=== PATIENT | male | born 1970 | race Caucasian/White ===

== ENCOUNTER 2016-06-29 23:20 | Inpatient (IN) | payer OTHER ==
[~2016-06-29] VITALS: Ht 175.3 cm; Wt 88.5 kg
[2016-06-29] MEDS: NITROGLYCERIN 0.4 MG SL 25 TABS/BTL SL SCH ×3 (00:05→23:58)
[~2016-06-29 23:20] MED LIST: ASPI325T PO; CARD240C6 PO; DILA100C PO; IBUP-232 PO; LORA-474 PO; PANT20 PO
[2016-06-29 23:22] VITALS: BP 127/87; PULSE 124; RESP 24; TEMP 97.7
[2016-06-29 23:25] VITALS: O2SAT 99
[2016-06-29] MEDS ORDERED: SODIUM CHLORIDE 0.9% FLUSH 5 ML FLUSH IVF PRN (23:45)
[2016-06-29] MEDS ORDERED: DILTIAZEM HCL 25 MG/5 ML VIAL IV PUSH ONE (23:45)
[2016-06-29] MEDS ORDERED: ASPIRIN 325 MG TAB PO ONE (23:45)
[2016-06-30] VITALS (30 sets, daily range): BP systolic 96–154; BP diastolic 67–96; PULSE 84–138; RESP 14–22; TEMP 97.6–98.7; O2SAT 92–97
[2016-06-30 00:04] LABS: AUTOMATED NEUTROPHIL # 5.8 TH/MM3 (1.8-7.7); BASOPHIL # 0.1 TH/MM3 (0-0.2); BASOPHIL % 0.8 % (0.0-2.0); EOSINOPHIL # 0.1 TH/MM3 (0-0.4); EOSINOPHIL % 0.7 % (0.0-4.0); HEMATOCRIT 40.4 % (39.0-51.0); HEMO FLAGS DIFF FINAL; LYMPHOCYTE # 1.8 TH/MM3 (1.0-4.8); MEAN CELL VOLUME 97.3 FL (80.0-100.0); MEAN CORPUSCULAR HEMOGLOBIN 34.2 PG (27.0-34.0); MEAN CORPUSCULAR HGB CONC 35.2 % (32.0-36.0); MONO % 11.4 % (0.0-8.0); NEUT % 66.1 % (16.0-70.0); PLATELET COUNT 115 TH/MM3 (150-450); RED BLOOD COUNT 4.15 MIL/MM3 (4.50-5.90); RED CELL DISTRIBUTION WIDTH 14.2 % (11.6-17.2); WHITE BLOOD COUNT 8.8 TH/MM3 (4.0-11.0)
[2016-06-30] MEDS: RESP: ALBUTEROL 2.5 MG/IPRATROPIUM 0.5 MG NEB (SCH) INH ×2 (00:08→00:09)
[2016-06-30 00:10] LABS: APTT (PATIENT) 30.6 SEC (24.3-30.1); INTERNATIONAL NORMALIZED RATIO 1.4 RATIO; PROTHROMBIN TIME - PATIENT 16.1 SEC (9.8-11.6)
[2016-06-30 00:25] LABS: ANION GAP 10 MEQ/L (5-15); BICARBONATE 26.8 MEQ/L (21.0-32.0); BLOOD UREA NITROGEN 12 MG/DL (7-18); CHLORIDE 94 MEQ/L (98-107); GLOMERULAR FILTRATION RATE 98 ML/MIN (>89); MAGNESIUM 1.1 MG/DL (1.5-2.5); POTASSIUM 3.5 MEQ/L (3.5-5.1); SODIUM (NA) 131 MEQ/L (136-145)
[2016-06-30 00:35] LABS: CREATINE KINASE 232 U/L (39-308)
[2016-06-30 00:43] LABS: CALCIUM-PROTEIN CORRECTED 6.8 MG/DL (8.5-10.1)
--- NOTE | 2016-06-30 00:47 | PD ---
HPI Chief Complaint: Respiratory Symptoms Time Seen by Provider: 23:44 Travel History International Travel<30 days: No Contact w/Intl Traveler<30days: No Traveled to known affect area: No History of Present Illness HPI The patient's 45 years old. He arrives by EMS. He is undomiciled. He reports that the past couple has had shortness of breath a sharp chest pain frequent cough with green sputum and dyspnea. EMS reports wheezing bilaterally. They noticed A. fib on their arrival with a heart rate about 110 to 120s. The patient was given to albuterol nebulized treatments and 1 L normal saline. 125 mg Solu-Medrol also given. The heart rate increased to 150. 20mg Cardizem given and rate upon ER arrival was 120s. EMS reports minimal coughing en route to the ER. Patient states he is having difficulty breathing times a couple weeks now. He denies a known history of AL. He reports smoking tobacco however intends to quit. PFSH Past Medical History Arthritis: Yes Cardiovascular Problems: Yes Diminished Hearing: No Gastrointestinal Disorders: Yes Genitourinary: No Immune Disorder: No Musculoskeletal: Yes Neurologic: Yes Reproductive: No Respiratory: No Seizures: Yes Tetanus Vaccination: Unknown Influenza Vaccination: Yes Past Surgical History Abdominal Surgery: Yes (COLOSTOMY AND REVERSAL) Eye Surgery: Yes ( A CHILD) Other Surgery: Yes Social History Alcohol Use: Yes (DAILY) Tobacco Use: Yes Substance Use: No (PAST HX OF HEROINE) Allergies-Medications (Allergen,Severity, Reaction): Coded Allergies: No Known Allergies (Unverified , 06/29/16) Reported Meds & Prescriptions Reported Meds & Active Scripts Active No Active Prescriptions or Reported Medications Review of Systems Except as stated in HPI: all other systems reviewed are Neg General / Constitutional: No: Fever, Chills Cardiovascular: Positive: Chest Pain or Discomfort Respiratory: Positive: Cough, Shortness of Breath, Wheezing Physical Exam Narrative GENERAL: 45 yo M, WNWD, undomiciled/poor hygiene SKIN: Warm and dry. HEAD: Atraumatic. Normocephalic. EYES: Pupils equal and round. No scleral icterus. No injection or drainage. ENT: No nasal bleeding or discharge. Mucous membranes pink and moist. NECK: Trachea midline. No JVD. CARDIOVASCULAR: Regular rate and rhythm. RESPIRATORY: Coarse wheezing present bilaterally. Minimal tachypnea. The patient speaks full sentences. GASTROINTESTINAL: Abdomen soft, non-tender, nondistended. Hepatic and splenic margins not palpable. MUSCULOSKELETAL: Extremities without clubbing, cyanosis. 2+ pitting edema is present bilaterally. NEUROLOGICAL: Awake and alert. No obvious cranial nerve deficits. Motor grossly within normal limits. Five out of 5 muscle strength in the arms and legs. Normal speech. PSYCHIATRIC: Appropriate mood and affect; insight and judgment normal. Data Data Last Documented VS Vital Signs Date Time Temp Pulse Resp B/P Pulse Ox O2 Delivery O2 Flow Rate FiO2 06/30/16 00:38 102 18 96/67 95 Room Air 06/29/16 23:25 2 06/29/16 23:22 97.7 Vital signs reviewed Orders Electrocardiogram (06/29/16 23:44) Basic Metabolic Panel (Bmp) (06/29/16 23:44) B-Type Natriuretic Peptide (06/29/16 23:44) Ckmb (Isoenzyme) Profile (06/29/16 23:44) Complete Blood Count With Diff (06/29/16 23:44) Magnesium (Mg) (06/29/16 23:44) Prothrombin Time / Inr (Pt) (06/29/16 23:44) Act Partial Throm Time (Ptt) (06/29/16 23:44) Troponin I (06/29/16 23:44) Chest, Single Ap (06/29/16 23:44) Ecg Monitoring (06/29/16 23:44) Iv Access Insert/Monitor (06/29/16 23:44) Oximetry (06/29/16 23:44) Oxygen Administration (06/29/16 23:44) Aspirin (Aspirin) (06/29/16 23:45) Sodium Chloride 0.9% Flush (Ns Flush) (06/29/16 23:45) Nitroglycerin Sl (Nitrostat Sl) (06/29/16 23:45) Albuterol-Ipratropium Neb (Duoneb Neb) (06/29/16 23:45) Diltiazem Inj (Cardizem Inj) (06/29/16 23:45) Diltiazem Inj (Cardizem Inj) (06/29/16 23:45) Protein Corrected Calcium(Pcc) (06/29/16 23:50) CKMB (06/29/16 23:50) CKMB% (06/29/16 23:50) Blood Culture (06/30/16 00:47) Ceftriaxone Inj (Rocephin Inj) (06/30/16 01:00) Azithromycin Inj (Zithromax Inj) (06/30/16 01:00) Aspirin (Aspirin) (06/30/16 01:00) Nitroglycerin 2% Oint (Nitroglycerin 2% (06/30/16 01:00) Enoxaparin Inj (Lovenox Inj) (06/30/16 01:00) Furosemide Inj (Lasix Inj) (06/30/16 01:00) Calcium Gluconate Inj (Calcium Gluconate (06/30/16 01:00) Magnesium Sulfate 1 Gm Premix (Magnesium (06/30/16 01:00) Labs Laboratory Tests Test 06/29/16 23:50 White Blood Count 8.8 TH/MM3 Red Blood Count 4.15 MIL/MM3 Hemoglobin 14.2 GM/DL Hematocrit 40.4 % Mean Corpuscular Volume 97.3 FL Mean Corpuscular Hemoglobin 34.2 PG Mean Corpuscular Hemoglobin 35.2 % Concent Red Cell Distribution Width 14.2 % Platelet Count 115 TH/MM3 Mean Platelet Volume 9.3 FL Neutrophils (%) (Auto) 66.1 % Lymphocytes (%) (Auto) 21.0 % Monocytes (%) (Auto) 11.4 % Eosinophils (%) (Auto) 0.7 % Basophils (%) (Auto) 0.8 % Neutrophils # (Auto) 5.8 TH/MM3 Lymphocytes # (Auto) 1.8 TH/MM3 Monocytes # (Auto) 1.0 TH/MM3 Eosinophils # (Auto) 0.1 TH/MM3 Basophils # (Auto) 0.1 TH/MM3 CBC Comment DIFF FINAL Differential Comment Prothrombin Time 16.1 SEC Prothromb Time International 1.4 RATIO Ratio Activated Partial 30.6 SEC Thromboplast Time Sodium Level 131 MEQ/L Potassium Level 3.5 MEQ/L Chloride Level 94 MEQ/L Carbon Dioxide Level 26.8 MEQ/L Anion Gap 10 MEQ/L Blood Urea Nitrogen 12 MG/DL Creatinine 0.84 MG/DL Estimat Glomerular Filtration 98 ML/MIN Rate Random Glucose 125 MG/DL Calcium Level 7.0 MG/DL Protein Corrected Calcium 6.8 MG/DL Magnesium Level 1.1 MG/DL Total Creatine Kinase 232 U/L Troponin I 0.12 NG/ML B-Type Natriuretic Peptide 785 PG/ML Total Protein 7.7 GM/DL MDM Medical Decision Making Medical Screen Exam Complete: Yes Emergency Medical Condition: Yes Medical Record Reviewed: Yes Differential Diagnosis NSTEMI, unstable angina, coronary vasospasm, PE, PTX, aortic dissection, pericarditis, myocarditis, endocarditis, PNA, esophageal disease, aneurysm, musculoskeletal etiologies, anxiety, cocaine/sympathomimetic abuse Narrative Course CBC & BMP Diagram 06/29/16 23:50 BNP 785 Troponin 0.12 Magnesium 1.1 Protein corrected calcium 6.8 EKG reveals atrial fibrillation with a rate of 110, left anterior fascicular block pattern INR 1.4 Chest x-ray reveals a right base consolidation with cardiomegaly. Rocephin azithromycin initiated. Blood cultures drawn. 40 mg IV Lasix given. The patient received about 5 rounds of nebulized breathing treatments. He received 125 mg Solu-Medrol. Nitropaste applied. Cardizem drip started. Magnesium replenished. Calcium replenished. Aspirin given. d/w Dr Guerrero. CIC placement. Critical Care Narrative Aggregate critical care time was 33 minutes. Time to perform other separately billable procedures was not included in the critical care time. My time did not include minutes spent treating any other patients simultaneously or on activities that did not directly contribute to the patient's treatment. The services I provided to this patient were to treat and/or prevent clinically significant deterioration that could result in: Pulmonary arrest, sepsis, septic shock, cardiac arrest I provided critical care services requiring my management, as noted below: Chart data review, documentation time, medication orders and management, vital sign assessments/reviewing monitor data, ordering and reviewing lab tests, ordering and interpreting/reviewing x-rays and diagnostic studies, care of the patient and discussion of the patient with the admitting physicians. Diagnosis Primary Impression: CHF (congestive heart failure) Qualified Code: I50.9 - Congestive heart failure, unspecified congestive heart failure chronicity, unspecified congestive heart failure type Additional Impressions: PNA (pneumonia) Qualified Code: J18.1 - Pneumonia of right lower lobe due to infectious organism Dyspnea Qualified Code: R06.00 - Dyspnea, unspecified type Chest pain Qualified Code: R07.9 - Chest pain, unspecified type Hypomagnesemia Hypocalcemia NSTEMI (non-ST elevated myocardial infarction) Atrial fibrillation with RVR Admitting Information Admitting Physician Requests: Admit Scripts No Active Prescriptions or Reported Meds Rl Rogers MD Jun 30, 2016 00:47
[2016-06-30] MEDS ORDERED: AZITHROMYCIN INJ 500 MG in SODIUM CHLOR 0.9% 250 ML INJ 250 ML IV ONE (01:00)
[2016-06-30] MEDS ORDERED: ENOXAPARIN SODIUM 100 MG/ML SYRINGE SQ ONE (01:00)
[2016-06-30] MEDS ORDERED: CALCIUM GLUCONATE INJ 1 GM in DEXTROSE 5% IN WATER 100ML INJ 100 ML IV ONE ×4 (01:00→18:00)
[2016-06-30] MEDS ORDERED: FUROSEMIDE 40 MG/4 ML VIAL IV PUSH ONE (01:00)
[2016-06-30] MEDS ORDERED: cefTRIAXone INJ 1,000 MG in SODIUM CHLORIDE 0.9% INJ 100 ML IV ONE (01:00)
[2016-06-30] MEDS ORDERED: ASPIRIN 325 MG TAB PO ONE (01:00)
[2016-06-30] MEDS ORDERED: NITROGLYCERIN 2% OINT 1 GM PACKET TOP ONE (01:00)
[2016-06-30 01:02] LABS: CKMB 5.1 NG/ML (0.5-3.6)
[2016-06-30] MEDS ORDERED: ONDANSETRON HCL 4 MG/2 ML VIAL IVP PRN (01:15)
[2016-06-30] MEDS ORDERED: NALOXONE HCL 0.4 MG/ML AMP IV PRN (01:15)
[2016-06-30] MEDS: MAGNESIUM SULFATE 1 GM PREMIX 100 ML IV SCH ×2 (01:20→02:12)
--- NOTE | 2016-06-30 01:27 | RADRPT ---
EXAM DATE/TIME: 06/29/2016 23:49 [facility] COMPARISON: No previous studies available for comparison. INDICATIONS : Chest pain. MEDICAL HISTORY : None. SURGICAL HISTORY : None. ENCOUNTER: Initial ACUITY: 1 day PAIN SCORE: 4/10 LOCATION: Bilateral chest FINDINGS: Single AP view of the chest. Confluent opacity in the right lower lung indicating pulmonary consolida tion. Small right pleural effusion. Moderate cardiac silhouette enlargement. No evidence of pneumotho rax. CONCLUSION: 1. Right lower lung consolidation and small right pleural effusion. 2. Moderate cardiac silhouette enlargement. Gaudencio Marcum MD on June 30, 2016 at 1:23 Board Certified Radiologist. This report was verified electronically.
[2016-06-30] MEDS: DILTIAZEM INJ 125 MG in SODIUM CHLORIDE 0.9% INJ 100 ML IV SCH ×2 (02:48→19:33)
[2016-06-30] MEDS: SODIUM CHLOR 0.9% 1000 ML INJ 1,000 ML IV SCH ×2 (04:13→15:15)
[2016-06-30 06:43] LABS: INTERNATIONAL NORMALIZED RATIO 1.4 RATIO; PROTHROMBIN TIME - PATIENT 15.6 SEC (9.8-11.6)
[2016-06-30 07:08] LABS: BICARBONATE 25.4 MEQ/L (21.0-32.0); POTASSIUM 3.2 MEQ/L (3.5-5.1)
[2016-06-30 07:25] LABS: CALCIUM-PROTEIN CORRECTED 6.9 MG/DL (8.5-10.1)
--- NOTE | 2016-06-30 08:29 | HHI.HP ---
[facility] Service [facility] Primary Care Physician No Primary Care Physician Admission Diagnosis AFib w RVR, CHF, R Lung PNA, HypoMg, HypoCa, CP, NSTEMI, Dyspnea Diagnoses: (1) Atrial fibrillation with RVR Diagnosis: Principal (2) PNA (pneumonia) Diagnosis: Principal (3) COPD exacerbation Diagnosis: Principal (4) Elevated troponin Diagnosis: Principal Travel History International Travel<30 Days: No Contact w/Intl Traveler <30 Da: No Traveled to Known Affected Are: No History of Present Illness patient is a 45 y/o male with history of COPD and atrial fibrillation who presented to ER with three week history of sob and cough. cough is productive of yellowish sputum. he says that he had on and off fever and chills. he's also complaining of some left sided chest pain. pain is radiating to the right chest. pain is better with sitting up. he says that he's trying to quit smoking and he drinks four beers a day. he says that he was diagnosed with COPD and A- fib few years ago but he doesn't take any medications. Review of Systems Constitutional: COMPLAINS OF: Fever, Chills, DENIES: Weight loss, Night Sweats Eyes: DENIES: Blurred vision, Diplopia, Vision loss, Double Vision Ears, nose, mouth, throat: DENIES: Tinnitus, Vertigo, Throat pain, Epistaxis Respiratory: COMPLAINS OF: Cough, Sputum production, Shortness of breath, DENIES: Apneas, Snoring, Wheezing, Hemoptysis Cardiovascular: COMPLAINS OF: Chest pain, DENIES: Palpitations, Syncope, Dyspnea on Exertion, PND, Lower Extremity Edema, Orthopnea, Claudication Gastrointestinal: DENIES: Abdominal pain, Black stools, Bloody stools, Constipation, Diarrhea, Nausea, Vomiting, Difficulty Swallowing, Anorexia Genitourinary: DENIES: Urinary frequency, Urgency, Hematuria, Dysuria Musculoskeletal: DENIES: Joint pain, Muscle aches, Stiffness, Joint Swelling Integumentary: DENIES: Rash Neurologic: DENIES: Abnormal gait, Headache, Localized weakness, Paresthesias, Seizures, Speech Problems, Tremor, Poor Balance Psychiatric: DENIES: Anxiety, Confusion, Mood changes, Depression, Hallucinations, Agitation, Suicidal Ideation, Homicidal Ideation, Delusions Past Family Social History Past Medical History COPD atrial fibrillation diverticulitis Past Surgical History colostomy Reported Medications none Allergies: Coded Allergies: No Known Allergies (Unverified , 06/29/16) Active Ordered Medications Current Medications Aspirin (Aspirin) 325 mg ONCE ONCE PO Last administered on 06/29/16 23:58; Start 06/29/16 at 23:45; Stop 06/29/16 at 23:46; Status DC IV Flush (NS Flush) 2 ml UNSCH PRN IVF FLUSH AFTER USING IV ACCESS; Start 06/29 at 23:45 Nitroglycerin (Nitrostat Sl) 0.4 mg Q5M SL Last administered on 06/29/16 00:05 ; Start 06/29/16 at 23:45; Stop 06/29/16 at 23:56; Status DC Albuterol/ Ipratropium 1 ampule 1 ampule Q15M INH Last administered on 00:09; Start 06/29/16 at 23:45; Stop 06/30/16 at 00:16; Status DC Diltiazem HCl/ Sodium Chloride (Cardizem Inj/NS Inj) 125 ml @ 0 mls/hr TITRATE IV Last administered on 06/30/16 02:48; Start 06/29/16 at 23:45 Diltiazem HCl 23 mg 23 mg BOLUS ONCE IV PUSH ; Start 06/29/16 at 23:45; Stop at 23:46; Status DC Ceftriaxone Sodium 1000 mg/ Sodium Chloride 100 ml @ 200 mls/hr ONCE ONCE IV Last administered on 06/30/16 01:20; Start 06/30/16 at 01:00; Stop 06/30/16 at 01:29; Status DC Azithromycin/ Sodium Chloride (Zithromax Inj/ NS 250 ml Inj) 250 ml @ 250 mls/ hr ONCE ONCE IV Last administered on 06/30/16 04:13; Start 06/30/16 at 01:00 ; Stop 06/30/16 at 01:59; Status DC Aspirin (Aspirin) 325 mg ONCE ONCE PO ; Start 06/30/16 at 01:00; Stop 06/30/16 at 01:01; Status DC Nitroglycerin (Nitroglycerin 2% Oint) 1 inch ONCE ONCE TOP Last administered on 06/30/16 01:20; Start 06/30/16 at 01:00; Stop 06/30/16 at 01:01; Status DC Enoxaparin Sodium (Lovenox Inj) 90 mg ONCE ONCE SQ Last administered on 01:20; Start 06/30/16 at 01:00; Stop 06/30/16 at 01:01; Status DC Furosemide 40 mg 40 mg ONCE ONCE IV PUSH Last administered on 06/30/16 01:20 ; Start 06/30/16 at 01:00; Stop 06/30/16 at 01:01; Status DC Calcium Gluconate 1 gm/Dextrose 110 ml @ 110 mls/hr ONCE ONCE IV Last administered on 06/30/16 02:12; Start 06/30/16 at 01:00; Stop 06/30/16 at 01:59 ; Status DC Magnesium Sulfate/ Dextrose 100 ml @ 100 mls/hr Q1H IV Last administered on 02:12; Start 06/30/16 at 01:00; Stop 06/30/16 at 02:59; Status DC Sodium Chloride (NS 1000 ml Inj) 1,000 ml @ 100 mls/hr Q10H IV Last administered on 06/30/16 04:13; Start 06/30/16 at 01:09 Acetaminophen (Tylenol) 650 mg Q4H PRN PO TEMP > 100.4; Start 06/30/16 at 01:15 Ondansetron HCl (Zofran Inj) 4 mg Q6H PRN IVP NAUSEA OR VOMITING; Start at 01:15 Magnesium Hydroxide (Milk Of Magnesia Liq) 30 ml Q12H PRN PO CONSTIPATION; Start 06/30/16 at 01:15 Enoxaparin Sodium (Lovenox Inj) 90 mg Q12H SQ ; Start 06/30/16 at 13:00 Naloxone HCl 0.4 mg 0.4 mg UNSCH PRN IV SEE LABEL COMMENTS; Start 06/30/16 at 01:15 Ceftriaxone Sodium 1000 mg/ Sodium Chloride 100 ml @ 200 mls/hr Q24H IV ; Start 07/01/16 at 01:00 Azithromycin/ Sodium Chloride (Zithromax Inj/ NS 250 ml Inj) 250 ml @ 250 mls/ hr Q24H IV ; Start 07/01/16 at 01:00 Family History diabetes Social History smokes and drinks daily. Physical Exam Vital Signs Vital Signs Date Time Temp Pulse Resp B/P Pulse Ox O2 Delivery O2 Flow Rate FiO2 06/30/16 06:00 85 06/30/16 05:00 102 06/30/16 04:00 102 06/30/16 03:00 117 06/30/16 03:00 97.6 117 18 123/96 97 06/30/16 02:13 104 20 130/71 96 Nasal Cannula 2 06/30/16 01:13 103 20 118/68 97 Nasal Cannula 2 06/30/16 00:38 102 18 96/67 95 Room Air 06/30/16 00:38 94 Room Air 06/30/16 00:05 95 Nasal Cannula 2.50 06/29/16 23:25 118 24 92 Room Air 06/29/16 23:25 99 Nasal Cannula 2 06/29/16 23:22 97.7 124 24 127/87 Physical Exam GENERAL: somewhat ill looking SKIN: No rashes, ecchymoses or lesions. Cool and dry. HEAD: Atraumatic. Normocephalic. No temporal or scalp tenderness. EYES: Pupils equal round and reactive. Extraocular motions intact. No scleral icterus. No injection or drainage. ENT: Nose without bleeding, purulent drainage or septal hematoma. Throat without erythema, tonsillar hypertrophy or exudate. Uvula midline. Airway patent. NECK: Trachea midline. No JVD or lymphadenopathy. Supple, nontender, no meningeal signs. CARDIOVASCULAR: tachycardic with irregular rhythm RESPIRATORY: diminished air entry in bases GASTROINTESTINAL: Abdomen soft, non-tender, nondistended. No hepato-splenomegaly , or palpable masses. No guarding. MUSCULOSKELETAL: Extremities without clubbing, cyanosis, or edema. No joint tenderness, effusion, or edema noted. No calf tenderness. Negative Homans sign bilaterally. NEUROLOGICAL: Awake and alert. Cranial nerves II through XII intact. Motor and sensory grossly within normal limits. Five out of 5 muscle strength in all muscle groups. Normal speech. Laboratory Laboratory Tests Test 06/29/16 06/30/16 23:50 06:16 White Blood Count 8.8 Red Blood Count 4.15 Hemoglobin 14.2 Hematocrit 40.4 Mean Corpuscular Volume 97.3 Mean Corpuscular Hemoglobin 34.2 Mean Corpuscular Hemoglobin 35.2 Concent Red Cell Distribution Width 14.2 Platelet Count 115 Mean Platelet Volume 9.3 Neutrophils (%) (Auto) 66.1 Lymphocytes (%) (Auto) 21.0 Monocytes (%) (Auto) 11.4 Eosinophils (%) (Auto) 0.7 Basophils (%) (Auto) 0.8 Neutrophils # (Auto) 5.8 Lymphocytes # (Auto) 1.8 Monocytes # (Auto) 1.0 Eosinophils # (Auto) 0.1 Basophils # (Auto) 0.1 CBC Comment DIFF FINAL Differential Comment Prothrombin Time 16.1 15.6 Prothromb Time International 1.4 1.4 Ratio Activated Partial 30.6 Thromboplast Time Sodium Level 131 133 Potassium Level 3.5 3.2 Chloride Level 94 95 Carbon Dioxide Level 26.8 25.4 Anion Gap 10 13 Blood Urea Nitrogen 12 9 Creatinine 0.84 0.69 Estimat Glomerular Filtration 98 123 Rate Random Glucose 125 157 Calcium Level 7.0 7.1 Protein Corrected Calcium 6.8 6.9 Magnesium Level 1.1 Total Creatine Kinase 232 181 Creatine Kinase MB 5.1 Troponin I 0.12 0.12 B-Type Natriuretic Peptide 785 Total Protein 7.7 7.6 Date/Time Procedure Status Source Growth 06/30/16 01:20 Aerobic Blood Culture Received Blood Peripheral Pending 06/30/16 01:20 Anaerobic Blood Culture Received Blood Peripheral Pending Result Diagram: 06/29/16 2350 06/30/16 0616 Imaging CXR; RLL consolidation EKG; atrial fibrillation with rapid ventricular response Assessment and Plan Assessment and Plan A/P - COPD exacerbation/ RLL pneumonia continue with IV antibiotics- start IV steroids and neb treatment- keep on oxygen to keep O2 sat > 90%- follow the cultures counselled on smoking cessation. -atrial fibrillation with rapid ventricular response continue Cardizem drip- started on Lovenox- cardiology consulted echo ( 02/01) with EF 55% -elevated troponin- received a dose of aspirin earlier- cardiology consulted -alcohol abuse; start thiamine and multivitamin/ ativan as needed- watch for withdrawal counselled on drinking cessation -hypokalemia/ hypocalcemia/ hypomagnesemia; will replace and monitor -thrombocytopenia; chronic due to alcohol- will monitor -DVT prophylaxis; on Lovenox- will monitor CBC closely due to thrombocytopenia Discussed Condition With the patient and RN. Physician Certification 2 Midnight Certification Type: Admission for Inpatient Services Order for Inpatient Services The services are ordered in accordance with Medicare regulations or non- Medicare payer requirements, as applicable. In the case of services not specified as inpatient-only, they are appropriately provided as inpatient services in accordance with the 2-midnight benchmark. Estimated LOS (days): 2 days is the estimated time the patient will need to remain in the hospital, assuming treatment plan goals are met and no additional complications. Post-Hospital Plan: Home Problem Qualifiers (1) PNA (pneumonia): Qualified Code: J18.1 - Pneumonia of right lower lobe due to infectious organism Sam Malik MD Jun 30, 2016 08:29
[2016-06-30] MEDS ORDERED: POTASSIUM CHLORIDE 20 MEQ CONTROLLED RELEASE TAB PO ONE ×2 (08:30→12:00)
[2016-06-30] MEDS ORDERED: RESP: ALBUTEROL 1.25 MG/3 ML NEB (PRN) NEB (08:30)
[2016-06-30] MEDS ORDERED: LORazepam 2 MG/ML VIAL IV PUSH PRN ×5 (08:30→21:45)
[2016-06-30] MEDS: methylPREDNISolone SOD SUCC 40 MG/1 ML VIAL IV PUSH SCH ×3 (09:05→21:08)
[2016-06-30] MEDS: THIAMINE HCL 100 MG TAB PO SCH (09:05)
[2016-06-30] MEDS: MULTIVITAMIN TAB PO SCH (09:05)
[2016-06-30] MEDS ORDERED: DILTIAZEM-CD 120 MG CAP ER PO SCH (10:15)
[2016-06-30 11:26] LABS: BICARBONATE 26.5 MEQ/L (21.0-32.0); MAGNESIUM 1.1 MG/DL (1.5-2.5); POTASSIUM 3.6 MEQ/L (3.5-5.1)
[2016-06-30] MEDS: RESP: ALBUTEROL 2.5 MG/IPRATROPIUM 0.5 MG NEB (SCH) NEB ×3 (11:43→20:40)
[2016-06-30] MEDS: ENOXAPARIN SODIUM 100 MG/ML SYRINGE SQ SCH (11:56)
[2016-06-30 12:08] LABS: CALCIUM-PROTEIN CORRECTED 7.1 MG/DL (8.5-10.1)
[2016-06-30 12:43] LABS: MAGNESIUM 1.1 MG/DL (1.5-2.5)
--- NOTE | 2016-06-30 13:02 | MB ---
cc: YANET VELASQUEZ MD DATE OF CONSULTATION 06/30/2016 REASON FOR CONSULTATION Atrial fibrillation with rapid ventricular rate. HISTORY OF PRESENT ILLNESS Mr. Polk is a 45-year-old man [place] does give a longstanding history atrial fibrillation and medication noncompliance as he is unable to afford his medications. He does report a three-week history of shortness of breath and cough with yellow sputum with fever and chills. He was admitted and is being treated for pneumonia. He denied any chest pain to me. Cardiology was consulted for the atrial fibrillation. PAST MEDICAL HISTORY 1. Seizure disorder. 2. Diverticular disease. 3. Colostomy with reversal. 4. Atrial fibrillation. 5. COPD. ALLERGIES No known drug allergies. MEDICATIONS None. HOSPITAL MEDICATIONS Per the record. FAMILY HISTORY Positive for diabetes. SOCIAL HISTORY The patient is homeless, smokes and drinks daily. PHYSICAL EXAMINATION VITAL SIGNS: 97.9, 108, 22, 104/71. GENERAL: He is a well appearing man who is in no apparent distress. NECK: His neck is free from JVD. LUNGS: The lungs have some scattered wheezes. CARDIOVASCULAR EXAMINATION: He has an irregularly irregular heart rate that is mildly tachycardiac. ABDOMEN: Soft. EXTREMITIES: Free from edema. LABORATORY VALUES sodium of 131 initially. His potassium is 3.2 this morning. Calcium is 7.1. His troponins thus far are 0.12/0.12. Telemetry shows atrial fibrillation at 108 beats/minute. IMPRESSIONS Atrial Fibrillation - The patient does have a longstanding history of atrial fibrillation. At this point he is reasonably controlled on the Cardizem drip. I am going to change him to p.o. Cardizem. The patient is a poor anticoagulation candidate secondary to noncompliance. His CHADS VASc score seems relatively low at 0. Thus an aspirin would be reasonable but he is thrombocytopenic so in light of that I would not place him on any anticoagulation. Pneumonia - This is being managed by the primary team. Elevated Troponin - This is in the indeterminate range and may be aggravated by his A-fib with RVR. At this point I would check an echocardiogram as he may have alcoholic cardiomyopathy or other. Pending this, I would potentially consider stress testing though he again is not a revascularization candidate secondary to his poor compliance. Afshan Grant/SSB /8:56 AM /11:39 AM
--- NOTE | 2016-06-30 14:50 | EKG ---
Date Performed: 06/30/2016 Time Performed: 05:43:14 PTAGE: 45 years EKG: Atrial fibrillation with rapid ventricular response with frequent multifocal PVCs or aberra nt ventricular conduction Possible left anterior fascicular block Anterolateral T wave changes are no nspecific Low QRS voltages in limb leads Abnormal ECG Since PREVIOUS TRACING , no significant change noted PREVIOUS TRACIN06/29/2016 23.31 DOCTOR: Patrick Campbell Interpretating Date/Time 06/30/2016 14:46:33
--- NOTE | 2016-06-30 14:50 | EKG ---
Date Performed: 06/29/2016 Time Performed: 23:31:25 PTAGE: 45 years EKG: ATRIAL FIBRILLATION WITH RAPID VENTRICULAR RESPONSE LEFT ANTERIOR FASCICULAR BLOCK ABNORMAL ECG Compared to PREVIOUS TRACING , the rate is slightly faster. PREVIOUS TRACIN02/15/2016 01.43 DOCTOR: Patrick Campbell Interpretating Date/Time 06/30/2016 14:45:16
[2016-06-30] MEDS: MAGNESIUM OXIDE 400 MG TAB PO SCH ×2 (16:42→21:08)
--- NOTE | 2016-06-30 17:13 | EC ---
Study Study Date:06/30/2016 STUDY CONCLUSIONS SUMMARY - Left ventricle: The cavity size was dilated. Wall thickness was normal. Systolic function was severely reduced by visual assessment. The estimated ejection fraction was in the range of 25% to 30%. Wall motion was normal; there were no regional wall motion abnormalities. - Aortic valve: Mild regurgitation. - Mitral valve: Mild to moderate regurgitation. If LV function is below 40, please consider prescribing an ACEI or ARB or document rationale for non-use. PROCEDURE DATA STUDY STATUS: Elective. Procedure: Transthoracic echocardiography. Image quality was good. Scanning was performed from the parasternal, apical, and subcostal acoustic windows. Study completion: The patient tolerated the procedure well. Transthoracic echocardiography. M-mode, complete 2D, complete spectral Doppler, and color Doppler. Height: Height: 69in. Weight: Weight: 175.6lb. Body mass index: BMI: 26kg/m^2. Body surface area: BSA: 1.96m^2. Patient status: Inpatient. CARDIAC ANATOMY LEFT VENTRICLE: The cavity size was dilated. Wall thickness was normal. Systolic function was severely reduced by visual assessment. The estimated ejection fraction was in the range of 25% to 30%. Wall motion was normal; there were no regional wall motion abnormalities. AORTIC VALVE: Trileaflet; normal thickness leaflets. Doppler: Transvalvular velocity was within the normal range. There was no stenosis. Mild regurgitation. AORTA: Aortic root: The aortic root was mildly dilated. MITRAL VALVE: Structurally normal valve. Doppler: Transvalvular velocity was within the normal range. There was no evidence for stenosis. Mild to moderate regurgitation. Valve area by pressure half-time: 4.07cm^2. Indexed valve area by pressure half-time: 2.08cm^2/m^2. LEFT ATRIUM: The atrium was at the upper limits of normal in size. RIGHT VENTRICLE: The cavity size was normal. Wall thickness was normal. PULMONIC VALVE: Doppler: Transvalvular velocity was within the normal range. There was no evidence for stenosis. No regurgitation. TRICUSPID VALVE: Structurally normal valve. Doppler: Transvalvular velocity was within the normal range. Trace to mild regurgitation. PULMONARY ARTERY: The main pulmonary artery was normal-sized. Systolic pressure was within the normal range. RIGHT ATRIUM: The atrium was normal in size. PERICARDIUM: There was no pericardial effusion. SYSTEMIC VEINS: Inferior vena cava: The vessel was normal in size. Patient weight: 175.6lb _Ejection fraction:_ 65-75% _Fractional shortening:_ 32% up to 5Kg 5-11.5Kg 11.6-22.9Kg 23-45Kg 45-57Kg Aortic Root 7-13 <17 13-22 17-27 17-27 LA diam 6-13 <23 24-38 33-47 37-40 RVID 10-17 7-15 7-15 7-18 8-17 LVIDd 12-22 <32 24-38 33-47 37-40 LVPW 2-4 3-6 5-7 6-8 7-8 IVS 2-4 3-6 5-7 6-8 7-8 BASIC MEASUREMENTS ADULT NORMAL Left ventricle LV internal dimension, ED, chordal *54.8 mm 43-52 level, PLAX LV internal dimension, ES, chordal *49 mm 23-38 level, PLAX Fractional shortening, chordal level, *11 % >29 PLAX LV posterior wall thickness, ED 14.1 mm IVS/LVPW ratio, ED 1 <1.3 Volume, ED, MOD, 1-plane 127 ml Volume, ES, MOD, 1-plane 83 ml Ejection fraction, MOD, 1-plane 35 % Stroke volume, MOD, 1-plane 44 ml Volume index, ED, MOD, 1-plane 65 ml/m^2 Volume index, ES, MOD, 1-plane 42 ml/m^2 Stroke index, MOD, 1-plane 22.4 ml/m^2 Ventricular septum Septal thickness, ED 14.1 mm Aortic valve Leaflet separation 22 mm 15-26 Left atrium Anterior-posterior dimension 39 mm Anterior-posterior dimension index 1.99 cm/m^2 <2.2 BASIC MEASUREMENTS ADULT NORMAL Aortic valve Leaflet separation 22 mm 15-26 Aorta Root diameter, ED *43 mm 20-37 DOPPLER MEASUREMENTS ADULT NORMAL Aortic valve Peak velocity, S 147 cm/s Regurgitant velocity, ED 339 cm/s Regurgitant deceleration 3360 cm/s^2 Regurgitant pressure half-time 320 ms Regurgitant gradient, ED 46 mm Hg Mitral valve Pressure half-time 54 ms Valve area, pressure half-time 4.07 cm^2 Valve area index, pressure half-time 2.08 cm^2/m^2 LEGEND: Mean values are shown as u=mean value. Asterisk (*) aparicio values outside specified normal range. Prepared and signed by Kash Hughes [id number]
[2016-06-30] MEDS ORDERED: LORazepam 2 MG TAB PO PRN (21:45)
[2016-06-30] MEDS ORDERED: FLUMAZENIL 0.5 MG/5 ML VIAL IV PUSH PRN (21:45)
[2016-06-30] MEDS: LORazepam 1 MG TAB PO PRN (23:46)
[2016-07-01] VITALS (24 sets, daily range): BP systolic 84–126; BP diastolic 50–82; PULSE 80–109; RESP 14–30; TEMP 97.4–99.3; O2SAT 70–100
[2016-07-01] MEDS: ENOXAPARIN SODIUM 100 MG/ML SYRINGE SQ SCH ×2 (01:21→11:21)
[2016-07-01] MEDS: cefTRIAXone INJ 1,000 MG in SODIUM CHLORIDE 0.9% INJ 100 ML IV SCH (01:21)
[2016-07-01] MEDS: SODIUM CHLOR 0.9% 1000 ML INJ 1,000 ML IV SCH (02:05)
[2016-07-01] MEDS: AZITHROMYCIN INJ 500 MG in SODIUM CHLOR 0.9% 250 ML INJ 250 ML IV SCH (02:05)
[2016-07-01] MEDS: LORazepam 1 MG TAB PO PRN ×2 (03:42→11:03)
[2016-07-01] MEDS: RESP: ALBUTEROL 2.5 MG/IPRATROPIUM 0.5 MG NEB (SCH) NEB ×2 (03:47→08:42)
[2016-07-01] MEDS: methylPREDNISolone SOD SUCC 40 MG/1 ML VIAL IV PUSH SCH ×3 (05:39→21:59)
[2016-07-01 06:23] LABS: AUTOMATED NEUTROPHIL # 7.6 TH/MM3 (1.8-7.7); BASOPHIL % 0.3 % (0.0-2.0); HEMATOCRIT 39.3 % (39.0-51.0); LYMPH % 2.9 % (9.0-44.0); LYMPHOCYTE # 0.2 TH/MM3 (1.0-4.8); MEAN CELL VOLUME 99.3 FL (80.0-100.0); MEAN CORPUSCULAR HEMOGLOBIN 34.3 PG (27.0-34.0); MEAN CORPUSCULAR HGB CONC 34.5 % (32.0-36.0); MONO % 7.5 % (0.0-8.0); NEUT % 89.3 % (16.0-70.0); PLATELET COUNT 87 TH/MM3 (150-450); RED BLOOD COUNT 3.95 MIL/MM3 (4.50-5.90); RED CELL DISTRIBUTION WIDTH 14.5 % (11.6-17.2); WHITE BLOOD COUNT 8.5 TH/MM3 (4.0-11.0)
[2016-07-01 06:29] LABS: HEMO FLAGS AUTO DIFF
[2016-07-01 06:49] LABS: BICARBONATE 20.4 MEQ/L (21.0-32.0); MAGNESIUM 1.3 MG/DL (1.5-2.5); POTASSIUM 3.8 MEQ/L (3.5-5.1)
--- NOTE | 2016-07-01 07:32 | PD.CARD.PN ---
Subjective Subjective Remarks Pt without complaints Objective Medications Current Medications Medications (Trade) Dose Ordered Sig/Naren Route Start Time Stop Time Status Last Admin IV Flush 2 ml 2 ml UNSCH PRN IVF 06/29/16 23:45 Diltiazem HCl 125 mg/Sodium Chloride 125 ml @ 0 mls/hr TITRATE IV 06/29/16 23:45 06/30/16 19:33 (NS 1000 ml Inj) 1,000 ml @ 100 mls/hr Q10H IV 06/30/16 01:09 07/01/16 02:05 (Tylenol) 650 mg Q4H PRN PO 06/30/16 01:15 (Zofran Inj) 4 mg Q6H PRN IVP 06/30/16 01:15 06/30/16 17:26 (Milk Of Magnesia Liq) 30 ml Q12H PRN PO 06/30/16 01:15 (Lovenox Inj) 90 mg Q12H SQ 06/30/16 13:00 07/01/16 01:21 Naloxone HCl 0.4 mg 0.4 mg UNSCH PRN IV 06/30/16 01:15 Ceftriaxone Sodium 1000 mg/ Sodium Chloride 100 ml @ 200 mls/hr Q24H IV 07/01/16 01:00 07/01/16 01:21 (Zithromax Inj/ NS 250 ml Inj) 250 ml @ 250 mls/hr Q24H IV 07/01/16 01:00 07/01/16 02:05 (SoluMEDROL INJ) 40 mg Q8HR IV PUSH 06/30/16 08:15 07/01/16 05:39 (Vitamin B1) 100 mg DAILY PO 06/30/16 09:00 06/30/16 09:05 (Theragran) 1 tab DAILY PO 06/30/16 09:00 06/30/16 09:05 (Ativan Inj) 1 mg Q4H PRN IV PUSH 06/30/16 08:30 06/30/16 17:26 (Cardizem Cd) 120 mg DAILY PO 06/30/16 10:15 06/30/16 11:55 (Mag-Ox) 400 mg Q12HR PO 06/30/16 16:30 06/30/16 21:08 (Romazicon Inj) 0.2 mg Q1M PRN IV PUSH 06/30/16 21:45 (Ativan) 1 mg Q4H PRN PO 06/30/16 21:45 07/01/16 03:42 (Ativan Inj) 1 mg Q4H PRN IV PUSH 06/30/16 21:45 (Ativan) 2 mg Q2H PRN PO 06/30/16 21:45 (Ativan Inj) 2 mg Q2H PRN IV PUSH 06/30/16 21:45 06/30/16 21:51 (Ativan Inj) 2 mg Q1H PRN IV PUSH 06/30/16 21:45 (Ativan Inj) 2 mg Q15M PRN IV PUSH 06/30/16 21:45 Vital Signs / I&O Vital Signs Date Time Temp Pulse Resp B/P Pulse Ox O2 Delivery O2 Flow Rate FiO2 07/01/16 07:00 91 07/01/16 05:00 88 07/01/16 04:00 87 07/01/16 03:00 98.2 98 16 117/80 93 07/01/16 03:00 98 07/01/16 02:00 84 07/01/16 01:00 92 07/01/16 00:00 86 06/30/16 23:00 98.4 93 14 130/90 94 06/30/16 23:00 93 06/30/16 22:00 94 06/30/16 21:00 98 06/30/16 20:40 92 Nasal Cannula 3.00 06/30/16 20:00 90 06/30/16 19:00 97 06/30/16 19:00 98.2 97 16 122/90 92 06/30/16 18:01 94 06/30/16 17:01 91 06/30/16 16:00 100 06/30/16 15:30 98.0 93 22 113/86 93 06/30/16 15:00 92 06/30/16 14:00 94 06/30/16 13:00 92 06/30/16 12:01 138 06/30/16 11:45 98.7 108 20 126/92 94 06/30/16 11:44 96 Nasal Cannula 2.00 06/30/16 11:00 88 06/30/16 10:00 94 06/30/16 09:00 96 06/30/16 08:45 97.9 108 22 104/71 94 06/30/16 08:00 92 I/O 06/30/16 06/30/16 06/30/16 07/01/16 07/01/16 07/01/16 07:00 15:00 23:00 07:00 15:00 23:00 Intake Total 241 ml 2641 ml 1946 ml Output Total 2250 ml 500 ml 520 ml Balance -2009 ml 2141 ml 1426 ml Intake Oral 1050 ml 720 ml IV Total 241 ml 1591 ml 1226 ml Output Urine Total 2250 ml 500 ml 520 ml # Voids 1 2 # Bowel Movements 0 0 Physical Exam GENERAL: Well developed, well nourished. No acute distress. HEENT: Jugular venous pressure is normal. CHEST: Lungs clear to auscultation bilaterally. Unlabored respiratory effort. CARDIAC: irregular rate and rhythm without S3, S4, or murmur. ABDOMEN: Soft, nontender, no hepatosplenomegaly. Bowel sounds present. EXTREMITIES: No clubbing, cyanosis, 1+ edema. Laboratory Laboratory Tests Test 06/30/16 06/30/16 07/01/16 10:30 11:55 05:52 Sodium Level 133 MEQ/L 130 MEQ/L Potassium Level 3.6 MEQ/L 3.8 MEQ/L Chloride Level 94 MEQ/L 95 MEQ/L Carbon Dioxide Level 26.5 MEQ/L 20.4 MEQ/L Anion Gap 13 MEQ/L 15 MEQ/L Blood Urea Nitrogen 9 MG/DL 13 MG/DL Creatinine 0.70 MG/DL 0.92 MG/DL Estimat Glomerular Filtration 121 ML/MIN 89 ML/MIN Rate Random Glucose 174 MG/DL 206 MG/DL Calcium Level 7.4 MG/DL 7.7 MG/DL Protein Corrected Calcium 7.1 MG/DL Magnesium Level 1.1 MG/DL 1.1 MG/DL 1.3 MG/DL Total Protein 7.8 GM/DL Phosphorus Level 3.2 MG/DL Total Creatine Kinase 169 U/L Troponin I 0.10 NG/ML White Blood Count 8.5 TH/MM3 Red Blood Count 3.95 MIL/MM3 Hemoglobin 13.6 GM/DL Hematocrit 39.3 % Mean Corpuscular Volume 99.3 FL Mean Corpuscular Hemoglobin 34.3 PG Mean Corpuscular Hemoglobin 34.5 % Concent Red Cell Distribution Width 14.5 % Platelet Count 87 TH/MM3 Mean Platelet Volume 9.2 FL Neutrophils (%) (Auto) 89.3 % Lymphocytes (%) (Auto) 2.9 % Monocytes (%) (Auto) 7.5 % Eosinophils (%) (Auto) 0.0 % Basophils (%) (Auto) 0.3 % Neutrophils # (Auto) 7.6 TH/MM3 Lymphocytes # (Auto) 0.2 TH/MM3 Monocytes # (Auto) 0.6 TH/MM3 Eosinophils # (Auto) 0.0 TH/MM3 Basophils # (Auto) 0.0 TH/MM3 CBC Comment AUTO DIFF Assessment and Plan Assessment and Plan AF- fair rate control, change to metoprolol secondary to cardiomyopathy Cardiomyopathy- ETOH vs tachycardia vs ischemia vs other -likely ETOH or tachy -optimize therapy CHF acute systolic failure Pneumonia- ETOH- told to quit Jerrica Wright MD Jul 01, 2016 07:32
[2016-07-01 07:58] LABS: SCAN/DIFF AUTO DIFF CONFIRMED
[2016-07-01] MEDS ORDERED: METOPROLOL TARTRATE 50 MG TAB PO SCH (08:00)
[2016-07-01] MEDS ORDERED: PILL SPLITTER OTHER PRN (08:45)
[2016-07-01] MEDS ORDERED: LISINOPRIL 5 MG TAB PO SCH (09:00)
[2016-07-01] MEDS: MULTIVITAMIN TAB PO SCH (09:00)
--- NOTE | 2016-07-01 09:24 | HHI.PR ---
Subjective Remarks f/u; pneumonia/ a-fib still with some sob and wheezing. mildly tachycardic. has mild tremors of the hands. no fever. d/w the RN and no other acute issues over night. Objective Vitals Vital Signs Date Time Temp Pulse Resp B/P Pulse Ox O2 Delivery O2 Flow Rate FiO2 07/01/16 08:42 92 Nasal Cannula 4.00 07/01/16 08:19 94 Nasal Cannula 2.00 07/01/16 08:00 88 07/01/16 08:00 98.0 98 16 122/82 94 07/01/16 07:00 91 07/01/16 05:00 88 07/01/16 04:00 87 07/01/16 03:00 98.2 98 16 117/80 93 07/01/16 03:00 98 07/01/16 02:00 84 07/01/16 01:00 92 07/01/16 00:00 86 06/30/16 23:00 98.4 93 14 130/90 94 06/30/16 23:00 93 06/30/16 22:00 94 06/30/16 21:00 98 06/30/16 20:40 92 Nasal Cannula 3.00 06/30/16 20:00 90 06/30/16 19:00 97 06/30/16 19:00 98.2 97 16 122/90 92 06/30/16 18:01 94 06/30/16 17:01 91 06/30/16 16:00 100 06/30/16 15:30 98.0 93 22 113/86 93 06/30/16 15:00 92 06/30/16 14:00 94 06/30/16 13:00 92 06/30/16 12:01 138 06/30/16 11:45 98.7 108 20 126/92 94 06/30/16 11:44 96 Nasal Cannula 2.00 06/30/16 11:00 88 06/30/16 10:00 94 I/O 06/30/16 06/30/16 06/30/16 07/01/16 07/01/16 07/01/16 07:00 15:00 23:00 07:00 15:00 23:00 Intake Total 241 ml 2641 ml 1946 ml Output Total 2250 ml 500 ml 520 ml Balance -2009 ml 2141 ml 1426 ml Intake Oral 1050 ml 720 ml IV Total 241 ml 1591 ml 1226 ml Output Urine Total 2250 ml 500 ml 520 ml # Voids 1 2 # Bowel Movements 0 0 Result Diagram: 07/01/16 0552 07/01/16 0552 Imaging Last Impressions Chest X-Ray 06/29/16 7234 Signed Impressions: Service Date/Time: Wednesday, June 29, 2016 23:49 - CONCLUSION: 1. Right lower lung consolidation and small right pleural effusion. 2. Moderate cardiac silhouette enlargement. Gaudencio Marcum MD Objective Remarks GENERAL: still with some sob and wheezing CARDIOVASCULAR: mildly tachycardic with irregular rhythm without murmurs, gallops, or rubs. RESPIRATORY: Clear to auscultation. Breath sounds equal bilaterally. No wheezes , rales, or rhonchi. GASTROINTESTINAL: Abdomen soft, non-tender, distended. Normal, active bowel sounds MUSCULOSKELETAL: Extremities with bilateral pedal edema. NEURO: Alert & Oriented x4 to person, place, time, situation. Moves all ext x4 Procedures none Medications and IVs Current Medications Aspirin (Aspirin) 325 mg ONCE ONCE PO Last administered on 06/29/16 23:58; Start 06/29/16 at 23:45; Stop 06/29/16 at 23:46; Status DC IV Flush (NS Flush) 2 ml UNSCH PRN IVF FLUSH AFTER USING IV ACCESS; Start 06/29 at 23:45 Nitroglycerin (Nitrostat Sl) 0.4 mg Q5M SL Last administered on 06/29/16 00:05 ; Start 06/29/16 at 23:45; Stop 06/29/16 at 23:56; Status DC Albuterol/ Ipratropium 1 ampule 1 ampule Q15M INH Last administered on 00:09; Start 06/29/16 at 23:45; Stop 06/30/16 at 00:16; Status DC Diltiazem HCl/ Sodium Chloride (Cardizem Inj/NS Inj) 125 ml @ 0 mls/hr TITRATE IV Last administered on 06/30/16 19:33; Start 06/29/16 at 23:45 Diltiazem HCl 23 mg 23 mg BOLUS ONCE IV PUSH ; Start 06/29/16 at 23:45; Stop at 23:46; Status DC Ceftriaxone Sodium 1000 mg/ Sodium Chloride 100 ml @ 200 mls/hr ONCE ONCE IV Last administered on 06/30/16 01:20; Start 06/30/16 at 01:00; Stop 06/30/16 at 01:29; Status DC Azithromycin/ Sodium Chloride (Zithromax Inj/ NS 250 ml Inj) 250 ml @ 250 mls/ hr ONCE ONCE IV Last administered on 06/30/16 04:13; Start 06/30/16 at 01:00 ; Stop 06/30/16 at 01:59; Status DC Aspirin (Aspirin) 325 mg ONCE ONCE PO ; Start 06/30/16 at 01:00; Stop 06/30/16 at 01:01; Status DC Nitroglycerin (Nitroglycerin 2% Oint) 1 inch ONCE ONCE TOP Last administered on 06/30/16 01:20; Start 06/30/16 at 01:00; Stop 06/30/16 at 01:01; Status DC Enoxaparin Sodium (Lovenox Inj) 90 mg ONCE ONCE SQ Last administered on 01:20; Start 06/30/16 at 01:00; Stop 06/30/16 at 01:01; Status DC Furosemide 40 mg 40 mg ONCE ONCE IV PUSH Last administered on 06/30/16 01:20 ; Start 06/30/16 at 01:00; Stop 06/30/16 at 01:01; Status DC Calcium Gluconate 1 gm/Dextrose 110 ml @ 110 mls/hr ONCE ONCE IV Last administered on 06/30/16 02:12; Start 06/30/16 at 01:00; Stop 06/30/16 at 01:59 ; Status DC Magnesium Sulfate/ Dextrose 100 ml @ 100 mls/hr Q1H IV Last administered on 02:12; Start 06/30/16 at 01:00; Stop 06/30/16 at 02:59; Status DC Sodium Chloride (NS 1000 ml Inj) 1,000 ml @ 100 mls/hr Q10H IV Last administered on 07/01/16 02:05; Start 06/30/16 at 01:09 Acetaminophen (Tylenol) 650 mg Q4H PRN PO TEMP > 100.4; Start 06/30/16 at 01:15 Ondansetron HCl (Zofran Inj) 4 mg Q6H PRN IVP NAUSEA OR VOMITING Last administered on 06/30/16 17:26; Start 06/30/16 at 01:15 Magnesium Hydroxide (Milk Of Magnesia Liq) 30 ml Q12H PRN PO CONSTIPATION; Start 06/30/16 at 01:15 Enoxaparin Sodium (Lovenox Inj) 90 mg Q12H SQ Last administered on 07/01/16 01 :21; Start 06/30/16 at 13:00 Naloxone HCl 0.4 mg 0.4 mg UNSCH PRN IV SEE LABEL COMMENTS; Start 06/30/16 at 01:15 Ceftriaxone Sodium 1000 mg/ Sodium Chloride 100 ml @ 200 mls/hr Q24H IV Last administered on 07/01/16 01:21; Start 07/01/16 at 01:00 Azithromycin/ Sodium Chloride (Zithromax Inj/ NS 250 ml Inj) 250 ml @ 250 mls/ hr Q24H IV Last administered on 07/01/16 02:05; Start 07/01/16 at 01:00 Methylprednisolone Sodium Succinate (SoluMEDROL INJ) 40 mg Q8HR IV PUSH Last administered on 07/01/16 05:39; Start 06/30/16 at 08:15 Potassium Chloride (KCl) 40 meq ONCE ONCE PO Last administered on 06/30/16 09 :05; Start 06/30/16 at 08:30; Stop 06/30/16 at 08:33; Status DC Potassium Chloride (KCl) 20 meq ONCE ONCE PO Last administered on 06/30/16 11 :56; Start 06/30/16 at 12:00; Stop 06/30/16 at 12:01; Status DC Thiamine HCl (Vitamin B1) 100 mg DAILY PO Last administered on 06/30/16 09:05 ; Start 06/30/16 at 09:00 Multivitamins (Theragran) 1 tab DAILY PO Last administered on 06/30/16 09:05; Start 06/30/16 at 09:00 Lorazepam (Ativan Inj) 1 mg Q4H PRN IV PUSH ANXIETY Last administered on 17:26; Start 06/30/16 at 08:30 Albuterol/ Ipratropium (Duoneb Neb) 1 ampule Q6HR NEB NEB Last administered on 07/01/16 08:42; Start 06/30/16 at 10:00; Stop 07/01/16 at 09:00; Status DC Albuterol Sulfate (Albuterol Neb) 1.25 mg Q2HR NEB PRN NEB SHORTNESS OF BREATH Last administered on 07/01/16 01:35; Start 06/30/16 at 08:30 Diltiazem HCl 120 mg 120 mg DAILY PO Last administered on 06/30/16 11:55; Start 06/30/16 at 10:15; Stop 07/01/16 at 07:35; Status DC Calcium Gluconate/ Dextrose (Calcium Gluconate Inj/D5W 100 ml Inj) 110 ml @ 110 mls/hr ONCE ONCE IV Last administered on 06/30/16 17:25; Start 06/30/16 at 18:00; Stop 06/30/16 at 18:59; Status DC Magnesium Oxide (Mag-Ox) 400 mg Q12HR PO Last administered on 06/30/16 21:08; Start 06/30/16 at 16:30 Flumazenil (Romazicon Inj) 0.2 mg Q1M PRN IV PUSH SEE LABEL COMMENTS; Start at 21:45 Lorazepam (Ativan) 1 mg Q4H PRN PO CIWA 8 - 10 Last administered on 07/01/16 03:42; Start 06/30/16 at 21:45 Lorazepam (Ativan Inj) 1 mg Q4H PRN IV PUSH CIWA 8 - 10; Start 06/30/16 at 21: 45 Lorazepam (Ativan) 2 mg Q2H PRN PO CIWA 11-14; Start 06/30/16 at 21:45 Lorazepam (Ativan Inj) 2 mg Q2H PRN IV PUSH CIWA 11-14 Last administered on 21:51; Start 06/30/16 at 21:45 Lorazepam (Ativan Inj) 2 mg Q1H PRN IV PUSH CIWA 15-20; Start 06/30/16 at 21:45 Lorazepam (Ativan Inj) 2 mg Q15M PRN IV PUSH CIWA > 20; Start 06/30/16 at 21:45 Metoprolol Tartrate (Lopressor) 50 mg Q8H PO ; Start 07/01/16 at 08:00 Furosemide (Lasix) 40 mg BID@09,18 PO ; Start 07/01/16 at 09:00 Potassium Chloride (KCl) 20 meq Q12HR PO ; Start 07/01/16 at 09:00 Lisinopril (Prinivil) 2.5 mg DAILY PO ; Start 07/01/16 at 09:00 Miscellaneous (Pill Splitter) 1 ea UNSCH PRN OTHER SEE LABEL COMMENTS; Start at 08:45 A/P Assessment and Plan A/P - COPD exacerbation/ RLL pneumonia continue with IV antibiotics- continue IV steroids and neb treatment- keep on oxygen to keep O2 sat > 90%- follow the cultures consult pulmonary- counselled on smoking cessation. -atrial fibrillation with rapid ventricular response started on metoprolol- started on Lovenox- cardiology following. -cardiomyopathy with EF 25% started on diuretic and lisinopril- cardiology following. -elevated troponin- on lovenox - cardiology following. -abdominal distention- check abd US for ascites -alcohol abuse; started thiamine and multivitamin/ ativan as needed- watch for withdrawal counselled on drinking cessation -hypokalemia/ hypocalcemia/ hypomagnesemia; improved- will monitor as needed. -thrombocytopenia; chronic due to alcohol- will monitor -DVT prophylaxis; on Lovenox- will monitor CBC closely due to thrombocytopenia Sam Malik MD Jul 01, 2016 09:24
[2016-07-01] MEDS: THIAMINE HCL 100 MG TAB PO SCH (09:33)
[2016-07-01] MEDS: MAGNESIUM OXIDE 400 MG TAB PO SCH ×2 (09:33→21:58)
[2016-07-01] MEDS: POTASSIUM CHLORIDE 20 MEQ CONTROLLED RELEASE TAB PO SCH ×2 (09:33→21:58)
[2016-07-01] MEDS: FUROSEMIDE 40 MG TAB PO SCH ×2 (09:34→18:00)
--- NOTE | 2016-07-01 10:16 | RADRPT ---
EXAM DATE/TIME: 07/01/2016 09:33 [facility] COMPARISON: No previous studies available for comparison. INDICATIONS : Ascites. MEDICAL HISTORY : Chronic obstructive pulmonary disease. Diverticulitis. Seizures. Head trauma. Dizziness. Dyspnea. S ubstance use. Arthritis. A-Fib. SURGICAL HISTORY : Eye surgery. Colostomy. ENCOUNTER: Initial ACUITY: 1 day PAIN SCORE: 0/10 LOCATION: Bilateral abdomen. AREA EVALUATED: Abdominal quadrants. FINDINGS: Imaging of the abdomen and pelvis was performed to evaluate for ascites for possible paracentesis. T here is mild ascites seen around the liver and spleen. There is a small right pleural effusion. The l iver appears echogenic. CONCLUSION: Small amount of ascites seen around the liver and spleen. This is not large enough to drain. Madhav Guy MD on July 01, 2016 at 10:06 Board Certified Radiologist. This report was verified electronically.
--- NOTE | 2016-07-01 13:33 | HHI.PR ---
Addendum To [facility] Progress Not Reason for addendum: Additonal documentation (notified by [facility] that the patient coded. came back to see the patient immediately. at the time of my arrival the patient was intubated with center director at the bedside.patient is for transfer to ICU.) Sam Malik MD Jul 01, 2016 13:33
[2016-07-01] MEDS ORDERED: EPINEPHrine HCL (1:1000) 1 MG/ML VIAL ONE ×2 (13:44→13:48)
--- NOTE | 2016-07-01 14:14 | RADRPT ---
EXAM DATE/TIME: 07/01/2016 13:38 [facility] COMPARISON: CHEST SINGLE AP, June 29, 2016, 23:49. INDICATIONS : Status post code blue. MEDICAL HISTORY : None. SURGICAL HISTORY : None. ENCOUNTER: Initial ACUITY: 3 days PAIN SCORE: Non-responsive. LOCATION: chest FINDINGS: ET tube is 5 cm from the koffi. The cardiac silhouette is enlarged. The lungs are show diffuse inter stitial and alveolar consolidation being worse in the upper lungs and at the right base. The silhouet te the right hemidiaphragm. CONCLUSION: Cardiomegaly with diffuse increased parenchymal markings likely representing edema. Some degree of ri ght effusion needs to be considered. Madhav Guy MD on July 01, 2016 at 14:08 Board Certified Radiologist. This report was verified electronically.
[2016-07-01 14:29] LABS: BLOOD GAS BASE EXCESS -11.1 mmol/L (-2-2); BLOOD GAS CARBOXYHEMOGLOBIN 1.7 % (0-4); BLOOD GAS HCO3 15 mmol/L (22-26); BLOOD GAS METHEMOGLOBIN 0.9 % (0-2); BLOOD GAS O2 HGB SATURATION 91 % (90-100); BLOOD GAS OXYGEN CONTENT 17.7 Vol % (12.0-20.0); BLOOD GAS PCO2 36 mmHg (38-42); BLOOD GAS PO2 92 mmHg (61-120); BLOOD GAS TOTAL HGB 13.8 G/DL (12.0-16.0); TEMP CORR TO 98.6
[2016-07-01 14:30] LABS: CRITICAL VALUE YES; DRAW SITE ART LINE; FIO2 100 %; OXYGEN DEVICE VENTILATOR; STAT YES; ULNAR PULSE PRESENT; VENT SETTINGS 550/AC16/PEEP5
[2016-07-01] MEDS ORDERED: PROPOFOL 1000 MG/100 ML INJ 100 ML ONE (14:31)
[2016-07-01] MEDS ORDERED: SODIUM BICARBONATE 8.4% INJ 50 MEQ/50 ML SYR ONE (14:34)
--- NOTE | 2016-07-01 14:37 | PD.PROCEDR ---
Procedure Note Procedure REASON FOR PROCEDURE Shock PROCEDURE PERFORMED Arterial line placement R femoral CONSENT Emergency procedure DESCRIPTION OF THE PROCEDURE The patient was placed in supine, mild Trendelenburg position. The area was exposed and cleansed with ChloraPrep, times two. Sterile drape was used to cover the patient, with the site exposed, under sterile conditions including cap , face mask, sterile gown, and sterile gloves. On single attempt, the introducer needle was inserted with negative pressure in syringe and arterial flash was obtained. The guide wire was then advanced without any restriction and the needle was removed. Using Seldinger technique the femoral arterial catheter was advanced over the guide wire and sutured securely. The guide wire was removed. Good wave form.. COMPLICATIONS: No apparent complications ESTIMATED BLOOD LOSS: Less than 5 cc. Jake Corey MD Jul 01, 2016 14:37
[2016-07-01] MEDS ORDERED: SODIUM CHLOR 0.9% 1000 ML INJ 1,000 ML IV SCH (14:38)
[2016-07-01] MEDS ORDERED: MAGNESIUM OXIDE 400 MG TAB PO PRN (14:45)
[2016-07-01] MEDS ORDERED: DEXTROSE 50% IN WATER 50 ML VIAL(D50) IV PUSH PRN (14:45)
[2016-07-01] MEDS ORDERED: SENNOSIDES 8.6 MG TAB PO PRN (14:45)
[2016-07-01] MEDS ORDERED: MAGNESIUM SULFATE INJ 4 GM in SODIUM CHLORIDE 0.9% INJ 92 ML IV PRN (14:45)
[2016-07-01] MEDS ORDERED: GLUCAGON 1 MG/ML VIAL OTHER PRN (14:45)
[2016-07-01] MEDS: DOCUSATE SODIUM 100 MG CAP PO SCH (14:45)
[2016-07-01] MEDS ORDERED: ONDANSETRON HCL 4 MG/2 ML VIAL IV PRN (14:45)
[2016-07-01] MEDS ORDERED: SODIUM PHOSPHATE INJ 30 MMOL in SODIUM CHLOR 0.9% 250 ML INJ 240 ML IV PRN (14:45)
[2016-07-01] MEDS ORDERED: SODIUM CHLORIDE 0.9% FLUSH 5 ML FLUSH IV FLUSH PRN (14:45)
[2016-07-01] MEDS ORDERED: MISCELLANEOUS NURSING INFORMATION XX SCH (14:45)
[2016-07-01] MEDS ORDERED: RESP: ALBUTEROL 2.5 MG/IPRATROPIUM 0.5 MG NEB (PRN) INH (14:45)
[2016-07-01] MEDS ORDERED: POTASSIUM PHOSPHATE INJ 30 MMOL in SODIUM CHLOR 0.9% 250 ML INJ 250 ML IV PRN (14:45)
[2016-07-01] MEDS ORDERED: POTASSIUM PHOSPHATE MONOBASIC 500 MG TAB PO PRN (14:45)
[2016-07-01] MEDS ORDERED: POTASSIUM CHLOR 40 MEQ PREMIX 100 ML IV PRN (14:45)
--- NOTE | 2016-07-01 14:59 | RADRPT ---
EXAM DATE/TIME: 07/01/2016 14:33 [facility] COMPARISON: CHEST SINGLE AP, July 01, 2016, 13:38. INDICATIONS : Central line placement. MEDICAL HISTORY : None. SURGICAL HISTORY : None. ENCOUNTER: Subsequent ACUITY: 1 day PAIN SCORE: Non-responsive. LOCATION: Bilateral chest FINDINGS: The heart size is enlarged. There is an ET tube in place with the tip 6 cm from the koffi. There is a right internal jugular central line place with the tip overlying the upper SVC. A pneumothorax is n ot seen. There is diffuse mixed interstitial and alveolar consolidation seen. There is silhouetting o f the right hemidiaphragm. CONCLUSION: Cardiomegaly with diffuse consolidation likely representing edema. Right internal jugular central line with the tip overlying the upper SVC region. Madhav Guy MD on July 01, 2016 at 14:56 Board Certified Radiologist. This report was verified electronically.
[2016-07-01] MEDS: RESP: ALBUTEROL 2.5 MG/IPRATROPIUM 0.5 MG NEB (SCH) INH ×2 (15:14→20:08)
--- NOTE | 2016-07-01 15:47 | PD.PROCEDR ---
Procedure Note Procedure Endotracheal Intubation Diagnosis: Cardiac arrest Indications: Same Consent: Not obtained Anesthesia: Not applicable Description of the Procedure: The patient was positioned in the sniffing position, on floor. Pre-oxygenation was performed using a 100% O2 [id number]. A glidscope #4 was used for laryngoscopy and a Grade 1 view was obtained. A 8.0 cuffed endotracheal tube was inserted atraumatically through the vocal cords. Confirmation of correct endotracheal tube placement was made by equal and bilateral breath sounds and colorimetric CO2 detection. The endotracheal tube was secured at 23 cm at the teeth. There were no immediate complications noted. The patient remained hemodynamically stable throughout the procedure. A chest x-ray has been ordered. I personally performed the procedure. Joi Silverio MD Jul 01, 2016 15:47
--- NOTE | 2016-07-01 15:49 | PD.PROCEDR ---
Procedure Note Procedure Diagnosis: Cardiac arrest Indications: Same Consent: None obtained Anesthesia: Not applicable Description of the Procedure: The patient was placed in the supine, mild- Trendelenburg position. The area was prepped and draped sterilely. A 19g needle was inserted under negative pressure aspiration and dark venous blood was obtained. A guidewire was inserted easily without resistance. A small incision was made using a #11 blade. Using a modified Seldinger technique, the dilator and 20 Azeri catheter were advanced over the guidewire without resistance. All ports were aspirated and flushed, and had brisk blood return. The line was secured at 18cm at the skin using 2-0 silk interrupted sutures. A Biopatch and Transparent sterile dressing were applied. There were no immediate complications noted. There was minimal EBL. The patient tolerated the procedure well. Right IJ Ultrasound Guidance: Ultrasound guidance was used to identify the [ ]. The vascular anatomy was normal. The vessel was cannulated under direct, real-time ultrasound visualization. After placement of the guidewire, confirmation of the guidewire in the lumen of the vessel was made using ultrasound visualization, before dilation of the tract. A Chest x-ray has been ordered. I personally performed the procedure. Joi Silverio MD Jul 01, 2016 15:49
[2016-07-01] MEDS: INSULIN NovoLIN REGULAR SUPPLEMENTAL SCALE SQ SCH ×2 (16:00→21:00)
--- NOTE | 2016-07-01 16:01 | HHI.CCPN ---
Subjective Remarks CPR Note I was called for a CODE BLUE and I arrived at 1321. CPR had been initiated at 1318. Per report the patient had been in A. fib controlled rate in the 90s, the patient subsequently heart rate diminished to the 40s, when necessary upon entering room, patient supine on the floor IVs traumatically removed. Monitors and pads were placed on the patient. The patient was found to be initially sinus bradycardia atropine was given at 1320. Upon my arrival the patient was in PEA arrest. The patient had been hypokalemic and potassium was being replaced, mag level was noted to be 1.3 mg/dl, 2 g magnesium given. The patient received 2 rounds of epinephrine please see CPR sheet with return of spontaneous circulation at 1327 initial blood pressure 192/135. Patient was continuously bagged with 100% O2 by anesthesia staff (VALVE MECHANIC) present at the [facility]. The patient was then intubated with the glide scope #[id number] endotracheal tube 23 cm at the lip was placed. With confirmation and tidal CO2 and bilateral breath sounds.. The patient continued to have a systolic blood pressure in the 120s. The patient was then lifted onto the bed, and then transported to CVICU at 1342. Case discussed with Dr. Wright. Upon arrival to CVICU, noted nitroglycerin paste was removed from patient's chest ,a central line was placed, a right femoral arterial line was placed. Vasoactive medications were initiated epinephrine currently at 5 mcgs. Laboratory specimens were obtained results pending. ABG was obtained, 7.23/36/ 92/14/-11, on FiO2 100%. 2 amps of sodium bicarbonate were given. EKG pending. Family mother Karley Valdez, [phone] was contacted by theologian. Objective - Vital Signs Date Time Temp Pulse Resp B/P Pulse Ox O2 Delivery O2 Flow Rate FiO2 07/01/16 15:09 70 70 07/01/16 13:40 88 07/01/16 13:40 97.5 14 126/64 07/01/16 08:42 Nasal Cannula 4.00 Intake and Output 06/30/16 06/30/16 07/01/16 08:00 16:00 00:00 Intake Total 241 ml 2641 ml Output Total 2250 ml 500 ml Balance -2009 ml 2141 ml Result Diagram: 07/01/16 0552 07/01/16 0552 A/P Assessment and Plan PEA arrest ROSC S/P 2 rounds of CPR Pupils 4 mm and fixed, obtain EEG, CT brain in a.m. Neurochecks per ICU protocol Continue epinephrine infusion, maintain MAP > 65 mmHg F/U ABGs, wean FiO2 as tolerated. Replete electrolytes as clinically indicated Physician Joi Nichols MD Jul 01, 2016 16:01
--- NOTE | 2016-07-01 16:41 | HHI.HP ---
HPI Service Critical Care Medicine Primary Care Physician No Primary Care Physician Admission Diagnosis AFib w RVR, CHF, R Lung PNA, HypoMg, HypoCa, CP, NSTEMI, Dyspnea Diagnosis: (1) Atrial fibrillation with RVR Diagnosis: Principal (2) PNA (pneumonia) Diagnosis: Principal (3) COPD exacerbation Diagnosis: Principal (4) Elevated troponin Diagnosis: Principal Travel History International Travel<30 Days: No Contact w/Intl Traveler <30 Da: No Traveled to Known Affected Are: No History of Present Illness The patient is a 45 y/o male with history of COPD and atrial fibrillation who presented to ED, on 06/30/2016 with three week history of sob and cough, described as productive with yellowish sputum. He also presented with complaints of left-sided chest pain with radiation to the right side. he's also complaining of some left sided chest pain. The patient states he was diagnosed with A. fib, and COPD years ago but was noncompliant and did not take any medications secondary to finances. The patient also reported drinking approximately 4 beers a day and is chronic smoker. Since his admission with diagnosis of,NSTEMI, A. fib RVR, cardiology was consulted with management. Patient was also noted to have a right lower lobe pneumonia and was placed on azithromycin and Rocephin, as well as COPD exacerbation with nebulizer treatments and steroids. Patient had recently underwent a echocardiogram yesterday which revealed an ejection fraction of 25-30% with systolic function severely decreased. This afternoon, the patient on telemetry was noted to go from a heart rate of 90s to a heart rate subsequently in the 40s. Upon the RN entering the room, she was noted that the patient was unconscious lying supine on the floor with the IVs traumatically removed, from a fall. Initially the patient was in a sinus bradycardia and atropine 1 dose was given. The patient immediately went into PEA arrest, and subsequently underwent 2 rounds of CPR with 2 doses of epinephrine, and ROSC. The patient had been noted to be hypokalemic and was receiving potassium repletion prior to the incident. During the code of note magnesium level was 1.3 and the patient received 2 g of magnesium. The patient was then transferred to CVICU, placed on epinephrine infusion. The patient's mother was notified of events and requests aggressive treatment measures continue to be instituted. Dr. Wright was notified of the events. Critical care medicine is consulted for management and treatment. Past Family Social History Allergies: Coded Allergies: No Known Allergies (Unverified , 06/29/16) Physical Exam Vital Signs Vital Signs Date Time Temp Pulse Resp B/P Pulse Ox O2 Delivery O2 Flow Rate FiO2 07/01/16 15:09 70 70 07/01/16 14:30 99 100 07/01/16 13:40 88 07/01/16 13:40 97.5 96 14 126/64 94 07/01/16 12:00 84 07/01/16 11:30 98.0 98 16 119/73 94 07/01/16 11:00 109 07/01/16 09:00 91 07/01/16 08:42 92 Nasal Cannula 4.00 07/01/16 08:19 94 Nasal Cannula 2.00 07/01/16 08:00 88 07/01/16 08:00 98.0 98 16 122/82 94 07/01/16 07:00 91 07/01/16 05:00 88 07/01/16 04:00 87 07/01/16 03:00 98.2 98 16 117/80 93 07/01/16 03:00 98 07/01/16 02:00 84 07/01/16 01:00 92 07/01/16 00:00 86 06/30/16 23:00 98.4 93 14 130/90 94 06/30/16 23:00 93 06/30/16 22:00 94 06/30/16 21:00 98 06/30/16 20:40 92 Nasal Cannula 3.00 06/30/16 20:00 90 06/30/16 19:00 97 06/30/16 19:00 98.2 97 16 122/90 92 06/30/16 18:01 94 06/30/16 17:01 91 Physical Exam GENERAL: Morbidly obese male nonresponsive SKIN: Cool and dry HEAD: Atraumatic. Normocephalic. EYES: Pupils equal and round, currently 4 mm and fixed. No scleral icterus. No injection or drainage. ENT: No nasal bleeding or discharge. Mucous membranes pink and moist. NECK: Trachea midline. No JVD. Orotracheally intubated CARDIOVASCULAR: Sinus tachycardia, regular rhythm. RESPIRATORY: Mechanical ventilation, noted previously agonal respirations .Clear to auscultation. Breath sounds equal bilaterally. GASTROINTESTINAL: Abdomen soft, non-tender, nondistended. No guarding. MUSCULOSKELETAL: Extremities without clubbing, cyanosis, or edema. No obvious deformities. NEUROLOGICAL: Nonresponsive, RASS -4. Laboratory Laboratory Tests Test 07/01/16 07/01/16 05:52 14:23 White Blood Count 8.5 Red Blood Count 3.95 Hemoglobin 13.6 Hematocrit 39.3 Mean Corpuscular Volume 99.3 Mean Corpuscular Hemoglobin 34.3 Mean Corpuscular Hemoglobin 34.5 Concent Red Cell Distribution Width 14.5 Platelet Count 87 Mean Platelet Volume 9.2 Neutrophils (%) (Auto) 89.3 Lymphocytes (%) (Auto) 2.9 Monocytes (%) (Auto) 7.5 Eosinophils (%) (Auto) 0.0 Basophils (%) (Auto) 0.3 Neutrophils # (Auto) 7.6 Lymphocytes # (Auto) 0.2 Monocytes # (Auto) 0.6 Eosinophils # (Auto) 0.0 Basophils # (Auto) 0.0 CBC Comment AUTO DIFF Differential Comment AUTO DIFF CONFIRMED Sodium Level 130 Potassium Level 3.8 Chloride Level 95 Carbon Dioxide Level 20.4 Anion Gap 15 Blood Urea Nitrogen 13 Creatinine 0.92 Estimat Glomerular Filtration 89 Rate Random Glucose 206 Calcium Level 7.7 Magnesium Level 1.3 Blood Gas Puncture Site ART LINE Blood Gas Patient Temperature 98.6 Blood Gas HCO3 15 Blood Gas Base Excess -11.1 Blood Gas Oxygen Saturation 91 Arterial Blood pH 7.24 Arterial Blood Partial 36 Pressure CO2 Arterial Blood Partial 92 Pressure O2 Arterial Blood Oxygen Content 17.7 Arterial Blood 1.7 Carboxyhemoglobin Arterial Blood Methemoglobin 0.9 Blood Gas Hemoglobin 13.8 Oxygen Delivery Device VENTILATOR Blood Gas Ventilator Setting 550/AC16/PEEP5 Blood Gas Inspired Oxygen 100 Date/Time Procedure Status Source Growth 06/30/16 01:20 Aerobic Blood Culture - Preliminary Resulted Blood Peripheral NO GROWTH IN 1 DAY 06/30/16 01:20 Anaerobic Blood Culture - Preliminary Resulted Blood Peripheral NO GROWTH IN 1 DAY Result Diagram: 07/01/16 0552 07/01/16 0552 Imaging Last Impressions Chest X-Ray 07/01/16 0000 Signed Impressions: Service Date/Time: Friday, July 01, 2016 14:33 - CONCLUSION: Cardiomegaly with diffuse consolidation likely representing edema. Right internal jugular central line with the tip overlying the upper SVC region. Madhav Guy MD Abdomen Ultrasound 07/01/16 0000 Signed Impressions: Service Date/Time: Friday, July 01, 2016 09:33 - CONCLUSION: Small amount of ascites seen around the liver and spleen. This is not large enough to drain. Madhav Guy MD Septic Shock Reassessment Heart: Irregular Lungs: Clear, Diminished Peripheral Pulses: Weak Right Radial Weak Left Radial Assessment and Plan Assessment and Plan This is an unfortunate 45-year-old gentleman, that was found unresponsive on the floor in the hospital room, for unknown period of time.CPR initiated with ROSC, but unknown timing of respiratory arrest/hypoxia. Currently the patient' s had agonal respirations, pupils are 4 mm and fixed post ROSC. The patient's prognosis is guarded at this time. Neurologic: Possible anoxic encephalopathy secondary to cardiac arrest Alcohol dependency History of seizure disorder Neurochecks per ICU protocol GCS 3T-unresponsive on no sedation Begin propofol infusion and low-dose for ventilator synchrony Obtain EEG Obtain CT scan Monitor for signs of alcohol withdrawal Continue thiamine and multivitamin Respiratory: S/P Hypoxic respiratory arrest COPD exacerbation Right lower lobe pneumonia Pulmonary edema Tobacco abuse ABG S/P arrest-7.23/36/92/14/-11, give 2 amps NaHCo3, repeat ABG in one hour Mechanical ventilation settings-16/600/.70/5, will increase PEEP Follow-up chest x-ray Continue azithromycin, Rocephin (day 2) Bronchodilators every 6 hours schedule every 2 hours when necessary Ventilator bundle Maintain head of bed 30 Cardiovascular: Cardiomyopathy NSTEMI A. fib RVR PEA arrest Systolic congestive heart failure Echo 06/30-ejection fraction 2530%, aortic valve mild regurgitation, mitral valve mild to moderate regurgitation, systolic function severely diminished, tricuspid valve trace to mild regurgitation Wean epinephrine infusion as tolerated, maintain MAP > 65 mmHg Discontinue Cardizem, lisinopril Hold metoprolol for now Cardiology on boardDr. Wright follow-up recommendations Renal: Insert Sauer -- Strict I/Os FEN/GI: Monitor BMP Replete electrolytes per ICU protocol Heme/ID: Community-acquired Pneumonia, right lower lobe Thrombocytopenia Obtain sputum culture Continue azithromycin and Rocephin Monitor CBC Endocrine: Hyperglycemia of critical illness Glucose monitoring per ICU protocol, low-dose regimen -- SSI Prophylaxis: GI Prophylaxis Pepcid twice a day DVT Prophylaxis -- SCDs Patient on therapeutic Lovenox at 90 mg twice a day Lines: Peripheral IVs 2. Right femoral arterial line, central line right IJ Dispo: This patient remains critically ill with one or more organ systems which are or may become a threat to life. I have spent in excess of 60 minutes discontinuously in the care and management of this patient. This time is exclusive of procedures, and includes, but is not limited to, evaluation of the patient, review of the medical record, discussions with family, consultants, nursing staff, or respiratory therapy, and documentation in the medical record. Code Status Full Discussed Condition With Dr. Wright , ICU CLERK at bedside, Mrs. Karley Valdez(patient's mother) [phone] at length my concern for hypoxic encephalopathy, patient's cardiac condition, well his respiratory condition, and very guarded prognosis. At this point this Maslow like us to continue aggressive treatment, and provide follow-up regarding the patient's neurological status. All questions were answered. Problem Qualifiers (1) PNA (pneumonia): Qualified Code: J18.1 - Pneumonia of right lower lobe due to infectious organism Joi Silverio MD Jul 01, 2016 16:41
[2016-07-01 16:43] LABS: BLOOD GAS BASE EXCESS -6.6 mmol/L (-2-2); BLOOD GAS CARBOXYHEMOGLOBIN 2.2 % (0-4); BLOOD GAS HCO3 17 mmol/L (22-26); BLOOD GAS METHEMOGLOBIN 0.9 % (0-2); BLOOD GAS O2 HGB SATURATION 91 % (90-100); BLOOD GAS OXYGEN CONTENT 14.7 Vol % (12.0-20.0); BLOOD GAS PCO2 26 mmHg (38-42); BLOOD GAS PO2 73 mmHg (61-120); BLOOD GAS TOTAL HGB 11.5 G/DL (12.0-16.0); CRITICAL VALUE NO; OXYGEN DEVICE VENTILATOR; TEMP CORR TO 98.6
[2016-07-01 16:44] LABS: DRAW SITE ART LINE; FIO2 70 %; STAT NO; ULNAR PULSE PRESENT; VENT SETTINGS 600/AC16/PEEP5
[2016-07-01] MEDS ORDERED: DOBUTamine PREMIX DRIP 250 ML ONE ×2 (16:59→20:57)
[2016-07-01] MEDS ORDERED: SODIUM BICARBONATE 8.4% INJ 50 ML ONE (17:15)
[2016-07-01 17:21] LABS: AUTOMATED NEUTROPHIL # 14.2 TH/MM3 (1.8-7.7); BASOPHIL # 0.1 TH/MM3 (0-0.2); BASOPHIL % 0.4 % (0.0-2.0); EOSINOPHIL % 0.2 % (0.0-4.0); HEMATOCRIT 41.8 % (39.0-51.0); LYMPH % 4.2 % (9.0-44.0); LYMPHOCYTE # 0.7 TH/MM3 (1.0-4.8); MEAN CELL VOLUME 102.6 FL (80.0-100.0); MEAN CORPUSCULAR HEMOGLOBIN 33.3 PG (27.0-34.0); MEAN CORPUSCULAR HGB CONC 32.5 % (32.0-36.0); NEUT % 85.2 % (16.0-70.0); PLATELET COUNT 100 TH/MM3 (150-450); RED BLOOD COUNT 4.08 MIL/MM3 (4.50-5.90); RED CELL DISTRIBUTION WIDTH 15.1 % (11.6-17.2); WHITE BLOOD COUNT 16.7 TH/MM3 (4.0-11.0)
[2016-07-01 17:29] LABS: BICARBONATE 20.7 MEQ/L (21.0-32.0); MAGNESIUM 3.5 MG/DL (1.5-2.5); POTASSIUM 4.7 MEQ/L (3.5-5.1)
[2016-07-01 17:31] LABS: TOTAL BILIRUBIN ADULT 3.4 MG/DL (0.2-1.0)
[2016-07-01 17:40] LABS: HEMO FLAGS AUTO DIFF
[2016-07-01 17:44] LABS: CALCIUM-PROTEIN CORRECTED 7.1 MG/DL (8.5-10.1)
[2016-07-01] MEDS: ARTIFICIAL TEARS OPTH SOLN 15 ML BTL EACH EYE SCH (18:00)
[2016-07-01 18:08] LABS: APTT (PATIENT) 37.9 SEC (24.3-30.1); INTERNATIONAL NORMALIZED RATIO 1.3 RATIO; PROTHROMBIN TIME - PATIENT 14.9 SEC (9.8-11.6)
[2016-07-01 18:39] LABS: PLATELET ESTIMATE SMEAR LOW (NORMAL); PLATELET MORPHOLOGY NORMAL (NORMAL); SCAN/DIFF AUTO DIFF CONFIRMED; TARGET CELLS 1+ (NORMAL)
[2016-07-01 19:38] LABS: BLOOD GAS BASE EXCESS 0.5 mmol/L (-2-2); BLOOD GAS CARBOXYHEMOGLOBIN 2.2 % (0-4); BLOOD GAS HCO3 23 mmol/L (22-26); BLOOD GAS METHEMOGLOBIN 0.8 % (0-2); BLOOD GAS O2 HGB SATURATION 96 % (90-100); BLOOD GAS OXYGEN CONTENT 16.3 Vol % (12.0-20.0); BLOOD GAS PCO2 27 mmHg (38-42); BLOOD GAS PO2 101 mmHg (61-120); TEMP CORR TO 98.6
[2016-07-01 19:39] LABS: CRITICAL VALUE YES; FIO2 70 %; OXYGEN DEVICE VENTILATOR
[2016-07-01 19:40] LABS: DRAW SITE ART LINE; STAT NO; VENT SETTINGS AC 14/600/10PEEP
--- NOTE | 2016-07-01 19:58 | EKG ---
Date Performed: 06/30/2016 Time Performed: 22:47:42 PTAGE: 45 years EKG: Atrial fibrillation Ant/septal and lateral T wave changes are nonspecific Low QRS voltages in limb leads Abnormal ECG PREVIOUS TRACING : 06/30/2016 05.43 Compared to prior tracing no significant change DOCTOR: Elizabeth Cardenas Interpretating Date/Time 07/01/2016 19:56:11
[2016-07-01] MEDS ORDERED: NOREPINEPHRINE-DEXTROSE DRIP 250 ML IV ONE (19:59)
[2016-07-01] MEDS ORDERED: DILTIAZEM INJ 125 MG in SODIUM CHLORIDE 0.9% INJ 100 ML IV SCH (20:30)
[2016-07-01] MEDS ORDERED: ATROPINE SULFATE 1 MG/10 ML SYRINGE ONE (21:01)
--- NOTE | 2016-07-01 21:24 | RADRPT ---
EXAM DATE/TIME: 07/01/2016 21:13 [facility] COMPARISON: CT BRAIN W/O CONTRAST, March 18, 2016, 14:43. INDICATIONS : Altered mental status. Post code. RADIATION DOSE: 47.98 CTDIvol (mGy) MEDICAL HISTORY : Cardiovascular disease. Seizures. SURGICAL HISTORY : None. ENCOUNTER: Initial ACUITY: 1 day PAIN SCALE: Non-responsive LOCATION: cranial TECHNIQUE: Multiple contiguous axial images were obtained of the head. Using automated exposure control and adj ustment of the mA and/or kV according to patient size, radiation dose was kept as low as reasonably a chievable to obtain optimal diagnostic quality images. FINDINGS: CEREBRUM: The ventricles are normal for age. No evidence of midline shift, mass lesion, hemorrhage or acute in farction. No extra-axial fluid collections are seen. POSTERIOR FOSSA: The cerebellum and brainstem are intact. The 4th ventricle is midline. The cerebellopontine angle i s unremarkable. EXTRACRANIAL: The visualized portion of the orbits is intact. SKULL: The calvaria is intact. No evidence of skull fracture. CONCLUSION: No acute disease. Darian Oswald MD on July 01, 2016 at 21:22 Board Certified Radiologist. This report was verified electronically.
[2016-07-01] MEDS: CHLORHEXIDINE 0.12% (ORAL KIT) 15 ML CUP MT SCH (21:57)
[2016-07-01] MEDS: SODIUM CHLORIDE 0.9% FLUSH 5 ML FLUSH IV FLUSH SCH (21:58)
[2016-07-01] MEDS: FAMOTIDINE 20 MG/2 ML VIAL IV PUSH SCH (21:58)
[2016-07-01] MEDS: PROPOFOL 1000 MG/100 ML INJ 100 ML IV SCH (21:59)
[2016-07-01] MEDS: DOBUTamine 250 MG/D5W 250 ML PREMIX DRIP IV SCH (22:15)
[2016-07-02] VITALS (17 sets, daily range): BP systolic 98–152; BP diastolic 55–88; PULSE 79–110; RESP 14–21; TEMP 97–99.2; O2SAT 94–100
[2016-07-02] MEDS: cefTRIAXone INJ 1,000 MG in SODIUM CHLORIDE 0.9% INJ 100 ML IV SCH (01:06)
[2016-07-02] MEDS: ENOXAPARIN SODIUM 100 MG/ML SYRINGE SQ SCH ×2 (01:06→13:45)
[2016-07-02] MEDS: DOCUSATE SODIUM 100 MG CAP PO SCH ×2 (01:28→14:45)
[2016-07-02] MEDS: AZITHROMYCIN INJ 500 MG in SODIUM CHLOR 0.9% 250 ML INJ 250 ML IV SCH (01:28)
[2016-07-02] MEDS: DOBUTamine 250 MG/D5W 250 ML PREMIX DRIP IV SCH ×5 (01:42→22:13)
[2016-07-02] MEDS: NOREPINEPHRINE 4 MG/D5W 250 ML IV SCH ×2 (01:47→04:05)
[2016-07-02] MEDS ORDERED: FUROSEMIDE 100 MG/10 ML VIAL IV PUSH ONE (03:15)
[2016-07-02] MEDS ORDERED: CALCIUM CHLORIDE 10% SOLN 1 GRAM/10 ML SYR IV PUSH ONE (03:15)
[2016-07-02] MEDS: RESP: ALBUTEROL 2.5 MG/IPRATROPIUM 0.5 MG NEB (SCH) INH ×4 (03:44→20:28)
--- NOTE | 2016-07-02 04:37 | HHI.PR ---
Subjective Remarks Called to the bedside emergently at 03:11 for a CODE BLUE. Patient was progressively becoming more hypotensive and vasopressors were rising when he suddenly lost an arterial line tracing and went into PEA arrest. ACLS was immediately instituted. 2 rounds of epinephrine and approximately 3-4 minutes of CPR and ROSC was obtained. I performed emergent bedside critical care ultrasound which demonstrated severe LV systolic dysfunction and an EF of around 10-15% which appeared significantly worse than the 20-25% from 06/30. The RV again demonstrated severe dilation with severe dysfunction, which appeared unchanged from the echo on 06/30. No pericardial effusion. IVC 2.4cm dilated without respiratory variation. His CVP is 26. Based on this information, this appears to be worsening of his cardiogenic shock. I have added epinephrine at 6mcg/min and given lasix 80mg iv x 1. I have also ordered 1gm calcium chloride for his laboratory evidence of hypocalcemia. Certainly, PE could be in the differential. however, he is already on therapeutic lovenox and is too unstable to travel for CT pulmonary angiogram. Also, his RV is relatively unchanged in function from 06/30, so acute PE is much less likely. In the setting of rapidly declining LV systolic dysfunction, this repeat cardiac arrest is most likely to be secondary to worsening cardiogenic shock. Active Problems: Hypoxic Ischemic Encephalopathy Hypoxic Respiratory Failure Cardiogenic Shock Acute Biventricular Systolic Dysfunction Acute Intravascular Volume Overload Cor Pulmonale Plan: -- lasix 80mg iv x 1 -- epinephrine at 6 mcg/min -- continue dobutamine at 10mcg/kg/min -- continue norepinephrine for goal map > 65. -- may need more invasive monitoring with PA catheter if he does not clinically respond. pulse contour analysis not accurate in the setting of biventricular dysfunction and atrial fibrillation. -- continue q1h neuro checks -- continue vent settings currently. -- goal 2L negative over the next 24h. -- may require renal replacement therapy if he does not respond to forced diuresis. This patient remains critically ill with one or more organ systems which are or may become a threat to life. I have spent in excess of 52 minutes discontinuously in the care and management of this patient. This time is exclusive of procedures, and includes, but is not limited to, evaluation of the patient, review of the medical record, discussions with family, consultants, nursing staff, or respiratory therapy, and documentation in the medical record. Objective Vital Signs Date Time Temp Pulse Resp B/P Pulse Ox O2 Delivery O2 Flow Rate FiO2 07/02/16 04:10 99 100 07/02/16 01:00 98 70 07/02/16 00:00 99.0 79 15 105/77 99 98/55 07/02/16 00:00 99 Mechanical Ventilator 70 07/01/16 22:14 99 70 07/01/16 21:00 100 100 07/01/16 20:00 98 Mechanical Ventilator 70 07/01/16 20:00 99.3 103 16 84/50 98 123/80 07/01/16 19:25 99 70 07/01/16 18:10 80 07/01/16 18:07 97.4 99 14 97/52 94 07/01/16 17:00 70 07/01/16 16:50 99 70 07/01/16 15:09 70 70 07/01/16 15:00 97.8 107 30 90/80 97 07/01/16 14:30 99 100 07/01/16 14:20 100 07/01/16 13:40 88 07/01/16 13:40 97.5 96 14 126/64 94 07/01/16 12:00 84 07/01/16 11:30 98.0 98 16 119/73 94 07/01/16 11:00 109 07/01/16 09:00 91 07/01/16 08:42 92 Nasal Cannula 4.00 07/01/16 08:19 94 Nasal Cannula 2.00 07/01/16 08:00 88 07/01/16 08:00 98.0 98 16 122/82 94 07/01/16 07:00 91 07/01/16 05:00 88 I/O 07/01/16 07/01/16 07/01/16 07/02/16 07/02/16 07/02/16 07:00 15:00 23:00 07:00 15:00 23:00 Intake Total 1946 ml 500 ml Output Total 520 ml 20 ml Balance 1426 ml 480 ml Intake Oral 720 ml 0 ml IV Total 1226 ml 500 ml Output Urine Total 520 ml 20 ml # Bowel Movements 0 Result Diagram: 07/01/16 1418 07/01/16 1418 Anil Cade MD Jul 02, 2016 04:37
[2016-07-02] MEDS ORDERED: EPINEPHrine 2 MG/D5W 250 ML IV SCH ×2 (04:45)
[2016-07-02] MEDS: PROPOFOL 1000 MG/100 ML INJ 100 ML IV SCH ×5 (04:49→21:15)
[2016-07-02 05:10] LABS: AUTOMATED NEUTROPHIL # 9.1 TH/MM3 (1.8-7.7); BASOPHIL % 0.1 % (0.0-2.0); HEMATOCRIT 38.8 % (39.0-51.0); LYMPH % 4.4 % (9.0-44.0); LYMPHOCYTE # 0.4 TH/MM3 (1.0-4.8); MEAN CORPUSCULAR HEMOGLOBIN 33.8 PG (27.0-34.0); MEAN CORPUSCULAR HGB CONC 33.9 % (32.0-36.0); NEUT % 90.5 % (16.0-70.0); PLATELET COUNT 72 TH/MM3 (150-450); RED BLOOD COUNT 3.88 MIL/MM3 (4.50-5.90); RED CELL DISTRIBUTION WIDTH 14.6 % (11.6-17.2); WHITE BLOOD COUNT 10.1 TH/MM3 (4.0-11.0)
[2016-07-02 05:19] LABS: HEMO FLAGS AUTO DIFF
[2016-07-02 05:21] LABS: ALT (GPT) 44 U/L (12-78); ANION GAP 12 MEQ/L (5-15); AST (GOT) 67 U/L (15-37); BICARBONATE 25.3 MEQ/L (21.0-32.0); BLOOD UREA NITROGEN 20 MG/DL (7-18); CHLORIDE 95 MEQ/L (98-107); GLOMERULAR FILTRATION RATE 58 ML/MIN (>89); MAGNESIUM 1.9 MG/DL (1.5-2.5); POTASSIUM 3.6 MEQ/L (3.5-5.1); SODIUM (NA) 132 MEQ/L (136-145)
--- NOTE | 2016-07-02 05:26 | RADRPT ---
EXAM DATE/TIME: 07/02/2016 03:29 [facility] COMPARISON: CHEST SINGLE AP, July 01, 2016, 14:33. INDICATIONS : Shortness of breath, possible pulmonary disease. Post Code Blue. MEDICAL HISTORY : Cardiovascular disease. Seizures SURGICAL HISTORY : None. ENCOUNTER: Subsequent ACUITY: 2 days PAIN SCORE: Non-responsive. LOCATION: Bilateral chest FINDINGS: Single AP view of the chest. Endotracheal tube and right IJ central venous catheter remain in place. Nasogastric tube is now in place with the tip in the stomach. Persistent hazy opacity in the right swati ng. Decrease in left upper lung opacity. No evidence of pleural effusion or pneumothorax. Cardiomedia stinal silhouette is enlarged but unchanged. CONCLUSION: 1. No change in hazy right lung opacity. Decrease in left upper lung zone opacity. 2. Nasogastric tube now in place with tip in the stomach. Gaudencio Marcum MD on July 02, 2016 at 5:23 Board Certified Radiologist. This report was verified electronically.
[2016-07-02] MEDS: methylPREDNISolone SOD SUCC 40 MG/1 ML VIAL IV PUSH SCH ×3 (05:27→21:12)
[2016-07-02 05:29] LABS: ALKALINE PHOSPHATASE 148 U/L (45-117)
--- NOTE | 2016-07-02 06:01 | MB ---
cc: ALYSON GOODMAN DATE OF CONSULTATION 07/01/[address] Joi Silverio REASON FOR CONSULTATION Pulmonary management. History for COPD and pneumonia. HISTORY OF PRESENT ILLNESS Mr. Polk is a 45-year-old male with history of COPD and atrial fibrillation. He came to the emergency room with cough and yellow sputum production. The patient was diagnosed with non-ST DC, A-fib with rapid ventricular rate and found to have pneumonia. He had an echocardiogram done with an EF of 25-30%. His systolic function is severely decreased. The patient was found unresponsive. He was in PEA. He had CPR done, intubated and currently is in the CV-ICU. He is on Diprivan. He is also on dopamine and Levophed to support his blood pressure. Currently he is on assist control, FIO2 70%, sedated with Diprivan. PAST MEDICAL HISTORY History of hypertension. History of COPD. No other history available. CURRENT MEDICATIONS 1. Famotidine 20 mg. 2. Diltiazem IV. 3. Albuterol nebulizer treatment. 4. Electrolyte replacement. 5. Lasix 40 mg. 6. Rocephin 1 gram a day. 7. Zithromax 500 mg a day. 8. Levophed. 9. Diprivan. ALLERGIES No known drug allergies. SOCIAL HISTORY Not available. FAMILY HISTORY Not available. REVIEW OF SYSTEMS Unable to assess. PHYSICAL EXAMINATION GENERAL: A well-built, well-nourished male, on ventilator, nonresponsive. VITAL SIGNS: Blood pressure 97/52, heart rate 90, respirations 16. Temperature 97.4. HEENT EXAMINATION: Pupils are dilated with minimal reaction. He is orally intubated. NECK: Supple. JVP not raised. CHEST: Equal bilaterally. No rhonchi. CV: S1 and S2 normal. ABDOMEN: Soft, nondistended. Bowel sounds are present. EXTREMITIES: No edema. LABORATORY EVALUATION CT scan of the brain shows no acute process. Chest x-ray shows diffuse parenchymal markings with ascending edema. WBC count 16.7, hemoglobin 13.6, hematocrit 41.8, MCV 102, platelet count 100. Sodium 130, potassium 4.7, chloride 92, CO2 20, BUN 17, creatinine 1.34. Blood gas on 70% - pH 7.54, pCO2 21, pO2 101, bicarb 23. IMPRESSION 1. Respiratory failure. 2. Hypoxia. 3. Possible anoxic encephalopathy. 4. Status post cardiac arrest. 5. Severe cardiomyopathy. 6. Non-ST DC. 7. Lung infiltrate. 8. COPD. PLAN 1. He is on a ventilator. Continue present ventilator management and FIO2 of 70%, wean FIO2 as he tolerates. 2. He is on dopamine and Levophed to support his blood pressure. 3. Continue antibiotic. OVERALL PROGNOSIS Guarded Further treatment will depend on his course in the hospital. Thank you Dr. Silverio for this consult. MD SABA Waggoner/SSB /9:43 PM /5:34 AM
[2016-07-02] MEDS: INSULIN NovoLIN REGULAR SUPPLEMENTAL SCALE SQ SCH ×4 (07:00→21:00)
[2016-07-02 07:05] LABS: PLATELET ESTIMATE SMEAR LOW (NORMAL); PLATELET MORPHOLOGY ENLARGED (NORMAL)
[2016-07-02 07:06] LABS: SCAN/DIFF AUTO DIFF CONFIRMED
[2016-07-02] MEDS: CHLORHEXIDINE 0.12% (ORAL KIT) 15 ML CUP MT SCH ×2 (08:01→21:10)
--- NOTE | 2016-07-02 08:08 | HHI.CCPN ---
Subjective Remarks/Hospital Course The patient is a 45 y/o male with history of COPD and atrial fibrillation who presented to ED, on 06/30/2016 with three week history of sob and cough, described as productive with yellowish sputum. He also presented with complaints of left-sided chest pain with radiation to the right side. he's also complaining of some left sided chest pain. The patient states he was diagnosed with A. fib, and COPD years ago but was noncompliant and did not take any medications secondary to finances. The patient also reported drinking approximately 4 beers a day and is chronic smoker. Since his admission with diagnosis of,NSTEMI, A. fib RVR, cardiology was consulted with management. Patient was also noted to have a right lower lobe pneumonia and was placed on azithromycin and Rocephin, as well as COPD exacerbation with nebulizer treatments and steroids. Patient had recently underwent a echocardiogram yesterday which revealed an ejection fraction of 25-30% with systolic function severely decreased. This afternoon, the patient on telemetry was noted to go from a heart rate of 90s to a heart rate subsequently in the 40s. Upon the RN entering the room, she was noted that the patient was unconscious lying supine on the floor with the IVs traumatically removed, from a fall. Initially the patient was in a sinus bradycardia and atropine 1 dose was given. The patient immediately went into PEA arrest, and subsequently underwent 2 rounds of CPR with 2 doses of epinephrine, and ROSC. The patient had been noted to be hypokalemic and was receiving potassium repletion prior to the incident. During the code of note magnesium level was 1.3 and the patient received 2 g of magnesium. The patient was then transferred to CVICU, placed on epinephrine infusion. The patient's mother was notified of events and requests aggressive treatment measures continue to be instituted. Dr. Wright was notified of the events. Critical care medicine is consulted for management and treatment. Subjective: 07/02: Overnight the patient went into PEA arrest, secondary to his cardiogenic shock possibly secondary to stunned myocardium. Bedside echocardiogram showed ejection fraction approximately 10-15%. CVP at that time was 26, aggressive diureses with 80 of Lasix IV was given. Additional vasopressor support was added the patient now is on epinephrine, dobutamine, and norepinephrine for vasopressor support.the patient underwent CPR for approximately 4-5 minutes with ROSC, after 2 rounds of epinephrine bolus, and calcium chloride. CT scan was negative yesterday afternoon, the patient continues on therapeutic Lovenox for atrial fibrillation. This morning, neuro assessment was performed. GCS E4, V1,M6-the patient opened his eyes spontaneously, positive gag and corneal reflexes. Patient follow commands moving bilateral feet, and squeezing left hand. Did not follow commands with right upper extremity. Awaiting neurology recommendations. EEG still pending. Objective Vital Signs Date Time Temp Pulse Resp B/P Pulse Ox O2 Delivery O2 Flow Rate FiO2 07/02/16 07:39 97 Mechanical Ventilator 80 07/02/16 07:38 104 07/02/16 07:37 99.0 16 152/85 07/01/16 08:42 4.00 Intake and Output 07/01/16 07/01/16 07/02/16 08:00 16:00 00:00 Intake Total 1946 ml 500 ml Output Total 520 ml 20 ml Balance 1426 ml 480 ml Result Diagram: 07/02/16 0440 07/02/16 0440 Other Results Laboratory Tests Test 07/01/16 07/01/16 07/01/16 14:23 16:37 19:30 Blood Gas Puncture Site ART LINE ART LINE ART LINE Blood Gas Patient Temperature 98.6 98.6 98.6 Blood Gas HCO3 15 mmol/L 17 mmol/L 23 mmol/L (22-26) (22-26) (22-26) Blood Gas Base Excess -11.1 mmol/L -6.6 mmol/L 0.5 mmol/L (-2-2) (-2-2) (-2-2) Blood Gas Oxygen Saturation 91 % (90-100) 91 % (90-100) 96 % (90-100) Arterial Blood pH 7.24 7.43 7.54 (7.380-7.420) (7.380-7.420) (7.380-7.420) Arterial Blood Partial 36 mmHg (38-42) 26 mmHg (38-42) 27 mmHg (38-42) Pressure CO2 Arterial Blood Partial 92 mmHg 73 mmHg 101 mmHg Pressure O2 (61-120) (61-120) (61-120) Arterial Blood Oxygen Content 17.7 Vol % 14.7 Vol % 16.3 Vol % (12.0-20.0) (12.0-20.0) (12.0-20.0) Arterial Blood 1.7 % (0-4) 2.2 % (0-4) 2.2 % (0-4) Carboxyhemoglobin Arterial Blood Methemoglobin 0.9 % (0-2) 0.9 % (0-2) 0.8 % (0-2) Blood Gas Hemoglobin 13.8 G/DL 11.5 G/DL 12.0 G/DL (12.0-16.0) (12.0-16.0) (12.0-16.0) Oxygen Delivery Device VENTILATOR VENTILATOR VENTILATOR Blood Gas Ventilator Setting 550/AC16/PEEP5 600/AC16/PEEP5 AC 14/600/10PEEP Blood Gas Inspired Oxygen 100 % 70 % 70 % Imaging Last Impressions Chest X-Ray 07/01/16 0000 Signed Impressions: Service Date/Time: Friday, July 01, 2016 14:33 - CONCLUSION: Cardiomegaly with diffuse consolidation likely representing edema. Right internal jugular central line with the tip overlying the upper SVC region. Madhav Guy MD Abdomen Ultrasound 07/01/16 0000 Signed Impressions: Service Date/Time: Friday, July 01, 2016 09:33 - CONCLUSION: Small amount of ascites seen around the liver and spleen. This is not large enough to drain. Madhav Guy MD Objective Remarks GENERAL: Morbidly obese male responsive, nodding head yes, spontaneously opening eyes, squeezing my hand upon command. SKIN: Cool and dry HEAD: Atraumatic. Normocephalic. EYES: Pupils equal and round, sluggish but reactive. No scleral icterus. No injection or drainage. ENT: No nasal bleeding or discharge. Mucous membranes pink and moist. NECK: Trachea midline. No JVD. Orotracheally intubated CARDIOVASCULAR: Sinus tachycardia, regular rhythm. RESPIRATORY: Mechanical ventilation, noted previously agonal respirations .Clear to auscultation. Breath sounds equal bilaterally. GASTROINTESTINAL: Abdomen soft, non-tender, nondistended. No guarding. MUSCULOSKELETAL: Extremities without clubbing, cyanosis, or edema. No obvious deformities. NEUROLOGICAL: [id number] . GCS 11 T. Patient moving bilateral lower extremities on command, squeezing left hand. Urinary Catheter: Yes Sauer insert reason: ICU Pt Getting Diuretics Date of Insertion: Jul 01, 2016 Vascular Central Line Catheter: Yes Assessment to: Continue Date of Insertion: Jul 01, 2016 Line: Central Venous Catheter Side: Right Location: Internal, Jugular Reason for Continuation Vasoactive medication, and monitoring CVP A/P Assessment and Plan This is an unfortunate 45-year-old gentleman, that was found unresponsive on the floor in the hospital room, for unknown period of time.CPR initiated with ROSC, but unknown timing of respiratory arrest/hypoxia. Subsequently the patient went into PEA arrest during the night. Neurologic status has improved with patient following commands x 3 extremities. Neurologic: Possible anoxic encephalopathy secondary to cardiac arrest Alcohol dependency History of seizure disorder Neurochecks per ICU protocol GCS 11 T Begin propofol infusion at 40mcgs/kg/min and low-dose for ventilator synchrony F/U EEG 07/01 CT scan -no acute intracranial abnormality Monitor for signs of alcohol withdrawal Continue thiamine and multivitamin Ativan PRN for withdrawal symptoms Neurology consulted -follow-up recommendations Respiratory: S/P Hypoxic respiratory arrest COPD exacerbation Right lower lobe pneumonia Pulmonary edema Tobacco abuse ABG 7.54/27/101/23/0.5 Mechanical ventilation settings-16/600/.80/10-we'll continue to wean FiO2 to maintain O2 sat greater than 92% CXR 07/01-edema resolving, decrease in left upper lobe opacity, no change in right lung opacity Continue azithromycin, Rocephin (day 3) Bronchodilators every 6 hours schedule every 2 hours when necessary Continue methylprednisolone Ventilator bundle Maintain head of bed 30 Cardiovascular: Cardiomyopathy NSTEMI A. fib RVR PEA arrest Systolic congestive heart failure Echo 06/30-ejection fraction 2530%, aortic valve mild regurgitation, mitral valve mild to moderate regurgitation, systolic function severely diminished, tricuspid valve trace to mild regurgitation Vasopressor support Epinephrine 6 mcgs/min, [id number] mcgs/kg/min, Norepinephrine 7.5 mcgs/min-maintain MAP > 65 mmHg, weaning off epinephrine and norepinephrine as tolerated Discontinue Cardizem, lisinopril Hold metoprolol for now Cardiology on boardDr. Wright follow-up recommendations Obtain Limited echo S/P second PEA cardiac arrest Continue Lasix 40 mg every 12 hours Renal: Insert Sauer -- Strict I/Os FEN/GI: Hypocalcemia Hyponatremia (chronic? ) Monitor BMP repeat in 4 hours Replete electrolytes per ICU protocol Na level 132, from 131 Heme/ID: Community-acquired Pneumonia, right lower lobe Thrombocytopenia F/U sputum culture Continue azithromycin and Rocephin Monitor CBC Platelet Count 72 from 100's yesterday, will continue to monitor Endocrine: Hyperglycemia of critical illness Glucose monitoring per ICU protocol, low-dose regimen -- SSI Prophylaxis: GI Prophylaxis Pepcid twice a day DVT Prophylaxis -- SCDs Patient on therapeutic Lovenox at 90 mg twice a day Lines: Peripheral IVs 2. Right femoral arterial line, central line right IJ Dispo: I discussed with AUTOMOTIVE DESIGNER at bedside, and telephone mother Ms. Karley Valdez and provided an update. This patient remains critically ill with one or more organ systems which are or may become a threat to life. I have spent in excess of 57 minutes discontinuously in the care and management of this patient. This time is exclusive of procedures, and includes, but is not limited to, evaluation of the patient, review of the medical record, discussions with family, consultants, nursing staff, or respiratory therapy, and documentation in the medical record. Physician Joi Nichols MD Jul 02, 2016 08:08
[2016-07-02] MEDS: ARTIFICIAL TEARS OPTH SOLN 15 ML BTL EACH EYE SCH ×3 (08:56→17:20)
[2016-07-02] MEDS: MAGNESIUM OXIDE 400 MG TAB PO SCH ×2 (08:57→21:10)
[2016-07-02] MEDS: MULTIVITAMIN TAB PO SCH (08:57)
[2016-07-02] MEDS: SODIUM CHLORIDE 0.9% FLUSH 5 ML FLUSH IV FLUSH SCH ×2 (08:57→21:12)
[2016-07-02] MEDS: POTASSIUM CHLORIDE 20 MEQ CONTROLLED RELEASE TAB PO SCH (08:57)
[2016-07-02] MEDS: FAMOTIDINE 20 MG/2 ML VIAL IV PUSH SCH ×2 (08:57→21:11)
[2016-07-02] MEDS: THIAMINE HCL 100 MG TAB PO SCH (08:58)
[2016-07-02] MEDS: LORazepam 1 MG TAB PO PRN (09:15)
--- NOTE | 2016-07-02 10:36 | PD.CARD.PN ---
Subjective Subjective Remarks Pt not responsive on vent Objective Medications Current Medications Medications (Trade) Dose Ordered Sig/Naren Route Start Time Stop Time Status Last Admin (Tylenol) 650 mg Q4H PRN PO 06/30/16 01:15 (Milk Of Magnesia Liq) 30 ml Q12H PRN PO 06/30/16 01:15 (Lovenox Inj) 90 mg Q12H SQ 06/30/16 13:00 07/02/16 01:06 Naloxone HCl 0.4 mg 0.4 mg UNSCH PRN IV 06/30/16 01:15 Ceftriaxone Sodium 1000 mg/ Sodium Chloride 100 ml @ 200 mls/hr Q24H IV 07/01/16 01:00 07/02/16 01:06 (Zithromax Inj/ NS 250 ml Inj) 250 ml @ 250 mls/hr Q24H IV 07/01/16 01:00 07/02/16 01:28 (SoluMEDROL INJ) 40 mg Q8HR IV PUSH 06/30/16 08:15 07/02/16 05:27 (Vitamin B1) 100 mg DAILY PO 06/30/16 09:00 07/02/16 08:58 (Theragran) 1 tab DAILY PO 06/30/16 09:00 07/02/16 08:57 (Mag-Ox) 400 mg Q12HR PO 06/30/16 16:30 07/02/16 08:57 (Romazicon Inj) 0.2 mg Q1M PRN IV PUSH 06/30/16 21:45 (Ativan) 1 mg Q4H PRN PO 06/30/16 21:45 07/02/16 09:15 (Lopressor) 50 mg Q8H PO 07/01/16 08:00 Hold 07/01/16 09:33 (Lasix) 40 mg BID@09,18 PO 07/01/16 09:00 Hold 07/01/16 09:34 (KCl) 20 meq Q12HR PO 07/01/16 09:00 07/02/16 08:57 (Pill Splitter) 1 ea UNSCH PRN OTHER 07/01/16 08:45 (NS Flush) 2 ml UNSCH PRN IV FLUSH 07/01/16 14:45 (NS Flush) 2 ml BID IV FLUSH 07/01/16 21:00 07/02/16 08:57 (Pepcid Inj) 20 mg Q12HR IV PUSH 07/01/16 21:00 07/02/16 08:57 (Tears Naturale Opth Soln) 1 drop TID EACH EYE 07/01/16 18:00 07/02/16 08:56 (Zofran Inj) 4 mg Q6H PRN IV 07/01/16 14:45 (Colace) 100 mg Q12H PO 07/01/16 14:45 (Senokot) 17.2 mg Q12H PRN PO 07/01/16 14:45 Miscellaneous Information 1 1 [id number] XX 07/01/16 14:45 Potassium Chloride 100 ml @ 50 mls/hr Q2H PRN IV 07/01/16 14:45 Potassium Chloride 100 ml @ 50 mls/hr Q2H PRN IV 07/01/16 14:45 Potassium Chloride 100 ml @ 25 mls/hr UNSCH PRN IV 07/01/16 14:45 Potassium Chloride 100 ml @ 50 mls/hr Q2H PRN IV 07/01/16 14:45 (Magnesium Sulfate Inj/NS Inj) 100 ml @ 50 mls/hr UNSCH PRN IV 07/01/16 14:45 Magnesium Oxide 800 mg 800 mg UNSCH PRN PO 07/01/16 14:45 (Magnesium Sulfate Inj/NS Inj) 100 ml @ 50 mls/hr UNSCH PRN IV 07/01/16 14:45 Potassium Phosphate 2000 mg 2,000 mg Q4H PRN PO 07/01/16 14:45 Sodium Phosphate 30 mmol/Sodium Chloride 250 ml @ 42 mls/hr UNSCH PRN IV 07/01/16 14:45 (Potassium Phosphate Inj/NS 250 ml Inj) 260 ml @ 42 mls/hr UNSCH PRN IV 07/01/16 14:45 Chlorhexidine Gluconate 15 ml 15 ml BID@08,20 MT 07/01/16 20:00 07/02/16 08:01 (Diprivan 1000 Mg/100ml Inj) 100 ml @ 0 mls/hr TITRATE IV 07/01/16 14:45 07/02/16 09:35 (D50w (Vial) Inj) 25 ml UNSCH PRN IV PUSH 07/01/16 14:45 Glucagon 1 mg 1 mg UNSCH PRN OTHER 07/01/16 14:45 Diltiazem HCl 125 mg/Sodium Chloride 125 ml @ 0 mls/hr TITRATE IV 07/01/16 20:30 Norepinephrine Bitartrate 250 ml @ 0 mls/hr TITRATE IV 07/01/16 22:15 07/02/16 04:05 Dobutamine HCl/ Dextrose 250 ml @ 15.33 mls/ hr [id number] IV 07/01/16 22:15 07/02/16 05:28 (Adrenalin (1:1000) Inj/D5W Inj) 252 ml @ 0 mls/hr TITRATE IV 07/02/16 04:45 07/02/16 04:48 (Lasix Inj) 40 mg Q12H IV PUSH 07/02/16 20:00 Vital Signs / I&O Vital Signs Date Time Temp Pulse Resp B/P Pulse Ox O2 Delivery O2 Flow Rate FiO2 07/02/16 10:25 40 07/02/16 09:53 99 40 07/02/16 08:21 60 07/02/16 07:39 97 Mechanical Ventilator 80 07/02/16 07:38 104 07/02/16 07:37 99.0 110 16 152/85 100 07/02/16 07:06 100 100 07/02/16 04:10 99 100 07/02/16 04:00 100 07/02/16 04:00 97 Mechanical Ventilator 100 07/02/16 04:00 99.2 104 16 129/75 97 07/02/16 04:00 104 07/02/16 01:00 98 70 07/02/16 00:00 99.0 79 15 105/77 99 98/55 07/02/16 00:00 70 07/02/16 00:00 99 Mechanical Ventilator 70 07/02/16 00:00 80 07/01/16 22:14 99 70 07/01/16 21:00 100 100 07/01/16 20:00 98 Mechanical Ventilator 70 07/01/16 20:00 70 07/01/16 20:00 99.3 103 16 84/50 98 123/80 07/01/16 20:00 104 07/01/16 19:25 99 70 07/01/16 18:10 80 07/01/16 18:07 97.4 99 14 97/52 94 07/01/16 17:00 70 07/01/16 16:50 99 70 07/01/16 15:09 70 70 07/01/16 15:00 97.8 107 30 90/80 97 07/01/16 14:30 99 100 07/01/16 14:20 100 07/01/16 13:40 88 07/01/16 13:40 97.5 96 14 126/64 94 07/01/16 12:00 84 07/01/16 11:30 98.0 98 16 119/73 94 07/01/16 11:00 109 I/O 07/01/16 07/01/16 07/01/16 07/02/16 07/02/16 07/02/16 07:00 15:00 23:00 07:00 15:00 23:00 Intake Total 1946 ml 500 ml 2275 ml Output Total 520 ml 20 ml 3350 ml Balance 1426 ml 480 ml -1075 ml Intake Oral 720 ml 0 ml 0 ml IV Total 1226 ml 500 ml 2275 ml Output Urine Total 520 ml 20 ml 3350 ml # Bowel Movements 0 0 Physical Exam GENERAL: Well developed, well nourished. No acute distress. on vent HEENT: Jugular venous pressure is normal. CHEST: Lungs clear to auscultation bilaterally. Unlabored respiratory effort. CARDIAC: irregular rate and rhythm without S3, S4, or murmur. ABDOMEN: Soft, nontender, no hepatosplenomegaly. Bowel sounds present. EXTREMITIES: No clubbing, cyanosis, 1+ edema. Laboratory Laboratory Tests Test 07/01/16 07/01/16 07/01/16 07/01/16 14:15 14:18 14:23 16:37 Lactic Acid Level 8.7 mmol/L White Blood Count 16.7 TH/MM3 Red Blood Count 4.08 MIL/MM3 Hemoglobin 13.6 GM/DL Hematocrit 41.8 % Mean Corpuscular Volume 102.6 FL Mean Corpuscular Hemoglobin 33.3 PG Mean Corpuscular Hemoglobin 32.5 % Concent Red Cell Distribution Width 15.1 % Platelet Count 100 TH/MM3 Mean Platelet Volume 10.3 FL Neutrophils (%) (Auto) 85.2 % Lymphocytes (%) (Auto) 4.2 % Monocytes (%) (Auto) 10.0 % Eosinophils (%) (Auto) 0.2 % Basophils (%) (Auto) 0.4 % Neutrophils # (Auto) 14.2 TH/MM3 Lymphocytes # (Auto) 0.7 TH/MM3 Monocytes # (Auto) 1.7 TH/MM3 Eosinophils # (Auto) 0.0 TH/MM3 Basophils # (Auto) 0.1 TH/MM3 CBC Comment AUTO DIFF Differential Comment AUTO DIFF CONFIRMED Platelet Estimate LOW Platelet Morphology Comment NORMAL Target Cells 1+ Prothrombin Time 14.9 SEC Prothromb Time International 1.3 RATIO Ratio Activated Partial 37.9 SEC Thromboplast Time Sodium Level 131 MEQ/L Potassium Level 4.7 MEQ/L Chloride Level 92 MEQ/L Carbon Dioxide Level 20.7 MEQ/L Anion Gap 18 MEQ/L Blood Urea Nitrogen 17 MG/DL Creatinine 1.34 MG/DL Estimat Glomerular Filtration 57 ML/MIN Rate Random Glucose 188 MG/DL Calcium Level 7.4 MG/DL Protein Corrected Calcium 7.1 MG/DL Phosphorus Level 4.9 MG/DL Magnesium Level 3.5 MG/DL Total Bilirubin 3.4 MG/DL Aspartate Amino Transf 87 U/L (AST/SGOT) Alanine Aminotransferase 50 U/L (ALT/SGPT) Alkaline Phosphatase 188 U/L Troponin I 0.11 NG/ML B-Type Natriuretic Peptide 936 PG/ML Total Protein 7.8 GM/DL Albumin 2.6 GM/DL Blood Type O POSITIVE Antibody Screen NEGATIVE Blood Bank Comment Blood Gas Puncture Site ART LINE ART LINE Blood Gas Patient Temperature 98.6 98.6 Blood Gas HCO3 15 mmol/L 17 mmol/L Blood Gas Base Excess -11.1 mmol/L -6.6 mmol/L Blood Gas Oxygen Saturation 91 % 91 % Arterial Blood pH 7.24 7.43 Arterial Blood Partial 36 mmHg 26 mmHg Pressure CO2 Arterial Blood Partial 92 mmHg 73 mmHg Pressure O2 Arterial Blood Oxygen Content 17.7 Vol % 14.7 Vol % Arterial Blood 1.7 % 2.2 % Carboxyhemoglobin Arterial Blood Methemoglobin 0.9 % 0.9 % Blood Gas Hemoglobin 13.8 G/DL 11.5 G/DL Oxygen Delivery Device VENTILATOR VENTILATOR Blood Gas Ventilator Setting 550/AC16/PEEP5 600/AC16/PEEP5 Blood Gas Inspired Oxygen 100 % 70 % Test 07/01/16 07/01/16 07/01/16 07/02/16 19:30 21:30 22:10 01:10 Blood Gas Puncture Site ART LINE Blood Gas Patient Temperature 98.6 Blood Gas HCO3 23 mmol/L Blood Gas Base Excess 0.5 mmol/L Blood Gas Oxygen Saturation 96 % Arterial Blood pH 7.54 Arterial Blood Partial 27 mmHg Pressure CO2 Arterial Blood Partial 101 mmHg Pressure O2 Arterial Blood Oxygen Content 16.3 Vol % Arterial Blood 2.2 % Carboxyhemoglobin Arterial Blood Methemoglobin 0.8 % Blood Gas Hemoglobin 12.0 G/DL Oxygen Delivery Device VENTILATOR Blood Gas Ventilator Setting AC 14/600/10PEEP Blood Gas Inspired Oxygen 70 % Nasal Screen MRSA (PCR) POSITIVE Phosphorus Level 2.4 MG/DL Total Creatine Kinase 110 U/L Troponin I 0.10 NG/ML Lactic Acid Level 2.0 mmol/L Test 07/02/16 04:40 White Blood Count 10.1 TH/MM3 Red Blood Count 3.88 MIL/MM3 Hemoglobin 13.1 GM/DL Hematocrit 38.8 % Mean Corpuscular Volume 100.0 FL Mean Corpuscular Hemoglobin 33.8 PG Mean Corpuscular Hemoglobin 33.9 % Concent Red Cell Distribution Width 14.6 % Platelet Count 72 TH/MM3 Mean Platelet Volume 9.5 FL Neutrophils (%) (Auto) 90.5 % Lymphocytes (%) (Auto) 4.4 % Monocytes (%) (Auto) 5.0 % Eosinophils (%) (Auto) 0.0 % Basophils (%) (Auto) 0.1 % Neutrophils # (Auto) 9.1 TH/MM3 Lymphocytes # (Auto) 0.4 TH/MM3 Monocytes # (Auto) 0.5 TH/MM3 Eosinophils # (Auto) 0.0 TH/MM3 Basophils # (Auto) 0.0 TH/MM3 CBC Comment AUTO DIFF Differential Comment AUTO DIFF CONFIRMED Platelet Estimate LOW Platelet Morphology Comment ENLARGED Activated Partial 34.0 SEC Thromboplast Time Sodium Level 132 MEQ/L Potassium Level 3.6 MEQ/L Chloride Level 95 MEQ/L Carbon Dioxide Level 25.3 MEQ/L Anion Gap 12 MEQ/L Blood Urea Nitrogen 20 MG/DL Creatinine 1.32 MG/DL Estimat Glomerular Filtration 58 ML/MIN Rate Random Glucose 211 MG/DL Lactic Acid Level 1.9 mmol/L Calcium Level 7.8 MG/DL Phosphorus Level 3.3 MG/DL Magnesium Level 1.9 MG/DL Total Bilirubin 3.0 MG/DL Aspartate Amino Transf 67 U/L (AST/SGOT) Alanine Aminotransferase 44 U/L (ALT/SGPT) Alkaline Phosphatase 148 U/L Troponin I 0.10 NG/ML B-Type Natriuretic Peptide 1282 PG/ML Total Protein 6.9 GM/DL Albumin 2.2 GM/DL Imaging Last 72 hours Impressions Chest X-Ray 07/02/16 0000 Signed Impressions: Service Date/Time: June 03:29 - CONCLUSION: 1. No change in hazy right lung opacity. Decrease in left upper lung zone opacity. 2. Nasogastric tube now in place with tip in the stomach. Gaudencio Marcum MD Head CT 07/01/16 1922 Signed Impressions: Service Date/Time: Friday, July 01, 2016 21:13 - CONCLUSION: No acute disease. Darian Oswald MD Chest X-Ray 07/01/16 0000 Signed Impressions: Service Date/Time: Friday, July 01, 2016 14:33 - CONCLUSION: Cardiomegaly with diffuse consolidation likely representing edema. Right internal jugular central line with the tip overlying the upper SVC region. Madhav Guy MD Chest X-Ray 07/01/16 0000 Signed Impressions: Service Date/Time: Friday, July 01, 2016 13:38 - CONCLUSION: Cardiomegaly with diffuse increased parenchymal markings likely representing edema. Some degree of right effusion needs to be considered. Madhav Guy MD Abdomen Ultrasound 07/01/16 0000 Signed Impressions: Service Date/Time: Friday, July 01, 2016 09:33 - CONCLUSION: Small amount of ascites seen around the liver and spleen. This is not large enough to drain. Madhav Guy MD Chest X-Ray 06/29/16 2344 Signed Impressions: Service Date/Time: Wednesday, June 29, 2016 23:49 - CONCLUSION: 1. Right lower lung consolidation and small right pleural effusion. 2. Moderate cardiac silhouette enlargement. Gaudencio Marcum MD Assessment and Plan Assessment and Plan s/p arrest x2,- PEA this am, on pressors including dobutamine, now on epi -no overt etiology as discussed with Dr Silverio yesterday - ECHO pending AF- reasonable rate Cardiomyopathy- ETOH vs tachycardia vs ischemia vs other -BP too low for BB or margarito CHF acute systolic failure- diuresing this am Pneumonia- ETOH- ETOH- told to quit Jerrica Wright MD Jul 02, 2016 10:36
[2016-07-02 11:27] LABS: BICARBONATE 32.3 MEQ/L (21.0-32.0); MAGNESIUM 1.6 MG/DL (1.5-2.5)
[2016-07-02 11:30] LABS: POTASSIUM 2.9 MEQ/L (3.5-5.1)
[2016-07-02] MEDS: POTASSIUM CHLOR 20 MEQ PREMIX 100 ML IV PRN ×3 (11:31→13:44)
--- NOTE | 2016-07-02 12:49 | EC ---
Study Study Date:07/02/2016 STUDY CONCLUSIONS SUMMARY - Left ventricle: The cavity size was dilated. Wall thickness was increased in a pattern of mild LVH. Systolic function was severely reduced by visual assessment. The estimated ejection fraction was in the range of 30% to 35%. Diffuse hypokinesis. - Aortic valve: Trace regurgitation. Valve area: 2.26cm^2(VTI). Valve area: 2.63cm^2 (Vmax). - Mitral valve: Mild regurgitation. - Tricuspid valve: Mild regurgitation. - Pericardium, extracardiac: A small pericardial effusion was identified circumferential to the heart. There was no evidence of hemodynamic compromise. If LV function is below 40, please consider prescribing an ACEI or ARB or document rationale for non-use. PROCEDURE DATA STUDY STATUS: Elective. Procedure: Transthoracic echocardiography. Image quality was good. Scanning was performed from the parasternal, apical, and subcostal acoustic windows. Study completion: The patient tolerated the procedure well. Transthoracic echocardiography. M-mode, complete 2D, complete spectral Doppler, and color Doppler. Height: Height: 69in. Weight: Weight: 220.5lb. Body mass index: BMI: 32.6kg/m^2. Body surface area: BSA: 2.16m^2. Patient status: Inpatient. CARDIAC ANATOMY LEFT VENTRICLE: The cavity size was dilated. Wall thickness was increased in a pattern of mild LVH. Systolic function was severely reduced by visual assessment. The estimated ejection fraction was in the range of 30% to 35%. Diffuse hypokinesis. AORTIC VALVE: Trileaflet; normal thickness leaflets. Doppler: Transvalvular velocity was within the normal range. There was no stenosis. Trace regurgitation. Valve area: 2.26cm^2(VTI). Indexed valve area: 1.05cm^2/m^2 (VTI). Valve area: 2.63cm^2 (Vmax). Indexed valve area: 1.22cm^2/m^2 (Vmax). Mean gradient: 4mm Hg (S). AORTA: Aortic root: The aortic root was normal in size. MITRAL VALVE: Not well visualized. Structurally normal valve. Doppler: Transvalvular velocity was within the normal range. There was no evidence for stenosis. Mild regurgitation. LEFT ATRIUM: The atrium was normal in size. RIGHT VENTRICLE: The cavity size was normal. Wall thickness was normal. PULMONIC VALVE: Doppler: Transvalvular velocity was within the normal range. There was no evidence for stenosis. No regurgitation. TRICUSPID VALVE: Structurally normal valve. Doppler: Transvalvular velocity was within the normal range. Mild regurgitation. PULMONARY ARTERY: The main pulmonary artery was normal-sized. Systolic pressure was within the normal range. RIGHT ATRIUM: The atrium was normal in size. PERICARDIUM: A small pericardial effusion was identified circumferential to the heart. There was no evidence of hemodynamic compromise. SYSTEMIC VEINS: Inferior vena cava: The vessel was normal in size. Patient weight: 220.5lb _Ejection fraction:_ 65-75% _Fractional shortening:_ 32% up to 5Kg 5-11.5Kg 11.6-22.9Kg 23-45Kg 45-57Kg Aortic Root 7-13 <17 13-22 17-27 17-27 LA diam 6-13 <23 24-38 33-47 37-40 RVID 10-17 7-15 7-15 7-18 8-17 LVIDd 12-22 <32 24-38 33-47 37-40 LVPW 2-4 3-6 5-7 6-8 7-8 IVS 2-4 3-6 5-7 6-8 7-8 BASIC MEASUREMENTS ADULT NORMAL Left ventricle LV internal dimension, ED, chordal *67.8 mm 43-52 level, PLAX LV internal dimension, ES, chordal *56.3 mm 23-38 level, PLAX Fractional shortening, chordal level, *17 % >29 PLAX LV posterior wall thickness, ED 6.65 mm IVS/LVPW ratio, ED 1 <1.3 Ventricular septum Septal thickness, ED 6.66 mm Aortic valve Leaflet separation 23 mm 15-26 Aorta Root diameter, ED 39 mm Left atrium Anterior-posterior dimension 34 mm Anterior-posterior dimension index 1.57 cm/m^2 <2.2 BASIC MEASUREMENTS ADULT NORMAL Aortic valve Leaflet separation 23 mm 15-26 DOPPLER MEASUREMENTS ADULT NORMAL Main pulmonary artery Pressure, S 30 mm Hg =30 Aortic valve Peak velocity, S 120 cm/s Mean velocity, S 93.1 cm/s VTI, S 19.2 cm Mean gradient, S 4 mm Hg Valve area, VTI 2.26 cm^2 Valve area index, VTI 1.05 cm^2/m^2 Valve area, Vmax 2.63 cm^2 Valve area index, Vmax 1.22 cm^2/m^2 Mitral valve Peak E-wave velocity 64.7 cm/s Deceleration time *92 ms 150-230 Tricuspid valve Regurgitant peak velocity 230 cm/s Peak RV-RA gradient, S 21 mm Hg Maximal regurgitant velocity 230 cm/s Systemic veins Estimated CVP 10 mm Hg Right ventricle RV pressure, S *31 mm Hg <30 Pulmonic valve Peak velocity, S 60.6 cm/s LEGEND: Mean values are shown as u=mean value. Asterisk (*) aparicio values outside specified normal range. Prepared and signed by Kash Hughes [id number]
--- NOTE | 2016-07-02 13:55 | EKG ---
Date Performed: 07/01/2016 Time Performed: 21:32:36 PTAGE: 45 years EKG: Atrial fibrillation with PVC(s) Leftward axis Ant/septal and lateral T wave changes are non specific Generalized low QRS voltages Abnormal ECG PREVIOUS TRACING : 06/30/2016 22.47 DOCTOR: Axel Samayoa Interpretating Date/Time 07/02/2016 13:51:27
[2016-07-02 17:26] LABS: BICARBONATE 32.6 MEQ/L (21.0-32.0); MAGNESIUM 1.6 MG/DL (1.5-2.5); POTASSIUM 3.6 MEQ/L (3.5-5.1)
[2016-07-02 17:49] LABS: CALCIUM-PROTEIN CORRECTED 7.3 MG/DL (8.5-10.1)
[2016-07-02] MEDS ORDERED: MAGNESIUM SULFATE 1 GM PREMIX 100 ML ONE (17:53)
--- NOTE | 2016-07-02 18:04 | HHI.PR ---
Subjective Remarks 45 YOWM with VDRF,s/p cardiac arrest X2 On AC, Fi02 weaned to 40% On Diprivan, Dobutrex Diureasing Objective Vital Signs Vital Signs Date Time Temp Pulse Resp B/P Pulse Ox O2 Delivery O2 Flow Rate FiO2 07/02/16 16:19 40 07/02/16 15:11 97.0 99 14 106/72 100 07/02/16 15:10 100 Mechanical Ventilator 40 07/02/16 15:10 93 07/02/16 15:05 96 40 07/02/16 12:36 94 40 07/02/16 12:03 40 07/02/16 11:04 98.8 99 21 128/72 100 07/02/16 11:03 99 07/02/16 11:02 100 Mechanical Ventilator 40 07/02/16 10:25 40 07/02/16 09:53 99 40 07/02/16 08:21 60 07/02/16 07:39 97 Mechanical Ventilator 80 07/02/16 07:38 104 07/02/16 07:37 99.0 110 16 152/85 100 07/02/16 07:06 100 100 07/02/16 04:10 99 100 07/02/16 04:00 100 07/02/16 04:00 97 Mechanical Ventilator 100 07/02/16 04:00 99.2 104 16 129/75 97 07/02/16 04:00 104 07/02/16 01:00 98 70 07/02/16 00:00 99.0 79 15 105/77 99 98/55 07/02/16 00:00 70 07/02/16 00:00 99 Mechanical Ventilator 70 07/02/16 00:00 80 07/01/16 22:14 99 70 07/01/16 21:00 100 100 07/01/16 20:00 98 Mechanical Ventilator 70 07/01/16 20:00 70 07/01/16 20:00 99.3 103 16 84/50 98 123/80 07/01/16 20:00 104 07/01/16 19:25 99 70 07/01/16 18:10 80 07/01/16 18:07 97.4 99 14 97/52 94 I/O 07/01/16 07/01/16 07/01/16 07/02/16 07/02/16 07/02/16 07:00 15:00 23:00 07:00 15:00 23:00 Intake Total 1946 ml 500 ml 2275 ml 1780 ml Output Total 520 ml 20 ml 3350 ml 5860 ml Balance 1426 ml 480 ml -1075 ml -4080 ml Intake Oral 720 ml 0 ml 0 ml IV Total 1226 ml 500 ml 2275 ml 1780 ml Output Urine Total 520 ml 20 ml 3350 ml 5835 ml Gastric Drainage Total 25 ml # Bowel Movements 0 0 0 Result Diagram: 07/02/16 0440 07/02/16 1628 Objective Remarks GENERAL: WBWN male, on Vent SKIN: Warm and dry. HEAD: Normocephalic. EYES: No scleral icterus. No injection or drainage. NECK: Supple, trachea midline. No JVD or lymphadenopathy. CARDIOVASCULAR: Regular rate and rhythm without murmurs, gallops, or rubs. RESPIRATORY: Breath sounds equal bilaterally. No accessory muscle use. GASTROINTESTINAL: Abdomen soft, non-tender, nondistended. MUSCULOSKELETAL: No cyanosis, or edema. BACK: Nontender without obvious deformity. No CVA tenderness. A/P Assessment and Plan VDRF S/P cardiac arrest CHF AF COPD PLAN: Cont vent support diurease On Dobutrex CPAP trial in Tomer Bauer MD Jul 02, 2016 18:03
[2016-07-02] MEDS: MAGNESIUM SULFATE INJ 2 GM in SODIUM CHLORIDE 0.9% INJ 96 ML IV PRN (18:13)
--- NOTE | 2016-07-02 19:42 | PD.CONS ---
History of Present Illness Service Neurology Consult Requested By [facility] Reason for Consult stupor Primary Care Physician No Primary Care Physician History of Present Illness 45 y/o male admitted on 06/30. went into [facility] on 07/01 with cpr x 2 and ROSC. intubated. on high dose propofol. noted by rn to bocanegra on lower doses of propofol. noted by ccm to follow motor requests. pt unable to give any hx at present. 07/01 ct brain naicp. hx of etoh-withdrawal sz's. had dt's and negative eeg for sz 01/2016. has depressed ef and is homeless. Review of Systems unable to obtain 2/2 mental status Past Family Social History Past Medical History COPD atrial fibrillation diverticulitis Past Surgical History colostomy Reported Medications none Allergies: Coded Allergies: No Known Allergies (Unverified , 06/29/16) hx of tob/etoh use Review of Systems All other ROS: Unable to obtain Past Family Social History Allergies: Coded Allergies: *MDRO Multi-Drug Resistant Organism (Verified Adverse Reaction, Unknown, ) MRSA PCR Screen POSITIVE - 07/02/2016 Active Ordered Medications Current Medications Medications (Trade) Dose Ordered Sig/Naren Route Start Time Stop Time Status Last Admin (Tylenol) 650 mg Q4H PRN PO 06/30/16 01:15 (Milk Of Magnesia Liq) 30 ml Q12H PRN PO 06/30/16 01:15 (Lovenox Inj) 90 mg Q12H SQ 06/30/16 13:00 07/02/16 13:45 Naloxone HCl 0.4 mg 0.4 mg UNSCH PRN IV 06/30/16 01:15 Ceftriaxone Sodium 1000 mg/ Sodium Chloride 100 ml @ 200 mls/hr Q24H IV 07/01/16 01:00 07/02/16 01:06 (Zithromax Inj/ NS 250 ml Inj) 250 ml @ 250 mls/hr Q24H IV 07/01/16 01:00 07/02/16 01:28 (SoluMEDROL INJ) 40 mg Q8HR IV PUSH 06/30/16 08:15 07/02/16 14:04 (Vitamin B1) 100 mg DAILY PO 06/30/16 09:00 07/02/16 08:58 (Theragran) 1 tab DAILY PO 06/30/16 09:00 07/02/16 08:57 (Mag-Ox) 400 mg Q12HR PO 06/30/16 16:30 07/02/16 08:57 (Romazicon Inj) 0.2 mg Q1M PRN IV PUSH 06/30/16 21:45 (Ativan) 1 mg Q4H PRN PO 06/30/16 21:45 07/02/16 09:15 (Lopressor) 50 mg Q8H PO 07/01/16 08:00 Hold 07/01/16 09:33 (Lasix) 40 mg BID@09,18 PO 07/01/16 09:00 Hold 07/01/16 09:34 (KCl) 20 meq Q12HR PO 07/01/16 09:00 07/02/16 08:57 (Pill Splitter) 1 ea UNSCH PRN OTHER 07/01/16 08:45 (NS Flush) 2 ml UNSCH PRN IV FLUSH 07/01/16 14:45 (NS Flush) 2 ml BID IV FLUSH 07/01/16 21:00 07/02/16 08:57 (Pepcid Inj) 20 mg Q12HR IV PUSH 07/01/16 21:00 07/02/16 08:57 (Tears Naturale Opth Soln) 1 drop TID EACH EYE 07/01/16 18:00 07/02/16 17:20 (Zofran Inj) 4 mg Q6H PRN IV 07/01/16 14:45 (Colace) 100 mg Q12H PO 07/01/16 14:45 07/02/16 14:45 (Senokot) 17.2 mg Q12H PRN PO 07/01/16 14:45 Miscellaneous Information 1 1 Q361D XX 07/01/16 14:45 Potassium Chloride 100 ml @ 50 mls/hr Q2H PRN IV 07/01/16 14:45 Potassium Chloride 100 ml @ 50 mls/hr Q2H PRN IV 07/01/16 14:45 07/02/16 13:44 Potassium Chloride 100 ml @ 25 mls/hr UNSCH PRN IV 07/01/16 14:45 Potassium Chloride 100 ml @ 50 mls/hr Q2H PRN IV 07/01/16 14:45 (Magnesium Sulfate Inj/NS Inj) 100 ml @ 50 mls/hr UNSCH PRN IV 07/01/16 14:45 Magnesium Oxide 800 mg 800 mg UNSCH PRN PO 07/01/16 14:45 (Magnesium Sulfate Inj/NS Inj) 100 ml @ 50 mls/hr UNSCH PRN IV 07/01/16 14:45 07/02/16 18:13 Potassium Phosphate 2000 mg 2,000 mg Q4H PRN PO 07/01/16 14:45 Sodium Phosphate 30 mmol/Sodium Chloride 250 ml @ 42 mls/hr UNSCH PRN IV 07/01/16 14:45 (Potassium Phosphate Inj/NS 250 ml Inj) 260 ml @ 42 mls/hr UNSCH PRN IV 07/01/16 14:45 Chlorhexidine Gluconate 15 ml 15 ml BID@08,20 MT 07/01/16 20:00 07/02/16 08:01 (Diprivan 1000 Mg/100ml Inj) 100 ml @ 0 mls/hr TITRATE IV 07/01/16 14:45 07/02/16 16:16 (D50w (Vial) Inj) 25 ml UNSCH PRN IV PUSH 07/01/16 14:45 Glucagon 1 mg 1 mg UNSCH PRN OTHER 07/01/16 14:45 Diltiazem HCl 125 mg/Sodium Chloride 125 ml @ 0 mls/hr TITRATE IV 07/01/16 20:30 Norepinephrine Bitartrate 250 ml @ 0 mls/hr TITRATE IV 07/01/16 22:15 07/02/16 04:05 Dobutamine HCl/ Dextrose 250 ml @ 15.33 mls/ hr [id number] IV 07/01/16 22:15 07/02/16 14:51 (Adrenalin (1:1000) Inj/D5W Inj) 252 ml @ 0 mls/hr TITRATE IV 07/02/16 04:45 07/02/16 04:48 (Lasix Inj) 40 mg Q12H IV PUSH 07/02/16 20:00 Exam I&O / VS 07/01/16 07/01/16 07/02/16 15:00 23:00 07:00 Intake Total 500 ml 2275 ml Output Total 20 ml 3350 ml Balance 480 ml -1075 ml Intake Oral 0 ml 0 ml IV Total 500 ml 2275 ml Output Urine Total 20 ml 3350 ml # Bowel Movements 0 0 Vital Signs Date Time Temp Pulse Resp B/P Pulse Ox O2 Delivery O2 Flow Rate FiO2 07/02/16 16:19 40 07/02/16 15:11 97.0 99 14 106/72 100 07/02/16 15:10 100 Mechanical Ventilator 40 07/02/16 15:10 93 07/02/16 15:05 96 40 07/02/16 12:36 94 40 07/02/16 12:03 40 07/02/16 11:04 98.8 99 21 128/72 100 07/02/16 11:03 99 07/02/16 11:02 100 Mechanical Ventilator 40 07/02/16 10:25 40 07/02/16 09:53 99 40 07/02/16 08:21 60 07/02/16 07:39 97 Mechanical Ventilator 80 07/02/16 07:38 104 07/02/16 07:37 99.0 110 16 152/85 100 07/02/16 07:06 100 100 07/02/16 04:10 99 100 07/02/16 04:00 100 07/02/16 04:00 97 Mechanical Ventilator 100 07/02/16 04:00 99.2 104 16 129/75 97 07/02/16 04:00 104 07/02/16 01:00 98 70 07/02/16 00:00 99.0 79 15 105/77 99 98/55 07/02/16 00:00 70 07/02/16 00:00 99 Mechanical Ventilator 70 07/02/16 00:00 80 07/01/16 22:14 99 70 07/01/16 21:00 100 100 07/01/16 20:00 98 Mechanical Ventilator 70 07/01/16 20:00 70 07/01/16 20:00 99.3 103 16 84/50 98 123/80 07/01/16 20:00 104 General: Alert and Oriented, Mild distress Eye: EOMI Neurologic: Alert, Oriented, Normal motor, No focal defects, CN II-XII intact Psychiatric: Cooperative Exam Comments intubated. lowering proprofol results in more spontaneous eye opening, not following, eomi, ou 3.5-3mm, bocanegra grossly while restrained Review/Management Diagnosis/Plan: (1) Hypoxic encephalopathy Plan: probable mild HIE has brainstem reflexes at present and their is indication by ccm that he may be following commands earlier today recs neuro exam appears to have improved and likely will continue to as his cardiopulmonary illness improves f/u eeg watch for dt's his prognosis appears largely contingent on the status of his cardiac function will follow peripherally (2) ETOHism Ronen Castro MD Jul 02, 2016 19:42
[2016-07-02] MEDS ORDERED: FUROSEMIDE 40 MG/4 ML VIAL IV PUSH SCH (20:00)
[2016-07-02] MEDS ORDERED: FUROSEMIDE 40 MG/4 ML VIAL IV PUSH ONE (21:00)
[2016-07-02] MEDS ORDERED: CALCIUM CHLORIDE INJ 1 GM in SODIUM CHLORIDE 0.9% INJ 100 ML IV ONE (21:00)
--- NOTE | 2016-07-02 21:01 | HHI.PR ---
Subjective Remarks Re-evaluated patient with ongoing cardiogenic shock and multiple inotropic agents. Significant diuresis throughout the day. weakly starting to follow commands. despite this, CVP still 15 and still evidence by clinical exam to be acutely volume overloaded. echo report with EF still 30%, although this appears to have improved since overnight post-arrest EF, likely a combination of some ventricular recovery post-arrest and addition of second inotrope, epinephrine. On my exam, remains on dubutamine at 5mcg/kg/min. extremities remain cool and poorly perfused. pupils reactive and conjugate. did not follow commands on my exam, but withdraws x 4, and per nursing, had recently followed commands for them. Assessment: 45yM s/p in-hospital cardiac arrest with multisystem organ failure and persistent cardiogenic shock. Remains critically ill and very tenuous, clearly since he has arrested twice within the last 36 hours. Active Problems: Hypoxic Respiratory Failure Cardiogenic Shock Acute biventricular systolic dysfunction Acute intravascular volume overload Metabolic alkalosis- likely secondary to intravascular contraction Plan: -- will redose lasix 80mg iv x 1 -- will add diamox 500mg iv x 1 for metabolic alkalosis to prevent compensatory hypoventilation. -- continue dobutamine at 5 mcg/kg/min. -- continue frequent neuro checks -- continue to wean levophed for goal map > 65 mmHg -- will aim for an additional 2L net negative overnight to optimize cardiac function and intravascular volume status. This patient remains critically ill with one or more organ systems which are or may become a threat to life. This addendum represents an additional 27 minutes in excess of any time previously documented in the care and management of this patient. This time is discontinuous, exclusive of procedures, and includes, but is not limited to, evaluation of the patient, review of the medical record, discussions with family, consultants, nursing staff, or respiratory therapy, and documentation in the medical record. Objective Vital Signs Date Time Temp Pulse Resp B/P Pulse Ox O2 Delivery O2 Flow Rate FiO2 07/02/16 20:30 98 40 07/02/16 16:19 40 07/02/16 15:11 97.0 99 14 106/72 100 07/02/16 15:10 100 Mechanical Ventilator 40 07/02/16 15:10 93 07/02/16 15:05 96 40 07/02/16 12:36 94 40 07/02/16 12:03 40 07/02/16 11:04 98.8 99 21 128/72 100 07/02/16 11:03 99 07/02/16 11:02 100 Mechanical Ventilator 40 07/02/16 10:25 40 07/02/16 09:53 99 40 07/02/16 08:21 60 07/02/16 07:39 97 Mechanical Ventilator 80 07/02/16 07:38 104 07/02/16 07:37 99.0 110 16 152/85 100 07/02/16 07:06 100 100 07/02/16 04:10 99 100 07/02/16 04:00 100 07/02/16 04:00 97 Mechanical Ventilator 100 07/02/16 04:00 99.2 104 16 129/75 97 07/02/16 04:00 104 07/02/16 01:00 98 70 07/02/16 00:00 99.0 79 15 105/77 99 98/55 07/02/16 00:00 70 07/02/16 00:00 99 Mechanical Ventilator 70 07/02/16 00:00 80 07/01/16 22:14 99 70 07/01/16 21:00 100 100 I/O 07/01/16 07/01/16 07/01/16 07/02/16 07/02/16 07/02/16 07:00 15:00 23:00 07:00 15:00 23:00 Intake Total 1946 ml 500 ml 2275 ml 1780 ml Output Total 520 ml 20 ml 3350 ml 5860 ml Balance 1426 ml 480 ml -1075 ml -4080 ml Intake Oral 720 ml 0 ml 0 ml IV Total 1226 ml 500 ml 2275 ml 1780 ml Output Urine Total 520 ml 20 ml 3350 ml 5835 ml Gastric Drainage Total 25 ml # Bowel Movements 0 0 0 Result Diagram: 07/02/16 0440 07/02/16 1628 Anil Cade MD Jul 02, 2016 21:01
[2016-07-02] MEDS: DOCUSATE SODIUM 100 MG/10 ML UDC PO SCH (21:12)
[2016-07-02] MEDS: POTASSIUM CHLORIDE 20 MEQ PWD PACKET PO SCH (22:49)
[2016-07-02] MEDS: MAGNESIUM SULFATE 1 GM PREMIX 100 ML IV SCH ×2 (22:50→23:30)
[2016-07-03] VITALS (15 sets, daily range): BP systolic 107–138; BP diastolic 64–94; PULSE 90–121; RESP 14–20; TEMP 97.4–99; O2SAT 92–99
[2016-07-03] MEDS: AZITHROMYCIN INJ 500 MG in SODIUM CHLOR 0.9% 250 ML INJ 250 ML IV SCH (00:37)
[2016-07-03] MEDS: ENOXAPARIN SODIUM 100 MG/ML SYRINGE SQ SCH ×2 (00:40→11:00)
[2016-07-03 01:06] LABS: BICARBONATE 32.5 MEQ/L (21.0-32.0); MAGNESIUM 2.3 MG/DL (1.5-2.5)
[2016-07-03] MEDS: cefTRIAXone INJ 1,000 MG in SODIUM CHLORIDE 0.9% INJ 100 ML IV SCH (01:07)
[2016-07-03 01:08] LABS: POTASSIUM 2.8 MEQ/L (3.5-5.1)
[2016-07-03] MEDS: PROPOFOL 1000 MG/100 ML INJ 100 ML IV SCH ×3 (01:08→06:56)
[2016-07-03] MEDS: POTASSIUM CHLOR 40 MEQ PREMIX 100 ML IV PRN ×4 (01:11→19:02)
[2016-07-03] MEDS: RESP: ALBUTEROL 2.5 MG/IPRATROPIUM 0.5 MG NEB (SCH) INH ×4 (03:40→20:55)
--- NOTE | 2016-07-03 06:17 | MG ---
cc: JAIME MEREDITH MD Lab No: [id number] Date: 07/02/2016 Age: 45 Sex: M Race: EEG RECORD NUMBER [id number] DATE OF 1970 INDICATIONS A 45-year-old with history of cardiac arrest, agitation, confusion. FINDINGS Significant myogenic artifact noted in a generalized fashion. However, this improved towards the last third of the recording. Generalized delta activity. Spindles were observed. 10 to 30 microvolts. EEG variability noted. Single EKG showing premature contractions. INTERPRETATION Moderate encephalopathy with possible superimposed sleep state with the absence of seizure activity. Clinical correlation. Jaime Meredith MD MG/SSB /6:04 AM /6:14 AM
[2016-07-03] MEDS: methylPREDNISolone SOD SUCC 40 MG/1 ML VIAL IV PUSH SCH ×3 (06:36→22:06)
--- NOTE | 2016-07-03 06:44 | HHI.CCPN ---
Subjective Remarks/Hospital Course The patient is a 45 y/o male with history of COPD and atrial fibrillation who presented to ED, on 06/30/2016 with three week history of sob and cough, described as productive with yellowish sputum. He also presented with complaints of left-sided chest pain with radiation to the right side. he's also complaining of some left sided chest pain. The patient states he was diagnosed with A. fib, and COPD years ago but was noncompliant and did not take any medications secondary to finances. The patient also reported drinking approximately 4 beers a day and is chronic smoker. Since his admission with diagnosis of,NSTEMI, A. fib RVR, cardiology was consulted with management. Patient was also noted to have a right lower lobe pneumonia and was placed on azithromycin and Rocephin, as well as COPD exacerbation with nebulizer treatments and steroids. Patient had recently underwent a echocardiogram yesterday which revealed an ejection fraction of 25-30% with systolic function severely decreased. This afternoon, the patient on telemetry was noted to go from a heart rate of 90s to a heart rate subsequently in the 40s. Upon the RN entering the room, she was noted that the patient was unconscious lying supine on the floor with the IVs traumatically removed, from a fall. Initially the patient was in a sinus bradycardia and atropine 1 dose was given. The patient immediately went into PEA arrest, and subsequently underwent 2 rounds of CPR with 2 doses of epinephrine, and ROSC. The patient had been noted to be hypokalemic and was receiving potassium repletion prior to the incident. During the code of note magnesium level was 1.3 and the patient received 2 g of magnesium. The patient was then transferred to CVICU, placed on epinephrine infusion. The patient's mother was notified of events and requests aggressive treatment measures continue to be instituted. Dr. Wright was notified of the events. Critical care medicine is consulted for management and treatment. Subjective: 07/02: Overnight the patient went into PEA arrest, secondary to his cardiogenic shock possibly secondary to stunned myocardium. Bedside echocardiogram showed ejection fraction approximately 10-15%. CVP at that time was 26, aggressive diureses with 80 of Lasix IV was given. Additional vasopressor support was added the patient now is on epinephrine, dobutamine, and norepinephrine for vasopressor support.the patient underwent CPR for approximately 4-5 minutes with ROSC, after 2 rounds of epinephrine bolus, and calcium chloride. CT scan was negative yesterday afternoon, the patient continues on therapeutic Lovenox for atrial fibrillation. This morning, neuro assessment was performed. GCS E4, V1,M6-the patient opened his eyes spontaneously, positive gag and corneal reflexes. Patient follow commands moving bilateral feet, and squeezing left hand. Did not follow commands with right upper extremity. Awaiting neurology recommendations. EEG still pending. 07/03: follows commands this morning. net -4L/24h. still clinically appears volume overloaded. on dobutamine 5 mcg/kg/min. Objective Vital Signs Date Time Temp Pulse Resp B/P Pulse Ox O2 Delivery O2 Flow Rate FiO2 07/03/16 04:00 97.6 91 14 107/64 97 07/03/16 04:00 40 07/03/16 04:00 Mechanical Ventilator 07/01/16 08:42 4.00 Intake and Output 07/02/16 07/02/16 07/03/16 08:00 16:00 00:00 Intake Total 2275 ml 1780 ml Output Total 3350 ml 5860 ml Balance -1075 ml -4080 ml Result Diagram: 07/02/16 0440 07/03/16 0020 Imaging Last Impressions Chest X-Ray 07/01/16 0000 Signed Impressions: Service Date/Time: Friday, July 01, 2016 14:33 - CONCLUSION: Cardiomegaly with diffuse consolidation likely representing edema. Right internal jugular central line with the tip overlying the upper SVC region. Madhav Guy MD Abdomen Ultrasound 07/01/16 0000 Signed Impressions: Service Date/Time: Friday, July 01, 2016 09:33 - CONCLUSION: Small amount of ascites seen around the liver and spleen. This is not large enough to drain. Madhav Guy MD Objective Remarks GENERAL: Morbidly obese male responsive, nodding head yes, spontaneously opening eyes, squeezing my hand upon command. SKIN: Cool and dry HEAD: Atraumatic. Normocephalic. EYES: Pupils equal and round, sluggish but reactive. No scleral icterus. No injection or drainage. ENT: No nasal bleeding or discharge. Mucous membranes pink and moist. NECK: Trachea midline. + JVD Orotracheally intubated CARDIOVASCULAR: Sinus tachycardia, regular rhythm. RESPIRATORY: Mechanical ventilation, noted previously agonal respirations .Clear to auscultation. Breath sounds equal bilaterally. GASTROINTESTINAL: Abdomen soft, non-tender, nondistended. No guarding. MUSCULOSKELETAL: Extremities without clubbing, cyanosis, or edema. No obvious deformities. NEUROLOGICAL: [id number] . GCS 11 T. Patient moving bilateral lower extremities on command, squeezing left hand. Date of Insertion: Jul 01, 2016 Date of Insertion: Jul 01, 2016 Line: Central Venous Catheter Side: Right Location: Internal, Jugular A/P Assessment and Plan This is an unfortunate 45-year-old gentleman, that was found unresponsive on the floor in the hospital room, for unknown period of time.CPR initiated with ROSC, but unknown timing of respiratory arrest/hypoxia. Subsequently the patient went into PEA arrest during the night. Neurologic status has improved with patient following commands x 3 extremities. still persists in cardiogenic shock and acute intravascular volume overload. this is preventing his hypoxic respiratory failure from resolving. he is clearly off pathway and remains critically ill. Neurologic: Possible hypoxic encephalopathy secondary to cardiac arrest Alcohol dependency History of seizure disorder Neurochecks per ICU protocol GCS 11 T propofol for vent synchrony F/U EEG 07/01 CT scan -no acute intracranial abnormality Monitor for signs of alcohol withdrawal Continue thiamine and multivitamin Ativan PRN for withdrawal symptoms Neurology consulted -follow-up recommendations Respiratory: S/P Hypoxic respiratory arrest COPD exacerbation Right lower lobe pneumonia Pulmonary edema Tobacco abuse ABG 7.54/27/101/23/0.5 Mechanical ventilation settings-16/600/.40/10-we'll continue to wean FiO2 to maintain O2 sat greater than 92% CXR 07/01-edema resolving, decrease in left upper lobe opacity, no change in right lung opacity Continue azithromycin, Rocephin (day 4) Bronchodilators every 6 hours schedule every 2 hours when necessary Continue methylprednisolone Ventilator bundle Maintain head of bed 30 Cardiovascular: Cardiomyopathy NSTEMI A. fib RVR PEA arrest Systolic congestive heart failure Echo 06/30-ejection fraction 2530%, aortic valve mild regurgitation, mitral valve mild to moderate regurgitation, systolic function severely diminished, tricuspid valve trace to mild regurgitation Vasopressor support: Dobutamine 5 mcgs/kg/min Cardiology on boardDr. Wright follow-up recommendations Lasix 80mg iv q12h. diamox 500mg iv q8hr -- goal -2L/24h. Renal: Insert Sauer -- Strict I/Os FEN/GI: Hypocalcemia Hyponatremia (chronic? ) Monitor BMP repeat in 4 hours Replete electrolytes per ICU protocol Na level 132, from 131 Heme/ID: Community-acquired Pneumonia, right lower lobe Thrombocytopenia F/U sputum culture Continue azithromycin and Rocephin Monitor CBC f/u todays platelet count. Endocrine: Hyperglycemia of critical illness Glucose monitoring per ICU protocol, low-dose regimen -- SSI Prophylaxis: GI Prophylaxis Pepcid twice a day DVT Prophylaxis -- SCDs Patient on therapeutic Lovenox at 90 mg twice a day Lines: Peripheral IVs 2. Right femoral arterial line, central line right IJ Dispo: remain in the ICU. he remains critically ill in MODS. This patient remains critically ill with one or more organ systems which are or may become a threat to life. I have spent in excess of 39 minutes discontinuously in the care and management of this patient. This time is exclusive of procedures, and includes, but is not limited to, evaluation of the patient, review of the medical record, discussions with family, consultants, nursing staff, or respiratory therapy, and documentation in the medical record. Anil Cade MD Jul 03, 2016 06:44
[2016-07-03 06:54] LABS: HEMATOCRIT 40.9 % (39.0-51.0); MEAN CELL VOLUME 98.7 FL (80.0-100.0); MEAN CORPUSCULAR HEMOGLOBIN 33.1 PG (27.0-34.0); MEAN CORPUSCULAR HGB CONC 33.5 % (32.0-36.0); PLATELET COUNT 71 TH/MM3 (150-450); RED BLOOD COUNT 4.15 MIL/MM3 (4.50-5.90); RED CELL DISTRIBUTION WIDTH 14.7 % (11.6-17.2)
[2016-07-03 07:00] LABS: REVIEW FLAG FINAL
[2016-07-03] MEDS: INSULIN NovoLIN REGULAR SUPPLEMENTAL SCALE SQ SCH ×4 (07:00→21:00)
--- NOTE | 2016-07-03 07:07 | RADRPT ---
EXAM DATE/TIME: 07/03/2016 05:56 [facility] COMPARISON: CHEST SINGLE AP, July 02, 2016, 3:29. INDICATIONS : Evaluate for respiratory failure. MEDICAL HISTORY : Cardiovascular disease. Seizures. SURGICAL HISTORY : None. ENCOUNTER: Subsequent ACUITY: 4 - 6 days PAIN SCORE: Non-responsive. LOCATION: chest FINDINGS: Lines and tubes are present not significantly changed. There is worsening airspace process in the rig ht lung with slight degree of perivascular interstitial process as well probably worsening pulmonary edema. Cardiomegaly has not changed. CONCLUSION: Worsening pulmonary edema, however pneumonia in the right lung base is difficult to exclude. Jorge Mansfield MD on July 03, 2016 at 7:03 Board Certified Radiologist. This report was verified electronically.
[2016-07-03 07:26] LABS: POTASSIUM 3.3 MEQ/L (3.5-5.1)
[2016-07-03] MEDS: POTASSIUM CHLOR 20 MEQ PREMIX 100 ML IV PRN (07:41)
[2016-07-03] MEDS: CHLORHEXIDINE 0.12% (ORAL KIT) 15 ML CUP MT SCH ×2 (07:42→20:00)
[2016-07-03] MEDS: DOBUTamine 250 MG/D5W 250 ML PREMIX DRIP IV SCH ×2 (07:51→14:54)
--- NOTE | 2016-07-03 08:12 | PD.CARD.PN ---
Subjective Subjective Remarks on vent Objective Medications Current Medications Medications (Trade) Dose Ordered Sig/Naren Route Start Time Stop Time Status Last Admin (Tylenol) 650 mg Q4H PRN PO 06/30/16 01:15 (Milk Of Magnesia Liq) 30 ml Q12H PRN PO 06/30/16 01:15 (Lovenox Inj) 90 mg Q12H SQ 06/30/16 13:00 07/02/16 13:45 Naloxone HCl 0.4 mg 0.4 mg UNSCH PRN IV 06/30/16 01:15 Ceftriaxone Sodium 1000 mg/ Sodium Chloride 100 ml @ 200 mls/hr Q24H IV 07/01/16 01:00 07/03/16 01:07 (Zithromax Inj/ NS 250 ml Inj) 250 ml @ 250 mls/hr Q24H IV 07/01/16 01:00 07/03/16 00:37 (SoluMEDROL INJ) 40 mg Q8HR IV PUSH 06/30/16 08:15 07/03/16 06:36 (Vitamin B1) 100 mg DAILY PO 06/30/16 09:00 07/02/16 08:58 (Theragran) 1 tab DAILY PO 06/30/16 09:00 07/02/16 08:57 (Mag-Ox) 400 mg Q12HR PO 06/30/16 16:30 07/02/16 21:10 (Ativan) 1 mg Q4H PRN PO 06/30/16 21:45 07/02/16 09:15 (Lopressor) 50 mg Q8H PO 07/01/16 08:00 Hold 07/01/16 09:33 (Pill Splitter) 1 ea UNSCH PRN OTHER 07/01/16 08:45 (NS Flush) 2 ml UNSCH PRN IV FLUSH 07/01/16 14:45 (NS Flush) 2 ml BID IV FLUSH 07/01/16 21:00 07/02/16 21:12 (Pepcid Inj) 20 mg Q12HR IV PUSH 07/01/16 21:00 07/02/16 21:11 (Tears Naturale Opth Soln) 1 drop TID EACH EYE 07/01/16 18:00 07/02/16 17:20 (Zofran Inj) 4 mg Q6H PRN IV 07/01/16 14:45 (Senokot) 17.2 mg Q12H PRN PO 07/01/16 14:45 Miscellaneous Information 1 1 Q361D XX 07/01/16 14:45 Potassium Chloride 100 ml @ 50 mls/hr Q2H PRN IV 07/01/16 14:45 07/03/16 03:19 Potassium Chloride 100 ml @ 50 mls/hr Q2H PRN IV 07/01/16 14:45 07/02/16 13:44 Potassium Chloride 100 ml @ 25 mls/hr UNSCH PRN IV 07/01/16 14:45 Potassium Chloride 100 ml @ 50 mls/hr Q2H PRN IV 07/01/16 14:45 07/03/16 07:41 (Magnesium Sulfate Inj/NS Inj) 100 ml @ 50 mls/hr UNSCH PRN IV 07/01/16 14:45 Magnesium Oxide 800 mg 800 mg UNSCH PRN PO 07/01/16 14:45 (Magnesium Sulfate Inj/NS Inj) 100 ml @ 50 mls/hr UNSCH PRN IV 07/01/16 14:45 07/02/16 18:13 Potassium Phosphate 2000 mg 2,000 mg Q4H PRN PO 07/01/16 14:45 Sodium Phosphate 30 mmol/Sodium Chloride 250 ml @ 42 mls/hr UNSCH PRN IV 07/01/16 14:45 (Potassium Phosphate Inj/NS 250 ml Inj) 260 ml @ 42 mls/hr UNSCH PRN IV 07/01/16 14:45 Chlorhexidine Gluconate 15 ml 15 ml BID@08,20 MT 07/01/16 20:00 07/03/16 07:42 (Diprivan 1000 Mg/100ml Inj) 100 ml @ 0 mls/hr TITRATE IV 07/01/16 14:45 07/03/16 06:56 (D50w (Vial) Inj) 25 ml UNSCH PRN IV PUSH 07/01/16 14:45 Glucagon 1 mg 1 mg UNSCH PRN OTHER 07/01/16 14:45 Norepinephrine Bitartrate 250 ml @ 0 mls/hr TITRATE IV 07/01/16 22:15 07/02/16 04:05 (DOBUTamine PREMIX DRIP) 250 ml @ 15.33 mls/ hr [id number] IV 07/01/16 22:15 07/03/16 07:51 (Colace Liq) 100 mg Q12HR PO 07/02/16 21:00 07/02/16 21:12 (KCl Powder) 20 meq Q12H PO 07/02/16 21:00 07/02/16 22:49 (Lasix Inj) 80 mg Q12HR IV PUSH 07/03/16 09:00 (Diamox Inj) 500 mg Q8H IV PUSH 07/03/16 08:00 07/04/16 00:01 07/03/16 07:41 Vital Signs / I&O Vital Signs Date Time Temp Pulse Resp B/P Pulse Ox O2 Delivery O2 Flow Rate FiO2 07/03/16 08:02 40 07/03/16 07:25 96 Mechanical Ventilator 40 07/03/16 07:24 96 07/03/16 07:23 98.4 99 14 120/73 96 07/03/16 07:02 97 40 07/03/16 04:00 97.6 91 14 107/64 97 07/03/16 04:00 40 07/03/16 04:00 90 07/03/16 04:00 97 Mechanical Ventilator 40 07/03/16 03:41 99 40 07/03/16 01:50 96 40 07/03/16 00:00 98.4 90 14 122/75 96 114/64 07/03/16 00:00 96 Mechanical Ventilator 40 07/03/16 00:00 90 07/03/16 00:00 40 07/02/16 22:30 97 40 07/02/16 20:30 98 40 07/02/16 20:00 97 Mechanical Ventilator 40 07/02/16 20:00 98.0 91 14 119/88 97 119/71 07/02/16 20:00 40 07/02/16 20:00 90 07/02/16 16:19 40 07/02/16 15:11 97.0 99 14 106/72 100 07/02/16 15:10 100 Mechanical Ventilator 40 07/02/16 15:10 93 07/02/16 15:05 96 40 07/02/16 12:36 94 40 07/02/16 12:03 40 07/02/16 11:04 98.8 99 21 128/72 100 07/02/16 11:03 99 07/02/16 11:02 100 Mechanical Ventilator 40 07/02/16 10:25 40 07/02/16 09:53 99 40 07/02/16 08:21 60 I/O 07/02/16 07/02/16 07/02/16 07/03/16 07/03/16 07/03/16 07:00 15:00 23:00 07:00 15:00 23:00 Intake Total 2275 ml 1780 ml 1955 ml Output Total 3350 ml 5860 ml 7350 ml Balance -1075 ml -4080 ml -5395 ml Intake Oral 0 ml 0 ml IV Total 2275 ml 1780 ml 1955 ml Output Urine Total 3350 ml 5835 ml 7250 ml Gastric Drainage Total 25 ml 100 ml # Bowel Movements 0 0 0 Physical Exam GENERAL: Well developed, well nourished. No acute distress. on vent HEENT: Jugular venous pressure is normal. CHEST: Lungs clear to auscultation bilaterally. Unlabored respiratory effort. CARDIAC: irregular rate and rhythm without S3, S4, or murmur. ABDOMEN: Soft, nontender, no hepatosplenomegaly. Bowel sounds present. EXTREMITIES: No clubbing, cyanosis, 1+ edema. Laboratory Laboratory Tests Test 07/02/16 07/02/16 07/02/16 07/03/16 10:34 13:07 16:28 00:20 Sodium Level 135 MEQ/L 136 MEQ/L 135 MEQ/L Potassium Level 2.9 MEQ/L 3.6 MEQ/L 2.8 MEQ/L Chloride Level 93 MEQ/L 95 MEQ/L 93 MEQ/L Carbon Dioxide Level 32.3 MEQ/L 32.6 MEQ/L 32.5 MEQ/L Anion Gap 10 MEQ/L 8 MEQ/L 10 MEQ/L Blood Urea Nitrogen 19 MG/DL 18 MG/DL 16 MG/DL Creatinine 1.13 MG/DL 0.92 MG/DL 0.92 MG/DL Estimat Glomerular Filtration 70 ML/MIN 89 ML/MIN 89 ML/MIN Rate Random Glucose 181 MG/DL 135 MG/DL 172 MG/DL Calcium Level 7.5 MG/DL 7.1 MG/DL 7.8 MG/DL Phosphorus Level 2.5 MG/DL 2.6 MG/DL 2.7 MG/DL Magnesium Level 1.6 MG/DL 1.6 MG/DL 2.3 MG/DL Troponin I 0.08 NG/ML B-Type Natriuretic Peptide 1195 PG/ML Protein Corrected Calcium 7.3 MG/DL Total Protein 6.7 GM/DL Test 07/03/16 06:25 White Blood Count 7.0 TH/MM3 Red Blood Count 4.15 MIL/MM3 Hemoglobin 13.7 GM/DL Hematocrit 40.9 % Mean Corpuscular Volume 98.7 FL Mean Corpuscular Hemoglobin 33.1 PG Mean Corpuscular Hemoglobin 33.5 % Concent Red Cell Distribution Width 14.7 % Platelet Count 71 TH/MM3 Mean Platelet Volume 8.8 FL Sodium Level 136 MEQ/L Potassium Level 3.3 MEQ/L Chloride Level 95 MEQ/L Carbon Dioxide Level 31.0 MEQ/L Anion Gap 10 MEQ/L Blood Urea Nitrogen 16 MG/DL Creatinine 0.86 MG/DL Estimat Glomerular Filtration 96 ML/MIN Rate Random Glucose 145 MG/DL Calcium Level 7.5 MG/DL Phosphorus Level 2.9 MG/DL Magnesium Level 2.0 MG/DL Assessment and Plan Assessment and Plan s/p arrest x2,- PEA this am, on pressors including dobutamine, now off epi -no overt etiology - ECHO small effusion without evidence of compromise AF- reasonable rate Cardiomyopathy- ETOH vs tachycardia vs ischemia vs other -BP too low for BB or margarito -EF 25 =>35% now, likely secondary to dobutamine CHF acute systolic failure- continue diuresing this am Pneumonia- available PRN this weekend Jerrica Wright MD Jul 03, 2016 08:12
[2016-07-03] MEDS: MULTIVITAMIN TAB PO SCH (09:00)
[2016-07-03] MEDS: SODIUM CHLORIDE 0.9% FLUSH 5 ML FLUSH IV FLUSH SCH ×2 (09:11→22:07)
[2016-07-03] MEDS: POTASSIUM CHLORIDE 20 MEQ PWD PACKET PO SCH ×2 (09:11→21:00)
[2016-07-03] MEDS: ARTIFICIAL TEARS OPTH SOLN 15 ML BTL EACH EYE SCH (09:11)
[2016-07-03] MEDS: DOCUSATE SODIUM 100 MG/10 ML UDC PO SCH ×2 (09:11→22:07)
[2016-07-03] MEDS: FAMOTIDINE 20 MG/2 ML VIAL IV PUSH SCH ×2 (09:11→22:07)
[2016-07-03] MEDS: THIAMINE HCL 100 MG TAB PO SCH (09:12)
[2016-07-03] MEDS: FUROSEMIDE 100 MG/10 ML VIAL IV PUSH SCH ×2 (09:12→22:06)
[2016-07-03] MEDS: MAGNESIUM OXIDE 400 MG TAB PO SCH ×2 (09:12→22:06)
[2016-07-03 09:59] LABS: BLOOD GAS BASE EXCESS 5.7 mmol/L (-2-2); BLOOD GAS HCO3 29 mmol/L (22-26); BLOOD GAS METHEMOGLOBIN 0.8 % (0-2); BLOOD GAS O2 HGB SATURATION 96 % (90-100); BLOOD GAS OXYGEN CONTENT 18.9 Vol % (12.0-20.0); BLOOD GAS PCO2 35 mmHg (38-42); BLOOD GAS PO2 104 mmHg (61-120); BLOOD GAS TOTAL HGB 13.9 G/DL (12.0-16.0); TEMP CORR TO 98.6
[2016-07-03 10:00] LABS: CRITICAL VALUE YES; DRAW SITE ART LINE; FIO2 40 %; OXYGEN DEVICE VENTILATOR; STAT NO; VENT SETTINGS CPAP5PEEP/10PS
--- NOTE | 2016-07-03 10:39 | HHI.CCPN ---
History - Height: 176.53 cm Weight: 89.6 kg Allergies: Coded Allergies: *MDRO Multi-Drug Resistant Organism (Verified Adverse Reaction, Unknown, ) MRSA PCR Screen POSITIVE - 07/02/2016 Major 24 Hour Events 07/03 : The patient remains on 5 mcgs of dobutamine. Sedation vacation begun this morning. CPAP trial successful for several hours. SBT trial obtained. NIF -42, FVC 1.2, TV 498 with positive cuff leak. ABG 7.52/34.9/104/28/5.7. The patient was successfully extubated to nasal cannula 3 L/m with O2 sat of 97% . Drips Drips Dobutamine 5 mcgs Results CBC/BMP: 07/03/16 0625 07/03/16 0625 Micro/ID Microbiology Date/Time Procedure Status Source Growth 07/02/16 00:30 Gram Stain - Final Resulted Sputum Endotracheal 07/02/16 00:30 Sputum Culture Resulted Sputum Endotracheal Pending 06/30/16 01:20 Aerobic Blood Culture - Preliminary Resulted Blood Peripheral NO GROWTH IN 2 DAYS 06/30/16 01:20 Anaerobic Blood Culture - Preliminary Resulted Blood Peripheral NO GROWTH IN 2 DAYS Assessment/Plan Assessment/Plan - PEA arrest S/P cardiogenic shock Acute hypoxic respiratory arrest Patient GCS 11 T, responding to commands CPAP trial successful SBT within normal limits-NIF -42, FVC 1.2, TV 498, positive cuff leak ABG 7.52/34/104/28.8/5.7 Planned extubation Continue duo nebs every 6 hours scheduled, every 2 hours when necessary Continue dobutamine 5 mcgs Assessment neurological status-post extubation, currently oriented to self, not time or place Time Spend with Patient Critical Care Minutes: 35 Joi Silverio MD Jul 03, 2016 10:39
[2016-07-03] MEDS ORDERED: HALOPERIDOL LACTATE 5 MG/ML AMP ONE (13:19)
[2016-07-03] MEDS ORDERED: LORazepam 2 MG/ML VIAL ONE (13:20)
[2016-07-03] MEDS ORDERED: LORazepam 2 MG/ML VIAL IV PUSH ONE ×2 (14:00)
[2016-07-03] MEDS: DEXMEDETOMIDINE INJ 50 ML IV SCH ×2 (16:12→22:06)
--- NOTE | 2016-07-03 20:27 | HHI.PR ---
Subjective Remarks 45 YOWM with VDRF,s/p cardiac arrest X2 Extubated today Diureasing On 4 LNC Confused Objective Vital Signs Vital Signs Date Time Temp Pulse Resp B/P Pulse Ox O2 Delivery O2 Flow Rate FiO2 07/03/16 15:00 109 07/03/16 15:00 98.0 109 17 122/83 97 133/79 07/03/16 15:00 97 Nasal Cannula 4.00 07/03/16 11:05 97.4 113 20 127/75 98 07/03/16 11:02 113 07/03/16 11:02 97 Nasal Cannula 5.00 07/03/16 10:02 97 Nasal Cannula 4.00 07/03/16 09:50 97 Nasal Cannula 4 07/03/16 08:10 40 07/03/16 08:02 40 07/03/16 07:25 96 Mechanical Ventilator 40 07/03/16 07:24 96 07/03/16 07:23 98.4 99 14 120/73 96 07/03/16 07:02 97 40 07/03/16 04:00 97.6 91 14 107/64 97 07/03/16 04:00 40 07/03/16 04:00 90 07/03/16 04:00 97 Mechanical Ventilator 40 07/03/16 03:41 99 40 07/03/16 01:50 96 40 07/03/16 00:00 98.4 90 14 122/75 96 114/64 07/03/16 00:00 96 Mechanical Ventilator 40 07/03/16 00:00 90 07/03/16 00:00 40 07/02/16 22:30 97 40 07/02/16 20:30 98 40 I/O 07/02/16 07/02/16 07/02/16 07/03/16 07/03/16 07/03/16 07:00 15:00 23:00 07:00 15:00 23:00 Intake Total 2275 ml 1780 ml 1955 ml 598 ml Output Total 3350 ml 5860 ml 7350 ml 4835 ml Balance -1075 ml -4080 ml -5395 ml -4237 ml Intake Oral 0 ml 0 ml IV Total 2275 ml 1780 ml 1955 ml 598 ml Output Urine Total 3350 ml 5835 ml 7250 ml 4535 ml Gastric Drainage Total 25 ml 100 ml 300 ml # Bowel Movements 0 0 0 0 Result Diagram: 07/03/16 0625 07/03/16 1600 Objective Remarks GENERAL: WBWN male, on Vent SKIN: Warm and dry. HEAD: Normocephalic. EYES: No scleral icterus. No injection or drainage. NECK: Supple, trachea midline. No JVD or lymphadenopathy. CARDIOVASCULAR: Regular rate and rhythm without murmurs, gallops, or rubs. RESPIRATORY: Breath sounds equal bilaterally. No accessory muscle use. GASTROINTESTINAL: Abdomen soft, non-tender, nondistended. MUSCULOSKELETAL: No cyanosis, or edema. BACK: Nontender without obvious deformity. No CVA tenderness. A/P Assessment and Plan VDRF, s/p extubation 07/03 S/P cardiac arrest CHF AF COPD PLAN: Cont Supplement 02 diurease Monitor lytes on Precedex Tomer Whitlock MD Jul 03, 2016 20:27
[2016-07-04] VITALS (10 sets, daily range): BP systolic 90–119; BP diastolic 47–82; PULSE 81–110; RESP 16–20; TEMP 97.8–98.9; O2SAT 95–99
[2016-07-04] MEDS: cefTRIAXone INJ 1,000 MG in SODIUM CHLORIDE 0.9% INJ 100 ML IV SCH (02:02)
[2016-07-04] MEDS: ENOXAPARIN SODIUM 100 MG/ML SYRINGE SQ SCH ×2 (02:02→10:53)
[2016-07-04] MEDS: AZITHROMYCIN INJ 500 MG in SODIUM CHLOR 0.9% 250 ML INJ 250 ML IV SCH (02:02)
[2016-07-04] MEDS: RESP: ALBUTEROL 2.5 MG/IPRATROPIUM 0.5 MG NEB (SCH) INH ×4 (03:41→21:59)
--- NOTE | 2016-07-04 04:56 | RADRPT ---
EXAM DATE/TIME: 07/04/2016 02:50 [facility] COMPARISON: CHEST SINGLE AP, July 03, 2016, 5:56. INDICATIONS : Shortness of breath, possible pulmonary disease. MEDICAL HISTORY : Cardiovascular disease. Seizures SURGICAL HISTORY : None. ENCOUNTER: Subsequent ACUITY: 1 week PAIN SCORE: Non-responsive. LOCATION: Bilateral chest FINDINGS: Right central line in superior vena cava. Mild basilar airspace disease, improved on the right since July 03. No significant effusion. No pneumothorax. CONCLUSION: 1. Cardiomegaly with mild basilar airspace disease, right greater than left. This is improved from [facility] 17. Right central line in superior vena cava. Patient has been extubated. Eugene Branch MD on July 04, 2016 at 4:54 Board Certified Radiologist. This report was verified electronically.
[2016-07-04 04:57] LABS: HEMATOCRIT 43.6 % (39.0-51.0); MEAN CELL VOLUME 98.8 FL (80.0-100.0); MEAN CORPUSCULAR HEMOGLOBIN 33.3 PG (27.0-34.0); MEAN CORPUSCULAR HGB CONC 33.7 % (32.0-36.0); PLATELET COUNT 80 TH/MM3 (150-450); RED BLOOD COUNT 4.41 MIL/MM3 (4.50-5.90); RED CELL DISTRIBUTION WIDTH 14.5 % (11.6-17.2); WHITE BLOOD COUNT 7.8 TH/MM3 (4.0-11.0)
[2016-07-04 05:17] LABS: REVIEW FLAG FINAL
[2016-07-04 05:35] LABS: BICARBONATE 27.5 MEQ/L (21.0-32.0); MAGNESIUM 1.6 MG/DL (1.5-2.5); POTASSIUM 3.3 MEQ/L (3.5-5.1)
[2016-07-04 06:01] LABS: CALCIUM-PROTEIN CORRECTED 7.2 MG/DL (8.5-10.1)
[2016-07-04] MEDS: INSULIN NovoLIN REGULAR SUPPLEMENTAL SCALE SQ SCH ×4 (06:10→21:00)
[2016-07-04] MEDS: methylPREDNISolone SOD SUCC 40 MG/1 ML VIAL IV PUSH SCH ×3 (06:17→21:08)
[2016-07-04] MEDS: POTASSIUM CHLOR 20 MEQ PREMIX 100 ML IV PRN (06:18)
[2016-07-04] MEDS: DEXMEDETOMIDINE INJ 50 ML IV SCH ×2 (06:33→14:25)
[2016-07-04] MEDS ORDERED: CALCIUM GLUCONATE INJ 2 GM in SODIUM CHLORIDE 0.9% INJ 100 ML IV ONE (07:30)
[2016-07-04] MEDS ORDERED: METOPROLOL TARTRATE 5 MG/5 ML VIAL IV PUSH ONE (07:30)
[2016-07-04] MEDS: MAGNESIUM SULFATE INJ 2 GM in SODIUM CHLORIDE 0.9% INJ 96 ML IV PRN (07:37)
[2016-07-04] MEDS: CHLORHEXIDINE 0.12% (ORAL KIT) 15 ML CUP MT SCH ×2 (08:00→20:00)
[2016-07-04] MEDS: FAMOTIDINE 20 MG/2 ML VIAL IV PUSH SCH ×2 (08:07→21:08)
[2016-07-04] MEDS: FUROSEMIDE 100 MG/10 ML VIAL IV PUSH SCH (08:07)
[2016-07-04] MEDS: MULTIVITAMIN TAB PO SCH (08:22)
[2016-07-04] MEDS: SODIUM CHLORIDE 0.9% FLUSH 5 ML FLUSH IV FLUSH SCH ×2 (08:22→21:09)
[2016-07-04] MEDS: POTASSIUM CHLORIDE 20 MEQ PWD PACKET PO SCH ×2 (08:22→21:00)
[2016-07-04] MEDS: MAGNESIUM OXIDE 400 MG TAB PO SCH ×2 (08:22→21:09)
[2016-07-04] MEDS: THIAMINE HCL 100 MG TAB PO SCH (08:23)
[2016-07-04] MEDS: DOCUSATE SODIUM 100 MG/10 ML UDC PO SCH ×2 (08:23→21:09)
[2016-07-04] MEDS ORDERED: ALTEPLASE RECOMBINANT 2 MG VIAL ONE (08:38)
--- NOTE | 2016-07-04 09:28 | EKG ---
Date Performed: 07/04/2016 Time Performed: 00:37:20 PTAGE: 45 years EKG: Atrial fibrillation with rapid ventricular response Left anterior fascicular block Septal a nd lateral ST-T changes are nonspecific Abnormal ECG Compared to prior electrocardiogram,T-wave samson es have improved. Rhythm is probably unchanged although baseline artifact makes comparison somewhat difficult. PREVIOUS TRACING : 07/01/2016 21.32 DOCTOR: Isaias Machado Interpretating Date/Time 07/04/2016 09:27:03
--- NOTE | 2016-07-04 10:05 | HHI.CCPN ---
Subjective Remarks/Hospital Course The patient is a 45 y/o male with history of COPD and atrial fibrillation who presented to ED, on 06/30/2016 with three week history of sob and cough, described as productive with yellowish sputum. He also presented with complaints of left-sided chest pain with radiation to the right side. he's also complaining of some left sided chest pain. The patient states he was diagnosed with A. fib, and COPD years ago but was noncompliant and did not take any medications secondary to finances. The patient also reported drinking approximately 4 beers a day and is chronic smoker. Since his admission with diagnosis of,NSTEMI, A. fib RVR, cardiology was consulted with management. Patient was also noted to have a right lower lobe pneumonia and was placed on azithromycin and Rocephin, as well as COPD exacerbation with nebulizer treatments and steroids. Patient had recently underwent a echocardiogram yesterday which revealed an ejection fraction of 25-30% with systolic function severely decreased. This afternoon, the patient on telemetry was noted to go from a heart rate of 90s to a heart rate subsequently in the 40s. Upon the RN entering the room, she was noted that the patient was unconscious lying supine on the floor with the IVs traumatically removed, from a fall. Initially the patient was in a sinus bradycardia and atropine 1 dose was given. The patient immediately went into PEA arrest, and subsequently underwent 2 rounds of CPR with 2 doses of epinephrine, and ROSC. The patient had been noted to be hypokalemic and was receiving potassium repletion prior to the incident. During the code of note magnesium level was 1.3 and the patient received 2 g of magnesium. The patient was then transferred to CVICU, placed on epinephrine infusion. The patient's mother was notified of events and requests aggressive treatment measures continue to be instituted. Dr. Wright was notified of the events. Critical care medicine is consulted for management and treatment. Subjective: 07/02: Overnight the patient went into PEA arrest, secondary to his cardiogenic shock possibly secondary to stunned myocardium. Bedside echocardiogram showed ejection fraction approximately 10-15%. CVP at that time was 26, aggressive diureses with 80 of Lasix IV was given. Additional vasopressor support was added the patient now is on epinephrine, dobutamine, and norepinephrine for vasopressor support.the patient underwent CPR for approximately 4-5 minutes with ROSC, after 2 rounds of epinephrine bolus, and calcium chloride. CT scan was negative yesterday afternoon, the patient continues on therapeutic Lovenox for atrial fibrillation. This morning, neuro assessment was performed. GCS E4, V1,M6-the patient opened his eyes spontaneously, positive gag and corneal reflexes. Patient follow commands moving bilateral feet, and squeezing left hand. Did not follow commands with right upper extremity. Awaiting neurology recommendations. EEG still pending. 07/03: follows commands this morning. net -4L/24h. still clinically appears volume overloaded. on dobutamine 5 mcg/kg/min. 07/04: At approximately 12:30 AM the patient had an episode of SVT heart rate [id number] dobutamine was discontinued. Resolution of symptoms spontaneously. The patient has been confused, oriented to self only since extubation yesterday requiring low-dose Precedex 0.1-0.3 mcg/kg/hr., the patient also received Ativan. Continued attempts at weaning, Precedex, with bedside swallow study planned and ice chips, progressing to clear liquid diet. the patient continues to be aggressively diuresed 3.3 L off over the last 12 hours, plans to decrease his Lasix dosage of planned diuresis. Objective Vital Signs Date Time Temp Pulse Resp B/P Pulse Ox O2 Delivery O2 Flow Rate FiO2 07/04/16 09:17 98.0 81 16 106/82 96 106/63 07/04/16 09:17 Nasal Cannula 2.00 07/03/16 08:10 40 Intake and Output 07/03/16 07/03/16 07/04/16 08:00 16:00 00:00 Intake Total 1955 ml 598 ml Output Total 7350 ml 4835 ml Balance -5395 ml -4237 ml Result Diagram: 07/04/16 0435 07/04/16 0435 Imaging Last Impressions Chest X-Ray 07/01/16 0000 Signed Impressions: Service Date/Time: Friday, July 01, 2016 14:33 - CONCLUSION: Cardiomegaly with diffuse consolidation likely representing edema. Right internal jugular central line with the tip overlying the upper SVC region. Madhav Guy MD Abdomen Ultrasound 07/01/16 0000 Signed Impressions: Service Date/Time: Friday, July 01, 2016 09:33 - CONCLUSION: Small amount of ascites seen around the liver and spleen. This is not large enough to drain. Madhav Guy MD Objective Remarks GENERAL: Morbidly obese male responsive, to name not oriented to place or time SKIN: Cool and dry HEAD: Atraumatic. Normocephalic. EYES: Pupils equal and round, sluggish but reactive. No scleral icterus. No injection or drainage. ENT: No nasal bleeding or discharge. Mucous membranes pink and moist. NECK: Trachea midline. O2 at 2 L nasal cannula. No JVD noted CARDIOVASCULAR: Sinus tachycardia, regular rhythm. RESPIRATORY: Mechanical ventilation, noted previously agonal respirations .Clear to auscultation. Breath sounds equal bilaterally. GASTROINTESTINAL: Abdomen soft, non-tender, nondistended. No guarding. MUSCULOSKELETAL: Extremities without clubbing, cyanosis, or edema. No obvious deformities. NEUROLOGICAL: GCS 14. The patient remains confused. Date of Insertion: Jul 01, 2016 Date of Insertion: Jul 01, 2016 Line: Central Venous Catheter Side: Right Location: Internal, Jugular A/P Assessment and Plan This is an unfortunate 45-year-old gentleman, that was found unresponsive on the floor in the hospital room, for unknown period of time.CPR initiated with ROSC, but unknown timing of respiratory arrest/hypoxia. Subsequently the patient went into PEA arrest during the night. Neurologic status has improved with patient following commands x 3 extremities. still persists in cardiogenic shock and acute intravascular volume overload. this is preventing his hypoxic respiratory failure from resolving. he is clearly off pathway and remains critically ill. Neurologic: Possible hypoxic encephalopathy secondary to cardiac arrest Alcohol dependency History of seizure disorder Altered mental status and very to hypoxia? Neurochecks per ICU protocol GCS 14-remains confused Low-dose Precedex F/U EEG 07/01 CT scan -no acute intracranial abnormality Monitor for signs of alcohol withdrawal Continue thiamine and multivitamin Ativan PRN for withdrawal symptoms Neurology consulted , Dr. Castro Respiratory: S/P Hypoxic respiratory arrest COPD exacerbation Right lower lobe pneumonia Pulmonary edema Tobacco abuse ABG 7.54/27/101/23/0.5 Mechanical ventilation settings-16/600/.40/10-we'll continue to wean FiO2 to maintain O2 sat greater than 92% CXR 07/01-edema resolving, decrease in left upper lobe opacity, no change in right lung opacity Bronchodilators every 6 hours schedule every 2 hours when necessary Continue methylprednisolone Ventilator bundle Maintain head of bed 30 Cardiovascular: Cardiomyopathy NSTEMI A. fib RVR PEA arrest Systolic congestive heart failure Echo 06/30-ejection fraction 2530%, aortic valve mild regurgitation, mitral valve mild to moderate regurgitation, systolic function severely diminished, tricuspid valve trace to mild regurgitation Vasopressor support: Dobutamine Dc'd 07/03 Cardiology on boardDr. Wright follow-up recommendations Decrease Lasix 60mg IV q12h. diamox 500mg iv [id number] 07/03 . Renal: Insert Sauer -- Strict I/Os FEN/GI: Hypocalcemia Hyponatremia (chronic? ) Hypokalemia Hypomagnesemia Monitor BMP repeat in 4 hours Replete electrolytes per ICU protocol-magnesium potassium and calcium repleted this a.m. Patient placed on scheduled doses of potassium Heme/ID: Community-acquired Pneumonia, right lower lobe Thrombocytopenia Blood and sputum culture- NGTD Continue azithromycin and Rocephin (day 4) Monitor CBC GI: The patient remains nothing by mouth pulled out his NG tube Planned for weaning of Precedex swallow study advanced to ice chips to progress to clear liquid diet Endocrine: Hyperglycemia of critical illness Glucose monitoring per ICU protocol every 6 hours, low-dose regimen -- SSI Prophylaxis: GI Prophylaxis Pepcid twice a day DVT Prophylaxis -- SCDs Patient on therapeutic Lovenox at 90 mg twice a day Lines: Peripheral IVs 2. Right femoral arterial line, central line right IJ Dispo: Level 3 Contacted mother Ms Hubbard and provided an update on the patients medical status. Physician Joi Nichols MD Jul 04, 2016 10:05 Joi Silverio MD Jul 04, 2016 10:05
[2016-07-04] MEDS ORDERED: LORazepam 2 MG/ML VIAL IM PRN (10:15)
--- NOTE | 2016-07-04 15:31 | HHI.PR ---
Subjective Remarks 45 YOWM with VDRF,s/p cardiac arrest X2 Extubated today Diureasing Confused Weaned to RA Good appetite Objective Vital Signs Vital Signs Date Time Temp Pulse Resp B/P Pulse Ox O2 Delivery O2 Flow Rate FiO2 07/04/16 11:28 94 07/04/16 11:28 95 Room Air 07/04/16 11:26 98.1 87 16 93/49 96 92/58 07/04/16 09:17 98.0 81 16 106/82 96 106/63 07/04/16 09:17 99 Nasal Cannula 2.00 07/04/16 08:00 98 07/04/16 07:12 99 Nasal Cannula 2.00 07/04/16 03:00 97.8 93 20 108/81 99 110/74 07/04/16 03:00 99 Nasal Cannula 2.00 07/04/16 03:00 94 07/03/16 23:00 99 Nasal Cannula 3.00 07/03/16 23:00 116 07/03/16 23:00 99.0 113 20 123/94 92 116/84 07/03/16 20:55 99 Nasal Cannula 4.00 07/03/16 19:00 121 07/03/16 19:00 98.1 115 16 123/68 98 138/86 07/03/16 19:00 99 Nasal Cannula 4.00 I/O 07/03/16 07/03/16 07/03/16 07/04/16 07/04/16 07/04/16 07:00 15:00 23:00 07:00 15:00 23:00 Intake Total 1955 ml 598 ml 703 ml Output Total 7350 ml 4835 ml 3550 ml Balance -5395 ml -4237 ml -2847 ml Intake Oral 0 ml 0 ml IV Total 1955 ml 598 ml 703 ml Output Urine Total 7250 ml 4535 ml 3350 ml Gastric Drainage Total 100 ml 300 ml 200 ml # Bowel Movements 0 0 0 Result Diagram: 07/04/1643407/04/16434 Objective Remarks GENERAL: WBWN male, on Vent SKIN: Warm and dry. HEAD: Normocephalic. EYES: No scleral icterus. No injection or drainage. NECK: Supple, trachea midline. No JVD or lymphadenopathy. CARDIOVASCULAR: Regular rate and rhythm without murmurs, gallops, or rubs. RESPIRATORY: Breath sounds equal bilaterally. No accessory muscle use. GASTROINTESTINAL: Abdomen soft, non-tender, nondistended. MUSCULOSKELETAL: No cyanosis, or edema. BACK: Nontender without obvious deformity. No CVA tenderness. A/P Assessment and Plan VDRF, s/p extubation 07/03 S/P cardiac arrest CHF AF COPD PLAN: diurease Monitor lytes on Precedex Stable on RA Tomer Whitlock MD Jul 04, 2016 15:31
[2016-07-04] MEDS: MAGNESIUM HYDROXIDE SUSP 30 ML CUP PO PRN (17:56)
[2016-07-04] MEDS: LORazepam 2 MG/ML VIAL IM PRN (20:29)
[2016-07-05] VITALS (11 sets, daily range): BP systolic 90–137; BP diastolic 55–88; PULSE 86–143; RESP 16–18; TEMP 98.2–98.8; O2SAT 95–98
[2016-07-05] MEDS: cefTRIAXone INJ 1,000 MG in SODIUM CHLORIDE 0.9% INJ 100 ML IV SCH (00:20)
[2016-07-05] MEDS: AZITHROMYCIN INJ 500 MG in SODIUM CHLOR 0.9% 250 ML INJ 250 ML IV SCH (00:20)
[2016-07-05] MEDS: ENOXAPARIN SODIUM 100 MG/ML SYRINGE SQ SCH ×2 (00:20→10:57)
[2016-07-05] MEDS: LORazepam 2 MG/ML VIAL IM PRN ×5 (03:39→20:46)
[2016-07-05] MEDS: DEXMEDETOMIDINE INJ 50 ML IV SCH (04:18)
[2016-07-05] MEDS: RESP: ALBUTEROL 2.5 MG/IPRATROPIUM 0.5 MG NEB (SCH) INH ×2 (04:21→10:04)
[2016-07-05 04:44] LABS: HEMATOCRIT 43.5 % (39.0-51.0); MEAN CELL VOLUME 99.3 FL (80.0-100.0); MEAN CORPUSCULAR HEMOGLOBIN 33.3 PG (27.0-34.0); MEAN CORPUSCULAR HGB CONC 33.5 % (32.0-36.0); PLATELET COUNT 76 TH/MM3 (150-450); RED BLOOD COUNT 4.38 MIL/MM3 (4.50-5.90); RED CELL DISTRIBUTION WIDTH 14.9 % (11.6-17.2)
[2016-07-05 04:55] LABS: REVIEW FLAG FINAL
[2016-07-05 05:26] LABS: BICARBONATE 26.5 MEQ/L (21.0-32.0); MAGNESIUM 1.8 MG/DL (1.5-2.5); POTASSIUM 3.8 MEQ/L (3.5-5.1)
[2016-07-05] MEDS: methylPREDNISolone SOD SUCC 40 MG/1 ML VIAL IV PUSH SCH ×3 (06:00→20:44)
[2016-07-05] MEDS: INSULIN NovoLIN REGULAR SUPPLEMENTAL SCALE SQ SCH ×4 (07:00→20:45)
[2016-07-05] MEDS: CHLORHEXIDINE 0.12% (ORAL KIT) 15 ML CUP MT SCH ×2 (07:25→20:00)
--- NOTE | 2016-07-05 08:31 | HHI.CCPN ---
Subjective Remarks/Hospital Course The patient is a 45 y/o male with history of COPD and atrial fibrillation who presented to ED, on 06/30/2016 with three week history of sob and cough, described as productive with yellowish sputum. He also presented with complaints of left-sided chest pain with radiation to the right side. he's also complaining of some left sided chest pain. The patient states he was diagnosed with A. fib, and COPD years ago but was noncompliant and did not take any medications secondary to finances. The patient also reported drinking approximately 4 beers a day and is chronic smoker. Since his admission with diagnosis of,NSTEMI, A. fib RVR, cardiology was consulted with management. Patient was also noted to have a right lower lobe pneumonia and was placed on azithromycin and Rocephin, as well as COPD exacerbation with nebulizer treatments and steroids. Patient had recently underwent a echocardiogram yesterday which revealed an ejection fraction of 25-30% with systolic function severely decreased. This afternoon, the patient on telemetry was noted to go from a heart rate of 90s to a heart rate subsequently in the 40s. Upon the RN entering the room, she was noted that the patient was unconscious lying supine on the floor with the IVs traumatically removed, from a fall. Initially the patient was in a sinus bradycardia and atropine 1 dose was given. The patient immediately went into PEA arrest, and subsequently underwent 2 rounds of CPR with 2 doses of epinephrine, and ROSC. The patient had been noted to be hypokalemic and was receiving potassium repletion prior to the incident. During the code of note magnesium level was 1.3 and the patient received 2 g of magnesium. The patient was then transferred to CVICU, placed on epinephrine infusion. The patient's mother was notified of events and requests aggressive treatment measures continue to be instituted. Dr. Wright was notified of the events. Critical care medicine is consulted for management and treatment. Subjective: 07/02: Overnight the patient went into PEA arrest, secondary to his cardiogenic shock possibly secondary to stunned myocardium. Bedside echocardiogram showed ejection fraction approximately 10-15%. CVP at that time was 26, aggressive diureses with 80 of Lasix IV was given. Additional vasopressor support was added the patient now is on epinephrine, dobutamine, and norepinephrine for vasopressor support.the patient underwent CPR for approximately 4-5 minutes with ROSC, after 2 rounds of epinephrine bolus, and calcium chloride. CT scan was negative yesterday afternoon, the patient continues on therapeutic Lovenox for atrial fibrillation. This morning, neuro assessment was performed. GCS E4, V1,M6-the patient opened his eyes spontaneously, positive gag and corneal reflexes. Patient follow commands moving bilateral feet, and squeezing left hand. Did not follow commands with right upper extremity. Awaiting neurology recommendations. EEG still pending. 07/03: follows commands this morning. net -4L/24h. still clinically appears volume overloaded. on dobutamine 5 mcg/kg/min. 07/04: At approximately 12:30 AM the patient had an episode of SVT heart rate [id number] dobutamine was discontinued. Resolution of symptoms spontaneously. The patient has been confused, oriented to self only since extubation yesterday requiring low-dose Precedex 0.1-0.3 mcg/kg/hr., the patient also received Ativan. Continued attempts at weaning, Precedex, with bedside swallow study planned and ice chips, progressing to clear liquid diet. the patient continues to be aggressively diuresed 3.3 L off over the last 12 hours, plans to decrease his Lasix dosage of planned diuresis. 07/05: Patient slightly more compliant today, but still confused. Remains on low -dose Precedex 0.3, will transition to PRN Ativan today, with Librium taper, and with discontinuation of Precedex infusion. The patient tolerating a heart healthy meals. The patient has remained hemodynamically stable and off dobutamine for 24 hours. The patient has been weaned off nasal cannula oxygen and currently O2 sat is 97% on room air. Objective Vital Signs Date Time Temp Pulse Resp B/P Pulse Ox O2 Delivery O2 Flow Rate FiO2 07/05/16 07:52 95 Room Air 07/05/16 07:51 98 07/05/16 07:49 98.2 18 96/78 112/79 07/05/16 07:18 21 07/04/16 16:00 2.00 Intake and Output 07/04/16 07/04/16 07/05/16 08:00 16:00 00:00 Intake Total 703 ml 1436 ml Output Total 3550 ml 3225 ml Balance -2847 ml -1789 ml Result Diagram: 07/05/16 0415 07/05/16 0430 Imaging Last Impressions Chest X-Ray 07/01/16 0000 Signed Impressions: Service Date/Time: Friday, July 01, 2016 14:33 - CONCLUSION: Cardiomegaly with diffuse consolidation likely representing edema. Right internal jugular central line with the tip overlying the upper SVC region. Madhav Guy MD Abdomen Ultrasound 07/01/16 0000 Signed Impressions: Service Date/Time: Friday, July 01, 2016 09:33 - CONCLUSION: Small amount of ascites seen around the liver and spleen. This is not large enough to drain. Madhav Guy MD Objective Remarks GENERAL: Morbidly obese male responsive, to name not oriented to place or time, more compliant SKIN: Cool and dry HEAD: Atraumatic. Normocephalic. EYES: Pupils equal and round, sluggish but reactive. No scleral icterus. No injection or drainage. ENT: No nasal bleeding or discharge. Mucous membranes pink and moist. NECK: Trachea midline. No JVD noted CARDIOVASCULAR: Sinus tachycardia, regular rhythm. RESPIRATORY:Clear to auscultation. Breath sounds equal bilaterally. GASTROINTESTINAL: Abdomen soft, non-tender, nondistended. No guarding. Normoactive bowel sounds MUSCULOSKELETAL: Extremities without clubbing, cyanosis, or edema. No obvious deformities. NEUROLOGICAL: GCS 14. The patient remains confused. Urinary Catheter: Yes Sauer insert reason: ICU Pt Getting Diuretics Date of Insertion: Jul 01, 2016 Date of Insertion: Jul 01, 2016 Line: Central Venous Catheter Side: Right Location: Internal, Jugular A/P Assessment and Plan Neurologic: Possible hypoxic encephalopathy secondary to cardiac arrest Alcohol dependency History of seizure disorder Altered mental status secondary to hypoxia? Neurochecks per ICU protocol GCS 14-remains confused Discontinue Low-dose Precedex F/U EEG 07/01 CT scan -no acute intracranial abnormality Monitor for signs of alcohol withdrawal Continue thiamine and multivitamin Ativan 2 mg every 4 hours PRN for withdrawal symptoms and agitation Begin Librium taper 50 mg every 6 hrs day 1, followed by 25mg q 6 hrs day 2, and day 3 Neurology consulted , Dr. Castro Respiratory: S/P Hypoxic respiratory arrest COPD exacerbation Right lower lobe pneumonia Pulmonary edema-resolved Tobacco abuse Maintain O2 sat greater than 92% CXR 07/01-edema resolving, decrease in left upper lobe opacity, no change in right lung opacity Bronchodilators every 6 hours schedule every 2 hours when necessary Continue methylprednisolone Encourage incentive spirometry Maintain head of bed 30 Patient counseled on smoking cessation Cardiovascular: Cardiomyopathy NSTEMI A. fib RVR PEA arrest Systolic congestive heart failure Echo 06/30-ejection fraction 2530%, aortic valve mild regurgitation, mitral valve mild to moderate regurgitation, systolic function severely diminished, tricuspid valve trace to mild regurgitation Vasopressor support: Dobutamine Dc'd 07/03 Cardiology on boardDr. Wright follow-up recommendations Decrease Lasix 40mg IV q12h. diamox 500mg iv [id number] 07/03 Normotensive-MAP 70's D/C femoral arterial line D/C CVP monitoring . Renal: Sauer-1000 cc urine output over the last 12 hours -- Strict I/Os FEN/GI: Hypocalcemia Hyponatremia (chronic? ) Hypokalemia Hypomagnesemia Monitor BMP repeat in 4 hours Replete electrolytes per ICU protocol Continue scheduled doses of potassium Heme/ID: Community-acquired Pneumonia, right lower lobe Thrombocytopenia Blood and sputum culture- NGTD Continue azithromycin and Rocephin (day 5) Monitor CBC GI: Successful swallow study Continue heart healthy diet Bowel regimen Endocrine: Hyperglycemia of critical illness Glucose monitoring per ICU protocol every 6 hours, low-dose regimen -- SSI Prophylaxis: GI Prophylaxis Pepcid twice a day DVT Prophylaxis -- SCDs Patient on therapeutic Lovenox at 90 mg twice a day Lines: Peripheral IVs 2.central line right IJ (day 4) Dispo: Level 2 Contacted mother Ms Hubbard and provided an update on the patients medical status. Plan transfer to [facility]. Consider transfer to [facility]. Physician Joi Nichols MD Jul 05, 2016 08:31
[2016-07-05] MEDS: FUROSEMIDE 100 MG/10 ML VIAL IV PUSH SCH ×2 (08:39→20:44)
[2016-07-05] MEDS: FAMOTIDINE 20 MG/2 ML VIAL IV PUSH SCH ×2 (08:39→20:44)
[2016-07-05] MEDS: DOCUSATE SODIUM 100 MG/10 ML UDC PO SCH ×2 (08:39→20:43)
[2016-07-05] MEDS: SODIUM CHLORIDE 0.9% FLUSH 5 ML FLUSH IV FLUSH SCH ×2 (08:39→20:44)
[2016-07-05] MEDS: MULTIVITAMIN TAB PO SCH (08:40)
[2016-07-05] MEDS: MAGNESIUM OXIDE 400 MG TAB PO SCH ×2 (08:40→20:45)
[2016-07-05] MEDS: THIAMINE HCL 100 MG TAB PO SCH (08:40)
[2016-07-05] MEDS: POTASSIUM CHLORIDE 20 MEQ PWD PACKET PO SCH ×2 (08:40→20:44)
[2016-07-05] MEDS: chlordiazePOXIDE 25 MG CAP PO SCH ×5 (11:44→22:35)
--- NOTE | 2016-07-05 16:46 | HHI.PR ---
Subjective Remarks 45 YOWM with VDRF,s/p cardiac arrest X2 Extubated Diureasing Confused Weaned to RA Good appetite Off Precedex Objective Vital Signs Vital Signs Date Time Temp Pulse Resp B/P Pulse Ox O2 Delivery O2 Flow Rate FiO2 07/05/16 15:38 98.4 100 18 92/55 96 07/05/16 15:00 100 07/05/16 11:12 96 Room Air 07/05/16 11:07 98.5 86 18 90/59 96 Arterial Line 07/05/16 11:00 110 07/05/16 07:52 95 Room Air 07/05/16 07:51 98 07/05/16 07:49 98.2 86 18 96/78 96 112/79 07/05/16 07:18 95 21 07/05/16 03:00 87 07/05/16 03:00 98.4 110 18 97/78 95 111/74 07/05/16 03:00 95 Room Air 07/04/16 23:00 98.9 110 18 102/75 96 119/72 07/04/16 23:00 94 Room Air 07/04/16 23:00 110 07/04/16 22:00 95 21 07/04/16 19:00 96 07/04/16 19:00 98.0 86 18 91/70 96 101/70 07/04/16 19:00 94 Room Air I/O 07/04/16 07/04/16 07/04/16 07/05/16 07/05/16 07/05/16 07:00 15:00 23:00 07:00 15:00 23:00 Intake Total 703 ml 1436 ml 852 ml Output Total 3550 ml 3225 ml 910 ml Balance -2847 ml -1789 ml -58 ml Intake Oral 0 ml 960 ml 420 ml IV Total 703 ml 476 ml 432 ml Output Urine Total 3350 ml 3225 ml 910 ml Gastric Drainage Total 200 ml # Bowel Movements 0 0 0 Result Diagram: 07/05/16 0415 07/05/16 0430 Objective Remarks GENERAL: WBWN male, on Vent SKIN: Warm and dry. HEAD: Normocephalic. EYES: No scleral icterus. No injection or drainage. NECK: Supple, trachea midline. No JVD or lymphadenopathy. CARDIOVASCULAR: Regular rate and rhythm without murmurs, gallops, or rubs. RESPIRATORY: Breath sounds equal bilaterally. No accessory muscle use. GASTROINTESTINAL: Abdomen soft, non-tender, nondistended. MUSCULOSKELETAL: No cyanosis, or edema. BACK: Nontender without obvious deformity. No CVA tenderness. A/P Assessment and Plan VDRF, s/p extubation 07/03 S/P cardiac arrest CHF AF COPD PLAN: diurease Monitor lytes off Precedex Stable on RA Tomer Whitlock MD Jul 05, 2016 16:46
[2016-07-06] VITALS (7 sets, daily range): BP systolic 87–112; BP diastolic 53–73; PULSE 107–129; RESP 16–33; TEMP 98–99.3; O2SAT 90–97
[2016-07-06] MEDS: cefTRIAXone INJ 1,000 MG in SODIUM CHLORIDE 0.9% INJ 100 ML IV SCH (00:43)
[2016-07-06] MEDS: AZITHROMYCIN INJ 500 MG in SODIUM CHLOR 0.9% 250 ML INJ 250 ML IV SCH (00:43)
[2016-07-06] MEDS: ENOXAPARIN SODIUM 100 MG/ML SYRINGE SQ SCH ×2 (00:43→12:54)
[2016-07-06 04:54] LABS: HEMATOCRIT 46.2 % (39.0-51.0); MEAN CELL VOLUME 98.9 FL (80.0-100.0); MEAN CORPUSCULAR HGB CONC 34.4 % (32.0-36.0); PLATELET COUNT 122 TH/MM3 (150-450); RED BLOOD COUNT 4.67 MIL/MM3 (4.50-5.90); RED CELL DISTRIBUTION WIDTH 14.8 % (11.6-17.2); REVIEW FLAG FINAL; WHITE BLOOD COUNT 9.8 TH/MM3 (4.0-11.0)
[2016-07-06 05:25] LABS: BICARBONATE 29.1 MEQ/L (21.0-32.0); MAGNESIUM 1.6 MG/DL (1.5-2.5); POTASSIUM 3.6 MEQ/L (3.5-5.1)
[2016-07-06] MEDS: chlordiazePOXIDE 25 MG CAP PO SCH ×4 (05:39→21:27)
[2016-07-06] MEDS: methylPREDNISolone SOD SUCC 40 MG/1 ML VIAL IV PUSH SCH ×3 (05:40→21:27)
[2016-07-06] MEDS: INSULIN NovoLIN REGULAR SUPPLEMENTAL SCALE SQ SCH ×4 (06:43→20:55)
[2016-07-06] MEDS: MAGNESIUM SULFATE INJ 2 GM in SODIUM CHLORIDE 0.9% INJ 96 ML IV PRN (07:30)
[2016-07-06] MEDS: CHLORHEXIDINE 0.12% (ORAL KIT) 15 ML CUP MT SCH ×2 (08:00→20:00)
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
[2016-07-06] MEDS: SODIUM CHLORIDE 0.9% FLUSH 5 ML FLUSH IV FLUSH SCH ×2 (08:54→21:04)
[2016-07-06] MEDS: POTASSIUM CHLORIDE 20 MEQ PWD PACKET PO SCH ×2 (08:55→20:55)
[2016-07-06] MEDS: FAMOTIDINE 20 MG/2 ML VIAL IV PUSH SCH ×2 (08:55→21:01)
[2016-07-06] MEDS: LORazepam 2 MG/ML VIAL IM PRN (08:55)
[2016-07-06] MEDS: FUROSEMIDE 100 MG/10 ML VIAL IV PUSH SCH ×2 (08:55→21:02)
[2016-07-06] MEDS: DOCUSATE SODIUM 100 MG/10 ML UDC PO SCH ×2 (08:55→20:56)
[2016-07-06] MEDS: MAGNESIUM OXIDE 400 MG TAB PO SCH ×2 (08:56→20:52)
[2016-07-06] MEDS: THIAMINE HCL 100 MG TAB PO SCH (08:56)
[2016-07-06] MEDS: MULTIVITAMIN TAB PO SCH (08:56)
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
[2016-07-06] MEDS ORDERED: LORazepam 1 MG TAB PO PRN (12:45)
[2016-07-06] MEDS ORDERED: LORazepam 2 MG TAB PO PRN (12:45)
[2016-07-06] MEDS ORDERED: FLUMAZENIL 0.5 MG/5 ML VIAL IV PUSH PRN (12:45)
[2016-07-06] MEDS ORDERED: LORazepam 2 MG/ML VIAL IV PUSH PRN ×3 (12:45)
[2016-07-06] MEDS: LORazepam 2 MG/ML VIAL IV PUSH PRN ×2 (18:29→21:28)
--- NOTE | 2016-07-06 19:54 | HHI.PR ---
Subjective Remarks 45 YOWM with VDRF,s/p cardiac arrest X2 Extubated Diureasing Weaned to RA Good appetite Gets agitated at times No fever or chills Objective Vital Signs Vital Signs Date Time Temp Pulse Resp B/P Pulse Ox O2 Delivery O2 Flow Rate FiO2 07/06/16 15:00 98.4 110 21 87/59 93 07/06/16 15:00 110 07/06/16 15:00 93 Room Air 07/06/16 11:00 111 07/06/16 11:00 98.5 111 17 101/53 96 07/06/16 11:00 96 Room Air 07/06/16 07:22 107 07/06/16 07:22 98.6 115 17 95/63 95 07/06/16 07:21 95 Room Air 07/06/16 03:42 98.0 115 16 112/70 97 07/06/16 03:42 115 07/06/16 03:42 97 Room Air 07/05/16 23:17 97 Room Air 07/05/16 23:17 98.6 134 16 137/88 97 07/05/16 23:17 143 I/O 07/05/16 07/05/16 07/05/16 07/06/16 07/06/16 07/06/16 07:00 15:00 23:00 07:00 15:00 23:00 Intake Total 852 ml 1250 ml 550 ml 110 ml Output Total 910 ml 2350 ml 2400 ml 900 ml Balance -58 ml -1100 ml -1850 ml -790 ml Intake Oral 420 ml 1200 ml 100 ml 100 ml IV Total 432 ml 50 ml 450 ml 10 ml Output Urine Total 910 ml 2350 ml 2400 ml 900 ml # Bowel Movements 0 0 0 0 Result Diagram: 07/06/16 0428 07/06/16 0428 Objective Remarks GENERAL: WBWN male, on Vent SKIN: Warm and dry. HEAD: Normocephalic. EYES: No scleral icterus. No injection or drainage. NECK: Supple, trachea midline. No JVD or lymphadenopathy. CARDIOVASCULAR: Regular rate and rhythm without murmurs, gallops, or rubs. RESPIRATORY: Breath sounds equal bilaterally. No accessory muscle use. GASTROINTESTINAL: Abdomen soft, non-tender, nondistended. MUSCULOSKELETAL: No cyanosis, or edema. BACK: Nontender without obvious deformity. No CVA tenderness. A/P Assessment and Plan VDRF, s/p extubation 07/03 S/P cardiac arrest CHF AF COPD PLAN: diurease Monitor lytes off Precedex Stable on RA Encourage PO intake Tomer Whitlock MD Jul 06, 2016 19:54
[2016-07-07] VITALS (8 sets, daily range): BP systolic 91–103; BP diastolic 59–80; PULSE 97–129; RESP 18–25; TEMP 97.2–99.3; O2SAT 93–95
[2016-07-07] MEDS: cefTRIAXone INJ 1,000 MG in SODIUM CHLORIDE 0.9% INJ 100 ML IV SCH (01:43)
[2016-07-07] MEDS: ENOXAPARIN SODIUM 100 MG/ML SYRINGE SQ SCH ×2 (01:44→11:37)
[2016-07-07] MEDS: AZITHROMYCIN INJ 500 MG in SODIUM CHLOR 0.9% 250 ML INJ 250 ML IV SCH (01:44)
[2016-07-07] MEDS: chlordiazePOXIDE 25 MG CAP PO SCH ×4 (05:00→21:29)
[2016-07-07 05:48] LABS: HEMATOCRIT 47.5 % (39.0-51.0); MEAN CELL VOLUME 99.6 FL (80.0-100.0); MEAN CORPUSCULAR HEMOGLOBIN 33.8 PG (27.0-34.0); MEAN CORPUSCULAR HGB CONC 33.9 % (32.0-36.0); PLATELET COUNT 130 TH/MM3 (150-450); RED BLOOD COUNT 4.77 MIL/MM3 (4.50-5.90); RED CELL DISTRIBUTION WIDTH 14.5 % (11.6-17.2); REVIEW FLAG FINAL; WHITE BLOOD COUNT 8.4 TH/MM3 (4.0-11.0)
[2016-07-07 05:54] LABS: BICARBONATE 29.3 MEQ/L (21.0-32.0); POTASSIUM 3.8 MEQ/L (3.5-5.1)
[2016-07-07] MEDS: INSULIN NovoLIN REGULAR SUPPLEMENTAL SCALE SQ SCH ×4 (06:42→21:00)
[2016-07-07] MEDS: methylPREDNISolone SOD SUCC 40 MG/1 ML VIAL IV PUSH SCH (07:40)
[2016-07-07] MEDS: CHLORHEXIDINE 0.12% (ORAL KIT) 15 ML CUP MT SCH ×2 (08:00→20:00)
[2016-07-07] MEDS: POTASSIUM CHLORIDE 20 MEQ PWD PACKET PO SCH ×2 (09:00→21:00)
[2016-07-07] MEDS: THIAMINE HCL 100 MG TAB PO SCH (09:38)
[2016-07-07] MEDS: FAMOTIDINE 20 MG/2 ML VIAL IV PUSH SCH ×2 (09:38→21:17)
[2016-07-07] MEDS: MULTIVITAMIN TAB PO SCH (09:38)
[2016-07-07] MEDS: FUROSEMIDE 100 MG/10 ML VIAL IV PUSH SCH ×2 (09:38→21:15)
[2016-07-07] MEDS: MAGNESIUM OXIDE 400 MG TAB PO SCH ×2 (09:38→21:20)
[2016-07-07] MEDS: DOCUSATE SODIUM 100 MG/10 ML UDC PO SCH ×2 (09:39→21:18)
[2016-07-07] MEDS: SODIUM CHLORIDE 0.9% FLUSH 5 ML FLUSH IV FLUSH SCH ×2 (09:39→21:15)
--- NOTE | 2016-07-07 10:47 | HHI.PR ---
Subjective Remarks f/u for encephalopathy and multiple medical issues. patient seen while he was doing PT. Patient is following commands. he is able to tell me his name and location. Cannot tell me date. He had no complaints. No acute events overnight. Objective Vitals Vital Signs Date Time Temp Pulse Resp B/P Pulse Ox O2 Delivery O2 Flow Rate FiO2 07/07/16 07:00 100 07/07/16 07:00 98.0 97 18 102/68 95 07/07/16 07:00 93 Room Air 07/07/16 03:00 99.3 100 20 91/64 93 07/07/16 03:00 100 07/07/16 03:00 93 Room Air 07/06/16 23:00 90 Room Air 07/06/16 23:00 129 07/06/16 23:00 99.3 129 22 111/73 90 07/06/16 20:38 92 21 07/06/16 19:00 90 Room Air 07/06/16 19:00 111 07/06/16 19:00 98.1 111 33 100/67 90 07/06/16 15:00 98.4 110 21 87/59 93 07/06/16 15:00 110 07/06/16 15:00 93 Room Air 07/06/16 11:00 111 07/06/16 11:00 98.5 111 17 101/53 96 07/06/16 11:00 96 Room Air I/O 07/06/16 07/06/16 07/06/16 07/07/16 07/07/16 07/07/16 07:00 15:00 23:00 07:00 15:00 23:00 Intake Total 550 ml 110 ml 100 ml 364 ml Output Total 2400 ml 900 ml 1225 ml 500 ml Balance -1850 ml -790 ml -1125 ml -136 ml Intake Oral 100 ml 100 ml 100 ml IV Total 450 ml 10 ml 364 ml Output Urine Total 2400 ml 900 ml 1225 ml 500 ml # Bowel Movements 0 0 Result Diagram: 07/07/1644007/07/16440 Objective Remarks GENERAL: disheveled male in NAD. CARDIOVASCULAR: Regular rate and rhythm without murmurs, gallops, or rubs. RESPIRATORY: Breath sounds equal bilaterally but patient does not take any deep inspiration for me. No accessory muscle use. GASTROINTESTINAL: Abdomen soft, non-tender, nondistended. NEURO: AAO X 2. patient is up and follow commands from PT. Medications and IVs Current Medications Aspirin (Aspirin) 325 mg ONCE ONCE PO Last administered on 06/29/16 23:58; Start 06/29/16 at 23:45; Stop 06/29/16 at 23:46; Status DC IV Flush (NS Flush) 2 ml UNSCH PRN IVF FLUSH AFTER USING IV ACCESS; Start 06/29 at 23:45; Stop 07/01/16 at 15:01; Status DC Nitroglycerin (Nitrostat Sl) 0.4 mg Q5M SL Last administered on 06/29/16 00:05 ; Start 06/29/16 at 23:45; Stop 06/29/16 at 23:56; Status DC Albuterol/ Ipratropium 1 ampule 1 ampule Q15M INH Last administered on 00:09; Start 06/29/16 at 23:45; Stop 06/30/16 at 00:16; Status DC Diltiazem HCl/ Sodium Chloride (Cardizem Inj/NS Inj) 125 ml @ 0 mls/hr TITRATE IV Last administered on 06/30/16 19:33; Start 06/29/16 at 23:45; Stop at 15:40; Status DC Diltiazem HCl 23 mg 23 mg BOLUS ONCE IV PUSH ; Start 06/29/16 at 23:45; Stop at 23:46; Status DC Ceftriaxone Sodium 1000 mg/ Sodium Chloride 100 ml @ 200 mls/hr ONCE ONCE IV Last administered on 06/30/16 01:20; Start 06/30/16 at 01:00; Stop 06/30/16 at 01:29; Status DC Azithromycin/ Sodium Chloride (Zithromax Inj/ NS 250 ml Inj) 250 ml @ 250 mls/ hr ONCE ONCE IV Last administered on 06/30/16 04:13; Start 06/30/16 at 01:00 ; Stop 06/30/16 at 01:59; Status DC Aspirin (Aspirin) 325 mg ONCE ONCE PO ; Start 06/30/16 at 01:00; Stop 06/30/16 at 01:01; Status DC Nitroglycerin (Nitroglycerin 2% Oint) 1 inch ONCE ONCE TOP Last administered on 06/30/16 01:20; Start 06/30/16 at 01:00; Stop 06/30/16 at 01:01; Status DC Enoxaparin Sodium (Lovenox Inj) 90 mg ONCE ONCE SQ Last administered on 01:20; Start 06/30/16 at 01:00; Stop 06/30/16 at 01:01; Status DC Furosemide 40 mg 40 mg ONCE ONCE IV PUSH Last administered on 06/30/16 01:20 ; Start 06/30/16 at 01:00; Stop 06/30/16 at 01:01; Status DC Calcium Gluconate 1 gm/Dextrose 110 ml @ 110 mls/hr ONCE ONCE IV Last administered on 06/30/16 02:12; Start 06/30/16 at 01:00; Stop 06/30/16 at 01:59 ; Status DC Magnesium Sulfate/ Dextrose 100 ml @ 100 mls/hr Q1H IV Last administered on 02:12; Start 06/30/16 at 01:00; Stop 06/30/16 at 02:59; Status DC Sodium Chloride (NS 1000 ml Inj) 1,000 ml @ 100 mls/hr Q10H IV Last administered on 07/01/16 02:05; Start 06/30/16 at 01:09; Stop 07/01/16 at 15:02 ; Status DC Acetaminophen (Tylenol) 650 mg Q4H PRN PO TEMP > 100.4; Start 06/30/16 at 01:15 Ondansetron HCl (Zofran Inj) 4 mg Q6H PRN IVP NAUSEA OR VOMITING Last administered on 06/30/16 17:26; Start 06/30/16 at 01:15; Stop 07/01/16 at 15:03 ; Status DC Magnesium Hydroxide (Milk Of Magnesia Liq) 30 ml Q12H PRN PO CONSTIPATION Last administered on 07/04/16 17:56; Start 06/30/16 at 01:15 Enoxaparin Sodium (Lovenox Inj) 90 mg Q12H SQ Last administered on 07/07/16 01 :44; Start 06/30/16 at 13:00 Naloxone HCl 0.4 mg 0.4 mg UNSCH PRN IV SEE LABEL COMMENTS; Start 06/30/16 at 01:15 Ceftriaxone Sodium 1000 mg/ Sodium Chloride 100 ml @ 200 mls/hr Q24H IV Last administered on 07/07/16 01:43; Start 07/01/16 at 01:00 Azithromycin/ Sodium Chloride (Zithromax Inj/ NS 250 ml Inj) 250 ml @ 250 mls/ hr Q24H IV Last administered on 07/07/16 01:44; Start 07/01/16 at 01:00 Methylprednisolone Sodium Succinate (SoluMEDROL INJ) 40 mg Q8HR IV PUSH Last administered on 07/07/16 07:40; Start 06/30/16 at 08:15 Potassium Chloride (KCl) 40 meq ONCE ONCE PO Last administered on 06/30/16 09 :05; Start 06/30/16 at 08:30; Stop 06/30/16 at 08:33; Status DC Potassium Chloride (KCl) 20 meq ONCE ONCE PO Last administered on 06/30/16 11 :56; Start 06/30/16 at 12:00; Stop 06/30/16 at 12:01; Status DC Thiamine HCl (Vitamin B1) 100 mg DAILY PO Last administered on 07/07/16 09:38 ; Start 06/30/16 at 09:00 Multivitamins (Theragran) 1 tab DAILY PO Last administered on 07/07/16 09:38; Start 06/30/16 at 09:00 Lorazepam (Ativan Inj) 1 mg Q4H PRN IV PUSH ANXIETY Last administered on 17:26; Start 06/30/16 at 08:30; Stop 07/01/16 at 15:43; Status DC Albuterol/ Ipratropium (Duoneb Neb) 1 ampule Q6HR NEB NEB Last administered on 07/01/16 08:42; Start 06/30/16 at 10:00; Stop 07/01/16 at 09:00; Status DC Albuterol Sulfate (Albuterol Neb) 1.25 mg Q2HR NEB PRN NEB SHORTNESS OF BREATH Last administered on 07/01/16 01:35; Start 06/30/16 at 08:30; Stop 07/01/16 at 14:55; Status DC Diltiazem HCl 120 mg 120 mg DAILY PO Last administered on 06/30/16 11:55; Start 06/30/16 at 10:15; Stop 07/01/16 at 07:35; Status DC Calcium Gluconate/ Dextrose (Calcium Gluconate Inj/D5W 100 ml Inj) 110 ml @ 110 mls/hr ONCE ONCE IV Last administered on 06/30/16 17:25; Start 06/30/16 at 18:00; Stop 06/30/16 at 18:59; Status DC Magnesium Oxide (Mag-Ox) 400 mg Q12HR PO Last administered on 07/07/16 09:38; Start 06/30/16 at 16:30 Flumazenil (Romazicon Inj) 0.2 mg Q1M PRN IV PUSH SEE LABEL COMMENTS; Start at 21:45; Stop 07/03/16 at 06:40; Status DC Lorazepam (Ativan) 1 mg Q4H PRN PO CIWA 8 - 10 Last administered on 07/02/16 09:15; Start 06/30/16 at 21:45; Stop 07/04/16 at 10:09; Status DC Lorazepam (Ativan Inj) 1 mg Q4H PRN IV PUSH CIWA 8 - 10; Start 06/30/16 at 21: 45; Stop 07/01/16 at 15:43; Status DC Lorazepam (Ativan) 2 mg Q2H PRN PO CIWA 11-14; Start 06/30/16 at 21:45; Stop at 15:43; Status DC Lorazepam (Ativan Inj) 2 mg Q2H PRN IV PUSH CIWA 11-14 Last administered on 21:51; Start 06/30/16 at 21:45; Stop 07/01/16 at 15:43; Status DC Lorazepam (Ativan Inj) 2 mg Q1H PRN IV PUSH CIWA 15-20; Start 06/30/16 at 21:45 ; Stop 07/01/16 at 15:43; Status DC Lorazepam (Ativan Inj) 2 mg Q15M PRN IV PUSH CIWA > 20; Start 06/30/16 at 21:45 ; Stop 07/01/16 at 15:43; Status DC Metoprolol Tartrate (Lopressor) 50 mg Q8H PO Last administered on 07/01/16 09: 33; Start 07/01/16 at 08:00; Status Hold Furosemide (Lasix) 40 mg BID@09,18 PO Last administered on 07/01/16 09:34; Start 07/01/16 at 09:00; Stop 07/03/16 at 06:40; Status DC Potassium Chloride (KCl) 20 meq Q12HR PO Last administered on 07/02/16 08:57; Start 07/01/16 at 09:00; Stop 07/02/16 at 20:23; Status DC Lisinopril (Prinivil) 2.5 mg DAILY PO Last administered on 07/01/16 09:33; Start 07/01/16 at 09:00; Stop 07/01/16 at 15:42; Status DC Miscellaneous (Pill Splitter) 1 ea UNSCH PRN OTHER SEE LABEL COMMENTS; Start at 08:45 Epinephrine HCl (Adrenalin (1:1000) Inj) 4 mg STK-MED ONCE .ROUTE ; Start at 13:44; Stop 07/01/16 at 13:45; Status DC Epinephrine HCl 1 mg 1 mg STK-MED ONCE .ROUTE ; Start 07/01/16 at 13:48; Stop at 13:49; Status DC Propofol (Diprivan 1000 Mg/100ml Inj) 100 ml @ As Directed STK-MED ONCE .ROUTE Last administered on 07/01/16 14:31; Start 07/01/16 at 14:31; Stop 07/01/16 at 14:32; Status DC Sodium Bicarbonate 100 meq 100 meq STK-MED ONCE .ROUTE Last administered on 17:41; Start 07/01/16 at 14:34; Stop 07/01/16 at 14:35; Status DC Sodium Chloride (NS 1000 ml Inj) 1,000 ml @ 50 mls/hr Q20H IV Last administered on 07/01/16 17:47; Start 07/01/16 at 14:38; Stop 07/02/16 at 08:04 ; Status DC IV Flush (NS Flush) 2 ml UNSCH PRN IV FLUSH FLUSH AFTER USING IV ACCESS; Start 07/01/16 at 14:45 IV Flush (NS Flush) 2 ml BID IV FLUSH Last administered on 07/07/16 09:39; Start 07/01/16 at 21:00 Famotidine (Pepcid Inj) 20 mg Q12HR IV PUSH Last administered on 07/07/16 09: 38; Start 07/01/16 at 21:00 Artificial Tears (Tears Naturale Opth Soln) 1 drop TID EACH EYE Last administered on 07/03/16 09:11; Start 07/01/16 at 18:00; Stop 07/03/16 at 10:44 ; Status DC Ondansetron HCl (Zofran Inj) 4 mg Q6H PRN IV NAUSEA OR VOMITING; Start at 14:45 Docusate Sodium (Colace) 100 mg Q12H PO Last administered on 07/02/16 14:45; Start 07/01/16 at 14:45; Stop 07/02/16 at 20:18; Status DC Sennosides (Senokot) 17.2 mg Q12H PRN PO CONSTIPATION; Start 07/01/16 at 14:45 Albuterol/ Ipratropium (Duoneb Neb) 1 ampule Q6HR NEB INH Last administered on 07/05/16 10:04; Start 07/01/16 at 16:00; Stop 07/05/16 at 16:00; Status DC Albuterol/ Ipratropium (Duoneb Neb) 1 ampule Q2HR NEB PRN INH WHEEZING; Start 07/01/16 at 14:45 Miscellaneous Information 1 1 [id number] XX ; Start 07/01/16 at 14:45 Potassium Chloride 100 ml @ 50 mls/hr Q2H PRN IV For Potassium 2.8 - 3.2 mEq/ L Last administered on 07/03/16 19:02; Start 07/01/16 at 14:45 Potassium Chloride 100 ml @ 50 mls/hr Q2H PRN IV For Potassium 2.8 - 3.2 mEq/ L Last administered on 07/02/16 13:44; Start 07/01/16 at 14:45 Potassium Chloride 100 ml @ 25 mls/hr UNSCH PRN IV For Potassium 3.3 - 3.5 mEq /L; Start 07/01/16 at 14:45 Potassium Chloride 100 ml @ 50 mls/hr Q2H PRN IV For Potassium 3.3 - 3.5 mEq/ L Last administered on 07/04/16 06:18; Start 07/01/16 at 14:45 Magnesium Sulfate/ Sodium Chloride (Magnesium Sulfate Inj/NS Inj) 100 ml @ 50 mls/hr UNSCH PRN IV For Magnesium 0.9 - 1.1 mg/dL; Start 07/01/16 at 14:45 Magnesium Oxide 800 mg 800 mg UNSCH PRN PO For Magnesium 1.2 - 1.6 mg/dL; Start 07/01/16 at 14:45 Magnesium Sulfate/ Sodium Chloride (Magnesium Sulfate Inj/NS Inj) 100 ml @ 50 mls/hr UNSCH PRN IV For Magnesium 1.2 - 1.6 mg/dL Last administered on 07:30; Start 07/01/16 at 14:45 Potassium Phosphate 2000 mg 2,000 mg Q4H PRN PO For Phosphorus < 2.5 mg/dL; Start 07/01/16 at 14:45 Sodium Phosphate 30 mmol/Sodium Chloride 250 ml @ 42 mls/hr UNSCH PRN IV For Phosphorus < 2.5 mg/dL; Start 07/01/16 at 14:45 Potassium Phosphate/Sodium Chloride (Potassium Phosphate Inj/NS 250 ml Inj) 260 ml @ 42 mls/hr UNSCH PRN IV SEE LABEL COMMENTS; Start 07/01/16 at 14:45 Chlorhexidine Gluconate 15 ml 15 ml BID@08,20 MT Last administered on 20:00; Start 07/01/16 at 20:00 Propofol (Diprivan 1000 Mg/100ml Inj) 100 ml @ 0 mls/hr TITRATE IV Last administered on 07/03/16 06:56; Start 07/01/16 at 14:45; Stop 07/03/16 at 10:44 ; Status DC Dextrose (D50w (Vial) Inj) 25 ml UNSCH PRN IV PUSH HYPOGLYCEMIA-SEE COMMENTS; Start 07/01/16 at 14:45 Glucagon (Glucagon Inj) 1 mg UNSCH PRN OTHER HYPOGLYCEMIA-SEE COMMENTS; Start 07/01/16 at 14:45 Insulin Human Regular 1 1 ACHS SLIDING SCALE SQ Last administered on 20:55; Start 07/01/16 at 16:00 Dobutamine HCl/ Dextrose 250 ml @ As Directed STK-MED ONCE .ROUTE Last administered on 07/01/16 17:46; Start 07/01/16 at 16:59; Stop 07/01/16 at 17:00 ; Status DC Sodium Bicarbonate 50 ml @ As Directed STK-MED ONCE .ROUTE Last administered on 07/01/16 17:46; Start 07/01/16 at 17:15; Stop 07/01/16 at 17:16; Status DC Norepinephrine Bitartrate 250 ml @ As Directed STK-MED ONCE IV ; Start at 19:59; Stop 07/01/16 at 20:00; Status DC Diltiazem HCl 125 mg/Sodium Chloride 125 ml @ 0 mls/hr TITRATE IV ; Start at 20:30; Stop 07/03/16 at 06:40; Status DC Dobutamine HCl/ Dextrose (DOBUTamine PREMIX DRIP) 250 ml @ As Directed STK-MED ONCE .ROUTE Last administered on 07/01/16 21:59; Start 07/01/16 at 20:57; Stop 07/01/16 at 20:58; Status DC Atropine Sulfate 1 mg 1 mg STK-MED ONCE .ROUTE ; Start 07/01/16 at 21:01; Stop 07/01/16 at 21:02; Status DC Norepinephrine Bitartrate 250 ml @ 0 mls/hr TITRATE IV Last administered on 04:05; Start 07/01/16 at 22:15; Stop 07/04/16 at 10:09; Status DC Dobutamine HCl/ Dextrose (DOBUTamine PREMIX DRIP) 250 ml @ 15.33 mls/ hr [id number] IV Last administered on 07/03/16 14:54; Start 07/01/16 at 22:15; Stop 07/04/16 at 07:24; Status DC Calcium Chloride (Calcium Chloride Inj) 1 gm ONCE ONCE IV PUSH Last administered on 07/02/16 04:07; Start 07/02/16 at 03:15; Stop 07/02/16 at 03:16 ; Status DC Furosemide 80 mg 80 mg ONCE ONCE IV PUSH Last administered on 07/02/16 04:07 ; Start 07/02/16 at 03:15; Stop 07/02/16 at 03:16; Status DC Epinephrine HCl/ Dextrose (Adrenalin (1:1000) Inj/D5W Inj) 252 ml @ 0 mls/hr TITRATE IV Last administered on 07/02/16 04:48; Start 07/02/16 at 04:45; Stop 07/03/16 at 06:41; Status DC Furosemide 40 mg 40 mg Q12H IV PUSH ; Start 07/02/16 at 20:00; Stop 07/03/16 at 06:41; Status DC Magnesium Sulfate/ Dextrose (Magnesium Sulfate 1 Gm Premix) 100 ml @ As Directed STK-MED ONCE .ROUTE ; Start 07/02/16 at 17:53; Stop 07/02/16 at 17:54; Status DC Furosemide 80 mg 80 mg NOW ONCE IV PUSH Last administered on 07/02/16 21:10; Start 07/02/16 at 21:00; Stop 07/02/16 at 21:01; Status DC Calcium Chloride/ Sodium Chloride (Calcium Chloride Inj/NS Inj) 110 ml @ 110 mls/hr NOW ONCE IV Last administered on 07/02/16 21:13; Start 07/02/16 at 21: 00; Stop 07/02/16 at 21:59; Status DC Acetazolamide Sodium (Diamox Inj) 500 mg NOW ONCE IV Last administered on 07/02 21:12; Start 07/02/16 at 21:00; Stop 07/02/16 at 21:01; Status DC Docusate Sodium (Colace Liq) 100 mg Q12HR PO Last administered on 07/07/16 09: 39; Start 07/02/16 at 21:00 Potassium Chloride 20 meq 20 meq Q12H PO Last administered on 07/07/16 09:00; Start 07/02/16 at 21:00 Magnesium Sulfate/ Dextrose (Magnesium Sulfate 1 Gm Premix) 100 ml @ 100 mls/ hr Q1H IV Last administered on 07/02/16 23:30; Start 07/02/16 at 22:30; Stop 07/03/16 at 00:29; Status DC Furosemide (Lasix Inj) 80 mg Q12HR IV PUSH Last administered on 07/04/16 08:07 ; Start 07/03/16 at 09:00; Stop 07/05/16 at 08:19; Status DC Acetazolamide Sodium (Diamox Inj) 500 mg Q8H IV PUSH Last administered on 07:41; Start 07/03/16 at 08:00; Stop 07/03/16 at 10:45; Status DC Haloperidol Lactate (Haldol Inj) 5 mg STK-MED ONCE .ROUTE ; Start 07/03/16 at 13 :19; Stop 07/03/16 at 13:20; Status DC Lorazepam (Ativan Inj) 2 mg STK-MED ONCE .ROUTE ; Start 07/03/16 at 13:20; Stop 07/03/16 at 13:21; Status DC Lorazepam (Ativan Inj) 1 mg ONCE ONCE IV PUSH Last administered on 07/03/16 13:57; Start 07/03/16 at 14:00; Stop 07/03/16 at 14:01; Status DC Lorazepam 1 mg 1 mg ONCE ONCE IV PUSH ; Start 07/03/16 at 14:00; Stop 07/03/16 at 14:01; Status DC Dexmedetomidine HCl 50 ml @ 0 mls/hr TITRATE IV Last administered on 07/05/16 04:18; Start 07/03/16 at 13:30 Calcium Gluconate/ Sodium Chloride (Calcium Gluconate Inj/NS Inj) 120 ml @ 60 mls/hr NOW ONCE IV Last administered on 07/04/16 07:37; Start 07/04/16 at 07: 30; Stop 07/04/16 at 09:29; Status DC Metoprolol Tartrate (Lopressor Inj) 2.5 mg NOW ONCE IV PUSH Last administered on 07/04/16 08:05; Start 07/04/16 at 07:30; Stop 07/04/16 at 07:31; Status DC Alteplase, Recombinant (Cathflo Activase Inj) 4 mg STK-MED ONCE .ROUTE Last administered on 07/04/16 10:42; Start 07/04/16 at 08:38; Stop 07/04/16 at 08:39 ; Status DC Lorazepam (Ativan Inj) 1 mg Q4H PRN IM MOD - SEVERE ANXIETY/AGITATION; Start at 10:15; Stop 07/04/16 at 17:45; Status DC Lorazepam (Ativan Inj) 1 mg Q4H PRN IM ANXIETY AND/OR AGITATION Last administered on 07/05/16 03:39; Start 07/04/16 at 17:45; Stop 07/05/16 at 08:20 ; Status DC Furosemide (Lasix Inj) 40 mg Q12HR IV PUSH Last administered on 07/07/16 09:38 ; Start 07/05/16 at 09:00 Lorazepam (Ativan Inj) 2 mg Q4H PRN IM ANXIETY AND/OR AGITATION Last administered on 07/06/16 08:55; Start 07/05/16 at 09:45 Chlordiazepoxide (Librium) 50 mg Q6H PO Last administered on 07/06/16 11:00; Start 07/05/16 at 11:00; Stop 07/06/16 at 11:01; Status DC Chlordiazepoxide (Librium) 25 mg Q6H PO Last administered on 07/06/16 21:27; Start 07/06/16 at 17:00; Stop 07/08/16 at 11:01 Flumazenil (Romazicon Inj) 0.2 mg Q1M PRN IV PUSH SEE LABEL COMMENTS; Start at 12:45 Lorazepam (Ativan) 1 mg Q4H PRN PO CIWA 8 - 10; Start 07/06/16 at 12:45 Lorazepam (Ativan Inj) 1 mg Q4H PRN IV PUSH CIWA 8 - 10 Last administered on 21:28; Start 07/06/16 at 12:45 Lorazepam (Ativan) 2 mg Q2H PRN PO CIWA 11-14; Start 07/06/16 at 12:45 Lorazepam (Ativan Inj) 2 mg Q2H PRN IV PUSH CIWA 11-14; Start 07/06/16 at 12:45 Lorazepam (Ativan Inj) 2 mg Q1H PRN IV PUSH CIWA 15-20; Start 07/06/16 at 12:45 Lorazepam (Ativan Inj) 2 mg Q15M PRN IV PUSH CIWA > 20 Last administered on 12:51; Start 07/06/16 at 12:45 Date of Insertion: Jul 01, 2016 Date of Insertion: Jul 01, 2016 Line: Central Venous Catheter Side: Right Location: Internal, Jugular A/P Problem List: (1) Atrial fibrillation with RVR ICD Code: I48.91 Status: Acute (2) PNA (pneumonia) ICD Code: J18.9 Status: Acute (3) COPD exacerbation ICD Code: J44.1 Status: Acute (4) Elevated troponin ICD Code: R74.8 Status: Acute Assessment and Plan Possible hypoxic encephalopathy secondary to cardiac arrest Alcohol dependency History of seizure disorder Altered mental status secondary to hypoxia? Neurochecks confusing is improving. s/p Precedex treatment. F/U EEG 07/01 CT scan -no acute intracranial abnormality Monitor for signs of alcohol withdrawal Continue thiamine and multivitamin Ativan 2 mg every 4 hours PRN for withdrawal symptoms and agitation on Librium taper 25 mg. 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 Encourage incentive spirometry Patient counseled on smoking cessation sputum great MRSA so will d/c Rocephin and azithromycin and start Bactrim. will also switch to PO prednisone 20 mg PO BID. Cardiomyopathy NSTEMI A. fib RVR PEA arrest Systolic congestive heart failure Echo 06/30-ejection fraction 2530%, aortic valve mild regurgitation, mitral valve mild to moderate regurgitation, systolic function severely diminished, tricuspid valve trace to mild regurgitation Vasopressor support: Dobutamine Dc'd 07/03 Cardiology on boardDr. Wright follow-up recommendations Decrease Lasix 40mg IV q12h. diamox 500mg iv [id number] 07/03 Normotensive-MAP 70's Hypocalcemia Hyponatremia (chronic? ) Hypokalemia Hypomagnesemia replenish as needed Thrombocytopenia no signs of bleeding. due to alcoholism Monitor CBC GI Prophylaxis Pepcid twice a day DVT Prophylaxis -- SCDs Discharge Planning patient confusion is improving. he is homeless and self paid so he will need aggressive PT in house since patient cannot go to SNF. Problem Qualifiers (1) PNA (pneumonia): Qualified Code: J18.1 - Pneumonia of right lower lobe due to infectious organism Quin Long MD Jul 07, 2016 10:47
[2016-07-07] MEDS: SULFAMETHOXAZOLE-TRIMETHOPRIM DS 800-160 MG TAB PO SCH ×2 (11:37→21:18)
--- NOTE | 2016-07-07 19:05 | HHI.PR ---
Subjective Remarks 45 YOWM with VDRF,s/p cardiac arrest X2 Extubated Weaned to RA Good appetite Gets agitated at times No fever or chills Tolerates PO, needs assistance feeding Objective Vital Signs Vital Signs Date Time Temp Pulse Resp B/P Pulse Ox O2 Delivery O2 Flow Rate FiO2 07/07/16 15:00 97.2 108 18 95/59 93 07/07/16 15:00 93 Room Air 07/07/16 15:00 108 07/07/16 14:00 114 07/07/16 14:00 94 Room Air 07/07/16 11:14 98.7 105 20 94/68 95 07/07/16 11:00 96 Room Air 07/07/16 11:00 105 07/07/16 07:00 100 07/07/16 07:00 98.0 97 18 102/68 95 07/07/16 07:00 93 Room Air 07/07/16 03:00 99.3 100 20 91/64 93 07/07/16 03:00 100 07/07/16 03:00 93 Room Air 07/06/16 23:00 90 Room Air 07/06/16 23:00 129 07/06/16 23:00 99.3 129 22 111/73 90 07/06/16 20:38 92 21 I/O 07/06/16 07/06/16 07/06/16 07/07/16 07/07/16 07/07/16 07:00 15:00 23:00 07:00 15:00 23:00 Intake Total 550 ml 110 ml 100 ml 364 ml 145 ml Output Total 2400 ml 900 ml 1225 ml 500 ml 1000 ml Balance -1850 ml -790 ml -1125 ml -136 ml -855 ml Intake Oral 100 ml 100 ml 100 ml 100 ml IV Total 450 ml 10 ml 364 ml 45 ml Output Urine Total 2400 ml 900 ml 1225 ml 500 ml 1000 ml # Bowel Movements 0 0 0 Result Diagram: [id number]/07/1644007/[id number] Objective Remarks GENERAL: WBWN male, on Vent SKIN: Warm and dry. HEAD: Normocephalic. EYES: No scleral icterus. No injection or drainage. NECK: Supple, trachea midline. No JVD or lymphadenopathy. CARDIOVASCULAR: Regular rate and rhythm without murmurs, gallops, or rubs. RESPIRATORY: Breath sounds equal bilaterally. No accessory muscle use. GASTROINTESTINAL: Abdomen soft, non-tender, nondistended. MUSCULOSKELETAL: No cyanosis, or edema. BACK: Nontender without obvious deformity. No CVA tenderness. A/P Assessment and Plan VDRF, s/p extubation 07/03 S/P cardiac arrest CHF AF COPD PLAN: Monitor lytes off Precedex Stable on RA Encourage PO intake PO Tomer Birmingham MD Jul 07, 2016 19:05
[2016-07-07] MEDS: predniSONE 20 MG TAB PO SCH (21:18)
[2016-07-07] MEDS: LORazepam 2 MG/ML VIAL IV PUSH PRN (21:28)
[2016-07-08] VITALS (9 sets, daily range): BP systolic 90–104; BP diastolic 62–79; PULSE 99–125; RESP 14–26; TEMP 97.8–98.7; O2SAT 92–96
[2016-07-08] MEDS: ENOXAPARIN SODIUM 100 MG/ML SYRINGE SQ SCH ×2 (01:49→12:06)
[2016-07-08] MEDS: chlordiazePOXIDE 25 MG CAP PO SCH ×2 (05:07→12:06)
[2016-07-08 05:08] LABS: HEMATOCRIT 46.7 % (39.0-51.0); MEAN CORPUSCULAR HEMOGLOBIN 33.4 PG (27.0-34.0); MEAN CORPUSCULAR HGB CONC 33.7 % (32.0-36.0); PLATELET COUNT 143 TH/MM3 (150-450); RED BLOOD COUNT 4.72 MIL/MM3 (4.50-5.90); RED CELL DISTRIBUTION WIDTH 14.3 % (11.6-17.2); REVIEW FLAG FINAL; WHITE BLOOD COUNT 8.1 TH/MM3 (4.0-11.0)
[2016-07-08] MEDS: INSULIN NovoLIN REGULAR SUPPLEMENTAL SCALE SQ SCH ×4 (05:09→20:14)
[2016-07-08 05:34] LABS: BICARBONATE 29.3 MEQ/L (21.0-32.0); MAGNESIUM 1.7 MG/DL (1.5-2.5); POTASSIUM 3.7 MEQ/L (3.5-5.1)
--- NOTE | 2016-07-08 06:40 | PD.CARD.PN ---
Subjective Subjective Remarks PT without complaints, in restraints Objective Medications Current Medications Medications (Trade) Dose Ordered Sig/Naren Route Start Time Stop Time Status Last Admin (Tylenol) 650 mg Q4H PRN PO 06/30/16 01:15 (Milk Of Magnesia Liq) 30 ml Q12H PRN PO 06/30/16 01:15 07/04/16 17:56 (Lovenox Inj) 90 mg Q12H SQ 06/30/16 13:00 07/08/16 01:49 (Narcan Inj) 0.4 mg UNSCH PRN IV 06/30/16 01:15 (Vitamin B1) 100 mg DAILY PO 06/30/16 09:00 07/07/16 09:38 (Theragran) 1 tab DAILY PO 06/30/16 09:00 07/07/16 09:38 (Mag-Ox) 400 mg Q12HR PO 06/30/16 16:30 07/07/16 21:20 (Lopressor) 50 mg Q8H PO 07/01/16 08:00 Hold 07/01/16 09:33 (Pill Splitter) 1 ea UNSCH PRN OTHER 07/01/16 08:45 (NS Flush) 2 ml UNSCH PRN IV FLUSH 07/01/16 14:45 (NS Flush) 2 ml BID IV FLUSH 07/01/16 21:00 07/07/16 21:15 (Pepcid Inj) 20 mg Q12HR IV PUSH 07/01/16 21:00 07/07/16 21:17 (Zofran Inj) 4 mg Q6H PRN IV 07/01/16 14:45 (Senokot) 17.2 mg Q12H PRN PO 07/01/16 14:45 Miscellaneous Information 1 1 [id number] XX 07/01/16 14:45 Potassium Chloride 100 ml @ 50 mls/hr Q2H PRN IV 07/01/16 14:45 07/03/16 19:02 Potassium Chloride 100 ml @ 50 mls/hr Q2H PRN IV 07/01/16 14:45 07/02/16 13:44 Potassium Chloride 100 ml @ 25 mls/hr UNSCH PRN IV 07/01/16 14:45 Potassium Chloride 100 ml @ 50 mls/hr Q2H PRN IV 07/01/16 14:45 07/04/16 06:18 (Magnesium Sulfate Inj/NS Inj) 100 ml @ 50 mls/hr UNSCH PRN IV 07/01/16 14:45 Magnesium Oxide 800 mg 800 mg UNSCH PRN PO 07/01/16 14:45 (Magnesium Sulfate Inj/NS Inj) 100 ml @ 50 mls/hr UNSCH PRN IV 07/01/16 14:45 07/06/16 07:30 Potassium Phosphate 2000 mg 2,000 mg Q4H PRN PO 07/01/16 14:45 Sodium Phosphate 30 mmol/Sodium Chloride 250 ml @ 42 mls/hr UNSCH PRN IV 07/01/16 14:45 (Potassium Phosphate Inj/NS 250 ml Inj) 260 ml @ 42 mls/hr UNSCH PRN IV 07/01/16 14:45 (Peridex 0.12% Liq) 15 ml BID@08,20 MT 07/01/16 20:00 07/03/16 20:00 (D50w (Vial) Inj) 25 ml UNSCH PRN IV PUSH 07/01/16 14:45 (Glucagon Inj) 1 mg UNSCH PRN OTHER 07/01/16 14:45 (Colace Liq) 100 mg Q12HR PO 07/02/16 21:00 07/07/16 21:18 Potassium Chloride 20 meq 20 meq Q12H PO 07/02/16 21:00 07/07/16 21:00 (Precedex Inj) 50 ml @ 0 mls/hr TITRATE IV 07/03/16 13:30 07/05/16 04:18 (Lasix Inj) 40 mg Q12HR IV PUSH 07/05/16 09:00 07/07/16 21:15 (Ativan Inj) 2 mg Q4H PRN IM 07/05/16 09:45 07/06/16 08:55 (Librium) 25 mg Q6H PO 07/06/16 17:00 07/08/16 11:01 07/08/16 05:07 (Romazicon Inj) 0.2 mg Q1M PRN IV PUSH 07/06/16 12:45 (Ativan) 1 mg Q4H PRN PO 07/06/16 12:45 (Ativan Inj) 1 mg Q4H PRN IV PUSH 07/06/16 12:45 07/07/16 21:28 (Ativan) 2 mg Q2H PRN PO 07/06/16 12:45 07/07/16 13:08 (Ativan Inj) 2 mg Q2H PRN IV PUSH 07/06/16 12:45 07/07/16 14:21 (Ativan Inj) 2 mg Q1H PRN IV PUSH 07/06/16 12:45 (Ativan Inj) 2 mg Q15M PRN IV PUSH 07/06/16 12:45 07/06/16 12:51 (Bactrim Ds 800-160 Mg) 1 tab Q12HR PO 07/07/16 10:45 07/07/16 21:18 (Deltasone) 20 mg BID PO 07/07/16 21:00 07/07/16 21:18 Vital Signs / I&O Vital Signs Date Time Temp Pulse Resp B/P Pulse Ox O2 Delivery O2 Flow Rate FiO2 07/08/16 03:00 98.7 103 15 104/72 92 07/08/16 03:00 103 07/08/16 03:00 92 Room Air 07/07/16 23:00 129 07/07/16 23:00 98.7 129 20 103/80 93 07/07/16 23:00 93 Room Air 07/07/16 19:00 93 Room Air 07/07/16 19:00 98.6 118 25 103/63 93 07/07/16 19:00 118 07/07/16 15:00 97.2 108 18 95/59 93 07/07/16 15:00 93 Room Air 07/07/16 15:00 108 07/07/16 14:00 114 07/07/16 14:00 94 Room Air 07/07/16 11:14 98.7 105 20 94/68 95 07/07/16 11:00 96 Room Air 07/07/16 11:00 105 07/07/16 07:00 100 07/07/16 07:00 98.0 97 18 102/68 95 07/07/16 07:00 93 Room Air I/O 07/07/16 07/07/16 07/07/16 07/08/16 07/08/16 07/08/16 07:00 15:00 23:00 07:00 15:00 23:00 Intake Total 364 ml 145 ml 134 ml Output Total 500 ml 1000 ml 910 ml Balance -136 ml -855 ml -776 ml Intake Oral 100 ml 100 ml IV Total 364 ml 45 ml 34 ml Output Urine Total 500 ml 1000 ml 910 ml # Bowel Movements 0 0 Physical Exam GENERAL: NAD, A&O to person and BD only HEENT: Jugular venous pressure is normal. CHEST: Lungs decreased to auscultation bilaterally. Unlabored respiratory effort. CARDIAC: irregular rate and rhythm without S3, S4, or murmur. ABDOMEN: Soft, nontender, Bowel sounds present. EXTREMITIES: No clubbing, cyanosis, edema. Laboratory Laboratory Tests Test 07/08/16 04:29 White Blood Count 8.1 TH/MM3 Red Blood Count 4.72 MIL/MM3 Hemoglobin 15.8 GM/DL Hematocrit 46.7 % Mean Corpuscular Volume 99.0 FL Mean Corpuscular Hemoglobin 33.4 PG Mean Corpuscular Hemoglobin 33.7 % Concent Red Cell Distribution Width 14.3 % Platelet Count 143 TH/MM3 Mean Platelet Volume 8.2 FL Sodium Level 143 MEQ/L Potassium Level 3.7 MEQ/L Chloride Level 105 MEQ/L Carbon Dioxide Level 29.3 MEQ/L Anion Gap 9 MEQ/L Blood Urea Nitrogen 38 MG/DL Creatinine 0.84 MG/DL Estimat Glomerular Filtration 98 ML/MIN Rate Random Glucose 104 MG/DL Calcium Level 8.6 MG/DL Magnesium Level 1.7 MG/DL Assessment and Plan Assessment and Plan s/p arrest x2,- PEA -no overt cardiac etiology -this would be very unusual for ischemia without antecedent CP/ ST changes -he is a poor/not a revasc candidate with his prior noncompliance and now very confused; in restraints AF- acceptable rate control given his sBP in 90's -anticoagulation per primary team Cardiomyopathy- ETOH vs tachycardia vs ischemia vs other -BP remains too low for BB or margarito -EF 25 =>35% CHF acute systolic failure- reasonably compensated; change to PO lasix/potassium Pneumonia- per primary team Confusion- per primary team, ok for floors tele from CV perspective Jerrica Wright MD Jul 08, 2016 06:40 Jerrica Wright MD Jul 08, 2016 06:40
[2016-07-08] MEDS: CHLORHEXIDINE 0.12% (ORAL KIT) 15 ML CUP MT SCH ×2 (08:00→20:00)
[2016-07-08] MEDS: THIAMINE HCL 100 MG TAB PO SCH (08:44)
[2016-07-08] MEDS: DOCUSATE SODIUM 100 MG/10 ML UDC PO SCH ×2 (08:44→20:14)
[2016-07-08] MEDS: FUROSEMIDE 40 MG TAB PO SCH ×2 (08:45→18:04)
[2016-07-08] MEDS: POTASSIUM CHLORIDE 20 MEQ CONTROLLED RELEASE TAB PO SCH ×2 (08:45→20:14)
[2016-07-08] MEDS: MULTIVITAMIN TAB PO SCH (08:45)
[2016-07-08] MEDS: SULFAMETHOXAZOLE-TRIMETHOPRIM DS 800-160 MG TAB PO SCH ×2 (08:45→20:13)
[2016-07-08] MEDS: FAMOTIDINE 20 MG/2 ML VIAL IV PUSH SCH ×2 (08:45→20:11)
[2016-07-08] MEDS: MAGNESIUM OXIDE 400 MG TAB PO SCH ×2 (08:45→20:14)
[2016-07-08] MEDS: predniSONE 20 MG TAB PO SCH ×2 (08:45→20:14)
[2016-07-08] MEDS: SODIUM CHLORIDE 0.9% FLUSH 5 ML FLUSH IV FLUSH SCH ×2 (08:46→20:11)
[2016-07-08] MEDS: LORazepam 2 MG/ML VIAL IM PRN ×2 (08:58→22:44)
--- NOTE | 2016-07-08 16:43 | HHI.PR ---
Subjective Remarks f/u for encephalopathy. patient is AAO X 1. He can give me his name. He denied any SOB. He has no complaints. When I was leaving his room he did say to me to not leave him. Otherwise no acute events since he was last seen. Objective Vitals Vital Signs Date Time Temp Pulse Resp B/P Pulse Ox O2 Delivery O2 Flow Rate FiO2 07/08/16 11:00 98.7 109 18 90/62 92 07/08/16 11:00 92 Room Air 07/08/16 11:00 105 07/08/16 09:37 93 21 07/08/16 07:00 98.7 99 15 104/79 92 07/08/16 07:00 108 07/08/16 07:00 92 Room Air 07/08/16 03:00 98.7 103 15 104/72 92 07/08/16 03:00 103 07/08/16 03:00 92 Room Air 07/07/16 23:00 129 07/07/16 23:00 98.7 129 20 103/80 93 07/07/16 23:00 93 Room Air 07/07/16 19:00 93 Room Air 07/07/16 19:00 98.6 118 25 103/63 93 07/07/16 19:00 118 I/O 07/07/16 07/07/16 07/07/16 07/08/16 07/08/16 07/08/16 07:00 15:00 23:00 07:00 15:00 23:00 Intake Total 364 ml 145 ml 134 ml 136 ml 180 ml Output Total 500 ml 1000 ml 910 ml 925 ml 1800 ml Balance -136 ml -855 ml -776 ml -789 ml -1620 ml Intake Oral 100 ml 100 ml 100 ml 180 ml IV Total 364 ml 45 ml 34 ml 36 ml Output Urine Total 500 ml 1000 ml 910 ml 925 ml 1800 ml # Bowel Movements 0 0 0 Result Diagram: 07/08/1642807/08/16428 Objective Remarks GENERAL: disheveled male in NAD. CARDIOVASCULAR: Regular rate and rhythm without murmurs, gallops, or rubs. RESPIRATORY: Breath sounds equal bilaterally but patient does not take any deep inspiration for me. No accessory muscle use. GASTROINTESTINAL: Abdomen soft, non-tender, nondistended. NEURO: AAO X 1. Patient follow commands and can answer questions. Medications and IVs Current Medications Aspirin (Aspirin) 325 mg ONCE ONCE PO Last administered on 06/29/16 23:58; Start 06/29/16 at 23:45; Stop 06/29/16 at 23:46; Status DC IV Flush (NS Flush) 2 ml UNSCH PRN IVF FLUSH AFTER USING IV ACCESS; Start 06/29 at 23:45; Stop 07/01/16 at 15:01; Status DC Nitroglycerin (Nitrostat Sl) 0.4 mg Q5M SL Last administered on 06/29/16 00:05 ; Start 06/29/16 at 23:45; Stop 06/29/16 at 23:56; Status DC Albuterol/ Ipratropium 1 ampule 1 ampule Q15M INH Last administered on 00:09; Start 06/29/16 at 23:45; Stop 06/30/16 at 00:16; Status DC Diltiazem HCl/ Sodium Chloride (Cardizem Inj/NS Inj) 125 ml @ 0 mls/hr TITRATE IV Last administered on 06/30/16 19:33; Start 06/29/16 at 23:45; Stop at 15:40; Status DC Diltiazem HCl 23 mg 23 mg BOLUS ONCE IV PUSH ; Start 06/29/16 at 23:45; Stop at 23:46; Status DC Ceftriaxone Sodium 1000 mg/ Sodium Chloride 100 ml @ 200 mls/hr ONCE ONCE IV Last administered on 06/30/16 01:20; Start 06/30/16 at 01:00; Stop 06/30/16 at 01:29; Status DC Azithromycin/ Sodium Chloride (Zithromax Inj/ NS 250 ml Inj) 250 ml @ 250 mls/ hr ONCE ONCE IV Last administered on 06/30/16 04:13; Start 06/30/16 at 01:00 ; Stop 06/30/16 at 01:59; Status DC Aspirin (Aspirin) 325 mg ONCE ONCE PO ; Start 06/30/16 at 01:00; Stop 06/30/16 at 01:01; Status DC Nitroglycerin (Nitroglycerin 2% Oint) 1 inch ONCE ONCE TOP Last administered on 06/30/16 01:20; Start 06/30/16 at 01:00; Stop 06/30/16 at 01:01; Status DC Enoxaparin Sodium (Lovenox Inj) 90 mg ONCE ONCE SQ Last administered on 01:20; Start 06/30/16 at 01:00; Stop 06/30/16 at 01:01; Status DC Furosemide 40 mg 40 mg ONCE ONCE IV PUSH Last administered on 06/30/16 01:20 ; Start 06/30/16 at 01:00; Stop 06/30/16 at 01:01; Status DC Calcium Gluconate 1 gm/Dextrose 110 ml @ 110 mls/hr ONCE ONCE IV Last administered on 06/30/16 02:12; Start 06/30/16 at 01:00; Stop 06/30/16 at 01:59 ; Status DC Magnesium Sulfate/ Dextrose 100 ml @ 100 mls/hr Q1H IV Last administered on 02:12; Start 06/30/16 at 01:00; Stop 06/30/16 at 02:59; Status DC Sodium Chloride (NS 1000 ml Inj) 1,000 ml @ 100 mls/hr Q10H IV Last administered on 07/01/16 02:05; Start 06/30/16 at 01:09; Stop 07/01/16 at 15:02 ; Status DC Acetaminophen (Tylenol) 650 mg Q4H PRN PO TEMP > 100.4; Start 06/30/16 at 01:15 Ondansetron HCl (Zofran Inj) 4 mg Q6H PRN IVP NAUSEA OR VOMITING Last administered on 06/30/16 17:26; Start 06/30/16 at 01:15; Stop 07/01/16 at 15:03 ; Status DC Magnesium Hydroxide (Milk Of Magnesia Liq) 30 ml Q12H PRN PO CONSTIPATION Last administered on 07/04/16 17:56; Start 06/30/16 at 01:15 Enoxaparin Sodium (Lovenox Inj) 90 mg Q12H SQ Last administered on 07/08/16 12 :06; Start 06/30/16 at 13:00 Naloxone HCl 0.4 mg 0.4 mg UNSCH PRN IV SEE LABEL COMMENTS; Start 06/30/16 at 01:15 Ceftriaxone Sodium 1000 mg/ Sodium Chloride 100 ml @ 200 mls/hr Q24H IV Last administered on 07/07/16 01:43; Start 07/01/16 at 01:00; Stop 07/07/16 at 10:43 ; Status DC Azithromycin/ Sodium Chloride (Zithromax Inj/ NS 250 ml Inj) 250 ml @ 250 mls/ hr Q24H IV Last administered on 07/07/16 01:44; Start 07/01/16 at 01:00; Stop 07/07/16 at 10:43; Status DC Methylprednisolone Sodium Succinate (SoluMEDROL INJ) 40 mg Q8HR IV PUSH Last administered on 07/07/16 07:40; Start 06/30/16 at 08:15; Stop 07/07/16 at 10:44 ; Status DC Potassium Chloride (KCl) 40 meq ONCE ONCE PO Last administered on 06/30/16 09 :05; Start 06/30/16 at 08:30; Stop 06/30/16 at 08:33; Status DC Potassium Chloride (KCl) 20 meq ONCE ONCE PO Last administered on 06/30/16 11 :56; Start 06/30/16 at 12:00; Stop 06/30/16 at 12:01; Status DC Thiamine HCl (Vitamin B1) 100 mg DAILY PO Last administered on 07/08/16 08:44 ; Start 06/30/16 at 09:00 Multivitamins (Theragran) 1 tab DAILY PO Last administered on 07/08/16 08:45; Start 06/30/16 at 09:00 Lorazepam (Ativan Inj) 1 mg Q4H PRN IV PUSH ANXIETY Last administered on 17:26; Start 06/30/16 at 08:30; Stop 07/01/16 at 15:43; Status DC Albuterol/ Ipratropium (Duoneb Neb) 1 ampule Q6HR NEB NEB Last administered on 07/01/16 08:42; Start 06/30/16 at 10:00; Stop 07/01/16 at 09:00; Status DC Albuterol Sulfate (Albuterol Neb) 1.25 mg Q2HR NEB PRN NEB SHORTNESS OF BREATH Last administered on 07/01/16 01:35; Start 06/30/16 at 08:30; Stop 07/01/16 at 14:55; Status DC Diltiazem HCl 120 mg 120 mg DAILY PO Last administered on 06/30/16 11:55; Start 06/30/16 at 10:15; Stop 07/01/16 at 07:35; Status DC Calcium Gluconate/ Dextrose (Calcium Gluconate Inj/D5W 100 ml Inj) 110 ml @ 110 mls/hr ONCE ONCE IV Last administered on 06/30/16 17:25; Start 06/30/16 at 18:00; Stop 06/30/16 at 18:59; Status DC Magnesium Oxide (Mag-Ox) 400 mg Q12HR PO Last administered on 07/08/16 08:45; Start 06/30/16 at 16:30 Flumazenil (Romazicon Inj) 0.2 mg Q1M PRN IV PUSH SEE LABEL COMMENTS; Start at 21:45; Stop 07/03/16 at 06:40; Status DC Lorazepam (Ativan) 1 mg Q4H PRN PO CIWA 8 - 10 Last administered on 07/02/16 09:15; Start 06/30/16 at 21:45; Stop 07/04/16 at 10:09; Status DC Lorazepam (Ativan Inj) 1 mg Q4H PRN IV PUSH CIWA 8 - 10; Start 06/30/16 at 21: 45; Stop 07/01/16 at 15:43; Status DC Lorazepam (Ativan) 2 mg Q2H PRN PO CIWA 11-14; Start 06/30/16 at 21:45; Stop at 15:43; Status DC Lorazepam (Ativan Inj) 2 mg Q2H PRN IV PUSH CIWA 11-14 Last administered on 21:51; Start 06/30/16 at 21:45; Stop 07/01/16 at 15:43; Status DC Lorazepam (Ativan Inj) 2 mg Q1H PRN IV PUSH CIWA 15-20; Start 06/30/16 at 21:45 ; Stop 07/01/16 at 15:43; Status DC Lorazepam (Ativan Inj) 2 mg Q15M PRN IV PUSH CIWA > 20; Start 06/30/16 at 21:45 ; Stop 07/01/16 at 15:43; Status DC Metoprolol Tartrate (Lopressor) 50 mg Q8H PO Last administered on 07/01/16 09: 33; Start 07/01/16 at 08:00; Stop 07/08/16 at 06:42; Status DC Furosemide (Lasix) 40 mg BID@09,18 PO Last administered on 07/01/16 09:34; Start 07/01/16 at 09:00; Stop 07/03/16 at 06:40; Status DC Potassium Chloride (KCl) 20 meq Q12HR PO Last administered on 07/02/16 08:57; Start 07/01/16 at 09:00; Stop 07/02/16 at 20:23; Status DC Lisinopril (Prinivil) 2.5 mg DAILY PO Last administered on 07/01/16 09:33; Start 07/01/16 at 09:00; Stop 07/01/16 at 15:42; Status DC Miscellaneous (Pill Splitter) 1 ea UNSCH PRN OTHER SEE LABEL COMMENTS; Start at 08:45 Epinephrine HCl (Adrenalin (1:1000) Inj) 4 mg STK-MED ONCE .ROUTE ; Start at 13:44; Stop 07/01/16 at 13:45; Status DC Epinephrine HCl 1 mg 1 mg STK-MED ONCE .ROUTE ; Start 07/01/16 at 13:48; Stop at 13:49; Status DC Propofol (Diprivan 1000 Mg/100ml Inj) 100 ml @ As Directed STK-MED ONCE .ROUTE Last administered on 07/01/16 14:31; Start 07/01/16 at 14:31; Stop 07/01/16 at 14:32; Status DC Sodium Bicarbonate 100 meq 100 meq STK-MED ONCE .ROUTE Last administered on 17:41; Start 07/01/16 at 14:34; Stop 07/01/16 at 14:35; Status DC Sodium Chloride (NS 1000 ml Inj) 1,000 ml @ 50 mls/hr Q20H IV Last administered on 07/01/16 17:47; Start 07/01/16 at 14:38; Stop 07/02/16 at 08:04 ; Status DC IV Flush (NS Flush) 2 ml UNSCH PRN IV FLUSH FLUSH AFTER USING IV ACCESS; Start 07/01/16 at 14:45 IV Flush (NS Flush) 2 ml BID IV FLUSH Last administered on 07/08/16 08:46; Start 07/01/16 at 21:00 Famotidine (Pepcid Inj) 20 mg Q12HR IV PUSH Last administered on 07/08/16 08: 45; Start 07/01/16 at 21:00 Artificial Tears (Tears Naturale Opth Soln) 1 drop TID EACH EYE Last administered on 07/03/16 09:11; Start 07/01/16 at 18:00; Stop 07/03/16 at 10:44 ; Status DC Ondansetron HCl (Zofran Inj) 4 mg Q6H PRN IV NAUSEA OR VOMITING; Start at 14:45 Docusate Sodium (Colace) 100 mg Q12H PO Last administered on 07/02/16 14:45; Start 07/01/16 at 14:45; Stop 07/02/16 at 20:18; Status DC Sennosides (Senokot) 17.2 mg Q12H PRN PO CONSTIPATION; Start 07/01/16 at 14:45 Albuterol/ Ipratropium (Duoneb Neb) 1 ampule Q6HR NEB INH Last administered on 07/05/16 10:04; Start 07/01/16 at 16:00; Stop 07/05/16 at 16:00; Status DC Albuterol/ Ipratropium (Duoneb Neb) 1 ampule Q2HR NEB PRN INH WHEEZING; Start 07/01/16 at 14:45 Miscellaneous Information 1 1 [id number] XX ; Start 07/01/16 at 14:45 Potassium Chloride 100 ml @ 50 mls/hr Q2H PRN IV For Potassium 2.8 - 3.2 mEq/ L Last administered on 07/03/16 19:02; Start 07/01/16 at 14:45 Potassium Chloride 100 ml @ 50 mls/hr Q2H PRN IV For Potassium 2.8 - 3.2 mEq/ L Last administered on 07/02/16 13:44; Start 07/01/16 at 14:45 Potassium Chloride 100 ml @ 25 mls/hr UNSCH PRN IV For Potassium 3.3 - 3.5 mEq /L; Start 07/01/16 at 14:45 Potassium Chloride 100 ml @ 50 mls/hr Q2H PRN IV For Potassium 3.3 - 3.5 mEq/ L Last administered on 07/04/16 06:18; Start 07/01/16 at 14:45 Magnesium Sulfate/ Sodium Chloride (Magnesium Sulfate Inj/NS Inj) 100 ml @ 50 mls/hr UNSCH PRN IV For Magnesium 0.9 - 1.1 mg/dL; Start 07/01/16 at 14:45 Magnesium Oxide 800 mg 800 mg UNSCH PRN PO For Magnesium 1.2 - 1.6 mg/dL; Start 07/01/16 at 14:45 Magnesium Sulfate/ Sodium Chloride (Magnesium Sulfate Inj/NS Inj) 100 ml @ 50 mls/hr UNSCH PRN IV For Magnesium 1.2 - 1.6 mg/dL Last administered on 07:30; Start 07/01/16 at 14:45 Potassium Phosphate 2000 mg 2,000 mg Q4H PRN PO For Phosphorus < 2.5 mg/dL; Start 07/01/16 at 14:45 Sodium Phosphate 30 mmol/Sodium Chloride 250 ml @ 42 mls/hr UNSCH PRN IV For Phosphorus < 2.5 mg/dL; Start 07/01/16 at 14:45 Potassium Phosphate/Sodium Chloride (Potassium Phosphate Inj/NS 250 ml Inj) 260 ml @ 42 mls/hr UNSCH PRN IV SEE LABEL COMMENTS; Start 07/01/16 at 14:45 Chlorhexidine Gluconate 15 ml 15 ml BID@08,20 MT Last administered on 08:00; Start 07/01/16 at 20:00 Propofol (Diprivan 1000 Mg/100ml Inj) 100 ml @ 0 mls/hr TITRATE IV Last administered on 07/03/16 06:56; Start 07/01/16 at 14:45; Stop 07/03/16 at 10:44 ; Status DC Dextrose (D50w (Vial) Inj) 25 ml UNSCH PRN IV PUSH HYPOGLYCEMIA-SEE COMMENTS; Start 07/01/16 at 14:45 Glucagon (Glucagon Inj) 1 mg UNSCH PRN OTHER HYPOGLYCEMIA-SEE COMMENTS; Start 07/01/16 at 14:45 Insulin Human Regular 1 1 ACHS SLIDING SCALE SQ Last administered on 20:55; Start 07/01/16 at 16:00 Dobutamine HCl/ Dextrose 250 ml @ As Directed STK-MED ONCE .ROUTE Last administered on 07/01/16 17:46; Start 07/01/16 at 16:59; Stop 07/01/16 at 17:00 ; Status DC Sodium Bicarbonate 50 ml @ As Directed STK-MED ONCE .ROUTE Last administered on 07/01/16 17:46; Start 07/01/16 at 17:15; Stop 07/01/16 at 17:16; Status DC Norepinephrine Bitartrate 250 ml @ As Directed STK-MED ONCE IV ; Start at 19:59; Stop 07/01/16 at 20:00; Status DC Diltiazem HCl 125 mg/Sodium Chloride 125 ml @ 0 mls/hr TITRATE IV ; Start at 20:30; Stop 07/03/16 at 06:40; Status DC Dobutamine HCl/ Dextrose (DOBUTamine PREMIX DRIP) 250 ml @ As Directed STK-MED ONCE .ROUTE Last administered on 07/01/16 21:59; Start 07/01/16 at 20:57; Stop 07/01/16 at 20:58; Status DC Atropine Sulfate 1 mg 1 mg STK-MED ONCE .ROUTE ; Start 07/01/16 at 21:01; Stop 07/01/16 at 21:02; Status DC Norepinephrine Bitartrate 250 ml @ 0 mls/hr TITRATE IV Last administered on 04:05; Start 07/01/16 at 22:15; Stop 07/04/16 at 10:09; Status DC Dobutamine HCl/ Dextrose (DOBUTamine PREMIX DRIP) 250 ml @ 15.33 mls/ hr [id number] IV Last administered on 07/03/16 14:54; Start 07/01/16 at 22:15; Stop 07/04/16 at 07:24; Status DC Calcium Chloride (Calcium Chloride Inj) 1 gm ONCE ONCE IV PUSH Last administered on 07/02/16 04:07; Start 07/02/16 at 03:15; Stop 07/02/16 at 03:16 ; Status DC Furosemide 80 mg 80 mg ONCE ONCE IV PUSH Last administered on 07/02/16 04:07 ; Start 07/02/16 at 03:15; Stop 07/02/16 at 03:16; Status DC Epinephrine HCl/ Dextrose (Adrenalin (1:1000) Inj/D5W Inj) 252 ml @ 0 mls/hr TITRATE IV Last administered on 07/02/16 04:48; Start 07/02/16 at 04:45; Stop 07/03/16 at 06:41; Status DC Furosemide 40 mg 40 mg Q12H IV PUSH ; Start 07/02/16 at 20:00; Stop 07/03/16 at 06:41; Status DC Magnesium Sulfate/ Dextrose (Magnesium Sulfate 1 Gm Premix) 100 ml @ As Directed STK-MED ONCE .ROUTE ; Start 07/02/16 at 17:53; Stop 07/02/16 at 17:54; Status DC Furosemide 80 mg 80 mg NOW ONCE IV PUSH Last administered on 07/02/16 21:10; Start 07/02/16 at 21:00; Stop 07/02/16 at 21:01; Status DC Calcium Chloride/ Sodium Chloride (Calcium Chloride Inj/NS Inj) 110 ml @ 110 mls/hr NOW ONCE IV Last administered on 07/02/16 21:13; Start 07/02/16 at 21: 00; Stop 07/02/16 at 21:59; Status DC Acetazolamide Sodium (Diamox Inj) 500 mg NOW ONCE IV Last administered on 07/02 21:12; Start 07/02/16 at 21:00; Stop 07/02/16 at 21:01; Status DC Docusate Sodium (Colace Liq) 100 mg Q12HR PO Last administered on 07/08/16 08: 44; Start 07/02/16 at 21:00 Potassium Chloride 20 meq 20 meq Q12H PO Last administered on 07/07/16 21:00; Start 07/02/16 at 21:00; Stop 07/08/16 at 06:45; Status DC Magnesium Sulfate/ Dextrose (Magnesium Sulfate 1 Gm Premix) 100 ml @ 100 mls/ hr Q1H IV Last administered on 07/02/16 23:30; Start 07/02/16 at 22:30; Stop 07/03/16 at 00:29; Status DC Furosemide (Lasix Inj) 80 mg Q12HR IV PUSH Last administered on 07/04/16 08:07 ; Start 07/03/16 at 09:00; Stop 07/05/16 at 08:19; Status DC Acetazolamide Sodium (Diamox Inj) 500 mg Q8H IV PUSH Last administered on 07:41; Start 07/03/16 at 08:00; Stop 07/03/16 at 10:45; Status DC Haloperidol Lactate (Haldol Inj) 5 mg STK-MED ONCE .ROUTE ; Start 07/03/16 at 13 :19; Stop 07/03/16 at 13:20; Status DC Lorazepam (Ativan Inj) 2 mg STK-MED ONCE .ROUTE ; Start 07/03/16 at 13:20; Stop 07/03/16 at 13:21; Status DC Lorazepam (Ativan Inj) 1 mg ONCE ONCE IV PUSH Last administered on 07/03/16 13:57; Start 07/03/16 at 14:00; Stop 07/03/16 at 14:01; Status DC Lorazepam 1 mg 1 mg ONCE ONCE IV PUSH ; Start 07/03/16 at 14:00; Stop 07/03/16 at 14:01; Status DC Dexmedetomidine HCl 50 ml @ 0 mls/hr TITRATE IV Last administered on 07/05/16 04:18; Start 07/03/16 at 13:30 Calcium Gluconate/ Sodium Chloride (Calcium Gluconate Inj/NS Inj) 120 ml @ 60 mls/hr NOW ONCE IV Last administered on 07/04/16 07:37; Start 07/04/16 at 07: 30; Stop 07/04/16 at 09:29; Status DC Metoprolol Tartrate (Lopressor Inj) 2.5 mg NOW ONCE IV PUSH Last administered on 07/04/16 08:05; Start 07/04/16 at 07:30; Stop 07/04/16 at 07:31; Status DC Alteplase, Recombinant (Cathflo Activase Inj) 4 mg STK-MED ONCE .ROUTE Last administered on 07/04/16 10:42; Start 07/04/16 at 08:38; Stop 07/04/16 at 08:39 ; Status DC Lorazepam (Ativan Inj) 1 mg Q4H PRN IM MOD - SEVERE ANXIETY/AGITATION; Start at 10:15; Stop 07/04/16 at 17:45; Status DC Lorazepam (Ativan Inj) 1 mg Q4H PRN IM ANXIETY AND/OR AGITATION Last administered on 07/05/16 03:39; Start 07/04/16 at 17:45; Stop 07/05/16 at 08:20 ; Status DC Furosemide (Lasix Inj) 40 mg Q12HR IV PUSH Last administered on 07/07/16 21:15 ; Start 07/05/16 at 09:00; Stop 07/08/16 at 06:42; Status DC Lorazepam (Ativan Inj) 2 mg Q4H PRN IM ANXIETY AND/OR AGITATION Last administered on 07/08/16 08:58; Start 07/05/16 at 09:45 Chlordiazepoxide (Librium) 50 mg Q6H PO Last administered on 07/06/16 11:00; Start 07/05/16 at 11:00; Stop 07/06/16 at 11:01; Status DC Chlordiazepoxide (Librium) 25 mg Q6H PO Last administered on 07/08/16 12:06; Start 07/06/16 at 17:00; Stop 07/08/16 at 11:01; Status DC Flumazenil (Romazicon Inj) 0.2 mg Q1M PRN IV PUSH SEE LABEL COMMENTS; Start at 12:45 Lorazepam (Ativan) 1 mg Q4H PRN PO CIWA 8 - 10; Start 07/06/16 at 12:45 Lorazepam (Ativan Inj) 1 mg Q4H PRN IV PUSH CIWA 8 - 10 Last administered on 21:28; Start 07/06/16 at 12:45 Lorazepam (Ativan) 2 mg Q2H PRN PO CIWA 11-14 Last administered on 07/07/16 13 :08; Start 07/06/16 at 12:45 Lorazepam (Ativan Inj) 2 mg Q2H PRN IV PUSH CIWA 11-14 Last administered on 14:21; Start 07/06/16 at 12:45 Lorazepam (Ativan Inj) 2 mg Q1H PRN IV PUSH CIWA 15-20; Start 07/06/16 at 12:45 Lorazepam (Ativan Inj) 2 mg Q15M PRN IV PUSH CIWA > 20 Last administered on 12:51; Start 07/06/16 at 12:45 Trimethoprim/ Sulfamethoxazole (Bactrim Ds 800-160 Mg) 1 tab Q12HR PO Last administered on 07/08/16 08:45; Start 07/07/16 at 10:45 Prednisone (Deltasone) 20 mg BID PO Last administered on 07/08/16 08:45; Start 07/07/16 at 21:00 Furosemide (Lasix) 40 mg BID@,18 PO Last administered on 07/08/16 08:45; Start 07/08/16 at 09:00 Potassium Chloride (KCl) 20 meq Q12HR PO Last administered on 07/08/16 08:45; Start 07/08/16 at 09:00 Date of Insertion: Jul 01, 2016 Date of Insertion: Jul 01, 2016 Line: Central Venous Catheter Side: Right Location: Internal, Jugular A/P Problem List: (1) Atrial fibrillation with RVR ICD Code: I48.91 Status: Acute (2) PNA (pneumonia) ICD Code: J18.9 Status: Acute (3) COPD exacerbation ICD Code: J44.1 Status: Acute (4) Elevated troponin ICD Code: R74.8 Status: Acute Assessment and Plan Possible hypoxic encephalopathy secondary to cardiac arrest Alcohol dependency History of seizure disorder Altered mental status secondary to hypoxia? Neurochecks confusing is improving. s/p Precedex treatment. F/U EEG 07/01 CT scan -no acute intracranial abnormality Monitor for signs of alcohol withdrawal Continue thiamine and multivitamin Ativan 2 mg every 4 hours PRN for withdrawal symptoms and agitation on Librium taper 25 mg. S/P Hypoxic respiratory arrest COPD exacerbation Right lower lobe pneumonia Pulmonary edema-resolved Tobacco abuse CXR 07/01-edema resolving, decrease in left upper lobe opacity, no change in right lung opacity Bronchodilators every 6 hours schedule every 2 hours when necessary Continue methylprednisolone as per Museum Curator. Encourage incentive spirometry Patient counseled on smoking cessation sputum grew MRSA so d/c Rocephin and azithromycin on 07/07 and now on Bactrim. he will need at least 10 days of treatment with bactrim. on PO prednisone 20 mg PO BID. Cardiomyopathy NSTEMI A. fib RVR PEA arrest Systolic congestive heart failure Echo 06/30-ejection fraction 2530%, aortic valve mild regurgitation, mitral valve mild to moderate regurgitation, systolic function severely diminished, tricuspid valve trace to mild regurgitation Vasopressor support: Dobutamine Dc'd 07/03 Cardiology on boardDr. Wright follow-up recommendations Decrease Lasix 40mg IV q12h. diamox 500mg iv [id number] 07/03 Normotensive-MAP 70's Hypocalcemia Hyponatremia (chronic? ) Hypokalemia Hypomagnesemia replenish as needed Thrombocytopenia no signs of bleeding. due to alcoholism Monitor CBC GI Prophylaxis Pepcid twice a day DVT Prophylaxis -- SCDs Discharge Planning patient confusion is improving. he is homeless and self paid so he will need aggressive PT in house since patient cannot go to SNF. Problem Qualifiers (1) PNA (pneumonia): Qualified Code: J18.1 - Pneumonia of right lower lobe due to infectious organism Quin Long MD Jul 08, 2016 16:42
--- NOTE | 2016-07-08 18:47 | HHI.PR ---
Subjective Remarks 45 YOWM with VDRF,s/p cardiac arrest X2 Extubated Weaned to RA Good appetite No fever or chills Tolerates PO, needs assistance feeding More Coharent, less confused Objective Vital Signs Vital Signs Date Time Temp Pulse Resp B/P Pulse Ox O2 Delivery O2 Flow Rate FiO2 07/08/16 18:00 92 Room Air 07/08/16 18:00 105 07/08/16 18:00 98.7 109 18 /62 92 07/08/16 16:36 92 Room Air 07/08/16 16:00 98.7 109 18 /62 92 07/08/16 16:00 105 07/08/16 16:00 92 Room Air 07/08/16 15:00 98.7 109 18 62 92 07/08/16 15:00 92 Room Air 07/08/16 15:00 105 07/08/16 11:00 98.7 109 18 / 92 07/08/16 11:00 92 Room Air 07/08/16 11:00 105 07/08/16 09:37 93 21 07/08/16 07:00 98.7 99 15 104/79 92 07/08/16 07:00 108 07/08/16 07:00 92 Room Air 07/08/16 03:00 98.7 103 15 104/72 92 07/08/16 03:00 103 07/08/16 03:00 92 Room Air 07/07/16 23:00 129 07/07/16 23:00 98.7 129 20 103/80 93 07/07/16 23:00 93 Room Air 07/07/16 19:00 93 Room Air 07/07/16 19:00 98.6 118 25 103/63 93 07/07/16 19:00 118 I/O 07/07/16 07/07/16 07/07/16 07/08/16 07/08/16 07/08/16 07:00 15:00 23:00 07:00 15:00 23:00 Intake Total 364 ml 145 ml 134 ml 136 ml 180 ml Output Total 500 ml 1000 ml 910 ml 925 ml 1800 ml Balance -136 ml -855 ml -776 ml -789 ml -1620 ml Intake Oral 100 ml 100 ml 100 ml 180 ml IV Total 364 ml 45 ml 34 ml 36 ml Output Urine Total 500 ml 1000 ml 910 ml 925 ml 1800 ml # Bowel Movements 0 0 0 Result Diagram: 07/08/1642807/08/16428 Objective Remarks GENERAL: WBWN male, on Vent SKIN: Warm and dry. HEAD: Normocephalic. EYES: No scleral icterus. No injection or drainage. NECK: Supple, trachea midline. No JVD or lymphadenopathy. CARDIOVASCULAR: Regular rate and rhythm without murmurs, gallops, or rubs. RESPIRATORY: Breath sounds equal bilaterally. No accessory muscle use. GASTROINTESTINAL: Abdomen soft, non-tender, nondistended. MUSCULOSKELETAL: No cyanosis, or edema. BACK: Nontender without obvious deformity. No CVA tenderness. A/P Assessment and Plan VDRF, s/p extubation 07/03 S/P cardiac arrest CHF AF COPD PLAN: Monitor lytes off Precedex Stable on RA Encourage PO intake PO Tomer Birmingham MD Jul 08, 2016 18:47
[2016-07-09] VITALS (9 sets, daily range): BP systolic 87–104; BP diastolic 62–77; PULSE 96–124; RESP 16–21; TEMP 98.2–99; O2SAT 93–100
[2016-07-09] MEDS: ENOXAPARIN SODIUM 100 MG/ML SYRINGE SQ SCH ×2 (01:12→13:52)
[2016-07-09 06:00] LABS: HEMATOCRIT 49.6 % (39.0-51.0); MEAN CELL VOLUME 100.8 FL (80.0-100.0); MEAN CORPUSCULAR HEMOGLOBIN 33.1 PG (27.0-34.0); MEAN CORPUSCULAR HGB CONC 32.9 % (32.0-36.0); PLATELET COUNT 159 TH/MM3 (150-450); RED BLOOD COUNT 4.92 MIL/MM3 (4.50-5.90); RED CELL DISTRIBUTION WIDTH 14.5 % (11.6-17.2); REVIEW FLAG FINAL; WHITE BLOOD COUNT 8.9 TH/MM3 (4.0-11.0)
[2016-07-09 06:04] LABS: BICARBONATE 26.5 MEQ/L (21.0-32.0); POTASSIUM 4.3 MEQ/L (3.5-5.1)
--- NOTE | 2016-07-09 07:50 | PD.CARD.PN ---
Subjective Subjective Remarks Pt without complaints Objective Medications Current Medications Medications (Trade) Dose Ordered Sig/Naren Route Start Time Stop Time Status Last Admin (Tylenol) 650 mg Q4H PRN PO 06/30/16 01:15 (Milk Of Magnindy Liq) 30 ml Q12H PRN PO 06/30/16 01:15 07/04/16 17:56 (Lovenox Inj) 90 mg Q12H SQ 06/30/16 13:00 07/09/16 01:12 (Narcan Inj) 0.4 mg UNSCH PRN IV 06/30/16 01:15 (Vitamin B1) 100 mg DAILY PO 06/30/16 09:00 07/08/16 08:44 (Theragran) 1 tab DAILY PO 06/30/16 09:00 07/08/16 08:45 (Mag-Ox) 400 mg Q12HR PO 06/30/16 16:30 07/08/16 20:14 (Pill Splitter) 1 ea UNSCH PRN OTHER 07/01/16 08:45 (NS Flush) 2 ml UNSCH PRN IV FLUSH 07/01/16 14:45 (NS Flush) 2 ml BID IV FLUSH 07/01/16 21:00 07/08/16 20:11 (Pepcid Inj) 20 mg Q12HR IV PUSH 07/01/16 21:00 07/08/16 20:11 (Zofran Inj) 4 mg Q6H PRN IV 07/01/16 14:45 (Senokot) 17.2 mg Q12H PRN PO 07/01/16 14:45 Miscellaneous Information 1 1 [id number] XX 07/01/16 14:45 Potassium Chloride 100 ml @ 50 mls/hr Q2H PRN IV 07/01/16 14:45 07/03/16 19:02 Potassium Chloride 100 ml @ 50 mls/hr Q2H PRN IV 07/01/16 14:45 07/02/16 13:44 Potassium Chloride 100 ml @ 25 mls/hr UNSCH PRN IV 07/01/16 14:45 Potassium Chloride 100 ml @ 50 mls/hr Q2H PRN IV 07/01/16 14:45 07/04/16 06:18 (Magnesium Sulfate Inj/NS Inj) 100 ml @ 50 mls/hr UNSCH PRN IV 07/01/16 14:45 Magnesium Oxide 800 mg 800 mg UNSCH PRN PO 07/01/16 14:45 (Magnesium Sulfate Inj/NS Inj) 100 ml @ 50 mls/hr UNSCH PRN IV 07/01/16 14:45 07/06/16 07:30 Potassium Phosphate 2000 mg 2,000 mg Q4H PRN PO 07/01/16 14:45 Sodium Phosphate 30 mmol/Sodium Chloride 250 ml @ 42 mls/hr UNSCH PRN IV 07/01/16 14:45 (Potassium Phosphate Inj/NS 250 ml Inj) 260 ml @ 42 mls/hr UNSCH PRN IV 07/01/16 14:45 (Peridex 0.12% Liq) 15 ml BID@08,20 MT 07/01/16 20:00 07/08/16 08:00 (D50w (Vial) Inj) 25 ml UNSCH PRN IV PUSH 07/01/16 14:45 (Glucagon Inj) 1 mg UNSCH PRN OTHER 07/01/16 14:45 Docusate Sodium 100 mg 100 mg Q12HR PO 07/02/16 21:00 07/08/16 20:14 (Precedex Inj) 50 ml @ 0 mls/hr TITRATE IV 07/03/16 13:30 07/05/16 04:18 (Ativan Inj) 2 mg Q4H PRN IM 07/05/16 09:45 07/08/16 22:44 (Romazicon Inj) 0.2 mg Q1M PRN IV PUSH 07/06/16 12:45 (Ativan) 1 mg Q4H PRN PO 07/06/16 12:45 (Ativan Inj) 1 mg Q4H PRN IV PUSH 07/06/16 12:45 07/07/16 21:28 (Ativan) 2 mg Q2H PRN PO 07/06/16 12:45 07/07/16 13:08 (Ativan Inj) 2 mg Q2H PRN IV PUSH 07/06/16 12:45 07/07/16 14:21 (Ativan Inj) 2 mg Q1H PRN IV PUSH 07/06/16 12:45 (Ativan Inj) 2 mg Q15M PRN IV PUSH 07/06/16 12:45 07/06/16 12:51 (Bactrim Ds 800-160 Mg) 1 tab Q12HR PO 07/07/16 10:45 07/08/16 20:13 (Deltasone) 20 mg BID PO 07/07/16 21:00 07/08/16 20:14 (Lasix) 40 mg BID@09,18 PO 07/08/16 09:00 07/08/16 18:04 (KCl) 20 meq Q12HR PO 07/08/16 09:00 07/08/16 20:14 Vital Signs / I&O Vital Signs Date Time Temp Pulse Resp B/P Pulse Ox O2 Delivery O2 Flow Rate FiO2 07/09/16 03:00 98.3 105 16 91/63 95 07/09/16 03:00 95 Room Air 07/09/16 03:00 105 07/08/16 23:00 94 Room Air 07/08/16 23:00 98.0 116 14 100/77 94 07/08/16 23:00 116 07/08/16 19:00 97.8 125 26 104/76 96 07/08/16 19:00 96 Room Air 07/08/16 19:00 125 07/08/16 18:00 92 Room Air 07/08/16 18:00 105 07/08/16 18:00 98.7 109 18 90/62 92 07/08/16 16:36 92 Room Air 07/08/16 16:00 98.7 109 18 90/62 92 07/08/16 16:00 105 07/08/16 16:00 92 Room Air 07/08/16 15:00 98.7 109 18 90/62 92 07/08/16 15:00 92 Room Air 07/08/16 15:00 105 07/08/16 11:00 98.7 109 18 90/62 92 07/08/16 11:00 92 Room Air 07/08/16 11:00 105 07/08/16 09:37 93 21 I/O 07/08/16 07/08/16 07/08/16 07/09/16 07/09/16 07/09/16 07:00 15:00 23:00 07:00 15:00 23:00 Intake Total 136 ml 180 ml 571 ml 506 ml Output Total 925 ml 1800 ml 900 ml 650 ml Balance -789 ml -1620 ml -329 ml -144 ml Intake Oral 100 ml 180 ml 480 ml 480 ml IV Total 36 ml 91 ml 26 ml Output Urine Total 925 ml 1800 ml 900 ml 650 ml # Bowel Movements 0 0 0 Physical Exam GENERAL: NAD, A&O to person and BD only HEENT: Jugular venous pressure is normal. CHEST: Lungs decreased to auscultation bilaterally. Unlabored respiratory effort. CARDIAC: irregular rate and rhythm without S3, S4, or murmur. ABDOMEN: Soft, nontender, Bowel sounds present. EXTREMITIES: No clubbing, cyanosis, edema. Laboratory Laboratory Tests Test 07/09/16 05:02 White Blood Count 8.9 TH/MM3 Red Blood Count 4.92 MIL/MM3 Hemoglobin 16.3 GM/DL Hematocrit 49.6 % Mean Corpuscular Volume 100.8 FL Mean Corpuscular Hemoglobin 33.1 PG Mean Corpuscular Hemoglobin 32.9 % Concent Red Cell Distribution Width 14.5 % Platelet Count 159 TH/MM3 Mean Platelet Volume 8.6 FL Sodium Level 142 MEQ/L Potassium Level 4.3 MEQ/L Chloride Level 106 MEQ/L Carbon Dioxide Level 26.5 MEQ/L Anion Gap 10 MEQ/L Blood Urea Nitrogen 36 MG/DL Creatinine 0.84 MG/DL Estimat Glomerular Filtration 98 ML/MIN Rate Random Glucose 102 MG/DL Calcium Level 8.7 MG/DL Assessment and Plan Assessment and Plan s/p arrest x2,- PEA -no overt cardiac etiology -this would be very unusual for ischemia without antecedent CP/ ST changes -he is a poor/not a revasc candidate with his prior noncompliance and now very confused; in restraints - I had a long conversation with his mother who is agreeable to conservative medical management => Palliative care consult and floors AF- acceptable rate control given his sBP in 90's -anticoagulation per primary team Cardiomyopathy- ETOH vs tachycardia vs ischemia vs other -BP remains too low for BB or maragrito -EF 25 =>35% CHF acute systolic failure- reasonably compensated; doing well on PO lasix/ potassium Pneumonia- per primary team Confusion- per primary team ok d/c from CV perspective Available PRJerrica Levi MD Jul 09, 2016 07:50
[2016-07-09] MEDS: CHLORHEXIDINE 0.12% (ORAL KIT) 15 ML CUP MT SCH (08:00)
[2016-07-09] MEDS: DOCUSATE SODIUM 100 MG/10 ML UDC PO SCH ×2 (09:23→21:26)
[2016-07-09] MEDS: predniSONE 20 MG TAB PO SCH ×2 (09:24→21:25)
[2016-07-09] MEDS: SULFAMETHOXAZOLE-TRIMETHOPRIM DS 800-160 MG TAB PO SCH ×2 (09:24→21:25)
[2016-07-09] MEDS: FAMOTIDINE 20 MG/2 ML VIAL IV PUSH SCH ×2 (09:24→21:26)
[2016-07-09] MEDS: FUROSEMIDE 40 MG TAB PO SCH ×2 (09:24→17:55)
[2016-07-09] MEDS: SODIUM CHLORIDE 0.9% FLUSH 5 ML FLUSH IV FLUSH SCH ×2 (09:24→21:26)
[2016-07-09] MEDS: MULTIVITAMIN TAB PO SCH (09:24)
[2016-07-09] MEDS: POTASSIUM CHLORIDE 20 MEQ CONTROLLED RELEASE TAB PO SCH ×2 (09:24→21:26)
[2016-07-09] MEDS: THIAMINE HCL 100 MG TAB PO SCH (09:24)
[2016-07-09] MEDS: MAGNESIUM OXIDE 400 MG TAB PO SCH ×2 (09:24→21:26)
[2016-07-09] MEDS: INSULIN NovoLIN REGULAR SUPPLEMENTAL SCALE SQ SCH ×3 (11:00→21:00)
--- NOTE | 2016-07-09 13:43 | HHI.PR ---
Subjective Remarks f/u for multiple medical conditions. No acute events overnight. Per nurse asking if patient can be transfer to [facility]. per nurse x ray technician okay for patient to not be on telemetry. patient is AAO X 1. he can tell me his name. He answers simple questions. Denied any SOB, CP, or any pain. he has no complaints. Objective Vitals Vital Signs Date Time Temp Pulse Resp B/P Pulse Ox O2 Delivery O2 Flow Rate FiO2 07/09/16 12:00 116 07/09/16 12:00 100 Room Air 07/09/16 12:00 99.0 116 20 104/77 100 07/09/16 10:00 124 07/09/16 07:00 97 Room Air 07/09/16 07:00 109 07/09/16 07:00 98.4 109 21 87/62 95 07/09/16 03:00 98.3 105 16 91/63 95 07/09/16 03:00 95 Room Air 07/09/16 03:00 105 07/08/16 23:00 94 Room Air 07/08/16 23:00 98.0 116 14 100/77 94 07/08/16 23:00 116 07/08/16 19:00 97.8 125 26 104/76 96 07/08/16 19:00 96 Room Air 07/08/16 19:00 125 07/08/16 18:00 92 Room Air 07/08/16 18:00 105 07/08/16 18:00 98.7 109 18 90/62 92 07/08/16 16:36 92 Room Air 07/08/16 16:00 98.7 109 18 90/62 92 07/08/16 16:00 105 07/08/16 16:00 92 Room Air 07/08/16 15:00 98.7 109 18 90/62 92 07/08/16 15:00 92 Room Air 07/08/16 15:00 105 I/O 07/08/16 07/08/16 07/08/16 07/09/16 07/09/16 07/09/16 06:59 14:59 22:59 06:59 14:59 22:59 Intake Total 136 ml 180 ml 571 ml 506 ml Output Total 925 ml 1800 ml 900 ml 650 ml Balance -789 ml -1620 ml -329 ml -144 ml Intake Oral 100 ml 180 ml 480 ml 480 ml IV Total 36 ml 91 ml 26 ml Output Urine Total 925 ml 1800 ml 900 ml 650 ml # Bowel Movements 0 0 0 Result Diagram: 07/09/16 05007/09/16 050 Objective Remarks GENERAL: disheveled male in NAD. CARDIOVASCULAR: Regular rate and rhythm without murmurs, gallops, or rubs. RESPIRATORY: Breath sounds equal bilaterally but patient does not take any deep inspiration for me. No accessory muscle use. GASTROINTESTINAL: Abdomen soft, non-tender, nondistended. NEURO: AAO X 1. Patient follow commands and can answer questions. Medications and IVs Current Medications Aspirin (Aspirin) 325 mg ONCE ONCE PO Last administered on 06/29/16 23:58; Start 06/29/16 at 23:45; Stop 06/29/16 at 23:46; Status DC IV Flush (NS Flush) 2 ml UNSCH PRN IVF FLUSH AFTER USING IV ACCESS; Start 06/29 at 23:45; Stop 07/01/16 at 15:01; Status DC Nitroglycerin (Nitrostat Sl) 0.4 mg Q5M SL Last administered on 06/29/16 00:05 ; Start 06/29/16 at 23:45; Stop 06/29/16 at 23:56; Status DC Albuterol/ Ipratropium 1 ampule 1 ampule Q15M INH Last administered on 00:09; Start 06/29/16 at 23:45; Stop 06/30/16 at 00:16; Status DC Diltiazem HCl/ Sodium Chloride (Cardizem Inj/NS Inj) 125 ml @ 0 mls/hr TITRATE IV Last administered on 06/30/16 19:33; Start 06/29/16 at 23:45; Stop at 15:40; Status DC Diltiazem HCl 23 mg 23 mg BOLUS ONCE IV PUSH ; Start 06/29/16 at 23:45; Stop at 23:46; Status DC Ceftriaxone Sodium 1000 mg/ Sodium Chloride 100 ml @ 200 mls/hr ONCE ONCE IV Last administered on 06/30/16 01:20; Start 06/30/16 at 01:00; Stop 06/30/16 at 01:29; Status DC Azithromycin/ Sodium Chloride (Zithromax Inj/ NS 250 ml Inj) 250 ml @ 250 mls/ hr ONCE ONCE IV Last administered on 06/30/16 04:13; Start 06/30/16 at 01:00 ; Stop 06/30/16 at 01:59; Status DC Aspirin (Aspirin) 325 mg ONCE ONCE PO ; Start 06/30/16 at 01:00; Stop 06/30/16 at 01:01; Status DC Nitroglycerin (Nitroglycerin 2% Oint) 1 inch ONCE ONCE TOP Last administered on 06/30/16 01:20; Start 06/30/16 at 01:00; Stop 06/30/16 at 01:01; Status DC Enoxaparin Sodium (Lovenox Inj) 90 mg ONCE ONCE SQ Last administered on 01:20; Start 06/30/16 at 01:00; Stop 06/30/16 at 01:01; Status DC Furosemide 40 mg 40 mg ONCE ONCE IV PUSH Last administered on 06/30/16 01:20 ; Start 06/30/16 at 01:00; Stop 06/30/16 at 01:01; Status DC Calcium Gluconate 1 gm/Dextrose 110 ml @ 110 mls/hr ONCE ONCE IV Last administered on 06/30/16 02:12; Start 06/30/16 at 01:00; Stop 06/30/16 at 01:59 ; Status DC Magnesium Sulfate/ Dextrose 100 ml @ 100 mls/hr Q1H IV Last administered on 02:12; Start 06/30/16 at 01:00; Stop 06/30/16 at 02:59; Status DC Sodium Chloride (NS 1000 ml Inj) 1,000 ml @ 100 mls/hr Q10H IV Last administered on 07/01/16 02:05; Start 06/30/16 at 01:09; Stop 07/01/16 at 15:02 ; Status DC Acetaminophen (Tylenol) 650 mg Q4H PRN PO TEMP > 100.4; Start 06/30/16 at 01:15 Ondansetron HCl (Zofran Inj) 4 mg Q6H PRN IVP NAUSEA OR VOMITING Last administered on 06/30/16 17:26; Start 06/30/16 at 01:15; Stop 07/01/16 at 15:03 ; Status DC Magnesium Hydroxide (Milk Of Magnesia Liq) 30 ml Q12H PRN PO CONSTIPATION Last administered on 07/04/16 17:56; Start 06/30/16 at 01:15 Enoxaparin Sodium (Lovenox Inj) 90 mg Q12H SQ Last administered on 07/09/16 01 :12; Start 06/30/16 at 13:00 Naloxone HCl 0.4 mg 0.4 mg UNSCH PRN IV SEE LABEL COMMENTS; Start 06/30/16 at 01:15 Ceftriaxone Sodium 1000 mg/ Sodium Chloride 100 ml @ 200 mls/hr Q24H IV Last administered on 07/07/16 01:43; Start 07/01/16 at 01:00; Stop 07/07/16 at 10:43 ; Status DC Azithromycin/ Sodium Chloride (Zithromax Inj/ NS 250 ml Inj) 250 ml @ 250 mls/ hr Q24H IV Last administered on 07/07/16 01:44; Start 07/01/16 at 01:00; Stop 07/07/16 at 10:43; Status DC Methylprednisolone Sodium Succinate (SoluMEDROL INJ) 40 mg Q8HR IV PUSH Last administered on 07/07/16 07:40; Start 06/30/16 at 08:15; Stop 07/07/16 at 10:44 ; Status DC Potassium Chloride (KCl) 40 meq ONCE ONCE PO Last administered on 06/30/16 09 :05; Start 06/30/16 at 08:30; Stop 06/30/16 at 08:33; Status DC Potassium Chloride (KCl) 20 meq ONCE ONCE PO Last administered on 06/30/16 11 :56; Start 06/30/16 at 12:00; Stop 06/30/16 at 12:01; Status DC Thiamine HCl (Vitamin B1) 100 mg DAILY PO Last administered on 07/09/16 09:24 ; Start 06/30/16 at 09:00 Multivitamins (Theragran) 1 tab DAILY PO Last administered on 07/09/16 09:24; Start 06/30/16 at 09:00 Lorazepam (Ativan Inj) 1 mg Q4H PRN IV PUSH ANXIETY Last administered on 17:26; Start 06/30/16 at 08:30; Stop 07/01/16 at 15:43; Status DC Albuterol/ Ipratropium (Duoneb Neb) 1 ampule Q6HR NEB NEB Last administered on 07/01/16 08:42; Start 06/30/16 at 10:00; Stop 07/01/16 at 09:00; Status DC Albuterol Sulfate (Albuterol Neb) 1.25 mg Q2HR NEB PRN NEB SHORTNESS OF BREATH Last administered on 07/01/16 01:35; Start 06/30/16 at 08:30; Stop 07/01/16 at 14:55; Status DC Diltiazem HCl 120 mg 120 mg DAILY PO Last administered on 06/30/16 11:55; Start 06/30/16 at 10:15; Stop 07/01/16 at 07:35; Status DC Calcium Gluconate/ Dextrose (Calcium Gluconate Inj/D5W 100 ml Inj) 110 ml @ 110 mls/hr ONCE ONCE IV Last administered on 06/30/16 17:25; Start 06/30/16 at 18:00; Stop 06/30/16 at 18:59; Status DC Magnesium Oxide (Mag-Ox) 400 mg Q12HR PO Last administered on 07/09/16 09:24; Start 06/30/16 at 16:30 Flumazenil (Romazicon Inj) 0.2 mg Q1M PRN IV PUSH SEE LABEL COMMENTS; Start at 21:45; Stop 07/03/16 at 06:40; Status DC Lorazepam (Ativan) 1 mg Q4H PRN PO CIWA 8 - 10 Last administered on 07/02/16 09:15; Start 06/30/16 at 21:45; Stop 07/04/16 at 10:09; Status DC Lorazepam (Ativan Inj) 1 mg Q4H PRN IV PUSH CIWA 8 - 10; Start 06/30/16 at 21: 45; Stop 07/01/16 at 15:43; Status DC Lorazepam (Ativan) 2 mg Q2H PRN PO CIWA 11-14; Start 06/30/16 at 21:45; Stop at 15:43; Status DC Lorazepam (Ativan Inj) 2 mg Q2H PRN IV PUSH CIWA 11-14 Last administered on 21:51; Start 06/30/16 at 21:45; Stop 07/01/16 at 15:43; Status DC Lorazepam (Ativan Inj) 2 mg Q1H PRN IV PUSH CIWA 15-20; Start 06/30/16 at 21:45 ; Stop 07/01/16 at 15:43; Status DC Lorazepam (Ativan Inj) 2 mg Q15M PRN IV PUSH CIWA > 20; Start 06/30/16 at 21:45 ; Stop 07/01/16 at 15:43; Status DC Metoprolol Tartrate (Lopressor) 50 mg Q8H PO Last administered on 07/01/16 09: 33; Start 07/01/16 at 08:00; Stop 07/08/16 at 06:42; Status DC Furosemide (Lasix) 40 mg BID@,18 PO Last administered on 07/01/16 09:34; Start 07/01/16 at 09:00; Stop 07/03/16 at 06:40; Status DC Potassium Chloride (KCl) 20 meq Q12HR PO Last administered on 07/02/16 08:57; Start 07/01/16 at 09:00; Stop 07/02/16 at 20:23; Status DC Lisinopril (Prinivil) 2.5 mg DAILY PO Last administered on 07/01/16 09:33; Start 07/01/16 at 09:00; Stop 07/01/16 at 15:42; Status DC Miscellaneous (Pill Splitter) 1 ea UNSCH PRN OTHER SEE LABEL COMMENTS; Start at 08:45 Epinephrine HCl (Adrenalin (1:1000) Inj) 4 mg STK-MED ONCE .ROUTE ; Start at 13:44; Stop 07/01/16 at 13:45; Status DC Epinephrine HCl 1 mg 1 mg STK-MED ONCE .ROUTE ; Start 07/01/16 at 13:48; Stop at 13:49; Status DC Propofol (Diprivan 1000 Mg/100ml Inj) 100 ml @ As Directed STK-MED ONCE .ROUTE Last administered on 07/01/16 14:31; Start 07/01/16 at 14:31; Stop 07/01/16 at 14:32; Status DC Sodium Bicarbonate 100 meq 100 meq STK-MED ONCE .ROUTE Last administered on 17:41; Start 07/01/16 at 14:34; Stop 07/01/16 at 14:35; Status DC Sodium Chloride (NS 1000 ml Inj) 1,000 ml @ 50 mls/hr Q20H IV Last administered on 07/01/16 17:47; Start 07/01/16 at 14:38; Stop 07/02/16 at 08:04 ; Status DC IV Flush (NS Flush) 2 ml UNSCH PRN IV FLUSH FLUSH AFTER USING IV ACCESS; Start 07/01/16 at 14:45 IV Flush (NS Flush) 2 ml BID IV FLUSH Last administered on 07/09/16 09:24; Start 07/01/16 at 21:00 Famotidine (Pepcid Inj) 20 mg Q12HR IV PUSH Last administered on 07/09/16 09: 24; Start 07/01/16 at 21:00 Artificial Tears (Tears Naturale Opth Soln) 1 drop TID EACH EYE Last administered on 07/03/16 09:11; Start 07/01/16 at 18:00; Stop 07/03/16 at 10:44 ; Status DC Ondansetron HCl (Zofran Inj) 4 mg Q6H PRN IV NAUSEA OR VOMITING; Start at 14:45 Docusate Sodium (Colace) 100 mg Q12H PO Last administered on 07/02/16 14:45; Start 07/01/16 at 14:45; Stop 07/02/16 at 20:18; Status DC Sennosides (Senokot) 17.2 mg Q12H PRN PO CONSTIPATION; Start 07/01/16 at 14:45 Albuterol/ Ipratropium (Duoneb Neb) 1 ampule Q6HR NEB INH Last administered on 07/05/16 10:04; Start 07/01/16 at 16:00; Stop 07/05/16 at 16:00; Status DC Albuterol/ Ipratropium (Duoneb Neb) 1 ampule Q2HR NEB PRN INH WHEEZING; Start 07/01/16 at 14:45 Miscellaneous Information 1 1 [id number] XX ; Start 07/01/16 at 14:45 Potassium Chloride 100 ml @ 50 mls/hr Q2H PRN IV For Potassium 2.8 - 3.2 mEq/ L Last administered on 07/03/16 19:02; Start 07/01/16 at 14:45 Potassium Chloride 100 ml @ 50 mls/hr Q2H PRN IV For Potassium 2.8 - 3.2 mEq/ L Last administered on 07/02/16 13:44; Start 07/01/16 at 14:45 Potassium Chloride 100 ml @ 25 mls/hr UNSCH PRN IV For Potassium 3.3 - 3.5 mEq /L; Start 07/01/16 at 14:45 Potassium Chloride 100 ml @ 50 mls/hr Q2H PRN IV For Potassium 3.3 - 3.5 mEq/ L Last administered on 07/04/16 06:18; Start 07/01/16 at 14:45 Magnesium Sulfate/ Sodium Chloride (Magnesium Sulfate Inj/NS Inj) 100 ml @ 50 mls/hr UNSCH PRN IV For Magnesium 0.9 - 1.1 mg/dL; Start 07/01/16 at 14:45 Magnesium Oxide 800 mg 800 mg UNSCH PRN PO For Magnesium 1.2 - 1.6 mg/dL; Start 07/01/16 at 14:45 Magnesium Sulfate/ Sodium Chloride (Magnesium Sulfate Inj/NS Inj) 100 ml @ 50 mls/hr UNSCH PRN IV For Magnesium 1.2 - 1.6 mg/dL Last administered on 07:30; Start 07/01/16 at 14:45 Potassium Phosphate 2000 mg 2,000 mg Q4H PRN PO For Phosphorus < 2.5 mg/dL; Start 07/01/16 at 14:45 Sodium Phosphate 30 mmol/Sodium Chloride 250 ml @ 42 mls/hr UNSCH PRN IV For Phosphorus < 2.5 mg/dL; Start 07/01/16 at 14:45 Potassium Phosphate/Sodium Chloride (Potassium Phosphate Inj/NS 250 ml Inj) 260 ml @ 42 mls/hr UNSCH PRN IV SEE LABEL COMMENTS; Start 07/01/16 at 14:45 Chlorhexidine Gluconate 15 ml 15 ml BID@08,20 MT Last administered on 08:00; Start 07/01/16 at 20:00 Propofol (Diprivan 1000 Mg/100ml Inj) 100 ml @ 0 mls/hr TITRATE IV Last administered on 07/03/16 06:56; Start 07/01/16 at 14:45; Stop 07/03/16 at 10:44 ; Status DC Dextrose (D50w (Vial) Inj) 25 ml UNSCH PRN IV PUSH HYPOGLYCEMIA-SEE COMMENTS; Start 07/01/16 at 14:45 Glucagon (Glucagon Inj) 1 mg UNSCH PRN OTHER HYPOGLYCEMIA-SEE COMMENTS; Start 07/01/16 at 14:45 Insulin Human Regular 1 1 ACHS SLIDING SCALE SQ Last administered on 20:55; Start 07/01/16 at 16:00 Dobutamine HCl/ Dextrose 250 ml @ As Directed STK-MED ONCE .ROUTE Last administered on 07/01/16 17:46; Start 07/01/16 at 16:59; Stop 07/01/16 at 17:00 ; Status DC Sodium Bicarbonate 50 ml @ As Directed STK-MED ONCE .ROUTE Last administered on 07/01/16 17:46; Start 07/01/16 at 17:15; Stop 07/01/16 at 17:16; Status DC Norepinephrine Bitartrate 250 ml @ As Directed STK-MED ONCE IV ; Start at 19:59; Stop 07/01/16 at 20:00; Status DC Diltiazem HCl 125 mg/Sodium Chloride 125 ml @ 0 mls/hr TITRATE IV ; Start at 20:30; Stop 07/03/16 at 06:40; Status DC Dobutamine HCl/ Dextrose (DOBUTamine PREMIX DRIP) 250 ml @ As Directed STK-MED ONCE .ROUTE Last administered on 07/01/16 21:59; Start 07/01/16 at 20:57; Stop 07/01/16 at 20:58; Status DC Atropine Sulfate 1 mg 1 mg STK-MED ONCE .ROUTE ; Start 07/01/16 at 21:01; Stop 07/01/16 at 21:02; Status DC Norepinephrine Bitartrate 250 ml @ 0 mls/hr TITRATE IV Last administered on 04:05; Start 07/01/16 at 22:15; Stop 07/04/16 at 10:09; Status DC Dobutamine HCl/ Dextrose (DOBUTamine PREMIX DRIP) 250 ml @ 15.33 mls/ hr [id number] IV Last administered on 07/03/16 14:54; Start 07/01/16 at 22:15; Stop 07/04/16 at 07:24; Status DC Calcium Chloride (Calcium Chloride Inj) 1 gm ONCE ONCE IV PUSH Last administered on 07/02/16 04:07; Start 07/02/16 at 03:15; Stop 07/02/16 at 03:16 ; Status DC Furosemide 80 mg 80 mg ONCE ONCE IV PUSH Last administered on 07/02/16 04:07 ; Start 07/02/16 at 03:15; Stop 07/02/16 at 03:16; Status DC Epinephrine HCl/ Dextrose (Adrenalin (1:1000) Inj/D5W Inj) 252 ml @ 0 mls/hr TITRATE IV Last administered on 07/02/16 04:48; Start 07/02/16 at 04:45; Stop 07/03/16 at 06:41; Status DC Furosemide 40 mg 40 mg Q12H IV PUSH ; Start 07/02/16 at 20:00; Stop 07/03/16 at 06:41; Status DC Magnesium Sulfate/ Dextrose (Magnesium Sulfate 1 Gm Premix) 100 ml @ As Directed STK-MED ONCE .ROUTE ; Start 07/02/16 at 17:53; Stop 07/02/16 at 17:54; Status DC Furosemide 80 mg 80 mg NOW ONCE IV PUSH Last administered on 07/02/16 21:10; Start 07/02/16 at 21:00; Stop 07/02/16 at 21:01; Status DC Calcium Chloride/ Sodium Chloride (Calcium Chloride Inj/NS Inj) 110 ml @ 110 mls/hr NOW ONCE IV Last administered on 07/02/16 21:13; Start 07/02/16 at 21: 00; Stop 07/02/16 at 21:59; Status DC Acetazolamide Sodium (Diamox Inj) 500 mg NOW ONCE IV Last administered on 07/02 21:12; Start 07/02/16 at 21:00; Stop 07/02/16 at 21:01; Status DC Docusate Sodium (Colace Liq) 100 mg Q12HR PO Last administered on 07/09/16 09: 23; Start 07/02/16 at 21:00 Potassium Chloride 20 meq 20 meq Q12H PO Last administered on 07/07/16 21:00; Start 07/02/16 at 21:00; Stop 07/08/16 at 06:45; Status DC Magnesium Sulfate/ Dextrose (Magnesium Sulfate 1 Gm Premix) 100 ml @ 100 mls/ hr Q1H IV Last administered on 07/02/16 23:30; Start 07/02/16 at 22:30; Stop 07/03/16 at 00:29; Status DC Furosemide (Lasix Inj) 80 mg Q12HR IV PUSH Last administered on 07/04/16 08:07 ; Start 07/03/16 at 09:00; Stop 07/05/16 at 08:19; Status DC Acetazolamide Sodium (Diamox Inj) 500 mg Q8H IV PUSH Last administered on 07:41; Start 07/03/16 at 08:00; Stop 07/03/16 at 10:45; Status DC Haloperidol Lactate (Haldol Inj) 5 mg STK-MED ONCE .ROUTE ; Start 07/03/16 at 13 :19; Stop 07/03/16 at 13:20; Status DC Lorazepam (Ativan Inj) 2 mg STK-MED ONCE .ROUTE ; Start 07/03/16 at 13:20; Stop 07/03/16 at 13:21; Status DC Lorazepam (Ativan Inj) 1 mg ONCE ONCE IV PUSH Last administered on 07/03/16 13:57; Start 07/03/16 at 14:00; Stop 07/03/16 at 14:01; Status DC Lorazepam 1 mg 1 mg ONCE ONCE IV PUSH ; Start 07/03/16 at 14:00; Stop 07/03/16 at 14:01; Status DC Dexmedetomidine HCl 50 ml @ 0 mls/hr TITRATE IV Last administered on 07/05/16 04:18; Start 07/03/16 at 13:30 Calcium Gluconate/ Sodium Chloride (Calcium Gluconate Inj/NS Inj) 120 ml @ 60 mls/hr NOW ONCE IV Last administered on 07/04/16 07:37; Start 07/04/16 at 07: 30; Stop 07/04/16 at 09:29; Status DC Metoprolol Tartrate (Lopressor Inj) 2.5 mg NOW ONCE IV PUSH Last administered on 3/18/17at 08:05; Start 07/04/16 at 07:30; Stop 07/04/16 at 07:31; Status DC Alteplase, Recombinant (Cathflo Activase Inj) 4 mg STK-MED ONCE .ROUTE Last administered on 07/04/16 10:42; Start 07/04/16 at 08:38; Stop 07/04/16 at 08:39 ; Status DC Lorazepam (Ativan Inj) 1 mg Q4H PRN IM MOD - SEVERE ANXIETY/AGITATION; Start at 10:15; Stop 07/04/16 at 17:45; Status DC Lorazepam (Ativan Inj) 1 mg Q4H PRN IM ANXIETY AND/OR AGITATION Last administered on 07/05/16 03:39; Start 07/04/16 at 17:45; Stop 07/05/16 at 08:20 ; Status DC Furosemide (Lasix Inj) 40 mg Q12HR IV PUSH Last administered on 07/07/16 21:15 ; Start 07/05/16 at 09:00; Stop 07/08/16 at 06:42; Status DC Lorazepam (Ativan Inj) 2 mg Q4H PRN IM ANXIETY AND/OR AGITATION Last administered on 07/08/16 22:44; Start 07/05/16 at 09:45 Chlordiazepoxide (Librium) 50 mg Q6H PO Last administered on 07/06/16 11:00; Start 07/05/16 at 11:00; Stop 07/06/16 at 11:01; Status DC Chlordiazepoxide (Librium) 25 mg Q6H PO Last administered on 07/08/16 12:06; Start 07/06/16 at 17:00; Stop 07/08/16 at 11:01; Status DC Flumazenil (Romazicon Inj) 0.2 mg Q1M PRN IV PUSH SEE LABEL COMMENTS; Start at 12:45 Lorazepam (Ativan) 1 mg Q4H PRN PO CIWA 8 - 10; Start 07/06/16 at 12:45 Lorazepam (Ativan Inj) 1 mg Q4H PRN IV PUSH CIWA 8 - 10 Last administered on 21:28; Start 07/06/16 at 12:45 Lorazepam (Ativan) 2 mg Q2H PRN PO CIWA 11-14 Last administered on 07/07/16 13 :08; Start 07/06/16 at 12:45 Lorazepam (Ativan Inj) 2 mg Q2H PRN IV PUSH CIWA 11-14 Last administered on 14:21; Start 07/06/16 at 12:45 Lorazepam (Ativan Inj) 2 mg Q1H PRN IV PUSH CIWA 15-20; Start 07/06/16 at 12:45 Lorazepam (Ativan Inj) 2 mg Q15M PRN IV PUSH CIWA > 20 Last administered on 12:51; Start 07/06/16 at 12:45 Trimethoprim/ Sulfamethoxazole (Bactrim Ds 800-160 Mg) 1 tab Q12HR PO Last administered on 07/09/16 09:24; Start 07/07/16 at 10:45 Prednisone (Deltasone) 20 mg BID PO Last administered on 07/09/16 09:24; Start 07/07/16 at 21:00 Furosemide (Lasix) 40 mg BID@09,18 PO Last administered on 07/09/16 09:24; Start 07/08/16 at 09:00 Potassium Chloride (KCl) 20 meq Q12HR PO Last administered on 07/09/16 09:24; Start 07/08/16 at 09:00 Date of Insertion: Jul 01, 2016 Date of Insertion: Jul 01, 2016 Line: Central Venous Catheter Side: Right Location: Internal, Jugular A/P Problem List: (1) Atrial fibrillation with RVR ICD Code: I48.91 Status: Acute (2) PNA (pneumonia) ICD Code: J18.9 Status: Acute (3) COPD exacerbation ICD Code: J44.1 Status: Acute (4) Elevated troponin ICD Code: R74.8 Status: Acute Assessment and Plan Possible hypoxic encephalopathy secondary to cardiac arrest Alcohol dependency History of seizure disorder Altered mental status secondary to hypoxia? confusing is improving and he follow commands. s/p Precedex treatment. 07/01 CT scan -no acute intracranial abnormality completed detox. S/P Hypoxic respiratory arrest COPD exacerbation Right lower lobe pneumonia Pulmonary edema-resolved Tobacco abuse CXR 07/01-edema resolving, decrease in left upper lobe opacity, no change in right lung opacity Bronchodilators every 6 hours schedule every 2 hours when necessary Encourage incentive spirometry Patient counseled on smoking cessation sputum grew MRSA so d/c Rocephin and azithromycin on 07/07 and now on Bactrim. he will need at least 10 days of treatment with bactrim. on PO prednisone 20 mg PO BID will need to taper. Cardiomyopathy NSTEMI A. fib RVR PEA arrest Systolic congestive heart failure Echo 06/30-ejection fraction 2530%, aortic valve mild regurgitation, mitral valve mild to moderate regurgitation, systolic function severely diminished, tricuspid valve trace to mild regurgitation Vasopressor support: Dobutamine Dc'd 07/03 Cardiology on boardDr. Kyle follow-up recommendations Decrease Lasix 40mg IV q12h. diamox 500mg iv [id number] 07/03 Normotensive-MAP 70's Hypocalcemia Hyponatremia (chronic? ) Hypokalemia Hypomagnesemia replenish as needed Thrombocytopenia no signs of bleeding. due to alcoholism Monitor CBC GI Prophylaxis Pepcid twice a day DVT Prophylaxis on Lovenox Discharge Planning patient confusion is improving. he is homeless and self paid so he will need aggressive PT in house since patient cannot go to SNF. Patient on list to be transfer to [facility]. Problem Qualifiers (1) PNA (pneumonia): Qualified Code: J18.1 - Pneumonia of right lower lobe due to infectious organism Quin Long MD Jul 09, 2016 13:42
--- NOTE | 2016-07-09 15:07 | PD.CONS ---
Consult Service Palliative Care . Consult Requested By Dr. Wright . Primary Care Physician No Primary Care Physician . Reason for Consultation a. To assist with evaluation and management of symptoms including: Pain, weakness b. To assist medical decision maker(s) with: better understanding of current medical conditions; weighing benefits/burdens of medical treatment options; making medical treatment decisions. . (Yuliana Arana) HPI History of Present Illness Patient is a 45-year-old homeless male with a history of seizures, COPD atrial fibrillation, EtOH abuse and diverticulitis. He presented to [facility] via EMS on 06/29/16 for evaluation of dyspnea and chest pain with associated cough. Per EMS report, on arrival the patient was noted to be in atrial fibrillation with a heart rate in the [id number]. Respirations were labored with bilateral wheezing. Patient received albuterol nebulized treatment, 125mg Solu-Medrol, and 20mg Cardizem en route. Upon arrival to the ED the patient's heart rate was in the 120s. Patient reported a 3 week history of shortness of breath and productive cough with yellow sputum. He reported intermittent fever and chills. He also complained of left-sided chest pain that radiated across his chest and lessened when he was sitting upright. Of note, the patient has a history of noncompliance, not taking his medications secondary to finances. Additional diagnostics findings in the ED: * Vital signs: Pulse 124, respirations 24, blood pressure 127/87, oxygen saturation 99% on 2 L via nasal cannula, oral temperature 97.7 * WBC: 8.8, hemoglobin 14.2, hematocrit 40.4, platelets 1:15, neutrophils 66.1% * Sodium: 131, potassium 3.5, chloride 94, carbon dioxide 26.8, glucose 125, calcium 7.0, magnesium 1.1 * BUN: 12, creatinine 0.84, GFR 98 * Total creatine kinase: 232, CKMB 5.1 * Troponin: 0.12 * BNP: 785 * Total protein: 7.7 * PT: 16.1, INR 1.4, APTT 30.6 * Chest x-ray: Shows confluent opacity in the right lower lung indicating pulmonary consolidation, small right plural effusion, moderate cardiac silhouette enlargement, no evidence of pneumothorax. * EKG: Atrial fibrillation with RVR, left anterior fascicular block. The patient was diagnosed with RLL pneumonia and was started on azithromycin and Rocephin, as well as a COPD exacerbation on nebulizer treatments and IV steroids. He placed on thiamine,multivitamins and PRN lorazepam secondary to his EtOH abuse. Magnesium and potassium will be replenished. BNP elevated at 785. Patient received IV Lasix 40 mg 1. Cardiology was consulted to assist with management of atrial fibrillation with RVR and NSTEMI. Patient remains on a Cardizem drip. An echocardiogram was done on 06/30/16 with EF in the range of 25% to 30% (previous EF of 55% in January,), aortic valve mild regurgitation, mitral valve mildmoderate regurgitation , systolic function severely diminished dish diminished, tricuspid valve trace to mild regurgitation. Patient is not a candidate for revascularization secondary to his history of noncompliance. On 07/01/16, the patient on telemetry was noted to have a drop in his heart rate from the 90s to the 40s. Upon entering the patient's room, the RN noted the patient was unconscious on the floor in sinus bradycardia - atropine was administered 1. The patient then went into PEA arrest, subsequently undergoing 2 rounds of CPR with 2 doses of epinephrine and ROSC. Patient was transferred to CVICU and placed on epinephrine drip. Pulmonology was consulted to assist with management of COPD and pneumonia. Patient remains intubated on the mechanical ventilator with FiO2 of 70%. He is on Dopamine and and Levophed to maintain his blood pressure. EEG on 07/03/16 is indicative of moderate encephalopathy with possible superimposed sleep state with absence of seizure activity. CT brain showed no acute disease. Neurology continues to follow. Blood cultures were negative. Sputum culture on 07/02/16: + MRSA. Rocephin and azithromycin were discontinued and the patient was started on Bactrim. Patient was extubated on 07/03/16. He had an episode of SVT with a heart rate in the [id number], dobutamine was discontinued with spontaneous resolution of symptoms. The patient remains slightly confused, requiring low-dose Precedex drip and PRN lorazepam. A follow-up chest x-ray on 07/04/16 showed cardiomegaly with mild basilar airspace disease, right greater than left. Patient continues to have intermittent confusion Patient is requesting to be transferred to the [facility]. The patient is homeless and self-pay so he cannot be placed at a custodial facility, he will require aggressive PT and house. The patient is on the list to be transferred to [place]. Palliative Care was consulted to assist with symptom management and to discuss with the agent the benefits and burdens of his current illnesses and the options regarding future care. . Function/Cognitive [place]ory [place] has a long history of substance abuse and is a chronic smoker. He was diagnosed with atrial fibrillation and COPD several years ago but was noncompliant and does not take his medications secondary to finances. His mother has not seen him in approximately 2 years. . (Yuliana Arana) Review of Systems ROS Limitations: Clinical Condition, Altered Mental Status Constitutional: COMPLAINS OF: Fatigue, Pain, Generalized weakness Respiratory: COMPLAINS OF: Sputum production, Shortness of breath Cardiovascular: COMPLAINS OF: Chest pain, Dyspnea on Exertion Gastrointestinal: COMPLAINS OF: Nausea, Vomiting Musculoskeletal: COMPLAINS OF: Joint pain, Back pain Neurologic: COMPLAINS OF: Seizures Psychiatric: COMPLAINS OF: Anxiety (Yuliana Arana) Past Family Social History Coded Allergies: *MDRO Multi-Drug Resistant Organism (Verified Adverse Reaction, Unknown, ) MRSA PCR Screen POSITIVE - 07/02/2016, 08/19/2016 MRSA (sputum)-07/02/16 Past Medical History COPD CHF NSTEMI Seizure disorder Atrial fibrillation Diverticulitis . Past Surgical History Colostomy, reversed in 2004 . Reported Medications No reported medications . Current Medications Medications (Trade) Dose Ordered Sig/Naren Route Start Time Stop Time Status Last Admin (Tylenol) 650 mg Q4H PRN PO 06/30/16 01:15 (Milk Of Magnesia Liq) 30 ml Q12H PRN PO 06/30/16 01:15 07/04/16 17:56 (Lovenox Inj) 90 mg Q12H SQ 06/30/16 13:00 07/09/16 01:12 (Narcan Inj) 0.4 mg UNSCH PRN IV 06/30/16 01:15 (Vitamin B1) 100 mg DAILY PO 06/30/16 09:00 07/09/16 09:24 (Theragran) 1 tab DAILY PO 06/30/16 09:00 07/09/16 09:24 (Mag-Ox) 400 mg Q12HR PO 06/30/16 16:30 07/09/16 09:24 (Pill Splitter) 1 ea UNSCH PRN OTHER 07/01/16 08:45 (NS Flush) 2 ml UNSCH PRN IV FLUSH 07/01/16 14:45 (NS Flush) 2 ml BID IV FLUSH 07/01/16 21:00 07/09/16 09:24 (Pepcid Inj) 20 mg Q12HR IV PUSH 07/01/16 21:00 07/09/16 09:24 (Zofran Inj) 4 mg Q6H PRN IV 07/01/16 14:45 (Senokot) 17.2 mg Q12H PRN PO 07/01/16 14:45 Miscellaneous Information 1 1 [id number] XX 07/01/16 14:45 Potassium Chloride 100 ml @ 50 mls/hr Q2H PRN IV 07/01/16 14:45 07/03/16 19:02 Potassium Chloride 100 ml @ 50 mls/hr Q2H PRN IV 07/01/16 14:45 07/02/16 13:44 Potassium Chloride 100 ml @ 25 mls/hr UNSCH PRN IV 07/01/16 14:45 Potassium Chloride 100 ml @ 50 mls/hr Q2H PRN IV 07/01/16 14:45 07/04/16 06:18 (Magnesium Sulfate Inj/NS Inj) 100 ml @ 50 mls/hr UNSCH PRN IV 07/01/16 14:45 Magnesium Oxide 800 mg 800 mg UNSCH PRN PO 07/01/16 14:45 (Magnesium Sulfate Inj/NS Inj) 100 ml @ 50 mls/hr UNSCH PRN IV 07/01/16 14:45 07/06/16 07:30 Potassium Phosphate 2000 mg 2,000 mg Q4H PRN PO 07/01/16 14:45 Sodium Phosphate 30 mmol/Sodium Chloride 250 ml @ 42 mls/hr UNSCH PRN IV 07/01/16 14:45 (Potassium Phosphate Inj/NS 250 ml Inj) 260 ml @ 42 mls/hr UNSCH PRN IV 07/01/16 14:45 (Peridex 0.12% Liq) 15 ml BID@08,20 MT 07/01/16 20:00 07/08/16 08:00 (D50w (Vial) Inj) 25 ml UNSCH PRN IV PUSH 07/01/16 14:45 (Glucagon Inj) 1 mg UNSCH PRN OTHER 07/01/16 14:45 Docusate Sodium 100 mg 100 mg Q12HR PO 07/02/16 21:00 07/09/16 09:23 (Precedex Inj) 50 ml @ 0 mls/hr TITRATE IV 07/03/16 13:30 07/05/16 04:18 (Ativan Inj) 2 mg Q4H PRN IM 07/05/16 09:45 07/08/16 22:44 (Romazicon Inj) 0.2 mg Q1M PRN IV PUSH 07/06/16 12:45 (Ativan) 1 mg Q4H PRN PO 07/06/16 12:45 (Ativan Inj) 1 mg Q4H PRN IV PUSH 07/06/16 12:45 07/07/16 21:28 (Ativan) 2 mg Q2H PRN PO 07/06/16 12:45 07/07/16 13:08 (Ativan Inj) 2 mg Q2H PRN IV PUSH 07/06/16 12:45 07/07/16 14:21 (Ativan Inj) 2 mg Q1H PRN IV PUSH 07/06/16 12:45 (Ativan Inj) 2 mg Q15M PRN IV PUSH 07/06/16 12:45 07/06/16 12:51 (Bactrim Ds 800-160 Mg) 1 tab Q12HR PO 07/07/16 10:45 07/09/16 09:24 (Deltasone) 20 mg BID PO 07/07/16 21:00 07/09/16 09:24 (Lasix) 40 mg BID@09,18 PO 07/08/16 09:00 07/09/16 09:24 (KCl) 20 meq Q12HR PO 07/08/16 09:00 07/09/16 09:24 Family History Both patient's mother has diabetes, previous OH, CKD. Patient's father had diabetes, at the age of 74 years with liver cancer. Patient's brother at the age of 39 from an OH. . Substance Use Tobacco: Patient has smoked 1 PPD since the age of 11 years Alcohol: Patient reports he drinks a 12 pack of beer daily or 1/2 gallon of vodka, daily depending on his finances. Prescription med abuse: None known Illicits: Patient intermittently smokes marijuana, past history of heroin . Psychosocial History Patient is originally from [place]. His father at the age of 74 with liver cancer. He had one brother, Collin, who at the age of 39 from a heart attack. The patient worked as a rachel. Patient's mother confirmed the previous information, adding that her son became addicted and homeless while still in [place]. She moved him to [place] approximately 4 years ago hoping to help him. She reports that all trying to help him she lost all of her money and became homeless as well. The patient's mother states the patient has been in and out of group home, and she has a restraining order against him because he has been violent with her in the past. . Spiritual/Cultural Factors Congregation chandra . (Yuliana Arana) Health Care Surrogate(s): No health care surrogate has been designated. Per [place] statutes, in the absence of written advanced directives healthcare proxy decision making would fall to the patient's mother, Karley Valdez. . Documented care wishes: No documented care wishes have been completed. Today's verbally stated goals: Patient states, "I'm afraid I am going to , I don't want to . Pleased to everything you can to keep me alive." . Family/friends goals: Mother states she supports her son's current aggressive goals stating, " If he dies, I'm the only one left." . Ethical and Legal Issues No known ethical or legal issues at this time. . (Yuliana Arana) Physical Exam Vital Signs Date Time Temp Pulse Resp B/P Pulse Ox O2 Delivery O2 Flow Rate FiO2 07/09/16 12:00 116 07/09/16 12:00 100 Room Air 07/09/16 12:00 99.0 116 20 104/77 100 07/09/16 10:00 124 07/09/16 07:00 97 Room Air 07/09/16 07:00 109 07/09/16 07:00 98.4 109 21 87/62 95 07/09/16 03:00 98.3 105 16 91/63 95 07/09/16 03:00 95 Room Air 07/09/16 03:00 105 07/08/16 23:00 94 Room Air 07/08/16 23:00 98.0 116 14 100/77 94 07/08/16 23:00 116 07/08/16 19:00 97.8 125 26 104/76 96 07/08/16 19:00 96 Room Air 07/08/16 19:00 125 07/08/16 18:00 92 Room Air 07/08/16 18:00 105 07/08/16 18:00 98.7 109 18 90/62 92 07/08/16 16:36 92 Room Air 07/08/16 16:00 98.7 109 18 90/62 92 07/08/16 16:00 105 07/08/16 16:00 92 Room Air 07/08/16 15:00 98.7 109 18 90/62 92 07/08/16 15:00 92 Room Air 07/08/16 15:00 105 . 07/08/16 07/09/16 19:00 07:00 Intake Total 180 ml 1077 ml Output Total 1800 ml 1550 ml Balance -1620 ml -473 ml Intake Oral 180 ml 960 ml IV Total 117 ml Output Urine Total 1800 ml 1550 ml # Bowel Movements 0 . Exam CONSTITUTIONAL/GENERAL: This is a frail, disheveled middle-aged male patient, in no apparent distress. TUBES/LINES/DRAINS: PIV 1 SKIN: No jaundice, rashes, or lesions. Ecchymoses on upper extremities. No wounds seen anteriorly. Skin temperature appropriate. Not diaphoretic. HEAD: Atraumatic. Normocephalic. EYES: Pupils equal and round and reactive. Extraocular motions intact. No scleral icterus. No injection or drainage. Fundi not examined. ENT: Hearing grossly normal. Nose without bleeding or purulent drainage. T NECK: Trachea midline. Supple, nontender. No palpable thyroid enlargement or nodularity. CARDIOVASCULAR: Regular rate and rhythm without murmurs, gallops, or rubs. No JVD. Peripheral pulses symmetric. RESPIRATORY/CHEST: Symmetric, unlabored respirations. Clear to auscultation. Breath sounds diminished bilaterally. No accessory muscle use. No wheezes, rales, or rhonchi. GASTROINTESTINAL: Abdomen soft, non-tender, nondistended. No hepato-splenomegaly , or palpable masses. No guarding. Bowel sounds present. GENITOURINARY: Without palpable bladder distension. MUSCULOSKELETAL: Extremities without clubbing, cyanosis, or edema. . No calf tenderness. No mottling or clubbing. LYMPHATICS: No palpable cervical or supraclavicular adenopathy. NEUROLOGICAL: Oriented to person place and time at exam. Follows commands. Moves all extremities. PSYCHIATRIC: Patient is anxious, verbalizing fear that he will . . (Yuliana Arana) Diagnostic Tests Laboratory Laboratory Tests Test 07/07/16 07/08/16 07/09/16 04:41 04:29 05:02 White Blood Count 8.4 TH/MM3 8.1 TH/MM3 8.9 TH/MM3 (4.0-11.0) (4.0-11.0) (4.0-11.0) Red Blood Count 4.77 MIL/MM3 4.72 MIL/MM3 4.92 MIL/MM3 (4.50-5.90) (4.50-5.90) (4.50-5.90) Hemoglobin 16.1 GM/DL 15.8 GM/DL 16.3 GM/DL (13.0-17.0) (13.0-17.0) (13.0-17.0) Hematocrit 47.5 % 46.7 % 49.6 % (39.0-51.0) (39.0-51.0) (39.0-51.0) Mean Corpuscular Volume 99.6 FL 99.0 FL 100.8 FL (80.0-100.0) (80.0-100.0) (80.0-100.0) Mean Corpuscular Hemoglobin 33.8 PG 33.4 PG 33.1 PG (27.0-34.0) (27.0-34.0) (27.0-34.0) Mean Corpuscular Hemoglobin 33.9 % 33.7 % 32.9 % Concent (32.0-36.0) (32.0-36.0) (32.0-36.0) Red Cell Distribution Width 14.5 % 14.3 % 14.5 % (11.6-17.2) (11.6-17.2) (11.6-17.2) Platelet Count 130 TH/MM3 143 TH/MM3 159 TH/MM3 (150-450) (150-450) (150-450) Mean Platelet Volume 8.4 FL 8.2 FL 8.6 FL (7.0-11.0) (7.0-11.0) (7.0-11.0) Sodium Level 140 MEQ/L 143 MEQ/L 142 MEQ/L (136-145) (136-145) (136-145) Potassium Level 3.8 MEQ/L 3.7 MEQ/L 4.3 MEQ/L (3.5-5.1) (3.5-5.1) (3.5-5.1) Chloride Level 103 MEQ/L 105 MEQ/L 106 MEQ/L (98-107) (98-107) (98-107) Carbon Dioxide Level 29.3 MEQ/L 29.3 MEQ/L 26.5 MEQ/L (21.0-32.0) (21.0-32.0) (21.0-32.0) Anion Gap 8 MEQ/L (5-15) 9 MEQ/L (5-15) 10 MEQ/L (5-15) Blood Urea Nitrogen 29 MG/DL (7-18) 38 MG/DL (7-18) 36 MG/DL (7-18) Creatinine 0.68 MG/DL 0.84 MG/DL 0.84 MG/DL (0.60-1.30) (0.60-1.30) (0.60-1.30) Estimat Glomerular Filtration 126 ML/MIN 98 ML/MIN (>89) 98 ML/MIN (>89) Rate (>89) Random Glucose 137 MG/DL 104 MG/DL 102 MG/DL (74-106) (74-106) (74-106) Calcium Level 7.8 MG/DL 8.6 MG/DL 8.7 MG/DL (8.5-10.1) (8.5-10.1) (8.5-10.1) Magnesium Level 1.7 MG/DL (1.5-2.5) . (Yuliana Arana) Result Diagram: 07/09/16 0502 07/09/162 Procedures 07/01/16: Endotracheal intubation 07/01/16: Right IJ central line placement; arterial line placement 07/03/16: Extubation 07/04/16: Femoral arterial line removed (Yuliana Arana) Patient/Family Conference Present at Family Conference: Met with patient at bedside. Spoke to patient's mother via telephone. . Family Conference Location: Bedside, Telephone Issues Discussed: * Palliative care role, purpose, approach * Additional medical, psychosocial, and spiritual history * Patients general health, functional status, and cognitive changes in the months leading up to the current hospitalization * Patient/family understanding of the current medical problems * Patient/family understanding of prognosis * Patients goals of care as best understood from advance directives and/or conversations and/or values * Current medical treatment options and benefits/burdens of those options * Likely scenarios comparing ongoing aggressive care with a transition to comfort measures only * Questions answered to the best of my ability * Palliative care contact information provided . (Yuliana Arana) Assessment and Plan Disease Oriented Problem List: (1) Seizure (2) ETOH abuse (3) Dyspnea (4) CHF (congestive heart failure) (5) Hypomagnesemia (6) Chest pain (7) NSTEMI (non-ST elevated myocardial infarction) (8) Elevated troponin (9) COPD exacerbation (10) Atrial fibrillation with RVR (11) PNA (pneumonia) Symptom Scale: (1) Pain 0-10 Scale: Unable to quantify (2) Weakness 0-10 Scale: Unable to quantify (3) Constipation 0-10 Scale: Unable to quantify Comment: Per documentation no BM since admission, unclear if this is accurate. Bowel protocol initiated, Senna-S 1 tab PO BID. . Pertinent Non-Medical Issues Psychosocial:Patient is originally from [place]. His father at the age of 74 with liver cancer. He had one brother, Collin, who at the age of 39 from a heart attack. The patient worked as a rachel. Patient's mother confirmed the previous information, adding that her son became addicted and homeless while still in [place]. She moved him to [place] approximately 4 years ago hoping to help him. She reports that all trying to help him she lost all of her money and became homeless as well. The patient's mother states the patient has been in and out of group home, and she has a restraining order against him because he has been violent with her in the past. Spiritual: Congregation chandra Legal: Per [place] statutes, in the absence of written advanced directives healthcare proxy decision-making falls to the patient's mother, Karley Hubbard Ethical issues impacting care: No known ethical issues impacting care at this time . Important Contacts Karley Hubbard, mother: [phone] . Prognosis Patient is a 45-year-old homeless male with a long history of substance abuse. Currently drinks alcohol and smokes daily. He was diagnosed with COPD and atrial fibrillation with RVR approximately 4 years ago but has been noncompliant and does not take prescribed medication secondary to financial issues. EF 25% to 30%. He is not a candidate for revascularization per cardiology. He is currently hospitalized with COPD exacerbation, CHF exacerbation, pneumonia, atrial fibrillation with RVR, NSTEMI status post PEA arrest on 07/01/16. Given this patient's lifestyle choices, continued substance abuse and complex medical conditions; this patient's overall prognosis is poor and the patient will likely experience recurrent hospitalizations/complications. . Code Status: Full Code Plan * FULL CODE * Decision-making: Per [place] statutes, in the absence of written directives healthcare proxy decision-making falls to the patient's only living relative his mother Karley Valdez. * Goals: AGGRESSIVE GOALS. Patient states, "I'm afraid I am going to , I don' t want to . Pleased to everything you can to keep me alive." * Calculation Reviewer consult placed per patient's request. * Symptom managementconstipation: Per documentation no BM since admission, unclear if this is accurate. Bowel protocol initiated, Senna-S 1 tab PO BID. * Palliative care will continue to follow this patient throughout his hospitalization to establish trust, assist with symptom management and clarification of medical treatment goals. . (Yuliana Arana) Thank you for the opportunity to participate in the care of Mr. Mccrary . (Yuliana Arana) Attestation To help prompt me to consider important information that might be impacting today's encounter and assessment, information from prior notes written by myself or my colleagues may have been "brought forward" into today's note. My signature on this note, however, is an attestation that I personally performed the exam, history, and/or decision-making noted today, and, unless otherwise indicated, the interactions with patient, family, and staff as well as the review of records all occurred today. I also attest that the listed assessment and stated plan reflect my best clinical judgment today based on the combination of historical information, prior notes, and today's exam/ interactions. When time spent is documented, it refers only to time spent today by the signer, or if indicated, combined time spent today by collaborating physician/nurse practitioner. . (Yuliana Arana) Collaborating MD Comments . Chart reviewed. Cased discussed with palliative care PRESSER ALL AROUND. Above [employer] ALL AR[employer] note reviewed and I concur. . (Usman Bullock MD) Yuliana Arana Jul 09, 2016 14:56 Usman Bullock MD September 14, 2016 14:39
--- NOTE | 2016-07-09 18:49 | HHI.PR ---
Subjective Remarks 45 YOWM with VDRF,s/p cardiac arrest X2 Extubated Weaned to RA Good appetite No fever or chills Tolerates PO, Requires restraints Objective Vital Signs Vital Signs Date Time Temp Pulse Resp B/P Pulse Ox O2 Delivery O2 Flow Rate FiO2 07/09/16 14:00 118 07/09/16 12:00 116 07/09/16 12:00 100 Room Air 07/09/16 12:00 99.0 116 20 104/77 100 07/09/16 10:00 124 07/09/16 07:00 97 Room Air 07/09/16 07:00 109 07/09/16 07:00 98.4 109 21 87/62 95 07/09/16 03:00 98.3 105 16 91/63 95 07/09/16 03:00 95 Room Air 07/09/16 03:00 105 07/08/16 23:00 94 Room Air 07/08/16 23:00 98.0 116 14 100/77 94 07/08/16 23:00 116 07/08/16 19:00 97.8 125 26 104/76 96 07/08/16 19:00 96 Room Air 07/08/16 19:00 125 I/O 07/08/16 07/08/16 07/08/16 07/09/16 07/09/16 07/09/16 07:00 15:00 23:00 07:00 15:00 23:00 Intake Total 136 ml 180 ml 571 ml 506 ml 1492 ml Output Total 925 ml 1800 ml 900 ml 650 ml 1200 ml Balance -789 ml -1620 ml -329 ml -144 ml 292 ml Intake Oral 100 ml 180 ml 480 ml 480 ml 1440 ml IV Total 36 ml 91 ml 26 ml 52 ml Output Urine Total 925 ml 1800 ml 900 ml 650 ml 1200 ml # Bowel Movements 0 0 0 Result Diagram: 07/09/16 0502 07/09/16 0502 Objective Remarks GENERAL: WBWN male, on Vent SKIN: Warm and dry. HEAD: Normocephalic. EYES: No scleral icterus. No injection or drainage. NECK: Supple, trachea midline. No JVD or lymphadenopathy. CARDIOVASCULAR: Regular rate and rhythm without murmurs, gallops, or rubs. RESPIRATORY: Breath sounds equal bilaterally. No accessory muscle use. GASTROINTESTINAL: Abdomen soft, non-tender, nondistended. MUSCULOSKELETAL: No cyanosis, or edema. BACK: Nontender without obvious deformity. No CVA tenderness. A/P Assessment and Plan VDRF, s/p extubation 07/03 S/P cardiac arrest CHF AF COPD PLAN: Monitor lytes Stable on RA Encourage PO intake PO Tomer Birmingham MD Jul 09, 2016 18:49
[2016-07-10] VITALS (8 sets, daily range): BP systolic 93–104; BP diastolic 54–70; PULSE 59–117; RESP 16–18; TEMP 97.3–98.8; O2SAT 93–98
[2016-07-10] MEDS: MAGNESIUM HYDROXIDE SUSP 30 ML CUP PO PRN (00:34)
[2016-07-10] MEDS: ENOXAPARIN SODIUM 100 MG/ML SYRINGE SQ SCH ×2 (00:35→13:19)
[2016-07-10 05:46] LABS: HEMATOCRIT 50.4 % (39.0-51.0); MEAN CELL VOLUME 99.9 FL (80.0-100.0); MEAN CORPUSCULAR HEMOGLOBIN 34.2 PG (27.0-34.0); MEAN CORPUSCULAR HGB CONC 34.3 % (32.0-36.0); PLATELET COUNT 188 TH/MM3 (150-450); RED BLOOD COUNT 5.05 MIL/MM3 (4.50-5.90); RED CELL DISTRIBUTION WIDTH 14.2 % (11.6-17.2); REVIEW FLAG FINAL; WHITE BLOOD COUNT 10.2 TH/MM3 (4.0-11.0)
[2016-07-10] MEDS: INSULIN NovoLIN REGULAR SUPPLEMENTAL SCALE SQ SCH ×4 (06:02→21:00)
[2016-07-10 06:24] LABS: BICARBONATE 27.9 MEQ/L (21.0-32.0)
[2016-07-10 06:30] LABS: POTASSIUM 4.4 MEQ/L (3.5-5.1)
[2016-07-10] MEDS: CHLORHEXIDINE 0.12% (ORAL KIT) 15 ML CUP MT SCH ×2 (08:00→20:00)
[2016-07-10] MEDS: POTASSIUM CHLORIDE 20 MEQ CONTROLLED RELEASE TAB PO SCH ×2 (09:48→21:00)
[2016-07-10] MEDS: predniSONE 20 MG TAB PO SCH ×2 (09:48→21:01)
[2016-07-10] MEDS: THIAMINE HCL 100 MG TAB PO SCH (09:48)
[2016-07-10] MEDS: MAGNESIUM OXIDE 400 MG TAB PO SCH ×2 (09:48→21:01)
[2016-07-10] MEDS: FUROSEMIDE 40 MG TAB PO SCH ×2 (09:48→17:34)
[2016-07-10] MEDS: MULTIVITAMIN TAB PO SCH (09:48)
[2016-07-10] MEDS: SULFAMETHOXAZOLE-TRIMETHOPRIM DS 800-160 MG TAB PO SCH ×2 (09:48→21:01)
[2016-07-10] MEDS: DOCUSATE SODIUM 100 MG/10 ML UDC PO SCH ×2 (09:48→21:01)
[2016-07-10] MEDS: SODIUM CHLORIDE 0.9% FLUSH 5 ML FLUSH IV FLUSH SCH ×2 (09:49→20:58)
[2016-07-10] MEDS: FAMOTIDINE 20 MG/2 ML VIAL IV PUSH SCH ×2 (09:49→20:59)
--- NOTE | 2016-07-10 16:17 | HHI.PR ---
Subjective Remarks 45 YOWM with VDRF,s/p cardiac arrest X2 Extubated Weaned to RA Good appetite No fever or chills Tolerates PO, Objective Vital Signs Vital Signs Date Time Temp Pulse Resp B/P Pulse Ox O2 Delivery O2 Flow Rate FiO2 07/10/16 12:00 98.0 110 18 100/54 94 07/10/16 10:55 95 21 07/10/16 08:00 Room Air 07/10/16 08:00 98.6 83 18 97/63 97 07/10/16 04:15 97.3 90 16 104/70 93 07/10/16 00:03 107 07/10/16 00:00 97.4 59 16 99/58 95 07/10/16 00:00 Room Air 07/09/16 22:00 96 07/09/16 20:00 93 Nasal Cannula 2.00 07/09/16 20:00 96 07/09/16 20:00 98.3 97 18 91/66 93 07/09/16 18:00 106 I/O 07/09/16 07/09/16 07/09/16 07/10/16 07/10/16 07/10/16 07:00 15:00 23:00 07:00 15:00 23:00 Intake Total 506 ml 1492 ml 300 ml 480 ml Output Total 650 ml 1200 ml 0 ml Balance -144 ml 292 ml 300 ml 480 ml Intake Oral 480 ml 1440 ml 300 ml 480 ml IV Total 26 ml 52 ml Output Urine Total 650 ml 1200 ml 0 ml # Voids 0 # Bowel Movements 0 0 Result Diagram: 07/10/1625 07/10/16524 Objective Remarks GENERAL: WBWN male, on Vent SKIN: Warm and dry. HEAD: Normocephalic. EYES: No scleral icterus. No injection or drainage. NECK: Supple, trachea midline. No JVD or lymphadenopathy. CARDIOVASCULAR: Regular rate and rhythm without murmurs, gallops, or rubs. RESPIRATORY: Breath sounds equal bilaterally. No accessory muscle use. GASTROINTESTINAL: Abdomen soft, non-tender, nondistended. MUSCULOSKELETAL: No cyanosis, or edema. BACK: Nontender without obvious deformity. No CVA tenderness. A/P Assessment and Plan VDRF, s/p extubation 07/03 S/P cardiac arrest CHF AF COPD PLAN: Monitor lytes Stable on RA Encourage PO intake PO Bactrim Stable from Pulm standpoint Available prn over weekend. Tomer Whitlock MD Jul 10, 2016 16:17
[2016-07-10] MEDS: DOCUSATE SODIUM 50 MG/SENNA 8.6 MG TAB PO SCH (21:01)
[2016-07-11] VITALS (7 sets, daily range): BP systolic 88–106; BP diastolic 52–69; PULSE 85–102; RESP 17–20; TEMP 97.5–98.8; O2SAT 94–98
[2016-07-11] MEDS: ENOXAPARIN SODIUM 100 MG/ML SYRINGE SQ SCH ×2 (01:33→12:41)
[2016-07-11] MEDS: INSULIN NovoLIN REGULAR SUPPLEMENTAL SCALE SQ SCH ×3 (05:56→16:00)
[2016-07-11] MEDS: DOCUSATE SODIUM 50 MG/SENNA 8.6 MG TAB PO SCH ×2 (09:00→22:05)
[2016-07-11] MEDS: FUROSEMIDE 40 MG TAB PO SCH ×2 (09:00→18:06)
[2016-07-11] MEDS: predniSONE 20 MG TAB PO SCH (09:14)
[2016-07-11] MEDS: FAMOTIDINE 20 MG/2 ML VIAL IV PUSH SCH ×2 (09:14→22:06)
[2016-07-11] MEDS: DOCUSATE SODIUM 100 MG/10 ML UDC PO SCH ×2 (09:14→22:05)
[2016-07-11] MEDS: MULTIVITAMIN TAB PO SCH (09:15)
[2016-07-11] MEDS: POTASSIUM CHLORIDE 20 MEQ CONTROLLED RELEASE TAB PO SCH ×2 (09:15→22:04)
[2016-07-11] MEDS: MAGNESIUM OXIDE 400 MG TAB PO SCH ×2 (09:15→22:03)
[2016-07-11] MEDS: THIAMINE HCL 100 MG TAB PO SCH (09:15)
[2016-07-11] MEDS: SULFAMETHOXAZOLE-TRIMETHOPRIM DS 800-160 MG TAB PO SCH ×2 (09:15→22:04)
[2016-07-11] MEDS: CHLORHEXIDINE 0.12% (ORAL KIT) 15 ML CUP MT SCH (20:00)
--- NOTE | 2016-07-11 20:57 | HHI.PR ---
Subjective Remarks patient complaining of shortness of breath today. remains confused. sats good on RA. Objective Vitals Vital Signs Date Time Temp Pulse Resp B/P Pulse Ox O2 Delivery O2 Flow Rate FiO2 07/11/16 16:00 98.5 102 20 100/69 95 07/11/16 11:30 97.5 101 20 106/52 98 07/11/16 08:01 97 07/11/16 08:00 98.8 93 20 88/56 94 07/11/16 08:00 Room Air 07/11/16 04:00 97.7 85 17 90/64 95 07/11/16 00:00 98.3 88 18 92/60 94 07/10/16 21:00 Room Air I/O 07/10/16 07/10/16 07/10/16 07/11/16 07/11/16 07/11/16 07:00 15:00 23:00 07:00 15:00 23:00 Intake Total 480 ml 960 ml 450 ml 180 ml 480 ml Output Total 900 ml 925 ml Balance 480 ml 60 ml -475 ml 180 ml 480 ml Intake Oral 480 ml 960 ml 450 ml 180 ml 480 ml Output Urine Total 900 ml 925 ml # Voids 0 1 1 # Bowel Movements 0 1 1 1 Result Diagram: 07/10/16 0525 07/10/16 0525 Objective Remarks GENERAL: Well-nourished, well-developed patient. mildly anxious. SKIN: Warm and dry. HEAD: Normocephalic. EYES: No scleral icterus. No injection or drainage. NECK: Supple, trachea midline. No JVD or lymphadenopathy. CARDIOVASCULAR: Regular rate and rhythm without murmurs, gallops, or rubs. RESPIRATORY: Breath sounds equal bilaterally. No accessory muscle use. GASTROINTESTINAL: Abdomen soft, non-tender, nondistended. EXTREMITIES: No cyanosis, or edema. NEUROLOGICAL: Awake, alert, and oriented to self only. Childlike face. Non- focal. Date of Insertion: Jul 01, 2016 Date of Insertion: Jul 01, 2016 Line: Central Venous Catheter Side: Right Location: Internal, Jugular A/P Problem List: (1) Atrial fibrillation with RVR ICD Code: I48.91 Status: Acute (2) PNA (pneumonia) ICD Code: J18.9 Status: Acute (3) COPD exacerbation ICD Code: J44.1 Status: Acute (4) Elevated troponin ICD Code: R74.8 Status: Acute Assessment and Plan Possible hypoxic encephalopathy secondary to cardiac arrest Alcohol dependency History of seizure disorder Altered mental status secondary to hypoxia? confusing is improving and he follow commands. s/p Precedex treatment. 07/01 CT scan -no acute intracranial abnormality completed detox. S/P Hypoxic respiratory arrest COPD exacerbation Right lower lobe pneumonia Pulmonary edema-resolved Tobacco abuse CXR 07/01-edema resolving, decrease in left upper lobe opacity, no change in right lung opacity Bronchodilators every 6 hours schedule every 2 hours when necessary Encourage incentive spirometry Patient counseled on smoking cessation sputum grew MRSA so d/c Rocephin and azithromycin on 07/07 and now on Bactrim. he will need at least 10 days of treatment with bactrim-til 07/17. on PO prednisone 20 mg PO BID -decrease to 10 mg daily Check cxr - complains of dyspnea, anxiety related? Cardiomyopathy NSTEMI A. fib RVR PEA arrest Systolic congestive heart failure Hypotension Echo 06/30-ejection fraction 2530%, aortic valve mild regurgitation, mitral valve mild to moderate regurgitation, systolic function severely diminished, tricuspid valve trace to mild regurgitation Vasopressor support: Dobutamine Dc'd 07/03 Cardiology on boardDr. Wright follow-up recommendations Lasix 40mg PO q12h -decrease to 20 mg BID if cxr clear. diamox 500mg iv [id number] 07/03 Normotensive-MAP 70's Hypocalcemia Hyponatremia (chronic? ) Hypokalemia Hypomagnesemia replenish as needed Thrombocytopenia no signs of bleeding. due to alcoholism Monitor CBC GI Prophylaxis Pepcid twice a day DVT Prophylaxis on Lovenox Problem Qualifiers (1) PNA (pneumonia): Qualified Code: J18.1 - Pneumonia of right lower lobe due to infectious organism Bri Newton MD Jul 11, 2016 20:57
[2016-07-11] MEDS: SODIUM CHLORIDE 0.9% FLUSH 5 ML FLUSH IV FLUSH SCH ×2 (21:00→22:05)
[2016-07-11] MEDS: predniSONE 10 MG TAB PO SCH (21:30)
--- NOTE | 2016-07-11 21:59 | RADRPT ---
EXAM DATE/TIME: 07/11/2016 21:15 [facility] COMPARISON: CHEST SINGLE AP, July 04, 2016, 2:50. INDICATIONS : Cardiomyopathy. MEDICAL HISTORY : Cardiovascular disease. Seizures SURGICAL HISTORY : None. ENCOUNTER: Subsequent ACUITY: 1 week PAIN SCORE: Non-responsive. LOCATION: Bilateral chest FINDINGS: Previous basilar airspace disease has resolved. No new consolidation. No effusion. No pneumothorax. C ardiomegaly. CONCLUSION: 1. Resolution of previous basilar airspace disease. No infiltrate or effusion. Cardiomegaly. Eugene Branch MD on July 11, 2016 at 21:56 Board Certified Radiologist. This report was verified electronically.
[2016-07-12] VITALS (7 sets, daily range): BP systolic 92–107; BP diastolic 50–94; PULSE 57–97; RESP 16–20; TEMP 97.7–98.3; O2SAT 91–99
[2016-07-12] MEDS: ENOXAPARIN SODIUM 100 MG/ML SYRINGE SQ SCH (01:05)
[2016-07-12] MEDS: MULTIVITAMIN TAB PO SCH (08:54)
[2016-07-12] MEDS: MAGNESIUM OXIDE 400 MG TAB PO SCH ×2 (08:54→20:29)
[2016-07-12] MEDS: THIAMINE HCL 100 MG TAB PO SCH (08:54)
[2016-07-12] MEDS: FUROSEMIDE 40 MG TAB PO SCH ×2 (08:55→18:19)
[2016-07-12] MEDS: predniSONE 10 MG TAB PO SCH ×2 (08:55→20:29)
[2016-07-12] MEDS: DOCUSATE SODIUM 50 MG/SENNA 8.6 MG TAB PO SCH ×2 (08:55→20:30)
[2016-07-12] MEDS: SULFAMETHOXAZOLE-TRIMETHOPRIM DS 800-160 MG TAB PO SCH ×2 (08:55→20:30)
[2016-07-12] MEDS: POTASSIUM CHLORIDE 20 MEQ CONTROLLED RELEASE TAB PO SCH ×2 (08:55→20:30)
[2016-07-12] MEDS: SODIUM CHLORIDE 0.9% FLUSH 5 ML FLUSH IV FLUSH SCH ×2 (08:55→20:32)
[2016-07-12] MEDS: DOCUSATE SODIUM 100 MG/10 ML UDC PO SCH ×2 (08:55→20:28)
[2016-07-12] MEDS: FAMOTIDINE 20 MG/2 ML VIAL IV PUSH SCH (08:55)
--- NOTE | 2016-07-12 15:51 | HHI.PR ---
Subjective Remarks Patient's mentation has dramatically improved today. He is able to tell me that he was short of breath for about a month prior to coming into the hospital , which is accurate compared to his H&P. That is mother lives in [place] however he cannot remember her phone number. He does not remember me from yesterday however he is able to state that he knows he is in the hospital. He continues to complain of shortness of breath. Denies cough or wheeze. He attributes his shortness of breath to COPD. The patient states that his mind feels foggy and that he goes through periods where sometimes he is clear and sometimes it seems cloudy. He says sometimes it will seem as if the clock cancer dilating around and around. He says he feels weak. He feels short of breath. But he denies cough. He is aware that he has atrial fibrillation however was unaware that he had cardiomyopathy. He was unaware that he went into PDA. He states he has not talked to his mother since being in the hospital and is unaware she has been called. He would like to call her. I discussed with his nurse Caron who has her phone number and will help him call her. Patient states he is not sure if his mother would let him stay with her due to his long-standing history of alcoholism and noncompliance. He states he was living with hippies in the [facility] prior to coming into the hospital. He was continuing to drink at that time. Objective Vitals Vital Signs Date Time Temp Pulse Resp B/P Pulse Ox O2 Delivery O2 Flow Rate FiO2 07/12/16 09:00 Room Air 07/12/16 08:00 98.3 97 20 92/50 95 07/12/16 04:00 97.9 87 16 98/55 99 07/12/16 00:00 98.2 57 18 102/94 94 07/11/16 20:00 97.7 102 18 101/69 96 07/11/16 16:00 98.5 102 20 100/69 95 I/O 07/11/16 07/11/16 07/11/16 07/12/16 07/12/16 07/12/16 07:00 15:00 23:00 07:00 15:00 23:00 Intake Total 180 ml 480 ml 480 ml 240 ml Output Total 800 ml 300 ml Balance 180 ml 480 ml -320 ml -60 ml Intake Oral 180 ml 480 ml 480 ml 240 ml Output Urine Total 800 ml 300 ml # Voids 1 1 # Bowel Movements 1 2 0 Result Diagram: 07/10/1652407/10/16524 Objective Remarks GENERAL: Well-nourished, well-developed lean pleasant middle-aged male patient with [place] scan and he appears somewhat weathered. SKIN: Warm and dry. HEAD: Normocephalic. EYES: No scleral icterus. No injection or drainage. NECK: Supple, trachea midline. No JVD or lymphadenopathy. CARDIOVASCULAR: Irregularly irregular rate and rhythm without murmurs, gallops, or rubs. RESPIRATORY: Breath sounds equal and clear to auscultation bilaterally. No accessory muscle use on room air. GASTROINTESTINAL: Abdomen soft, non-tender, nondistended. EXTREMITIES: No cyanosis, or edema. NEUROLOGICAL: Awake, alert, and oriented to place, date, month but only after looking at the date written on the board. Patient requires assist to stand up and his gait is unsteady and the patient complains of dizziness upon standing. Date of Insertion: Jul 01, 2016 Date of Insertion: Jul 01, 2016 Line: Central Venous Catheter Side: Right Location: Internal, Jugular A/P Problem List: (1) Atrial fibrillation with RVR ICD Code: I48.91 Status: Acute (2) PNA (pneumonia) ICD Code: J18.9 Status: Acute (3) COPD exacerbation ICD Code: J44.1 Status: Acute (4) Elevated troponin ICD Code: R74.8 Status: Acute Assessment and Plan Hypoxic encephalopathy secondary to cardiac arrest Alcohol dependency History of seizure disorder confusing is greatly improved - but mental status waxes and wanes. 07/01 CT scan -no acute intracranial abnormality completed detox. CONSULT ST FOR COGNITIVE EVAL ST SWALLOW EVAL PENDING FOR WEDNESDAY - SUSPECT HE COULD TOLERATE REG DIET CONTINUE ORIENTING MEASURES SPENT APPROX 20 MINUTES WITH PATIENT DISCUSSING HIS HOSPITAL COURSE, ETOH CESSATION S/P Hypoxic respiratory arrest/PEA COPD exacerbation-resolved Right lower lobe pneumonia-resolving Pulmonary edema-resolved Dyspnea - ongoing, prehospital - likely multifactorial CHF, COPD, afib, resolving PNA Tobacco abuse CXR 07/11-clear Bronchodilators every 6 hours schedule every 2 hours when necessary Encourage incentive spirometry Patient counseled on smoking cessation sputum grew MRSA so d/c Rocephin and azithromycin on 07/07 and now on Bactrim. he will need at least 10 days of treatment with bactrim-til 07/17. on PO prednisone-->cont to taper Cardiomyopathy NSTEMI A. fib RVR PEA arrest Systolic congestive heart failure Hypotension Echo 06/30-ejection fraction 2530%, aortic valve mild regurgitation, mitral valve mild to moderate regurgitation, systolic function severely diminished, tricuspid valve trace to mild regurgitation Vasopressor support: Dobutamine Dc'd 07/03 Cardiology on boardDr. Wright follow-up recommendations Lasix 40mg PO q12h -decrease to 20 mg BID if cxr clear. diamox 500mg iv [id number] 07/03 Normotensive-MAP 70's CHECK ORTHOSTATICS BID CONSIDER DIGOXIN IF LOW BP INTERFERING WITH ACTIVITIES PATIENT NEEDS CONTINUED CHF TEACHING AND REINFORCEMENT (NEW DIAGNOSIS FOR HIM) Hypocalcemia Hyponatremia (chronic? ) Hypokalemia Hypomagnesemia replenish as needed Thrombocytopenia no signs of bleeding. due to alcoholism Monitor CBC GI Prophylaxis Pepcid twice a day DVT Prophylaxis on Lovenox Transfer to [facility] facility 5th floor for further rehab Problem Qualifiers (1) PNA (pneumonia): Qualified Code: J18.1 - Pneumonia of right lower lobe due to infectious organism Bri Newton MD Jul 12, 2016 15:51
[2016-07-12] MEDS: CHLORHEXIDINE 0.12% (ORAL KIT) 15 ML CUP MT SCH (20:00)
[2016-07-12] MEDS: APIXABAN 5 MG TABLET PO SCH (20:29)
[2016-07-13] VITALS: BP 84/73; PULSE 95; RESP 21; TEMP 97.4; O2SAT 97
[2016-07-13 08:00] VITALS: BP 86/67; PULSE 71; RESP 18; TEMP 96.2; O2SAT 97
[2016-07-13] MEDS: CHLORHEXIDINE 0.12% (ORAL KIT) 15 ML CUP MT SCH ×2 (08:00→20:00)
[2016-07-13] MEDS: DOCUSATE SODIUM 100 MG/10 ML UDC PO SCH ×2 (10:36→21:29)
[2016-07-13] MEDS: DOCUSATE SODIUM 50 MG/SENNA 8.6 MG TAB PO SCH ×2 (10:36→21:28)
[2016-07-13] MEDS: FUROSEMIDE 40 MG TAB PO SCH (10:36)
[2016-07-13] MEDS: MULTIVITAMIN TAB PO SCH (10:37)
[2016-07-13] MEDS: SULFAMETHOXAZOLE-TRIMETHOPRIM DS 800-160 MG TAB PO SCH ×2 (10:37→21:28)
[2016-07-13] MEDS: predniSONE 10 MG TAB PO SCH ×2 (10:37→21:29)
[2016-07-13] MEDS: MAGNESIUM OXIDE 400 MG TAB PO SCH ×2 (10:37→21:28)
[2016-07-13] MEDS: POTASSIUM CHLORIDE 20 MEQ CONTROLLED RELEASE TAB PO SCH ×2 (10:38→21:29)
[2016-07-13] MEDS: SODIUM CHLORIDE 0.9% FLUSH 5 ML FLUSH IV FLUSH SCH ×2 (10:39→21:00)
[2016-07-13] MEDS: THIAMINE HCL 100 MG TAB PO SCH (10:42)
--- NOTE | 2016-07-13 12:20 | HHI.PR ---
Subjective Remarks Follow-up for A. fib, CHF, pneumonia. Patient was transferred to [facility] last night to rehabilitate as he is homeless. Records were reviewed. Patient initially presented to the ED via EMS on 06/30 with complaint of chest pain, shortness of breath, productive cough. He was found to be in A. fib and was also wheezing. Apparently the patient has a long-term history of A. fib. Echocardiogram was performed which showed depressed systolic function. On 07/01 the patient went into cardiac arrest found to be in PEA. He had return of spontaneous circulation after 2 rounds of CPR and epinephrine. He was intubated and placed on a ventilator and moved to the ICU. EEG show moderate encephalopathy thought to be related to hypoxia from the cardiac arrest. The patient is an alcoholic. His clinical condition has improved. Today patient admits to a cough alternating between being dry and productive. When he does have sputum is clear. He states it feels like a "reno-sparks" in his chest. He admits to shortness of breath which he has had prior to hospitalization. He admits to getting sharp pain over the left chest which he he has had since admission, 2-3 episodes per day lasting anywhere from 3-10 seconds, somewhat pleuritic?. He additionally states he is having hallucinations seeing things on the wall and that the clock is rotating. He also states he thought the bed rails were people. He denies any vomiting or diarrhea. Objective Vitals Vital Signs Date Time Temp Pulse Resp B/P Pulse Ox O2 Delivery O2 Flow Rate FiO2 07/13/16 08:00 96.2 71 18 86/67 97 07/13/16 00:00 97.4 95 21 84/73 97 07/12/16 20:35 Room Air 07/12/16 20:00 98.1 87 18 107/56 94 07/12/16 16:00 97.7 94 20 101/56 91 I/O 07/12/16 07/12/16 07/12/16 07/13/16 07/13/16 07/13/16 07:00 15:00 23:00 07:00 15:00 23:00 Intake Total 240 ml 720 ml 0 ml 0 ml Output Total 300 ml 575 ml 0 ml 600 ml Balance -60 ml 145 ml 0 ml -600 ml Intake Oral 240 ml 720 ml 0 ml IV Total 0 ml Output Urine Total 300 ml 575 ml 0 ml 600 ml # Bowel Movements 0 2 Result Diagram: 07/10/16 0525 07/10/16 0525 Imaging Last Impressions Chest X-Ray 07/11/16 0000 Signed Impressions: Service Date/Time: Monday, July 11, 2016 21:15 - CONCLUSION: 1. Resolution of previous basilar airspace disease. No infiltrate or effusion. Cardiomegaly. Eugene Branch MD Head CT 07/01/16 192 Signed Impressions: Service Date/Time: Friday, July 01, 2016 21:13 - CONCLUSION: No acute disease. Darian Oswald MD Abdomen Ultrasound 07/01/16 0000 Signed Impressions: Service Date/Time: Friday, July 01, 2016 09:33 - CONCLUSION: Small amount of ascites seen around the liver and spleen. This is not large enough to drain. Madhav Guy MD Objective Remarks GENERAL: Pleasant well-developed patient in no apparent distress SKIN: Warm and dry. HEAD: Atraumatic. Normocephalic. EYES: Pupils equal and round. EOMs intact without nystagmus. No injection or drainage. Equivocal icterus. ENT: Mucous membranes pink and moist. CARDIOVASCULAR: Irregularly irregular rhythm. RESPIRATORY: No accessory muscle use. Clear to auscultation. Breath sounds equal bilaterally. GASTROINTESTINAL: Abdomen soft, non-tender, nondistended. MUSCULOSKELETAL: No lower extremity edema bilaterally. NEUROLOGICAL: Awake and alert. No obvious cranial nerve deficits. Normal speech. PSYCHIATRIC: Appropriate mood and affect; insight and judgment normal. Urinary Catheter: No Date of Insertion: Jul 01, 2016 Date of Removal: Jul 09, 2016 Vascular Central Line Catheter: No Date of Insertion: Jul 01, 2016 Date of Removal: Jul 06, 2016 Line: Central Venous Catheter Side: Right Location: Internal, Jugular A/P Problem List: (1) Atrial fibrillation with RVR ICD Code: I48.91 Status: Acute (2) PNA (pneumonia) ICD Code: J18.9 Status: Acute (3) COPD exacerbation ICD Code: J44.1 Status: Acute (4) Elevated troponin ICD Code: R74.8 Status: Acute Assessment and Plan Hypoxic encephalopathy secondary to cardiac arrest Alcohol dependency History of seizure disorder -EEG with moderate encephalopathy -07/01 CT scan with no acute intracranial abnormality -Confusion improved -Completed detox but still has visual hallucinations, but has good insight into this; discussed with psychiatrist who has evaluated patient and started Seroquel 50 mg po qhs. -07/13 cognitive eval within normal limits. Repeat swallow eval indicating regular consistency diet which has been changed. -Continue orienting measures -Recheck LFTs tomorrow S/P Hypoxic respiratory arrest/PEA COPD exacerbation-resolved Right lower lobe pneumonia-resolving Pulmonary edema-resolved Dyspnea - ongoing, prehospital - likely multifactorial CHF, COPD, Afib, resolving PNA Tobacco abuse -CXR 07/11-clear -Bronchodilators every 6 hours schedule every 2 hours when necessary -Encourage incentive spirometry -Patient counseled on smoking cessation -Sputum grew MRSA so Rocephin and Azithromycin discontinued on 07/07 and now on Bactrim till 07/17. -on PO prednisone-->cont to taper Cardiomyopathy/NSTEMI/A. fib RVR/PEA arrest/Systolic congestive heart failure/ Hypotension: -BNP elevated; troponin elevation -Echo 06/30: EF 2530%, aortic valve mild regurgitation, mitral valve mild to moderate regurgitation, tricuspid valve trace to mild regurgitation, systolic function severely diminished. -Echo 07/02: EF 30-35% with diffuse hypokinesis and small pericardial effusion. -Dobutamine discontinued on 07/03 -Cardiology following. -Chest x-ray on 07/11 was personally interpreted and compared to prior with no evidence of pulmonary edema. Lasix 40mg PO bid decreased to 20 mg twice a day. -Diamox was discontinued on 07/02 -Patient has been hypotensive throughout hospitalization but MAP is intact in the 70's. -Check orthostatics bid -Consider Digoxin -Needs continued CHF education -Fluid and sodium restrictions Hypocalcemia/Hyponatremia/Hypokalemia/Hypomagnesemia: Resolved. -Monitor and replete as needed Thrombocytopenia: Improved. No signs of bleeding. Due to alcoholism -Monitor CBC GI Prophylaxis: Pepcid twice a day DVT Prophylaxis: On Eliquis Discharge Planning CM following. Mother has been contacted to assist with filing for medicaid. [facility]. Change is following for benefits. Per CM, patient's mother is willing to answer questions but not assist with finances Attending Statement Patient seen. Agree with above. Problem Qualifiers (1) PNA (pneumonia): Qualified Code: J18.1 - Pneumonia of right lower lobe due to infectious organism Erika Mora Jul 13, 2016 12:20 Evangelist Guerrero MD Jul 14, 2016 07:55
[2016-07-13] MEDS: APIXABAN 5 MG TABLET PO SCH ×2 (12:48→21:29)
[2016-07-13] MEDS: FUROSEMIDE 20 MG TAB PO SCH (17:32)
--- NOTE | 2016-07-13 17:33 | PD.CONS ---
Provisional Diagnosis Admission Date Jun 30, 2016 at 01:00 Willard I. Unspecified psychosis vs delirium due to underlying medical conditions, history of bipolar disorder, alcohol, cannabis and cocaine use disorder Willard II. Deferred Willard III. Seizures, COPD, diverticulitis, A. fib, pneumonia, CHF Willard IV. Homelessness Willard V. 55 History of Present Illness Service Psychiatry Consult Requested By Primary Care Physician No Primary Care Physician HPI The patient is a 45-year-old man, homeless, single, unemployed, with psychiatric history of bipolar disorder, alcohol use disorder, cannabis and cocaine use disorder, multiple psychiatric hospitalizations, last hospitalization was in [place], [place] in 2008, no active psychiatric treatment, about 17 detox/rehabilitation program, self-mutilation by accidentals/intentional overdoses, history of incarcerations, medical history of COPD, seizures, diverticulitis, CHF, hospitalized due to Hypoxic encephalopathy secondary to cardiac arrest, Hypoxic respiratory arrest/PEA, COPD exacerbation, Right lower lobe pneumonia, Pulmonary edema, Cardiomyopathy, NSTEMI, A. fib RVR, PEA arrest, Hypocalcemia, Hyponatremia, Hypokalemia, Hypomagnesemia. Consulted to psychiatry due to new development of visual hallucinations. On psychiatric evaluation today patient is calm, cooperative, logical, coherent and relevant, with a pleasant conversation. Patient states that he is happy to be alive and been giving a second opportunity and he feels ready to take advantage of it. Patient reports good mood, good motivation, positive isn't about the future, he denies suicidal or homicidal ideation. He does endorses frequent visual hallucinations of seeing people coming inside his room and kind of geometrical figures in the wall. The last time he saw this hallucination was this morning. At time this hallucination can be anxiety provoking and kind of frightening. Patient says that this is the first time he had this kind of experience. Patient also having some difficulty sleeping at night. However, No agitation, no aggressive behavior, no paranoia, no delusions are observed during this evaluation. Patient shares that his plan to give up alcohol is to go to AA meetings that have worked for him in the past. Patient is fully oriented 3, no gross cognitive impairment observed. Patient reports daily use Vodka, about a liter per day. He also occasionally uses cocaine and marijuana, about one or 2 times per week. Review of Systems Constitutional: DENIES: Diaphoretic episodes, Fatigue, Fever, Weight gain, Weight loss, Chills, Dizziness, Change in appetite, Night Sweats Endocrine: DENIES: Heat/cold intolerance, Polydipsia, Polyuria, Polyphagia Eyes: DENIES: Blurred vision, Diplopia, Eye inflammation, Eye pain, Vision loss , Photosensitivity, Double Vision Ears, nose, mouth, throat: DENIES: Tinnitus, Hearing loss, Vertigo, Nasal discharge, Oral lesions, Throat pain, Hoarseness, Ear Pain, Running Nose, Epistaxis, Sinus Pain, Toothache, Odynophagia Respiratory: DENIES: Apneas, Cough, Snoring, Wheezing, Hemoptysis, Sputum production, Shortness of breath Cardiovascular: DENIES: Chest pain, Palpitations, Syncope, Dyspnea on Exertion , PND, Lower Extremity Edema, Orthopnea, Claudication Musculoskeletal: DENIES: Joint pain, Muscle aches, Stiffness, Joint Swelling, Back pain, Neck pain Integumentary: DENIES: Abnormal pigmentation, Nail changes, Pruritus, Rash Hematologic/lymphatic: DENIES: Bruising, Lymphadenopathy Immunologic/allergic: DENIES: Eczema, Urticaria Neurologic: DENIES: Abnormal gait, Headache, Localized weakness, Paresthesias, Seizures, Speech Problems, Tremor, Poor Balance Psychiatric: COMPLAINS OF: Hallucinations, DENIES: Anxiety, Confusion, Mood changes, Depression, Agitation, Suicidal Ideation, Homicidal Ideation, Delusions Past Family Social History Coded Allergies: *MDRO Multi-Drug Resistant Organism (Verified Adverse Reaction, Unknown, ) MRSA PCR Screen POSITIVE - 07/02/2016 MRSA (sputum)-07/02/16 No Active Prescriptions or Reported Meds Current Medications Medications (Trade) Dose Ordered Sig/Naren Route Start Time Stop Time Status Last Admin (Tylenol) 650 mg Q4H PRN PO 06/30/16 01:15 (Milk Of Magnesia Liq) 30 ml Q12H PRN PO 06/30/16 01:15 07/10/16 00:34 (Vitamin B1) 100 mg DAILY PO 06/30/16 09:00 07/13/16 10:42 (Theragran) 1 tab DAILY PO 06/30/16 09:00 07/13/16 10:37 (Mag-Ox) 400 mg Q12HR PO 06/30/16 16:30 07/13/16 10:37 (Pill Splitter) 1 ea UNSCH PRN OTHER 07/01/16 08:45 (NS Flush) 2 ml UNSCH PRN IV FLUSH 07/01/16 14:45 (NS Flush) 2 ml BID IV FLUSH 07/01/16 21:00 07/13/16 10:39 (Zofran Inj) 4 mg Q6H PRN IV 07/01/16 14:45 (Senokot) 17.2 mg Q12H PRN PO 07/01/16 14:45 Miscellaneous Information 1 Q361D XX 07/01/16 14:45 (Peridex 0.12% Liq) 15 ml BID@08,20 MT 07/01/16 20:00 07/08/16 08:00 (Colace Liq) 100 mg Q12HR PO 07/02/16 21:00 07/13/16 10:36 (Ativan Inj) 2 mg Q4H PRN IM 07/05/16 09:45 07/08/16 22:44 (Bactrim Ds 800-160 Mg) 1 tab Q12HR PO 07/07/16 10:45 07/13/16 10:37 (KCl) 20 meq Q12HR PO 07/08/16 09:00 07/13/16 10:38 (Sarah-Colace) 1 tab BID PO 07/10/16 21:00 07/13/16 10:36 (Deltasone) 10 mg BID PO 07/11/16 21:30 07/13/16 10:37 (Eliquis) 5 mg BID PO 07/12/16 21:00 07/13/16 12:48 (SEROquel) 50 mg HS PO 07/13/16 21:00 (Lasix) 20 mg BID@09,18 PO 07/13/16 18:00 Family History He denies Social History Patient was born and raised in the [facility], he is now homeless, single, he has been living in [place] since 2009, he gets supported by asking for money in the street. His highest level of education is 12th grade. Patient has been incarcerated multiple times, the longest period that he has been in intermediate is 12 months, usually drug possession and trespassing are his charges. Patient's Strengths (min. 2) Motivation to get better, verbal communication Physical Exam During examination no EPS, no tremors, no withdrawal symptoms, no stiffness are observed Vital Signs Vital Signs Date Time Temp Pulse Resp B/P Pulse Ox O2 Delivery O2 Flow Rate FiO2 07/13/16 08:00 96.2 71 18 86/67 97 07/12/16 20:35 Room Air 07/10/16 10:55 21 07/09/16 20:00 2.00 I/O 07/12/16 07/12/16 07/12/16 07:59 15:59 23:59 Intake Total 240 ml 720 ml Output Total 300 ml 575 ml Balance -60 ml 145 ml Mental Status Examination Appearance man, age appearing, disheveled, calm, cooperative and pleasant Speech: Unremarkable Orientation: x3 Memory: Unremarkable Thought Process: Logical Thought Content: Unremarkable Hallucination Type: Visual Attention and Concentration: Good Suicidal Ideation: No Previous Suicide Attempts: Yes Homicidal Ideation: No Previous Homicide Attempts: No Insight: Good Judgement: WNL Affect: Good Mood: Appropriate Motor Activity: Normal gait Assessment & Plan Problem List: (1) 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 Assessment & Plan: The patient is a 45-year-old man, homeless, single , unemployed, with psychiatric history of bipolar disorder, alcohol use disorder , cannabis and cocaine use disorder, multiple psychiatric hospitalizations, last hospitalization was in [place], [place] in 2008, no active psychiatric treatment, about 17 detox/rehabilitation program, self-mutilation by accidentals/intentional overdoses, history of incarcerations, medical history of COPD, seizures, diverticulitis, CHF, hospitalized due to Hypoxic encephalopathy secondary to cardiac arrest, Hypoxic respiratory arrest/PEA, COPD exacerbation, Right lower lobe pneumonia, Pulmonary edema, Cardiomyopathy, NSTEMI, A. fib RVR, PEA arrest, Hypocalcemia, Hyponatremia, Hypokalemia, Hypomagnesemia. Consulted to psychiatry due to new development of visual hallucinations. On psychiatric evaluation today patient is calm, cooperative, logical, coherent and relevant, with a pleasant conversation. Patient does not have any evidence of significant subjective or objective symptomatology of depression, anxiety, elisa. Patient is fully oriented 3, no attention deficit , no fluctuation of consciousness, no gross cognitive impairment observed. Patient reports new onset, about 2 or 3 days ago, of frequent, insightful, anxiety provoking at bedtime visual hallucinations. These visual hallucinations are consistent on geometrical, colorful objects moving in the roof, in the wall and the floor, sometimes people entering in the room. The frequency of visual hallucination has decrease in the last 24 hours. Last episode was this morning. The nature of visual hallucination most probably metabolic/organic in ethnology, rather than secondary to a major psychiatric condition decompensation. Patient does not meet criteria for psychiatric hospitalization at this moment. We'll start Seroquel 50 minutes at bedtime to help with his sleep and also with hallucination. Extensive support, motivation psycho location provided. Case was discussed with primary medical team and nursing charge. We'll follow-up. ICD Code: F10.251 Assessment & Plan Estimated LOS: Denny Espinoza MD Jul 13, 2016 17:33
--- NOTE | 2016-07-13 19:17 | HHI.PR ---
Subjective Remarks 45 YOWM with VDRF,s/p cardiac arrest X2 Extubated Weaned to RA Good appetite No fever or chills Tolerates PO, Objective Vital Signs Vital Signs Date Time Temp Pulse Resp B/P Pulse Ox O2 Delivery O2 Flow Rate FiO2 07/13/16 08:00 96.2 71 18 86/67 97 07/13/16 00:00 97.4 95 21 84/73 97 07/12/16 20:35 Room Air 07/12/16 20:00 98.1 87 18 107/56 94 I/O 07/12/16 07/12/16 07/12/16 07/13/16 07/13/16 07/13/16 07:00 15:00 23:00 07:00 15:00 23:00 Intake Total 240 ml 720 ml 0 ml 430 ml Output Total 300 ml 575 ml 0 ml 1200 ml Balance -60 ml 145 ml 0 ml -770 ml Intake Oral 240 ml 720 ml 0 ml 430 ml IV Total 0 ml Output Urine Total 300 ml 575 ml 0 ml 1200 ml # Bowel Movements 0 2 0 Result Diagram: 07/10/1625 07/10/16524 Objective Remarks GENERAL: WBWN male, on Vent SKIN: Warm and dry. HEAD: Normocephalic. EYES: No scleral icterus. No injection or drainage. NECK: Supple, trachea midline. No JVD or lymphadenopathy. CARDIOVASCULAR: Regular rate and rhythm without murmurs, gallops, or rubs. RESPIRATORY: Breath sounds equal bilaterally. No accessory muscle use. GASTROINTESTINAL: Abdomen soft, non-tender, nondistended. MUSCULOSKELETAL: No cyanosis, or edema. BACK: Nontender without obvious deformity. No CVA tenderness. A/P Assessment and Plan VDRF, s/p extubation 07/03 S/P cardiac arrest CHF AF COPD PLAN: Monitor lytes Stable on RA Encourage PO intake PO Bactrim Stable from Pulm standpoint Tomer Whitlock MD Jul 13, 2016 19:17
[2016-07-13 20:00] VITALS: BP 92/74; PULSE 87; RESP 20; TEMP 97.2; O2SAT 96
[2016-07-13] MEDS: QUEtiapine FUMARATE 25 MG TAB PO SCH (21:28)
[2016-07-14 07:28] LABS: INDIRECT BILIRUBIN 0.4 MG/DL (0.0-0.8); TOTAL BILIRUBIN ADULT 1.1 MG/DL (0.2-1.0)
[2016-07-14 08:00] VITALS: BP 85/67; PULSE 86; RESP 16; TEMP 96.8; O2SAT 97
[2016-07-14] MEDS: CHLORHEXIDINE 0.12% (ORAL KIT) 15 ML CUP MT SCH (08:00)
[2016-07-14] MEDS: MULTIVITAMIN TAB PO SCH (08:56)
[2016-07-14] MEDS: SULFAMETHOXAZOLE-TRIMETHOPRIM DS 800-160 MG TAB PO SCH ×2 (08:56→20:53)
[2016-07-14] MEDS: predniSONE 10 MG TAB PO SCH (08:56)
[2016-07-14] MEDS: DOCUSATE SODIUM 50 MG/SENNA 8.6 MG TAB PO SCH (08:56)
[2016-07-14] MEDS: FUROSEMIDE 20 MG TAB PO SCH ×2 (08:56→17:27)
[2016-07-14] MEDS: DOCUSATE SODIUM 100 MG/10 ML UDC PO SCH (08:56)
[2016-07-14] MEDS: MAGNESIUM OXIDE 400 MG TAB PO SCH ×2 (08:57→20:52)
[2016-07-14] MEDS: POTASSIUM CHLORIDE 20 MEQ CONTROLLED RELEASE TAB PO SCH ×2 (08:57→20:53)
[2016-07-14] MEDS: THIAMINE HCL 100 MG TAB PO SCH (08:57)
[2016-07-14] MEDS: APIXABAN 5 MG TABLET PO SCH ×2 (08:57→20:52)
[2016-07-14] MEDS: SODIUM CHLORIDE 0.9% FLUSH 5 ML FLUSH IV FLUSH SCH (09:00)
--- NOTE | 2016-07-14 17:13 | HHI.PR ---
Subjective Remarks 45 YOWM with VDRF,s/p cardiac arrest X2 Weaned to RA Good appetite No fever or chills Tolerates PO, Occ cough, no sputum Objective Vital Signs Vital Signs Date Time Temp Pulse Resp B/P Pulse Ox O2 Delivery O2 Flow Rate FiO2 07/14/16 08:00 96.8 86 16 85/67 97 07/13/16 20:00 97.2 87 20 92/74 96 I/O 07/13/16 07/13/16 07/13/16 07/14/16 07/14/16 07/14/16 07:00 15:00 23:00 07:00 15:00 23:00 Intake Total 0 ml 430 ml 240 ml 120 ml 240 ml Output Total 0 ml 1200 ml 300 ml Balance 0 ml -770 ml -60 ml 120 ml 240 ml Intake Oral 0 ml 430 ml 240 ml 120 ml 240 ml IV Total 0 ml Output Urine Total 0 ml 1200 ml 300 ml # Voids 1 1 # Bowel Movements 0 0 0 Result Diagram: 07/10/1625 07/10/16524 Objective Remarks GENERAL: WBWN male, on Vent SKIN: Warm and dry. HEAD: Normocephalic. EYES: No scleral icterus. No injection or drainage. NECK: Supple, trachea midline. No JVD or lymphadenopathy. CARDIOVASCULAR: Regular rate and rhythm without murmurs, gallops, or rubs. RESPIRATORY: Breath sounds equal bilaterally. No accessory muscle use. GASTROINTESTINAL: Abdomen soft, non-tender, nondistended. MUSCULOSKELETAL: No cyanosis, or edema. BACK: Nontender without obvious deformity. No CVA tenderness. A/P Assessment and Plan VDRF, s/p extubation 07/03 S/P cardiac arrest CHF AF COPD PLAN: Stable on RA Encourage PO intake PO Bactrim Stable from Pulm standpoint Tomer Whitlock MD Jul 14, 2016 17:13
--- NOTE | 2016-07-14 17:26 | HHI.PR ---
Subjective Remarks Patient seen and examined today. Patient denies any new complaints. Patient is alert to place, person, month, year if given a second chance answer. He does know that Pres. trumps medical plan did not pass. Patient states that he is not willing to leave the hospital this time. Because he does not think that he can handle it in the real world with his friends drinking alcohol and smoking cigarettes Objective Vitals Vital Signs Date Time Temp Pulse Resp B/P Pulse Ox O2 Delivery O2 Flow Rate FiO2 07/14/16 08:00 96.8 86 16 85/67 97 07/13/16 20:00 97.2 87 20 92/74 96 I/O 07/13/16 07/13/16 07/13/16 07/14/16 07/14/16 07/14/16 07:00 15:00 23:00 07:00 15:00 23:00 Intake Total 0 ml 430 ml 240 ml 120 ml 240 ml Output Total 0 ml 1200 ml 300 ml Balance 0 ml -770 ml -60 ml 120 ml 240 ml Intake Oral 0 ml 430 ml 240 ml 120 ml 240 ml IV Total 0 ml Output Urine Total 0 ml 1200 ml 300 ml # Voids 1 1 # Bowel Movements 0 0 0 Result Diagram: 07/10/1625 07/10/16524 Objective Remarks GENERAL: Well-developed, well-nourished, in no acute distress. alert and orientated to person, month, place, current events HEENT: Head is normocephalic without any lesions or masses noted. Facial features are symmetric. Eyes: Extraocular muscles are intact. Conjunctivae were clear. Oropharyngeal: Pharynx without any erythema edema. Tongue is midline without deviation. Buccal mucosa is moist without any masses or lesions NECK: Supple without any masses. Trachea midline no deviation. No JVD, no bruits are appreciated CARDIAC: Regular rhythm, regular rate. S1/S2 are heard. No murmurs gallops or rubs. LUNGS: Clear to auscultation bilaterally. No wheeze, rhonchi or rales. No use of accessory muscles on inspiration or expiration. ABDOMEN: Soft, nontender. Nondistended. Bowel sounds heard in all 4 quadrants. No organomegaly or masses. Negative rebound, negative guarding EXTREMITIES: No edema, pulses are equal bilaterally. No cyanosis or clubbing NEUROLOGY: Mood and affect appear appropriate. Cranial nerves II through XII grossly intact. Muscle strength 5/5 in upper and lower extremities bilaterally. Deep tendon reflexes are 2+ in upper and lower extremities bilaterally. 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 Patient is much more alert EEG does show moderate encephalopathy, CT scans of the brain did not show any acute abnormality Continue monitor mental status Speech therapy, cognitive evaluation within normal limits. Regular consisting diet Visual hallucinations, likely secondary to alcohol detoxing Psychiatry evaluated patient Patient started on Seroquel 50 mg at bedtime S/P Hypoxic respiratory respiratory failure, COPD exacerbation-resolved Patient intubated 07/01/16, extubated 07/03/16 Bronchodilators every 2 hours as needed, patient has not required any in 2 weeks, will discontinue at this time Patient still on prednisone 10 mg twice daily, will discontinue that at this time Pulmonology following the patient Right lower lobe pneumonia-resolving Sputum culture with MRSA, however nasal screen for MRSA was positive also. Could be secondary to colonization Patient on Bactrim till 07/17 Pulmonary edema-resolved Patient on Lasix Cardiomyopathy/NSTEMI/A. fib RVR/PEA arrest/Systolic congestive heart failure/ Hypotension: Status post cardiopulmonary resuscitation with return of spontaneous pulse and breathing Echo 06/30: EF 2530%, aortic valve mild regurgitation, mitral valve mild to moderate regurgitation, tricuspid valve trace to mild regurgitation, systolic function severely diminished. Echo 07/02: EF 30-35% with diffuse hypokinesis and small pericardial effusion. Cardiology was following the patient and signed off on 07/09, indicated patient stable to discharge from cardiology standpoint. Follow-up out patient setting Patient continued on Eliquis for anticoagulation Unable to use beta ganesh, HERMINIO inhibitor, calcium channel ganesh, nitrate, due to low blood pressure Hypocalcemia/Hyponatremia/Hypokalemia/Hypomagnesemia: Resolved. Monitor and replete as needed Thrombocytopenia: Improved. No signs of bleeding. Due to alcoholism Monitor CBC GI Prophylaxis: Pepcid twice a day DVT Prophylaxis: On Eliquis Discharge Planning Case management for discharge planning. Attending Statement Patient seen. Agree with above. Evangelist Woods Jul 14, 2016 17:26 Evangelist Guerrero MD Jul 14, 2016 18:36
[2016-07-14] MEDS ORDERED: ONDANSETRON ODT 4 MG TAB PO PRN (17:30)
[2016-07-14 20:00] VITALS: BP 104/64; PULSE 98; RESP 18; TEMP 97.5; O2SAT 96
[2016-07-14] MEDS: QUEtiapine FUMARATE 25 MG TAB PO SCH (20:53)
[2016-07-15 08:00] VITALS: BP 110/82; PULSE 72; RESP 16; TEMP 97.7; O2SAT 95
[2016-07-15] MEDS: THIAMINE HCL 100 MG TAB PO SCH (08:16)
[2016-07-15] MEDS: SULFAMETHOXAZOLE-TRIMETHOPRIM DS 800-160 MG TAB PO SCH ×2 (08:16→21:09)
[2016-07-15] MEDS: POTASSIUM CHLORIDE 20 MEQ CONTROLLED RELEASE TAB PO SCH ×2 (08:16→21:10)
[2016-07-15] MEDS: MULTIVITAMIN TAB PO SCH (08:16)
[2016-07-15] MEDS: APIXABAN 5 MG TABLET PO SCH ×2 (08:16→21:08)
[2016-07-15] MEDS: MAGNESIUM OXIDE 400 MG TAB PO SCH ×2 (08:16→21:10)
[2016-07-15] MEDS: FUROSEMIDE 20 MG TAB PO SCH ×2 (08:16→17:35)
[2016-07-15 08:40] LABS: AUTOMATED NEUTROPHIL # 8.1 TH/MM3 (1.8-7.7); BASOPHIL # 0.1 TH/MM3 (0-0.2); BASOPHIL % 0.6 % (0.0-2.0); EOSINOPHIL # 0.1 TH/MM3 (0-0.4); EOSINOPHIL % 1.3 % (0.0-4.0); HEMATOCRIT 50.5 % (39.0-51.0); HEMO FLAGS DIFF FINAL; LYMPH % 20.9 % (9.0-44.0); LYMPHOCYTE # 2.4 TH/MM3 (1.0-4.8); MEAN CELL VOLUME 100.4 FL (80.0-100.0); MEAN CORPUSCULAR HEMOGLOBIN 32.5 PG (27.0-34.0); MEAN CORPUSCULAR HGB CONC 32.3 % (32.0-36.0); MONO % 5.6 % (0.0-8.0); NEUT % 71.6 % (16.0-70.0); PLATELET COUNT 173 TH/MM3 (150-450); RED BLOOD COUNT 5.03 MIL/MM3 (4.50-5.90); RED CELL DISTRIBUTION WIDTH 13.8 % (11.6-17.2); WHITE BLOOD COUNT 11.3 TH/MM3 (4.0-11.0)
[2016-07-15 08:50] LABS: POTASSIUM 4.1 MEQ/L (3.5-5.1)
[2016-07-15 08:54] LABS: BICARBONATE 33.3 MEQ/L (21.0-32.0); MAGNESIUM 1.7 MG/DL (1.5-2.5)
--- NOTE | 2016-07-15 16:19 | HHI.PR ---
Subjective Remarks Patient seen and examined today. Patient is improving. Patient is eager to get out of bed and go to chair. Objective Vitals Vital Signs Date Time Temp Pulse Resp B/P Pulse Ox O2 Delivery O2 Flow Rate FiO2 07/15/16 08:00 97.7 72 16 110/82 95 07/14/16 20:00 97.5 98 18 104/64 96 I/O 07/14/16 07/14/16 07/14/16 07/15/16 07/15/16 07/15/16 07:00 15:00 23:00 07:00 15:00 23:00 Intake Total 870 ml 840 ml 240 ml Output Total 825 ml 550 ml 550 ml 500 ml Balance 45 ml 290 ml -310 ml -500 ml Intake Oral 870 ml 840 ml 240 ml Output Urine Total 825 ml 550 ml 550 ml 500 ml # Voids 1 1 # Bowel Movements 1 2 0 Result Diagram: 07/15/16 0810 07/15/16 0810 Objective Remarks GENERAL: Well-developed, well-nourished, in no acute distress. alert and orientated to person, month, place, current events HEENT: Head is normocephalic without any lesions or masses noted. Facial features are symmetric. Eyes: Extraocular muscles are intact. Conjunctivae were clear. Oropharyngeal: Pharynx without any erythema edema. Tongue is midline without deviation. Buccal mucosa is moist without any masses or lesions NECK: Supple without any masses. Trachea midline no deviation. No JVD, no bruits are appreciated CARDIAC: Regular rhythm, regular rate. S1/S2 are heard. No murmurs gallops or rubs. LUNGS: Clear to auscultation bilaterally. No wheeze, rhonchi or rales. No use of accessory muscles on inspiration or expiration. ABDOMEN: Soft, nontender. Nondistended. Bowel sounds heard in all 4 quadrants. No organomegaly or masses. Negative rebound, negative guarding EXTREMITIES: No edema, pulses are equal bilaterally. No cyanosis or clubbing NEUROLOGY: Mood and affect appear appropriate. Cranial nerves II through XII grossly intact. Muscle strength 5/5 in upper and lower extremities bilaterally. Deep tendon reflexes are 2+ in upper and lower extremities bilaterally. 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 Patient is much more alert EEG does show moderate encephalopathy, CT scans of the brain did not show any acute abnormality Continue monitor mental status Speech therapy, cognitive evaluation within normal limits. Regular consisting diet Visual hallucinations, likely secondary to alcohol detoxing Psychiatry evaluated patient Patient started on Seroquel 50 mg at bedtime S/P Hypoxic respiratory respiratory failure, COPD exacerbation-resolved Patient intubated 07/01/16, extubated 07/03/16 Bronchodilators every 2 hours as needed, patient has not required any in 2 weeks, will discontinue at this time Patient still on prednisone 10 mg twice daily, will discontinue that at this time Pulmonology following the patient Right lower lobe pneumonia-resolving Sputum culture with MRSA, however nasal screen for MRSA was positive also. Could be secondary to colonization Patient on Bactrim till 07/17 Pulmonary edema-resolved Patient on Lasix Cardiomyopathy/NSTEMI/A. fib RVR/PEA arrest/Systolic congestive heart failure/ Hypotension: Status post cardiopulmonary resuscitation with return of spontaneous pulse and breathing Echo 06/30: EF 2530%, aortic valve mild regurgitation, mitral valve mild to moderate regurgitation, tricuspid valve trace to mild regurgitation, systolic function severely diminished. Echo 07/02: EF 30-35% with diffuse hypokinesis and small pericardial effusion. Cardiology was following the patient and signed off on 07/09, indicated patient stable to discharge from cardiology standpoint. Follow-up out patient setting Patient continued on Eliquis for anticoagulation Unable to use beta ganesh, HERMINIO inhibitor, calcium channel ganesh, nitrate, due to low blood pressure Hypocalcemia/Hyponatremia/Hypokalemia/Hypomagnesemia: Resolved. Monitor and replete as needed Thrombocytopenia: Improved. No signs of bleeding. Due to alcoholism Monitor CBC GI Prophylaxis: Pepcid twice a day DVT Prophylaxis: On Eliquis Discharge Planning Case management for discharge planning. Attending Statement Patient seen. Agree with above. Evangelist Woods Jul 15, 2016 16:19 Evangelist Guerrero MD Jul 15, 2016 18:02
--- NOTE | 2016-07-15 17:27 | HHI.PR ---
Subjective Remarks 45 YOWM with VDRF,s/p cardiac arrest X2 Weaned to RA Good appetite No fever or chills Occ cough, no sputum Participates with Therapy Objective Vital Signs Vital Signs Date Time Temp Pulse Resp B/P Pulse Ox O2 Delivery O2 Flow Rate FiO2 07/15/16 08:00 97.7 72 16 110/82 95 07/14/16 20:00 97.5 98 18 104/64 96 I/O 07/14/16 07/14/16 07/14/16 07/15/16 07/15/16 07/15/16 07:00 15:00 23:00 07:00 15:00 23:00 Intake Total 870 ml 840 ml 240 ml Output Total 825 ml 550 ml 550 ml 500 ml Balance 45 ml 290 ml -310 ml -500 ml Intake Oral 870 ml 840 ml 240 ml Output Urine Total 825 ml 550 ml 550 ml 500 ml # Voids 1 1 # Bowel Movements 1 2 0 Result Diagram: 07/15/16 0810 07/15/16 0810 Objective Remarks GENERAL: WBWN male, on Vent SKIN: Warm and dry. HEAD: Normocephalic. EYES: No scleral icterus. No injection or drainage. NECK: Supple, trachea midline. No JVD or lymphadenopathy. CARDIOVASCULAR: Regular rate and rhythm without murmurs, gallops, or rubs. RESPIRATORY: Breath sounds equal bilaterally. No accessory muscle use. GASTROINTESTINAL: Abdomen soft, non-tender, nondistended. MUSCULOSKELETAL: No cyanosis, or edema. BACK: Nontender without obvious deformity. No CVA tenderness. A/P Assessment and Plan VDRF, s/p extubation 07/03 S/P cardiac arrest CHF AF COPD PLAN: Stable on RA Encourage PO intake PO Bactrim Stable from Pulm standpoint Diurease monitor Tomer Mata MD Jul 15, 2016 17:27
[2016-07-15 20:00] VITALS: BP 94/80; PULSE 101; RESP 20; TEMP 97.6; O2SAT 98
[2016-07-15] MEDS: QUEtiapine FUMARATE 25 MG TAB PO SCH (21:08)
[2016-07-16 08:15] VITALS: BP_SYST 77; BP_SYST 80; BP_DIAS 69; PULSE 79; PULSE 99; RESP 18; TEMP 97.8; O2SAT 96
[2016-07-16] MEDS: MAGNESIUM OXIDE 400 MG TAB PO SCH ×2 (08:16→20:50)
[2016-07-16] MEDS: POTASSIUM CHLORIDE 20 MEQ CONTROLLED RELEASE TAB PO SCH ×2 (08:16→20:51)
[2016-07-16] MEDS: THIAMINE HCL 100 MG TAB PO SCH (08:16)
[2016-07-16] MEDS: MULTIVITAMIN TAB PO SCH (08:16)
[2016-07-16] MEDS: SULFAMETHOXAZOLE-TRIMETHOPRIM DS 800-160 MG TAB PO SCH ×2 (08:16→20:50)
[2016-07-16] MEDS: APIXABAN 5 MG TABLET PO SCH ×2 (08:16→20:51)
[2016-07-16] MEDS: FUROSEMIDE 20 MG TAB PO SCH ×2 (08:17→09:00)
--- NOTE | 2016-07-16 10:24 | HHI.PR ---
Subjective Remarks Patient seen and examined today. Patient states that is very eager to get up and start being more motivated. Patient does have low blood pressure, however he does have cardiomyopathy with ejection fraction 30-35%. Patient map has always been [id number]. Objective Vitals Vital Signs Date Time Temp Pulse Resp B/P Pulse Ox O2 Delivery O2 Flow Rate FiO2 07/16/16 08:15 97.8 99 18 77/69 96 07/16/16 08:15 79 80/69 07/15/16 20:00 97.6 101 20 94/80 98 I/O 07/15/16 07/15/16 07/15/16 07/16/16 07/16/16 07/16/16 07:00 15:00 23:00 07:00 15:00 23:00 Intake Total 240 ml 240 ml 560 ml Output Total 550 ml 500 ml 600 ml Balance -310 ml -260 ml -40 ml Intake Oral 240 ml 240 ml 560 ml Output Urine Total 550 ml 500 ml 600 ml # Voids 2 # Bowel Movements 0 0 0 Result Diagram: 07/15/16 0810 07/15/16 0810 Objective Remarks GENERAL: Well-developed, well-nourished, in no acute distress. alert and orientated to person, month, place, current events HEENT: Head is normocephalic without any lesions or masses noted. Facial features are symmetric. Eyes: Extraocular muscles are intact. Conjunctivae were clear. Oropharyngeal: Pharynx without any erythema edema. Tongue is midline without deviation. Buccal mucosa is moist without any masses or lesions NECK: Supple without any masses. Trachea midline no deviation. No JVD, no bruits are appreciated CARDIAC: Regular rhythm, regular rate. S1/S2 are heard. No murmurs gallops or rubs. LUNGS: Clear to auscultation bilaterally. No wheeze, rhonchi or rales. No use of accessory muscles on inspiration or expiration. ABDOMEN: Soft, nontender. Nondistended. Bowel sounds heard in all 4 quadrants. No organomegaly or masses. Negative rebound, negative guarding EXTREMITIES: No edema, pulses are equal bilaterally. No cyanosis or clubbing NEUROLOGY: Mood and affect appear appropriate. Cranial nerves II through XII grossly intact. Muscle strength 5/5 in upper and lower extremities bilaterally. Deep tendon reflexes are 2+ in upper and lower extremities bilaterally. 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 Patient is much more alert EEG does show moderate encephalopathy, CT scans of the brain did not show any acute abnormality Continue monitor mental status Speech therapy, cognitive evaluation within normal limits. Regular consisting diet Visual hallucinations, likely secondary to alcohol detoxing Psychiatry evaluated patient Patient started on Seroquel 50 mg at bedtime S/P Hypoxic respiratory respiratory failure, COPD exacerbation-resolved Patient intubated 07/01/16, extubated 07/03/16 Bronchodilators every 2 hours as needed, patient has not required any in 2 weeks, will discontinue at this time Patient continued on prednisone 10 mg twice daily, will discontinue that at this time Pulmonology following the patient Right lower lobe pneumonia-resolving Sputum culture with MRSA, however nasal screen for MRSA was positive also. Could be secondary to colonization Patient on Bactrim till 07/17 Pulmonary edema-resolved Patient on Lasix, will reduce to 20 mg daily Cardiomyopathy/NSTEMI/A. fib RVR/PEA arrest/Systolic congestive heart failure/ Hypotension: Status post cardiopulmonary resuscitation with return of spontaneous pulse and breathing Echo 06/30: EF 2530%, aortic valve mild regurgitation, mitral valve mild to moderate regurgitation, tricuspid valve trace to mild regurgitation, systolic function severely diminished. Echo 07/02: EF 30-35% with diffuse hypokinesis and small pericardial effusion. Cardiology was following the patient and signed off on 07/09, indicated patient stable to discharge from cardiology standpoint. Follow-up out patient setting Patient continued on Eliquis for anticoagulation Unable to use beta ganesh, HERMINIO inhibitor, calcium channel ganesh, nitrate, due to low blood pressure. The patient significant cardiomyopathy systolic blood pressure 8090 is appropriate as long as map is staying above 65 Hypocalcemia/Hyponatremia/Hypokalemia/Hypomagnesemia: Resolved. Monitor and replete as needed Thrombocytopenia: Improved. No signs of bleeding. Due to alcoholism Monitor CBC GI Prophylaxis: Pepcid twice a day DVT Prophylaxis: On Eliquis Discharge Planning Case management for discharge planning. Awaiting PT clearance for discharge Evangelist Woods Jul 16, 2016 10:24
--- NOTE | 2016-07-16 18:23 | HHI.PR ---
Subjective Remarks 45 YOWM with VDRF,s/p cardiac arrest X2 Weaned to RA Good appetite No fever or chills Occ cough, no sputum Was weak, low BP, better now Objective Vital Signs Vital Signs Date Time Temp Pulse Resp B/P Pulse Ox O2 Delivery O2 Flow Rate FiO2 07/16/16 08:15 97.8 99 18 77/69 96 07/16/16 08:15 79 80/69 07/15/16 20:00 97.6 101 20 94/80 98 I/O 07/15/16 07/15/16 07/15/16 07/16/16 07/16/16 07/16/16 07:00 15:00 23:00 07:00 15:00 23:00 Intake Total 240 ml 240 ml 560 ml Output Total 550 ml 500 ml 600 ml 700 ml Balance -310 ml -260 ml -40 ml -700 ml Intake Oral 240 ml 240 ml 560 ml Output Urine Total 550 ml 500 ml 600 ml 700 ml # Voids 2 1 # Bowel Movements 0 0 0 Result Diagram: 07/15/16 0810 07/15/16 0810 Objective Remarks GENERAL: WBWN male, on Vent SKIN: Warm and dry. HEAD: Normocephalic. EYES: No scleral icterus. No injection or drainage. NECK: Supple, trachea midline. No JVD or lymphadenopathy. CARDIOVASCULAR: Regular rate and rhythm without murmurs, gallops, or rubs. RESPIRATORY: Breath sounds equal bilaterally. No accessory muscle use. GASTROINTESTINAL: Abdomen soft, non-tender, nondistended. MUSCULOSKELETAL: No cyanosis, or edema. BACK: Nontender without obvious deformity. No CVA tenderness. A/P Assessment and Plan VDRF, s/p extubation 07/03 S/P cardiac arrest CHF AF COPD PLAN: Stable on RA Encourage PO intake PO Bactrim Stable from Pulm standpoint Monitor BP Tomer Whitlock MD Jul 16, 2016 18:23
[2016-07-16 20:00] VITALS: BP 87/64; PULSE 103; RESP 21; TEMP 97.7; O2SAT 96
[2016-07-16] MEDS: QUEtiapine FUMARATE 25 MG TAB PO SCH (20:50)
[2016-07-17 08:20] VITALS: BP 100/62; PULSE 100; RESP 18; TEMP 97.6; O2SAT 99
[2016-07-17] MEDS: MULTIVITAMIN TAB PO SCH (09:20)
[2016-07-17] MEDS: APIXABAN 5 MG TABLET PO SCH ×2 (09:20→21:39)
[2016-07-17] MEDS: THIAMINE HCL 100 MG TAB PO SCH (09:20)
[2016-07-17] MEDS: FUROSEMIDE 20 MG TAB PO SCH (09:20)
[2016-07-17] MEDS: MAGNESIUM OXIDE 400 MG TAB PO SCH ×2 (09:20→21:40)
[2016-07-17] MEDS: POTASSIUM CHLORIDE 20 MEQ CONTROLLED RELEASE TAB PO SCH ×2 (09:20→21:38)
[2016-07-17] MEDS: SULFAMETHOXAZOLE-TRIMETHOPRIM DS 800-160 MG TAB PO SCH ×2 (09:20→21:38)
--- NOTE | 2016-07-17 11:52 | HHI.PR ---
Subjective Remarks Patient seen and examined today. Patient states that he feels that his vision has gotten worse since being in the hospital. Now he has to extend his arm completely out in order to read the newspaper. Objective Vitals Vital Signs Date Time Temp Pulse Resp B/P Pulse Ox O2 Delivery O2 Flow Rate FiO2 07/17/16 08:20 97.6 100 18 100/62 99 07/16/16 20:00 97.7 103 21 87/64 96 I/O 07/16/16 07/16/16 07/16/16 07/17/16 07/17/16 07/17/16 07:00 15:00 23:00 07:00 15:00 23:00 Intake Total 560 ml 240 ml 240 ml 420 ml Output Total 600 ml 900 ml 800 ml Balance -40 ml -660 ml -560 ml 420 ml Intake Oral 560 ml 240 ml 240 ml 420 ml Output Urine Total 600 ml 900 ml 800 ml # Voids 1 1 # Bowel Movements 0 1 Result Diagram: 07/15/16 0810 07/15/16 0810 Objective Remarks GENERAL: Well-developed, well-nourished, in no acute distress. alert and orientated to person, month, place, current events HEENT: Head is normocephalic without any lesions or masses noted. Facial features are symmetric. Eyes: Extraocular muscles are intact. Conjunctivae were clear. Oropharyngeal: Pharynx without any erythema edema. Tongue is midline without deviation. Buccal mucosa is moist without any masses or lesions NECK: Supple without any masses. Trachea midline no deviation. No JVD, no bruits are appreciated CARDIAC: Regular rhythm, regular rate. S1/S2 are heard. No murmurs gallops or rubs. LUNGS: Clear to auscultation bilaterally. No wheeze, rhonchi or rales. No use of accessory muscles on inspiration or expiration. ABDOMEN: Soft, nontender. Nondistended. Bowel sounds heard in all 4 quadrants. No organomegaly or masses. Negative rebound, negative guarding EXTREMITIES: No edema, pulses are equal bilaterally. No cyanosis or clubbing NEUROLOGY: Mood and affect appear appropriate. Cranial nerves II through XII grossly intact. Muscle strength 5/5 in upper and lower extremities bilaterally. Deep tendon reflexes are 2+ in upper and lower extremities bilaterally. 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 Patient is much more alert EEG does show moderate encephalopathy, CT scans of the brain did not show any acute abnormality Continue monitor mental status Speech therapy, cognitive evaluation within normal limits. Regular consisting diet Visual hallucinations, likely secondary to alcohol detoxing Psychiatry evaluated patient Patient started on Seroquel 50 mg at bedtime S/P Hypoxic respiratory respiratory failure, COPD exacerbation-resolved Patient intubated 07/01/16, extubated 07/03/16 Bronchodilators every 2 hours as needed, patient has not required any in 2 weeks, will discontinue at this time Patient continued on prednisone 10 mg twice daily, will discontinue that at this time Pulmonology following the patient Right lower lobe pneumonia-resolving Sputum culture with MRSA, however nasal screen for MRSA was positive also. Could be secondary to colonization Patient on Bactrim till 07/17 Pulmonary edema-resolved Patient on Lasix, will reduce to 20 mg daily Cardiomyopathy/NSTEMI/A. fib RVR/PEA arrest/Systolic congestive heart failure/ Hypotension: Status post cardiopulmonary resuscitation with return of spontaneous pulse and breathing Echo 06/30: EF 2530%, aortic valve mild regurgitation, mitral valve mild to moderate regurgitation, tricuspid valve trace to mild regurgitation, systolic function severely diminished. Echo 07/02: EF 30-35% with diffuse hypokinesis and small pericardial effusion. Cardiology was following the patient and signed off on 07/09, indicated patient stable to discharge from cardiology standpoint. Follow-up out patient setting Patient continued on Eliquis for anticoagulation Unable to use beta ganesh, HERMINIO inhibitor, calcium channel ganesh, nitrate, due to low blood pressure. The patient significant cardiomyopathy systolic blood pressure 8090 is appropriate as long as map is staying above 65 Hypocalcemia/Hyponatremia/Hypokalemia/Hypomagnesemia: Resolved. Monitor and replete as needed Thrombocytopenia: Improved. No signs of bleeding. Due to alcoholism Monitor CBC GI Prophylaxis: Pepcid twice a day DVT Prophylaxis: On Eliquis Discharge Planning Case management for discharge planning. Awaiting PT clearance for discharge Evangelist Woods Jul 17, 2016 11:52
--- NOTE | 2016-07-17 17:47 | HHI.PR ---
Subjective Remarks 45 YOWM with VDRF,s/p cardiac arrest X2 Good appetite No fever or chills Occ cough, no sputum Feels better Objective Vital Signs Vital Signs Date Time Temp Pulse Resp B/P Pulse Ox O2 Delivery O2 Flow Rate FiO2 07/17/16 08:20 97.6 100 18 100/62 99 07/16/16 20:00 97.7 103 21 87/64 96 I/O 07/16/16 07/16/16 07/16/16 07/17/16 07/17/16 07/17/16 07:00 15:00 23:00 07:00 15:00 23:00 Intake Total 560 ml 240 ml 240 ml 420 ml Output Total 600 ml 900 ml 800 ml Balance -40 ml -660 ml -560 ml 420 ml Intake Oral 560 ml 240 ml 240 ml 420 ml Output Urine Total 600 ml 900 ml 800 ml # Voids 1 1 # Bowel Movements 0 1 Result Diagram: 07/15/16 0810 07/15/16 0810 Objective Remarks GENERAL: WBWN male, on Vent SKIN: Warm and dry. HEAD: Normocephalic. EYES: No scleral icterus. No injection or drainage. NECK: Supple, trachea midline. No JVD or lymphadenopathy. CARDIOVASCULAR: Regular rate and rhythm without murmurs, gallops, or rubs. RESPIRATORY: Breath sounds equal bilaterally. No accessory muscle use. GASTROINTESTINAL: Abdomen soft, non-tender, nondistended. MUSCULOSKELETAL: No cyanosis, or edema. BACK: Nontender without obvious deformity. No CVA tenderness. A/P Assessment and Plan VDRF, s/p extubation 07/03 S/P cardiac arrest CHF AF COPD PLAN: Stable on RA Encourage PO intake PO Bactrim Stable from Pulm standpoint Tomer Whitlock MD Jul 17, 2016 17:47
[2016-07-17 20:00] VITALS: BP 124/76; PULSE 66; RESP 21; TEMP 99.4; O2SAT 97
[2016-07-17] MEDS: QUEtiapine FUMARATE 25 MG TAB PO SCH (21:40)
[2016-07-18 08:00] VITALS: BP 85/70; PULSE 76; RESP 18; TEMP 98.5; O2SAT 97
[2016-07-18] MEDS: FUROSEMIDE 20 MG TAB PO SCH (10:01)
[2016-07-18] MEDS: MULTIVITAMIN TAB PO SCH (10:01)
[2016-07-18] MEDS: SULFAMETHOXAZOLE-TRIMETHOPRIM DS 800-160 MG TAB PO SCH ×2 (10:01→20:43)
[2016-07-18] MEDS: THIAMINE HCL 100 MG TAB PO SCH (10:01)
[2016-07-18] MEDS: POTASSIUM CHLORIDE 20 MEQ CONTROLLED RELEASE TAB PO SCH ×2 (10:01→20:44)
[2016-07-18] MEDS: APIXABAN 5 MG TABLET PO SCH ×2 (10:01→20:43)
[2016-07-18] MEDS: MAGNESIUM OXIDE 400 MG TAB PO SCH ×2 (10:01→20:43)
--- NOTE | 2016-07-18 11:21 | HHI.PR ---
Subjective Remarks Patient seen and examined today. Patient denies any new complaints. No change in clinical status. Patient states that he got up and walked a short distance yesterday. He plans on increasing his strength so he can leave the hospital. Objective Vitals Vital Signs Date Time Temp Pulse Resp B/P Pulse Ox O2 Delivery O2 Flow Rate FiO2 07/18/16 08:00 98.5 76 18 85/70 97 07/17/16 20:00 99.4 66 21 124/76 97 I/O 07/17/16 07/17/16 07/17/16 07/18/16 07/18/16 07/18/16 07:00 15:00 23:00 07:00 15:00 23:00 Intake Total 240 ml 420 ml 360 ml 480 ml 100 ml Output Total 800 ml 700 ml 500 ml Balance -560 ml 420 ml -340 ml -20 ml 100 ml Intake Oral 240 ml 420 ml 360 ml 480 ml 100 ml Output Urine Total 800 ml 700 ml 500 ml # Voids 1 # Bowel Movements 1 Result Diagram: 07/15/16 0810 07/15/16 0810 Objective Remarks GENERAL: Well-developed, well-nourished, in no acute distress. alert and orientated to person, month, place, current events HEENT: Head is normocephalic without any lesions or masses noted. Facial features are symmetric. Eyes: Extraocular muscles are intact. Conjunctivae were clear. Oropharyngeal: Pharynx without any erythema edema. Tongue is midline without deviation. Buccal mucosa is moist without any masses or lesions NECK: Supple without any masses. Trachea midline no deviation. No JVD, no bruits are appreciated CARDIAC: Regular rhythm, regular rate. S1/S2 are heard. No murmurs gallops or rubs. LUNGS: Clear to auscultation bilaterally. No wheeze, rhonchi or rales. No use of accessory muscles on inspiration or expiration. ABDOMEN: Soft, nontender. Nondistended. Bowel sounds heard in all 4 quadrants. No organomegaly or masses. Negative rebound, negative guarding EXTREMITIES: No edema, pulses are equal bilaterally. No cyanosis or clubbing NEUROLOGY: Mood and affect appear appropriate. Cranial nerves II through XII grossly intact. Muscle strength 5/5 in upper and lower extremities bilaterally. Deep tendon reflexes are 2+ in upper and lower extremities bilaterally. Urinary Catheter: No Date of Insertion: Jul 01, 2016 Date of Removal: Jul 09, 2016 Vascular Central Line Catheter: No Date of Insertion: Jul 01, 2016 Date of Removal: Jul 06, 2016 A/P Assessment and Plan Encephalopathy: Significantly improved. 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 Patient is much more alert EEG does show moderate encephalopathy, CT scans of the brain did not show any acute abnormality Continue monitor mental status Speech therapy, cognitive evaluation within normal limits. Regular consisting diet Deconditioning Continue physical therapy on a daily basis. Patient only walked 26 feet Physical therapy has not given any discharge disposition Visual hallucinations, likely secondary to alcohol detoxing Psychiatry evaluated patient Patient started on Seroquel 50 mg at bedtime S/P Hypoxic respiratory respiratory failure, COPD exacerbation-resolved Patient intubated 07/01/16, extubated 07/03/16 Bronchodilators every 2 hours as needed, patient has not required any in 2 weeks, will discontinue at this time Patient continued on prednisone 10 mg twice daily, will discontinue that at this time Pulmonology following the patient Right lower lobe pneumonia-resolving Sputum culture with MRSA, however nasal screen for MRSA was positive also. Could be secondary to colonization Patient on Bactrim till 07/17 Pulmonary edema-resolved Patient on Lasix, will reduce to 20 mg daily Cardiomyopathy/NSTEMI/A. fib RVR/PEA arrest/Systolic congestive heart failure/ Hypotension: Status post cardiopulmonary resuscitation with return of spontaneous pulse and breathing Echo 06/30: EF 2530%, aortic valve mild regurgitation, mitral valve mild to moderate regurgitation, tricuspid valve trace to mild regurgitation, systolic function severely diminished. Echo 07/02: EF 30-35% with diffuse hypokinesis and small pericardial effusion. Cardiology was following the patient and signed off on 07/09, indicated patient stable to discharge from cardiology standpoint. Follow-up out patient setting Patient continued on Eliquis for anticoagulation Unable to use beta ganesh, HERMINIO inhibitor, calcium channel ganesh, nitrate, due to low blood pressure. The patient significant cardiomyopathy systolic blood pressure 8090 is appropriate as long as map is staying above 65 Hypocalcemia/Hyponatremia/Hypokalemia/Hypomagnesemia: Resolved. Monitor and replete as needed Thrombocytopenia: Improved. No signs of bleeding. Due to alcoholism Monitor CBC GI Prophylaxis: Pepcid twice a day DVT Prophylaxis: On Eliquis Discharge Planning Case management for discharge planning. Awaiting PT clearance for discharge Evangelist Woods Jul 18, 2016 11:21
[2016-07-18 20:00] VITALS: BP_SYST 84; BP_SYST 99; BP_DIAS 71; BP_DIAS 82; PULSE 99; RESP 20; TEMP 97.6; O2SAT 96
[2016-07-18] MEDS: QUEtiapine FUMARATE 25 MG TAB PO SCH (20:44)
[2016-07-19 08:00] VITALS: BP_SYST 93; BP_SYST 94; BP_DIAS 53; BP_DIAS 80; PULSE 84; RESP 18; TEMP 97.6; O2SAT 96
[2016-07-19] MEDS: THIAMINE HCL 100 MG TAB PO SCH (08:59)
[2016-07-19] MEDS: FUROSEMIDE 20 MG TAB PO SCH ×2 (08:59→09:00)
[2016-07-19] MEDS: SULFAMETHOXAZOLE-TRIMETHOPRIM DS 800-160 MG TAB PO SCH ×2 (08:59→20:15)
[2016-07-19] MEDS: MULTIVITAMIN TAB PO SCH (08:59)
[2016-07-19] MEDS: POTASSIUM CHLORIDE 20 MEQ CONTROLLED RELEASE TAB PO SCH (08:59)
[2016-07-19] MEDS: APIXABAN 5 MG TABLET PO SCH ×2 (08:59→20:15)
[2016-07-19] MEDS: MAGNESIUM OXIDE 400 MG TAB PO SCH ×2 (09:00→20:15)
--- NOTE | 2016-07-19 10:27 | HHI.PR ---
Subjective Remarks Patient seen and examined today. Patient is new complaints. Patient very eager to improve. Objective Vitals Vital Signs Date Time Temp Pulse Resp B/P Pulse Ox O2 Delivery O2 Flow Rate FiO2 07/19/16 08:00 97.6 84 18 93/80 96 93/55 94/53 07/18/16 20:00 97.6 99 20 84/71 96 99/82 I/O 07/18/16 07/18/16 07/18/16 07/19/16 07/19/16 07/19/16 07:00 15:00 23:00 07:00 15:00 23:00 Intake Total 480 ml 620 ml 1060 ml 480 ml Output Total 500 ml 400 ml 1025 ml 1050 ml Balance -20 ml 220 ml 35 ml -570 ml Intake Oral 480 ml 620 ml 580 ml 480 ml Oral Supplement 480 ml Output Urine Total 500 ml 400 ml 1025 ml 1050 ml # Bowel Movements 1 0 0 Result Diagram: 07/15/16 0810 07/15/16 0810 Objective Remarks GENERAL: Well-developed, well-nourished, in no acute distress. alert and orientated to person, month, place, current events HEENT: Head is normocephalic without any lesions or masses noted. Facial features are symmetric. Eyes: Extraocular muscles are intact. Conjunctivae were clear. Oropharyngeal: Pharynx without any erythema edema. Tongue is midline without deviation. Buccal mucosa is moist without any masses or lesions NECK: Supple without any masses. Trachea midline no deviation. No JVD, no bruits are appreciated CARDIAC: Regular rhythm, regular rate. S1/S2 are heard. No murmurs gallops or rubs. LUNGS: Clear to auscultation bilaterally. No wheeze, rhonchi or rales. No use of accessory muscles on inspiration or expiration. ABDOMEN: Soft, nontender. Nondistended. Bowel sounds heard in all 4 quadrants. No organomegaly or masses. Negative rebound, negative guarding EXTREMITIES: No edema, pulses are equal bilaterally. No cyanosis or clubbing NEUROLOGY: Mood and affect appear appropriate. Cranial nerves II through XII grossly intact. Muscle strength 5/5 in upper and lower extremities bilaterally. Deep tendon reflexes are 2+ in upper and lower extremities bilaterally. Urinary Catheter: No Date of Insertion: Jul 01, 2016 Date of Removal: Jul 09, 2016 Vascular Central Line Catheter: No Date of Insertion: Jul 01, 2016 Date of Removal: Jul 06, 2016 A/P Assessment and Plan Encephalopathy: Significantly improved. 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 Patient is much more alert EEG does show moderate encephalopathy, CT scans of the brain did not show any acute abnormality Continue monitor mental status Speech therapy, cognitive evaluation within normal limits. Regular consisting diet Deconditioning Continue physical therapy on a daily basis. Patient only walked 26 feet Physical therapy has not given any discharge disposition Visual hallucinations, likely secondary to alcohol detoxing Psychiatry evaluated patient Patient started on Seroquel 50 mg at bedtime S/P Hypoxic respiratory respiratory failure, COPD exacerbation-resolved Patient intubated 07/01/16, extubated 07/03/16 Bronchodilators every 2 hours as needed, patient has not required any in 2 weeks, will discontinue at this time Patient continued on prednisone 10 mg twice daily, will discontinue that at this time Pulmonology following the patient Right lower lobe pneumonia-resolving Sputum culture with MRSA, however nasal screen for MRSA was positive also. Could be secondary to colonization Patient on Bactrim till 07/21 Pulmonary edema-resolved Discontinue Lasix, no signs of shortness of breath. Patient with low blood pressure. Cardiomyopathy/NSTEMI/A. fib RVR/PEA arrest/Systolic congestive heart failure/ Hypotension: Status post cardiopulmonary resuscitation with return of spontaneous pulse and breathing Echo 06/30: EF 2530%, aortic valve mild regurgitation, mitral valve mild to moderate regurgitation, tricuspid valve trace to mild regurgitation, systolic function severely diminished. Echo 07/02: EF 30-35% with diffuse hypokinesis and small pericardial effusion. Cardiology was following the patient and signed off on 07/09, indicated patient stable to discharge from cardiology standpoint. Follow-up out patient setting Patient continued on Eliquis for anticoagulation Unable to use beta ganesh, HERMINIO inhibitor, calcium channel ganesh, nitrate, due to low blood pressure. The patient significant cardiomyopathy systolic blood pressure 8090 is appropriate as long as map is staying above 65 Hypocalcemia/Hyponatremia/Hypokalemia/Hypomagnesemia: Resolved. Monitor and replete as needed Thrombocytopenia: Improved. No signs of bleeding. Due to alcoholism Monitor CBC GI Prophylaxis: Pepcid twice a day DVT Prophylaxis: On Eliquis Discharge Planning Case management for discharge planning. Awaiting PT clearance for discharge Evangelist Woods Jul 19, 2016 10:27
[2016-07-19 20:00] VITALS: BP_SYST 80; BP_SYST 96; BP_DIAS 64; BP_DIAS 68; BP_DIAS 70; PULSE 90; RESP 20; TEMP 98.7; O2SAT 94
[2016-07-19] MEDS: QUEtiapine FUMARATE 25 MG TAB PO SCH (20:15)
[2016-07-20 08:00] VITALS: BP 100/80; PULSE 71; RESP 20; TEMP 96.8
[2016-07-20 08:03] VITALS: BP 100/65; PULSE 71
[2016-07-20 08:06] VITALS: BP 90/65; PULSE 71
--- NOTE | 2016-07-20 09:42 | HHI.PR ---
Subjective Remarks Patient seen and examined today. Patient has no new complaints. He is anxious to go home. Afebrile. Objective Vitals Vital Signs Date Time Temp Pulse Resp B/P Pulse Ox O2 Delivery O2 Flow Rate FiO2 07/20/16 08:06 71 90/65 07/20/16 08:03 71 100/65 07/20/16 08:00 96.8 71 20 100/80 07/19/16 20:00 98.7 90 20 96/64 94 96/70 80/68 I/O 07/19/16 07/19/16 07/19/16 07/20/16 07/20/16 07/20/16 07:00 15:00 23:00 07:00 15:00 23:00 Intake Total 480 ml 240 ml 480 ml 100 ml Output Total 1050 ml 350 ml 350 ml 950 ml Balance -570 ml -110 ml -350 ml -470 ml 100 ml Intake Oral 480 ml 240 ml 480 ml 100 ml Output Urine Total 1050 ml 350 ml 350 ml 950 ml # Voids 1 # Bowel Movements 0 0 1 0 Objective Remarks GENERAL: Well-developed, well-nourished, in no acute distress. alert and orientated to person, month, place, current events HEENT: Head is normocephalic without any lesions or masses noted. Facial features are symmetric. Eyes: Extraocular muscles are intact. Conjunctivae were clear. Oropharyngeal: Pharynx without any erythema edema. Tongue is midline without deviation. Buccal mucosa is moist without any masses or lesions NECK: Supple without any masses. Trachea midline no deviation. No JVD, no bruits are appreciated CARDIAC: Regular rhythm, regular rate. S1/S2 are heard. No murmurs gallops or rubs. LUNGS: Clear to auscultation bilaterally. No wheeze, rhonchi or rales. No use of accessory muscles on inspiration or expiration. ABDOMEN: Soft, nontender. Nondistended. Bowel sounds heard in all 4 quadrants. No organomegaly or masses. Negative rebound, negative guarding EXTREMITIES: No edema, pulses are equal bilaterally. No cyanosis or clubbing NEUROLOGY: Mood and affect appear appropriate. Cranial nerves II through XII grossly intact. Muscle strength 5/5 in upper and lower extremities bilaterally. Deep tendon reflexes are 2+ in upper and lower extremities bilaterally. Date of Insertion: Jul 01, 2016 Date of Removal: Jul 09, 2016 Date of Insertion: Jul 01, 2016 Date of Removal: Jul 06, 2016 A/P Assessment and Plan Encephalopathy: Significantly improved. 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 Patient is much more alert EEG does show moderate encephalopathy, CT scans of the brain did not show any acute abnormality Continue monitor mental status Speech therapy, cognitive evaluation within normal limits. Regular consisting diet Deconditioning Continue physical therapy on a daily basis. Patient only walked 26 feet Physical therapy has not given any discharge disposition Visual hallucinations, likely secondary to alcohol detoxing Psychiatry evaluated patient Patient started on Seroquel 50 mg at bedtime S/P Hypoxic respiratory respiratory failure, COPD exacerbation-resolved Patient intubated 07/01/16, extubated 07/03/16 Bronchodilators every 2 hours as needed, patient has not required any in 2 weeks, will discontinue at this time Patient continued on prednisone 10 mg twice daily, will discontinue that at this time Pulmonology following the patient Right lower lobe pneumonia-resolving Sputum culture with MRSA, however nasal screen for MRSA was positive also. Could be secondary to colonization Patient on Bactrim till 07/21 Pulmonary edema-resolved Discontinue Lasix, no signs of shortness of breath. Patient with low blood pressure. Cardiomyopathy/NSTEMI/A. fib RVR/PEA arrest/Systolic congestive heart failure/ Hypotension: Status post cardiopulmonary resuscitation with return of spontaneous pulse and breathing Echo 06/30: EF 2530%, aortic valve mild regurgitation, mitral valve mild to moderate regurgitation, tricuspid valve trace to mild regurgitation, systolic function severely diminished. Echo 07/02: EF 30-35% with diffuse hypokinesis and small pericardial effusion. Cardiology was following the patient and signed off on 07/09, indicated patient stable to discharge from cardiology standpoint. Follow-up out patient setting Patient continued on Eliquis for anticoagulation Unable to use beta ganesh, HERMINIO inhibitor, calcium channel ganesh, nitrate, due to low blood pressure. The patient significant cardiomyopathy systolic blood pressure 8090 is appropriate as long as map is staying above 65 Hypocalcemia/Hyponatremia/Hypokalemia/Hypomagnesemia: Resolved. Monitor and replete as needed Thrombocytopenia: Improved. No signs of bleeding. Due to alcoholism Monitor CBC GI Prophylaxis: Pepcid twice a day DVT Prophylaxis: On Eliquis Discharge Planning Case management for discharge planning. Awaiting PT clearance for discharge Evangelist Woods Jul 20, 2016 09:42
[2016-07-20] MEDS: APIXABAN 5 MG TABLET PO SCH ×2 (10:06→21:47)
[2016-07-20] MEDS: THIAMINE HCL 100 MG TAB PO SCH (10:06)
[2016-07-20] MEDS: SULFAMETHOXAZOLE-TRIMETHOPRIM DS 800-160 MG TAB PO SCH ×2 (10:06→21:47)
[2016-07-20] MEDS: MAGNESIUM OXIDE 400 MG TAB PO SCH ×2 (10:06→21:47)
[2016-07-20] MEDS: MULTIVITAMIN TAB PO SCH (10:06)
--- NOTE | 2016-07-20 17:51 | HHI.PR ---
Subjective Remarks 45 YOWM with VDRF,s/p cardiac arrest X2 Good appetite No fever or chills Occ cough, no sputum Works with PT Objective Vital Signs Vital Signs Date Time Temp Pulse Resp B/P Pulse Ox O2 Delivery O2 Flow Rate FiO2 07/20/16 08:06 71 90/65 07/20/16 08:03 71 100/65 07/20/16 08:00 96.8 71 20 100/80 07/19/16 20:00 98.7 90 20 96/64 94 96/70 80/68 I/O 07/19/16 07/19/16 07/19/16 07/20/16 07/20/16 07/20/16 07:00 15:00 23:00 07:00 15:00 23:00 Intake Total 480 ml 240 ml 480 ml 1240 ml 100 ml Output Total 1050 ml 350 ml 350 ml 950 ml Balance -570 ml -110 ml -350 ml -470 ml 1240 ml 100 ml Intake Oral 480 ml 240 ml 480 ml 1240 ml 100 ml Output Urine Total 1050 ml 350 ml 350 ml 950 ml # Voids 1 3 # Bowel Movements 0 0 1 0 1 Objective Remarks GENERAL: WBWN male, on Vent SKIN: Warm and dry. HEAD: Normocephalic. EYES: No scleral icterus. No injection or drainage. NECK: Supple, trachea midline. No JVD or lymphadenopathy. CARDIOVASCULAR: Regular rate and rhythm without murmurs, gallops, or rubs. RESPIRATORY: Breath sounds equal bilaterally. No accessory muscle use. GASTROINTESTINAL: Abdomen soft, non-tender, nondistended. MUSCULOSKELETAL: No cyanosis, or edema. BACK: Nontender without obvious deformity. No CVA tenderness. A/P Assessment and Plan VDRF, s/p extubation 07/03 S/P cardiac arrest CHF AF COPD PLAN: Stable on RA Encourage PO intake PO Bactrim Stable from Pulm standpoint manager animal arranging placement Tomer Whitlock MD Jul 20, 2016 17:51
[2016-07-20 20:00] VITALS: BP_SYST 106; BP_SYST 76; BP_SYST 88; BP_DIAS 61; BP_DIAS 75; BP_DIAS 83; PULSE 100; PULSE 108; PULSE 90; RESP 20; TEMP 98.4; O2SAT 99
[2016-07-20] MEDS: QUEtiapine FUMARATE 25 MG TAB PO SCH (21:47)
[2016-07-21 08:00] VITALS: BP_SYST 93; BP_SYST 96; BP_DIAS 73; BP_DIAS 76; PULSE 83; PULSE 95; RESP 18; TEMP 96.8; O2SAT 98
[2016-07-21 08:06] VITALS: BP 88/50; PULSE 95
[2016-07-21] MEDS: MULTIVITAMIN TAB PO SCH (08:23)
[2016-07-21] MEDS: THIAMINE HCL 100 MG TAB PO SCH (08:24)
[2016-07-21] MEDS: SULFAMETHOXAZOLE-TRIMETHOPRIM DS 800-160 MG TAB PO SCH (08:24)
[2016-07-21] MEDS: MAGNESIUM OXIDE 400 MG TAB PO SCH ×2 (08:24→20:50)
[2016-07-21] MEDS: APIXABAN 5 MG TABLET PO SCH ×2 (08:24→20:50)
--- NOTE | 2016-07-21 12:43 | HHI.PR ---
Subjective Remarks Follow-up for A. fib, CHF, pneumonia, s/p cardiac arrest. Patient states he is walking better and that he slept well. Objective Vitals Vital Signs Date Time Temp Pulse Resp B/P Pulse Ox O2 Delivery O2 Flow Rate FiO2 07/21/16 08:06 95 88/50 07/21/16 08:00 96.8 83 18 96/76 98 07/21/16 08:00 95 93/73 07/20/16 20:00 90 76/61 07/20/16 20:00 100 88/75 07/20/16 20:00 98.4 108 20 106/83 99 I/O 07/20/16 07/20/16 07/20/16 07/21/16 07/21/16 07/21/16 07:00 15:00 23:00 07:00 15:00 23:00 Intake Total 480 ml 1240 ml 820 ml 120 ml 100 ml Output Total 950 ml 925 ml 250 ml Balance -470 ml 1240 ml -105 ml -130 ml 100 ml Intake Oral 480 ml 1240 ml 820 ml 120 ml 100 ml Output Urine Total 950 ml 925 ml 250 ml # Voids 3 5 1 # Bowel Movements 0 1 0 0 Objective Remarks GENERAL: Pleasant well-developed patient in no apparent distress CARDIOVASCULAR: Regular rate and rhythm. RESPIRATORY: No accessory muscle use. Clear to auscultation. Breath sounds equal bilaterally. GASTROINTESTINAL: Abdomen soft, non-tender, nondistended. NEUROLOGICAL: Awake and alert. Normal speech. PSYCHIATRIC: Appropriate mood and affect; insight and judgment normal. Urinary Catheter: No Date of Insertion: Jul 01, 2016 Date of Removal: Jul 09, 2016 Vascular Central Line Catheter: No Date of Insertion: Jul 01, 2016 Date of Removal: Jul 06, 2016 A/P Problem List: (1) Atrial fibrillation with RVR ICD Code: I48.91 Status: Acute (2) PNA (pneumonia) ICD Code: J18.9 Status: Acute (3) COPD exacerbation ICD Code: J44.1 Status: Acute (4) Elevated troponin ICD Code: R74.8 Status: Acute Assessment and Plan Encephalopathy: Improved. 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 Patient is much more alert EEG does show moderate encephalopathy. CT scans of the brain did not show any acute abnormality. Continue to monitor mental status Speech therapy, cognitive evaluation within normal limits. Regular consistency diet. Deconditioning Continue physical therapy on a daily basis. Visual hallucinations, likely secondary to alcohol detoxing Psychiatry evaluated patient Patient started on Seroquel 50 mg at bedtime S/P Hypoxic respiratory respiratory failure, COPD exacerbation-resolved Patient intubated 07/01/16, extubated 07/03/16 Bronchodilators discontinued as patient had not been using Prednisone discontinued Pulmonology following the patient Right lower lobe pneumonia-resolving Sputum culture with MRSA, however nasal screen for MRSA was positive also. Could be secondary to colonization. Patient on Bactrim till 07/21 Pulmonary edema-resolved Lasix discontinued; no signs of shortness of breath. Patient with low blood pressure. Cardiomyopathy/NSTEMI/A. fib RVR/PEA arrest/Systolic congestive heart failure/ Hypotension: Status post cardiopulmonary resuscitation with return of spontaneous pulse and breathing Echo 06/30: EF 2530%, aortic valve mild regurgitation, mitral valve mild to moderate regurgitation, tricuspid valve trace to mild regurgitation, systolic function severely diminished. Echo 07/02: EF 30-35% with diffuse hypokinesis and small pericardial effusion. Cardiology was following the patient and signed off on 07/09, indicated patient stable to discharge from cardiology standpoint. Follow-up out patient setting Patient continued on Eliquis for anticoagulation Unable to use beta ganesh, HERMINIO inhibitor, calcium channel ganesh, nitrate, due to low blood pressure. The patient significant cardiomyopathy systolic blood pressure 8090 is appropriate as long as MAP > 65. Hypocalcemia/Hyponatremia/Hypokalemia/Hypomagnesemia: Resolved. Monitor and replete as needed Thrombocytopenia: Improved. No signs of bleeding. Due to alcoholism Monitor CBC GI Prophylaxis: Pepcid twice a day DVT Prophylaxis: On Eliquis Discharge Planning CM following. Mother has been contacted to assist with filing for medicaid. Patient is registered at the homeless [facility]. Change is following for benefits. Per CM, patient's mother is willing to answer questions but not assist with finances. 07/17: SSI pending. Needs walker or cane upon discharge. Problem Qualifiers (1) PNA (pneumonia): Qualified Code: J18.1 - Pneumonia of right lower lobe due to infectious organism Erika Mora Jul 21, 2016 12:43 Erika Mora Jul 21, 2016 12:43
--- NOTE | 2016-07-21 18:07 | HHI.PR ---
Subjective Remarks 45 YOWM with VDRF,s/p cardiac arrest X2 Good appetite No fever or chills Occ cough, no sputum Works with PT no new complaint Objective Vital Signs Vital Signs Date Time Temp Pulse Resp B/P Pulse Ox O2 Delivery O2 Flow Rate FiO2 07/21/16 08:06 95 88/50 07/21/16 08:00 96.8 83 18 96/76 98 07/21/16 08:00 95 93/73 07/20/16 20:00 90 76/61 07/20/16 20:00 100 88/75 07/20/16 20:00 98.4 108 20 106/83 99 I/O 07/20/16 07/20/16 07/20/16 07/21/16 07/21/16 07/21/16 07:00 15:00 23:00 07:00 15:00 23:00 Intake Total 480 ml 1240 ml 820 ml 120 ml 1000 ml 580 ml Output Total 950 ml 925 ml 250 ml Balance -470 ml 1240 ml -105 ml -130 ml 1000 ml 580 ml Intake Oral 480 ml 1240 ml 820 ml 120 ml 1000 ml 580 ml Output Urine Total 950 ml 925 ml 250 ml # Voids 3 5 1 2 # Bowel Movements 0 1 0 0 1 Objective Remarks GENERAL: WBWN male, on Vent SKIN: Warm and dry. HEAD: Normocephalic. EYES: No scleral icterus. No injection or drainage. NECK: Supple, trachea midline. No JVD or lymphadenopathy. CARDIOVASCULAR: Regular rate and rhythm without murmurs, gallops, or rubs. RESPIRATORY: Breath sounds equal bilaterally. No accessory muscle use. GASTROINTESTINAL: Abdomen soft, non-tender, nondistended. MUSCULOSKELETAL: No cyanosis, or edema. BACK: Nontender without obvious deformity. No CVA tenderness. A/P Assessment and Plan VDRF, s/p extubation 07/03 S/P cardiac arrest CHF AF COPD PLAN: Stable on RA Encourage PO intake PO Bactrim Stable from Pulm standpoint. Tomer Whitlock MD Jul 21, 2016 18:07
[2016-07-21 20:00] VITALS: BP 105/86; PULSE 97; RESP 19; TEMP 98.1; O2SAT 100
[2016-07-21] MEDS: QUEtiapine FUMARATE 25 MG TAB PO SCH (20:50)
[2016-07-21] MEDS: ACETAMINOPHEN 325 MG TAB PO PRN (20:56)
[2016-07-22 08:00] VITALS: BP_SYST 89; BP_SYST 93; BP_SYST 98; BP_DIAS 65; BP_DIAS 69; BP_DIAS 75; PULSE 56; RESP 20; TEMP 96.8; O2SAT 95
[2016-07-22] MEDS: THIAMINE HCL 100 MG TAB PO SCH (08:58)
[2016-07-22] MEDS: MULTIVITAMIN TAB PO SCH (08:59)
[2016-07-22] MEDS: MAGNESIUM OXIDE 400 MG TAB PO SCH ×2 (08:59→20:48)
[2016-07-22] MEDS: APIXABAN 5 MG TABLET PO SCH ×2 (08:59→20:49)
--- NOTE | 2016-07-22 11:38 | HHI.PR ---
Subjective Remarks Follow-up for A. fib, CHF, pneumonia, s/p cardiac arrest. The patient states he has a "tightness" in the center of his chest stating he feels like something is sitting there, but denies it being pain. He states it started this morning. He states he had pain in the back last night. He states he is coughing a bit more than normal, only sometimes productive. He states tightness may have started with a coughing fit this morning but is unsure. He then tells me he may have had this feeling on and off for years from smoking but is also unsure of this. He states he has some tightness before he takes a deep breath or coughs but denies actual pleuritic pain. Denies sob, diaphoresis, or n/t associated with chest discomfort. Occasionally gets "shocks" over L chest but this seems to be a chronic issue. Objective Vitals Vital Signs Date Time Temp Pulse Resp B/P Pulse Ox O2 Delivery O2 Flow Rate FiO2 07/21/16 21:56 16 07/21/16 20:00 98.1 97 19 105/86 100 I/O 07/21/16 07/21/16 07/21/16 07/22/16 07/22/16 07/22/16 07:00 15:00 23:00 07:00 15:00 23:00 Intake Total 120 ml 1000 ml 1060 ml 480 ml Output Total 250 ml 1500 ml Balance -130 ml 1000 ml -440 ml 480 ml Intake Oral 120 ml 1000 ml 1060 ml 480 ml Output Urine Total 250 ml 1500 ml # Voids 1 2 2 # Bowel Movements 0 1 Objective Remarks GENERAL: Pleasant well-developed patient in no apparent distress. SKIN: Warm and dry. CHEST: No reproducible chest wall tenderness. CARDIOVASCULAR: Normal rate with irregularly irregular rhythm. RESPIRATORY: No accessory muscle use. Clear to auscultation. Breath sounds equal bilaterally. GASTROINTESTINAL: Abdomen soft, non-tender, nondistended. MUSCULOSKELETAL: No lower extremity edema bilaterally. NEUROLOGICAL: Awake and alert. Normal speech. PSYCHIATRIC: Appropriate mood and affect; insight and judgment normal. Urinary Catheter: No Date of Insertion: Jul 01, 2016 Date of Removal: Jul 09, 2016 Vascular Central Line Catheter: No Date of Insertion: Jul 01, 2016 Date of Removal: Jul 06, 2016 A/P Problem List: (1) Atrial fibrillation with RVR ICD Code: I48.91 Status: Acute (2) PNA (pneumonia) ICD Code: J18.9 Status: Acute (3) COPD exacerbation ICD Code: J44.1 Status: Acute (4) Elevated troponin ICD Code: R74.8 Status: Acute Assessment and Plan Cardiomyopathy/NSTEMI/A. fib RVR/PEA arrest/Systolic congestive heart failure/ Hypotension: Status post cardiopulmonary resuscitation with return of spontaneous pulse and breathing Echo 06/30: EF 2530%, aortic valve mild regurgitation, mitral valve mild to moderate regurgitation, tricuspid valve trace to mild regurgitation, systolic function severely diminished. Echo 07/02: EF 30-35% with diffuse hypokinesis and small pericardial effusion. Cardiology was following the patient and signed off on 07/09, indicated patient stable to discharge from cardiology standpoint. Follow-up out patient setting Patient continued on Eliquis for anticoagulation Unable to use beta ganesh, HERMINIO inhibitor, calcium channel ganesh, nitrate, due to low blood pressure. The patient has significant cardiomyopathy; systolic blood pressure 8090 is appropriate as long as MAP > 65. Patient is always hypotensive but orthostasis is not noted this morning. 07/22: Patient has chest tightness starting this morning, likely related to cough but no reproducible tenderness on exam and lung exam is benign. EKG today personally interpreted with Joseline RVR 114. LAD. No obvious ischemia. Troponin < 0.02. CK 28. Telemetry ordered to monitor HR; cannot give aforementioned medications due to hypotension. RN later informed me HR fluctuates between 110- 130. Discussed with Dr. Newton. Will order Digoxin 0.25 mg po now and start 0.125 mg daily tomorrow. Encephalopathy: Improved. 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 Patient is much more alert EEG does show moderate encephalopathy. CT scans of the brain did not show any acute abnormality. Continue to monitor mental status Speech therapy, cognitive evaluation within normal limits. Regular consistency diet. Deconditioning Continue physical therapy on a daily basis. Visual hallucinations, likely secondary to alcohol detoxing Psychiatry evaluated patient Continue Seroquel 50 mg at bedtime S/P Hypoxic respiratory respiratory failure, COPD exacerbation-resolved Patient intubated 07/01/16, extubated 07/03/16 Bronchodilators discontinued as patient had not been using Prednisone discontinued Pulmonology following the patient Right lower lobe pneumonia-resolving Sputum culture with MRSA, however nasal screen for MRSA was positive also. Could be secondary to colonization. Bactrim till 07/21 07/22: Patient states cough is somewhat worse but lung exam is benign. Pulmonary edema-resolved Lasix discontinued; no signs of shortness of breath. Patient with low blood pressure. Hypocalcemia/Hyponatremia/Hypokalemia/Hypomagnesemia: Resolved. Monitor and replete as needed Thrombocytopenia: Improved. No signs of bleeding. Due to alcoholism Monitor CBC GI Prophylaxis: Pepcid twice a day DVT Prophylaxis: On Eliquis Discharge Planning CM following. Mother has been contacted to assist with filing for medicaid. Patient is registered at the homeless coalition. Change is following for benefits. Per CM, patient's mother is willing to answer questions but not assist with finances. 07/17: SSI pending. Needs walker or cane upon discharge. Problem Qualifiers (1) PNA (pneumonia): Qualified Code: J18.1 - Pneumonia of right lower lobe due to infectious organism Erika Mora Jul 22, 2016 11:38
[2016-07-22 12:04] LABS: CREATINE KINASE 28 U/L (39-308)
[2016-07-22] MEDS ORDERED: DIGOXIN 0.25 MG TAB PO ONE (13:45)
[2016-07-22 20:00] VITALS: BP 88/71; PULSE 79; RESP 19; TEMP 96.2; O2SAT 97
--- NOTE | 2016-07-22 20:43 | HHI.PR ---
Subjective Remarks 45 YOWM with VDRF,s/p cardiac arrest X2 Good appetite No fever or chills Occ cough, no sputum Works with PT Objective Vital Signs Vital Signs Date Time Temp Pulse Resp B/P Pulse Ox O2 Delivery O2 Flow Rate FiO2 07/22/16 08:00 96.8 56 20 93/75 95 07/22/16 08:00 89/69 07/22/16 08:00 98/65 07/21/16 21:56 16 I/O 07/21/16 07/21/16 07/21/16 07/22/16 07/22/16 07/22/16 07:00 15:00 23:00 07:00 15:00 23:00 Intake Total 120 ml 1000 ml 1060 ml 480 ml 650 ml Output Total 250 ml 1500 ml Balance -130 ml 1000 ml -440 ml 480 ml 650 ml Intake Oral 120 ml 1000 ml 1060 ml 480 ml 650 ml Output Urine Total 250 ml 1500 ml # Voids 1 2 2 4 # Bowel Movements 0 1 1 Objective Remarks GENERAL: WBWN male, on Vent SKIN: Warm and dry. HEAD: Normocephalic. EYES: No scleral icterus. No injection or drainage. NECK: Supple, trachea midline. No JVD or lymphadenopathy. CARDIOVASCULAR: Regular rate and rhythm without murmurs, gallops, or rubs. RESPIRATORY: Breath sounds equal bilaterally. No accessory muscle use. GASTROINTESTINAL: Abdomen soft, non-tender, nondistended. MUSCULOSKELETAL: No cyanosis, or edema. BACK: Nontender without obvious deformity. No CVA tenderness. A/P Assessment and Plan VDRF, s/p extubation 07/03 S/P cardiac arrest CHF AF COPD PLAN: Stable on RA Encourage PO intake PO Bactrim Stable from Pulm standpoint. Tomer Whitlock MD Jul 22, 2016 20:43
[2016-07-22] MEDS: QUEtiapine FUMARATE 25 MG TAB PO SCH (20:49)
[2016-07-23 08:00] VITALS: BP_SYST 101; BP_SYST 95; BP_SYST 98; BP_DIAS 70; BP_DIAS 71; BP_DIAS 74; PULSE 107; PULSE 98; RESP 18; TEMP 96.7; O2SAT 91
--- NOTE | 2016-07-23 09:38 | HHI.PR ---
Subjective Remarks Follow-up for A. rashida, CHF, pneumonia, s/p cardiac arrest. Patient had tightness in his chest yesterday which is now resolved. He denies any shortness of breath. Still admits to getting dizzy upon standing. Patient's ALeif field was also in RVR yesterday and he was started on digoxin. He states the Digoxin "knocked" him out, but he was glad he was able to sleep. His rate is better controlled this morning. Objective Vitals Vital Signs Date Time Temp Pulse Resp B/P Pulse Ox O2 Delivery O2 Flow Rate FiO2 07/23/16 08:00 96.7 98 18 95/70 91 98/71 101/74 07/22/16 20:00 96.2 79 19 88/71 97 I/O 07/22/16 07/22/16 07/22/16 07/23/16 07/23/16 07/23/16 07:00 15:00 23:00 07:00 15:00 23:00 Intake Total 480 ml 650 ml 240 ml 480 ml Output Total 300 ml 650 ml Balance 480 ml 650 ml -60 ml -170 ml Intake Oral 480 ml 650 ml 240 ml 480 ml Output Urine Total 300 ml 650 ml # Voids 2 4 # Bowel Movements 1 Objective Remarks GENERAL: Pleasant well-developed patient in no apparent distress. SKIN: Warm and dry. CARDIOVASCULAR: Irregularly irregular rhythm. HR mostly in upper 90's on tele. RESPIRATORY: No accessory muscle use. Clear to auscultation. Breath sounds equal bilaterally. GASTROINTESTINAL: Abdomen soft, non-tender, nondistended. NEUROLOGICAL: Awake and alert. Normal speech. PSYCHIATRIC: Appropriate mood and affect. Urinary Catheter: No Date of Insertion: Jul 01, 2016 Date of Removal: Jul 09, 2016 Vascular Central Line Catheter: No Date of Insertion: Jul 01, 2016 Date of Removal: Jul 06, 2016 A/P Problem List: (1) Atrial fibrillation with RVR ICD Code: I48.91 Status: Acute (2) PNA (pneumonia) ICD Code: J18.9 Status: Acute (3) COPD exacerbation ICD Code: J44.1 Status: Acute (4) Elevated troponin ICD Code: R74.8 Status: Acute Assessment and Plan Cardiomyopathy/NSTEMI/A. fib RVR/PEA arrest/Systolic congestive heart failure/ Hypotension: Status post cardiopulmonary resuscitation with return of spontaneous pulse and breathing Echo 06/30: EF 2530%, aortic valve mild regurgitation, mitral valve mild to moderate regurgitation, tricuspid valve trace to mild regurgitation, systolic function severely diminished. Echo 07/02: EF 30-35% with diffuse hypokinesis and small pericardial effusion. Cardiology was following the patient and signed off on 07/09, indicated patient stable to discharge from cardiology standpoint. Follow-up out patient setting Patient continued on Eliquis for anticoagulation Unable to use beta ganesh, HERMINIO inhibitor, calcium channel ganesh, nitrate, due to low blood pressure. The patient has significant cardiomyopathy; systolic blood pressure 8090 is appropriate as long as MAP > 65. Patient is always hypotensive but orthostasis is not noted this morning. 07/22: Patient has chest tightness starting this morning, likely related to cough but no reproducible tenderness on exam and lung exam is benign. EKG with A.Fib RVR 114. LAD. No obvious ischemia. Troponin <0.02. CK 28. RN later informed me HR fluctuates between 110-130. Discussed with Dr. Newton. Will order Digoxin 0.25 mg po now and start 0.125 mg daily tomorrow as other medications above are contraindicated. 07/23: Chest tightness resolved. Telemetry reviewed; patient's heart rate did go up into the 130s-150's at times, but HR is currently controlled within the 90s's this morning. Will continue to monitor on telemetry today. Continue with Digoxin. Patient still admits to feeling dizzy upon standing and although he is chronically hypotensive he is not orthostatic this morning. Encephalopathy: Improved. 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 Patient is much more alert EEG does show moderate encephalopathy. CT scans of the brain did not show any acute abnormality. Continue to monitor mental status Speech therapy, cognitive evaluation within normal limits. Regular consistency diet. Deconditioning Continue physical therapy on a daily basis. Visual hallucinations, likely secondary to alcohol detoxing Psychiatry evaluated patient Continue Seroquel 50 mg at bedtime S/P Hypoxic respiratory respiratory failure, COPD exacerbation-resolved Patient intubated 07/01/16, extubated 07/03/16 Bronchodilators discontinued as patient had not been using Prednisone discontinued Pulmonology following the patient Right lower lobe pneumonia-resolving Sputum culture with MRSA, however nasal screen for MRSA was positive also. Could be secondary to colonization. Bactrim till 07/21 Pulmonary edema-resolved Lasix discontinued; no signs of shortness of breath. Patient with low blood pressure. Hypocalcemia/Hyponatremia/Hypokalemia/Hypomagnesemia: Resolved. Monitor and replete as needed Thrombocytopenia: Improved. No signs of bleeding. Due to alcoholism Monitor CBC GI Prophylaxis: Pepcid twice a day DVT Prophylaxis: On Eliquis Discharge Planning CM following. Mother has been contacted to assist with filing for medicaid. Patient is registered at the homeless [facility]. Change is following for benefits. Per CM, patient's mother is willing to answer questions but not assist with finances. 07/17: SSI pending. Needs walker or cane upon discharge. Problem Qualifiers (1) PNA (pneumonia): Qualified Code: J18.1 - Pneumonia of right lower lobe due to infectious organism Erika Mora Jul 23, 2016 09:38
[2016-07-23] MEDS: MAGNESIUM OXIDE 400 MG TAB PO SCH ×2 (10:14→21:38)
[2016-07-23] MEDS: APIXABAN 5 MG TABLET PO SCH ×2 (10:14→21:38)
[2016-07-23] MEDS: DIGOXIN 0.125 MG TAB PO SCH (10:14)
[2016-07-23] MEDS: THIAMINE HCL 100 MG TAB PO SCH (10:14)
[2016-07-23] MEDS: MULTIVITAMIN TAB PO SCH (10:14)
--- NOTE | 2016-07-23 13:12 | EKG ---
Date Performed: 07/22/2016 Time Performed: 15:24:38 PTAGE: 45 years EKG: Atrial fibrillation with rapid ventricular response with multifocal PVCs or aberrant ventri cular conduction. Possible left anterior fascicular block Abnormal ECG PREVIOUS TRACING : 07/22/2016 11.28 \ DOCTOR: Gurmeet Moeller Interpretating Date/Time 07/23/2016 13:10:31
--- NOTE | 2016-07-23 13:34 | EKG ---
Date Performed: 07/22/2016 Time Performed: 11:14:43 PTAGE: 45 years EKG: Atrial fibrillation with rapid ventricular response Possible left anterior fascicular block Compared to prior tracing no significant change PREVIOUS TRACING : 07/04/2016 00.37 DOCTOR: Silverio Park Interpretating Date/Time 07/24/2016 13:40:51
--- NOTE | 2016-07-23 19:24 | HHI.PR ---
Subjective Remarks 45 YOWM with VDRF,s/p cardiac arrest X2 Good appetite No fever or chills Occ cough, no sputum Had Af with RVR Now HR controlled Objective Vital Signs Vital Signs Date Time Temp Pulse Resp B/P Pulse Ox O2 Delivery O2 Flow Rate FiO2 07/23/16 08:00 107 07/23/16 08:00 96.7 98 18 95/70 91 98/71 101/74 07/22/16 20:00 96.2 79 19 88/71 97 I/O 07/22/16 07/22/16 07/22/16 07/23/16 07/23/16 07/23/16 07:00 15:00 23:00 07:00 15:00 23:00 Intake Total 480 ml 650 ml 240 ml 480 ml 720 ml 0 ml Output Total 300 ml 650 ml Balance 480 ml 650 ml -60 ml -170 ml 720 ml 0 ml Intake Oral 480 ml 650 ml 240 ml 480 ml 720 ml IV Total 0 ml Output Urine Total 300 ml 650 ml # Voids 2 4 1 # Bowel Movements 1 1 Objective Remarks GENERAL: WBWN male, on Vent SKIN: Warm and dry. HEAD: Normocephalic. EYES: No scleral icterus. No injection or drainage. NECK: Supple, trachea midline. No JVD or lymphadenopathy. CARDIOVASCULAR: Regular rate and rhythm without murmurs, gallops, or rubs. RESPIRATORY: Breath sounds equal bilaterally. No accessory muscle use. GASTROINTESTINAL: Abdomen soft, non-tender, nondistended. MUSCULOSKELETAL: No cyanosis, or edema. BACK: Nontender without obvious deformity. No CVA tenderness. A/P Assessment and Plan VDRF, s/p extubation 07/03 S/P cardiac arrest CHF AF COPD PLAN: Stable on RA Encourage PO intake PO Bactrim Stable from Pulm standpoint. Tomer Whitlock MD Jul 23, 2016 19:24
[2016-07-23 20:00] VITALS: BP_SYST 103; BP_SYST 116; BP_SYST 98; BP_DIAS 70; BP_DIAS 78; BP_DIAS 90; PULSE 102; RESP 16; TEMP 98.5; O2SAT 99
[2016-07-23] MEDS: QUEtiapine FUMARATE 25 MG TAB PO SCH (21:38)
[2016-07-24] VITALS: BP 103/72; PULSE 89; RESP 16; TEMP 97.1; O2SAT 99
[2016-07-24 04:00] VITALS: BP 91/71; PULSE 74; RESP 16; TEMP 97.6; O2SAT 100
[2016-07-24 08:00] VITALS: BP_SYST 94; BP_SYST 95; BP_DIAS 54; BP_DIAS 69; BP_DIAS 80; PULSE 106; RESP 19; TEMP 95.6; O2SAT 97
[2016-07-24] MEDS: MAGNESIUM OXIDE 400 MG TAB PO SCH ×2 (08:10→20:50)
[2016-07-24] MEDS: DIGOXIN 0.125 MG TAB PO SCH (08:10)
[2016-07-24] MEDS: THIAMINE HCL 100 MG TAB PO SCH (08:10)
[2016-07-24] MEDS: MULTIVITAMIN TAB PO SCH (08:10)
[2016-07-24] MEDS: APIXABAN 5 MG TABLET PO SCH ×2 (08:10→20:50)
--- NOTE | 2016-07-24 10:45 | HHI.PR ---
Subjective Remarks Follow-up for A. fib, CHF, pneumonia, s/p cardiac arrest. Patient denies any chest pain, shortness of breath, or palpitations. Nurse states patient's heart rate was in the 140s to 150s yesterday which is documented on telemetry. Initial heart rate noted on telemetry was 128 this morning but soon improved staying in the 90s to low 100s. Objective Vitals Vital Signs Date Time Temp Pulse Resp B/P Pulse Ox O2 Delivery O2 Flow Rate FiO2 07/24/16 08:00 95.6 106 19 94/69 97 95/54 94/80 07/24/16 04:00 97.6 74 16 91/71 100 07/24/16 00:00 97.1 89 16 103/72 99 07/23/16 20:00 98.5 102 16 116/90 99 103/78 98/70 I/O 07/23/16 07/23/16 07/23/16 07/24/16 07/24/16 07/24/16 07:00 15:00 23:00 07:00 15:00 23:00 Intake Total 480 ml 720 ml 480 ml 480 ml Output Total 650 ml 1200 ml Balance -170 ml 720 ml 480 ml -720 ml Intake Oral 480 ml 720 ml 480 ml 480 ml IV Total 0 ml Output Urine Total 650 ml 1200 ml # Voids 1 2 # Bowel Movements 1 1 1 Objective Remarks GENERAL: Pleasant well-developed patient in no apparent distress. SKIN: Warm and dry. CARDIOVASCULAR: HR normal. Irregularly irregular rhythm. RESPIRATORY: No accessory muscle use. Clear to auscultation. Breath sounds equal bilaterally. GASTROINTESTINAL: Abdomen soft, non-tender, nondistended. MUSCULOSKELETAL: No lower extremity edema bilaterally. NEUROLOGICAL: Awake and alert. Normal speech. PSYCHIATRIC: Appropriate mood and affect. Urinary Catheter: No Date of Insertion: Jul 01, 2016 Date of Removal: Jul 09, 2016 Vascular Central Line Catheter: No Date of Insertion: Jul 01, 2016 Date of Removal: Jul 06, 2016 A/P Problem List: (1) Atrial fibrillation with RVR ICD Code: I48.91 Status: Acute (2) PNA (pneumonia) ICD Code: J18.9 Status: Acute (3) COPD exacerbation ICD Code: J44.1 Status: Acute (4) Elevated troponin ICD Code: R74.8 Status: Acute Assessment and Plan Cardiomyopathy/NSTEMI/A. fib RVR/PEA arrest/Systolic congestive heart failure/ Hypotension: Status post cardiopulmonary resuscitation with return of spontaneous pulse and breathing Echo 06/30: EF 2530%, aortic valve mild regurgitation, mitral valve mild to moderate regurgitation, tricuspid valve trace to mild regurgitation, systolic function severely diminished. Echo 07/02: EF 30-35% with diffuse hypokinesis and small pericardial effusion. Cardiology was following the patient and signed off on 07/09, indicated patient stable to discharge from cardiology standpoint. Follow-up out patient setting Patient continued on Eliquis for anticoagulation Unable to use beta ganesh, HERMINIO inhibitor, calcium channel ganesh, nitrate, due to low blood pressure. The patient has significant cardiomyopathy; systolic blood pressure 8090 is appropriate as long as MAP > 65. Patient is always hypotensive but orthostasis is not noted this morning. 07/22: Patient has chest tightness starting this morning, likely related to cough but no reproducible tenderness on exam and lung exam is benign. EKG with A.Fib RVR 114. LAD. No obvious ischemia. Troponin <0.02. CK 28. RN later informed me HR fluctuates between 110-130. Discussed with Dr. Newton. Will order Digoxin 0.25 mg po now and start 0.125 mg daily tomorrow as other medications above are contraindicated. 07/24: Chest tightness resolved. Telemetry reviewed; patient's heart rate did go up into the 140s-150's at times yesterday, but HR is mostly within the 90s- low 100s this morning. Continue with Digoxin. Will continue to monitor on telemetry today. If HR remains stable will remove from tele. No orthostasis evident although patient remains hypotensive which is chronic. Encephalopathy: Improved. 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 Patient is much more alert EEG does show moderate encephalopathy. CT scans of the brain did not show any acute abnormality. Continue to monitor mental status Speech therapy, cognitive evaluation within normal limits. Regular consistency diet. Deconditioning Continue physical therapy on a daily basis. Visual hallucinations, likely secondary to alcohol detoxing Psychiatry evaluated patient Continue Seroquel 50 mg at bedtime S/P Hypoxic respiratory respiratory failure, COPD exacerbation-resolved Patient intubated 07/01/16, extubated 07/03/16 Bronchodilators discontinued as patient had not been using Prednisone discontinued Pulmonology following the patient Right lower lobe pneumonia-resolving Sputum culture with MRSA, however nasal screen for MRSA was positive also. Could be secondary to colonization. Bactrim till 07/21 Pulmonology following Pulmonary edema-resolved Lasix discontinued; no signs of shortness of breath. Patient with low blood pressure. Hypocalcemia/Hyponatremia/Hypokalemia/Hypomagnesemia: Resolved. Monitor and replete as needed Thrombocytopenia: Improved. No signs of bleeding. Due to alcoholism Monitor CBC GI Prophylaxis: Pepcid twice a day DVT Prophylaxis: On Eliquis Discharge Planning CM following. Mother has been contacted to assist with filing for medicaid. Patient is registered at the homeless [facility]. Change is following for benefits. Per CM, patient's mother is willing to answer questions but not assist with finances. 07/17: SSI pending. Needs walker or cane upon discharge. Problem Qualifiers (1) PNA (pneumonia): Qualified Code: J18.1 - Pneumonia of right lower lobe due to infectious organism Erika Mora Jul 24, 2016 10:45
--- NOTE | 2016-07-24 19:13 | HHI.PR ---
Subjective Remarks 45 YOWM with VDRF,s/p cardiac arrest X2 Good appetite No fever or chills Occ cough, no sputum Denies sob, palptation or CP Objective Vital Signs Vital Signs Date Time Temp Pulse Resp B/P Pulse Ox O2 Delivery O2 Flow Rate FiO2 07/24/16 08:00 95.6 106 19 94/69 97 95/54 94/80 07/24/16 04:00 97.6 74 16 91/71 100 07/24/16 00:00 97.1 89 16 103/72 99 07/23/16 20:00 98.5 102 16 116/90 99 103/78 98/70 I/O 07/23/16 07/23/16 07/23/16 07/24/16 07/24/16 07/24/16 07:00 15:00 23:00 07:00 15:00 23:00 Intake Total 480 ml 720 ml 480 ml 480 ml 360 ml Output Total 650 ml 1200 ml Balance -170 ml 720 ml 480 ml -720 ml 360 ml Intake Oral 480 ml 720 ml 480 ml 480 ml 360 ml IV Total 0 ml Output Urine Total 650 ml 1200 ml # Voids 1 2 2 # Bowel Movements 1 1 1 1 Objective Remarks GENERAL: WBWN male, on Vent SKIN: Warm and dry. HEAD: Normocephalic. EYES: No scleral icterus. No injection or drainage. NECK: Supple, trachea midline. No JVD or lymphadenopathy. CARDIOVASCULAR: Regular rate and rhythm without murmurs, gallops, or rubs. RESPIRATORY: Breath sounds equal bilaterally. No accessory muscle use. GASTROINTESTINAL: Abdomen soft, non-tender, nondistended. MUSCULOSKELETAL: No cyanosis, or edema. BACK: Nontender without obvious deformity. No CVA tenderness. A/P Assessment and Plan VDRF, s/p extubation 07/03 S/P cardiac arrest CHF AF COPD PLAN: Stable on RA Encourage PO intake PO Bactrim Stable from Pulm standpoint. Digoxin for rate controll. Tomer Whitlock MD Jul 24, 2016 19:13
[2016-07-24 20:00] VITALS: BP_SYST 106; BP_SYST 112; BP_SYST 116; BP_DIAS 70; BP_DIAS 80; BP_DIAS 87; PULSE 100; PULSE 107; RESP 16; TEMP 97.4; O2SAT 99
[2016-07-24] MEDS: QUEtiapine FUMARATE 25 MG TAB PO SCH (20:50)
[2016-07-25] VITALS: BP 96/71; PULSE 102; RESP 16; TEMP 97.4; O2SAT 99
[2016-07-25 04:00] VITALS: BP 95/80; PULSE 82; RESP 16; TEMP 96.7; O2SAT 99
[2016-07-25 08:00] VITALS: BP_SYST 82; BP_SYST 88; BP_SYST 95; BP_DIAS 62; BP_DIAS 66; BP_DIAS 75; PULSE 105; PULSE 75; RESP 18; TEMP 97.6; O2SAT 99
[2016-07-25] MEDS: APIXABAN 5 MG TABLET PO SCH ×2 (08:39→21:46)
[2016-07-25] MEDS: MULTIVITAMIN TAB PO SCH (08:39)
[2016-07-25] MEDS: MAGNESIUM OXIDE 400 MG TAB PO SCH ×2 (08:39→21:46)
[2016-07-25] MEDS: THIAMINE HCL 100 MG TAB PO SCH (08:39)
[2016-07-25] MEDS: DIGOXIN 0.125 MG TAB PO SCH (08:40)
--- NOTE | 2016-07-25 12:22 | HHI.PR ---
Subjective Remarks Follow-up for A. fib, CHF, pneumonia, s/p cardiac arrest. Patient denies any chest pain, shortness of breath, or palpitations. Patient only has dizziness when he stands up which is chronic. No worsening dizziness. Objective Vitals Vital Signs Date Time Temp Pulse Resp B/P Pulse Ox O2 Delivery O2 Flow Rate FiO2 07/25/16 08:00 97.6 75 18 88/62 99 95/75 82/66 07/25/16 04:00 96.7 82 16 95/80 99 07/25/16 00:00 97.4 102 16 96/71 99 07/24/16 20:00 97.4 107 16 116/80 99 112/87 106/70 07/24/16 20:00 100 I/O 07/24/16 07/24/16 07/24/16 07/25/16 07/25/16 07/25/16 07:00 15:00 23:00 07:00 15:00 23:00 Intake Total 480 ml 360 ml 480 ml 480 ml 100 ml Output Total 1200 ml 400 ml 1200 ml Balance -720 ml 360 ml 80 ml -720 ml 100 ml Intake Oral 480 ml 360 ml 480 ml 480 ml 100 ml Output Urine Total 1200 ml 400 ml 1200 ml # Voids 2 2 # Bowel Movements 1 2 0 Objective Remarks GENERAL: Pleasant well-developed patient in no apparent distress. SKIN: Warm and dry. CARDIOVASCULAR: HR normal at 88. Irregularly irregular rhythm. RESPIRATORY: No accessory muscle use. Clear to auscultation. Breath sounds equal bilaterally. GASTROINTESTINAL: Abdomen soft, non-tender, nondistended. NEUROLOGICAL: Awake and alert. Normal speech. PSYCHIATRIC: Appropriate mood and affect. Urinary Catheter: No Date of Insertion: Jul 01, 2016 Date of Removal: Jul 09, 2016 Vascular Central Line Catheter: No Date of Insertion: Jul 01, 2016 Date of Removal: Jul 06, 2016 A/P Problem List: (1) Atrial fibrillation with RVR ICD Code: I48.91 Status: Acute (2) PNA (pneumonia) ICD Code: J18.9 Status: Acute (3) COPD exacerbation ICD Code: J44.1 Status: Acute (4) Elevated troponin ICD Code: R74.8 Status: Acute Assessment and Plan Cardiomyopathy/NSTEMI/A. fib RVR/PEA arrest/Systolic congestive heart failure/ Hypotension: Status post cardiopulmonary resuscitation with return of spontaneous pulse and breathing Echo 06/30: EF 2530%, aortic valve mild regurgitation, mitral valve mild to moderate regurgitation, tricuspid valve trace to mild regurgitation, systolic function severely diminished. Echo 07/02: EF 30-35% with diffuse hypokinesis and small pericardial effusion. Cardiology was following the patient and signed off on 07/09, indicated patient stable to discharge from cardiology standpoint. Follow-up out patient setting Patient continued on Eliquis for anticoagulation Unable to use beta ganesh, HERMINIO inhibitor, calcium channel ganesh, nitrate, due to low blood pressure. The patient has significant cardiomyopathy; systolic blood pressure 8090 is appropriate as long as MAP > 65. Patient is always hypotensive but orthostasis is not noted this morning. 07/22: Patient has chest tightness starting this morning, likely related to cough but no reproducible tenderness on exam and lung exam is benign. EKG with A.Fib RVR 114. LAD. No obvious ischemia. Troponin <0.02. CK 28. RN later informed me HR fluctuates between 110-130. Discussed with Dr. Newton. Will order Digoxin 0.25 mg po now and start 0.125 mg daily tomorrow as other medications above are contraindicated. 07/24: Chest tightness resolved. Telemetry reviewed; patient's heart rate did go up into the 140s-150's at times yesterday, but HR is mostly within the 90s- low 100s this morning. Continue with Digoxin. 07/25: HR in the 120's, at times higher, on recordings from telemetry, but patient's HR this morning is stable. Remains hypotensive, but no true orthostasis evident. Encephalopathy: Improved. 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 Patient is much more alert EEG does show moderate encephalopathy. CT scans of the brain did not show any acute abnormality. Continue to monitor mental status Speech therapy, cognitive evaluation within normal limits. Regular consistency diet. Deconditioning Continue physical therapy on a daily basis. Visual hallucinations, likely secondary to alcohol detoxing Psychiatry evaluated patient Continue Seroquel 50 mg at bedtime S/P Hypoxic respiratory respiratory failure, COPD exacerbation-resolved Patient intubated 07/01/16, extubated 07/03/16 Bronchodilators discontinued as patient had not been using Prednisone discontinued Pulmonology following the patient Right lower lobe pneumonia-resolving Sputum culture with MRSA, however nasal screen for MRSA was positive also. Could be secondary to colonization. Bactrim till 07/21 Pulmonology following Pulmonary edema-resolved Lasix discontinued; no signs of shortness of breath. Patient with low blood pressure. Hypocalcemia/Hyponatremia/Hypokalemia/Hypomagnesemia: Resolved. Monitor and replete as needed Thrombocytopenia: Improved. No signs of bleeding. Due to alcoholism Monitor CBC GI Prophylaxis: Pepcid twice a day DVT Prophylaxis: On Eliquis Discharge Planning CM following. Mother has been contacted to assist with filing for medicaid. Patient is registered at the homeless coalition. Change is following for benefits. Per CM, patient's mother is willing to answer questions but not assist with finances. 07/17: SSI pending. Needs walker or cane upon discharge. Problem Qualifiers (1) PNA (pneumonia): Qualified Code: J18.1 - Pneumonia of right lower lobe due to infectious organism Erika Mora Jul 25, 2016 12:22
[2016-07-25 20:00] VITALS: BP 124/98; PULSE 105; PULSE 115; RESP 20; TEMP 97.3; O2SAT 98
[2016-07-25] MEDS: QUEtiapine FUMARATE 25 MG TAB PO SCH (21:46)
[2016-07-26] MEDS: THIAMINE HCL 100 MG TAB PO SCH (07:53)
[2016-07-26] MEDS: APIXABAN 5 MG TABLET PO SCH ×2 (07:53→21:33)
[2016-07-26] MEDS: DIGOXIN 0.125 MG TAB PO SCH (07:54)
[2016-07-26] MEDS: MAGNESIUM OXIDE 400 MG TAB PO SCH ×2 (07:54→21:33)
[2016-07-26] MEDS: MULTIVITAMIN TAB PO SCH (07:54)
[2016-07-26 08:00] VITALS: BP_SYST 101; BP_SYST 83; BP_SYST 85; BP_DIAS 55; BP_DIAS 71; BP_DIAS 75; PULSE 93; RESP 20; TEMP 97; O2SAT 99
--- NOTE | 2016-07-26 10:03 | HHI.PR ---
Subjective Remarks Follow-up for A. fib, CHF, pneumonia, s/p cardiac arrest. Nurse informs me the patient didn't feel good earlier and his blood sugar was 67. Patient denies any current chest pain, shortness of breath, or palpitations although still admits to getting shock-like pain in his L chest at times lasting only a second; this has been chronic through hospitalization. The patient states he was nauseous earlier. He feels better now after receiving juice. Objective Vitals Vital Signs Date Time Temp Pulse Resp B/P Pulse Ox O2 Delivery O2 Flow Rate FiO2 07/26/16 08:00 97.0 93 20 101/75 99 85/71 83/55 07/25/16 20:00 97.3 105 20 124/98 98 07/25/16 20:00 115 I/O 07/25/16 07/25/16 07/25/16 07/26/16 07/26/16 07/26/16 07:00 15:00 23:00 07:00 15:00 23:00 Intake Total 480 ml 100 ml 720 ml 120 ml Output Total 1200 ml 1600 ml Balance -720 ml 100 ml -880 ml 120 ml Intake Oral 480 ml 100 ml 720 ml 120 ml Output Urine Total 1200 ml 1600 ml # Voids 1 1 # Bowel Movements 0 0 Objective Remarks GENERAL: Pleasant well-developed patient in no apparent distress. SKIN: Warm and dry. CARDIOVASCULAR: HR in the 70's on radial pulse palpation; around 100 with subsequent auscultation. Irregularly irregular rhythm. RESPIRATORY: No accessory muscle use. Clear to auscultation. Breath sounds equal bilaterally. GASTROINTESTINAL: Abdomen soft, non-tender, nondistended. MUSCULOSKELETAL: No lower extremity edema. NEUROLOGICAL: Awake and alert. Normal speech. PSYCHIATRIC: Appropriate mood and affect. Urinary Catheter: No Date of Insertion: Jul 01, 2016 Date of Removal: Jul 09, 2016 Vascular Central Line Catheter: No Date of Insertion: Jul 01, 2016 Date of Removal: Jul 06, 2016 A/P Problem List: (1) Atrial fibrillation with RVR ICD Code: I48.91 Status: Acute (2) PNA (pneumonia) ICD Code: J18.9 Status: Acute (3) COPD exacerbation ICD Code: J44.1 Status: Acute (4) Elevated troponin ICD Code: R74.8 Status: Acute Assessment and Plan Cardiomyopathy/NSTEMI/A. fib RVR/PEA arrest/Systolic congestive heart failure/ Hypotension: Status post cardiopulmonary resuscitation with return of spontaneous pulse and breathing Echo 06/30: EF 2530%, aortic valve mild regurgitation, mitral valve mild to moderate regurgitation, tricuspid valve trace to mild regurgitation, systolic function severely diminished. Echo 07/02: EF 30-35% with diffuse hypokinesis and small pericardial effusion. Cardiology was following the patient and signed off on 07/09, indicated patient stable to discharge from cardiology standpoint. Follow-up out patient setting Patient continued on Eliquis for anticoagulation Unable to use beta ganesh, HERMINIO inhibitor, calcium channel ganesh, nitrate, due to low blood pressure. The patient has significant cardiomyopathy; systolic blood pressure 8090 is appropriate as long as MAP > 65. Patient is always hypotensive but orthostasis is not noted this morning. 07/22: Patient has chest tightness starting this morning, likely related to cough but no reproducible tenderness on exam and lung exam is benign. EKG with A.Fib RVR 114. LAD. No obvious ischemia. Troponin <0.02. CK 28. RN later informed me HR fluctuates between 110-130. Discussed with Dr. Newton. Will order Digoxin 0.25 mg po now and start 0.125 mg daily tomorrow as other medications above are contraindicated. 07/24: Chest tightness resolved. Telemetry reviewed; patient's heart rate did go up into the 140s-150's at times yesterday, but HR is mostly within the 90s- low 100s this morning. 07/26: Telemetry records HRs mostly in the 120's, at times 140+, but non- sustained. Patient's HR on exam is controlled. Continue current Digoxin dose. Encephalopathy: Improved. 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 Patient is much more alert EEG does show moderate encephalopathy. CT scans of the brain did not show any acute abnormality. Continue to monitor mental status Speech therapy, cognitive evaluation within normal limits. Regular consistency diet. Deconditioning Continue physical therapy on a daily basis. Visual hallucinations, likely secondary to alcohol detoxing Psychiatry evaluated patient Continue Seroquel 50 mg at bedtime S/P Hypoxic respiratory respiratory failure, COPD exacerbation-resolved Patient intubated 07/01/16, extubated 07/03/16 Bronchodilators discontinued as patient had not been using Prednisone discontinued Pulmonology following the patient Right lower lobe pneumonia-resolving Sputum culture with MRSA, however nasal screen for MRSA was positive also. Could be secondary to colonization. Bactrim till 07/21 Pulmonology following Pulmonary edema-resolved Lasix discontinued; no signs of shortness of breath. Patient with low blood pressure. Hypocalcemia/Hyponatremia/Hypokalemia/Hypomagnesemia: Resolved. Monitor and replete as needed Thrombocytopenia: Improved. No signs of bleeding. Due to alcoholism Monitor CBC GI Prophylaxis: Pepcid twice a day DVT Prophylaxis: On Eliquis Discharge Planning CM following. Mother has been contacted to assist with filing for medicaid. [facility] is [facility] at [facility]. Change is following for benefits. Per CM, patient's mother is willing to answer questions but not assist with finances. 07/17: SSI pending. Needs walker or cane upon discharge. Problem Qualifiers (1) PNA (pneumonia): Qualified Code: J18.1 - Pneumonia of right lower lobe due to infectious organism Erika Mora Jul 26, 2016 10:03
[2016-07-26 10:40] VITALS: PULSE 88
[2016-07-26] MEDS: ACETAMINOPHEN 325 MG TAB PO PRN (14:15)
[2016-07-26 20:00] VITALS: BP 89/68; PULSE 100; RESP 20; TEMP 95.6; O2SAT 98
--- NOTE | 2016-07-26 20:16 | HHI.PR ---
Subjective Remarks 45 YOWM with VDRF,s/p cardiac arrest X2 Good appetite No fever or chills Occ cough, no sputum Denies sob, palptation or CP had nausea, improved Objective Vital Signs Vital Signs Date Time Temp Pulse Resp B/P Pulse Ox O2 Delivery O2 Flow Rate FiO2 07/26/16 10:40 88 07/26/16 08:00 97.0 93 20 101/75 99 85/71 83/55 I/O 07/25/16 07/25/16 07/25/16 07/26/16 07/26/16 07/26/16 07:00 15:00 23:00 07:00 15:00 23:00 Intake Total 480 ml 100 ml 720 ml 120 ml 960 ml Output Total 1200 ml 1600 ml Balance -720 ml 100 ml -880 ml 120 ml 960 ml Intake Oral 480 ml 100 ml 720 ml 120 ml 960 ml Output Urine Total 1200 ml 1600 ml # Voids 1 1 3 # Bowel Movements 0 0 1 Objective Remarks GENERAL: WBWN male, on Vent SKIN: Warm and dry. HEAD: Normocephalic. EYES: No scleral icterus. No injection or drainage. NECK: Supple, trachea midline. No JVD or lymphadenopathy. CARDIOVASCULAR: Regular rate and rhythm without murmurs, gallops, or rubs. RESPIRATORY: Breath sounds equal bilaterally. No accessory muscle use. GASTROINTESTINAL: Abdomen soft, non-tender, nondistended. MUSCULOSKELETAL: No cyanosis, or edema. BACK: Nontender without obvious deformity. No CVA tenderness. A/P Assessment and Plan VDRF, s/p extubation 07/03 S/P cardiac arrest CHF AF COPD PLAN: Stable on RA Encourage PO intake PO Bactrim Stable from Pulm standpoint. Tomer Whitlock MD Jul 26, 2016 20:16
[2016-07-26] MEDS: QUEtiapine FUMARATE 25 MG TAB PO SCH (21:33)
[2016-07-26 23:00] VITALS: PULSE 116
[2016-07-27 08:00] VITALS: BP_SYST 103; BP_SYST 110; BP_SYST 111; BP_DIAS 78; BP_DIAS 81; BP_DIAS 89; PULSE 100; RESP 18; TEMP 97.5; O2SAT 98
[2016-07-27 08:29] LABS: CREATINE KINASE 22 U/L (39-308)
[2016-07-27] MEDS: MAGNESIUM OXIDE 400 MG TAB PO SCH ×2 (08:42→21:42)
[2016-07-27] MEDS: MULTIVITAMIN TAB PO SCH (08:42)
[2016-07-27] MEDS: DIGOXIN 0.125 MG TAB PO SCH (08:42)
[2016-07-27] MEDS: THIAMINE HCL 100 MG TAB PO SCH (08:42)
[2016-07-27] MEDS: APIXABAN 5 MG TABLET PO SCH ×2 (08:42→21:42)
[2016-07-27 09:39] LABS: HDL CHOLESTEROL 40.8 MG/DL (40.0-60.0)
[2016-07-27] MEDS ORDERED: REGADENOSON INJ 0.4 MG/5 ML SYR IV ONE (10:44)
--- NOTE | 2016-07-27 11:49 | RADHPO ---
EXAM DATE/TIME: 07/27/2016 10:31 [facility] COMPARISON: CHEST SINGLE AP, July 11, 2016, 21:15. INDICATIONS : Chest pain with atrial fibrillation. Angina. Atrial fibrillation. DOSE: 25.8 mCi Tc99m Myoview at stress. 8.2 mCi Tc99m Myoview at rest. 0.4 mg Lexiscan STRESS SYMPTOMS: None. EJECTION FRACTION: 29% MEDICAL HISTORY : Congestive heart failure. Cardiomegaly. SURGICAL HISTORY : Colostomy. ENCOUNTER: Initial ACUITY: 2 days PAIN SCALE: 2/10 LOCATION: Bilateral chest TECHNIQUE: The patient underwent pharmacologic stress with infusion of prescribed dose. Continuous ECG tracing was monitored during stress. Gated SPECT imaging was performed after stress and conventional SPECT i maging was performed at rest. The examination was performed on a SPECT/CT scanner, both attenuation and non-corrected datasets were reviewed. FINDINGS: DISTRIBUTION: The maximum perfused segment at stress is in the anterolateral wall. PERFUSION STUDY: No fixed or reversible perfusion defect is identified. Left ventricle is enlarged. GATED STUDY: There is global hypokinesia. No focal wall motion abnormality is appreciated. CONCLUSION: 1. No fixed or reversible perfusion defect is identified. 2. However, left ventricle is dilated with global hypokinesia and abnormally reduced left ventricle e jection fraction calculated at 29%. RISK CATEGORY: Intermediate (1-3% Annual Mortality Rate) Madhav Graham MD on July 27, 2016 at 11:43 Board Certified Radiologist. This report was verified electronically.
--- NOTE | 2016-07-27 14:41 | HHI.PR ---
Subjective Remarks Patient seen and examined today. Patient states that he has not had any real chest pain since 07/22. However he has had intermittent sharp stabbing pain in the left side of his chest going into his back. Objective Vitals Vital Signs Date Time Temp Pulse Resp B/P Pulse Ox O2 Delivery O2 Flow Rate FiO2 07/27/16 08:00 97.5 100 18 111/89 98 103/78 110/81 07/26/16 23:00 116 07/26/16 20:00 95.6 100 20 89/68 98 I/O 07/26/16 07/26/16 07/26/16 07/27/16 07/27/16 07/27/16 07:00 15:00 23:00 07:00 15:00 23:00 Intake Total 120 ml 1320 ml 240 ml Output Total 500 ml 1300 ml Balance 120 ml 820 ml -1060 ml Intake Oral 120 ml 1320 ml 240 ml IV Total 0 ml Output Urine Total 500 ml 1300 ml # Voids 1 3 # Bowel Movements 1 Objective Remarks GENERAL: Well-developed, well-nourished, in no acute distress. alert and orientated to person, month, place, current events HEENT: Head is normocephalic without any lesions or masses noted. Facial features are symmetric. Eyes: Extraocular muscles are intact. Conjunctivae were clear. Oropharyngeal: Pharynx without any erythema edema. Tongue is midline without deviation. Buccal mucosa is moist without any masses or lesions NECK: Supple without any masses. Trachea midline no deviation. No JVD, no bruits are appreciated CARDIAC: Regular rhythm, regular rate. S1/S2 are heard. No murmurs gallops or rubs. LUNGS: Clear to auscultation bilaterally. No wheeze, rhonchi or rales. No use of accessory muscles on inspiration or expiration. ABDOMEN: Soft, nontender. Nondistended. Bowel sounds heard in all 4 quadrants. No organomegaly or masses. Negative rebound, negative guarding EXTREMITIES: No edema, pulses are equal bilaterally. No cyanosis or clubbing NEUROLOGY: Mood and affect appear appropriate. Cranial nerves II through XII grossly intact. Muscle strength 5/5 in upper and lower extremities bilaterally. Deep tendon reflexes are 2+ in upper and lower extremities bilaterally. Urinary Catheter: No Date of Insertion: Jul 01, 2016 Date of Removal: Jul 09, 2016 Vascular Central Line Catheter: No Date of Insertion: Jul 01, 2016 Date of Removal: Jul 06, 2016 A/P Assessment and Plan Chest pain, atypical Cardiac enzymes were performed which did not indicate any acute coronary event EKG shows atrial fibrillation with PVCs. No signs of any acute coronary event Nuclear stress test was performed which did not indicate any signs of reversible perfusion defect. However did indicate left ventricle dilation with global hypokinesis and ejection fraction 29%. Lipid panel performed which did show LDL 129, we'll start Lipitor 20 mg daily Encephalopathy: Significantly improved. 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 Patient is much more alert EEG does show moderate encephalopathy, CT scans of the brain did not show any acute abnormality Continue monitor mental status Speech therapy, cognitive evaluation within normal limits. Regular consisting diet Deconditioning Continue physical therapy on a daily basis. Patient only walked 26 feet Physical therapy indicates that patient may need use walker or cane upon discharge. Other prior setting which is homeless. Patient is walking 45 and 60 feet slowly with contact-guard Visual hallucinations, likely secondary to alcohol detoxing Psychiatry evaluated patient Patient started on Seroquel 50 mg at bedtime S/P Hypoxic respiratory respiratory failure, COPD exacerbation-resolved Patient intubated 07/01/16, extubated 07/03/16 Bronchodilators every 2 hours as needed, patient has not required any in 2 weeks, will discontinue at this time Patient continued on prednisone 10 mg twice daily, will discontinue that at this time Pulmonology following the patient Right lower lobe resolved Sputum culture with MRSA, however nasal screen for MRSA was positive also. Could be secondary to colonization Patient on Bactrim till 07/21 Pulmonary edema-resolved Discontinue Lasix, no signs of shortness of breath. Patient with low blood pressure. Cardiomyopathy/NSTEMI/PEA arrest/Systolic congestive heart failure/Hypotension: Status post cardiopulmonary resuscitation with return of spontaneous pulse and breathing Echo 06/30: EF 2530%, aortic valve mild regurgitation, mitral valve mild to moderate regurgitation, tricuspid valve trace to mild regurgitation, systolic function severely diminished. Echo 07/02: EF 30-35% with diffuse hypokinesis and small pericardial effusion. Cardiology was following the patient and signed off on 07/09, indicated patient stable to discharge from cardiology standpoint. Follow-up out patient setting Unable to use beta ganesh, HERMINIO inhibitor, calcium channel ganesh, nitrate, due to low blood pressure. The patient significant cardiomyopathy systolic blood pressure 8090 is appropriate as long as map is staying above 65 Atrial fibrillation with RVR, Unable to use calcium channel blockers, beta blockers, amiodarone for rate control or conversion due to low blood pressure secondary to cardiomyopathy Patient has had recent echocardiogram on 07/02/16 Chads score is 2 Patient anticoagulated with Eliquis Hypocalcemia/Hyponatremia/Hypokalemia/Hypomagnesemia: Resolved. Monitor and replete as needed Thrombocytopenia: Improved. No signs of bleeding. Due to alcoholism Monitor CBC GI Prophylaxis: Pepcid twice a day DVT Prophylaxis: On Eliquis Discharge Planning Case management for discharge planning. Awaiting PT clearance for discharge Evangelist Woods Jul 27, 2016 14:41
[2016-07-27 20:00] VITALS: BP_SYST 110; BP_SYST 94; BP_SYST 96; BP_DIAS 58; BP_DIAS 62; BP_DIAS 70; PULSE 108; PULSE 68; PULSE 88; RESP 20; TEMP 98.3; O2SAT 98
[2016-07-27] MEDS: QUEtiapine FUMARATE 25 MG TAB PO SCH (21:42)
[2016-07-28 08:00] VITALS: BP 97/76; PULSE 89; RESP 18; TEMP 97.8; O2SAT 99
[2016-07-28] MEDS: MAGNESIUM OXIDE 400 MG TAB PO SCH ×2 (09:05→21:00)
[2016-07-28] MEDS: ATORVASTATIN 20 MG TAB PO SCH (09:06)
[2016-07-28] MEDS: MULTIVITAMIN TAB PO SCH (09:06)
[2016-07-28] MEDS: APIXABAN 5 MG TABLET PO SCH ×2 (09:06→20:35)
[2016-07-28] MEDS: THIAMINE HCL 100 MG TAB PO SCH (09:06)
[2016-07-28] MEDS: DIGOXIN 0.125 MG TAB PO SCH (09:06)
--- NOTE | 2016-07-28 09:48 | HHI.PR ---
Subjective Remarks Patient seen and examined today. Patient denies any new problems. Patient does not have a recurrent chest pain. Objective Vitals Vital Signs Date Time Temp Pulse Resp B/P Pulse Ox O2 Delivery O2 Flow Rate FiO2 07/28/16 08:00 97.8 89 18 97/76 99 07/27/16 20:00 98.3 108 20 94/62 98 Automatic Cuff 07/27/16 20:00 88 96/70 07/27/16 20:00 68 110/58 I/O 07/27/16 07/27/16 07/27/16 07/28/16 07/28/16 07/28/16 07:00 15:00 23:00 07:00 15:00 23:00 Intake Total 240 ml 240 ml Output Total 1300 ml 550 ml 800 ml Balance -1060 ml -550 ml -800 ml 240 ml Intake Oral 240 ml 240 ml Output Urine Total 1300 ml 550 ml 800 ml # Voids 2 # Bowel Movements 0 Objective Remarks GENERAL: Well-developed, well-nourished, in no acute distress. alert and orientated to person, month, place, current events HEENT: Head is normocephalic without any lesions or masses noted. Facial features are symmetric. Eyes: Extraocular muscles are intact. Conjunctivae were clear. Oropharyngeal: Pharynx without any erythema edema. Tongue is midline without deviation. Buccal mucosa is moist without any masses or lesions NECK: Supple without any masses. Trachea midline no deviation. No JVD, no bruits are appreciated CARDIAC: Regular rhythm, regular rate. S1/S2 are heard. No murmurs gallops or rubs. LUNGS: Clear to auscultation bilaterally. No wheeze, rhonchi or rales. No use of accessory muscles on inspiration or expiration. ABDOMEN: Soft, nontender. Nondistended. Bowel sounds heard in all 4 quadrants. No organomegaly or masses. Negative rebound, negative guarding EXTREMITIES: No edema, pulses are equal bilaterally. No cyanosis or clubbing NEUROLOGY: Mood and affect appear appropriate. Cranial nerves II through XII grossly intact. Muscle strength 5/5 in upper and lower extremities bilaterally. Deep tendon reflexes are 2+ in upper and lower extremities bilaterally. Urinary Catheter: No Date of Insertion: Jul 01, 2016 Date of Removal: Jul 09, 2016 Vascular Central Line Catheter: No Date of Insertion: Jul 01, 2016 Date of Removal: Jul 06, 2016 A/P Assessment and Plan Chest pain, atypical Cardiac enzymes were performed which did not indicate any acute coronary event EKG shows atrial fibrillation with PVCs. No signs of any acute coronary event Nuclear stress test was performed which did not indicate any signs of reversible perfusion defect. However did indicate left ventricle dilation with global hypokinesis and ejection fraction 29%. Lipid panel performed which did show LDL 129, continue Lipitor 20 mg daily Encephalopathy: Significantly improved. 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 Patient is much more alert EEG does show moderate encephalopathy, CT scans of the brain did not show any acute abnormality Continue monitor mental status Speech therapy, cognitive evaluation within normal limits. Regular consisting diet Deconditioning Continue physical therapy on a daily basis. Patient walking 110 feet with contact-guard assist Physical therapy indicates that patient may need use walker or cane upon discharge. Other prior setting which is homeless. Patient is walking 45 and 60 feet slowly with contact-guard Visual hallucinations, resolved likely secondary to alcohol detoxing Psychiatry evaluated patient Patient started on Seroquel 50 mg at bedtime S/P Hypoxic respiratory respiratory failure, COPD exacerbation-resolved Patient intubated 07/01/16, extubated 07/03/16 Bronchodilators every 2 hours as needed, patient has not required any in 2 weeks, will discontinue at this time Patient continued on prednisone 10 mg twice daily, will discontinue that at this time Pulmonology following the patient Right lower lobe resolved Sputum culture with MRSA, however nasal screen for MRSA was positive also. Could be secondary to colonization Patient on Bactrim till 07/21 Pulmonary edema-resolved Discontinue Lasix, no signs of shortness of breath. Patient with low blood pressure. Cardiomyopathy/NSTEMI/PEA arrest/Systolic congestive heart failure/Hypotension: Status post cardiopulmonary resuscitation with return of spontaneous pulse and breathing Echo 06/30: EF 2530%, aortic valve mild regurgitation, mitral valve mild to moderate regurgitation, tricuspid valve trace to mild regurgitation, systolic function severely diminished. Echo 07/02: EF 30-35% with diffuse hypokinesis and small pericardial effusion. Cardiology was following the patient and signed off on 07/09, indicated patient stable to discharge from cardiology standpoint. Follow-up out patient setting Unable to use beta ganesh, HERMINIO inhibitor, calcium channel ganesh, nitrate, due to low blood pressure. The patient significant cardiomyopathy systolic blood pressure 8090 is appropriate as long as map is staying above 65 Atrial fibrillation with RVR, heart rate controlled Unable to use calcium channel blockers, beta blockers, amiodarone for rate control or conversion due to low blood pressure secondary to cardiomyopathy Patient started on digoxin 0.125 mg daily Patient has had recent echocardiogram on 07/02/16 Chads score is 2 Patient anticoagulated with Eliquis Hypocalcemia/Hyponatremia/Hypokalemia/Hypomagnesemia: Resolved. Monitor and replete as needed Thrombocytopenia: Improved. No signs of bleeding. Due to alcoholism Monitor CBC GI Prophylaxis: Pepcid twice a day DVT Prophylaxis: On Eliquis Discharge Planning Case management for discharge planning. Awaiting PT clearance for discharge Evangelist Woods Jul 28, 2016 09:48
--- NOTE | 2016-07-28 11:56 | EKG ---
Date Performed: 07/27/2016 Time Performed: 07:37:12 PTAGE: 45 years EKG: Atrial fibrillation with PVC(s). Possible left anterior fascicular block Abnormal ECG PREVIOUS TRACING : 07/22/2016 15.24 DOCTOR: Axel Samayoa Interpretating Date/Time 07/28/2016 11:49:34
--- NOTE | 2016-07-28 18:31 | HHI.PR ---
Subjective Remarks 45 YOWM with VDRF,s/p cardiac arrest X2 Good appetite No fever or chills Occ cough, no sputum Denies sob, palptation or CP Objective Vital Signs Vital Signs Date Time Temp Pulse Resp B/P Pulse Ox O2 Delivery O2 Flow Rate FiO2 07/28/16 08:00 97.8 89 18 97/76 99 07/27/16 20:00 98.3 108 20 94/62 98 Automatic Cuff 07/27/16 20:00 88 96/70 07/27/16 20:00 68 110/58 I/O 07/27/16 07/27/16 07/27/16 07/28/16 07/28/16 07/28/16 07:00 15:00 23:00 07:00 15:00 23:00 Intake Total 240 ml 240 ml Output Total 1300 ml 550 ml 800 ml 1000 ml Balance -1060 ml -550 ml -800 ml 240 ml -1000 ml Intake Oral 240 ml 240 ml Output Urine Total 1300 ml 550 ml 800 ml 1000 ml # Voids 2 # Bowel Movements 0 Objective Remarks GENERAL: WBWN male, on Vent SKIN: Warm and dry. HEAD: Normocephalic. EYES: No scleral icterus. No injection or drainage. NECK: Supple, trachea midline. No JVD or lymphadenopathy. CARDIOVASCULAR: Regular rate and rhythm without murmurs, gallops, or rubs. RESPIRATORY: Breath sounds equal bilaterally. No accessory muscle use. GASTROINTESTINAL: Abdomen soft, non-tender, nondistended. MUSCULOSKELETAL: No cyanosis, or edema. BACK: Nontender without obvious deformity. No CVA tenderness. A/P Assessment and Plan VDRF, s/p extubation 07/03 S/P cardiac arrest CHF AF COPD PLAN: Stable on RA Encourage PO intake PO Bactrim Stable from Pulm standpoint. Will get BS PFT Tomer Whitlock MD Jul 28, 2016 18:31
[2016-07-28 20:00] VITALS: BP 114/79; PULSE 98; RESP 20; TEMP 98.2; O2SAT 98
[2016-07-28] MEDS: QUEtiapine FUMARATE 25 MG TAB PO SCH (20:35)
[2016-07-29 08:20] VITALS: BP 94/66; PULSE 114; RESP 19; TEMP 96.5; O2SAT 98
[2016-07-29] MEDS: ATORVASTATIN 20 MG TAB PO SCH (08:25)
[2016-07-29] MEDS: THIAMINE HCL 100 MG TAB PO SCH (08:25)
[2016-07-29] MEDS: APIXABAN 5 MG TABLET PO SCH ×2 (08:25→20:16)
[2016-07-29] MEDS: MULTIVITAMIN TAB PO SCH (08:26)
[2016-07-29] MEDS: MAGNESIUM OXIDE 400 MG TAB PO SCH ×2 (08:26→20:16)
[2016-07-29] MEDS: DIGOXIN 0.125 MG TAB PO SCH (08:26)
--- NOTE | 2016-07-29 10:10 | HHI.PR ---
Subjective Remarks Patient seen and examined today. Patient denies any new complaints. Patient states these little sore from increased activity yesterday. Objective Vitals Vital Signs Date Time Temp Pulse Resp B/P Pulse Ox O2 Delivery O2 Flow Rate FiO2 07/29/16 08:20 96.5 114 19 94/66 98 07/28/16 20:00 98.2 98 20 114/79 98 I/O 07/28/16 07/28/16 07/28/16 07/29/16 07/29/16 07/29/16 07:00 15:00 23:00 07:00 15:00 23:00 Intake Total 240 ml 100 ml Output Total 1325 ml Balance 240 ml -1225 ml Intake Oral 240 ml 100 ml Output Urine Total 1325 ml # Voids 2 # Bowel Movements 0 0 Objective Remarks GENERAL: Well-developed, well-nourished, in no acute distress. alert and orientated to person, month, place, current events HEENT: Head is normocephalic without any lesions or masses noted. Facial features are symmetric. Eyes: Extraocular muscles are intact. Conjunctivae were clear. NECK: Supple without any masses. Trachea midline no deviation. No JVD, CARDIAC: Regular rhythm, regular rate. S1/S2 are heard. No murmurs gallops or rubs. LUNGS: Clear to auscultation bilaterally. No wheeze, rhonchi or rales. No use of accessory muscles on inspiration or expiration. ABDOMEN: Soft, nontender. Nondistended. Bowel sounds heard in all 4 quadrants. No organomegaly or masses. Negative rebound, negative guarding EXTREMITIES: No edema, pulses are equal bilaterally. No cyanosis or clubbing NEUROLOGY: Mood and affect appear appropriate. Cranial nerves II through XII grossly intact. Moving all extremities, speech is clear Urinary Catheter: No Date of Insertion: Jul 01, 2016 Date of Removal: Jul 09, 2016 Vascular Central Line Catheter: No Date of Insertion: Jul 01, 2016 Date of Removal: Jul 06, 2016 A/P Assessment and Plan Chest pain, atypical Cardiac enzymes were performed which did not indicate any acute coronary event EKG shows atrial fibrillation with PVCs. No signs of any acute coronary event Nuclear stress test was performed which did not indicate any signs of reversible perfusion defect. However did indicate left ventricle dilation with global hypokinesis and ejection fraction 29%. Lipid panel performed which did show LDL 129, continue Lipitor 20 mg daily Encephalopathy: Significantly improved. 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 Patient is much more alert EEG does show moderate encephalopathy, CT scans of the brain did not show any acute abnormality Continue monitor mental status Speech therapy, cognitive evaluation within normal limits. Regular consisting diet Deconditioning Continue physical therapy on a daily basis. Patient walking 110 feet with contact-guard assist Physical therapy indicates that patient may need use walker or cane upon discharge. Other prior setting which is homeless. Patient is walking 45 and 60 feet slowly with contact-guard Visual hallucinations, resolved likely secondary to alcohol detoxing Psychiatry evaluated patient Patient started on Seroquel 50 mg at bedtime S/P Hypoxic respiratory respiratory failure, COPD exacerbation-resolved Patient intubated 07/01/16, extubated 07/03/16 Bronchodilators every 2 hours as needed, patient has not required any in 2 weeks, will discontinue at this time Patient continued on prednisone 10 mg twice daily, will discontinue that at this time Pulmonology following the patient Right lower lobe resolved Sputum culture with MRSA, however nasal screen for MRSA was positive also. Could be secondary to colonization Patient on Bactrim till 07/21 Pulmonary edema-resolved Discontinue Lasix, no signs of shortness of breath. Patient with low blood pressure. Cardiomyopathy/NSTEMI/PEA arrest/Systolic congestive heart failure/Hypotension: Status post cardiopulmonary resuscitation with return of spontaneous pulse and breathing Echo 06/30: EF 2530%, aortic valve mild regurgitation, mitral valve mild to moderate regurgitation, tricuspid valve trace to mild regurgitation, systolic function severely diminished. Echo 07/02: EF 30-35% with diffuse hypokinesis and small pericardial effusion. Cardiology was following the patient and signed off on 07/09, indicated patient stable to discharge from cardiology standpoint. Follow-up out patient setting Unable to use beta ganesh, HERMINIO inhibitor, calcium channel ganesh, nitrate, due to low blood pressure. The patient significant cardiomyopathy systolic blood pressure 8090 is appropriate as long as map is staying above 65 Atrial fibrillation with RVR, heart rate controlled Unable to use calcium channel blockers, beta blockers, amiodarone for rate control or conversion due to low blood pressure secondary to cardiomyopathy Patient started on digoxin 0.125 mg daily Patient has had recent echocardiogram on 07/02/16 Chads score is 2 Patient anticoagulated with Eliquis Hypocalcemia/Hyponatremia/Hypokalemia/Hypomagnesemia: Resolved. Monitor and replete as needed Thrombocytopenia: Improved. No signs of bleeding. Due to alcoholism Monitor CBC GI Prophylaxis: Pepcid twice a day DVT Prophylaxis: On Eliquis Discharge Planning Case management for discharge planning. Awaiting PT clearance for discharge Evangelist Woods Jul 29, 2016 10:10
--- NOTE | 2016-07-29 19:11 | HHI.PR ---
Subjective Remarks 45 YOWM with VDRF,s/p cardiac arrest X2 Good appetite No fever or chills Occ cough, no sputum Denies sob, palptation or CP Up on the side of bed Objective Vital Signs Vital Signs Date Time Temp Pulse Resp B/P Pulse Ox O2 Delivery O2 Flow Rate FiO2 07/29/16 08:20 96.5 114 19 94/66 98 07/28/16 20:00 98.2 98 20 114/79 98 I/O 07/28/16 07/28/16 07/28/16 07/29/16 07/29/16 07/29/16 07:00 15:00 23:00 07:00 15:00 23:00 Intake Total 240 ml 100 ml Output Total 1325 ml 875 ml Balance 240 ml -1225 ml -875 ml Intake Oral 240 ml 100 ml Output Urine Total 1325 ml 875 ml # Voids 2 # Bowel Movements 0 0 1 Objective Remarks GENERAL: WBWN male, on Vent SKIN: Warm and dry. HEAD: Normocephalic. EYES: No scleral icterus. No injection or drainage. NECK: Supple, trachea midline. No JVD or lymphadenopathy. CARDIOVASCULAR: Regular rate and rhythm without murmurs, gallops, or rubs. RESPIRATORY: Breath sounds equal bilaterally. No accessory muscle use. GASTROINTESTINAL: Abdomen soft, non-tender, nondistended. MUSCULOSKELETAL: No cyanosis, or edema. BACK: Nontender without obvious deformity. No CVA tenderness. A/P Assessment and Plan VDRF, s/p extubation 07/03 S/P cardiac arrest CHF AF COPD PLAN: Stable on RA Encourage PO intake PO Bactrim Stable from Pulm standpoint. Tomer Whitlock MD Jul 29, 2016 19:11
[2016-07-29 20:00] VITALS: BP 108/75; PULSE 97; RESP 18; TEMP 97.4; O2SAT 99
[2016-07-29] MEDS: QUEtiapine FUMARATE 25 MG TAB PO SCH (20:15)
[2016-07-30 08:00] VITALS: BP 90/75; PULSE 92; RESP 20; TEMP 97.4; O2SAT 99
[2016-07-30] MEDS: ATORVASTATIN 20 MG TAB PO SCH (08:40)
[2016-07-30] MEDS: DIGOXIN 0.125 MG TAB PO SCH (08:40)
[2016-07-30] MEDS: APIXABAN 5 MG TABLET PO SCH ×2 (08:40→21:52)
[2016-07-30] MEDS: THIAMINE HCL 100 MG TAB PO SCH (08:41)
[2016-07-30] MEDS: MAGNESIUM OXIDE 400 MG TAB PO SCH ×2 (08:41→21:52)
[2016-07-30] MEDS: MULTIVITAMIN TAB PO SCH (08:41)
--- NOTE | 2016-07-30 16:24 | HHI.PR ---
Subjective Remarks Patient seen and examined today. Patient denies any new complaints. No change in clinical status. Counseled patient extensively on his cardiac condition and requirement for outpatient follow-up. Objective Vitals Vital Signs Date Time Temp Pulse Resp B/P Pulse Ox O2 Delivery O2 Flow Rate FiO2 07/30/16 08:00 97.4 92 20 90/75 99 07/29/16 20:00 97.4 97 18 108/75 99 I/O 07/29/16 07/29/16 07/29/16 07/30/16 07/30/16 07/30/16 07:00 15:00 23:00 07:00 15:00 23:00 Intake Total 600 ml 480 ml 1980 ml Output Total 875 ml 600 ml 400 ml 1000 ml Balance -875 ml 0 ml 80 ml 980 ml Intake Oral 600 ml 480 ml 1980 ml Output Urine Total 875 ml 600 ml 400 ml 1000 ml # Bowel Movements 1 1 0 1 Imaging Last Impressions Myocardial Perfusion Scan Nuc Med 07/27/16 0000 Signed Impressions: Service Date/Time: Wednesday, July 27, 2016 10:31 - CONCLUSION: 1. No fixed or reversible perfusion defect is identified. 2. However, left ventricle is dilated with global hypokinesia and abnormally reduced left ventricle ejection fraction calculated at 29%%. RISK CATEGORY: Intermediate (1-3%% Annual Mortality Rate) Madhav Graham MD Chest X-Ray 07/11/16 0000 Signed Impressions: Service Date/Time: Monday, July 11, 2016 21:15 - CONCLUSION: 1. Resolution of previous basilar airspace disease. No infiltrate or effusion. Cardiomegaly. Eugene Branch MD Head CT [id number]/01/[id number] Signed Impressions: Service Date/Time: Friday, July 01, 2016 21:13 - CONCLUSION: No acute disease. Darian Oswald MD Abdomen Ultrasound 07/01/16 0000 Signed Impressions: Service Date/Time: Friday, July 01, 2016 09:33 - CONCLUSION: Small amount of ascites seen around the liver and spleen. This is not large enough to drain. Madhav Guy MD Objective Remarks GENERAL: Well-developed, well-nourished, in no acute distress. alert and orientated to person, month, place, current events HEENT: Head is normocephalic without any lesions or masses noted. Facial features are symmetric. Eyes: Extraocular muscles are intact. Conjunctivae were clear. NECK: Supple without any masses. Trachea midline no deviation. No JVD, CARDIAC: Regular rhythm, regular rate. S1/S2 are heard. No murmurs gallops or rubs. LUNGS: Clear to auscultation bilaterally. No wheeze, rhonchi or rales. No use of accessory muscles on inspiration or expiration. ABDOMEN: Soft, nontender. Nondistended. Bowel sounds heard in all 4 quadrants. No organomegaly or masses. Negative rebound, negative guarding EXTREMITIES: No edema, pulses are equal bilaterally. No cyanosis or clubbing NEUROLOGY: Mood and affect appear appropriate. Cranial nerves II through XII grossly intact. Moving all extremities, speech is clear Urinary Catheter: No Date of Insertion: Jul 01, 2016 Date of Removal: Jul 09, 2016 Vascular Central Line Catheter: No Date of Insertion: Jul 01, 2016 Date of Removal: Jul 06, 2016 A/P Assessment and Plan Chest pain, atypical Cardiac enzymes were performed which did not indicate any acute coronary event EKG shows atrial fibrillation with PVCs. No signs of any acute coronary event Nuclear stress test was performed which did not indicate any signs of reversible perfusion defect. However did indicate left ventricle dilation with global hypokinesis and ejection fraction 29%. Lipid panel performed which did show LDL 129, continue Lipitor 20 mg daily Encephalopathy: Significantly improved. 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 Patient is much more alert EEG does show moderate encephalopathy, CT scans of the brain did not show any acute abnormality Continue monitor mental status Speech therapy, cognitive evaluation within normal limits. Regular consisting diet Deconditioning Continue physical therapy on a daily basis. Patient walking 110 feet with contact-guard assist Physical therapy indicates that patient may need use walker or cane upon discharge. Other prior setting which is homeless. Patient is walking 45 and 60 feet slowly with contact-guard Visual hallucinations, resolved likely secondary to alcohol detoxing Psychiatry evaluated patient Patient started on Seroquel 50 mg at bedtime S/P Hypoxic respiratory respiratory failure, COPD exacerbation-resolved Patient intubated 07/01/16, extubated 07/03/16 Bronchodilators every 2 hours as needed, patient has not required any in 2 weeks, will discontinue at this time Patient continued on prednisone 10 mg twice daily, will discontinue that at this time Pulmonology following the patient Right lower lobe resolved Sputum culture with MRSA, however nasal screen for MRSA was positive also. Could be secondary to colonization Patient on Bactrim till 07/21 Pulmonary edema-resolved Discontinue Lasix, no signs of shortness of breath. Patient with low blood pressure. Cardiomyopathy/NSTEMI/PEA arrest/Systolic congestive heart failure/Hypotension: Status post cardiopulmonary resuscitation with return of spontaneous pulse and breathing Echo 06/30: EF 2530%, aortic valve mild regurgitation, mitral valve mild to moderate regurgitation, tricuspid valve trace to mild regurgitation, systolic function severely diminished. Echo 07/02: EF 30-35% with diffuse hypokinesis and small pericardial effusion. Cardiology was following the patient and signed off on 07/09, indicated patient stable to discharge from cardiology standpoint. Follow-up out patient setting Unable to use beta ganesh, HERMINIO inhibitor, calcium channel ganesh, nitrate, due to low blood pressure. The patient significant cardiomyopathy systolic blood pressure 8090 is appropriate as long as map is staying above 65 Discuss with cardiology who indicated patient will require evaluation for AICD and 90 days post cardiac arrest. Patient will require outpatient follow-up Atrial fibrillation with RVR, heart rate controlled Unable to use calcium channel blockers, beta blockers, amiodarone for rate control or conversion due to low blood pressure secondary to cardiomyopathy Patient started on digoxin 0.125 mg daily Patient has had recent echocardiogram on 07/02/16 Chads score is 2 Patient anticoagulated with Eliquis Hypocalcemia/Hyponatremia/Hypokalemia/Hypomagnesemia: Resolved. Monitor and replete as needed Thrombocytopenia: Improved. No signs of bleeding. Due to alcoholism Monitor CBC GI Prophylaxis: Pepcid twice a day DVT Prophylaxis: On Eliquis Discharge Planning Case management for discharge planning. Awaiting PT clearance for discharge Evangelist Woods Jul 30, 2016 16:24 Miguel Ángel Bustamante MD Jul 30, 2016 21:51
[2016-07-30 20:00] VITALS: BP 104/71; PULSE 73; RESP 18; TEMP 99.2; O2SAT 97
[2016-07-30] MEDS: QUEtiapine FUMARATE 25 MG TAB PO SCH (21:52)
[2016-07-31 06:16] LABS: INDIRECT BILIRUBIN 0.2 MG/DL (0.0-0.8); TOTAL BILIRUBIN ADULT 0.5 MG/DL (0.2-1.0)
--- NOTE | 2016-07-31 08:04 | HHI.PR ---
Subjective Remarks Patient seen and examined today. Patient states that he had difficult time sleeping last night. Otherwise, patient is doing well. Working with physical therapy to get stronger. Objective Vitals Vital Signs Date Time Temp Pulse Resp B/P Pulse Ox O2 Delivery O2 Flow Rate FiO2 07/30/16 20:00 99.2 73 18 104/71 97 07/30/16 08:00 97.4 92 20 90/75 99 I/O 07/30/16 07/30/16 07/30/16 07/31/16 07/31/16 07/31/16 07:00 15:00 23:00 07:00 15:00 23:00 Intake Total 480 ml 1980 ml 240 ml Output Total 400 ml 1000 ml 400 ml Balance 80 ml 980 ml -160 ml Intake Oral 480 ml 1980 ml 240 ml Output Urine Total 400 ml 1000 ml 400 ml # Bowel Movements 0 1 0 Objective Remarks GENERAL: Well-developed, well-nourished, in no acute distress. alert and orientated to person, month, place, current events HEENT: Head is normocephalic without any lesions or masses noted. Facial features are symmetric. Eyes: Extraocular muscles are intact. Conjunctivae were clear. NECK: Supple without any masses. Trachea midline no deviation. No JVD, CARDIAC: Regular rhythm, regular rate. S1/S2 are heard. No murmurs gallops or rubs. LUNGS: Clear to auscultation bilaterally. No wheeze, rhonchi or rales. No use of accessory muscles on inspiration or expiration. ABDOMEN: Soft, nontender. Nondistended. Bowel sounds heard in all 4 quadrants. No organomegaly or masses. Negative rebound, negative guarding EXTREMITIES: No edema, pulses are equal bilaterally. No cyanosis or clubbing NEUROLOGY: Mood and affect appear appropriate. Cranial nerves II through XII grossly intact. Moving all extremities, speech is clear Urinary Catheter: No Date of Insertion: Jul 01, 2016 Date of Removal: Jul 09, 2016 Vascular Central Line Catheter: No Date of Insertion: Jul 01, 2016 Date of Removal: Jul 06, 2016 A/P Assessment and Plan Deconditioning Continue physical therapy on a daily basis. Patient walking 110 feet with contact-guard assist Physical therapy indicates that patient may need use walker or cane upon discharge. Other prior setting which is homeless. Patient is walking 45 and 60 feet slowly with contact-guard Chest pain, atypical: Resolved Cardiac enzymes were performed which did not indicate any acute coronary event EKG shows atrial fibrillation with PVCs. No signs of any acute coronary event Nuclear stress test was performed which did not indicate any signs of reversible perfusion defect. However did indicate left ventricle dilation with global hypokinesis and ejection fraction 29%. Lipid panel performed which did show LDL 129, continue Lipitor 20 mg daily Encephalopathy: Significantly improved. 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 Patient is much more alert EEG does show moderate encephalopathy, CT scans of the brain did not show any acute abnormality Continue monitor mental status Speech therapy, cognitive evaluation within normal limits. Regular consisting diet Visual hallucinations, resolved likely secondary to alcohol detoxing Psychiatry evaluated patient Continue Seroquel 50 mg at bedtime Elevated liver enzymes Multifactorial with patient with alcohol use, PEA cardiac arrest Follow-up liver enzymes are normal S/P Hypoxic respiratory respiratory failure, COPD exacerbation-resolved Patient intubated 07/01/16, extubated 07/03/16 Bronchodilators every 2 hours as needed, patient has not required any in 2 weeks, will discontinue at this time Patient continued on prednisone 10 mg twice daily, will discontinue that at this time Pulmonology following the patient Bibasilar airspace disease noted on chest x-ray, resolved Sputum culture with MRSA, however nasal screen for MRSA was positive also. Could be secondary to colonization Patient on Bactrim till 07/21 Patient was started on Lasix with improvement Follow-up chest x-ray shows resolution Cardiomyopathy/NSTEMI/PEA arrest/Systolic congestive heart failure/Hypotension: Status post cardiopulmonary resuscitation with return of spontaneous pulse and breathing Echo 06/30: EF 2530%, aortic valve mild regurgitation, mitral valve mild to moderate regurgitation, tricuspid valve trace to mild regurgitation, systolic function severely diminished. Echo 07/02: EF 30-35% with diffuse hypokinesis and small pericardial effusion. Cardiology was following the patient and signed off on 07/09, indicated patient stable to discharge from cardiology standpoint. Follow-up out patient setting Unable to use beta ganesh, HERMINIO inhibitor, calcium channel ganesh, nitrate, due to low blood pressure. The patient significant cardiomyopathy systolic blood pressure 8090 is appropriate as long as map is staying above 65 Discuss with cardiology who indicated patient will require evaluation for AICD and 90 days post cardiac arrest. Patient will require outpatient follow-up Atrial fibrillation with RVR, heart rate controlled Unable to use calcium channel blockers, beta blockers, amiodarone for rate control or conversion due to low blood pressure secondary to cardiomyopathy Patient started on digoxin 0.125 mg daily, monitor digoxin level Patient has had recent echocardiogram on 07/02/16 Chads score is 2 Patient anticoagulated with Eliquis Hypocalcemia/Hyponatremia/Hypokalemia/Hypomagnesemia: Resolved. Monitor and replete as needed Thrombocytopenia: Improved. No signs of bleeding. Due to alcoholism Monitor CBC DVT Prophylaxis: On Eliquis Discharge Planning Case management for discharge planning. Awaiting PT clearance for discharge Evangelist Woods Jul 31, 2016 08:04 Miguel Ángel Bustamante MD Jul 31, 2016 16:45
[2016-07-31 08:26] VITALS: BP 104/73; PULSE 86; RESP 19; TEMP 97.1; O2SAT 97
[2016-07-31] MEDS: MULTIVITAMIN TAB PO SCH (09:37)
[2016-07-31] MEDS: DIGOXIN 0.125 MG TAB PO SCH (09:37)
[2016-07-31] MEDS: THIAMINE HCL 100 MG TAB PO SCH (09:37)
[2016-07-31] MEDS: ATORVASTATIN 20 MG TAB PO SCH (09:37)
[2016-07-31] MEDS: MAGNESIUM OXIDE 400 MG TAB PO SCH ×2 (09:38→21:36)
[2016-07-31] MEDS: APIXABAN 5 MG TABLET PO SCH ×2 (09:38→21:36)
--- NOTE | 2016-07-31 17:54 | HHI.PR ---
Subjective Remarks 45 YOWM with VDRF,s/p cardiac arrest X2 Good appetite No fever or chills Occ cough, no sputum Denies sob, palptation or CP Up on the side of bed Objective Vital Signs Vital Signs Date Time Temp Pulse Resp B/P Pulse Ox O2 Delivery O2 Flow Rate FiO2 07/31/16 08:26 97.1 86 19 104/73 97 07/30/16 20:00 99.2 73 18 104/71 97 I/O 07/30/16 07/30/16 07/30/16 07/31/16 07/31/16 07/31/16 06:59 14:59 22:59 06:59 14:59 22:59 Intake Total 480 ml 1980 ml 240 ml 0 ml 1250 ml Output Total 400 ml 1000 ml 400 ml Balance 80 ml 980 ml -160 ml 0 ml 1250 ml Intake Oral 480 ml 1980 ml 240 ml 1250 ml IV Total 0 ml 0 ml Output Urine Total 400 ml 1000 ml 400 ml # Bowel Movements 0 1 0 Objective Remarks GENERAL: WBWN male, on Vent SKIN: Warm and dry. HEAD: Normocephalic. EYES: No scleral icterus. No injection or drainage. NECK: Supple, trachea midline. No JVD or lymphadenopathy. CARDIOVASCULAR: Regular rate and rhythm without murmurs, gallops, or rubs. RESPIRATORY: Breath sounds equal bilaterally. No accessory muscle use. GASTROINTESTINAL: Abdomen soft, non-tender, nondistended. MUSCULOSKELETAL: No cyanosis, or edema. BACK: Nontender without obvious deformity. No CVA tenderness. A/P Assessment and Plan VDRF, s/p extubation 07/03 S/P cardiac arrest CHF AF COPD PLAN: Stable on RA Encourage PO intake PO Bactrim Stable from Pulm standpoint. I will sign off avaiable prn Tomer Whitlock MD Jul 31, 2016 17:54
[2016-07-31 20:00] VITALS: BP 115/84; PULSE 100; RESP 20; TEMP 97.7; O2SAT 98
[2016-07-31] MEDS: QUEtiapine FUMARATE 25 MG TAB PO SCH (21:37)
[2016-08-01 08:00] VITALS: BP 96/73; PULSE 82; RESP 18; TEMP 96.7; O2SAT 100
[2016-08-01] MEDS: ATORVASTATIN 20 MG TAB PO SCH (10:01)
[2016-08-01] MEDS: MULTIVITAMIN TAB PO SCH (10:02)
[2016-08-01] MEDS: THIAMINE HCL 100 MG TAB PO SCH (10:02)
[2016-08-01] MEDS: DIGOXIN 0.125 MG TAB PO SCH (10:02)
[2016-08-01] MEDS: APIXABAN 5 MG TABLET PO SCH ×2 (10:02→20:17)
[2016-08-01] MEDS: MAGNESIUM OXIDE 400 MG TAB PO SCH ×2 (10:02→20:17)
--- NOTE | 2016-08-01 11:51 | HHI.PR ---
Subjective Remarks Patient seen and examined today. Patient denies any new complaints. No change in clinical status. Objective Vitals Vital Signs Date Time Temp Pulse Resp B/P Pulse Ox O2 Delivery O2 Flow Rate FiO2 08/01/16 08:00 96.7 82 18 96/73 100 07/31/16 20:00 97.7 100 20 115/84 98 I/O 07/31/16 07/31/16 07/31/16 08/01/16 08/01/16 08/01/16 07:00 15:00 23:00 07:00 15:00 23:00 Intake Total 240 ml 0 ml 1710 ml 360 ml Output Total 400 ml 700 ml Balance -160 ml 0 ml 1710 ml -340 ml Intake Oral 240 ml 1610 ml 360 ml Oral Supplement 100 ml IV Total 0 ml 0 ml Output Urine Total 400 ml 700 ml # Voids 2 # Bowel Movements 0 Objective Remarks GENERAL: Well-developed, well-nourished, in no acute distress. alert and orientated to person, month, place, current events HEENT: Head is normocephalic without any lesions or masses noted. Facial features are symmetric. Eyes: Extraocular muscles are intact. Conjunctivae were clear. NECK: Supple without any masses. Trachea midline no deviation. No JVD, CARDIAC: Regular rhythm, regular rate. S1/S2 are heard. No murmurs gallops or rubs. LUNGS: Clear to auscultation bilaterally. No wheeze, rhonchi or rales. No use of accessory muscles on inspiration or expiration. ABDOMEN: Soft, nontender. Nondistended. Bowel sounds heard in all 4 quadrants. No organomegaly or masses. Negative rebound, negative guarding EXTREMITIES: No edema, pulses are equal bilaterally. No cyanosis or clubbing NEUROLOGY: Mood and affect appear appropriate. Cranial nerves II through XII grossly intact. Moving all extremities, speech is clear Urinary Catheter: No Date of Insertion: Jul 01, 2016 Date of Removal: Jul 09, 2016 Vascular Central Line Catheter: No Date of Insertion: Jul 01, 2016 Date of Removal: Jul 06, 2016 A/P Assessment and Plan Deconditioning Continue physical therapy on a daily basis. Patient walking 110 feet with contact-guard assist Physical therapy indicates that patient may need use walker or cane upon discharge. Other prior setting which is homeless. Patient is walking 45 and 60 feet slowly with contact-guard Chest pain, atypical: Resolved Cardiac enzymes were performed which did not indicate any acute coronary event EKG shows atrial fibrillation with PVCs. No signs of any acute coronary event Nuclear stress test was performed which did not indicate any signs of reversible perfusion defect. However did indicate left ventricle dilation with global hypokinesis and ejection fraction 29%. Lipid panel performed which did show LDL 129, continue Lipitor 20 mg daily Encephalopathy: Significantly improved. 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 Patient is much more alert EEG does show moderate encephalopathy, CT scans of the brain did not show any acute abnormality Continue monitor mental status Speech therapy, cognitive evaluation within normal limits. Regular consisting diet Visual hallucinations, resolved likely secondary to alcohol detoxing Psychiatry evaluated patient Continue Seroquel 50 mg at bedtime Elevated liver enzymes Multifactorial with patient with alcohol use, PEA cardiac arrest Follow-up liver enzymes are normal S/P Hypoxic respiratory respiratory failure, COPD exacerbation-resolved Patient intubated 07/01/16, extubated 07/03/16 Bronchodilators every 2 hours as needed, patient has not required any in 2 weeks, will discontinue at this time Patient continued on prednisone 10 mg twice daily, will discontinue that at this time Pulmonology following the patient Bibasilar airspace disease noted on chest x-ray, resolved Sputum culture with MRSA, however nasal screen for MRSA was positive also. Could be secondary to colonization Patient on Bactrim till 07/21 Patient was started on Lasix with improvement Follow-up chest x-ray shows resolution Cardiomyopathy/NSTEMI/PEA arrest/Systolic congestive heart failure/Hypotension: Status post cardiopulmonary resuscitation with return of spontaneous pulse and breathing Echo 06/30: EF 2530%, aortic valve mild regurgitation, mitral valve mild to moderate regurgitation, tricuspid valve trace to mild regurgitation, systolic function severely diminished. Echo 07/02: EF 30-35% with diffuse hypokinesis and small pericardial effusion. Cardiology was following the patient and signed off on 07/09, indicated patient stable to discharge from cardiology standpoint. Follow-up out patient setting Unable to use beta ganesh, HERMINIO inhibitor, calcium channel ganesh, nitrate, due to low blood pressure. The patient significant cardiomyopathy systolic blood pressure 8090 is appropriate as long as map is staying above 65 Discuss with cardiology who indicated patient will require evaluation for AICD and 90 days post cardiac arrest. Patient will require outpatient follow-up Atrial fibrillation with RVR, heart rate controlled Unable to use calcium channel blockers, beta blockers, amiodarone for rate control or conversion due to low blood pressure secondary to cardiomyopathy Patient started on digoxin 0.125 mg daily, monitor digoxin level Patient has had recent echocardiogram on 07/02/16 Chads score is 2 Patient anticoagulated with Eliquis Hypocalcemia/Hyponatremia/Hypokalemia/Hypomagnesemia: Resolved. Monitor and replete as needed Thrombocytopenia: Improved. No signs of bleeding. Due to alcoholism Monitor CBC DVT Prophylaxis: On Eliquis Discharge Planning Case management for discharge planning. Awaiting PT clearance for discharge Evangelist Woods Aug 01, 2016 11:51 Miguel Ángel Bustamante MD Aug 01, 2016 14:07
[2016-08-01 20:00] VITALS: BP 110/89; PULSE 94; RESP 18; TEMP 98.4; O2SAT 98
[2016-08-01] MEDS: QUEtiapine FUMARATE 25 MG TAB PO SCH (20:17)
[2016-08-02 08:00] VITALS: BP 97/80; PULSE 93; RESP 18; TEMP 97.1; O2SAT 100
[2016-08-02] MEDS: THIAMINE HCL 100 MG TAB PO SCH (09:28)
[2016-08-02] MEDS: ATORVASTATIN 20 MG TAB PO SCH (09:28)
[2016-08-02] MEDS: MAGNESIUM OXIDE 400 MG TAB PO SCH ×2 (09:28→20:22)
[2016-08-02] MEDS: APIXABAN 5 MG TABLET PO SCH ×2 (09:28→20:22)
[2016-08-02] MEDS: DIGOXIN 0.125 MG TAB PO SCH (09:28)
[2016-08-02] MEDS: MULTIVITAMIN TAB PO SCH (09:28)
[2016-08-02 09:30] VITALS: BP 100/70
--- NOTE | 2016-08-02 11:47 | HHI.PR ---
Subjective Remarks Patient seen and examined today. Patient denies any new complaints. No change in clinical status. Objective Vitals Vital Signs Date Time Temp Pulse Resp B/P Pulse Ox O2 Delivery O2 Flow Rate FiO2 08/02/16 09:30 100/70 08/02/16 08:00 97.1 93 18 97/80 100 08/01/16 20:00 98.4 94 18 110/89 98 I/O 08/01/16 08/01/16 08/01/16 08/02/16 08/02/16 08/02/16 07:00 15:00 23:00 07:00 15:00 23:00 Intake Total 360 ml 680 ml 480 ml 220 ml 0 ml Output Total 700 ml Balance -340 ml 680 ml 480 ml 220 ml 0 ml Intake Oral 360 ml 680 ml 480 ml 220 ml IV Total 0 ml 0 ml 0 ml Output Urine Total 700 ml # Voids 3 3 2 # Bowel Movements 1 0 0 Objective Remarks GENERAL: Well-developed, well-nourished, in no acute distress. alert and orientated to person, month, place, current events HEENT: Head is normocephalic without any lesions or masses noted. Facial features are symmetric. Eyes: Extraocular muscles are intact. Conjunctivae were clear. NECK: Supple without any masses. Trachea midline no deviation. No JVD, CARDIAC: Regular rhythm, regular rate. S1/S2 are heard. No murmurs gallops or rubs. LUNGS: Clear to auscultation bilaterally. No wheeze, rhonchi or rales. No use of accessory muscles on inspiration or expiration. ABDOMEN: Soft, nontender. Nondistended. Bowel sounds heard in all 4 quadrants. No organomegaly or masses. Negative rebound, negative guarding EXTREMITIES: No edema, pulses are equal bilaterally. No cyanosis or clubbing NEUROLOGY: Mood and affect appear appropriate. Cranial nerves II through XII grossly intact. Moving all extremities, speech is clear Urinary Catheter: No Date of Insertion: Jul 01, 2016 Date of Removal: Jul 09, 2016 Vascular Central Line Catheter: No Date of Insertion: Jul 01, 2016 Date of Removal: Jul 06, 2016 A/P Assessment and Plan Deconditioning Continue physical therapy on a daily basis. Patient walking 110 feet with contact-guard assist Physical therapy indicates that patient may need use walker or cane upon discharge. Other prior setting which is homeless. Patient is walking 101 120 feet slowly with standby assist Chest pain, atypical: Resolved Cardiac enzymes were performed which did not indicate any acute coronary event EKG shows atrial fibrillation with PVCs. No signs of any acute coronary event Nuclear stress test was performed which did not indicate any signs of reversible perfusion defect. However did indicate left ventricle dilation with global hypokinesis and ejection fraction 29%. Lipid panel performed which did show LDL 129, continue Lipitor 20 mg daily Encephalopathy: Significantly improved. 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 Patient is much more alert EEG does show moderate encephalopathy, CT scans of the brain did not show any acute abnormality Continue monitor mental status Speech therapy, cognitive evaluation within normal limits. Regular consisting diet Visual hallucinations, resolved likely secondary to alcohol detoxing Psychiatry evaluated patient Continue Seroquel 50 mg at bedtime Elevated liver enzymes Multifactorial with patient with alcohol use, PEA cardiac arrest Follow-up liver enzymes are normal S/P Hypoxic respiratory respiratory failure, COPD exacerbation-resolved Patient intubated 07/01/16, extubated 07/03/16 Bronchodilators every 2 hours as needed, patient has not required any in 2 weeks, will discontinue at this time Patient continued on prednisone 10 mg twice daily, will discontinue that at this time Pulmonology following the patient Bibasilar airspace disease noted on chest x-ray, resolved Sputum culture with MRSA, however nasal screen for MRSA was positive also. Could be secondary to colonization Patient on Bactrim till 07/21 Patient was started on Lasix with improvement Follow-up chest x-ray shows resolution Cardiomyopathy/NSTEMI/PEA arrest/Systolic congestive heart failure/Hypotension: Status post cardiopulmonary resuscitation with return of spontaneous pulse and breathing Echo 06/30: EF 2530%, aortic valve mild regurgitation, mitral valve mild to moderate regurgitation, tricuspid valve trace to mild regurgitation, systolic function severely diminished. Echo 07/02: EF 30-35% with diffuse hypokinesis and small pericardial effusion. Cardiology was following the patient and signed off on 07/09, indicated patient stable to discharge from cardiology standpoint. Follow-up out patient setting Unable to use beta ganesh, HERMINIO inhibitor, calcium channel ganesh, nitrate, due to low blood pressure. The patient significant cardiomyopathy systolic blood pressure 8090 is appropriate as long as map is staying above 65 Discuss with cardiology who indicated patient will require evaluation for AICD and 90 days post cardiac arrest. Patient will require outpatient follow-up Atrial fibrillation with RVR, heart rate controlled Unable to use calcium channel blockers, beta blockers, amiodarone for rate control or conversion due to low blood pressure secondary to cardiomyopathy Patient started on digoxin 0.125 mg daily, monitor digoxin level Patient has had recent echocardiogram on 07/02/16 Chads score is 2 Patient anticoagulated with Eliquis Hypocalcemia/Hyponatremia/Hypokalemia/Hypomagnesemia: Resolved. Monitor and replete as needed Thrombocytopenia: Improved. No signs of bleeding. Due to alcoholism Monitor CBC DVT Prophylaxis: On Eliquis Discharge Planning Case management for discharge planning. Awaiting PT clearance for discharge Evangelist Woods Aug 02, 2016 11:47 Miguel Ángel Bustamante MD Aug 02, 2016 16:07
[2016-08-02 20:00] VITALS: BP 111/85; PULSE 95; RESP 20; TEMP 97.1; O2SAT 98
[2016-08-02] MEDS: QUEtiapine FUMARATE 25 MG TAB PO SCH (20:21)
[2016-08-03 08:00] VITALS: BP 110/85; PULSE 93; RESP 16; TEMP 96.8; O2SAT 97
[2016-08-03] MEDS: MAGNESIUM OXIDE 400 MG TAB PO SCH ×2 (10:13→21:31)
[2016-08-03] MEDS: THIAMINE HCL 100 MG TAB PO SCH (10:13)
[2016-08-03] MEDS: DIGOXIN 0.125 MG TAB PO SCH (10:13)
[2016-08-03] MEDS: APIXABAN 5 MG TABLET PO SCH ×2 (10:14→21:31)
[2016-08-03] MEDS: ATORVASTATIN 20 MG TAB PO SCH (10:14)
[2016-08-03] MEDS: MULTIVITAMIN TAB PO SCH (10:14)
--- NOTE | 2016-08-03 10:36 | HHI.PR ---
Subjective Remarks Patient seen and examined today for follow-up on PEA cardiac arrest, generalized weakness, cardiomyopathy. Patient indicates that he is feeling better. He is eating well. Bowel movements are normal. States that he is doing his exercises in bed and feels that he is getting stronger. Objective Vitals Vital Signs Date Time Temp Pulse Resp B/P Pulse Ox O2 Delivery O2 Flow Rate FiO2 08/02/16 20:00 97.1 95 20 111/85 98 Manual Cuff/Auscultation I/O 08/02/16 08/02/16 08/02/16 08/03/16 08/03/16 08/03/16 07:00 15:00 23:00 07:00 15:00 23:00 Intake Total 220 ml 480 ml 240 ml 240 ml Output Total 650 ml Balance 220 ml -170 ml 240 ml 240 ml Intake Oral 220 ml 480 ml 240 ml 240 ml IV Total 0 ml 0 ml Output Urine Total 650 ml # Voids 2 1 1 2 # Bowel Movements 0 0 0 0 Objective Remarks GENERAL: Well-developed, well-nourished, in no acute distress. alert and orientated to person, month, place, current events HEENT: Head is normocephalic without any lesions or masses noted. Facial features are symmetric. Eyes: Extraocular muscles are intact. Conjunctivae were clear. NECK: Supple without any masses. Trachea midline no deviation. No JVD, CARDIAC: Regular rhythm, regular rate. S1/S2 are heard. No murmurs gallops or rubs. LUNGS: Clear to auscultation bilaterally. No wheeze, rhonchi or rales. No use of accessory muscles on inspiration or expiration. ABDOMEN: Soft, nontender. Nondistended. Bowel sounds heard in all 4 quadrants. No organomegaly or masses. Negative rebound, negative guarding EXTREMITIES: No edema, pulses are equal bilaterally. No cyanosis or clubbing NEUROLOGY: Mood and affect appear appropriate. Cranial nerves II through XII grossly intact. Moving all extremities, speech is clear Urinary Catheter: No Date of Insertion: Jul 01, 2016 Date of Removal: Jul 09, 2016 Vascular Central Line Catheter: No Date of Insertion: Jul 01, 2016 Date of Removal: Jul 06, 2016 A/P Assessment and Plan Deconditioning Continue physical therapy on a daily basis. Patient walking 110 feet with contact-guard assist Physical therapy indicates that patient may need use walker or cane upon discharge. Other prior setting which is homeless. Patient is walking 100 and 120 feet slowly with standby assist Chest pain, atypical: Resolved Cardiac enzymes were performed which did not indicate any acute coronary event EKG shows atrial fibrillation with PVCs. No signs of any acute coronary event Nuclear stress test was performed which did not indicate any signs of reversible perfusion defect. However did indicate left ventricle dilation with global hypokinesis and ejection fraction 29%. Lipid panel performed which did show LDL 129, continue Lipitor 20 mg daily Encephalopathy: Significantly improved. 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 Patient is much more alert EEG does show moderate encephalopathy, CT scans of the brain did not show any acute abnormality Continue monitor mental status Speech therapy, cognitive evaluation within normal limits. Regular consisting diet Visual hallucinations, resolved likely secondary to alcohol detoxing Psychiatry evaluated patient Continue Seroquel 50 mg at bedtime Elevated liver enzymes Multifactorial with patient with alcohol use, PEA cardiac arrest Follow-up liver enzymes are normal S/P Hypoxic respiratory respiratory failure, COPD exacerbation-resolved Patient intubated 07/01/16, extubated 07/03/16 Bronchodilators every 2 hours as needed, patient has not required any in 2 weeks, will discontinue at this time Patient continued on prednisone 10 mg twice daily, will discontinue that at this time Pulmonology following the patient Bibasilar airspace disease noted on chest x-ray, resolved Sputum culture with MRSA, however nasal screen for MRSA was positive also. Could be secondary to colonization Patient on Bactrim till 07/21 Patient was started on Lasix with improvement Follow-up chest x-ray shows resolution Cardiomyopathy/NSTEMI/PEA arrest/Systolic congestive heart failure/Hypotension: Status post cardiopulmonary resuscitation with return of spontaneous pulse and breathing Echo 06/30: EF 2530%, aortic valve mild regurgitation, mitral valve mild to moderate regurgitation, tricuspid valve trace to mild regurgitation, systolic function severely diminished. Echo 07/02: EF 30-35% with diffuse hypokinesis and small pericardial effusion. Cardiology was following the patient and signed off on 07/09, indicated patient stable to discharge from cardiology standpoint. Follow-up out patient setting Unable to use beta ganesh, HERMINIO inhibitor, calcium channel ganesh, nitrate, due to low blood pressure. The patient significant cardiomyopathy systolic blood pressure 8090 is appropriate as long as map is staying above 65 Discuss with cardiology who indicated patient will require evaluation for AICD and 90 days post cardiac arrest. Patient will require outpatient follow-up Atrial fibrillation with RVR, heart rate controlled Unable to use calcium channel blockers, beta blockers, amiodarone for rate control or conversion due to low blood pressure secondary to cardiomyopathy Patient started on digoxin 0.125 mg daily, monitor digoxin level Patient has had recent echocardiogram on 07/02/16 Chads score is 2 Patient anticoagulated with Eliquis Hypocalcemia/Hyponatremia/Hypokalemia/Hypomagnesemia: Resolved. Monitor and replete as needed Thrombocytopenia: Improved. No signs of bleeding. Due to alcoholism Monitor CBC DVT Prophylaxis: On Eliquis Discharge Planning Case management for discharge planning. Awaiting PT clearance for discharge Evangelist Woods Aug 03, 2016 10:36
[2016-08-03 20:00] VITALS: BP 110/81; PULSE 105; RESP 20; TEMP 97.2; O2SAT 99
[2016-08-03] MEDS: QUEtiapine FUMARATE 25 MG TAB PO SCH (21:31)
[2016-08-04 08:00] VITALS: BP 107/74; PULSE 61; RESP 18; TEMP 96.5; O2SAT 96
[2016-08-04] MEDS: MULTIVITAMIN TAB PO SCH (09:56)
[2016-08-04] MEDS: APIXABAN 5 MG TABLET PO SCH ×2 (09:56→20:23)
[2016-08-04] MEDS: MAGNESIUM OXIDE 400 MG TAB PO SCH ×2 (09:56→20:23)
[2016-08-04] MEDS: THIAMINE HCL 100 MG TAB PO SCH (09:56)
[2016-08-04] MEDS: ATORVASTATIN 20 MG TAB PO SCH (09:56)
[2016-08-04] MEDS: DIGOXIN 0.125 MG TAB PO SCH (09:56)
--- NOTE | 2016-08-04 15:20 | HHI.PR ---
Subjective Remarks Follow-up for A.Fib, heart failure, s/p PEA cardiac arrest. The patient admits again to some pleuritic pain on the left which he has had in the past but he denies any worsening cough or increased mucus production. Denies any shortness of breath. Denies any fevers or chills. Objective Vitals Vital Signs Date Time Temp Pulse Resp B/P Pulse Ox O2 Delivery O2 Flow Rate FiO2 08/04/16 08:00 96.5 61 18 107/74 96 08/03/16 20:00 97.2 105 20 110/81 99 I/O 08/03/16 08/03/16 08/03/16 08/04/16 08/04/16 08/04/16 07:00 15:00 23:00 07:00 15:00 23:00 Intake Total 240 ml 960 ml 370 ml Output Total 375 ml Balance 240 ml 960 ml -5 ml Intake Oral 240 ml 960 ml 370 ml Output Urine Total 375 ml # Voids 2 3 # Bowel Movements 0 0 0 Objective Remarks GENERAL: Pleasant well-developed patient in no apparent distress. SKIN: Warm and dry. CARDIOVASCULAR: Normal rate, irregularly irregular rhythm. RESPIRATORY: No accessory muscle use. Clear to auscultation. Breath sounds equal bilaterally. GASTROINTESTINAL: Abdomen soft, non-tender, nondistended. NEUROLOGICAL: Awake and alert. Normal speech. PSYCHIATRIC: Appropriate mood and affect. Urinary Catheter: No Date of Insertion: Jul 01, 2016 Date of Removal: Jul 09, 2016 Vascular Central Line Catheter: No Date of Insertion: Jul 01, 2016 Date of Removal: Jul 06, 2016 A/P Problem List: (1) Atrial fibrillation with RVR ICD Code: I48.91 Status: Acute (2) PNA (pneumonia) ICD Code: J18.9 Status: Acute (3) COPD exacerbation ICD Code: J44.1 Status: Acute (4) Elevated troponin ICD Code: R74.8 Status: Acute Assessment and Plan Deconditioning Continue physical therapy on a daily basis. Physical therapy indicates that patient may need use walker or cane upon discharge. Other prior setting which is homeless. Patient walking 120 feet slowly with stand-by assist Chest pain, atypical: Resolved Cardiac enzymes were performed which did not indicate any acute coronary event EKG shows atrial fibrillation with PVCs. No signs of any acute coronary event Nuclear stress test was performed which did not indicate any signs of reversible perfusion defect. However did indicate left ventricle dilation with global hypokinesis and ejection fraction 29%. Lipid panel performed which did show LDL 129, continue Lipitor 20 mg daily 08/04: Patient again has some left-sided pleuritic pain today, but lung exam is normal, and patient is afebrile with good oxygen saturation. He is on Eliquis so is less likely to develop PE. Will monitor clinically. No chest x-ray needed at this time. Cardiomyopathy/NSTEMI/PEA arrest/Systolic congestive heart failure/Hypotension: Status post cardiopulmonary resuscitation with return of spontaneous pulse and breathing Echo 06/30: EF 2530%, aortic valve mild regurgitation, mitral valve mild to moderate regurgitation, tricuspid valve trace to mild regurgitation, systolic function severely diminished. Echo 07/02: EF 30-35% with diffuse hypokinesis and small pericardial effusion. Cardiology was following the patient and signed off on 07/09, indicated patient stable to discharge from cardiology standpoint. Follow-up out patient setting Unable to use beta ganesh, HERMINIO inhibitor, calcium channel ganesh, nitrate, due to low blood pressure. The patient significant cardiomyopathy systolic blood pressure 8090 is appropriate as long as map is staying above 65 Discussed with cardiology who indicated patient will require evaluation for AICD and 90 days post cardiac arrest. Patient will require outpatient follow- up Atrial fibrillation with RVR, heart rate controlled Unable to use calcium channel blockers, beta blockers, amiodarone for rate control or conversion due to low blood pressure secondary to cardiomyopathy Continue digoxin 0.125 mg daily, monitor digoxin level Patient has had recent echocardiogram on 07/02/16 Chads score is 2 Patient anticoagulated with Eliquis S/P Hypoxic respiratory respiratory failure, COPD exacerbation-resolved Patient intubated 07/01/16, extubated 07/03/16 Bronchodilators every 2 hours as needed, patient has not required any in 2 weeks, will discontinue at this time Patient continued on prednisone 10 mg twice daily, will discontinue that at this time Pulmonology following the patient Bibasilar airspace disease noted on chest x-ray, resolved Sputum culture with MRSA, however nasal screen for MRSA was positive also. Could be secondary to colonization Patientc was on Bactrim till 07/21 Patient was started on Lasix with improvement Follow-up chest x-ray shows resolution Encephalopathy: Significantly improved. 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 Patient is much more alert EEG does show moderate encephalopathy, CT scans of the brain did not show any acute abnormality Continue monitor mental status Speech therapy, cognitive evaluation within normal limits. Regular consisting diet Visual hallucinations, resolved likely secondary to alcohol detoxing Psychiatry evaluated patient Continue Seroquel 50 mg at bedtime Elevated liver enzymes: Improved. Multifactorial with patient with alcohol use, PEA cardiac arrest Follow-up liver enzymes are normal Hypocalcemia/Hyponatremia/Hypokalemia/Hypomagnesemia: Resolved. Monitor and replete as needed Thrombocytopenia: Improved. No signs of bleeding. Due to alcoholism Monitor CBC DVT Prophylaxis: On Eliquis Discharge Planning SSI initiated. PT following. Needs walker or cane upon discharge. Problem Qualifiers (1) PNA (pneumonia): Qualified Code: J18.1 - Pneumonia of right lower lobe due to infectious organism Erika Mora Aug 04, 2016 15:20
[2016-08-04 20:00] VITALS: BP 111/77; PULSE 95; RESP 19; TEMP 97.2; O2SAT 100
[2016-08-04] MEDS: QUEtiapine FUMARATE 25 MG TAB PO SCH (20:23)
[2016-08-05 08:00] VITALS: BP 105/73; PULSE 90; RESP 18; TEMP 96.2; O2SAT 96
[2016-08-05] MEDS: MAGNESIUM OXIDE 400 MG TAB PO SCH ×2 (09:02→20:57)
[2016-08-05] MEDS: ATORVASTATIN 20 MG TAB PO SCH (09:02)
[2016-08-05] MEDS: DIGOXIN 0.125 MG TAB PO SCH (09:02)
[2016-08-05] MEDS: APIXABAN 5 MG TABLET PO SCH ×2 (09:02→20:58)
[2016-08-05] MEDS: THIAMINE HCL 100 MG TAB PO SCH (09:02)
[2016-08-05] MEDS: MULTIVITAMIN TAB PO SCH (09:02)
--- NOTE | 2016-08-05 10:34 | HHI.PR ---
Subjective Remarks Follow-up for A.Fib, heart failure, s/p PEA cardiac arrest. The patient admitted again to pleuritic pain yesterday, but he tells me today that it is a "dull ache" rather than sharp pain with breathing over the left upper chest and it sometimes moves to the right and is on and off. Objective Vitals Vital Signs Date Time Temp Pulse Resp B/P Pulse Ox O2 Delivery O2 Flow Rate FiO2 08/05/16 08:00 96.2 90 18 105/73 96 08/04/16 20:00 97.2 95 19 111/77 100 I/O 08/04/16 08/04/16 08/04/16 08/05/16 08/05/16 08/05/16 07:00 15:00 23:00 07:00 15:00 23:00 Intake Total 370 ml 200 ml 840 ml 480 ml Output Total 375 ml 550 ml 500 ml 200 ml Balance -5 ml -350 ml 340 ml 280 ml Intake Oral 370 ml 200 ml 840 ml 480 ml Output Urine Total 375 ml 550 ml 500 ml 200 ml # Bowel Movements 0 Objective Remarks GENERAL: Pleasant well-developed patient in no apparent distress. SKIN: Warm and dry. CHEST: No reproducible chest wall tenderness. CARDIOVASCULAR: Normal rate, irregularly irregular rhythm. RESPIRATORY: No accessory muscle use. Clear to auscultation. Breath sounds equal bilaterally. GASTROINTESTINAL: Abdomen soft, non-tender, nondistended. MUSCULOSKELETAL: No lower extremity edema bilaterally. NEUROLOGICAL: Awake and alert. Normal speech. PSYCHIATRIC: Appropriate mood and affect. Urinary Catheter: No Date of Insertion: Jul 01, 2016 Date of Removal: Jul 09, 2016 Vascular Central Line Catheter: No Date of Insertion: Jul 01, 2016 Date of Removal: Jul 06, 2016 A/P Problem List: (1) Atrial fibrillation with RVR ICD Code: I48.91 Status: Acute (2) PNA (pneumonia) ICD Code: J18.9 Status: Acute (3) COPD exacerbation ICD Code: J44.1 Status: Acute (4) Elevated troponin ICD Code: R74.8 Status: Acute Assessment and Plan Deconditioning Continue physical therapy on a daily basis. Physical therapy indicates that patient may need use walker or cane upon discharge. Other prior setting which is homeless. Patient walking 120 feet slowly with stand-by assist Chest pain, atypical: Resolved Cardiac enzymes were performed which did not indicate any acute coronary event EKG shows atrial fibrillation with PVCs. No signs of any acute coronary event Nuclear stress test was performed which did not indicate any signs of reversible perfusion defect. However did indicate left ventricle dilation with global hypokinesis and ejection fraction 29%. Lipid panel performed which did show LDL 129, continue Lipitor 20 mg daily 08/05: Patient now describes L upper pleuritic pain as a "dull ache" and is intermittent. I do not believe the patient has any acute cardiac or pulmonary issue. Cardiac workup was performed recently. Lung exam is benign. He is afebrile with good oxygen saturation. He is on Eliquis so is less likely to develop PE and he has no sob at rest. No chest x-ray needed at this time. Will monitor clinically. Cardiomyopathy/NSTEMI/PEA arrest/Systolic congestive heart failure/Hypotension: Status post cardiopulmonary resuscitation with return of spontaneous pulse and breathing Echo 06/30: EF 2530%, aortic valve mild regurgitation, mitral valve mild to moderate regurgitation, tricuspid valve trace to mild regurgitation, systolic function severely diminished. Echo 07/02: EF 30-35% with diffuse hypokinesis and small pericardial effusion. Cardiology was following the patient and signed off on 07/09, indicated patient stable to discharge from cardiology standpoint. Follow-up out patient setting Unable to use beta ganesh, HERMINIO inhibitor, calcium channel ganesh, nitrate, due to low blood pressure. The patient significant cardiomyopathy systolic blood pressure 8090 is appropriate as long as map is staying above 65 Discussed with cardiology who indicated patient will require evaluation for AICD and 90 days post cardiac arrest. Patient will require outpatient follow- up Atrial fibrillation with RVR, heart rate controlled Unable to use calcium channel blockers, beta blockers, amiodarone for rate control or conversion due to low blood pressure secondary to cardiomyopathy Continue digoxin 0.125 mg daily, monitor digoxin level Patient has had recent echocardiogram on 07/02/16 Chads score is 2 Patient anticoagulated with Eliquis S/P Hypoxic respiratory respiratory failure, COPD exacerbation-resolved Patient intubated 07/01/16, extubated 07/03/16 Bronchodilators every 2 hours as needed, patient has not required any in 2 weeks, will discontinue at this time Patient continued on prednisone 10 mg twice daily, will discontinue that at this time Pulmonology following the patient Bibasilar airspace disease noted on chest x-ray, resolved Sputum culture with MRSA, however nasal screen for MRSA was positive also. Could be secondary to colonization Patientc was on Bactrim till 07/21 Patient was started on Lasix with improvement Follow-up chest x-ray shows resolution Encephalopathy: Significantly improved. 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 Patient is much more alert EEG does show moderate encephalopathy, CT scans of the brain did not show any acute abnormality Continue monitor mental status Speech therapy, cognitive evaluation within normal limits. Regular consisting diet Visual hallucinations, resolved likely secondary to alcohol detoxing Psychiatry evaluated patient Continue Seroquel 50 mg at bedtime Elevated liver enzymes: Improved. Multifactorial with patient with alcohol use, PEA cardiac arrest Follow-up liver enzymes are normal Hypocalcemia/Hyponatremia/Hypokalemia/Hypomagnesemia: Resolved. Monitor and replete as needed Thrombocytopenia: Improved. No signs of bleeding. Due to alcoholism Monitor CBC DVT Prophylaxis: On Eliquis Discharge Planning SSI initiated. PT following. Needs walker or cane upon discharge. Problem Qualifiers (1) PNA (pneumonia): Qualified Code: J18.1 - Pneumonia of right lower lobe due to infectious organism Erika Mora Aug 05, 2016 10:34
[2016-08-05 20:00] VITALS: BP 110/70; PULSE 90; RESP 21; TEMP 97.4; O2SAT 100
[2016-08-05] MEDS: QUEtiapine FUMARATE 25 MG TAB PO SCH (20:57)
[2016-08-06 08:00] VITALS: BP 106/71; PULSE 77; RESP 18; TEMP 96.6; O2SAT 99
[2016-08-06] MEDS: THIAMINE HCL 100 MG TAB PO SCH (09:00)
[2016-08-06 10:31] LABS: POTASSIUM 3.8 MEQ/L (3.5-5.1)
[2016-08-06 10:34] LABS: BICARBONATE 28.4 MEQ/L (21.0-32.0)
--- NOTE | 2016-08-06 11:11 | HHI.PR ---
Subjective Remarks Follow-up for A.Fib, heart failure, s/p PEA cardiac arrest. The patient complains again of ache over the left upper chest, states it feels like a weak muscle. Initially he indicated it was only with breathing but he then experienced discomfort when he moved slightly today. It does not occur all the time when he breathes deeply. Pain only lasts seconds; non-exertional. He states it is different from the chest pain he was experiencing prior when we performed cardiac workup. He states he does experience pain in his back over the left scapula at times as well. Objective Vitals Vital Signs Date Time Temp Pulse Resp B/P Pulse Ox O2 Delivery O2 Flow Rate FiO2 08/06/16 08:00 96.6 77 18 106/71 99 08/05/16 20:00 97.4 90 21 110/70 100 I/O 08/05/16 08/05/16 08/05/16 08/06/16 08/06/16 08/06/16 07:00 15:00 23:00 07:00 15:00 23:00 Intake Total 480 ml 600 ml 240 ml 120 ml Output Total 200 ml 250 ml 200 ml 200 ml Balance 280 ml 350 ml 40 ml -80 ml Intake Oral 480 ml 600 ml 240 ml 120 ml Output Urine Total 200 ml 250 ml 200 ml 200 ml # Voids 2 # Bowel Movements 0 Result Diagram: 08/06/16 1015 Objective Remarks GENERAL: Pleasant well-developed patient in no apparent distress. SKIN: Warm and dry. CARDIOVASCULAR: Normal rate, irregularly irregular rhythm. RESPIRATORY: No accessory muscle use. Clear to auscultation. Breath sounds equal bilaterally. GASTROINTESTINAL: Abdomen soft, non-tender, nondistended. Negative Brown's sign. BACK: Reproducible tenderness over muscles of the left lower scapula. NEUROLOGICAL: Awake and alert. Normal speech. PSYCHIATRIC: Appropriate mood and affect. Urinary Catheter: No Date of Insertion: Jul 01, 2016 Date of Removal: Jul 09, 2016 Vascular Central Line Catheter: No Date of Insertion: Jul 01, 2016 Date of Removal: Jul 06, 2016 A/P Problem List: (1) Atrial fibrillation with RVR ICD Code: I48.91 Status: Acute (2) PNA (pneumonia) ICD Code: J18.9 Status: Acute (3) COPD exacerbation ICD Code: J44.1 Status: Acute (4) Elevated troponin ICD Code: R74.8 Status: Acute Assessment and Plan Deconditioning Continue physical therapy on a daily basis. Walking 120 feet with FWW SBA and 20 feet unaided. Physical therapy indicates that patient may need use walker or cane upon discharge and return to prior setting which is homeless. Chest pain, atypical: Resolved Cardiac enzymes were performed which did not indicate any acute coronary event EKG shows atrial fibrillation with PVCs. No signs of any acute coronary event Nuclear stress test was performed which did not indicate any signs of reversible perfusion defect. However did indicate left ventricle dilation with global hypokinesis and ejection fraction 29%. Lipid panel performed which did show LDL 129, continue Lipitor 20 mg daily 08/06: Patient now states dull L chest discomfort does not always occur with deep breathing; it's intermittent and lasts only seconds. He does have some muscular tenderness over the L scapula which could be contributing to chest discomfort; states chest discomfort feels like a "weak muscle". I do not believe the patient has any acute cardiac or pulmonary issue. Cardiac workup was performed recently and pain is atypical. Lung exam is benign. He is afebrile with good oxygen saturation. He is on Eliquis so is less likely to develop PE and he has no sob at rest. No chest x-ray needed at this time. Will monitor clinically. BMP with normal electrolytes. Mg level ordered. Cardiomyopathy/NSTEMI/PEA arrest/Systolic congestive heart failure/Hypotension: Status post cardiopulmonary resuscitation with return of spontaneous pulse and breathing Echo 06/30: EF 2530%, aortic valve mild regurgitation, mitral valve mild to moderate regurgitation, tricuspid valve trace to mild regurgitation, systolic function severely diminished. Echo 07/02: EF 30-35% with diffuse hypokinesis and small pericardial effusion. Cardiology was following the patient and signed off on 07/09, indicated patient stable to discharge from cardiology standpoint. Follow-up out patient setting Unable to use beta ganesh, HERMINIO inhibitor, calcium channel ganesh, nitrate, due to low blood pressure. The patient significant cardiomyopathy systolic blood pressure 8090 is appropriate as long as map is staying above 65 Discussed with cardiology who indicated patient will require evaluation for AICD at 90 days post cardiac arrest. Patient will require outpatient follow-up Atrial fibrillation with RVR, heart rate controlled Unable to use calcium channel blockers, beta blockers, amiodarone for rate control or conversion due to low blood pressure secondary to cardiomyopathy Continue digoxin 0.125 mg daily, monitor digoxin level. Digoxin level low at 0.4 today. Patient has had recent echocardiogram on 07/02/16 Chads score is 2 Patient anticoagulated with Eliquis S/P Hypoxic respiratory respiratory failure, COPD exacerbation-resolved Patient intubated 07/01/16, extubated 07/03/16 Bronchodilators every 2 hours as needed, patient has not required any in 2 weeks, will discontinue at this time Patient continued on prednisone 10 mg twice daily, will discontinue that at this time Pulmonology following the patient Bibasilar airspace disease noted on chest x-ray, resolved Sputum culture with MRSA, however nasal screen for MRSA was positive also. Could be secondary to colonization Patientc was on Bactrim till 07/21 Patient was started on Lasix with improvement Follow-up chest x-ray shows resolution Encephalopathy: Significantly improved. 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 Patient is much more alert EEG does show moderate encephalopathy, CT scans of the brain did not show any acute abnormality Continue monitor mental status Speech therapy, cognitive evaluation within normal limits. Regular consisting diet Visual hallucinations, resolved likely secondary to alcohol detoxing Psychiatry evaluated patient Continue Seroquel 50 mg at bedtime Elevated liver enzymes: Improved. Multifactorial with patient with alcohol use, PEA cardiac arrest Follow-up liver enzymes are normal Hypocalcemia/Hyponatremia/Hypokalemia/Hypomagnesemia: Resolved. Monitor and replete as needed Thrombocytopenia: Improved. No signs of bleeding. Due to alcoholism Monitor CBC DVT Prophylaxis: On Eliquis Discharge Planning SSI initiated. PT following. Needs walker or cane upon discharge. Problem Qualifiers (1) PNA (pneumonia): Qualified Code: J18.1 - Pneumonia of right lower lobe due to infectious organism Erika Mora Aug 06, 2016 11:11
[2016-08-06 11:16] LABS: DIGOXIN 0.4 NG/ML (0.8-2.0)
[2016-08-06] MEDS: APIXABAN 5 MG TABLET PO SCH ×2 (12:00→20:20)
[2016-08-06] MEDS: MULTIVITAMIN TAB PO SCH (12:00)
[2016-08-06] MEDS: DIGOXIN 0.125 MG TAB PO SCH (12:00)
[2016-08-06] MEDS: MAGNESIUM OXIDE 400 MG TAB PO SCH ×2 (12:01→20:19)
[2016-08-06] MEDS: ATORVASTATIN 20 MG TAB PO SCH (12:01)
[2016-08-06 20:00] VITALS: BP 123/83; PULSE 105; RESP 18; TEMP 98.4; O2SAT 96
[2016-08-06] MEDS: QUEtiapine FUMARATE 25 MG TAB PO SCH (20:20)
[2016-08-06] MEDS: MAGNESIUM SULFATE 1 GM PREMIX 100 ML IV SCH ×2 (21:30→22:30)
[2016-08-07] MEDS ORDERED: SODIUM CHLORIDE FLUSH PRN IV FLUSH (00:15)
[2016-08-07] MEDS: MAGNESIUM SULFATE 1 GM PREMIX 100 ML IV SCH ×7 (00:44→13:30)
[2016-08-07 08:00] VITALS: BP 124/81; PULSE 80; RESP 18; TEMP 97.7; O2SAT 97
[2016-08-07] MEDS: MULTIVITAMIN TAB PO SCH (10:07)
[2016-08-07] MEDS: MAGNESIUM OXIDE 400 MG TAB PO SCH ×2 (10:07→20:48)
[2016-08-07] MEDS: ATORVASTATIN 20 MG TAB PO SCH (10:07)
[2016-08-07] MEDS: THIAMINE HCL 100 MG TAB PO SCH (10:07)
[2016-08-07] MEDS: DIGOXIN 0.125 MG TAB PO SCH (10:08)
[2016-08-07] MEDS: APIXABAN 5 MG TABLET PO SCH ×2 (10:08→20:48)
--- NOTE | 2016-08-07 10:12 | HHI.PR ---
Subjective Remarks Follow-up for A.Fib, heart failure, s/p PEA cardiac arrest, hypomagnesemia. The patient complains again of annoying ache over the left upper chest, occurs with deep breathing, no radiation. Pain only lasts seconds; non-exertional. States he has pain when supine. States he will also get a shock like sensation at times. Patient told me he has had this for 20 years but he notices it more or it is occurring more frequently now. Objective Vitals Vital Signs Date Time Temp Pulse Resp B/P Pulse Ox O2 Delivery O2 Flow Rate FiO2 08/07/16 08:00 97.7 80 18 124/81 97 08/06/16 20:00 98.4 105 18 123/83 96 I/O 08/06/16 08/06/16 08/06/16 08/07/16 08/07/16 08/07/16 07:00 15:00 23:00 07:00 15:00 23:00 Intake Total 120 ml 730 ml 720 ml 705 ml Output Total 200 ml Balance -80 ml 730 ml 720 ml 705 ml Intake Oral 120 ml 730 ml 720 ml 480 ml IV Total 225 ml Output Urine Total 200 ml # Voids 3 3 3 # Bowel Movements 0 0 0 Result Diagram: 08/06/16 1015 Objective Remarks GENERAL: Pleasant well-developed patient in no apparent distress. SKIN: Warm and dry. CARDIOVASCULAR: Normal rate, irregularly irregular rhythm. RESPIRATORY: No accessory muscle use. Clear to auscultation. Breath sounds equal bilaterally. GASTROINTESTINAL: Normoactive bowel sounds. Abdomen soft, non-tender, nondistended. NEUROLOGICAL: Awake and alert. Normal speech. PSYCHIATRIC: Appropriate mood and affect. Urinary Catheter: No Date of Insertion: Jul 01, 2016 Date of Removal: Jul 09, 2016 Vascular Central Line Catheter: No Date of Insertion: Jul 01, 2016 Date of Removal: Jul 06, 2016 A/P Problem List: (1) Atrial fibrillation with RVR ICD Code: I48.91 Status: Acute (2) PNA (pneumonia) ICD Code: J18.9 Status: Acute (3) COPD exacerbation ICD Code: J44.1 Status: Acute (4) Elevated troponin ICD Code: R74.8 Status: Acute Assessment and Plan Deconditioning Continue physical therapy on a daily basis. Walking 120 feet with FWW SBA and 20 feet unaided. Physical therapy indicates that patient may need use walker or cane upon discharge and return to prior setting which is homeless. Chest pain, atypical: Resolved Cardiac enzymes were performed which did not indicate any acute coronary event EKG shows atrial fibrillation with PVCs. No signs of any acute coronary event Nuclear stress test was performed which did not indicate any signs of reversible perfusion defect. However did indicate left ventricle dilation with global hypokinesis and ejection fraction 29%. Lipid panel performed which did show LDL 129, continue Lipitor 20 mg daily 08/06: Patient now states dull L chest discomfort does not always occur with deep breathing; it's intermittent and lasts only seconds. He does have some muscular tenderness over the L scapula which could be contributing to chest discomfort; states chest discomfort feels like a "weak muscle". I do not believe the patient has any acute cardiac or pulmonary issue. Cardiac workup was performed recently and pain is atypical. Lung exam is benign. He is afebrile with good oxygen saturation. He is on Eliquis so is less likely to develop PE and he has no sob at rest. No chest x-ray needed at this time. Will monitor clinically. 08/07: Dr. Newton also evaluated the patient. No reproducible chest tenderness but we agree chest discomfort could be muscular. Will start Robaxin 750 mg q8h as needed. Hypomagnesemia: Improved. Mg 1.4 yesterday-->1.8 this morning s/p 2 g IV MgSO4. -Additional 2 g IV MgSO4 ordered. -Repeat am Mg level. -Patient is currently on po magnesium oxide 400 mg q12h, continue. Cardiomyopathy/NSTEMI/PEA arrest/Systolic congestive heart failure/Hypotension: Status post cardiopulmonary resuscitation with return of spontaneous pulse and breathing Echo 06/30: EF 2530%, aortic valve mild regurgitation, mitral valve mild to moderate regurgitation, tricuspid valve trace to mild regurgitation, systolic function severely diminished. Echo 07/02: EF 30-35% with diffuse hypokinesis and small pericardial effusion. Cardiology was following the patient and signed off on 07/09, indicated patient stable to discharge from cardiology standpoint. Follow-up out patient setting Discussed with cardiology who indicated patient will require evaluation for AICD at 90 days post cardiac arrest. Patient will require outpatient follow-up Unable to use beta ganesh, HERMINIO inhibitor, calcium channel ganesh, nitrate, due to low blood pressure. The patient significant cardiomyopathy systolic blood pressure 8090 is appropriate as long as map is staying above 65. Patient BP has been improving since 08/02. BP 124/81 this morning. If BP continues to remain normal, may be able to start on Atrial fibrillation with RVR, heart rate controlled Unable to use calcium channel blockers, beta blockers, amiodarone for rate control or conversion due to low blood pressure secondary to cardiomyopathy Continue digoxin 0.125 mg daily, monitor digoxin level. Digoxin level 0.4 on . Patient has had recent echocardiogram on 07/02/16 Chads score is 2 Patient anticoagulated with Eliquis S/P Hypoxic respiratory respiratory failure, COPD exacerbation-resolved Patient intubated 07/01/16, extubated 07/03/16 Bronchodilators every 2 hours as needed, patient has not required any in 2 weeks, will discontinue at this time Patient continued on prednisone 10 mg twice daily, will discontinue that at this time Pulmonology following the patient Bibasilar airspace disease noted on chest x-ray, resolved Sputum culture with MRSA, however nasal screen for MRSA was positive also. Could be secondary to colonization Patientc was on Bactrim till 07/21 Patient was started on Lasix with improvement Follow-up chest x-ray shows resolution Encephalopathy: Significantly improved. 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 Patient is much more alert EEG does show moderate encephalopathy, CT scans of the brain did not show any acute abnormality Continue monitor mental status Speech therapy, cognitive evaluation within normal limits. Regular consisting diet Visual hallucinations, resolved likely secondary to alcohol detoxing Psychiatry evaluated patient Continue Seroquel 50 mg at bedtime Elevated liver enzymes: Improved. Multifactorial with patient with alcohol use, PEA cardiac arrest Follow-up liver enzymes are normal Hypocalcemia/Hyponatremia/Hypokalemia/Hypomagnesemia: Resolved. Monitor and replete as needed Thrombocytopenia: Improved. No signs of bleeding. Due to alcoholism Monitor CBC DVT Prophylaxis: On Eliquis Discharge Planning SSI initiated. PT following. Needs walker or cane upon discharge. Problem Qualifiers (1) PNA (pneumonia): Qualified Code: J18.1 - Pneumonia of right lower lobe due to infectious organism Erika Mora Aug 07, 2016 10:11
[2016-08-07] MEDS: METHOCARBAMOL 500 MG TAB PO PRN ×2 (15:45→23:53)
[2016-08-07 20:00] VITALS: BP 121/87; PULSE 98; RESP 18; TEMP 96.8; O2SAT 97
[2016-08-07] MEDS: QUEtiapine FUMARATE 25 MG TAB PO SCH (20:48)
[2016-08-08 08:00] VITALS: BP 96/73; PULSE 95; RESP 19; TEMP 97.4; O2SAT 96
[2016-08-08] MEDS: MULTIVITAMIN TAB PO SCH (08:15)
[2016-08-08] MEDS: THIAMINE HCL 100 MG TAB PO SCH (08:15)
[2016-08-08] MEDS: APIXABAN 5 MG TABLET PO SCH ×2 (08:16→20:49)
[2016-08-08] MEDS: MAGNESIUM OXIDE 400 MG TAB PO SCH ×2 (08:16→18:23)
[2016-08-08] MEDS: METHOCARBAMOL 500 MG TAB PO PRN ×2 (08:16→16:08)
[2016-08-08] MEDS: ATORVASTATIN 20 MG TAB PO SCH (08:16)
[2016-08-08] MEDS: DIGOXIN 0.125 MG TAB PO SCH (08:16)
--- NOTE | 2016-08-08 11:53 | HHI.PR ---
Subjective Remarks Follow-up for A.Fib, heart failure, s/p PEA cardiac arrest, hypomagnesemia. Patient states Robaxin helped somewhat although he still has the atypical chest discomfort. Objective Vitals Vital Signs Date Time Temp Pulse Resp B/P Pulse Ox O2 Delivery O2 Flow Rate FiO2 08/08/16 08:00 97.4 95 19 96/73 96 08/07/16 20:00 96.8 98 18 121/87 97 I/O 08/07/16 08/07/16 08/07/16 08/08/16 08/08/16 08/08/16 07:00 15:00 23:00 07:00 15:00 23:00 Intake Total 705 ml 1080 ml 720 ml Balance 705 ml 1080 ml 720 ml Intake Oral 480 ml 1080 ml 720 ml IV Total 225 ml # Voids 3 7 3 # Bowel Movements 0 1 0 Result Diagram: 08/06/16 1015 Objective Remarks GENERAL: Pleasant well-developed patient in no apparent distress. SKIN: Warm and dry. CARDIOVASCULAR: Normal rate, irregularly irregular rhythm. RESPIRATORY: No accessory muscle use. Clear to auscultation. Breath sounds equal bilaterally. GASTROINTESTINAL: Abdomen soft, non-tender, nondistended. NEUROLOGICAL: Awake and alert. Normal speech. PSYCHIATRIC: Appropriate mood and affect. Urinary Catheter: No Date of Insertion: Jul 01, 2016 Date of Removal: Jul 09, 2016 Vascular Central Line Catheter: No Date of Insertion: Jul 01, 2016 Date of Removal: Jul 06, 2016 A/P Problem List: (1) Atrial fibrillation with RVR ICD Code: I48.91 Status: Acute (2) PNA (pneumonia) ICD Code: J18.9 Status: Acute (3) COPD exacerbation ICD Code: J44.1 Status: Acute (4) Elevated troponin ICD Code: R74.8 Status: Acute Assessment and Plan Deconditioning Continue physical therapy on a daily basis. Walking 120 feet with FWW SBA and 20 feet unaided. Physical therapy indicates that patient may need use walker or cane upon discharge and return to prior setting which is homeless. Chest pain, atypical: Resolved Cardiac enzymes were performed which did not indicate any acute coronary event EKG shows atrial fibrillation with PVCs. No signs of any acute coronary event Nuclear stress test was performed which did not indicate any signs of reversible perfusion defect. However did indicate left ventricle dilation with global hypokinesis and ejection fraction 29%. Lipid panel performed which did show LDL 129, continue Lipitor 20 mg daily 08/06: Patient now states dull L chest discomfort does not always occur with deep breathing; it's intermittent and lasts only seconds. He does have some muscular tenderness over the L scapula which could be contributing to chest discomfort; states chest discomfort feels like a "weak muscle". I do not believe the patient has any acute cardiac or pulmonary issue. Cardiac workup was performed recently and pain is atypical. Lung exam is benign. He is afebrile with good oxygen saturation. He is on Eliquis so is less likely to develop PE and he has no sob at rest. No chest x-ray needed at this time. Will monitor clinically. 08/07: Dr. Newton also evaluated the patient. No reproducible chest tenderness but we agree chest discomfort could be muscular. Patient started on Robaxin 750 mg q8h as needed. 08/08: Patient had some mild relief with Robaxin, continue as needed. Hypomagnesemia: Mg 1.4-->1.8 yesterday-->1.5 this am after 2 additional g of IV Mg yesterday. Patient lost IV access and does not have IV currently. Unclear why patient's Mg does not adequately rise with repletion. There should be no effect from current medications. He is not on a diuretic. -Repeat Mg level today 1.3. Will order another 2 g MgSO4 IV. -Patient is currently on po magnesium oxide 400 mg q12h, will increase to tid. -Recheck am BMP. Cardiomyopathy/NSTEMI/PEA arrest/Systolic congestive heart failure/Hypotension: Status post cardiopulmonary resuscitation with return of spontaneous pulse and breathing Echo 06/30: EF 2530%, aortic valve mild regurgitation, mitral valve mild to moderate regurgitation, tricuspid valve trace to mild regurgitation, systolic function severely diminished. Echo 07/02: EF 30-35% with diffuse hypokinesis and small pericardial effusion. Cardiology was following the patient and signed off on 07/09, indicated patient stable to discharge from cardiology standpoint. Follow-up out patient setting Discussed with cardiology who indicated patient will require evaluation for AICD at 90 days post cardiac arrest. Patient will require outpatient follow-up Unable to use beta ganesh, HERMINIO inhibitor, calcium channel ganesh, nitrate, due to low blood pressure. The patient significant cardiomyopathy systolic blood pressure 8090 is appropriate as long as map is staying above 65. Patient BP has been improving since 08/02. BP 124/81 this morning. If BP continues to remain normal, may be able to start on Atrial fibrillation with RVR, heart rate controlled Unable to use calcium channel blockers, beta blockers, amiodarone for rate control or conversion due to low blood pressure secondary to cardiomyopathy Continue digoxin 0.125 mg daily, monitor digoxin level. Digoxin level 0.4 on . Patient has had recent echocardiogram on 07/02/16 Chads score is 2 Patient anticoagulated with Eliquis S/P Hypoxic respiratory respiratory failure, COPD exacerbation-resolved Patient intubated 07/01/16, extubated 07/03/16 Bronchodilators every 2 hours as needed, patient has not required any in 2 weeks, will discontinue at this time Patient continued on prednisone 10 mg twice daily, will discontinue that at this time Pulmonology following the patient Bibasilar airspace disease noted on chest x-ray, resolved Sputum culture with MRSA, however nasal screen for MRSA was positive also. Could be secondary to colonization Patientc was on Bactrim till 07/21 Patient was started on Lasix with improvement Follow-up chest x-ray shows resolution Encephalopathy: Significantly improved. 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 Patient is much more alert EEG does show moderate encephalopathy, CT scans of the brain did not show any acute abnormality Continue monitor mental status Speech therapy, cognitive evaluation within normal limits. Regular consisting diet Visual hallucinations, resolved likely secondary to alcohol detoxing Psychiatry evaluated patient Continue Seroquel 50 mg at bedtime Elevated liver enzymes: Improved. Multifactorial with patient with alcohol use, PEA cardiac arrest Follow-up liver enzymes are normal Hypocalcemia/Hyponatremia/Hypokalemia/Hypomagnesemia: Resolved. Monitor and replete as needed Thrombocytopenia: Improved. No signs of bleeding. Due to alcoholism Monitor CBC DVT Prophylaxis: On Eliquis Discharge Planning SSI initiated. PT following. Needs walker or cane upon discharge. Problem Qualifiers (1) PNA (pneumonia): Qualified Code: J18.1 - Pneumonia of right lower lobe due to infectious organism Erika Mora Aug 08, 2016 11:53
[2016-08-08 20:00] VITALS: BP 105/57; PULSE 97; RESP 24; TEMP 99.1; O2SAT 94
[2016-08-08] MEDS: MAGNESIUM SULFATE 1 GM PREMIX 100 ML IV SCH ×2 (20:45→21:45)
[2016-08-08] MEDS: QUEtiapine FUMARATE 25 MG TAB PO SCH (20:50)
[2016-08-09] MEDS: METHOCARBAMOL 500 MG TAB PO PRN ×3 (00:41→16:54)
[2016-08-09] MEDS ORDERED: MAGNESIUM SULFATE 1 GM PREMIX 100 ML IV ONE (01:31)
[2016-08-09 08:00] VITALS: BP 98/73; PULSE 88; RESP 16; TEMP 97.3; O2SAT 96
[2016-08-09] MEDS: ATORVASTATIN 20 MG TAB PO SCH (08:44)
[2016-08-09] MEDS: APIXABAN 5 MG TABLET PO SCH ×2 (08:44→21:02)
[2016-08-09] MEDS: DIGOXIN 0.125 MG TAB PO SCH (08:44)
[2016-08-09] MEDS: MAGNESIUM OXIDE 400 MG TAB PO SCH ×3 (08:44→18:52)
[2016-08-09] MEDS: MULTIVITAMIN TAB PO SCH (08:44)
[2016-08-09] MEDS: THIAMINE HCL 100 MG TAB PO SCH (08:45)
[2016-08-09 08:56] LABS: POTASSIUM 3.8 MEQ/L (3.5-5.1)
[2016-08-09 08:59] LABS: BICARBONATE 27.7 MEQ/L (21.0-32.0)
--- NOTE | 2016-08-09 11:58 | HHI.PR ---
Subjective Remarks Follow-up for A.Fib, heart failure, s/p PEA cardiac arrest, hypomagnesemia, chronic atypical L chest discomfort. Patient still has the left upper chest discomfort with yawning and deep breathing. Magnesium was still noted to be low after IV repletion. Patient denies any vomiting or diarrhea. He does state he is urinating a lot. Objective Vitals Vital Signs Date Time Temp Pulse Resp B/P Pulse Ox O2 Delivery O2 Flow Rate FiO2 08/09/16 08:00 97.3 88 16 98/73 96 08/08/16 20:00 99.1 97 24 105/57 94 I/O 08/08/16 08/08/16 08/08/16 08/09/16 08/09/16 08/09/16 07:00 15:00 23:00 07:00 15:00 23:00 Intake Total 720 ml 1240 ml 120 ml Balance 720 ml 1240 ml 120 ml Intake Oral 720 ml 1240 ml 120 ml # Voids 3 5 3 # Bowel Movements 0 2 Result Diagram: 08/09/16 0825 Objective Remarks GENERAL: Pleasant well-developed patient in no apparent distress. SKIN: Warm and dry. CARDIOVASCULAR: Normal rate, irregularly irregular rhythm. RESPIRATORY: No accessory muscle use. Clear to auscultation. Breath sounds equal bilaterally. MUSCULOSKELETAL: No lower extremity edema bilaterally. NEUROLOGICAL: Awake and alert. Normal speech. PSYCHIATRIC: Appropriate mood and affect. Urinary Catheter: No Date of Insertion: Jul 01, 2016 Date of Removal: Jul 09, 2016 Vascular Central Line Catheter: No Date of Insertion: Jul 01, 2016 Date of Removal: Jul 06, 2016 A/P Problem List: (1) Atrial fibrillation with RVR ICD Code: I48.91 Status: Acute (2) PNA (pneumonia) ICD Code: J18.9 Status: Acute (3) COPD exacerbation ICD Code: J44.1 Status: Acute (4) Elevated troponin ICD Code: R74.8 Status: Acute Assessment and Plan Deconditioning Continue physical therapy on a daily basis. Walking 120 feet with FWW SBA and 20 feet unaided. Physical therapy indicates that patient may need use walker or cane upon discharge and return to prior setting which is homeless. Chest pain, atypical: Cardiac enzymes were performed which did not indicate any acute coronary event EKG shows atrial fibrillation with PVCs. No signs of any acute coronary event Nuclear stress test was performed which did not indicate any signs of reversible perfusion defect. However did indicate left ventricle dilation with global hypokinesis and ejection fraction 29%. Lipid panel performed which did show LDL 129, continue Lipitor 20 mg daily 08/06: Patient now states dull L chest discomfort does not always occur with deep breathing; it's intermittent and lasts only seconds. He does have some muscular tenderness over the L scapula which could be contributing to chest discomfort; states chest discomfort feels like a "weak muscle". I do not believe the patient has any acute cardiac or pulmonary issue. Cardiac workup was performed recently and pain is atypical. Lung exam is benign. He is afebrile with good oxygen saturation. He is on Eliquis so is less likely to develop PE and he has no sob at rest. No chest x-ray needed at this time. Will monitor clinically. 08/07: Dr. Newton also evaluated the patient. No reproducible chest tenderness but we agree chest discomfort could be muscular. Patient started on Robaxin 750 mg q8h as needed. 08/08: Patient had some mild relief with Robaxin, continue as needed. 08/09: Persistent L chest discomfort with breathing. Old chest x-ray reviewed with no evidence of mass Hypomagnesemia: Still low at 1.6 despite several doses of IV Mg. Unclear why patient's Mg does not adequately rise with repletion. There should be no effect from current medications. He is not on a diuretic. -Discussed with Dr. Newton who suggests an additional 2 g of IV Mg now and 2 g in the am. Advises obtaining a urine Mg level. -Continue po magnesium oxide 400 mg tid as this is well tolerated. -Recheck serum Mg level tomorrow afternoon. Cardiomyopathy/NSTEMI/PEA arrest/Systolic congestive heart failure/Hypotension: Status post cardiopulmonary resuscitation with return of spontaneous pulse and breathing Echo 06/30: EF 2530%, aortic valve mild regurgitation, mitral valve mild to moderate regurgitation, tricuspid valve trace to mild regurgitation, systolic function severely diminished. Echo 07/02: EF 30-35% with diffuse hypokinesis and small pericardial effusion. Cardiology was following the patient and signed off on 07/09, indicated patient stable to discharge from cardiology standpoint. Follow-up out patient setting Discussed with cardiology who indicated patient will require evaluation for AICD at 90 days post cardiac arrest. Patient will require outpatient follow-up Unable to use beta ganesh, HERMINIO inhibitor, calcium channel ganesh, nitrate, due to low blood pressure. The patient significant cardiomyopathy systolic blood pressure 8090 is appropriate as long as map is staying above 65. 08/09: BP was transiently wnl over the last few days, but systolic back in the 90's this morning but MAP intact. Atrial fibrillation with RVR, heart rate controlled Unable to use calcium channel blockers, beta blockers, amiodarone for rate control or conversion due to low blood pressure secondary to cardiomyopathy Continue digoxin 0.125 mg daily, monitor digoxin level. Digoxin level 0.4 on . Patient has had recent echocardiogram on 07/02/16 Chads score is 2 Patient anticoagulated with Eliquis S/P Hypoxic respiratory respiratory failure, COPD exacerbation-resolved Patient intubated 07/01/16, extubated 07/03/16 Bronchodilators every 2 hours as needed, patient has not required any in 2 weeks, will discontinue at this time Patient continued on prednisone 10 mg twice daily, will discontinue that at this time Pulmonology following the patient Bibasilar airspace disease noted on chest x-ray, resolved Sputum culture with MRSA, however nasal screen for MRSA was positive also. Could be secondary to colonization Patientc was on Bactrim till 07/21 Patient was started on Lasix with improvement Follow-up chest x-ray shows resolution Encephalopathy: Significantly improved. 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 Patient is much more alert EEG does show moderate encephalopathy, CT scans of the brain did not show any acute abnormality Continue monitor mental status Speech therapy, cognitive evaluation within normal limits. Regular consisting diet Visual hallucinations, resolved likely secondary to alcohol detoxing Psychiatry evaluated patient Continue Seroquel 50 mg at bedtime Elevated liver enzymes: Improved. Multifactorial with patient with alcohol use, PEA cardiac arrest Follow-up liver enzymes are normal Hypocalcemia/Hyponatremia/Hypokalemia/Hypomagnesemia: Resolved. Monitor and replete as needed Thrombocytopenia: Improved. No signs of bleeding. Due to alcoholism Monitor CBC DVT Prophylaxis: On Eliquis Discharge Planning SSI initiated. PT following. Needs walker or cane upon discharge. Problem Qualifiers (1) PNA (pneumonia): Qualified Code: J18.1 - Pneumonia of right lower lobe due to infectious organism Erika Mora Aug 09, 2016 11:58
[2016-08-09] MEDS: MAGNESIUM SULFATE 1 GM PREMIX 100 ML IV SCH ×2 (12:24→13:32)
[2016-08-09 19:00] VITALS: BP 113/78; PULSE 102; RESP 17; TEMP 96.1; O2SAT 98
[2016-08-09 20:00] VITALS: BP 113/78; PULSE 102; RESP 18; TEMP 96.1; O2SAT 98
[2016-08-09] MEDS: QUEtiapine FUMARATE 25 MG TAB PO SCH (21:02)
[2016-08-10 08:00] VITALS: BP 94/66; PULSE 100; RESP 18; TEMP 98.3; O2SAT 98
[2016-08-10] MEDS: MAGNESIUM OXIDE 400 MG TAB PO SCH ×3 (08:54→17:05)
[2016-08-10] MEDS: MULTIVITAMIN TAB PO SCH (08:54)
[2016-08-10] MEDS: APIXABAN 5 MG TABLET PO SCH ×2 (08:54→21:23)
[2016-08-10] MEDS: DIGOXIN 0.125 MG TAB PO SCH (08:54)
[2016-08-10] MEDS: MAGNESIUM SULFATE 1 GM PREMIX 100 ML IV SCH ×2 (08:55→11:41)
[2016-08-10] MEDS: THIAMINE HCL 100 MG TAB PO SCH (08:55)
[2016-08-10] MEDS: ATORVASTATIN 20 MG TAB PO SCH (08:56)
[2016-08-10] MEDS: METHOCARBAMOL 500 MG TAB PO PRN ×2 (08:56→17:05)
--- NOTE | 2016-08-10 10:37 | HHI.PR ---
Subjective Remarks Follow-up for A.Fib, heart failure, s/p PEA cardiac arrest, hypomagnesemia, chronic atypical L chest discomfort. Patient still complains of annoying dull left chest discomfort. He states it felt like a "fist" when he awoke this morning and does admit to a little pressure, but he still states it primarily occurs with lying down and breathing. He states it has not changed from prior. Objective Vitals Vital Signs Date Time Temp Pulse Resp B/P Pulse Ox O2 Delivery O2 Flow Rate FiO2 08/10/16 08:00 98.3 100 18 94/66 98 08/09/16 20:00 96.1 102 18 113/78 98 08/09/16 19:00 96.1 102 17 113/78 98 I/O 08/09/16 08/09/16 08/09/16 08/10/16 08/10/16 08/10/16 07:00 15:00 23:00 07:00 15:00 23:00 Intake Total 120 ml 700 ml Balance 120 ml 700 ml Intake Oral 120 ml 480 ml IV Total 220 ml # Voids 3 3 # Bowel Movements 1 1 Result Diagram: 08/09/16 0825 Objective Remarks GENERAL: Pleasant well-developed patient in no apparent distress. SKIN: Warm and dry. CHEST: No reproducible chest wall tenderness. CARDIOVASCULAR: Mildly tachycardic rate with irregularly irregular rhythm. RESPIRATORY: No accessory muscle use. Clear to auscultation. Breath sounds equal bilaterally. GASTROINTESTINAL: Abdomen soft, non-tender, non-distended. MUSCULOSKELETAL: No lower extremity edema bilaterally. NEUROLOGICAL: Awake and alert. Normal speech. PSYCHIATRIC: Appropriate mood and affect. Urinary Catheter: No Date of Insertion: Jul 01, 2016 Date of Removal: Jul 09, 2016 Vascular Central Line Catheter: No Date of Insertion: Jul 01, 2016 Date of Removal: Jul 06, 2016 A/P Problem List: (1) Atrial fibrillation with RVR ICD Code: I48.91 Status: Acute (2) PNA (pneumonia) ICD Code: J18.9 Status: Acute (3) COPD exacerbation ICD Code: J44.1 Status: Acute (4) Elevated troponin ICD Code: R74.8 Status: Acute Assessment and Plan Deconditioning Continue physical therapy on a daily basis. Walking 120 feet with FWW SBA and 20 feet unaided. Physical therapy indicates that patient may need use walker or cane upon discharge and return to prior setting which is homeless. Chest pain, atypical: persistent but stable Cardiac enzymes were performed which did not indicate any acute coronary event EKG shows atrial fibrillation with PVCs. No signs of any acute coronary event Nuclear stress test was performed which did not indicate any signs of reversible perfusion defect. However did indicate left ventricle dilation with global hypokinesis and ejection fraction 29%. Lipid panel performed which did show LDL 129, continue Lipitor 20 mg daily 08/06: Patient now states dull L chest discomfort does not always occur with deep breathing; it's intermittent and lasts only seconds. He does have some muscular tenderness over the L scapula which could be contributing to chest discomfort; states chest discomfort feels like a "weak muscle". I do not believe the patient has any acute cardiac or pulmonary issue. Cardiac workup was performed recently and pain is atypical. Lung exam is benign. He is afebrile with good oxygen saturation. He is on Eliquis so is less likely to develop PE and he has no sob at rest. No chest x-ray needed at this time. Will monitor clinically. 08/07: Dr. Newton also evaluated the patient. No reproducible chest tenderness but we agree chest discomfort could be muscular. Patient started on Robaxin 750 mg q8h as needed. 08/08: Patient had some mild relief with Robaxin, continue as needed. 08/09: Persistent L chest discomfort with breathing. Old chest x-ray reviewed with no evidence of mass 08/10: Patient states there is some pressure over L chest, but still describes it as "annoying" and "dull" and states pain has not changed from prior. He will let RN know if pain worsens. If so, will repeat EKG and enzymes at that time. Discussed with Dr. Newton who states if pain worsens can also repeat limited Echo. Hypomagnesemia: Mg still low at 1.6 despite 4 g of IV Mg between yesterday and today plus prior doses given. Unclear why patient's Mg does not adequately rise with repletion. There should be no effect from current medications. He is not on a diuretic. -Urine Mg level pending. -Continue po magnesium oxide 400 mg tid as this is well tolerated. -Discussed with Dr. Newton. Will not order any further IV Mg at this time. Cardiomyopathy/NSTEMI/PEA arrest/Systolic congestive heart failure/Hypotension: Status post cardiopulmonary resuscitation with return of spontaneous pulse and breathing Echo 06/30: EF 2530%, aortic valve mild regurgitation, mitral valve mild to moderate regurgitation, tricuspid valve trace to mild regurgitation, systolic function severely diminished. Echo 07/02: EF 30-35% with diffuse hypokinesis and small pericardial effusion. Cardiology was following the patient and signed off on 07/09, indicated patient stable to discharge from cardiology standpoint. Follow-up out patient setting Discussed with cardiology who indicated patient will require evaluation for AICD at 90 days post cardiac arrest. Patient will require outpatient follow-up Unable to use beta ganesh, HERMINIO inhibitor, calcium channel ganesh, nitrate, due to low blood pressure. The patient has significant cardiomyopathy. Systolic blood pressure 8090 is appropriate as long as MAP is staying above 65. Atrial fibrillation with RVR, heart rate controlled Unable to use calcium channel blockers, beta blockers, amiodarone for rate control or conversion due to low blood pressure secondary to cardiomyopathy Continue digoxin 0.125 mg daily, monitor digoxin level. Digoxin level 0.4 on . Patient has had recent echocardiogram on 07/02/16 Chads score is 2 Patient anticoagulated with Eliquis S/P Hypoxic respiratory respiratory failure, COPD exacerbation-resolved Patient intubated 07/01/16, extubated 07/03/16 Bronchodilators every 2 hours as needed, patient has not required any in 2 weeks, will discontinue at this time Patient continued on prednisone 10 mg twice daily, will discontinue that at this time Pulmonology following the patient Bibasilar airspace disease noted on chest x-ray, resolved Sputum culture with MRSA, however nasal screen for MRSA was positive also. Could be secondary to colonization Patientc was on Bactrim till 07/21 Patient was started on Lasix with improvement Follow-up chest x-ray shows resolution Encephalopathy: Significantly improved. 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 Patient is much more alert EEG does show moderate encephalopathy, CT scans of the brain did not show any acute abnormality Continue monitor mental status Speech therapy, cognitive evaluation within normal limits. Regular consisting diet Visual hallucinations, resolved likely secondary to alcohol detoxing Psychiatry evaluated patient Continue Seroquel 50 mg at bedtime Elevated liver enzymes: Improved. Multifactorial with patient with alcohol use, PEA cardiac arrest Follow-up liver enzymes are normal Hypocalcemia/Hyponatremia/Hypokalemia: Resolved. Monitor and replete as needed Thrombocytopenia: Improved. No signs of bleeding. Due to alcoholism Monitor CBC DVT Prophylaxis: On Eliquis Discharge Planning SSI initiated. PT following. Needs walker or cane upon discharge. Problem Qualifiers (1) PNA (pneumonia): Qualified Code: J18.1 - Pneumonia of right lower lobe due to infectious organism Erika Mora Aug 10, 2016 10:36
[2016-08-10 20:00] VITALS: BP 100/70; PULSE 89; RESP 18; TEMP 98.3; O2SAT 96
[2016-08-10] MEDS: QUEtiapine FUMARATE 25 MG TAB PO SCH (21:24)
[2016-08-11] MEDS: THIAMINE HCL 100 MG TAB PO SCH (07:59)
[2016-08-11 08:00] VITALS: BP 98/74; PULSE 94; RESP 16; TEMP 97.2; O2SAT 98
[2016-08-11] MEDS: DIGOXIN 0.125 MG TAB PO SCH (08:00)
[2016-08-11] MEDS: ATORVASTATIN 20 MG TAB PO SCH (08:00)
[2016-08-11] MEDS: APIXABAN 5 MG TABLET PO SCH ×2 (08:00→20:34)
[2016-08-11] MEDS: MULTIVITAMIN TAB PO SCH (08:00)
[2016-08-11] MEDS: MAGNESIUM OXIDE 400 MG TAB PO SCH ×2 (08:00→20:34)
--- NOTE | 2016-08-11 11:33 | HHI.PR ---
Subjective Remarks Patient seen and examined today for follow-up on PEA cardiac arrest, generalized weakness, cardiomyopathy. Patient states that he still experiencing intermittent chest discomfort located deep in the left chest. Patient has had multiple workups with enzymes and EKGs without any acute abnormality. The patient extensively on his cardiomyopathy, outpatient follow- up with rapier insertion loom fixer. Objective Vitals Vital Signs Date Time Temp Pulse Resp B/P Pulse Ox O2 Delivery O2 Flow Rate FiO2 08/11/16 08:00 97.2 94 16 98/74 98 08/10/16 20:00 98.3 89 18 100/70 96 I/O 08/10/16 08/10/16 08/10/16 08/11/16 08/11/16 08/11/16 07:00 15:00 23:00 07:00 15:00 23:00 Intake Total 720 ml 1040 ml 480 ml Output Total 300 ml 1190 ml 1300 ml Balance 420 ml -150 ml -820 ml Intake Oral 720 ml 1040 ml 480 ml Output Urine Total 300 ml 1190 ml 1300 ml # Voids 2 5 # Bowel Movements 1 1 0 0 Result Diagram: 08/09/16 0825 Objective Remarks GENERAL: Well-developed, well-nourished, in no acute distress. alert and orientated to person, month, place, current events HEENT: Head is normocephalic without any lesions or masses noted. Facial features are symmetric. Eyes: Extraocular muscles are intact. Conjunctivae were clear. NECK: Supple without any masses. Trachea midline no deviation. No JVD, CARDIAC: Regular rhythm, regular rate. S1/S2 are heard. No murmurs gallops or rubs. LUNGS: Clear to auscultation bilaterally. No wheeze, rhonchi or rales. No use of accessory muscles on inspiration or expiration. ABDOMEN: Soft, nontender. Nondistended. Bowel sounds heard in all 4 quadrants. No organomegaly or masses. Negative rebound, negative guarding EXTREMITIES: No edema, pulses are equal bilaterally. No cyanosis or clubbing NEUROLOGY: Mood and affect appear appropriate. Cranial nerves II through XII grossly intact. Moving all extremities, speech is clear Urinary Catheter: No Date of Insertion: Jul 01, 2016 Date of Removal: Jul 09, 2016 Vascular Central Line Catheter: No Date of Insertion: Jul 01, 2016 Date of Removal: Jul 06, 2016 A/P Assessment and Plan Deconditioning Continue physical therapy on a daily basis. Physical therapy indicates that patient may need use walker or cane upon discharge. Other prior setting which is homeless. Patient is walking with a frontwheel walker 140 feet slowly with standby assist Hypomagnesemia, corrected Magnesium oxide 400 mg 3 times daily Chest pain, atypical: Resolved Cardiac enzymes were performed which did not indicate any acute coronary event EKG shows atrial fibrillation with PVCs. No signs of any acute coronary event Nuclear stress test was performed which did not indicate any signs of reversible perfusion defect. However did indicate left ventricle dilation with global hypokinesis and ejection fraction 29%. Unable to use beta ganesh, nitroglycerin, HERMINIO inhibitor, calcium channel ganesh due to low blood pressure from cardiomyopathy Lipid panel performed which did show LDL 129, continue Lipitor 20 mg daily Encephalopathy: Significantly improved. 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 Patient is much more alert EEG does show moderate encephalopathy, CT scans of the brain did not show any acute abnormality Continue monitor mental status Speech therapy, cognitive evaluation within normal limits. Regular consisting diet Visual hallucinations, resolved likely secondary to alcohol detoxing Psychiatry evaluated patient Continue Seroquel 50 mg at bedtime Elevated liver enzymes Multifactorial with patient with alcohol use, PEA cardiac arrest Follow-up liver enzymes are normal S/P Hypoxic respiratory respiratory failure, COPD exacerbation-resolved Patient intubated 07/01/16, extubated 07/03/16 Bronchodilators every 2 hours as needed, patient has not required any in 2 weeks, will discontinue at this time Patient continued on prednisone 10 mg twice daily, will discontinue that at this time Pulmonology following the patient Bibasilar airspace disease noted on chest x-ray, resolved Sputum culture with MRSA, however nasal screen for MRSA was positive also. Could be secondary to colonization Patient on Bactrim till 07/21 Patient was started on Lasix with improvement Follow-up chest x-ray shows resolution Cardiomyopathy/NSTEMI/PEA arrest/Systolic congestive heart failure/Hypotension: Status post cardiopulmonary resuscitation with return of spontaneous pulse and breathing Echo 06/30: EF 2530%, aortic valve mild regurgitation, mitral valve mild to moderate regurgitation, tricuspid valve trace to mild regurgitation, systolic function severely diminished. Echo 07/02: EF 30-35% with diffuse hypokinesis and small pericardial effusion. Cardiology was following the patient and signed off on 07/09, indicated patient stable to discharge from cardiology standpoint. Follow-up out patient setting Unable to use beta ganesh, HERMINIO inhibitor, calcium channel ganesh, nitrate, due to low blood pressure. The patient significant cardiomyopathy systolic blood pressure 8090 is appropriate as long as map is staying above 65 Discuss with cardiology who indicated patient will require evaluation for AICD and 90 days post cardiac arrest. Patient will require outpatient follow-up Atrial fibrillation with RVR, heart rate controlled Unable to use calcium channel blockers, beta blockers, amiodarone for rate control or conversion due to low blood pressure secondary to cardiomyopathy Patient started on digoxin 0.125 mg daily, monitor digoxin level Patient has had recent echocardiogram on 07/02/16 Chads score is 2 Patient anticoagulated with Eliquis Hypocalcemia/Hyponatremia/Hypokalemia/Hypomagnesemia: Resolved. Monitor and replete as needed Thrombocytopenia: Improved. No signs of bleeding. Due to alcoholism Monitor CBC DVT Prophylaxis: On Eliquis Discharge Planning Case management for discharge planning. Awaiting PT clearance for discharge Evangelist Woods Aug 11, 2016 11:33
[2016-08-11 20:00] VITALS: BP 116/85; PULSE 104; RESP 20; TEMP 97.7; O2SAT 99
[2016-08-11] MEDS: QUEtiapine FUMARATE 25 MG TAB PO SCH (20:34)
[2016-08-12] MEDS: THIAMINE HCL 100 MG TAB PO SCH (07:48)
[2016-08-12] MEDS: APIXABAN 5 MG TABLET PO SCH ×2 (07:48→21:40)
[2016-08-12] MEDS: DIGOXIN 0.125 MG TAB PO SCH (07:49)
[2016-08-12] MEDS: ATORVASTATIN 20 MG TAB PO SCH (07:49)
[2016-08-12] MEDS: MAGNESIUM OXIDE 400 MG TAB PO SCH ×2 (07:49→21:40)
[2016-08-12] MEDS: MULTIVITAMIN TAB PO SCH (07:49)
[2016-08-12 08:00] VITALS: BP 112/80; PULSE 70; RESP 18; TEMP 97.4; O2SAT 97
--- NOTE | 2016-08-12 10:11 | HHI.PR ---
Subjective Remarks Patient seen and examined today in follow up on PEA cardiac arrest, generalized weakness, cardiomyopathy. Patient denies any new complaints today. Does not indicated any recurrent chest pain. Objective Vitals Vital Signs Date Time Temp Pulse Resp B/P Pulse Ox O2 Delivery O2 Flow Rate FiO2 08/12/16 08:00 97.4 70 18 112/80 97 08/11/16 20:00 97.7 104 20 116/85 99 I/O 08/11/16 08/11/16 08/11/16 08/12/16 08/12/16 08/12/16 07:00 15:00 23:00 07:00 15:00 23:00 Intake Total 480 ml 620 ml 480 ml 560 ml 100 ml Output Total 1300 ml 500 ml 800 ml 550 ml Balance -820 ml 120 ml -320 ml 10 ml 100 ml Intake Oral 480 ml 620 ml 480 ml 560 ml 100 ml Output Urine Total 1300 ml 500 ml 800 ml 550 ml # Bowel Movements 0 0 0 0 Result Diagram: 08/09/16 0825 Objective Remarks GENERAL: Well-developed, well-nourished, in no acute distress. alert and orientated to person, month, place, current events HEENT: Head is normocephalic without any lesions or masses noted. Facial features are symmetric. Eyes: Extraocular muscles are intact. Conjunctivae were clear. NECK: Supple without any masses. Trachea midline no deviation. No JVD, CARDIAC: Regular rhythm, regular rate. S1/S2 are heard. No murmurs gallops or rubs. LUNGS: Clear to auscultation bilaterally. No wheeze, rhonchi or rales. No use of accessory muscles on inspiration or expiration. ABDOMEN: Soft, nontender. Nondistended. Bowel sounds heard in all 4 quadrants. No organomegaly or masses. Negative rebound, negative guarding EXTREMITIES: No edema, pulses are equal bilaterally. No cyanosis or clubbing NEUROLOGY: Mood and affect appear appropriate. Cranial nerves II through XII grossly intact. Moving all extremities, speech is clear Urinary Catheter: No Date of Insertion: Jul 01, 2016 Date of Removal: Jul 09, 2016 Vascular Central Line Catheter: No Date of Insertion: Jul 01, 2016 Date of Removal: Jul 06, 2016 A/P Assessment and Plan Deconditioning Continue physical therapy on a daily basis. Physical therapy indicates that patient may need use walker or cane upon discharge. Other prior setting which is homeless. Patient is walking with a frontwheel walker 160 feet slowly with standby assist Hypomagnesemia, corrected Magnesium oxide 400 mg 3 times daily Chest pain, atypical: Resolved Cardiac enzymes were performed which did not indicate any acute coronary event EKG shows atrial fibrillation with PVCs. No signs of any acute coronary event Nuclear stress test was performed which did not indicate any signs of reversible perfusion defect. However did indicate left ventricle dilation with global hypokinesis and ejection fraction 29%. Unable to use beta ganesh, nitroglycerin, HERMINIO inhibitor, calcium channel ganesh due to low blood pressure from cardiomyopathy Lipid panel performed which did show LDL 129, continue Lipitor 20 mg daily Encephalopathy: Significantly improved. 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 Patient is much more alert EEG does show moderate encephalopathy, CT scans of the brain did not show any acute abnormality Continue monitor mental status Speech therapy, cognitive evaluation within normal limits. Regular consisting diet Visual hallucinations, resolved likely secondary to alcohol detoxing Psychiatry evaluated patient Continue Seroquel 50 mg at bedtime Elevated liver enzymes Multifactorial with patient with alcohol use, PEA cardiac arrest Follow-up liver enzymes are normal S/P Hypoxic respiratory respiratory failure, COPD exacerbation-resolved Patient intubated 07/01/16, extubated 07/03/16 Bronchodilators every 2 hours as needed, patient has not required any in 2 weeks, will discontinue at this time Patient continued on prednisone 10 mg twice daily, will discontinue that at this time Pulmonology following the patient Bibasilar airspace disease noted on chest x-ray, resolved Sputum culture with MRSA, however nasal screen for MRSA was positive also. Could be secondary to colonization Patient on Bactrim till 07/21 Patient was started on Lasix with improvement Follow-up chest x-ray shows resolution Cardiomyopathy/NSTEMI/PEA arrest/Systolic congestive heart failure/Hypotension: Status post cardiopulmonary resuscitation with return of spontaneous pulse and breathing Echo 06/30: EF 2530%, aortic valve mild regurgitation, mitral valve mild to moderate regurgitation, tricuspid valve trace to mild regurgitation, systolic function severely diminished. Echo 07/02: EF 30-35% with diffuse hypokinesis and small pericardial effusion. Cardiology was following the patient and signed off on 07/09, indicated patient stable to discharge from cardiology standpoint. Follow-up out patient setting Unable to use beta ganesh, HERMINIO inhibitor, calcium channel ganesh, nitrate, due to low blood pressure. The patient significant cardiomyopathy systolic blood pressure 8090 is appropriate as long as map is staying above 65 Discuss with cardiology who indicated patient will require evaluation for AICD and 90 days post cardiac arrest. Patient will require outpatient follow-up Atrial fibrillation with RVR, heart rate controlled Unable to use calcium channel blockers, beta blockers, amiodarone for rate control or conversion due to low blood pressure secondary to cardiomyopathy Patient started on digoxin 0.125 mg daily, monitor digoxin level Patient has had recent echocardiogram on 07/02/16 Chads score is 2 Patient anticoagulated with Eliquis Hypocalcemia/Hyponatremia/Hypokalemia/Hypomagnesemia: Resolved. Monitor and replete as needed Thrombocytopenia: Improved. No signs of bleeding. Due to alcoholism Monitor CBC DVT Prophylaxis: On Eliquis Discharge Planning Case management for discharge planning. Awaiting PT clearance for discharge Evangelist Woods Aug 12, 2016 10:10
[2016-08-12 20:00] VITALS: BP 122/87; PULSE 113; RESP 20; TEMP 97.9; O2SAT 99
[2016-08-12] MEDS: QUEtiapine FUMARATE 25 MG TAB PO SCH (21:40)
[2016-08-13] MEDS: THIAMINE HCL 100 MG TAB PO SCH (08:47)
[2016-08-13] MEDS: MAGNESIUM OXIDE 400 MG TAB PO SCH ×2 (08:47→21:27)
[2016-08-13] MEDS: MULTIVITAMIN TAB PO SCH (08:47)
[2016-08-13] MEDS: ATORVASTATIN 20 MG TAB PO SCH (08:50)
[2016-08-13] MEDS: DIGOXIN 0.125 MG TAB PO SCH (08:50)
[2016-08-13] MEDS: APIXABAN 5 MG TABLET PO SCH ×2 (08:50→21:27)
[2016-08-13 09:38] VITALS: BP 112/77; PULSE 87; RESP 14; TEMP 96.7; O2SAT 97
--- NOTE | 2016-08-13 11:06 | HHI.PR ---
Subjective Remarks Patient seen and examined today for follow-up on PEA cardiac arrest, weakness. Patient denies any new complaints today. Still states that he gets short of breath whenever he exerts himself. Objective Vitals Vital Signs Date Time Temp Pulse Resp B/P Pulse Ox O2 Delivery O2 Flow Rate FiO2 08/13/16 09:38 96.7 87 14 112/77 97 08/12/16 20:00 97.9 113 20 122/87 99 I/O 08/12/16 08/12/16 08/12/16 08/13/16 08/13/16 08/13/16 07:00 15:00 23:00 07:00 15:00 23:00 Intake Total 560 ml 780 ml 240 ml 290 ml Output Total 550 ml Balance 10 ml 780 ml 240 ml 290 ml Intake Oral 560 ml 780 ml 240 ml 290 ml Output Urine Total 550 ml # Voids 3 2 2 # Bowel Movements 0 0 0 0 Result Diagram: 08/09/16 0825 Objective Remarks GENERAL: Well-developed, well-nourished, in no acute distress. alert and orientated to person, month, place, current events HEENT: Head is normocephalic without any lesions or masses noted. Facial features are symmetric. Eyes: Extraocular muscles are intact. Conjunctivae were clear. NECK: Supple without any masses. Trachea midline no deviation. No JVD, CARDIAC: Regular rhythm, regular rate. S1/S2 are heard. No murmurs gallops or rubs. LUNGS: Clear to auscultation bilaterally. No wheeze, rhonchi or rales. No use of accessory muscles on inspiration or expiration. ABDOMEN: Soft, nontender. Nondistended. Bowel sounds heard in all 4 quadrants. No organomegaly or masses. Negative rebound, negative guarding EXTREMITIES: No edema, pulses are equal bilaterally. No cyanosis or clubbing NEUROLOGY: Mood and affect appear appropriate. Cranial nerves II through XII grossly intact. Moving all extremities, speech is clear Urinary Catheter: No Date of Insertion: Jul 01, 2016 Date of Removal: Jul 09, 2016 Vascular Central Line Catheter: No Date of Insertion: Jul 01, 2016 Date of Removal: Jul 06, 2016 A/P Assessment and Plan Deconditioning Continue physical therapy on a daily basis. Physical therapy indicates that patient may need use walker or cane upon discharge. Other prior setting which is homeless. Patient is walking with a frontwheel walker 160 feet (60 feet with walker and 100 feet unaided) slowly with standby assist Hypomagnesemia, corrected Magnesium oxide 400 mg 3 times daily Chest pain, atypical: Resolved Cardiac enzymes were performed which did not indicate any acute coronary event EKG shows atrial fibrillation with PVCs. No signs of any acute coronary event Nuclear stress test was performed which did not indicate any signs of reversible perfusion defect. However did indicate left ventricle dilation with global hypokinesis and ejection fraction 29%. Unable to use beta ganesh, nitroglycerin, HERMINIO inhibitor, calcium channel ganesh due to low blood pressure from cardiomyopathy Lipid panel performed which did show LDL 129, continue Lipitor 20 mg daily Encephalopathy: Significantly improved. 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 Patient is much more alert EEG does show moderate encephalopathy, CT scans of the brain did not show any acute abnormality Continue monitor mental status Speech therapy, cognitive evaluation within normal limits. Regular consisting diet Visual hallucinations, resolved likely secondary to alcohol detoxing Psychiatry evaluated patient Continue Seroquel 50 mg at bedtime Elevated liver enzymes Multifactorial with patient with alcohol use, PEA cardiac arrest Follow-up liver enzymes are normal S/P Hypoxic respiratory respiratory failure, COPD exacerbation-resolved Patient intubated 07/01/16, extubated 07/03/16 Bronchodilators every 2 hours as needed, patient has not required any in 2 weeks, will discontinue at this time Patient continued on prednisone 10 mg twice daily, will discontinue that at this time Pulmonology following the patient Bibasilar airspace disease noted on chest x-ray, resolved Sputum culture with MRSA, however nasal screen for MRSA was positive also. Could be secondary to colonization Patient on Bactrim till 07/21 Patient was started on Lasix with improvement Follow-up chest x-ray shows resolution Cardiomyopathy/NSTEMI/PEA arrest/Systolic congestive heart failure/Hypotension: Status post cardiopulmonary resuscitation with return of spontaneous pulse and breathing Echo 06/30: EF 2530%, aortic valve mild regurgitation, mitral valve mild to moderate regurgitation, tricuspid valve trace to mild regurgitation, systolic function severely diminished. Echo 07/02: EF 30-35% with diffuse hypokinesis and small pericardial effusion. Cardiology was following the patient and signed off on 07/09, indicated patient stable to discharge from cardiology standpoint. Follow-up out patient setting Unable to use beta ganesh, HERMINIO inhibitor, calcium channel ganesh, nitrate, due to low blood pressure. The patient significant cardiomyopathy systolic blood pressure 8090 is appropriate as long as map is staying above 65 Discuss with cardiology who indicated patient will require evaluation for AICD and 90 days post cardiac arrest. Patient will require outpatient follow-up Atrial fibrillation with RVR, heart rate controlled Unable to use calcium channel blockers, beta blockers, amiodarone for rate control or conversion due to low blood pressure secondary to cardiomyopathy Patient started on digoxin 0.125 mg daily, monitor digoxin level Patient has had recent echocardiogram on 07/02/16 Chads score is 2 Patient anticoagulated with Eliquis Hypocalcemia/Hyponatremia/Hypokalemia/Hypomagnesemia: Resolved. Monitor and replete as needed Thrombocytopenia: Improved. No signs of bleeding. Due to alcoholism Monitor CBC DVT Prophylaxis: On Eliquis Discharge Planning Case management for discharge planning. Awaiting PT clearance for discharge Evangelist Woods Aug 13, 2016 11:05
[2016-08-13 20:00] VITALS: BP 132/94; PULSE 118; RESP 20; TEMP 98.6; O2SAT 99
[2016-08-13] MEDS: QUEtiapine FUMARATE 25 MG TAB PO SCH (21:27)
[2016-08-14 08:00] VITALS: BP 97/77; PULSE 82; RESP 16; TEMP 96.5; O2SAT 100
[2016-08-14] MEDS: THIAMINE HCL 100 MG TAB PO SCH (09:00)
[2016-08-14] MEDS: ATORVASTATIN 20 MG TAB PO SCH (09:18)
[2016-08-14] MEDS: MAGNESIUM OXIDE 400 MG TAB PO SCH ×2 (09:18→22:23)
[2016-08-14] MEDS: DIGOXIN 0.125 MG TAB PO SCH (09:18)
[2016-08-14] MEDS: APIXABAN 5 MG TABLET PO SCH ×2 (09:18→22:23)
[2016-08-14] MEDS: MULTIVITAMIN TAB PO SCH (09:18)
--- NOTE | 2016-08-14 10:24 | HHI.PR ---
Subjective Remarks Patient seen and examined today in follow-up on PEA cardiac arrest and deconditioning. Patient denies any new complaints today. Still awaiting patient to be cleared by physical therapy to discharge. Objective Vitals Vital Signs Date Time Temp Pulse Resp B/P Pulse Ox O2 Delivery O2 Flow Rate FiO2 08/14/16 08:00 96.5 82 16 97/77 100 08/13/16 20:00 98.6 118 20 132/94 99 I/O 08/13/16 08/13/16 08/13/16 08/14/16 08/14/16 08/14/16 07:00 15:00 23:00 07:00 15:00 23:00 Intake Total 290 ml 100 ml 1000 ml 485 ml Balance 290 ml 100 ml 1000 ml 485 ml Intake Oral 290 ml 100 ml 1000 ml 485 ml # Voids 2 4 4 # Bowel Movements 0 1 0 Objective Remarks GENERAL: Well-developed, well-nourished, in no acute distress. alert and orientated to person, month, place, current events HEENT: Head is normocephalic without any lesions or masses noted. Facial features are symmetric. Eyes: Extraocular muscles are intact. Conjunctivae were clear. NECK: Supple without any masses. Trachea midline no deviation. No JVD, CARDIAC: Regular rhythm, regular rate. S1/S2 are heard. No murmurs gallops or rubs. LUNGS: Clear to auscultation bilaterally. No wheeze, rhonchi or rales. No use of accessory muscles on inspiration or expiration. ABDOMEN: Soft, nontender. Nondistended. Bowel sounds heard in all 4 quadrants. No organomegaly or masses. Negative rebound, negative guarding EXTREMITIES: No edema, pulses are equal bilaterally. No cyanosis or clubbing NEUROLOGY: Mood and affect appear appropriate. Cranial nerves II through XII grossly intact. Moving all extremities, speech is clear Urinary Catheter: No Date of Insertion: Jul 01, 2016 Date of Removal: Jul 09, 2016 Vascular Central Line Catheter: No Date of Insertion: Jul 01, 2016 Date of Removal: Jul 06, 2016 A/P Assessment and Plan Deconditioning Continue physical therapy on a daily basis. Physical therapy indicates that patient may need use walker or cane upon discharge. Other prior setting which is homeless. Patient is walking with a frontwheel walker 160 feet (60 feet with walker and 100 feet unaided) slowly with standby assist Hypomagnesemia, corrected Magnesium oxide 800 mg twice daily Chest pain, atypical: Resolved Cardiac enzymes were performed which did not indicate any acute coronary event EKG shows atrial fibrillation with PVCs. No signs of any acute coronary event Nuclear stress test was performed which did not indicate any signs of reversible perfusion defect. However did indicate left ventricle dilation with global hypokinesis and ejection fraction 29%. Unable to use beta ganesh, nitroglycerin, HERMINIO inhibitor, calcium channel ganesh due to low blood pressure from cardiomyopathy Lipid panel performed which did show LDL 129, continue Lipitor 20 mg daily Encephalopathy: Significantly improved. 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 Patient is much more alert EEG does show moderate encephalopathy, CT scans of the brain did not show any acute abnormality Continue monitor mental status Speech therapy, cognitive evaluation within normal limits. Regular consisting diet Visual hallucinations, resolved likely secondary to alcohol detoxing Psychiatry evaluated patient Continue Seroquel 50 mg at bedtime Elevated liver enzymes, resolved Multifactorial with patient with alcohol use, PEA cardiac arrest Follow-up liver enzymes are normal S/P Hypoxic respiratory respiratory failure, COPD exacerbation-resolved Patient intubated 07/01/16, extubated 07/03/16 Bronchodilators every 2 hours as needed, patient has not required any in 2 weeks, will discontinue at this time Patient continued on prednisone 10 mg twice daily, will discontinue that at this time Pulmonology following the patient Bibasilar airspace disease noted on chest x-ray, resolved Sputum culture with MRSA, however nasal screen for MRSA was positive also. Could be secondary to colonization Patient on Bactrim till 07/21 Patient was started on Lasix with improvement Follow-up chest x-ray shows resolution Cardiomyopathy/NSTEMI/PEA arrest/Systolic congestive heart failure/Hypotension: Status post cardiopulmonary resuscitation with return of spontaneous pulse and breathing Echo 06/30: EF 2530%, aortic valve mild regurgitation, mitral valve mild to moderate regurgitation, tricuspid valve trace to mild regurgitation, systolic function severely diminished. Echo 07/02: EF 30-35% with diffuse hypokinesis and small pericardial effusion. Cardiology was following the patient and signed off on 07/09, indicated patient stable to discharge from cardiology standpoint. Follow-up out patient setting Unable to use beta ganesh, HERMINIO inhibitor, calcium channel ganesh, nitrate, due to low blood pressure. The patient significant cardiomyopathy systolic blood pressure 8090 is appropriate as long as map is staying above 65 Discuss with cardiology who indicated patient will require evaluation for AICD and 90 days post cardiac arrest. Patient will require outpatient follow-up Atrial fibrillation with RVR, heart rate controlled Unable to use calcium channel blockers, beta blockers, amiodarone for rate control or conversion due to low blood pressure secondary to cardiomyopathy Patient started on digoxin 0.125 mg daily, monitor digoxin level Patient has had recent echocardiogram on 07/02/16 Chads score is 2 Patient anticoagulated with Eliquis Hypocalcemia/Hyponatremia/Hypokalemia/Hypomagnesemia: Resolved. Monitor and replete as needed Thrombocytopenia: Improved. No signs of bleeding. Due to alcoholism Monitor CBC DVT Prophylaxis: On Eliquis Discharge Planning Case management for discharge planning. Awaiting PT clearance for discharge Evangelist Woods Aug 14, 2016 10:24
[2016-08-14 20:00] VITALS: BP 116/86; PULSE 94; RESP 20; TEMP 97.8; O2SAT 98
[2016-08-14] MEDS: QUEtiapine FUMARATE 25 MG TAB PO SCH (22:24)
[2016-08-15 08:00] VITALS: BP 103/67; PULSE 84; RESP 18; TEMP 96.9; O2SAT 97
[2016-08-15] MEDS: ATORVASTATIN 20 MG TAB PO SCH (09:24)
[2016-08-15] MEDS: APIXABAN 5 MG TABLET PO SCH ×2 (09:24→22:49)
[2016-08-15] MEDS: MAGNESIUM OXIDE 400 MG TAB PO SCH ×2 (09:24→22:48)
[2016-08-15] MEDS: MULTIVITAMIN TAB PO SCH (09:24)
[2016-08-15] MEDS: THIAMINE HCL 100 MG TAB PO SCH (09:24)
[2016-08-15] MEDS: DIGOXIN 0.125 MG TAB PO SCH (09:25)
--- NOTE | 2016-08-15 12:06 | HHI.PR ---
Subjective Remarks Patient seen and examined today in follow-up for PEA cardiac arrest, weakness. Patient denies any new complaints. Patient states that he is getting stronger on a daily basis. Still gets short of breath when he exerts himself too much Objective Vitals Vital Signs Date Time Temp Pulse Resp B/P Pulse Ox O2 Delivery O2 Flow Rate FiO2 08/15/16 08:00 96.9 84 18 103/67 97 08/14/16 20:00 97.8 94 20 116/86 98 I/O 08/14/16 08/14/16 08/14/16 08/15/16 08/15/16 08/15/16 07:00 15:00 23:00 07:00 15:00 23:00 Intake Total 485 ml 1440 ml 480 ml 360 ml Balance 485 ml 1440 ml 480 ml 360 ml Intake Oral 485 ml 1440 ml 480 ml 360 ml # Voids 4 4 2 # Bowel Movements 0 1 Objective Remarks GENERAL: Well-developed, well-nourished, in no acute distress. alert and orientated to person, month, place, current events HEENT: Head is normocephalic without any lesions or masses noted. Facial features are symmetric. Eyes: Extraocular muscles are intact. Conjunctivae were clear. NECK: Supple without any masses. Trachea midline no deviation. No JVD, CARDIAC: Regular rhythm, regular rate. S1/S2 are heard. No murmurs gallops or rubs. LUNGS: Clear to auscultation bilaterally. No wheeze, rhonchi or rales. No use of accessory muscles on inspiration or expiration. ABDOMEN: Soft, nontender. Nondistended. Bowel sounds heard in all 4 quadrants. No organomegaly or masses. Negative rebound, negative guarding EXTREMITIES: No edema, pulses are equal bilaterally. No cyanosis or clubbing NEUROLOGY: Mood and affect appear appropriate. Cranial nerves II through XII grossly intact. Moving all extremities, speech is clear Urinary Catheter: No Date of Insertion: Jul 01, 2016 Date of Removal: Jul 09, 2016 Vascular Central Line Catheter: No Date of Insertion: Jul 01, 2016 Date of Removal: Jul 06, 2016 A/P Assessment and Plan Deconditioning Continue physical therapy on a daily basis. Physical therapy indicates that patient may need use walker or cane upon discharge. Other prior setting which is homeless. Patient is walking with a frontwheel walker 180 feet (60 feet with walker and 120 feet unaided) slowly with standby assist Hypomagnesemia, corrected Magnesium oxide 800 mg twice daily Chest pain, atypical: Resolved Cardiac enzymes were performed which did not indicate any acute coronary event EKG shows atrial fibrillation with PVCs. No signs of any acute coronary event Nuclear stress test was performed which did not indicate any signs of reversible perfusion defect. However did indicate left ventricle dilation with global hypokinesis and ejection fraction 29%. Unable to use beta ganesh, nitroglycerin, HERMINIO inhibitor, calcium channel ganesh due to low blood pressure from cardiomyopathy Lipid panel performed which did show LDL 129, continue Lipitor 20 mg daily Encephalopathy: Significantly improved. 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 Patient is much more alert EEG does show moderate encephalopathy, CT scans of the brain did not show any acute abnormality Continue monitor mental status Speech therapy, cognitive evaluation within normal limits. Regular consisting diet Visual hallucinations, resolved likely secondary to alcohol detoxing Psychiatry evaluated patient Continue Seroquel 50 mg at bedtime Elevated liver enzymes, resolved Multifactorial with patient with alcohol use, PEA cardiac arrest Follow-up liver enzymes are normal S/P Hypoxic respiratory respiratory failure, COPD exacerbation-resolved Patient intubated 07/01/16, extubated 07/03/16 Bronchodilators every 2 hours as needed, patient has not required any in 2 weeks, will discontinue at this time Patient continued on prednisone 10 mg twice daily, will discontinue that at this time Pulmonology following the patient Bibasilar airspace disease noted on chest x-ray, resolved Sputum culture with MRSA, however nasal screen for MRSA was positive also. Could be secondary to colonization Patient on Bactrim till 07/21 Patient was started on Lasix with improvement Follow-up chest x-ray shows resolution Cardiomyopathy/NSTEMI/PEA arrest/Systolic congestive heart failure/Hypotension: Status post cardiopulmonary resuscitation with return of spontaneous pulse and breathing Echo 06/30: EF 2530%, aortic valve mild regurgitation, mitral valve mild to moderate regurgitation, tricuspid valve trace to mild regurgitation, systolic function severely diminished. Echo 07/02: EF 30-35% with diffuse hypokinesis and small pericardial effusion. Cardiology was following the patient and signed off on 07/09, indicated patient stable to discharge from cardiology standpoint. Follow-up out patient setting Unable to use beta ganesh, HERMINIO inhibitor, calcium channel ganesh, nitrate, due to low blood pressure. The patient significant cardiomyopathy systolic blood pressure 8090 is appropriate as long as map is staying above 65 Discuss with cardiology who indicated patient will require evaluation for AICD and 90 days post cardiac arrest. Patient will require outpatient follow-up Atrial fibrillation with RVR, heart rate controlled Unable to use calcium channel blockers, beta blockers, amiodarone for rate control or conversion due to low blood pressure secondary to cardiomyopathy Patient started on digoxin 0.125 mg daily, monitor digoxin level Patient has had recent echocardiogram on 07/02/16 Chads score is 2 Patient anticoagulated with Eliquis Hypocalcemia/Hyponatremia/Hypokalemia/Hypomagnesemia: Resolved. Monitor and replete as needed Thrombocytopenia: Improved. No signs of bleeding. Due to alcoholism Monitor CBC DVT Prophylaxis: On Eliquis Discharge Planning Case management for discharge planning. Awaiting PT clearance for discharge Evangelist Woods Aug 15, 2016 12:06
[2016-08-15 20:00] VITALS: BP 120/93; PULSE 95; RESP 18; TEMP 98.3; O2SAT 98
[2016-08-15] MEDS: QUEtiapine FUMARATE 25 MG TAB PO SCH (22:49)
[2016-08-16 08:00] VITALS: BP 101/71; PULSE 88; RESP 17; TEMP 97.3; O2SAT 96
[2016-08-16] MEDS: ATORVASTATIN 20 MG TAB PO SCH (09:23)
[2016-08-16] MEDS: MULTIVITAMIN TAB PO SCH (09:23)
[2016-08-16] MEDS: DIGOXIN 0.125 MG TAB PO SCH (09:23)
[2016-08-16] MEDS: APIXABAN 5 MG TABLET PO SCH ×2 (09:23→22:09)
[2016-08-16] MEDS: MAGNESIUM OXIDE 400 MG TAB PO SCH ×2 (09:23→22:09)
[2016-08-16] MEDS: THIAMINE HCL 100 MG TAB PO SCH (09:27)
--- NOTE | 2016-08-16 11:04 | HHI.PR ---
Subjective Remarks Patient seen and examined today for follow-up on PEA cardiac arrest, weakness. Patient states that he is up and walking more now. He does get short of breath less frequently than he was before. He is improving daily Objective Vitals Vital Signs Date Time Temp Pulse Resp B/P Pulse Ox O2 Delivery O2 Flow Rate FiO2 08/16/16 08:00 97.3 88 17 101/71 96 08/15/16 20:00 98.3 95 18 120/93 98 I/O 08/15/16 08/15/16 08/15/16 08/16/16 08/16/16 08/16/16 07:00 15:00 23:00 07:00 15:00 23:00 Intake Total 360 ml 630 ml 720 ml 480 ml Output Total 550 ml Balance 360 ml 80 ml 720 ml 480 ml Intake Oral 360 ml 630 ml 480 ml 480 ml Oral Supplement 240 ml Output Urine Total 550 ml # Voids 3 2 # Bowel Movements 0 0 0 Objective Remarks GENERAL: Well-developed, well-nourished, in no acute distress. alert and orientated to person, month, place, current events HEENT: Head is normocephalic without any lesions or masses noted. Facial features are symmetric. Eyes: Extraocular muscles are intact. Conjunctivae were clear. NECK: Supple without any masses. Trachea midline no deviation. No JVD, CARDIAC: Regular rhythm, regular rate. S1/S2 are heard. No murmurs gallops or rubs. LUNGS: Clear to auscultation bilaterally. No wheeze, rhonchi or rales. No use of accessory muscles on inspiration or expiration. ABDOMEN: Soft, nontender. Nondistended. Bowel sounds heard in all 4 quadrants. No organomegaly or masses. Negative rebound, negative guarding EXTREMITIES: No edema, pulses are equal bilaterally. No cyanosis or clubbing NEUROLOGY: Mood and affect appear appropriate. Cranial nerves II through XII grossly intact. Moving all extremities, speech is clear Urinary Catheter: No Date of Insertion: Jul 01, 2016 Date of Removal: Jul 09, 2016 Vascular Central Line Catheter: No Date of Insertion: Jul 01, 2016 Date of Removal: Jul 06, 2016 A/P Assessment and Plan Deconditioning Continue physical therapy on a daily basis. Physical therapy indicates that patient may need use walker or cane upon discharge. Other prior setting which is homeless. Patient is walking with a frontwheel walker 180 feet (60 feet with walker and 120 feet unaided) slowly with standby assist Hypomagnesemia, corrected Magnesium oxide 800 mg twice daily Chest pain, atypical: Resolved Cardiac enzymes were performed which did not indicate any acute coronary event EKG shows atrial fibrillation with PVCs. No signs of any acute coronary event Nuclear stress test was performed which did not indicate any signs of reversible perfusion defect. However did indicate left ventricle dilation with global hypokinesis and ejection fraction 29%. Unable to use beta ganesh, nitroglycerin, HERMINIO inhibitor, calcium channel ganesh due to low blood pressure from cardiomyopathy Lipid panel performed which did show LDL 129, continue Lipitor 20 mg daily Encephalopathy: Significantly improved. 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 Patient is much more alert EEG does show moderate encephalopathy, CT scans of the brain did not show any acute abnormality Continue monitor mental status Speech therapy, cognitive evaluation within normal limits. Regular consisting diet Visual hallucinations, resolved likely secondary to alcohol detoxing Psychiatry evaluated patient Continue Seroquel 50 mg at bedtime Elevated liver enzymes, resolved Multifactorial with patient with alcohol use, PEA cardiac arrest Follow-up liver enzymes are normal S/P Hypoxic respiratory respiratory failure, COPD exacerbation-resolved Patient intubated 07/01/16, extubated 07/03/16 Bronchodilators every 2 hours as needed, patient has not required any in 2 weeks, will discontinue at this time Patient continued on prednisone 10 mg twice daily, will discontinue that at this time Pulmonology following the patient Bibasilar airspace disease noted on chest x-ray, resolved Sputum culture with MRSA, however nasal screen for MRSA was positive also. Could be secondary to colonization Patient on Bactrim till 07/21 Patient was started on Lasix with improvement Follow-up chest x-ray shows resolution Cardiomyopathy/NSTEMI/PEA arrest/Systolic congestive heart failure/Hypotension: Status post cardiopulmonary resuscitation with return of spontaneous pulse and breathing Echo 06/30: EF 2530%, aortic valve mild regurgitation, mitral valve mild to moderate regurgitation, tricuspid valve trace to mild regurgitation, systolic function severely diminished. Echo 07/02: EF 30-35% with diffuse hypokinesis and small pericardial effusion. Cardiology was following the patient and signed off on 07/09, indicated patient stable to discharge from cardiology standpoint. Follow-up out patient setting Unable to use beta ganesh, HERMINIO inhibitor, calcium channel ganesh, nitrate, due to low blood pressure. The patient significant cardiomyopathy systolic blood pressure 8090 is appropriate as long as map is staying above 65 Discuss with cardiology who indicated patient will require evaluation for AICD and 90 days post cardiac arrest. Patient will require outpatient follow-up Atrial fibrillation with RVR, heart rate controlled Unable to use calcium channel blockers, beta blockers, amiodarone for rate control or conversion due to low blood pressure secondary to cardiomyopathy Patient started on digoxin 0.125 mg daily, monitor digoxin level Patient has had recent echocardiogram on 07/02/16 Chads score is 2 Patient anticoagulated with Eliquis Hypocalcemia/Hyponatremia/Hypokalemia/Hypomagnesemia: Resolved. Monitor and replete as needed Thrombocytopenia: Improved. No signs of bleeding. Due to alcoholism Monitor CBC DVT Prophylaxis: On Eliquis Discharge Planning Case management for discharge planning. Awaiting PT clearance for discharge Evangelist Woods Aug 16, 2016 11:04
[2016-08-16 20:00] VITALS: BP 127/85; PULSE 98; RESP 18; TEMP 97.9; O2SAT 99
[2016-08-16] MEDS: QUEtiapine FUMARATE 25 MG TAB PO SCH (22:10)
[2016-08-16] MEDS: ACETAMINOPHEN 325 MG TAB PO PRN (23:04)
[2016-08-17 05:29] LABS: AUTOMATED NEUTROPHIL # 2.9 TH/MM3 (1.8-7.7); BASOPHIL # 0.1 TH/MM3 (0-0.2); BASOPHIL % 0.9 % (0.0-2.0); EOSINOPHIL # 0.2 TH/MM3 (0-0.4); EOSINOPHIL % 2.7 % (0.0-4.0); HEMO FLAGS DIFF FINAL; LYMPH % 36.8 % (9.0-44.0); LYMPHOCYTE # 2.3 TH/MM3 (1.0-4.8); MEAN CELL VOLUME 93.3 FL (80.0-100.0); MEAN CORPUSCULAR HEMOGLOBIN 32.3 PG (27.0-34.0); MEAN CORPUSCULAR HGB CONC 34.7 % (32.0-36.0); MONO % 13.7 % (0.0-8.0); NEUT % 45.9 % (16.0-70.0); PLATELET COUNT 104 TH/MM3 (150-450); RED CELL DISTRIBUTION WIDTH 12.4 % (11.6-17.2); WHITE BLOOD COUNT 6.4 TH/MM3 (4.0-11.0)
[2016-08-17 05:40] LABS: BICARBONATE 31.9 MEQ/L (21.0-32.0); MAGNESIUM 1.6 MG/DL (1.5-2.5)
[2016-08-17 08:00] VITALS: BP 101/72; PULSE 78; RESP 19; TEMP 97.8; O2SAT 94
[2016-08-17] MEDS: THIAMINE HCL 100 MG TAB PO SCH (10:28)
[2016-08-17] MEDS: MULTIVITAMIN TAB PO SCH (10:28)
[2016-08-17] MEDS: ATORVASTATIN 20 MG TAB PO SCH (10:28)
[2016-08-17] MEDS: APIXABAN 5 MG TABLET PO SCH ×2 (10:28→20:18)
[2016-08-17] MEDS: DIGOXIN 0.125 MG TAB PO SCH (10:28)
[2016-08-17] MEDS: MAGNESIUM OXIDE 400 MG TAB PO SCH ×2 (10:29→20:19)
--- NOTE | 2016-08-17 13:24 | HHI.PR ---
Subjective Remarks Patient seen and examined today for follow-up on PEA cardiac arrest, weakness. Patient denies any new complaints. No change in clinical status. Objective Vitals Vital Signs Date Time Temp Pulse Resp B/P Pulse Ox O2 Delivery O2 Flow Rate FiO2 08/17/16 08:00 97.8 78 19 101/72 94 08/16/16 20:00 97.9 98 18 127/85 99 I/O 08/16/16 08/16/16 08/16/16 08/17/16 08/17/16 08/17/16 07:00 15:00 23:00 07:00 15:00 23:00 Intake Total 480 ml 550 ml 720 ml 480 ml Balance 480 ml 550 ml 720 ml 480 ml Intake Oral 480 ml 550 ml 720 ml 480 ml # Voids 2 3 2 3 # Bowel Movements 0 0 0 0 Result Diagram: 08/17/16 0437 08/17/16436 Objective Remarks GENERAL: Well-developed, well-nourished, in no acute distress. alert and orientated to person, month, place, current events HEENT: Head is normocephalic without any lesions or masses noted. Facial features are symmetric. Eyes: Extraocular muscles are intact. Conjunctivae were clear. NECK: Supple without any masses. Trachea midline no deviation. No JVD, CARDIAC: Regular rhythm, regular rate. S1/S2 are heard. No murmurs gallops or rubs. LUNGS: Clear to auscultation bilaterally. No wheeze, rhonchi or rales. No use of accessory muscles on inspiration or expiration. ABDOMEN: Soft, nontender. Nondistended. Bowel sounds heard in all 4 quadrants. No organomegaly or masses. Negative rebound, negative guarding EXTREMITIES: No edema, pulses are equal bilaterally. No cyanosis or clubbing NEUROLOGY: Mood and affect appear appropriate. Cranial nerves II through XII grossly intact. Moving all extremities, speech is clear Urinary Catheter: No Date of Insertion: Jul 01, 2016 Date of Removal: Jul 09, 2016 Vascular Central Line Catheter: No Date of Insertion: Jul 01, 2016 Date of Removal: Jul 06, 2016 A/P Assessment and Plan Deconditioning Continue physical therapy on a daily basis. Physical therapy indicates that patient may need use walker or cane upon discharge. Other prior setting which is homeless. Patient is walking with a frontwheel walker 180 feet (60 feet with walker and 120 feet unaided) slowly with standby assist Hypomagnesemia, corrected Magnesium oxide 800 mg twice daily Chest pain, atypical: Resolved Cardiac enzymes were performed which did not indicate any acute coronary event EKG shows atrial fibrillation with PVCs. No signs of any acute coronary event Nuclear stress test was performed which did not indicate any signs of reversible perfusion defect. However did indicate left ventricle dilation with global hypokinesis and ejection fraction 29%. Unable to use beta ganesh, nitroglycerin, HERMINIO inhibitor, calcium channel ganesh due to low blood pressure from cardiomyopathy Lipid panel performed which did show LDL 129, continue Lipitor 20 mg daily Encephalopathy: Significantly improved. 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 Patient is much more alert EEG does show moderate encephalopathy, CT scans of the brain did not show any acute abnormality Continue monitor mental status Speech therapy, cognitive evaluation within normal limits. Regular consisting diet Visual hallucinations, resolved likely secondary to alcohol detoxing Psychiatry evaluated patient Continue Seroquel 50 mg at bedtime Elevated liver enzymes, resolved Multifactorial with patient with alcohol use, PEA cardiac arrest Follow-up liver enzymes are normal S/P Hypoxic respiratory respiratory failure, COPD exacerbation-resolved Patient intubated 07/01/16, extubated 07/03/16 Bronchodilators every 2 hours as needed, patient has not required any in 2 weeks, will discontinue at this time Patient continued on prednisone 10 mg twice daily, will discontinue that at this time Pulmonology following the patient Bibasilar airspace disease noted on chest x-ray, resolved Sputum culture with MRSA, however nasal screen for MRSA was positive also. Could be secondary to colonization Patient on Bactrim till 07/21 Patient was started on Lasix with improvement Follow-up chest x-ray shows resolution Cardiomyopathy/NSTEMI/PEA arrest/Systolic congestive heart failure/Hypotension: Status post cardiopulmonary resuscitation with return of spontaneous pulse and breathing Echo 06/30: EF 2530%, aortic valve mild regurgitation, mitral valve mild to moderate regurgitation, tricuspid valve trace to mild regurgitation, systolic function severely diminished. Echo 07/02: EF 30-35% with diffuse hypokinesis and small pericardial effusion. Cardiology was following the patient and signed off on 07/09, indicated patient stable to discharge from cardiology standpoint. Follow-up out patient setting Unable to use beta ganesh, HERMINIO inhibitor, calcium channel ganesh, nitrate, due to low blood pressure. The patient significant cardiomyopathy systolic blood pressure 8090 is appropriate as long as map is staying above 65 Discuss with cardiology who indicated patient will require evaluation for AICD and 90 days post cardiac arrest. Patient will require outpatient follow-up Atrial fibrillation with RVR, heart rate controlled Unable to use calcium channel blockers, beta blockers, amiodarone for rate control or conversion due to low blood pressure secondary to cardiomyopathy Patient started on digoxin 0.125 mg daily, monitor digoxin level Patient has had recent echocardiogram on 07/02/16 Chads score is 2 Patient anticoagulated with Eliquis Hypocalcemia/Hyponatremia/Hypokalemia/Hypomagnesemia: Resolved. Monitor and replete as needed Thrombocytopenia: Improved. No signs of bleeding. Due to alcoholism Monitor CBC DVT Prophylaxis: On Eliquis Discharge Planning Case management for discharge planning. Awaiting PT clearance for discharge Evangelist Woods August 17, 2016 13:24
[2016-08-17 20:00] VITALS: BP 120/83; PULSE 100; RESP 20; TEMP 97.7; O2SAT 98
[2016-08-17] MEDS: QUEtiapine FUMARATE 25 MG TAB PO SCH (20:19)
[2016-08-17] MEDS: ACETAMINOPHEN 325 MG TAB PO PRN (21:11)
[2016-08-18 08:00] VITALS: BP 98/68; PULSE 89; RESP 16; TEMP 96.7; O2SAT 98
[2016-08-18] MEDS: ATORVASTATIN 20 MG TAB PO SCH (08:35)
[2016-08-18] MEDS: APIXABAN 5 MG TABLET PO SCH ×2 (08:35→19:59)
[2016-08-18] MEDS: DIGOXIN 0.125 MG TAB PO SCH (08:35)
[2016-08-18] MEDS: MAGNESIUM OXIDE 400 MG TAB PO SCH ×2 (08:36→19:59)
[2016-08-18] MEDS: MULTIVITAMIN TAB PO SCH (08:36)
[2016-08-18] MEDS: THIAMINE HCL 100 MG TAB PO SCH (08:36)
--- NOTE | 2016-08-18 09:27 | RSPPFT ---
DATE OF PROCEDURE: 07/29/16 COMMENTS: Spirometry with FVC of 3.6 predicted 4.8, FEV1 of 2.3 predicted 3.9, FEV1/FVC ratio 64% predicted 81%. IMPRESSION:
--- NOTE | 2016-08-18 16:09 | HHI.PR ---
Subjective Remarks Patient evaluated this morning. Follow-up for A.Fib, heart failure, s/p PEA cardiac arrest, hypomagnesemia, chronic atypical L chest discomfort. Patient still admits to left-sided pleuritic pain occurring this morning. Denies any fevers or chills. Denies cough. Denies shortness of breath aside from after exertion which is chronic Objective Vitals Vital Signs Date Time Temp Pulse Resp B/P Pulse Ox O2 Delivery O2 Flow Rate FiO2 08/18/16 08:00 96.7 89 16 98/68 98 08/17/16 20:00 97.7 100 20 120/83 98 I/O 08/17/16 08/17/16 08/17/16 08/18/16 08/18/16 08/18/16 07:00 15:00 23:00 07:00 15:00 23:00 Intake Total 480 ml 400 ml 640 ml 1270 ml Output Total 500 ml Balance 480 ml 400 ml 140 ml 1270 ml Intake Oral 480 ml 400 ml 640 ml 1270 ml Output Urine Total 500 ml # Voids 3 3 3 # Bowel Movements 0 0 1 1 Result Diagram: 08/17/16 0437 08/17/16 0437 Objective Remarks GENERAL: Pleasant well-developed patient in no apparent distress. SKIN: Warm and dry. CHEST: No reproducible left chest wall tenderness. CARDIOVASCULAR: Regular rate. RESPIRATORY: No accessory muscle use. Clear to auscultation. Breath sounds equal bilaterally. GASTROINTESTINAL: Abdomen soft, non-tender, non-distended. NEUROLOGICAL: Awake and alert. Normal speech. PSYCHIATRIC: Appropriate mood and affect. Urinary Catheter: No Date of Insertion: Jul 01, 2016 Date of Removal: Jul 09, 2016 Vascular Central Line Catheter: No Date of Insertion: Jul 01, 2016 Date of Removal: Jul 06, 2016 A/P Problem List: (1) Atrial fibrillation with RVR ICD Code: I48.91 Status: Acute (2) PNA (pneumonia) ICD Code: J18.9 Status: Acute (3) COPD exacerbation ICD Code: J44.1 Status: Acute (4) Elevated troponin ICD Code: R74.8 Status: Acute Assessment and Plan Deconditioning Continue physical therapy on a daily basis. Walking 120 feet with FWW SBA and 20 feet unaided. Physical therapy indicates that patient may need use walker or cane upon discharge and return to prior setting which is homeless. Chest pain, atypical: persistent but stable Cardiac enzymes were performed which did not indicate any acute coronary event EKG shows atrial fibrillation with PVCs. No signs of any acute coronary event Nuclear stress test was performed which did not indicate any signs of reversible perfusion defect. However did indicate left ventricle dilation with global hypokinesis and ejection fraction 29%. Lipid panel performed which did show LDL 129, continue Lipitor 20 mg daily 08/18: Discomfort continues, pleuritic L chest. No indication of respiratory infection. HR and O2 sat good and patient on Eliquis making PE unlikely. Hypomagnesemia: Stable. Urine Mg level normal. Continue Magnesium oxide 800 mg twice daily Cardiomyopathy/NSTEMI/PEA arrest/Systolic congestive heart failure/Hypotension: Status post cardiopulmonary resuscitation with return of spontaneous pulse and breathing Echo 06/30: EF 2530%, aortic valve mild regurgitation, mitral valve mild to moderate regurgitation, tricuspid valve trace to mild regurgitation, systolic function severely diminished. Echo 07/02: EF 30-35% with diffuse hypokinesis and small pericardial effusion. Cardiology was following the patient and signed off on 07/09, indicated patient stable to discharge from cardiology standpoint. Follow-up out patient setting Discussed with cardiology who indicated patient will require evaluation for AICD at 90 days post cardiac arrest. Patient will require outpatient follow-up Unable to use beta ganesh, HERMINIO inhibitor, calcium channel ganesh, nitrate, due to low blood pressure. The patient has significant cardiomyopathy. Systolic blood pressure 8090 is appropriate as long as MAP is staying above 65. Atrial fibrillation with RVR, heart rate controlled Unable to use calcium channel blockers, beta blockers, amiodarone for rate control or conversion due to low blood pressure secondary to cardiomyopathy Continue digoxin 0.125 mg daily, monitor digoxin level. Digoxin level 0.4 on . Patient has had recent echocardiogram on 07/02/16 Chads score is 2 Patient anticoagulated with Eliquis S/P Hypoxic respiratory respiratory failure, COPD exacerbation-resolved Patient intubated 07/01/16, extubated 07/03/16 Bronchodilators every 2 hours as needed, patient has not required any in 2 weeks, will discontinue at this time Patient continued on prednisone 10 mg twice daily, will discontinue that at this time Pulmonology following the patient, PFTs performed on 08/18/16. Bibasilar airspace disease noted on chest x-ray, resolved Sputum culture with MRSA, however nasal screen for MRSA was positive also. Could be secondary to colonization Patientc was on Bactrim till 07/21 Patient was started on Lasix with improvement Follow-up chest x-ray shows resolution Encephalopathy: Significantly improved. 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 Patient is much more alert EEG does show moderate encephalopathy, CT scans of the brain did not show any acute abnormality Continue monitor mental status Speech therapy, cognitive evaluation within normal limits. Regular consisting diet Visual hallucinations, resolved likely secondary to alcohol detoxing Psychiatry evaluated patient Continue Seroquel 50 mg at bedtime Elevated liver enzymes: Improved. Multifactorial with patient with alcohol use, PEA cardiac arrest Follow-up liver enzymes are normal Hypocalcemia/Hyponatremia/Hypokalemia: Resolved. Monitor and replete as needed Thrombocytopenia: Improved. No signs of bleeding. Due to alcoholism Monitor CBC DVT Prophylaxis: On Eliquis Discharge Planning SSI initiated. PT following. Needs walker or cane upon discharge. Problem Qualifiers (1) PNA (pneumonia): Qualified Code: J18.1 - Pneumonia of right lower lobe due to infectious organism Erika Mora August 18, 2016 16:09 DVT Prophylaxis: On Eliquis Discharge Planning SSI initiated. PT following. Needs walker or cane upon discharge. Problem Qualifiers (1) PNA (pneumonia): Qualified Code: J18.1 - Pneumonia of right lower lobe due to infectious organism Erika Mora August 18, 2016 16:09
[2016-08-18] MEDS: ACETAMINOPHEN 325 MG TAB PO PRN (19:58)
[2016-08-18] MEDS: QUEtiapine FUMARATE 25 MG TAB PO SCH (19:59)
[2016-08-18 20:00] VITALS: BP 118/80; PULSE 100; RESP 21; TEMP 97.3; O2SAT 100
[2016-08-19 08:00] VITALS: BP 108/72; PULSE 87; RESP 17; TEMP 97.3; O2SAT 96
--- NOTE | 2016-08-19 08:52 | HHI.PR ---
Subjective Remarks Follow-up for A.Fib, heart failure, s/p PEA cardiac arrest, hypomagnesemia, chronic atypical L chest discomfort. Patient still had the left pleuritic pain last night but has none this morning. Objective Vitals Vital Signs Date Time Temp Pulse Resp B/P Pulse Ox O2 Delivery O2 Flow Rate FiO2 08/19/16 08:00 97.3 87 17 108/72 96 08/18/16 21:02 18 08/18/16 20:00 97.3 100 21 118/80 100 I/O 08/18/16 08/18/16 08/18/16 08/19/16 08/19/16 08/19/16 07:00 15:00 23:00 07:00 15:00 23:00 Intake Total 640 ml 1270 ml 360 ml 360 ml 100 ml Output Total 500 ml Balance 140 ml 1270 ml 360 ml 360 ml 100 ml Intake Oral 640 ml 1270 ml 360 ml 360 ml 100 ml Output Urine Total 500 ml # Voids 3 2 2 # Bowel Movements 1 1 Result Diagram: 08/17/16 0437 08/17/16 0437 Objective Remarks GENERAL: Pleasant well-developed patient in no apparent distress. SKIN: Warm and dry. CARDIOVASCULAR: Regular rate and rhythm. RESPIRATORY: No accessory muscle use. Clear to auscultation. Breath sounds equal bilaterally. GASTROINTESTINAL: Abdomen soft, non-tender, non-distended. NEUROLOGICAL: Awake and alert. Normal speech. PSYCHIATRIC: Appropriate mood and affect. Urinary Catheter: No Date of Insertion: Jul 01, 2016 Date of Removal: Jul 09, 2016 Vascular Central Line Catheter: No Date of Insertion: Jul 01, 2016 Date of Removal: Jul 06, 2016 A/P Problem List: (1) Atrial fibrillation with RVR ICD Code: I48.91 Status: Acute (2) PNA (pneumonia) ICD Code: J18.9 Status: Acute (3) COPD exacerbation ICD Code: J44.1 Status: Acute (4) Elevated troponin ICD Code: R74.8 Status: Acute Assessment and Plan Deconditioning Continue physical therapy on a daily basis. Walking 120 feet with FWW SBA and 20 feet unaided. Physical therapy indicates that patient may need use walker or cane upon discharge and return to prior setting which is homeless. Chest pain, atypical: persistent but stable Cardiac enzymes were performed which did not indicate any acute coronary event EKG shows atrial fibrillation with PVCs. No signs of any acute coronary event Nuclear stress test was performed which did not indicate any signs of reversible perfusion defect. However did indicate left ventricle dilation with global hypokinesis and ejection fraction 29%. Lipid panel performed which did show LDL 129, continue Lipitor 20 mg daily 08/19: Discomfort continues, pleuritic L chest although no pain this morning. No indication of respiratory infection. HR and O2 sat good and patient on Eliquis making PE unlikely. Hypomagnesemia: Stable. Urine Mg level normal. Continue Magnesium oxide 800 mg twice daily Cardiomyopathy/NSTEMI/PEA arrest/Systolic congestive heart failure/Hypotension: Status post cardiopulmonary resuscitation with return of spontaneous pulse and breathing Echo 06/30: EF 2530%, aortic valve mild regurgitation, mitral valve mild to moderate regurgitation, tricuspid valve trace to mild regurgitation, systolic function severely diminished. Echo 07/02: EF 30-35% with diffuse hypokinesis and small pericardial effusion. Cardiology was following the patient and signed off on 07/09, indicated patient stable to discharge from cardiology standpoint. Follow-up out patient setting Discussed with cardiology who indicated patient will require evaluation for AICD at 90 days post cardiac arrest. Patient will require outpatient follow-up Unable to use beta ganesh, HERMINIO inhibitor, calcium channel ganesh, nitrate, due to low blood pressure. The patient has significant cardiomyopathy. Systolic blood pressure 8090 is appropriate as long as MAP is staying above 65. Atrial fibrillation with RVR, heart rate controlled Unable to use calcium channel blockers, beta blockers, amiodarone for rate control or conversion due to low blood pressure secondary to cardiomyopathy Continue digoxin 0.125 mg daily, monitor digoxin level. Digoxin level 0.4 on . Patient has had recent echocardiogram on 07/02/16 Chads score is 2 Patient anticoagulated with Eliquis S/P Hypoxic respiratory respiratory failure, COPD exacerbation-resolved Patient intubated 07/01/16, extubated 07/03/16 Bronchodilators every 2 hours as needed, patient has not required any in 2 weeks, will discontinue at this time Patient continued on prednisone 10 mg twice daily, will discontinue that at this time Pulmonology following the patient, PFTs performed on 08/18/16. Bibasilar airspace disease noted on chest x-ray, resolved Sputum culture with MRSA, however nasal screen for MRSA was positive also. Could be secondary to colonization Patientc was on Bactrim till 07/21 Patient was started on Lasix with improvement Follow-up chest x-ray shows resolution Encephalopathy: Significantly improved. 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 Patient is much more alert EEG does show moderate encephalopathy, CT scans of the brain did not show any acute abnormality Continue monitor mental status Speech therapy, cognitive evaluation within normal limits. Regular consisting diet Visual hallucinations, resolved likely secondary to alcohol detoxing Psychiatry evaluated patient Continue Seroquel 50 mg at bedtime Elevated liver enzymes: Improved. Multifactorial with patient with alcohol use, PEA cardiac arrest Follow-up liver enzymes are normal Hypocalcemia/Hyponatremia/Hypokalemia: Resolved. Monitor and replete as needed Thrombocytopenia: Improved. No signs of bleeding. Due to alcoholism Monitor CBC DVT Prophylaxis: On Eliquis Discharge Planning SSI initiated. PT following. Needs walker or cane upon discharge. Problem Qualifiers (1) PNA (pneumonia): Qualified Code: J18.1 - Pneumonia of right lower lobe due to infectious organism Erika Mora August 19, 2016 08:52
[2016-08-19] MEDS: MULTIVITAMIN TAB PO SCH (09:37)
[2016-08-19] MEDS: THIAMINE HCL 100 MG TAB PO SCH (09:37)
[2016-08-19] MEDS: DIGOXIN 0.125 MG TAB PO SCH (09:37)
[2016-08-19] MEDS: MAGNESIUM OXIDE 400 MG TAB PO SCH ×2 (09:37→20:33)
[2016-08-19] MEDS: APIXABAN 5 MG TABLET PO SCH ×2 (09:37→20:32)
[2016-08-19] MEDS: ATORVASTATIN 20 MG TAB PO SCH (09:37)
[2016-08-19 20:00] VITALS: BP 121/79; PULSE 97; RESP 20; TEMP 96.9; O2SAT 100
[2016-08-19] MEDS: QUEtiapine FUMARATE 25 MG TAB PO SCH (20:32)
--- NOTE | 2016-08-20 08:25 | HHI.PR ---
Subjective Remarks Follow-up for A.Fib, heart failure, s/p PEA cardiac arrest, hypomagnesemia, chronic atypical L chest discomfort. No acute complaints this morning. Objective Vitals Vital Signs Date Time Temp Pulse Resp B/P Pulse Ox O2 Delivery O2 Flow Rate FiO2 08/19/16 20:00 96.9 97 20 121/79 100 I/O 08/19/16 08/19/16 08/19/16 08/20/16 08/20/16 08/20/16 07:00 15:00 23:00 07:00 15:00 23:00 Intake Total 360 ml 100 ml 360 ml 0 ml Balance 360 ml 100 ml 360 ml 0 ml Intake Oral 360 ml 100 ml 360 ml 0 ml # Voids 2 5 2 Result Diagram: 08/17/1643608/[id number]/16436 Objective Remarks GENERAL: Pleasant well-developed patient in no apparent distress. SKIN: Warm and dry. CARDIOVASCULAR: Tachycardic. Irregularly irregular rhythm. RESPIRATORY: No accessory muscle use. Clear to auscultation. Breath sounds equal bilaterally. GASTROINTESTINAL: Abdomen soft, non-tender, non-distended. NEUROLOGICAL: Awake and alert. Normal speech. PSYCHIATRIC: Appropriate mood and affect. Urinary Catheter: No Date of Insertion: Jul 01, 2016 Date of Removal: Jul 09, 2016 Vascular Central Line Catheter: No Date of Insertion: Jul 01, 2016 Date of Removal: Jul 06, 2016 A/P Problem List: (1) Atrial fibrillation with RVR ICD Code: I48.91 Status: Acute (2) PNA (pneumonia) ICD Code: J18.9 Status: Acute (3) COPD exacerbation ICD Code: J44.1 Status: Acute (4) Elevated troponin ICD Code: R74.8 Status: Acute Assessment and Plan Deconditioning Continue physical therapy on a daily basis. Walking 120 feet with FWW SBA and 20 feet unaided. Physical therapy indicates that patient may need use walker or cane upon discharge and return to prior setting which is homeless. Chest pain, atypical: persistent but stable Cardiac enzymes were performed which did not indicate any acute coronary event EKG shows atrial fibrillation with PVCs. No signs of any acute coronary event Nuclear stress test was performed which did not indicate any signs of reversible perfusion defect. However did indicate left ventricle dilation with global hypokinesis and ejection fraction 29%. Lipid panel performed which did show LDL 129, continue Lipitor 20 mg daily Hypomagnesemia: Stable. Urine Mg level normal. Continue Magnesium oxide 800 mg twice daily Cardiomyopathy/NSTEMI/PEA arrest/Systolic congestive heart failure/Hypotension: Status post cardiopulmonary resuscitation with return of spontaneous pulse and breathing Echo 06/30: EF 2530%, aortic valve mild regurgitation, mitral valve mild to moderate regurgitation, tricuspid valve trace to mild regurgitation, systolic function severely diminished. Echo 07/02: EF 30-35% with diffuse hypokinesis and small pericardial effusion. Cardiology was following the patient and signed off on 07/09, indicated patient stable to discharge from cardiology standpoint. Follow-up out patient setting Discussed with cardiology who indicated patient will require evaluation for AICD at 90 days post cardiac arrest. Patient will require outpatient follow-up Unable to use beta ganesh, HERMINIO inhibitor, calcium channel ganesh, nitrate, due to low blood pressure. The patient has significant cardiomyopathy. Systolic blood pressure 8090 is appropriate as long as MAP is staying above 65. Atrial fibrillation with RVR, heart rate controlled Unable to use calcium channel blockers, beta blockers, amiodarone for rate control or conversion due to low blood pressure secondary to cardiomyopathy Continue digoxin 0.125 mg daily, monitor digoxin level. Digoxin level 0.4 on . Patient has had recent echocardiogram on 07/02/16 Chads score is 2 Patient anticoagulated with Eliquis S/P Hypoxic respiratory respiratory failure, COPD exacerbation-resolved Patient intubated 07/01/16, extubated 07/03/16 Bronchodilators every 2 hours as needed, patient has not required any in 2 weeks, will discontinue at this time Patient continued on prednisone 10 mg twice daily, will discontinue that at this time Pulmonology following the patient, PFTs performed on 08/18/16. Bibasilar airspace disease noted on chest x-ray, resolved Sputum culture with MRSA, however nasal screen for MRSA was positive also. Could be secondary to colonization Patientc was on Bactrim till 07/21 Patient was started on Lasix with improvement Follow-up chest x-ray shows resolution Encephalopathy: Significantly improved. 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 Patient is much more alert EEG does show moderate encephalopathy, CT scans of the brain did not show any acute abnormality Continue monitor mental status Speech therapy, cognitive evaluation within normal limits. Regular consisting diet Visual hallucinations, resolved likely secondary to alcohol detoxing Psychiatry evaluated patient Continue Seroquel 50 mg at bedtime Elevated liver enzymes: Improved. Multifactorial with patient with alcohol use, PEA cardiac arrest Follow-up liver enzymes are normal Hypocalcemia/Hyponatremia/Hypokalemia: Resolved. Monitor and replete as needed Thrombocytopenia: Improved. No signs of bleeding. Due to alcoholism Monitor CBC DVT Prophylaxis: On Eliquis Discharge Planning SSI initiated. PT following. Needs walker or cane upon discharge. Problem Qualifiers (1) PNA (pneumonia): Qualified Code: J18.1 - Pneumonia of right lower lobe due to infectious organism Erika Mora August 20, 2016 08:25
[2016-08-20] MEDS: MAGNESIUM OXIDE 400 MG TAB PO SCH ×2 (10:46→21:37)
[2016-08-20] MEDS: APIXABAN 5 MG TABLET PO SCH ×2 (10:46→21:37)
[2016-08-20] MEDS: THIAMINE HCL 100 MG TAB PO SCH (10:46)
[2016-08-20] MEDS: DIGOXIN 0.125 MG TAB PO SCH (10:46)
[2016-08-20] MEDS: MULTIVITAMIN TAB PO SCH (10:46)
[2016-08-20] MEDS: ATORVASTATIN 20 MG TAB PO SCH (10:47)
[2016-08-20 11:15] VITALS: BP 106/78; PULSE 80; RESP 15; TEMP 96.5; O2SAT 98
[2016-08-20] MEDS: ACETAMINOPHEN 325 MG TAB PO PRN (12:46)
[2016-08-20 20:00] VITALS: BP 113/76; PULSE 95; RESP 16; TEMP 98.5; O2SAT 98
[2016-08-20] MEDS: QUEtiapine FUMARATE 25 MG TAB PO SCH (21:37)
[2016-08-21] MEDS: MULTIVITAMIN TAB PO SCH (08:12)
[2016-08-21] MEDS: ATORVASTATIN 20 MG TAB PO SCH (08:12)
[2016-08-21] MEDS: MAGNESIUM OXIDE 400 MG TAB PO SCH ×2 (08:12→21:11)
[2016-08-21] MEDS: DIGOXIN 0.125 MG TAB PO SCH (08:13)
[2016-08-21] MEDS: THIAMINE HCL 100 MG TAB PO SCH (08:13)
[2016-08-21] MEDS: APIXABAN 5 MG TABLET PO SCH ×2 (08:13→21:10)
[2016-08-21 08:29] VITALS: BP 98/70; PULSE 89; RESP 18; TEMP 95.8; O2SAT 98
--- NOTE | 2016-08-21 09:31 | HHI.PR ---
Subjective Remarks Follow-up for A.Fib, heart failure, s/p PEA cardiac arrest, hypomagnesemia, chronic atypical L chest discomfort. No acute complaints this morning. Objective Vitals Vital Signs Date Time Temp Pulse Resp B/P Pulse Ox O2 Delivery O2 Flow Rate FiO2 08/21/16 08:29 95.8 89 18 98/70 98 08/20/16 20:00 98.5 95 16 113/76 98 08/20/16 11:15 96.5 80 15 106/78 98 I/O 08/20/16 08/20/16 08/20/16 08/21/16 08/21/16 08/21/16 07:00 15:00 23:00 07:00 15:00 23:00 Intake Total 0 ml 2220 ml 480 ml Balance 0 ml 2220 ml 480 ml Intake Oral 0 ml 2220 ml 480 ml # Voids 2 7 2 # Bowel Movements 3 0 Result Diagram: 08/17/16 0437 08/17/16 0437 Objective Remarks GENERAL: Pleasant well-developed patient in no apparent distress. SKIN: Warm and dry. CARDIOVASCULAR: Normal rate. Irregularly irregular rhythm. RESPIRATORY: No accessory muscle use. Clear to auscultation. Breath sounds equal bilaterally. GASTROINTESTINAL: Abdomen soft, non-tender, non-distended. NEUROLOGICAL: Awake and alert. Normal speech. PSYCHIATRIC: Appropriate mood and affect. Urinary Catheter: No Date of Insertion: Jul 01, 2016 Date of Removal: Jul 09, 2016 Vascular Central Line Catheter: No Date of Insertion: Jul 01, 2016 Date of Removal: Jul 06, 2016 A/P Problem List: (1) Atrial fibrillation with RVR ICD Code: I48.91 Status: Acute (2) PNA (pneumonia) ICD Code: J18.9 Status: Acute (3) COPD exacerbation ICD Code: J44.1 Status: Acute (4) Elevated troponin ICD Code: R74.8 Status: Acute Assessment and Plan Deconditioning Continue physical therapy on a daily basis. Physical therapy indicates that patient may need use walker or cane upon discharge and return to prior setting which is homeless. Chest pain, atypical: persistent but stable Cardiac enzymes were performed which did not indicate any acute coronary event EKG shows atrial fibrillation with PVCs. No signs of any acute coronary event Nuclear stress test was performed which did not indicate any signs of reversible perfusion defect. However did indicate left ventricle dilation with global hypokinesis and ejection fraction 29%. Unlikely to be PE as patient is on Eliquis, O2 saturation is normal, and pain comes and goes. Lipid panel performed which did show LDL 129, continue Lipitor 20 mg daily Hypomagnesemia: Stable. Urine Mg level normal. Continue Magnesium oxide 800 mg twice daily Cardiomyopathy/NSTEMI/PEA arrest/Systolic congestive heart failure/Hypotension: Status post cardiopulmonary resuscitation with return of spontaneous pulse and breathing Echo 06/30: EF 2530%, aortic valve mild regurgitation, mitral valve mild to moderate regurgitation, tricuspid valve trace to mild regurgitation, systolic function severely diminished. Echo 07/02: EF 30-35% with diffuse hypokinesis and small pericardial effusion. Cardiology was following the patient and signed off on 07/09, indicated patient stable to discharge from cardiology standpoint. Follow-up out patient setting Discussed with cardiology who indicated patient will require evaluation for AICD at 90 days post cardiac arrest. Patient will require outpatient follow-up Unable to use beta ganesh, HERMINIO inhibitor, calcium channel ganesh, nitrate, due to low blood pressure. The patient has significant cardiomyopathy. Systolic blood pressure 8090 is appropriate as long as MAP is staying above 65. BP has recently improved although again low at 98/70, but MAP is intact. Atrial fibrillation with RVR, heart rate controlled Unable to use calcium channel blockers, beta blockers, amiodarone for rate control or conversion due to low blood pressure secondary to cardiomyopathy Continue digoxin 0.125 mg daily, monitor digoxin level. Digoxin level 0.4 on . Patient has had recent echocardiogram on 07/02/16 Chads score is 2 Patient anticoagulated with Eliquis S/P Hypoxic respiratory respiratory failure, COPD exacerbation-resolved Patient intubated 07/01/16, extubated 07/03/16 Bronchodilators every 2 hours as needed, patient has not required any in 2 weeks, will discontinue at this time Patient continued on prednisone 10 mg twice daily, will discontinue that at this time Pulmonology following the patient, PFTs performed on 08/18/16. Bibasilar airspace disease noted on chest x-ray, resolved Sputum culture with MRSA, however nasal screen for MRSA was positive also. Could be secondary to colonization Patientc was on Bactrim till 07/21 Patient was started on Lasix with improvement Follow-up chest x-ray shows resolution Encephalopathy: Significantly improved. 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 Patient is much more alert EEG does show moderate encephalopathy, CT scans of the brain did not show any acute abnormality Continue monitor mental status Speech therapy, cognitive evaluation within normal limits. Regular consisting diet Visual hallucinations, resolved likely secondary to alcohol detoxing Psychiatry evaluated patient Continue Seroquel 50 mg at bedtime Elevated liver enzymes: Improved. Multifactorial with patient with alcohol use, PEA cardiac arrest Follow-up liver enzymes are normal Hypocalcemia/Hyponatremia/Hypokalemia: Resolved. Monitor and replete as needed Thrombocytopenia: Improved. No signs of bleeding. Due to alcoholism Monitor CBC DVT Prophylaxis: On Eliquis Discharge Planning SSI initiated. PT following, awaiting clearance for discharge. Needs walker or cane upon discharge. Problem Qualifiers (1) PNA (pneumonia): Qualified Code: J18.1 - Pneumonia of right lower lobe due to infectious organism Erika Mora August 21, 2016 09:31
[2016-08-21 20:00] VITALS: BP 118/81; PULSE 95; RESP 18; TEMP 97.6; O2SAT 99
[2016-08-21] MEDS: QUEtiapine FUMARATE 25 MG TAB PO SCH (21:11)
[2016-08-22 08:00] VITALS: BP 121/80; PULSE 93; RESP 18; TEMP 97.3; O2SAT 97
[2016-08-22] MEDS: ATORVASTATIN 20 MG TAB PO SCH (09:22)
[2016-08-22] MEDS: APIXABAN 5 MG TABLET PO SCH ×2 (09:22→20:23)
[2016-08-22] MEDS: DIGOXIN 0.125 MG TAB PO SCH (09:22)
[2016-08-22] MEDS: THIAMINE HCL 100 MG TAB PO SCH (09:22)
[2016-08-22] MEDS: MULTIVITAMIN TAB PO SCH (09:22)
[2016-08-22] MEDS: MAGNESIUM OXIDE 400 MG TAB PO SCH ×2 (09:23→20:23)
--- NOTE | 2016-08-22 10:11 | HHI.PR ---
Subjective Remarks Follow-up for A.Fib, heart failure, s/p PEA cardiac arrest, hypomagnesemia, chronic atypical L chest discomfort. No acute complaints this morning. Still working on his endurance with PT. Objective Vitals Vital Signs Date Time Temp Pulse Resp B/P Pulse Ox O2 Delivery O2 Flow Rate FiO2 08/22/16 08:00 97.3 93 18 121/80 97 08/21/16 20:00 97.6 95 18 118/81 99 I/O 08/21/16 08/21/16 08/21/16 08/22/16 08/22/16 08/22/16 07:00 15:00 23:00 07:00 15:00 23:00 Intake Total 480 ml 1180 ml 480 ml Balance 480 ml 1180 ml 480 ml Intake Oral 480 ml 1180 ml 480 ml # Voids 2 8 2 # Bowel Movements 0 2 0 Objective Remarks GENERAL: Pleasant well-developed patient in no apparent distress. SKIN: Warm and dry. CARDIOVASCULAR: Normal rate. RESPIRATORY: No accessory muscle use. Clear to auscultation. Breath sounds equal bilaterally. GASTROINTESTINAL: Abdomen soft, non-tender, non-distended. NEUROLOGICAL: Awake and alert. Normal speech. PSYCHIATRIC: Appropriate mood and affect. Urinary Catheter: No Date of Insertion: Jul 01, 2016 Date of Removal: Jul 09, 2016 Vascular Central Line Catheter: No Date of Insertion: Jul 01, 2016 Date of Removal: Jul 06, 2016 A/P Problem List: (1) Atrial fibrillation with RVR ICD Code: I48.91 Status: Acute (2) PNA (pneumonia) ICD Code: J18.9 Status: Acute (3) COPD exacerbation ICD Code: J44.1 Status: Acute (4) Elevated troponin ICD Code: R74.8 Status: Acute Assessment and Plan Deconditioning Continue physical therapy on a daily basis. Physical therapy indicates that patient may need use walker or cane upon discharge and return to prior setting which is homeless. Chest pain, atypical: persistent but stable Cardiac enzymes were performed which did not indicate any acute coronary event EKG shows atrial fibrillation with PVCs. No signs of any acute coronary event Nuclear stress test was performed which did not indicate any signs of reversible perfusion defect. However did indicate left ventricle dilation with global hypokinesis and ejection fraction 29%. Unlikely to be PE as patient is on Eliquis, O2 saturation is normal, and pain comes and goes. Lipid panel performed which did show LDL 129, continue Lipitor 20 mg daily Hypomagnesemia: Stable. Urine Mg level normal. Continue Magnesium oxide 800 mg twice daily Cardiomyopathy/NSTEMI/PEA arrest/Systolic congestive heart failure/Hypotension: Status post cardiopulmonary resuscitation with return of spontaneous pulse and breathing Echo 06/30: EF 2530%, aortic valve mild regurgitation, mitral valve mild to moderate regurgitation, tricuspid valve trace to mild regurgitation, systolic function severely diminished. Echo 07/02: EF 30-35% with diffuse hypokinesis and small pericardial effusion. Cardiology was following the patient and signed off on 07/09, indicated patient stable to discharge from cardiology standpoint. Follow-up out patient setting Discussed with cardiology who indicated patient will require evaluation for AICD at 90 days post cardiac arrest. Patient will require outpatient follow-up Unable to use beta ganesh, HERMINIO inhibitor, calcium channel ganesh, nitrate, due to low blood pressure. The patient has significant cardiomyopathy. Systolic blood pressure 8090 is appropriate as long as MAP is staying above 65. Still intermittently hypotensive but BP has generally improved, 121/80 this morning. Atrial fibrillation with RVR, heart rate controlled Unable to use calcium channel blockers, beta blockers, amiodarone for rate control or conversion due to low blood pressure secondary to cardiomyopathy Continue digoxin 0.125 mg daily, monitor digoxin level. Digoxin level 0.4 on . Patient has had recent echocardiogram on 07/02/16 Chads score is 2 Patient anticoagulated with Eliquis S/P Hypoxic respiratory respiratory failure, COPD exacerbation-resolved Patient intubated 07/01/16, extubated 07/03/16 Bronchodilators every 2 hours as needed, patient has not required any in 2 weeks, will discontinue at this time Patient continued on prednisone 10 mg twice daily, will discontinue that at this time Pulmonology following the patient, PFTs performed on 08/18/16. Bibasilar airspace disease noted on chest x-ray, resolved Sputum culture with MRSA, however nasal screen for MRSA was positive also. Could be secondary to colonization Patientc was on Bactrim till 07/21 Patient was started on Lasix with improvement Follow-up chest x-ray shows resolution Hypoxic encephalopathy secondary to cardiac arrest, alcohol dependency: Resolved. EEG does show moderate encephalopathy, CT scans of the brain did not show any acute abnormality Continue monitor mental status Speech therapy, cognitive evaluation within normal limits. Regular consisting diet Visual hallucinations, resolved likely secondary to alcohol detoxing Psychiatry evaluated patient Continue Seroquel 50 mg at bedtime Elevated liver enzymes: Improved. Multifactorial with patient with alcohol use, PEA cardiac arrest Follow-up liver enzymes are normal Hypocalcemia/Hyponatremia/Hypokalemia: Resolved. Monitor and replete as needed Thrombocytopenia: Improved. No signs of bleeding. Due to alcoholism Monitor CBC DVT Prophylaxis: On Eliquis Discharge Planning SSI initiated. PT following, awaiting clearance for discharge. Needs walker or cane upon discharge. Problem Qualifiers (1) PNA (pneumonia): Qualified Code: J18.1 - Pneumonia of right lower lobe due to infectious organism Erika Mora August 22, 2016 10:11 Erika Mora August 22, 2016 10:11
[2016-08-22 20:00] VITALS: BP 135/85; PULSE 94; RESP 21; TEMP 97.8; O2SAT 100
[2016-08-22] MEDS: QUEtiapine FUMARATE 25 MG TAB PO SCH (20:23)
[2016-08-23 08:00] VITALS: BP 112/94; PULSE 80; RESP 21; TEMP 97.3; O2SAT 100
[2016-08-23] MEDS: DIGOXIN 0.125 MG TAB PO SCH (08:12)
[2016-08-23] MEDS: APIXABAN 5 MG TABLET PO SCH ×2 (08:12→20:25)
[2016-08-23] MEDS: MAGNESIUM OXIDE 400 MG TAB PO SCH ×2 (08:12→20:26)
[2016-08-23] MEDS: MULTIVITAMIN TAB PO SCH (08:12)
[2016-08-23] MEDS: ATORVASTATIN 20 MG TAB PO SCH (08:12)
[2016-08-23] MEDS: THIAMINE HCL 100 MG TAB PO SCH (08:14)
--- NOTE | 2016-08-23 10:21 | HHI.PR ---
Subjective Remarks Follow-up for A.Fib, heart failure, s/p PEA cardiac arrest, hypomagnesemia, chronic atypical L chest discomfort. Admits to having trouble sleeping, stating he did not fall asleep till 4am. Objective Vitals Vital Signs Date Time Temp Pulse Resp B/P Pulse Ox O2 Delivery O2 Flow Rate FiO2 08/23/16 08:00 97.3 80 21 112/94 100 08/22/16 20:00 97.8 94 21 135/85 100 I/O 08/22/16 08/22/16 08/22/16 08/23/16 08/23/16 08/23/16 07:00 15:00 23:00 07:00 15:00 23:00 Intake Total 480 ml 240 ml 240 ml Balance 480 ml 240 ml 240 ml Intake Oral 480 ml 240 ml 240 ml # Voids 2 8 2 # Bowel Movements 0 Objective Remarks GENERAL: Pleasant well-developed patient in no apparent distress. SKIN: Warm and dry. CARDIOVASCULAR: Normal rate, irregularly irregular rhythm. RESPIRATORY: No accessory muscle use. Clear to auscultation. Breath sounds equal bilaterally. GASTROINTESTINAL: Abdomen soft, non-tender, non-distended. MUSCULOSKELETAL: No lower extremity edema bilaterally. NEUROLOGICAL: Awake and alert. Normal speech. PSYCHIATRIC: Appropriate mood and affect. Urinary Catheter: No Date of Insertion: Jul 01, 2016 Date of Removal: Jul 09, 2016 Vascular Central Line Catheter: No Date of Insertion: Jul 01, 2016 Date of Removal: Jul 06, 2016 A/P Problem List: (1) Atrial fibrillation with RVR ICD Code: I48.91 Status: Acute (2) PNA (pneumonia) ICD Code: J18.9 Status: Acute (3) COPD exacerbation ICD Code: J44.1 Status: Acute (4) Elevated troponin ICD Code: R74.8 Status: Acute (5) Insomnia ICD Code: G47.00 Status: Acute Assessment and Plan Deconditioning Continue physical therapy on a daily basis. Physical therapy indicates that patient may need use walker or cane upon discharge and return to prior setting which is homeless. Insomnia: Patient takes only low dose Seroquel at night. Do not want to increase this for insomnia. Will start on Benadryl 25 mg prn hs. Chest pain, atypical: persistent but stable Cardiac enzymes were performed which did not indicate any acute coronary event EKG shows atrial fibrillation with PVCs. No signs of any acute coronary event Nuclear stress test was performed which did not indicate any signs of reversible perfusion defect. However did indicate left ventricle dilation with global hypokinesis and ejection fraction 29%. Unlikely to be PE as patient is on Eliquis, O2 saturation is normal, and pain comes and goes. Lipid panel performed which did show LDL 129, continue Lipitor 20 mg daily Hypomagnesemia: Stable. Urine Mg level normal. Continue Magnesium oxide 800 mg twice daily Cardiomyopathy/NSTEMI/PEA arrest/Systolic congestive heart failure/Hypotension: Status post cardiopulmonary resuscitation with return of spontaneous pulse and breathing Echo 06/30: EF 2530%, aortic valve mild regurgitation, mitral valve mild to moderate regurgitation, tricuspid valve trace to mild regurgitation, systolic function severely diminished. Echo 07/02: EF 30-35% with diffuse hypokinesis and small pericardial effusion. Cardiology was following the patient and signed off on 07/09, indicated patient stable to discharge from cardiology standpoint. Follow-up out patient setting Discussed with cardiology who indicated patient will require evaluation for AICD at 90 days post cardiac arrest. Patient will require outpatient follow-up Unable to use beta ganesh, HERMINIO inhibitor, calcium channel ganesh, nitrate, due to low blood pressure. The patient has significant cardiomyopathy. Systolic blood pressure 8090 is appropriate as long as MAP is staying above 65.BP has generally improved, but still intermittently hypotensive. Atrial fibrillation with RVR, heart rate controlled Unable to use calcium channel blockers, beta blockers, amiodarone for rate control or conversion due to low blood pressure secondary to cardiomyopathy Continue digoxin 0.125 mg daily, monitor digoxin level. Digoxin level 0.4 on . Patient has had recent echocardiogram on 07/02/16 Chads score is 2 Patient anticoagulated with Eliquis S/P Hypoxic respiratory respiratory failure, COPD exacerbation-resolved Patient intubated 07/01/16, extubated 07/03/16 Bronchodilators every 2 hours as needed, patient has not required any in 2 weeks, will discontinue at this time Patient continued on prednisone 10 mg twice daily, will discontinue that at this time Pulmonology following the patient, PFTs performed on 08/18/16. Bibasilar airspace disease noted on chest x-ray, resolved Sputum culture with MRSA, however nasal screen for MRSA was positive also. Could be secondary to colonization Patientc was on Bactrim till 07/21 Patient was started on Lasix with improvement Follow-up chest x-ray shows resolution Hypoxic encephalopathy secondary to cardiac arrest, alcohol dependency: Resolved. EEG does show moderate encephalopathy, CT scans of the brain did not show any acute abnormality Continue monitor mental status Speech therapy, cognitive evaluation within normal limits. Regular consisting diet Visual hallucinations, resolved likely secondary to alcohol detoxification Psychiatry evaluated patient Continue Seroquel 25 mg at bedtime Elevated liver enzymes: Improved. Multifactorial with patient with alcohol use, PEA cardiac arrest Follow-up liver enzymes are normal Hypocalcemia/Hyponatremia/Hypokalemia: Resolved. Monitor and replete as needed Thrombocytopenia: Improved. No signs of bleeding. Due to alcoholism Monitor CBC DVT Prophylaxis: On Eliquis Discharge Planning SSI initiated. PT following, awaiting clearance for discharge. Needs walker or cane upon discharge. Problem Qualifiers (1) PNA (pneumonia): Qualified Code: J18.1 - Pneumonia of right lower lobe due to infectious organism Erika Mora August 23, 2016 10:21
[2016-08-23] MEDS: QUEtiapine FUMARATE 25 MG TAB PO SCH (20:25)
[2016-08-23 21:30] VITALS: BP 138/85; PULSE 90; RESP 18; TEMP 98.2; O2SAT 97
[2016-08-24] MEDS: diphenhydrAMINE HCL 25 MG CAP PO PRN ×2 (00:13→23:56)
[2016-08-24 08:00] VITALS: BP 100/68; PULSE 89; RESP 18; TEMP 97.8; O2SAT 96
[2016-08-24] MEDS: DIGOXIN 0.125 MG TAB PO SCH (08:49)
[2016-08-24] MEDS: ATORVASTATIN 20 MG TAB PO SCH (08:50)
[2016-08-24] MEDS: APIXABAN 5 MG TABLET PO SCH ×2 (08:50→21:39)
[2016-08-24] MEDS: MULTIVITAMIN TAB PO SCH (08:50)
[2016-08-24] MEDS: MAGNESIUM OXIDE 400 MG TAB PO SCH ×2 (08:50→21:39)
[2016-08-24] MEDS: THIAMINE HCL 100 MG TAB PO SCH (08:50)
--- NOTE | 2016-08-24 10:27 | HHI.PR ---
Subjective Remarks Follow-up for A.Fib, heart failure, s/p PEA cardiac arrest, hypomagnesemia, chronic atypical L chest discomfort. Patient states the Benadryl helped with his insomnia although he still stayed up late watching a baseball game. He still admits to the left chest discomfort this morning, but has none currently. Again admits to an "electric feeling" in a tangirnaq around his left chest which has been an ongoing issue. He states the discomfort did not even last a few minutes. Objective Vitals Vital Signs Date Time Temp Pulse Resp B/P Pulse Ox O2 Delivery O2 Flow Rate FiO2 08/24/16 08:00 97.8 89 18 100/68 96 08/23/16 21:30 98.2 90 18 138/85 97 I/O 08/23/16 08/23/16 08/23/16 08/24/16 08/24/16 08/24/16 06:59 14:59 22:59 06:59 14:59 22:59 Intake Total 240 ml 1050 ml 0 ml Balance 240 ml 1050 ml 0 ml Intake Oral 240 ml 1050 ml IV Total 0 ml 0 ml # Voids 2 6 # Bowel Movements 2 Objective Remarks GENERAL: Pleasant well-developed patient in no apparent distress. CARDIOVASCULAR: Normal rate. RESPIRATORY: No accessory muscle use. Clear to auscultation. Breath sounds equal bilaterally. GASTROINTESTINAL: Abdomen soft, non-tender, non-distended. NEUROLOGICAL: Awake and alert. Normal speech. PSYCHIATRIC: Appropriate mood and affect. Urinary Catheter: No Date of Insertion: Jul 01, 2016 Date of Removal: Jul 09, 2016 Vascular Central Line Catheter: No Date of Insertion: Jul 01, 2016 Date of Removal: Jul 06, 2016 A/P Problem List: (1) Atrial fibrillation with RVR ICD Code: I48.91 Status: Acute (2) PNA (pneumonia) ICD Code: J18.9 Status: Acute (3) COPD exacerbation ICD Code: J44.1 Status: Acute (4) Elevated troponin ICD Code: R74.8 Status: Acute (5) Insomnia ICD Code: G47.00 Status: Acute Assessment and Plan Deconditioning Continue physical therapy on a daily basis. Physical therapy indicates that patient may need use walker or cane upon discharge and return to prior setting which is homeless. Insomnia: Improving. -Takes low dose seroquel -Benadryl 25 mg prn hs started on 08/23. Patient advised to turn off the tv when he goes to bed. Chest pain, atypical: persistent but stable Cardiac enzymes were performed which did not indicate any acute coronary event EKG shows atrial fibrillation with PVCs. No signs of any acute coronary event Nuclear stress test was performed which did not indicate any signs of reversible perfusion defect. However did indicate left ventricle dilation with global hypokinesis and ejection fraction 29%. Unlikely to be PE as patient is on Eliquis, O2 saturation is normal, and pain comes and goes. No new respiratory symptoms. Lipid panel performed which did show LDL 129, continue Lipitor 20 mg daily Hypomagnesemia: Stable. Urine Mg level normal. Continue Magnesium oxide 800 mg twice daily Cardiomyopathy/NSTEMI/PEA arrest/Systolic congestive heart failure/Hypotension: Status post cardiopulmonary resuscitation with return of spontaneous pulse and breathing Echo 06/30: EF 2530%, aortic valve mild regurgitation, mitral valve mild to moderate regurgitation, tricuspid valve trace to mild regurgitation, systolic function severely diminished. Echo 07/02: EF 30-35% with diffuse hypokinesis and small pericardial effusion. Cardiology was following the patient and signed off on 07/09, indicated patient stable to discharge from cardiology standpoint. Follow-up out patient setting Discussed with cardiology who indicated patient will require evaluation for AICD at 90 days post cardiac arrest. Patient will require outpatient follow-up Unable to use beta ganesh, HERMINIO inhibitor, calcium channel ganesh, nitrate, due to low blood pressure. The patient has significant cardiomyopathy. Systolic blood pressure 8090 is appropriate as long as MAP is staying above 65.BP has generally improved, but still intermittently hypotensive. Atrial fibrillation with RVR, heart rate controlled Unable to use calcium channel blockers, beta blockers, amiodarone for rate control or conversion due to low blood pressure secondary to cardiomyopathy Continue digoxin 0.125 mg daily, monitor digoxin level. Digoxin level 0.4 on . Patient has had recent echocardiogram on 07/02/16 Chads score is 2 Patient anticoagulated with Eliquis S/P Hypoxic respiratory respiratory failure, COPD exacerbation-resolved Patient intubated 07/01/16, extubated 07/03/16 Bronchodilators every 2 hours as needed, patient has not required any in 2 weeks, will discontinue at this time Patient continued on prednisone 10 mg twice daily, will discontinue that at this time Pulmonology following the patient, PFTs performed on 08/18/16. Bibasilar airspace disease noted on chest x-ray, resolved Sputum culture with MRSA, however nasal screen for MRSA was positive also. Could be secondary to colonization Patientc was on Bactrim till 07/21 Patient was started on Lasix with improvement Follow-up chest x-ray shows resolution Hypoxic encephalopathy secondary to cardiac arrest, alcohol dependency: Resolved. EEG does show moderate encephalopathy, CT scans of the brain did not show any acute abnormality Continue monitor mental status Speech therapy, cognitive evaluation within normal limits. Regular consisting diet Visual hallucinations, resolved likely secondary to alcohol detoxification Psychiatry evaluated patient Continue Seroquel 25 mg at bedtime Elevated liver enzymes: Improved. Multifactorial with patient with alcohol use, PEA cardiac arrest Follow-up liver enzymes are normal Hypocalcemia/Hyponatremia/Hypokalemia: Resolved. Monitor and replete as needed Thrombocytopenia: Improved. No signs of bleeding. Due to alcoholism Monitor CBC DVT Prophylaxis: On Eliquis Discharge Planning SSI initiated. PT following, awaiting clearance for discharge. Needs walker or cane upon discharge. Problem Qualifiers (1) PNA (pneumonia): Qualified Code: J18.1 - Pneumonia of right lower lobe due to infectious organism Erika Mora August 24, 2016 10:27
[2016-08-24 20:00] VITALS: BP 108/78; PULSE 102; RESP 20; TEMP 98.3; O2SAT 98
[2016-08-24] MEDS: QUEtiapine FUMARATE 25 MG TAB PO SCH (21:39)
[2016-08-25] MEDS: ATORVASTATIN 20 MG TAB PO SCH (07:36)
[2016-08-25] MEDS: THIAMINE HCL 100 MG TAB PO SCH (07:37)
[2016-08-25] MEDS: DIGOXIN 0.125 MG TAB PO SCH (07:37)
[2016-08-25] MEDS: MAGNESIUM OXIDE 400 MG TAB PO SCH ×2 (07:37→22:05)
[2016-08-25] MEDS: MULTIVITAMIN TAB PO SCH (07:37)
[2016-08-25] MEDS: APIXABAN 5 MG TABLET PO SCH ×2 (07:38→22:04)
[2016-08-25 08:00] VITALS: BP 110/88; PULSE 79; RESP 17; TEMP 97.8; O2SAT 96
--- NOTE | 2016-08-25 11:01 | HHI.PR ---
Subjective Remarks Patient seen and examined today in follow-up for PEA cardiac arrest, weakness. Patient denies any new complaints. Still having intermittent chest discomfort which has been worked up and ruled out for any acute process. Patient states that he is sleeping better when using Benadryl at night. Objective Vitals Vital Signs Date Time Temp Pulse Resp B/P Pulse Ox O2 Delivery O2 Flow Rate FiO2 08/25/16 08:00 97.8 79 17 110/88 96 08/24/16 20:00 98.3 102 20 108/78 98 I/O 08/24/16 08/24/16 08/24/16 08/25/16 08/25/16 08/25/16 06:59 14:59 22:59 06:59 14:59 22:59 Intake Total 0 ml 240 ml 240 ml Balance 0 ml 240 ml 240 ml Intake Oral 240 ml 240 ml IV Total 0 ml # Voids 3 2 2 # Bowel Movements 0 1 Objective Remarks GENERAL: Well-developed, well-nourished, in no acute distress. alert and orientated to person, month, place, current events HEENT: Head is normocephalic without any lesions or masses noted. Facial features are symmetric. Eyes: Extraocular muscles are intact. Conjunctivae were clear. NECK: Supple without any masses. Trachea midline no deviation. No JVD, CARDIAC: Regular rhythm, regular rate. S1/S2 are heard. No murmurs gallops or rubs. LUNGS: Clear to auscultation bilaterally. No wheeze, rhonchi or rales. No use of accessory muscles on inspiration or expiration. ABDOMEN: Soft, nontender. Nondistended. Bowel sounds heard in all 4 quadrants. No organomegaly or masses. Negative rebound, negative guarding EXTREMITIES: No edema, pulses are equal bilaterally. No cyanosis or clubbing NEUROLOGY: Mood and affect appear appropriate. Cranial nerves II through XII grossly intact. Moving all extremities, speech is clear Urinary Catheter: No Date of Insertion: Jul 01, 2016 Date of Removal: Jul 09, 2016 Vascular Central Line Catheter: No Date of Insertion: Jul 01, 2016 Date of Removal: Jul 06, 2016 A/P Assessment and Plan Deconditioning Continue physical therapy on a daily basis. Physical therapy indicates that patient may need use walker or cane upon discharge. Other prior setting which is homeless. Patient is walking 260 feet slowly with standby assist. No change in discharge recommendations Hypomagnesemia, corrected Magnesium oxide 800 mg twice daily Chest pain, atypical: Resolved Cardiac enzymes were performed which did not indicate any acute coronary event EKG shows atrial fibrillation with PVCs. No signs of any acute coronary event Nuclear stress test was performed which did not indicate any signs of reversible perfusion defect. However did indicate left ventricle dilation with global hypokinesis and ejection fraction 29%. Unable to use beta ganesh, nitroglycerin, HERMINIO inhibitor, calcium channel ganesh due to low blood pressure from cardiomyopathy Lipid panel performed which did show LDL 129, continue Lipitor 20 mg daily Encephalopathy: Significantly improved. 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 Patient is much more alert EEG does show moderate encephalopathy, CT scans of the brain did not show any acute abnormality Continue monitor mental status Speech therapy, cognitive evaluation within normal limits. Regular consisting diet Visual hallucinations, resolved likely secondary to alcohol detoxing Psychiatry evaluated patient Continue Seroquel 50 mg at bedtime Elevated liver enzymes, resolved Multifactorial with patient with alcohol use, PEA cardiac arrest Follow-up liver enzymes are normal S/P Hypoxic respiratory respiratory failure, COPD exacerbation-resolved Patient intubated 07/01/16, extubated 07/03/16 Bronchodilators every 2 hours as needed, patient has not required any in 2 weeks, will discontinue at this time Patient continued on prednisone 10 mg twice daily, will discontinue that at this time Pulmonology following the patient Bibasilar airspace disease noted on chest x-ray, resolved Sputum culture with MRSA, however nasal screen for MRSA was positive also. Could be secondary to colonization Patient on Bactrim till 07/21 Patient was started on Lasix with improvement Follow-up chest x-ray shows resolution Cardiomyopathy/NSTEMI/PEA arrest/Systolic congestive heart failure/Hypotension: Status post cardiopulmonary resuscitation with return of spontaneous pulse and breathing Echo 06/30: EF 2530%, aortic valve mild regurgitation, mitral valve mild to moderate regurgitation, tricuspid valve trace to mild regurgitation, systolic function severely diminished. Echo 07/02: EF 30-35% with diffuse hypokinesis and small pericardial effusion. Cardiology was following the patient and signed off on 07/09, indicated patient stable to discharge from cardiology standpoint. Follow-up out patient setting Unable to use beta ganesh, HERMINIO inhibitor, calcium channel ganesh, nitrate, due to low blood pressure. The patient significant cardiomyopathy systolic blood pressure 8090 is appropriate as long as map is staying above 65 Discuss with cardiology who indicated patient will require evaluation for AICD and 90 days post cardiac arrest. Patient will require outpatient follow-up Atrial fibrillation with RVR, heart rate controlled Unable to use calcium channel blockers, beta blockers, amiodarone for rate control or conversion due to low blood pressure secondary to cardiomyopathy Patient started on digoxin 0.125 mg daily, monitor digoxin level Patient has had recent echocardiogram on 07/02/16 Chads score is 2 Patient anticoagulated with Eliquis Hypocalcemia/Hyponatremia/Hypokalemia/Hypomagnesemia: Resolved. Monitor and replete as needed Thrombocytopenia: Improved. No signs of bleeding. Due to alcoholism Monitor CBC DVT Prophylaxis: On Eliquis Discharge Planning Case management for discharge planning. Awaiting PT clearance for discharge Evangelist Woods August 25, 2016 11:01
[2016-08-25 20:00] VITALS: BP 132/86; PULSE 87; RESP 18; TEMP 97.4; O2SAT 99
[2016-08-25] MEDS: QUEtiapine FUMARATE 25 MG TAB PO SCH (22:05)
[2016-08-26] MEDS: ACETAMINOPHEN 325 MG TAB PO PRN (00:05)
[2016-08-26] MEDS: diphenhydrAMINE HCL 25 MG CAP PO PRN ×2 (00:05→19:23)
[2016-08-26 08:00] VITALS: BP 96/78; PULSE 79; RESP 18; TEMP 96.6; O2SAT 96
[2016-08-26] MEDS: MULTIVITAMIN TAB PO SCH (09:00)
[2016-08-26] MEDS: DIGOXIN 0.125 MG TAB PO SCH (09:22)
[2016-08-26] MEDS: MAGNESIUM OXIDE 400 MG TAB PO SCH ×2 (09:22→19:24)
[2016-08-26] MEDS: THIAMINE HCL 100 MG TAB PO SCH (09:22)
[2016-08-26] MEDS: APIXABAN 5 MG TABLET PO SCH ×2 (09:22→19:24)
[2016-08-26] MEDS: ATORVASTATIN 20 MG TAB PO SCH (09:22)
--- NOTE | 2016-08-26 11:07 | HHI.PR ---
Subjective Remarks Patient seen and examined today for follow-up on PEA cardiac arrest, weakness. Patient appears to improve on a daily basis. Objective Vitals Vital Signs Date Time Temp Pulse Resp B/P Pulse Ox O2 Delivery O2 Flow Rate FiO2 08/26/16 08:00 96.6 79 18 96/78 96 08/25/16 20:00 97.4 87 18 132/86 99 I/O 08/25/16 08/25/16 08/25/16 08/26/16 08/26/16 08/26/16 07:00 15:00 23:00 07:00 15:00 23:00 Intake Total 240 ml 600 ml 480 ml Balance 240 ml 600 ml 480 ml Intake Oral 240 ml 600 ml 480 ml # Voids 2 3 1 2 # Bowel Movements 1 0 0 Objective Remarks GENERAL: Well-developed, well-nourished, in no acute distress. alert and orientated to person, month, place, current events HEENT: Head is normocephalic without any lesions or masses noted. Facial features are symmetric. Eyes: Extraocular muscles are intact. Conjunctivae were clear. NECK: Supple without any masses. Trachea midline no deviation. No JVD, CARDIAC: Regular rhythm, regular rate. S1/S2 are heard. No murmurs gallops or rubs. LUNGS: Clear to auscultation bilaterally. No wheeze, rhonchi or rales. No use of accessory muscles on inspiration or expiration. ABDOMEN: Soft, nontender. Nondistended. Bowel sounds heard in all 4 quadrants. No organomegaly or masses. Negative rebound, negative guarding EXTREMITIES: No edema, pulses are equal bilaterally. No cyanosis or clubbing NEUROLOGY: Mood and affect appear appropriate. Cranial nerves II through XII grossly intact. Moving all extremities, speech is clear Urinary Catheter: No Date of Insertion: Jul 01, 2016 Date of Removal: Jul 09, 2016 Vascular Central Line Catheter: No Date of Insertion: Jul 01, 2016 Date of Removal: Jul 06, 2016 A/P Assessment and Plan Deconditioning Continue physical therapy on a daily basis. Physical therapy indicates that patient may need use walker or cane upon discharge. Other prior setting which is homeless. Patient is walking 260 feet slowly with standby assist. No change in discharge recommendations from physical therapy Hypomagnesemia, corrected Magnesium oxide 800 mg twice daily Chest pain, atypical: Resolved Cardiac enzymes were performed which did not indicate any acute coronary event EKG shows atrial fibrillation with PVCs. No signs of any acute coronary event Nuclear stress test was performed which did not indicate any signs of reversible perfusion defect. However did indicate left ventricle dilation with global hypokinesis and ejection fraction 29%. Unable to use beta ganesh, nitroglycerin, HERMINIO inhibitor, calcium channel ganesh due to low blood pressure from cardiomyopathy Lipid panel performed which did show LDL 129, continue Lipitor 20 mg daily Encephalopathy: Significantly improved. 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 Patient is much more alert EEG does show moderate encephalopathy, CT scans of the brain did not show any acute abnormality Continue monitor mental status Speech therapy, cognitive evaluation within normal limits. Regular consisting diet Visual hallucinations, resolved likely secondary to alcohol detoxing Psychiatry evaluated patient Continue Seroquel 50 mg at bedtime Elevated liver enzymes, resolved Multifactorial with patient with alcohol use, PEA cardiac arrest Follow-up liver enzymes are normal S/P Hypoxic respiratory respiratory failure, COPD exacerbation-resolved Patient intubated 07/01/16, extubated 07/03/16 Bronchodilators every 2 hours as needed, patient has not required any in 2 weeks, will discontinue at this time Patient continued on prednisone 10 mg twice daily, will discontinue that at this time Pulmonology following the patient Bibasilar airspace disease noted on chest x-ray, resolved Sputum culture with MRSA, however nasal screen for MRSA was positive also. Could be secondary to colonization Patient on Bactrim till 07/21 Patient was started on Lasix with improvement Follow-up chest x-ray shows resolution Cardiomyopathy/NSTEMI/PEA arrest/Systolic congestive heart failure/Hypotension: Status post cardiopulmonary resuscitation with return of spontaneous pulse and breathing Echo 06/30: EF 2530%, aortic valve mild regurgitation, mitral valve mild to moderate regurgitation, tricuspid valve trace to mild regurgitation, systolic function severely diminished. Echo 07/02: EF 30-35% with diffuse hypokinesis and small pericardial effusion. Cardiology was following the patient and signed off on 07/09, indicated patient stable to discharge from cardiology standpoint. Follow-up out patient setting Unable to use beta ganesh, HERMINIO inhibitor, calcium channel ganesh, nitrate, due to low blood pressure. The patient significant cardiomyopathy systolic blood pressure 8090 is appropriate as long as map is staying above 65 Discuss with cardiology who indicated patient will require evaluation for AICD and 90 days post cardiac arrest. Patient will require outpatient follow-up Atrial fibrillation with RVR, heart rate controlled Unable to use calcium channel blockers, beta blockers, amiodarone for rate control or conversion due to low blood pressure secondary to cardiomyopathy Patient started on digoxin 0.125 mg daily, monitor digoxin level Patient has had recent echocardiogram on 07/02/16 Chads score is 2 Patient anticoagulated with Eliquis Hypocalcemia/Hyponatremia/Hypokalemia/Hypomagnesemia: Resolved. Monitor and replete as needed Thrombocytopenia: Improved. No signs of bleeding. Due to alcoholism Monitor CBC DVT Prophylaxis: On Eliquis Discharge Planning Case management for discharge planning. Awaiting PT clearance for discharge Evangelist Woods August 26, 2016 11:07
[2016-08-26] MEDS: QUEtiapine FUMARATE 25 MG TAB PO SCH (19:24)
[2016-08-26 20:00] VITALS: BP 105/68; PULSE 91; RESP 20; TEMP 98.3; O2SAT 98
[2016-08-27 08:00] VITALS: BP 101/76; PULSE 84; RESP 16; TEMP 96.8; O2SAT 98
[2016-08-27] MEDS: APIXABAN 5 MG TABLET PO SCH ×2 (09:26→23:01)
[2016-08-27] MEDS: ATORVASTATIN 20 MG TAB PO SCH (09:26)
[2016-08-27] MEDS: MAGNESIUM OXIDE 400 MG TAB PO SCH ×2 (09:26→23:01)
[2016-08-27] MEDS: DIGOXIN 0.125 MG TAB PO SCH (09:26)
--- NOTE | 2016-08-27 09:58 | HHI.PR ---
Subjective Remarks Patient seen and examined today for follow-up on PEA cardiac arrest. Patient states that he is getting stronger and a daily basis. Denies any new complaints. Objective Vitals Vital Signs Date Time Temp Pulse Resp B/P Pulse Ox O2 Delivery O2 Flow Rate FiO2 08/26/16 20:00 98.3 91 20 105/68 98 I/O 08/26/16 08/26/16 08/26/16 08/27/16 08/27/16 08/27/16 06:59 14:59 22:59 06:59 14:59 22:59 Intake Total 480 ml 420 ml 480 ml 480 ml Balance 480 ml 420 ml 480 ml 480 ml Intake Oral 480 ml 420 ml 480 ml 480 ml # Voids 2 2 1 2 # Bowel Movements 0 0 0 0 Objective Remarks GENERAL: Well-developed, well-nourished, in no acute distress. alert and orientated to person, month, place, current events HEENT: Head is normocephalic without any lesions or masses noted. Facial features are symmetric. Eyes: Extraocular muscles are intact. Conjunctivae were clear. NECK: Supple without any masses. Trachea midline no deviation. No JVD, CARDIAC: Regular rhythm, regular rate. S1/S2 are heard. No murmurs gallops or rubs. LUNGS: Clear to auscultation bilaterally. No wheeze, rhonchi or rales. No use of accessory muscles on inspiration or expiration. ABDOMEN: Soft, nontender. Nondistended. Bowel sounds heard in all 4 quadrants. No organomegaly or masses. Negative rebound, negative guarding EXTREMITIES: No edema, pulses are equal bilaterally. No cyanosis or clubbing NEUROLOGY: Mood and affect appear appropriate. Cranial nerves II through XII grossly intact. Moving all extremities, speech is clear Urinary Catheter: No Date of Insertion: Jul 01, 2016 Date of Removal: Jul 09, 2016 Vascular Central Line Catheter: No Date of Insertion: Jul 01, 2016 Date of Removal: Jul 06, 2016 A/P Assessment and Plan Deconditioning Continue physical therapy on a daily basis. Physical therapy indicates that patient may need use walker or cane upon discharge. Other prior setting which is homeless. Patient is walking 280 feet slowly with standby assist. No change in discharge recommendations from physical therapy Hypomagnesemia, corrected Magnesium oxide 800 mg twice daily Chest pain, atypical: Resolved Cardiac enzymes were performed which did not indicate any acute coronary event EKG shows atrial fibrillation with PVCs. No signs of any acute coronary event Nuclear stress test was performed which did not indicate any signs of reversible perfusion defect. However did indicate left ventricle dilation with global hypokinesis and ejection fraction 29%. Unable to use beta ganesh, nitroglycerin, HERMINIO inhibitor, calcium channel ganesh due to low blood pressure from cardiomyopathy Lipid panel performed which did show LDL 129, continue Lipitor 20 mg daily Encephalopathy: Significantly improved. 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 Patient is much more alert EEG does show moderate encephalopathy, CT scans of the brain did not show any acute abnormality Continue monitor mental status Speech therapy, cognitive evaluation within normal limits. Regular consisting diet Visual hallucinations, resolved likely secondary to alcohol detoxing Psychiatry evaluated patient Continue Seroquel 50 mg at bedtime Elevated liver enzymes, resolved Multifactorial with patient with alcohol use, PEA cardiac arrest Follow-up liver enzymes are normal S/P Hypoxic respiratory respiratory failure, COPD exacerbation-resolved Patient intubated 07/01/16, extubated 07/03/16 Bronchodilators every 2 hours as needed, patient has not required any in 2 weeks, will discontinue at this time Patient continued on prednisone 10 mg twice daily, will discontinue that at this time Pulmonology following the patient Bibasilar airspace disease noted on chest x-ray, resolved Sputum culture with MRSA, however nasal screen for MRSA was positive also. Could be secondary to colonization Patient on Bactrim till 07/21 Patient was started on Lasix with improvement Follow-up chest x-ray shows resolution Cardiomyopathy/NSTEMI/PEA arrest/Systolic congestive heart failure/Hypotension: Status post cardiopulmonary resuscitation with return of spontaneous pulse and breathing Echo 06/30: EF 2530%, aortic valve mild regurgitation, mitral valve mild to moderate regurgitation, tricuspid valve trace to mild regurgitation, systolic function severely diminished. Echo 07/02: EF 30-35% with diffuse hypokinesis and small pericardial effusion. Cardiology was following the patient and signed off on 07/09, indicated patient stable to discharge from cardiology standpoint. Follow-up out patient setting Unable to use beta ganesh, HERMINIO inhibitor, calcium channel ganesh, nitrate, due to low blood pressure. The patient significant cardiomyopathy systolic blood pressure 8090 is appropriate as long as map is staying above 65 Discuss with cardiology who indicated patient will require evaluation for AICD and 90 days post cardiac arrest. Patient will require outpatient follow-up Atrial fibrillation with RVR, heart rate controlled Unable to use calcium channel blockers, beta blockers, amiodarone for rate control or conversion due to low blood pressure secondary to cardiomyopathy Patient started on digoxin 0.125 mg daily, monitor digoxin level Patient has had recent echocardiogram on 07/02/16 Chads score is 2 Patient anticoagulated with Eliquis Hypocalcemia/Hyponatremia/Hypokalemia/Hypomagnesemia: Resolved. Monitor and replete as needed Thrombocytopenia: Improved. No signs of bleeding. Due to alcoholism Monitor CBC DVT Prophylaxis: On Eliquis Discharge Planning Case management for discharge planning. Awaiting PT clearance for discharge Evangelist Woods August 27, 2016 09:58
[2016-08-27] MEDS: MULTIVITAMIN TAB PO SCH (11:34)
[2016-08-27] MEDS: THIAMINE HCL 100 MG TAB PO SCH (11:34)
[2016-08-27 20:00] VITALS: BP 113/79; PULSE 100; RESP 19; TEMP 98.1; O2SAT 98
[2016-08-27] MEDS: QUEtiapine FUMARATE 25 MG TAB PO SCH (23:01)
[2016-08-27] MEDS: diphenhydrAMINE HCL 25 MG CAP PO PRN (23:01)
[2016-08-28 08:00] VITALS: BP 108/62; PULSE 80; RESP 16; TEMP 98.1; O2SAT 97
[2016-08-28] MEDS: ATORVASTATIN 20 MG TAB PO SCH (09:25)
[2016-08-28] MEDS: APIXABAN 5 MG TABLET PO SCH (09:25)
[2016-08-28] MEDS: MULTIVITAMIN TAB PO SCH (09:25)
[2016-08-28] MEDS: THIAMINE HCL 100 MG TAB PO SCH (09:25)
[2016-08-28] MEDS: MAGNESIUM OXIDE 400 MG TAB PO SCH (09:25)
[2016-08-28] MEDS: DIGOXIN 0.125 MG TAB PO SCH (09:26)
--- NOTE | 2016-08-28 10:29 | HHI.PR ---
Subjective Remarks Patient was seen and examined today for follow-up on PEA cardiac arrest and deconditioning. Patient is improving on a daily basis. He indicates that he is contacting organizations in outpatient setting trying to arrange a place for him to live when he gets discharged. Objective Vitals Vital Signs Date Time Temp Pulse Resp B/P Pulse Ox O2 Delivery O2 Flow Rate FiO2 08/27/16 20:00 98.1 100 19 113/79 98 I/O 08/27/16 08/27/16 08/27/16 08/28/16 08/28/16 08/28/16 07:00 15:00 23:00 07:00 15:00 23:00 Intake Total 480 ml 360 ml Balance 480 ml 360 ml Intake Oral 480 ml 360 ml IV Total 0 ml # Voids 2 3 1 # Bowel Movements 0 Objective Remarks GENERAL: Well-developed, well-nourished, in no acute distress. alert and orientated to person, month, place, current events HEENT: Head is normocephalic without any lesions or masses noted. Facial features are symmetric. Eyes: Extraocular muscles are intact. Conjunctivae were clear. NECK: Supple without any masses. Trachea midline no deviation. No JVD, CARDIAC: Regular rhythm, regular rate. S1/S2 are heard. No murmurs gallops or rubs. LUNGS: Clear to auscultation bilaterally. No wheeze, rhonchi or rales. No use of accessory muscles on inspiration or expiration. ABDOMEN: Soft, nontender. Nondistended. Bowel sounds heard in all 4 quadrants. No organomegaly or masses. Negative rebound, negative guarding EXTREMITIES: No edema, pulses are equal bilaterally. No cyanosis or clubbing NEUROLOGY: Mood and affect appear appropriate. Cranial nerves II through XII grossly intact. Moving all extremities, speech is clear Urinary Catheter: No Date of Insertion: Jul 01, 2016 Date of Removal: Jul 09, 2016 Vascular Central Line Catheter: No Date of Insertion: Jul 01, 2016 Date of Removal: Jul 06, 2016 A/P Assessment and Plan Deconditioning Continue physical therapy on a daily basis. Physical therapy indicates that patient may need use walker or cane upon discharge. Other prior setting which is homeless with outpatient physical therapy if can be arranged. Patient is walking 320 feet slowly with standby assist. Hypomagnesemia, corrected Magnesium oxide 800 mg twice daily Chest pain, atypical: Resolved Cardiac enzymes were performed which did not indicate any acute coronary event EKG shows atrial fibrillation with PVCs. No signs of any acute coronary event Nuclear stress test was performed which did not indicate any signs of reversible perfusion defect. However did indicate left ventricle dilation with global hypokinesis and ejection fraction 29%. Unable to use beta ganesh, nitroglycerin, HERMINIO inhibitor, calcium channel ganesh due to low blood pressure from cardiomyopathy Lipid panel performed which did show LDL 129, continue Lipitor 20 mg daily Encephalopathy: Significantly improved. 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 Patient is much more alert EEG does show moderate encephalopathy, CT scans of the brain did not show any acute abnormality Continue monitor mental status Speech therapy, cognitive evaluation within normal limits. Regular consisting diet Visual hallucinations, resolved likely secondary to alcohol detoxing Psychiatry evaluated patient Continue Seroquel 50 mg at bedtime Elevated liver enzymes, resolved Multifactorial with patient with alcohol use, PEA cardiac arrest Follow-up liver enzymes are normal S/P Hypoxic respiratory respiratory failure, COPD exacerbation-resolved Patient intubated 07/01/16, extubated 07/03/16 Bronchodilators every 2 hours as needed, patient has not required any in 2 weeks, will discontinue at this time Patient continued on prednisone 10 mg twice daily, will discontinue that at this time Pulmonology following the patient Bibasilar airspace disease noted on chest x-ray, resolved Sputum culture with MRSA, however nasal screen for MRSA was positive also. Could be secondary to colonization Patient on Bactrim till 07/21 Patient was started on Lasix with improvement Follow-up chest x-ray shows resolution Cardiomyopathy/NSTEMI/PEA arrest/Systolic congestive heart failure/Hypotension: Status post cardiopulmonary resuscitation with return of spontaneous pulse and breathing Echo 06/30: EF 2530%, aortic valve mild regurgitation, mitral valve mild to moderate regurgitation, tricuspid valve trace to mild regurgitation, systolic function severely diminished. Echo 07/02: EF 30-35% with diffuse hypokinesis and small pericardial effusion. Cardiology was following the patient and signed off on 07/09, indicated patient stable to discharge from cardiology standpoint. Follow-up out patient setting Unable to use beta ganesh, HERMINIO inhibitor, calcium channel ganesh, nitrate, due to low blood pressure. The patient significant cardiomyopathy systolic blood pressure 8090 is appropriate as long as map is staying above 65 Discuss with cardiology who indicated patient will require evaluation for AICD and 90 days post cardiac arrest. Patient will require outpatient follow-up Atrial fibrillation with RVR, heart rate controlled Unable to use calcium channel blockers, beta blockers, amiodarone for rate control or conversion due to low blood pressure secondary to cardiomyopathy Patient started on digoxin 0.125 mg daily, monitor digoxin level Patient has had recent echocardiogram on 07/02/16 Chads score is 2 Patient anticoagulated with Eliquis Hypocalcemia/Hyponatremia/Hypokalemia/Hypomagnesemia: Resolved. Monitor and replete as needed Thrombocytopenia: Improved. No signs of bleeding. Due to alcoholism Monitor CBC DVT Prophylaxis: On Eliquis Discharge Planning Consult case management discharge planning Evangelist Woods August 28, 2016 10:29
[2016-08-28] MEDS ORDERED: QUET1TAB7 PO (10:48)
[2016-08-28] MEDS ORDERED: ATOR20TA15 PO (10:48)
[2016-08-28] MEDS ORDERED: APIX5TAB PO (10:48)
[2016-08-28] MEDS ORDERED: DIGO0.12 PO (10:48)
[2016-08-28] MEDS ORDERED: MAGN400T3 PO (10:48)
--- NOTE | 2016-08-28 10:51 | HHI.DCPOC ---
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 Avoid second hand smoke Call the 24-hour hour crisis hotline for domestic abuse at Evangelist Woods August 28, 2016 10:51
[2016-08-28] MEDS ORDERED: CANEMIS (11:12)
--- NOTE | 2016-08-28 14:59 | HHI.DS ---
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 He also presented with complaints of left-sided chest pain with radiation to the right side. he's also complaining of some left sided chest pain. The patient states he was diagnosed with A. fib, and COPD years ago but was noncompliant and did not take any medications secondary to finances. The patient also reported drinking approximately 4 beers a day and is chronic smoker. Since his admission with diagnosis of,NSTEMI, A. fib RVR, cardiology was consulted with management. Patient was also noted to have a right lower lobe pneumonia and was placed on azithromycin and Rocephin, as well as COPD exacerbation with nebulizer treatments and steroids. Patient had recently underwent a echocardiogram yesterday which revealed an ejection fraction of 25-30% with systolic function severely decreased. This afternoon, the patient on telemetry was noted to go from a heart rate of 90s to a heart rate subsequently in the 40s. Upon the RN entering the room, she was noted that the patient was unconscious lying supine on the floor with the IVs traumatically removed, from a fall. Initially the patient was in a sinus bradycardia and atropine 1 dose was given. The patient immediately went into PEA arrest, and subsequently underwent 2 rounds of CPR with 2 doses of epinephrine, and ROSC. The patient had been noted to be hypokalemic and was receiving potassium repletion prior to the incident. During the code of note magnesium level was 1.3 and the patient received 2 g of magnesium. The patient was then transferred to CVICU, placed on epinephrine infusion. The patient's mother was notified of events and requests aggressive treatment measures continue to be instituted. Dr. Wright was notified of the events. Critical care medicine is consulted for management and treatment. Imaging Last Impressions Myocardial Perfusion Scan Nuc Med 07/27/16 0000 Signed Impressions: Service Date/Time: Wednesday, July 27, 2016 10:31 - CONCLUSION: 1. No fixed or reversible perfusion defect is identified. 2. However, left ventricle is dilated with global hypokinesia and abnormally reduced left ventricle ejection fraction calculated at 29%%. RISK CATEGORY: Intermediate (1-3%% Annual Mortality Rate) Madhav Graham MD Chest X-Ray 07/11/16 0000 Signed Impressions: Service Date/Time: Monday, July 11, 2016 21:15 - CONCLUSION: 1. Resolution of previous basilar airspace disease. No infiltrate or effusion. Cardiomegaly. Eugene Branch MD Head CT [id number] Signed Impressions: Service Date/Time: Friday, July 01, 2016 21:13 - CONCLUSION: No acute disease. Darian Oswald MD Abdomen Ultrasound 07/01/16 0000 Signed Impressions: Service Date/Time: Friday, July 01, 2016 09:33 - CONCLUSION: Small amount of ascites seen around the liver and spleen. This is not large enough to drain. Madhav Guy MD PE at Discharge GENERAL: Pleasant well-developed patient in no apparent distress. CARDIOVASCULAR: Normal rate. RESPIRATORY: No accessory muscle use. Clear to auscultation. Breath sounds equal bilaterally. GASTROINTESTINAL: Abdomen soft, non-tender, non-distended. NEUROLOGICAL: Awake and alert. Normal speech. PSYCHIATRIC: Appropriate mood and affect. Hospital Course 45 year-old male who originally presented to hospital with his shortness of breath and cough. Patient was complaining of left-sided chest pain during that time radiating to the right side of his chest. The patient does have history of COPD, atrial fibrillation, chronic alcohol and tobacco use. While patient in the hospital patient did have PEA cardiac arrest 2. Patient was transferred to care team. On 07/01/16 the patient was orally intubated, central line and arterial line placement was performed. Patient was managed in the critical care setting. Cardiology evaluated the patient and patient was to critical at the time for any intervention. Patient did have echocardiogram done at that time which did show systolic function was severely reduced with ejection fraction 2530 percent. Patient was extubated on . Patient was managed in the ICU until 07/05/16. Patient was transferred to medical service on 07/06/16. Patient has significant encephalopathy, possibly secondary to alcohol withdrawal, PEA cardiac arrest. Because the patient's continued encephalopathy and overall deconditioning patient was transferred to [place] for continued management on 07/11/16. Patient remains in [place] until then. Patient did have episodes of chest discomfort while here in the [facility]. Patient did undergo cardiac enzyme evaluation which was negative. Patient underwent nuclear stress test which did not show any reversible perfusion defect. There was dilated global hypokinesis. With ejection fraction 29%. She'll discuss with underwriting support manager Dr. Wright, who indicated patient needs to continue current treatment plan this time. Because of his young age and underlying alcoholism he should recover cardiac function. Recommend a six-month follow-up for further evaluation and echocardiogram. Patient continue management in [place] with physical therapy continued progress. He is walking on his own at this time until his 320 feet. He is doing wall pushups with minimal exertion. Patient clinically stable at this time. Case management consulted for discharge planning. Ephraim herrera was able to provide the patient with his medications, outpatient follow-up. Will plan discharge accordingly. Pt Condition on Discharge: Stable Discharge Disposition: Discharge Home Discharge Time: > 30 minutes Discharge Instructions DIET: Follow Instructions for: Heart Healthy Diet Speech Therapy-Diet Recommends: Other Activities you can perform: Regular-No Restrictions Activities to Avoid: Driving for 24 hrs Follow up Referrals: Cardiology - [address] Wright PCP Follow-up - 1 Week New Medications: Cane/Mens (Cane/Mens) 1 Mis Mis 1 EA .ROUTE DIRECTED #1 EA Apixaban (Eliquis) 5 Mg Tab 5 MG PO BID atrial fibrillation Days 30 TAB Atorvastatin (Atorvastatin) 20 Mg Tab 20 MG PO DAILY hyperlipidemia Days 30 TAB Digoxin (Digoxin) 0.125 Mg Tab 0.125 MG PO DAILY atrial fibrillation Days 30 TAB Magnesium Oxide (Magnesium Oxide) 241.3 Mg Tab 800 MG PO BID electrolyte replacement Days 30 TAB Quetiapine (Quetiapine) 25 Mg Tab 25 MG PO HS psychiatric illness Days 30 TAB Additional Information Written by Evangelist Woods, acting as scribe for Dr. Jimenes on 08/28/16 at 14: 50. This note was transcribed by scribe [Evangelist Woods]. I, Dr. Dale Jimenes personally performed the history, physical exam, and medical decision making; and confirmed the accuracy of the information in the transcribed note. Authenticated by Dr. Dale Jimenes on 08/28/16 at 14:51. Evangelist Woods August 28, 2016 14:59 Dale Jimenes MD August 28, 2016 22:51
[2016-09-01] MEDS ORDERED: VENTAER INH ×2 (11:48→11:50)
[2016-09-01] MEDS ORDERED: MAGN400T3 PO ×2 (11:48→11:50)
[2016-09-01] MEDS ORDERED: APIX5TAB PO ×2 (11:48→11:49)
[2016-09-01] MEDS ORDERED: ATOR20TA15 PO ×2 (11:48→11:49)
[2016-09-01] MEDS ORDERED: DIGO0.12 PO ×2 (11:48→11:49)
== END 2016-08-28 16:55 | disposition home or self-care (01) | DRG 208 ==
LOC: NEPC 23:20 → NEDA 06-30 01:00 → HCIN 06-30 03:15 → HCVR 07-01 14:27 → HIME 07-06 10:40 → N04B 07-09 22:51 → UNDODISIN 07-12 22:05 → PH5A 07-12 22:50
PROVIDERS: ADMIT Internal Medicine; ATTEND Family Medicine
PROC: 04HY32Z Insertion of Monitoring Device into Lower Artery, Percutaneous Approach (ICD-10-PCS; principal; 2016-07-01)
PROC: 5A1945Z Respiratory Ventilation, 24-96 Consecutive Hours (ICD-10-PCS; 2016-07-01)
PROC: 0BH18EZ Insertion of Endotracheal Airway into Trachea, Via Natural or Artificial Opening Endoscopic (ICD-10-PCS; 2016-07-01)
PROC: 02HV33Z Insertion of Infusion Device into Superior Vena Cava, Percutaneous Approach (ICD-10-PCS; 2016-07-01)
DX: J44.0 Chronic obstructive pulmonary disease with (acute) lower respiratory infection (principal); I21.4 Non-ST elevation (NSTEMI) myocardial infarction; J96.91 Respiratory failure, unspecified with hypoxia; I50.21 Acute systolic (congestive) heart failure; G93.1 Anoxic brain damage, not elsewhere classified; J18.9 Pneumonia, unspecified organism; E87.3 Alkalosis; D69.59 Other secondary thrombocytopenia; I46.9 Cardiac arrest, cause unspecified; E87.1 Hypo-osmolality and hyponatremia; F10.251 Alcohol dependence with alcohol-induced psychotic disorder with hallucinations; I42.9 Cardiomyopathy, unspecified; E83.42 Hypomagnesemia; E83.51 Hypocalcemia; I48.2 Chronic atrial fibrillation; J44.1 Chronic obstructive pulmonary disease with (acute) exacerbation; E87.6 Hypokalemia; F17.210 Nicotine dependence, cigarettes, uncomplicated; R94.5 Abnormal results of liver function studies; R07.89 Other chest pain; R73.9 Hyperglycemia, unspecified; Z22.322 Carrier or suspected carrier of Methicillin resistant Staphylococcus aureus; Z91.14 Patient's other noncompliance with medication regimen; Z59.0 Homelessness
CPT/HCPCS: 31500; 36556; 70450; 71010; 76705; 76937; 78452; 80048; 80053; 80061; 80076; 80162; 82550; 82552; 82805; 82948; 83605; 83735; 83880; 84100; 84132; 84155; 84484; 85014; 85025; 85027; 85610; 85730; 86850; 86900; 86901; 87040; 87070; 87077; 87186; 87205; 87641; 92950; 93005; 93017; 93306; 94002; 94003; 94060; 94150; 94640; 94664; 95819; A9502; C9399; J0171; J0456; J0461; J0610; J0696; J1120; J1250; J1630; J1650; J1940; J2060; J2405; J2785; J2920; J2997; J3475; J3480; J7030; J7050; J7060; J7512; J7613

== ENCOUNTER 2016-09-15 19:12 | Inpatient (IN) | payer OTHER ==
[~2016-09-15] VITALS: Ht 175.3 cm; Wt 93.0 kg
[2016-09-15 01:32] VITALS: PULSE 113
[~2016-09-15 19:12] MED LIST changes: +APIX5TAB PO; -ASPI325T PO; +ATOR20TA15 PO; +CANEMIS; -CARD240C6 PO; +DIGO0.12 PO; -DILA100C PO; -IBUP-232 PO; -LORA-474 PO; +MAGN400T3 PO; -PANT20 PO; +VENTAER INH
[2016-09-15 19:19] VITALS: BP 117/78; PULSE 86; RESP 20; TEMP 98.4; O2SAT 97
[2016-09-15] MEDS ORDERED: SODIUM CHLORIDE 0.9% FLUSH 10 ML FLUSH IVF PRN (19:30)
[2016-09-15] MEDS ORDERED: FUROSEMIDE 40 MG/4 ML VIAL IVP ONE (19:30)
[2016-09-15 19:33] VITALS: PULSE 89
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
--- NOTE | 2016-09-15 20:09 | RADRPT ---
EXAM DATE/TIME: 09/15/2016 19:44 [facility] COMPARISON: CHEST SINGLE AP, July 11, 2016, 21:15. INDICATIONS : Chest pain. MEDICAL HISTORY : Myocardial infarction. Cardiovascular disease. Seizures SURGICAL HISTORY : None. ENCOUNTER: Initial ACUITY: 1 day PAIN SCORE: 7/10 LOCATION: Bilateral chest FINDINGS: A single view of the chest demonstrates the lungs to be symmetrically aerated without evidence of mas s, infiltrate or effusion. Mild cardiomegaly. Osseous structures are intact. CONCLUSION: Mild cardiomegaly. Clear lungs. Brayden Rowell Jr., MD on September 15, 2016 at 20:06 Board Certified Radiologist. This report was verified electronically.
[2016-09-15 20:14] LABS: BASOPHIL % 0.6 % (0.0-2.0); EOSINOPHIL # 0.4 TH/MM3 (0-0.4); EOSINOPHIL % 5.8 % (0.0-4.0); HEMATOCRIT 33.4 % (39.0-51.0); LYMPH % 40.2 % (9.0-44.0); LYMPHOCYTE # 2.6 TH/MM3 (1.0-4.8); MEAN CELL VOLUME 94.7 FL (80.0-100.0); MEAN CORPUSCULAR HEMOGLOBIN 33.1 PG (27.0-34.0); MEAN CORPUSCULAR HGB CONC 34.9 % (32.0-36.0); MONO % 7.4 % (0.0-8.0); PLATELET COUNT 91 TH/MM3 (150-450); RED BLOOD COUNT 3.52 MIL/MM3 (4.50-5.90); RED CELL DISTRIBUTION WIDTH 15.1 % (11.6-17.2); WHITE BLOOD COUNT 6.4 TH/MM3 (4.0-11.0)
[2016-09-15 20:19] LABS: HEMO FLAGS AUTO DIFF
[2016-09-15 20:24] LABS: APTT (PATIENT) 31.4 SEC (24.3-30.1); INTERNATIONAL NORMALIZED RATIO 1.2 RATIO; PROTHROMBIN TIME - PATIENT 12.9 SEC (9.8-11.6)
[2016-09-15 20:46] LABS: ALKALINE PHOSPHATASE 107 U/L (45-117); ALT (GPT) 23 U/L (12-78); ANION GAP 11 MEQ/L (5-15); AST (GOT) 44 U/L (15-37); BICARBONATE 22.9 MEQ/L (21.0-32.0); BLOOD UREA NITROGEN 4 MG/DL (7-18); CHLORIDE 106 MEQ/L (98-107); CREATINE KINASE 206 U/L (39-308); DIGOXIN 0.2 NG/ML (0.8-2.0); GLOMERULAR FILTRATION RATE 167 ML/MIN (>89); MAGNESIUM 1.5 MG/DL (1.5-2.5); POTASSIUM 3.2 MEQ/L (3.5-5.1); SODIUM (NA) 140 MEQ/L (136-145); TOTAL BILIRUBIN ADULT 1.1 MG/DL (0.2-1.0)
[2016-09-15 20:49] LABS: PLATELET ESTIMATE SMEAR LOW (NORMAL); PLATELET MORPHOLOGY NORMAL (NORMAL); SCAN/DIFF AUTO DIFF CONFIRMED
[2016-09-15 20:50] LABS: BLOOD, URINE NEG (NEG); GLUCOSE,URINE NEG (NEG); KETONE, URINE NEG (NEG); NITRITE,URINE NEG (NEG); PH, URINE 5.5 (5.0-8.5); URINE COLOR LIGHT-YELLOW (YELLW/STRAW)
[2016-09-15 20:51] LABS: CALCIUM-PROTEIN CORRECTED 7.4 MG/DL (8.5-10.1)
[2016-09-15 20:56] LABS: COMMENT (UR) CULT NOT INDICATED; CULTURE IF INDICATED CULT NOT INDICATED
[2016-09-15 21:00] VITALS: BP 128/72; PULSE 99; RESP 17; O2SAT 99
[2016-09-15 21:06] LABS: CKMB 3.1 NG/ML (0.5-3.6)
[2016-09-15] MEDS ORDERED: NALOXONE HCL 0.4 MG/ML AMP IV PRN (22:45)
[2016-09-15 23:00] VITALS: BP 121/69; PULSE 87; RESP 19; O2SAT 97
[2016-09-15] MEDS ORDERED: CALCIUM GLUCONATE INJ 2 GM in DEXTROSE 5% IN WATER 100ML INJ 100 ML IV ONE ×2 (23:00)
[2016-09-15] MEDS ORDERED: POTASSIUM CHLORIDE 25 MEQ EFFERVESCENT TAB PO ONE (23:00)
[2016-09-16] VITALS (13 sets, daily range): BP systolic 107–131; BP diastolic 59–71; PULSE 81–115; RESP 18–21; TEMP 97.7–98.9; O2SAT 91–97
[2016-09-16 02:17] LABS: AUTOMATED NEUTROPHIL # 1.9 TH/MM3 (1.8-7.7); BASOPHIL % 0.9 % (0.0-2.0); EOSINOPHIL # 0.3 TH/MM3 (0-0.4); EOSINOPHIL % 6.4 % (0.0-4.0); HEMATOCRIT 35.6 % (39.0-51.0); LYMPH % 47.5 % (9.0-44.0); LYMPHOCYTE # 2.3 TH/MM3 (1.0-4.8); MEAN CELL VOLUME 95.3 FL (80.0-100.0); MEAN CORPUSCULAR HEMOGLOBIN 32.3 PG (27.0-34.0); MEAN CORPUSCULAR HGB CONC 33.9 % (32.0-36.0); MONO % 7.1 % (0.0-8.0); NEUT % 38.1 % (16.0-70.0); PLATELET COUNT 76 TH/MM3 (150-450); RED BLOOD COUNT 3.74 MIL/MM3 (4.50-5.90); WHITE BLOOD COUNT 4.9 TH/MM3 (4.0-11.0)
[2016-09-16 02:19] LABS: HEMO FLAGS DIFF FINAL
[2016-09-16 02:30] LABS: BICARBONATE 29.3 MEQ/L (21.0-32.0); POTASSIUM 3.3 MEQ/L (3.5-5.1)
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
[2016-09-16] MEDS ORDERED: LORazepam 2 MG/ML VIAL IV PUSH PRN (03:15)
[2016-09-16] MEDS ORDERED: FUROSEMIDE 20 MG/2 ML VIAL IV PUSH ONE (03:15)
[2016-09-16] MEDS ORDERED: POTASSIUM CHLORIDE 20 MEQ CONTROLLED RELEASE TAB PO ONE (03:15)
[2016-09-16] MEDS: SODIUM CHLORIDE 0.9% FLUSH 10 ML FLUSH IV FLUSH PRN ×2 (03:33→22:41)
[2016-09-16] MEDS: DILTIAZEM INJ 125 MG in SODIUM CHLORIDE 0.9% INJ 100 ML IV SCH (03:58)
--- NOTE | 2016-09-16 08:50 | EKG ---
Date Performed: 09/16/2016 Time Performed: 08:13:04 PTAGE: 46 years EKG: ATRIAL FIBRILLATION WITH ABERRANT CONDUCTION OR VENTRICULAR PREMATURE COMPLEXES MARKED LEFT AXIS DEVIATION NONSPECIFIC T-WAVE ABNORMALITY ABNORMAL ECG PREVIOUS TRACING : 09/16/2016 01.23 DOCTOR: Kash Hughes Interpretating Date/Time 09/16/2016 08:49:25
--- NOTE | 2016-09-16 08:54 | EKG ---
Date Performed: 09/16/2016 Time Performed: 01:23:24 PTAGE: 46 years EKG: Atrial fibrillation Possible left anterior fascicular block Possible anterior infarct - age undetermined Lateral T wave changes are nonspecific Low QRS voltages in limb leads Abnormal ECG PREVIOUS TRACING : 09/15/2016 19.31 DOCTOR: Kash Hughes Interpretating Date/Time 09/16/2016 08:52:40
[2016-09-16] MEDS: SODIUM CHLORIDE 0.9% FLUSH 10 ML FLUSH IV FLUSH SCH ×2 (09:00→20:46)
--- NOTE | 2016-09-16 09:18 | EKG ---
Date Performed: 09/15/2016 Time Performed: 19:31:10 PTAGE: 46 years EKG: ATRIAL FIBRILLATION MARKED LEFT AXIS DEVIATION LOW QRS VOLTAGE IN PRECORDIAL LEADS INCOMPLE TE RIGHT BUNDLE BRANCH BLOCK SEPTAL MYOCARDIAL INFARCTION ABNORMAL ECG NO PREVIOUS TRACING DOCTOR: Kash Hughes Interpretating Date/Time 09/16/2016 09:16:00
[2016-09-16] MEDS: ATORVASTATIN 20 MG TAB PO SCH (09:57)
[2016-09-16] MEDS: APIXABAN 5 MG TABLET PO SCH ×2 (09:58→20:46)
[2016-09-16] MEDS: chlordiazePOXIDE 25 MG CAP PO SCH ×3 (09:58→17:47)
[2016-09-16] MEDS: DILTIAZEM-CD 180 MG CAP ER PO SCH (09:58)
[2016-09-16] MEDS: THIAMINE HCL 100 MG TAB PO SCH (09:58)
[2016-09-16] MEDS: DIGOXIN 0.125 MG TAB PO SCH (09:58)
[2016-09-16] MEDS: MAGNESIUM OXIDE 400 MG TAB PO SCH ×2 (09:59→20:46)
[2016-09-16] MEDS: FUROSEMIDE 20 MG/2 ML VIAL IV PUSH SCH ×2 (09:59→17:48)
[2016-09-16] MEDS ORDERED: THIAMINE INJ 100 MG in SODIUM CHLORIDE 0.9% INJ 100 ML IV ONE (10:00)
--- NOTE | 2016-09-16 10:00 | MB ---
cc: SARAH ROLAND M.D. DATE OF CONSULTATION 09/16/2016 REASON FOR CONSULTATION Evaluation of chest pain, rapid A. fib. HISTORY Madhav Polk is a 46-year-old alcoholic who is homeless who came in with an alcohol level 343. The patient is alert at the time I am seeing him and he does not remember very much about when he first came in the hospital, but recorder notes he had chest pain, shortness of breath, palpitations, painful nipples, but the patient tells me he has had chest pain and he had pain in his legs. Those are feeling better since he has gotten in here. He admits he has not alcohol problem. He has been through alcohol treatment in the past. He is homeless. He has had three previous ER visits since January where he was intoxicated. He had a nuclear stress test the last time he was in and it showed no evidence for any perfusion defects, but the EF was low. His echo July 02 showed left ventricular hypertrophy with an EF of 30-35%. The patient has known chronic A. fib. He has had seizures before probably related to DTs. PAST SURGICAL HISTORY He had a colostomy reversal for diverticular disease. FAMILY HISTORY Positive for coronary disease. He had a brother who at age 39 from a heart attack. Mother has heart disease as well. SOCIAL HISTORY He is a heavy drinker and is a pack per day smoker. He smokes marijuana as well. PHYSICAL EXAM This is a well-developed, well-nourished man who is sleeping when I first came in the room. He has no acute distress. VITAL SIGNS: Charted. Blood pressure is normal. He is in A. fib with a controlled rate on IV Cardizem. HEENT: Exam unremarkable. NECK: No JVD, no bruits. CHEST: Clear to auscultation. CARDIAC: S1 and S2 have a regular rate and rhythm, 1/6 systolic murmur. ABDOMEN: Soft and nontender. EXTREMITIES: Reveal 1+ lower extremity edema. LABORATORY DATA Charted. His troponins are negative. Chest x-ray showed clear lungs. IMPRESSION Chronic A. Fib, probably more likely alcohol related. Rates have been fast. He is controlled now on IV Cardizem. We will switch him to oral Cardizem. Continue aspirin. The patient would obviously benefit from anticoagulation, but he is a poor risk because of alcohol abuse. We will give some IV magnesium since his calcium and magnesium were both low. His potassium is low, the process is being repeated. Further therapy to be determined. MD HERSON Miguel/ROSEANN /9:41 AM /9:49 AM
[2016-09-16] MEDS: MAGNESIUM SULFATE 1 GM PREMIX 100 ML IV SCH ×2 (12:47→14:06)
[2016-09-17] VITALS: BP 106/64; PULSE 69; PULSE 71; RESP 22; TEMP 98.5; O2SAT 98
[2016-09-17] MEDS: DILTIAZEM INJ 125 MG in SODIUM CHLORIDE 0.9% INJ 100 ML IV SCH (02:04)
[2016-09-17 04:00] VITALS: BP 120/68; PULSE 73; PULSE 75; RESP 22; TEMP 98.7; O2SAT 92
[2016-09-17 07:42] LABS: BICARBONATE 27.8 MEQ/L (21.0-32.0); POTASSIUM 3.3 MEQ/L (3.5-5.1)
[2016-09-17 08:00] VITALS: BP 127/73; PULSE 70; RESP 16; TEMP 98.1; O2SAT 93
[2016-09-17 08:10] VITALS: PULSE 69
[2016-09-17] MEDS: MAGNESIUM OXIDE 400 MG TAB PO SCH (09:31)
[2016-09-17] MEDS: chlordiazePOXIDE 25 MG CAP PO SCH ×2 (09:31→13:17)
[2016-09-17] MEDS: SODIUM CHLORIDE 0.9% FLUSH 10 ML FLUSH IV FLUSH SCH (09:31)
[2016-09-17] MEDS: THIAMINE HCL 100 MG TAB PO SCH (09:31)
[2016-09-17] MEDS: DIGOXIN 0.125 MG TAB PO SCH (09:31)
[2016-09-17] MEDS: ATORVASTATIN 20 MG TAB PO SCH (09:31)
[2016-09-17] MEDS: APIXABAN 5 MG TABLET PO SCH (09:31)
[2016-09-17] MEDS: DILTIAZEM-CD 180 MG CAP ER PO SCH (09:31)
[2016-09-17] MEDS: FUROSEMIDE 20 MG/2 ML VIAL IV PUSH SCH (09:31)
[2016-09-17] MEDS ORDERED: METOPROLOL TARTRATE 25 MG TAB PO SCH (10:15)
[2016-09-17] MEDS ORDERED: POTASSIUM CHLORIDE 20 MEQ CONTROLLED RELEASE TAB PO SCH (10:15)
[2016-09-17] MEDS ORDERED: MAGNESIUM SULFATE 1 GM PREMIX 100 ML IV PRN (10:15)
--- NOTE | 2016-09-17 10:16 | PD.CARD.PN ---
Subjective Subjective Remarks C/o pain with deep breath left chest but moves around. Legs hurt Objective Medications Current Medications Medications (Trade) Dose Ordered Sig/Naren Route Start Time Stop Time Status Last Admin (NS Flush) 2 ml UNSCH PRN IV FLUSH 09/15/16 22:45 09/16/16 22:41 (NS Flush) 2 ml BID IV FLUSH 09/16/16 09:00 09/17/16 09:31 (Narcan Inj) 0.4 mg UNSCH PRN IV 09/15/16 22:45 (Eliquis) 5 mg BID PO 09/16/16 09:00 09/17/16 09:31 (Lipitor) 20 mg DAILY PO 09/16/16 09:00 09/17/16 09:31 (Lanoxin) 0.125 mg DAILY PO 09/16/16 09:00 09/17/16 09:31 (Mag-Ox) 800 mg BID PO 09/16/16 09:00 09/17/16 09:31 (Lasix Inj) 20 mg BID@,18 IV PUSH 09/16/16 09:00 09/17/16 09:31 (Ativan Inj) 1 mg Q2H PRN IV PUSH 09/16/16 03:15 09/16/16 22:40 (Librium) 25 mg TID PO 09/16/16 09:00 09/17/16 09:31 (Vitamin B1) 100 mg DAILY PO 09/16/16 09:00 09/17/16 09:31 (Cardizem Cd) 180 mg DAILY PO 09/16/16 09:45 09/17/16 09:31 (KCl) 40 meq DAILY PO 09/17/16 10:15 UNV (Lopressor) 25 mg Q12HR PO 09/17/16 10:15 UNV Vital Signs / I&O Vital Signs Date Time Temp Pulse Resp B/P Pulse Ox O2 Delivery O2 Flow Rate FiO2 09/17/16 08:00 98.1 70 16 127/73 93 09/17/16 04:00 98.7 75 22 120/68 92 09/17/16 04:00 73 09/17/16 04:00 Room Air 09/17/16 00:00 98.5 71 22 106/64 98 09/17/16 00:00 Room Air 09/17/16 00:00 69 09/16/16 21:58 Room Air 09/16/16 21:58 98.5 84 18 113/63 96 09/16/16 20:00 81 09/16/16 16:07 98.2 85 18 112/69 95 09/16/16 12:07 98.4 86 18 107/66 95 I/O 09/16/16 09/16/16 09/16/16 09/17/16 09/17/16 09/17/16 06:59 14:59 22:59 06:59 14:59 22:59 Intake Total 477 ml 520 ml 974 ml 120 ml Output Total 2700 ml 1350 ml 400 ml Balance 477 ml -2180 ml -376 ml -280 ml Intake Oral 360 ml 380 ml 720 ml 120 ml IV Total 117 ml 140 ml 254 ml Output Urine Total 2700 ml 1350 ml 400 ml # Voids 0 # Bowel Movements 0 2 0 0 Physical Exam Sleeping but easily aroused mild tremors Chest clear CV S1 S2 irr irr edema gione Laboratory Laboratory Tests Test 09/16/16 09/17/16 10:24 06:09 Total Creatine Kinase 154 U/L Troponin I 0.02 NG/ML Sodium Level 137 MEQ/L Potassium Level 3.3 MEQ/L Chloride Level 101 MEQ/L Carbon Dioxide Level 27.8 MEQ/L Anion Gap 8 MEQ/L Blood Urea Nitrogen 9 MG/DL Creatinine 0.58 MG/DL Estimat Glomerular Filtration 150 ML/MIN Rate Random Glucose 97 MG/DL Calcium Level 8.2 MG/DL Imaging Last 48 hours Impressions Chest X-Ray 09/15/161927 Signed Impressions: Service Date/Time: Thursday, September 15, 2016 19:44 - CONCLUSION: Mild cardiomegaly. Clear lungs. Brayden Rowell Jr., MD Assessment and Plan Problem List: (1) Atrial fibrillation with RVR Assessment and Plan: add metoprolol. DC dilt drip (2) CHF (congestive heart failure) Assessment and Plan: improved. Change diuretic to PO (3) Hypokalemia Assessment and Plan: PO KCL Randall Gandara MD Sep 17, 2016 10:16
[2016-09-17 12:00] VITALS: BP 135/62; PULSE 79; RESP 16; TEMP 98.2; O2SAT 97
--- NOTE | 2016-09-17 12:40 | HHI.PR ---
Subjective Remarks Follow up for Afib. Patient is doing well. Off drips. HR well controlled. No CP , SOB, fever, chills. Objective Vitals Vital Signs Date Time Temp Pulse Resp B/P Pulse Ox O2 Delivery O2 Flow Rate FiO2 09/17/16 09:05 Room Air 09/17/16 08:10 69 09/17/16 08:00 98.1 70 16 127/73 93 09/17/16 04:00 98.7 75 22 120/68 92 09/17/16 04:00 73 09/17/16 04:00 Room Air 09/17/16 00:00 98.5 71 22 106/64 98 09/17/16 00:00 Room Air 09/17/16 00:00 69 09/16/16 21:58 Room Air 09/16/16 21:58 98.5 84 18 113/63 96 09/16/16 20:00 81 09/16/16 16:07 98.2 85 18 112/69 95 I/O 09/16/16 09/16/16 09/16/16 09/17/16 09/17/16 09/17/16 07:00 15:00 23:00 07:00 15:00 23:00 Intake Total 477 ml 520 ml 974 ml 120 ml Output Total 2700 ml 1350 ml 400 ml Balance 477 ml -2180 ml -376 ml -280 ml Intake Oral 360 ml 380 ml 720 ml 120 ml IV Total 117 ml 140 ml 254 ml Output Urine Total 2700 ml 1350 ml 400 ml # Voids 0 # Bowel Movements 0 2 0 0 Result Diagram: 09/16/16 0153 09/17/16 0609 Imaging Last Impressions Chest X-Ray 09/15/161927 Signed Impressions: Service Date/Time: Thursday, September 15, 2016 19:44 - CONCLUSION: Mild cardiomegaly. Clear lungs. Brayden Rowell Jr., MD Objective Remarks GENERAL: Alert, Oriented x 3, NAD. SKIN: Warm and dry. HEAD: Normocephalic. EYES: No scleral icterus. No injection or drainage. NECK: Supple, trachea midline. No JVD or lymphadenopathy. CARDIOVASCULAR: Regular rate and rhythm without murmurs, gallops, or rubs. RESPIRATORY: Breath sounds equal bilaterally. No accessory muscle use. GASTROINTESTINAL: Abdomen soft, non-tender, nondistended. MUSCULOSKELETAL: No cyanosis, or edema. BACK: Nontender without obvious deformity. No CVA tenderness. Procedures None. A/P Problem List: (1) Atrial fibrillation with RVR ICD Code: I48.91 Status: Acute (2) Hypokalemia ICD Code: E87.6 Status: Acute (3) Hypocalcemia ICD Code: E83.51 Status: Acute (4) CHF (congestive heart failure) ICD Code: I50.9 Status: Acute Assessment and Plan Mr. Polk, 46 with a history of chronic Afib, cardiomyopathy admitted to the hospital due to alcoholism, afib. - Atrial fibrillation with RVR - Congestive heart failure - systolic, chronic. - Heart rate well controlled. - Continue Diltiazem 180mg Qday and Metoprolol 25mg BID. Continue Digoxin. - Continue Apixaban 5mg BID. - Continue Lasix 20mg PO BID. - Hypokalemia - K+ 3.3. - Continue KCL supplements. - Alcoholism - Encouraged patient to abstain from alcohol. Continue Folic acid, thiamine. Discharge patient to home Condition on discharge: Improved Regular Diet as tolerated Ad Fe activity Rx written: New Medications: Folic Acid (Folate) 1 Mg Tab 1 MG PO DAILY Nutritional Supplement #30 Ref 0 TAB Furosemide 20 Mg Tab 20 MG PO BID Fluid #60 Ref 0 TAB Potassium Chloride ER (K-Tab) 20 Meq Tab 20 MEQ PO DAILY Electrolyte Replacement #30 Ref 0 TAB Diltiazem CD 24 HR (Cardizem CD 24 HR) 180 Mg Caper 180 MG PO DAILY Afib #30 CAP Metoprolol Tartrate 25 Mg Tab 25 MG PO Q12HR Afib #60 TAB Thiamine HCl (Gnp Vitamin B-1) 100 Mg Tab 100 MG PO DAILY vitamin #30 TAB Continued Medications: Albuterol 18 GM Inh (Ventolin Hfa 18 GM Inh) 90 Mcg/Act Aer 2 PUFF INH Q4-6H PRN SHORTNESS OF BREATH #1 Ref 3 INHALER Apixaban (Eliquis) 5 Mg Tab 5 MG PO BID atrial fibrillation #30 Ref 3 TAB Follow-up with primary care physician within one week. Luda Newton DO Sep 17, 2016 12:40 pm
[2016-09-17] MEDS ORDERED: METO25TA3 PO (12:45)
[2016-09-17] MEDS ORDERED: FOLI1TAB4 PO (12:45)
[2016-09-17] MEDS ORDERED: GNP100TA3 PO (12:45)
[2016-09-17] MEDS ORDERED: CARD180C5 PO (12:45)
[2016-09-17] MEDS ORDERED: FURO20TA PO (12:45)
[2016-09-17] MEDS ORDERED: POTA1TAB4 PO ×2 (12:49→12:50)
== END 2016-09-17 17:48 | disposition home or self-care (01) | DRG 308 ==
LOC: NEPC 19:12 → NEDA 22:34 → OBSVTOIN 23:13 → N04B 09-16 01:20
PROVIDERS: ADMIT Hospitalist; ATTEND Hospitalist
DX: I48.0 Paroxysmal atrial fibrillation (principal); I50.23 Acute on chronic systolic (congestive) heart failure; I42.0 Dilated cardiomyopathy; Z86.74 Personal history of sudden cardiac arrest; E83.51 Hypocalcemia; F17.210 Nicotine dependence, cigarettes, uncomplicated; M19.90 Unspecified osteoarthritis, unspecified site; Z86.14 Personal history of Methicillin resistant Staphylococcus aureus infection; E87.6 Hypokalemia; Y90.8 Blood alcohol level of 240 mg/100 ml or more; Z59.0 Homelessness; Z82.49 Family history of ischemic heart disease and other diseases of the circulatory system; F12.90 Cannabis use, unspecified, uncomplicated; F10.20 Alcohol dependence, uncomplicated
CPT/HCPCS: 71010; 80048; 80053; 80162; 80307; 81001; 82550; 82552; 83735; 83880; 84484; 85025; 85610; 85730; 93005; 96374; G0378; J0610; J1940; J2060; J3411; J3475

== ENCOUNTER 2016-10-31 06:19 | Emergency (ER) | payer OTHER ==
[~2016-10-31] VITALS: Ht 175.3 cm; Wt 89.0 kg
[~2016-10-31 06:19] MED LIST changes: +CARD180C5 PO; +FOLI1TAB4 PO; +FURO20TA PO; +GNP100TA3 PO; +METO25TA3 PO; +POTA1TAB4 PO
[2016-10-31 06:26] VITALS: BP 99/65; PULSE 104; RESP 18; TEMP 98.3; O2SAT 95
[2016-10-31 08:00] VITALS: BP 101/60; PULSE 94; RESP 17; O2SAT 97
[2016-10-31] MEDS ORDERED: TETANUS/DIPHTHERIA TOXOID ADULT 0.5 ML VIAL IM ONE (08:15)
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
[2016-10-31] MEDS ORDERED: LIDOCAINE HCL 1% 50 ML VIAL INFIL ONE (08:30)
--- NOTE | 2016-10-31 08:47 | PD ---
Physical Exam Date Seen by Provider: Oct 31, 2016 Time Seen by Provider: 08:43 Narrative I was asked by Dr. Curran to perform laceration repair to patient's left lower lip. Please refer to her note for full HPI. Data Data Last Documented VS Vital Signs Date Time Temp Pulse Resp B/P Pulse Ox O2 Delivery O2 Flow Rate FiO2 10/31/16 08:00 94 17 101/60 97 Room Air 10/31/16 06:26 98.3 Orders Electrocardiogram (10/31/16 06:37) Ct Brain W/O Iv Contrast(Rout) (10/31/16 08:11) Ct Facial Bones W/O Iv Cont (10/31/16 08:11) Tetanus/Diphtheria Tox Adult (Tetanus/Di (10/31/16 08:15) Lidocaine 1% Inj (50 Ml) (Xylocaine 1% I (10/31/16 08:30) MDM Medical Record Reviewed: Yes Supervised Visit with MECHELLE: No Differential Diagnosis lip laceration Narrative Course Patient gave verbal consent to laceration repair. Patient tolerated procedure without incident. he thanked me for his care Procedures Procedure Narrative LACERATION LOCATION: Left lower lip LENGTH: 1.4 cm NUMBER OF STITCHES/DON: 6 REPAIR: The area of the laceration was prepped with Betadine and sterilely draped. The laceration was infiltrated with 1% lidocaine. The wound was copiously irrigated and explored without evidence of foreign body, tendon injury or neurovascular injury. The wound was closed using 5-0 chromic gut. This was a single layer repair. A sterile dressing was applied. The patient was advised to keep the dressing clean and dry. Patient tolerated the procedure well. Additional Instruction: These sutures will dissolve on their own. Condition: Stable Erin Huff Oct 31, 2016 08:47
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
--- NOTE | 2016-10-31 12:48 | EKG ---
Date Performed: 10/31/2016 Time Performed: 06:37:07 PTAGE: 46 years EKG: ATRIAL FIBRILLATION LEFT ANTERIOR FASCICULAR BLOCK Compared to prior tracing no significant change ABNORMAL ECG PREVIOUS TRACING : 09/16/16 @ 0813 DOCTOR: Patrick Campbell Interpretating Date/Time 10/31/2016 12:43:28
--- NOTE | 2016-11-01 12:45 | EKG ---
Date Performed: 10/31/2016 Time Performed: 09:06:50 PTAGE: 46 years EKG: ATRIAL FIBRILLATION MARKED LEFT AXIS DEVIATION MODERATE INTRAVENTRICULAR CONDUCTION DELAY C ompared to prior tracing no significant change ABNORMAL ECG PREVIOUS TRACING : 10/31/2016 06.37 DOCTOR: Patrick Campbell Interpretating Date/Time 11/01/2016 12:36:43
== END 2016-10-31 21:20 | disposition home or self-care (01) ==
LOC: NEPC 06:19
DX: S01.511A Laceration without foreign body of lip, initial encounter (principal); F10.10 Alcohol abuse, uncomplicated; R94.31 Abnormal electrocardiogram [ECG] [EKG]; I10 Essential (primary) hypertension; E78.00 Pure hypercholesterolemia, unspecified; F17.200 Nicotine dependence, unspecified, uncomplicated; Y04.2XXA Assault by strike against or bumped into by another person, initial encounter; Z23 Encounter for immunization; Z87.39 Personal history of other diseases of the musculoskeletal system and connective tissue; Z86.79 Personal history of other diseases of the circulatory system; Z86.59 Personal history of other mental and behavioral disorders; Z87.09 Personal history of other diseases of the respiratory system; Z87.19 Personal history of other diseases of the digestive system; Z86.69 Personal history of other diseases of the nervous system and sense organs
CPT/HCPCS: 12011; 70450; 70486; 90471; 90714; 93005

== ENCOUNTER 2016-12-02 11:38 | Inpatient (IN) | payer OTHER ==
[2016-12-02] VITALS (8 sets, daily range): BP systolic 102–112; BP diastolic 63–83; PULSE 82–109; RESP 16–21; TEMP 97–98.1; O2SAT 91–98
[~2016-12-02] VITALS: Ht 175.3 cm; Wt 82.2 kg
[~2016-12-02 11:38] MED LIST changes: -CANEMIS; -FOLI1TAB4 PO
[2016-12-02] MEDS ORDERED: ASPIRIN 325 MG TAB PO ONE (13:15)
[2016-12-02 13:44] LABS: AUTOMATED NEUTROPHIL # 4.1 TH/MM3 (1.8-7.7); BASOPHIL # 0.1 TH/MM3 (0-0.2); BASOPHIL % 0.9 % (0.0-2.0); EOSINOPHIL % 0.5 % (0.0-4.0); HEMATOCRIT 44.6 % (39.0-51.0); LYMPH % 28.8 % (9.0-44.0); LYMPHOCYTE # 1.8 TH/MM3 (1.0-4.8); MEAN CELL VOLUME 96.4 FL (80.0-100.0); MEAN CORPUSCULAR HEMOGLOBIN 32.8 PG (27.0-34.0); MEAN CORPUSCULAR HGB CONC 34.1 % (32.0-36.0); MONO % 6.4 % (0.0-8.0); NEUT % 63.4 % (16.0-70.0); PLATELET COUNT 93 TH/MM3 (150-450); RED BLOOD COUNT 4.63 MIL/MM3 (4.50-5.90); RED CELL DISTRIBUTION WIDTH 13.5 % (11.6-17.2); WHITE BLOOD COUNT 6.4 TH/MM3 (4.0-11.0)
[2016-12-02 13:49] LABS: HEMO FLAGS AUTO DIFF
[2016-12-02 13:50] LABS: APTT (PATIENT) 31.3 SEC (24.3-30.1); INTERNATIONAL NORMALIZED RATIO 1.2 RATIO; PROTHROMBIN TIME - PATIENT 13.2 SEC (9.8-11.6)
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
--- NOTE | 2016-12-02 14:08 | RADRPT ---
EXAM DATE/TIME: 12/02/2016 14:01 [facility] COMPARISON: CHEST SINGLE AP, September 15, 2016, 19:44. INDICATIONS : Chest pain middle to left side. Short of breath and dizziness. MEDICAL HISTORY : Chronic obstructive pulmonary disease. Seizures. Cardiovascular disease Hypertension. SURGICAL HISTORY : Colostomy. ENCOUNTER: Initial ACUITY: 1 day PAIN SCORE: 7/10 LOCATION: Left chest FINDINGS: There is mild cardiomegaly. The lungs are otherwise clear. Visualized bony structures are grossly int act. CONCLUSION: 1. Cardiomegaly. No acute abnormality. Stable compared to previous. Rl Lee MD on December 02, 2016 at 14:06 Board Certified Radiologist. This report was verified electronically.
[2016-12-02] MEDS ORDERED: SODIUM CHLOR 0.9% 1000 ML INJ 1,000 ML IV SCH (14:15)
[2016-12-02 14:21] LABS: ANION GAP 10 MEQ/L (5-15); BICARBONATE 24.9 MEQ/L (21.0-32.0); BLOOD UREA NITROGEN 9 MG/DL (7-18); CHLORIDE 108 MEQ/L (98-107); GLOMERULAR FILTRATION RATE 117 ML/MIN (>89); MAGNESIUM 1.2 MG/DL (1.5-2.5); SODIUM (NA) 143 MEQ/L (136-145)
[2016-12-02 14:28] LABS: CREATINE KINASE 191 U/L (39-308)
[2016-12-02 14:35] LABS: ALCOHOL 485 MG/DL (0-5)
[2016-12-02 14:36] LABS: PLATELET ESTIMATE SMEAR LOW (NORMAL); PLATELET MORPHOLOGY NORMAL (NORMAL); SCAN/DIFF AUTO DIFF CONFIRMED
[2016-12-02 14:38] LABS: CALCIUM-PROTEIN CORRECTED 6.9 MG/DL (8.5-10.1)
[2016-12-02 15:04] LABS: CKMB 1.8 NG/ML (0.5-3.6)
[2016-12-02] MEDS ORDERED: POTASSIUM CHLORIDE 20 MEQ CONTROLLED RELEASE TAB PO ONE (15:15)
--- NOTE | 2016-12-02 15:49 | HHI.HP ---
HPI Service Family Medicine Primary Care Physician No Primary Care Physician Admission Diagnosis NSTEMI, a. fib, non compliance, Alcohol intoxication Diagnoses: Chief Complaint: chest pain International Travel<30 Days: No Contact w/Intl Traveler<30days: No Known Affected Area: No History of Present Illness This is a 46-year-old male with history of atrial fibrillation, CHF, WI presents with chest pain. Patient presents by ambulance. Patient states that the chest pain started last night around 10 PM. Was constant through this morning. He not get much sleep. States the pain is mainly in the middle of the chest and the left lower chest. Describes it as a crushing pain. Rates it as 8 out of 10. Says the pain has stayed the same, not worsening or improving. Also endorses shortness of breath with the pain. He states the pain shoots down his left arm. No other radiating pain. Has been feeling nauseous and sweaty. States he's also having some blurry vision lately. Of note, patient was recently admitted in August and discharged with several medication, however he has not taken them. She is currently homeless and does not have any money for the medications. He states he did drink a beer today. Denies any chest pain or shortness of breath at rest. He is worried he had heart attack. (Kris Stanley MD, R2) Review of Systems Constitutional: DENIES: Fever, Chills Eyes: DENIES: Vision loss Ears, nose, mouth, throat: DENIES: Throat pain Respiratory: COMPLAINS OF: Cough, Shortness of breath, DENIES: Sputum production Cardiovascular: COMPLAINS OF: Chest pain, Palpitations, DENIES: Syncope, Lower Extremity Edema Gastrointestinal: COMPLAINS OF: Abdominal pain, Nausea, DENIES: Constipation, Diarrhea, Vomiting Genitourinary: DENIES: Dysuria Musculoskeletal: DENIES: Back pain, Neck pain Integumentary: DENIES: Nail changes, Rash Hematologic/lymphatic: DENIES: Bruising, Lymphadenopathy Neurologic: DENIES: Abnormal gait, Headache Psychiatric: COMPLAINS OF: Mood changes (Kris Stanley MD, R2) Past Family Social History Past Medical History History of intubation and mechanical ventilationon July 01, 2016from PEA cardiac arrest. Extubated on July 03, 2016. Dilated cardiomyopathyEF of 29% with global hypokinesisby myocardial perfusion scan and also by echo Atrial fibrillation Seizure disorder-been on meds in the past Diverticulosis [place] Past Surgical History Partial colectomy 2004 Reported Medications Reported Meds & Active Scripts Active No Active Prescriptions or Reported Medications Dc'd with Albuterol inhaler Eliquis 5mg BID Lipitor 20mg daily Digoxin 0.125mg daily Cardizem CD 180mg daily Lasix 20mg BID Magnesium oxide 800mg BID Metoprolol tartrate 25mg BID KCl 20meq daily Thiamine 100mg daily (Kris Stanley MD, R2) Allergies: Coded Allergies: *MDRO Multi-Drug Resistant Organism (Verified Adverse Reaction, Unknown, ) MRSA PCR Screen POSITIVE - 07/02/2016, 08/19/2016 MRSA (sputum)-07/02/16 Active Ordered Medications Active Medications Aspirin 325 mg 325 mg ONCE ONCE PO Last administered on 12/02/16 13:37; Admin Dose 325 MG; Start 12/02/16 at 13:15; Stop 12/02/16 at 13:16; Status DC Potassium Chloride (KCl) 40 meq ONCE ONCE PO Last administered on 12/02/16 15: 25; Admin Dose 40 MEQ; Start 12/02/16 at 15:15; Stop 12/02/16 at 15:16; Status DC Sodium Chloride (NS 1000 ml Inj) 1,000 ml @ 1,000 mls/hr Q1H IV Last administered on 12/02/16 14:49; Admin Dose 1,000 MLS/HR; Start 12/02/16 at 14: 15; Stop 12/02/16 at 15:14; Status DC Family History Parents-both with WI Sibling-passed from [place] at 39 Social History Currently homeless Drinks 8 beers 4x/week Smokes 1/2 PPD since 1991 Denies illicit drug use, history of them in (Kris Stanley MD, R2) Physical Exam Vital Signs Vital Signs Date Time Temp Pulse Resp B/P Pulse Ox O2 Delivery O2 Flow Rate FiO2 12/02/16 15:27 106 21 98 Room Air 12/02/16 15:27 102 16 112/83 96 Room Air 12/02/16 11:50 110 16 97 Room Air 12/02/16 11:46 98.1 109 16 112/82 97 Physical Exam GENERAL: Not diaphoretic. Negative Lavines sign. No acute distress. EYES: PERRLA. EOMI. Lids and conjunctivae reveal no gross abnormality. No scleral icterus. ENT: Hearing adequate. Head NCAT. MMM. OP/OC clear. No cervical or supraclavicular LAD. NECK: No JVD. Neck supple, no masses. Trachea midline. No thyromegaly. RESPIRATORY: Diffuse wheezing bilaterally. Decreased breath sounds. CARDIOVASCULAR: Regular rate and rhythm, no murmurs or rubs. Radial and DP pulses 2+ and symmetric bilaterally. Brisk capillary refill. ABDOMEN: S/ NT/ND. Bowel sounds x 4. No masses or pulsations present. No hepatosplenomegaly. EXTREMITIES: No remarkable dependent edema or varicosities. No clubbing, cyanosis, or erythema. MUSCULOSKELETAL: MAEW without significant joint pain or deformity. No calf tenderness. SKIN: Essentially clear with no significant rash or lesions. Adequate skin turgor. NEUROLOGICAL: NFND. Normal speech. PSYCHIATRIC: Mental status normal for age. Laboratory Laboratory Tests Test 12/02/16 13:00 White Blood Count 6.4 Red Blood Count 4.63 Hemoglobin 15.2 Hematocrit 44.6 Mean Corpuscular Volume 96.4 Mean Corpuscular Hemoglobin 32.8 Mean Corpuscular Hemoglobin 34.1 Concent Red Cell Distribution Width 13.5 Platelet Count 93 Mean Platelet Volume 7.2 Neutrophils (%) (Auto) 63.4 Lymphocytes (%) (Auto) 28.8 Monocytes (%) (Auto) 6.4 Eosinophils (%) (Auto) 0.5 Basophils (%) (Auto) 0.9 Neutrophils # (Auto) 4.1 Lymphocytes # (Auto) 1.8 Monocytes # (Auto) 0.4 Eosinophils # (Auto) 0.0 Basophils # (Auto) 0.1 CBC Comment AUTO DIFF Differential Comment AUTO DIFF CONFIRMED Platelet Estimate LOW Platelet Morphology Comment NORMAL Red Cell Morphology Comment NORMAL Prothrombin Time 13.2 Prothromb Time International 1.2 Ratio Activated Partial 31.3 Thromboplast Time Sodium Level 143 Potassium Level 3.0 Chloride Level 108 Carbon Dioxide Level 24.9 Anion Gap 10 Blood Urea Nitrogen 9 Creatinine 0.72 Estimat Glomerular Filtration 117 Rate Random Glucose 81 Calcium Level 7.0 Protein Corrected Calcium 6.9 Magnesium Level 1.2 Total Creatine Kinase 191 Creatine Kinase MB 1.8 Troponin I 0.14 B-Type Natriuretic Peptide 146 Total Protein 7.4 Thyroid Stimulating Hormone 0.432 3rd Gen Ethyl Alcohol Level 485 (Kris Stanley MD, R2) Result Diagram: 12/02/16 1300 12/02/16 1300 Imaging Last Impressions Chest X-Ray 12/02/16 1256 Signed Impressions: Service Date/Time: Wednesday, December 02, 2016 14:01 - CONCLUSION: 1. Cardiomegaly. No acute abnormality. Stable compared to previous. Rl Lee MD (Kris Stanley MD, R2) Assessment and Plan Assessment and Plan 46-year-old male with history of COPD, [place], CHF, atrial fibrillation presents with chest pain. Mildly elevated troponin with elevated alcohol level and atrial fibrillation on EKG. We'll admit for ACS rule out and management of cardiac disease. Code Status Full Discussed Condition With Dr. Rosario, Dr. Gonzalez (Kris Stanley MD, R2) Attending Attestation THIS CASE WAS DISCUSSED WITH THE RESIDENT PHYSICIANS. I HAVE REVIEWED THE RECORD AND AGREE WITH THE ABOVE NOTE AND PLAN OF CARE WAS DISCUSSED. I HAVE AUTHORIZED THE ORDER FOR ADMISSION TO AN IN-PATIENT STATUS. (Mathew Gonzalez MD) Problem List: (1) Chest pain Status: Acute Plan: DDx includes ACS, GERD, PE, pneumonia, panic attack, myocarditis, costochondritis. CAD risk factors include smoking hx, FH of WI, HTN, HLD Previous ECHO on 07/02/16 showed EF 30-35%. EKG showed atrial fibrillation without ST changes. CXR showed cardiomegaly, no acute disease. -Initial Trop 0.14. Trend John and EKGs x 2. -UDS pending -Supplemental O2. Daily aspirin. Protonix -Morphine 2mg Q2 hrs PRN chest pain only. -Metoprolol 25 PO BID aleisha (hold for low BP and HR). -Hold NTG due to low BP -Telemetry -Consult cardiology. NPO for now in case of PCI. -AM BMP + Mg to detect/correct electrolyte abnormalities that could lower arrhythmia threshold. (2) Atrial fibrillation Status: Acute Plan: History of chronic atrial fibrillation. Last admission did have RVR. Rate is controlled on this admission in low 100s. Was discharged on last hospitalization with Cardizem, but has not taken since discharge. Patient also discharge with Eliquis and has not not been taking. EKG shows atrial fibrillation. -Monitor HR -ACS rule out as above -Cardizem PO -Consult cardiology as above -Will need to be anticoagulated (3) Alcohol intoxication Status: Acute Plan: Alcohol level of 485 on admission. Pt states he only drank 1 beer today. Does endorse drinking 6-8 beers/day 4 days a week. -[facility] protocol to monitor for withdrawal -Rally pack -Continue to monitor (4) Hypomagnesemia Status: Acute Plan: Magnesium level 1.2 on admission. History of hypomagnesia. -Replacing with 4g Mg sulfate -Recheck in AM (5) Hypokalemia Status: Acute Plan: Potassium of 3.0 on admission. -Replacing with oral KCl -Daily BMP (6) FEN/PPX Status: Acute Plan: Fluids: None Electrolytes: see above, continue to monitor Nutrition: NPO for possible intervention DVT ppx: Heparin GI ppx: Protonix (Kris Stanley MD, R2) Physician Certification 2 Midnight Certification Type: Admission for Inpatient Services Order for Inpatient Services The services are ordered in accordance with Medicare regulations or non- Medicare payer requirements, as applicable. In the case of services not specified as inpatient-only, they are appropriately provided as inpatient services in accordance with the 2-midnight benchmark. Estimated LOS (days): 2 days is the estimated time the patient will need to remain in the hospital, assuming treatment plan goals are met and no additional complications. Post-Hospital Plan: Home (Kris Stanley MD, R2) Problem Qualifiers (1) Chest pain: Qualified Code: R07.89 - Other chest pain (2) Atrial fibrillation: Qualified Code: I48.2 - Chronic atrial fibrillation (3) Alcohol intoxication: Qualified Code: F10.920 - Alcoholic intoxication without complication Kris Stanley MD, R2 Dec 02, 2016 15:49 Mathew Gonzalez MD Dec 03, 2016 11:21
[2016-12-02] MEDS ORDERED: SODIUM CHLORIDE 0.9% FLUSH 10 ML FLUSH IV FLUSH PRN (16:00)
[2016-12-02] MEDS ORDERED: LORazepam 2 MG TAB PO PRN (16:30)
[2016-12-02] MEDS ORDERED: FLUMAZENIL 0.5 MG/5 ML VIAL IV PUSH PRN (16:30)
[2016-12-02] MEDS ORDERED: LORazepam 2 MG/ML VIAL IV PUSH PRN ×4 (16:30)
[2016-12-02] MEDS ORDERED: MAGNESIUM SULFATE 4 GM PREMIX 100 ML IV ONE (16:45)
[2016-12-02] MEDS ORDERED: LACTULOSE SYRUP 20 GM/30 ML CUP PO PRN (17:00)
[2016-12-02] MEDS ORDERED: MORPHINE SULFATE 4 MG/ML INJ IV PRN (17:00)
[2016-12-02] MEDS ORDERED: BISACODYL 10 MG SUPP RECTAL PRN (17:00)
[2016-12-02] MEDS ORDERED: MAGNESIUM HYDROXIDE SUSP 30 ML CUP PO PRN (17:00)
[2016-12-02] MEDS ORDERED: ONDANSETRON HCL 4 MG/2 ML VIAL IV PRN (17:00)
[2016-12-02] MEDS ORDERED: CALCIUM CARBONATE 1.25 GM (CA 500 MG) TAB PO ONE (17:30)
[2016-12-02] MEDS ORDERED: DILTIAZEM HCL 25 MG/5 ML VIAL IVP ONE (17:45)
[2016-12-02] MEDS ORDERED: MAGNESIUM SULFATE 1 GM PREMIX 100 ML IV SCH (18:00)
[2016-12-02] MEDS ORDERED: RESP: ALBUTEROL 2.5 MG/3 ML NEB (PRN) NEB (18:00)
[2016-12-02] MEDS ORDERED: DILTIAZEM INJ 125 MG in SODIUM CHLORIDE 0.9% INJ 100 ML IV SCH (18:00)
[2016-12-02] MEDS ORDERED: PANTOPRAZOLE SOD 40 MG DELAYED RELEASE TAB PO ONE (18:00)
[2016-12-02] MEDS ORDERED: ICU - MAGNESIUM SULFATE 4 GM/NS 100 ML IV ONE ×2 (18:15)
[2016-12-02] MEDS: RESP: ALBUTEROL 2.5 MG/IPRATROPIUM 0.5 MG NEB (SCH) NEB (19:17)
[2016-12-02] MEDS: SODIUM CHLORIDE 0.9% FLUSH 10 ML FLUSH IV FLUSH SCH (20:56)
[2016-12-02] MEDS ORDERED: SENNOSIDES 8.6 MG TAB PO PRN (21:00)
[2016-12-02] MEDS ORDERED: METOPROLOL TARTRATE 25 MG TAB PO SCH ×2 (21:00)
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
[2016-12-02] MEDS: METOPROLOL TARTRATE 25 MG TAB PO SCH (21:43)
[2016-12-02] MEDS: ATORVASTATIN 40 MG TAB PO SCH (21:43)
[2016-12-02] MEDS: DOCUSATE SODIUM 50 MG/SENNA 8.6 MG TAB PO SCH (21:43)
[2016-12-02] MEDS: HEPARIN SODIUM - SQ 10,000 UNITS/ML VIAL SQ SCH (21:43)
[2016-12-02] MEDS: DILTIAZEM HCL 60 MG TAB PO SCH (21:43)
[2016-12-03] VITALS (8 sets, daily range): BP systolic 93–117; BP diastolic 55–67; PULSE 64–76; RESP 18–20; TEMP 97.7–99.7; O2SAT 90–96
[2016-12-03] MEDS: DILTIAZEM HCL 60 MG TAB PO SCH (05:32)
[2016-12-03 05:52] LABS: AUTOMATED NEUTROPHIL # 6.1 TH/MM3 (1.8-7.7); BASOPHIL # 0.1 TH/MM3 (0-0.2); BASOPHIL % 1.5 % (0.0-2.0); EOSINOPHIL % 0.1 % (0.0-4.0); HEMATOCRIT 46.2 % (39.0-51.0); LYMPH % 22.1 % (9.0-44.0); LYMPHOCYTE # 1.9 TH/MM3 (1.0-4.8); MEAN CELL VOLUME 96.3 FL (80.0-100.0); MEAN CORPUSCULAR HEMOGLOBIN 33.6 PG (27.0-34.0); MEAN CORPUSCULAR HGB CONC 34.9 % (32.0-36.0); MONO % 5.1 % (0.0-8.0); NEUT % 71.2 % (16.0-70.0); PLATELET COUNT 95 TH/MM3 (150-450); RED BLOOD COUNT 4.79 MIL/MM3 (4.50-5.90); RED CELL DISTRIBUTION WIDTH 13.6 % (11.6-17.2); WHITE BLOOD COUNT 8.6 TH/MM3 (4.0-11.0)
[2016-12-03 05:57] LABS: HEMO FLAGS AUTO DIFF
[2016-12-03 06:24] LABS: BICARBONATE 23.4 MEQ/L (21.0-32.0); HDL CHOLESTEROL 38.5 MG/DL (40.0-60.0); MAGNESIUM 1.4 MG/DL (1.5-2.5); POTASSIUM 3.7 MEQ/L (3.5-5.1)
[2016-12-03 06:58] LABS: PLATELET ESTIMATE SMEAR LOW (NORMAL); PLATELET MORPHOLOGY NORMAL (NORMAL); SCAN/DIFF AUTO DIFF CONFIRMED
--- NOTE | 2016-12-03 07:10 | PD.CARD.PN ---
Subjective Subjective Remarks sharp pain in chest brief intermittent - no typical angina Objective Medications Current Medications Medications (Trade) Dose Ordered Sig/Naren Route Start Time Stop Time Status Last Admin (NS Flush) 2 ml BID IV FLUSH 12/02/16 21:00 12/02/16 20:56 (NS Flush) 2 ml UNSCH PRN IV FLUSH 12/02/16 16:00 (Ecotrin Ec) 325 mg DAILY PO 12/03/16 09:00 (Morphine Inj) 2 mg Q30M PRN IV 12/02/16 17:00 (Tylenol) 650 mg Q6H PRN PO 12/02/16 17:00 (Zofran Inj) 4 mg Q6H PRN IV 12/02/16 17:00 (Lipitor) 40 mg HS PO 12/02/16 21:00 12/02/16 21:43 (Heparin Inj) 5,000 units Q12HR SQ 12/02/16 21:00 12/02/16 21:43 (Romazicon Inj) 0.2 mg Q1M PRN IV PUSH 12/02/16 16:30 (Ativan) 1 mg Q4H PRN PO 12/02/16 16:30 (Ativan Inj) 1 mg Q4H PRN IV PUSH 12/02/16 16:30 (Ativan) 2 mg Q2H PRN PO 12/02/16 16:30 (Ativan Inj) 2 mg Q2H PRN IV PUSH 12/02/16 16:30 12/02/16 20:31 (Ativan Inj) 2 mg Q1H PRN IV PUSH 12/02/16 16:30 (Ativan Inj) 2 mg Q15M PRN IV PUSH 12/02/16 16:30 (Sarah-Colace) 1 tab BID PO 12/02/16 21:00 12/02/16 21:43 (Milk Of Magnesia Liq) 30 ml Q12HR PRN PO 12/02/16 17:00 (Senokot) 17.2 mg Q12HR PRN PO 12/02/16 21:00 (Dulcolax Supp) 10 mg DAILY PRN RECTAL 12/02/16 17:00 (Lactulose Liq) 30 ml DAILY PRN PO 12/02/16 17:00 Diltiazem HCl 60 mg 60 mg Q8HR PO 12/02/16 22:00 12/03/16 05:32 (Cardizem Inj/NS Inj) 125 ml @ 0 mls/hr TITRATE IV 12/02/16 18:00 12/02/16 20:56 Metoprolol Tartrate 25 mg 25 mg Q12HR PO 12/02/16 21:00 12/02/16 21:43 (Magnesium Sulfate 1 Gm Premix) 100 ml @ 100 mls/hr Q1H IV 12/03/16 07:00 12/03/16 08:59 Vital Signs / I&O Vital Signs Date Time Temp Pulse Resp B/P Pulse Ox O2 Delivery O2 Flow Rate FiO2 12/03/16 00:00 Room Air 12/02/16 23:05 85 12/02/16 23:00 Room Air 12/02/16 22:57 97.0 85 16 107/79 94 12/02/16 21:42 92 20 102/63 97 Room Air 12/02/16 19:39 82 20 105/70 98 Room Air 12/02/16 19:18 98 Nasal Cannula 12/02/16 18:40 91 21 12/02/16 15:27 106 21 98 Room Air 12/02/16 15:27 102 16 112/83 96 Room Air 12/02/16 11:50 110 16 97 Room Air 12/02/16 11:46 98.1 109 16 112/82 97 I/O 12/02/16 12/02/16 12/02/16 12/03/16 12/03/16 12/03/16 06:59 14:59 22:59 06:59 14:59 22:59 Intake Total 42 ml Balance 42 ml IV Total 42 ml Physical Exam GENERAL: Well developed, well nourished. No acute distress. HEENT: Jugular venous pressure is normal. CHEST: Lungs clear to auscultation bilaterally. Unlabored respiratory effort. CARDIAC: Irregularly irregular rate and rhythm without S3, S4, or murmur. ABDOMEN: Soft, nontender. Bowel sounds present. EXTREMITIES: No clubbing, cyanosis, or edema. Neuro: alert, no overt DT's yet Laboratory Laboratory Tests Test 12/02/16 12/02/16 12/02/16 12/03/16 13:00 17:49 22:30 04:35 White Blood Count 6.4 TH/MM3 8.6 TH/MM3 Red Blood Count 4.63 MIL/MM3 4.79 MIL/MM3 Hemoglobin 15.2 GM/DL 16.1 GM/DL Hematocrit 44.6 % 46.2 % Mean Corpuscular Volume 96.4 FL 96.3 FL Mean Corpuscular Hemoglobin 32.8 PG 33.6 PG Mean Corpuscular Hemoglobin 34.1 % 34.9 % Concent Red Cell Distribution Width 13.5 % 13.6 % Platelet Count 93 TH/MM3 95 TH/MM3 Mean Platelet Volume 7.2 FL 7.6 FL Neutrophils (%) (Auto) 63.4 % 71.2 % Lymphocytes (%) (Auto) 28.8 % 22.1 % Monocytes (%) (Auto) 6.4 % 5.1 % Eosinophils (%) (Auto) 0.5 % 0.1 % Basophils (%) (Auto) 0.9 % 1.5 % Neutrophils # (Auto) 4.1 TH/MM3 6.1 TH/MM3 Lymphocytes # (Auto) 1.8 TH/MM3 1.9 TH/MM3 Monocytes # (Auto) 0.4 TH/MM3 0.4 TH/MM3 Eosinophils # (Auto) 0.0 TH/MM3 0.0 TH/MM3 Basophils # (Auto) 0.1 TH/MM3 0.1 TH/MM3 CBC Comment AUTO DIFF AUTO DIFF Differential Comment AUTO DIFF AUTO DIFF CONFIRMED CONFIRMED Platelet Estimate LOW LOW Platelet Morphology Comment NORMAL NORMAL Red Cell Morphology Comment NORMAL NORMAL Prothrombin Time 13.2 SEC Prothromb Time International 1.2 RATIO Ratio Activated Partial 31.3 SEC Thromboplast Time Sodium Level 143 MEQ/L 144 MEQ/L Potassium Level 3.0 MEQ/L 3.7 MEQ/L Chloride Level 108 MEQ/L 108 MEQ/L Carbon Dioxide Level 24.9 MEQ/L 23.4 MEQ/L Anion Gap 10 MEQ/L 13 MEQ/L Blood Urea Nitrogen 9 MG/DL 11 MG/DL Creatinine 0.72 MG/DL 0.63 MG/DL Estimat Glomerular Filtration 117 ML/MIN 137 ML/MIN Rate Random Glucose 81 MG/DL 45 MG/DL Calcium Level 7.0 MG/DL 7.0 MG/DL Protein Corrected Calcium 6.9 MG/DL Magnesium Level 1.2 MG/DL 1.4 MG/DL Total Creatine Kinase 191 U/L Creatine Kinase MB 1.8 NG/ML Troponin I 0.14 NG/ML 0.11 NG/ML 0.18 NG/ML 0.15 NG/ML B-Type Natriuretic Peptide 146 PG/ML Total Protein 7.4 GM/DL Thyroid Stimulating Hormone 0.432 uIU/ML 3rd Gen Ethyl Alcohol Level 485 MG/DL Triglycerides Level 124 MG/DL Cholesterol Level 150 MG/DL LDL Cholesterol 87 MG/DL HDL Cholesterol 38.5 MG/DL Cholesterol/HDL Ratio 3.89 RATIO Assessment and Plan Problem List: (1) Elevated troponin Assessment and Plan: curve is flat, doubt IL (2) Atrial fibrillation Assessment and Plan: adjusted meds (3) Hypokalemia (4) Hypomagnesemia Assessment and Plan: repletion ordered (5) Noncompliance Assessment and Plan: Does not take meds reliably. Not a candidate for invasive eval (6) Cardiomyopathy Assessment and Plan: probably from alcohol (7) Chest pain Assessment and Plan: etiologu unclear. Check echo Problem Qualifiers (1) Atrial fibrillation: Qualified Code: I48.2 - Chronic atrial fibrillation (2) Chest pain: Qualified Code: R07.89 - Other chest pain Randall Gandara MD Dec 03, 2016 07:10
[2016-12-03] MEDS ORDERED: POTASSIUM CHLORIDE 25 MEQ EFFERVESCENT TAB PO ONE (07:15)
[2016-12-03 07:38] LABS: CALCIUM-PROTEIN CORRECTED 6.8 MG/DL (8.5-10.1)
[2016-12-03] MEDS: RESP: ALBUTEROL 2.5 MG/IPRATROPIUM 0.5 MG NEB (SCH) NEB ×4 (08:00→20:00)
[2016-12-03] MEDS ORDERED: DILTIAZEM-CD 240 MG CAP ER PO SCH (09:00)
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
--- NOTE | 2016-12-03 09:05 | EKG ---
Date Performed: 12/02/2016 Time Performed: 22:33:41 PTAGE: 46 years EKG: ATRIAL FIBRILLATION LEFT ANTERIOR FASCICULAR BLOCK ABNORMAL ECG PREVIOUS TRACING : 12/02/2016 19.27 Compared to prior tracing no significant change DOCTOR: Gurmeet Moeller Interpretating Date/Time 12/03/2016 08:58:44
--- NOTE | 2016-12-03 09:09 | EKG ---
Date Performed: 12/02/2016 Time Performed: 19:27:46 PTAGE: 46 years EKG: ATRIAL FIBRILLATION LEFT ANTERIOR FASCICULAR BLOCK ABNORMAL ECG PREVIOUS TRACING : 12/02/2016 13.01 Compared to prior tracing no significant change DOCTOR: Gurmeet Moeller Interpretating Date/Time 12/03/2016 09:01:48
--- NOTE | 2016-12-03 09:21 | EKG ---
Date Performed: 12/02/2016 Time Performed: 13:01:14 PTAGE: 46 years EKG: ATRIAL FIBRILLATION WITH RAPID VENTRICULAR RESPONSE MARKED LEFT AXIS DEVIATION POSSIBLE RIG HT VENTRICULAR CONDUCTION DELAY ABNORMAL ECG INTERPRETATION BASED ON A DEFAULT AGE OF 40 YEARS PREVIOUS TRACING : 10/31/2016 09.06 Compared to prior tracing no significant change DOCTOR: Gurmeet Moeller Interpretating Date/Time 12/03/2016 09:08:46
[2016-12-03] MEDS: MAGNESIUM SULFATE 1 GM PREMIX 100 ML IV SCH ×2 (09:25→13:18)
[2016-12-03] MEDS: METOPROLOL TARTRATE 25 MG TAB PO SCH ×2 (09:25→21:05)
[2016-12-03] MEDS: HEPARIN SODIUM - SQ 10,000 UNITS/ML VIAL SQ SCH ×2 (09:26→21:06)
[2016-12-03] MEDS: ASPIRIN EC 325 MG TABEC PO SCH (09:26)
[2016-12-03] MEDS: DOCUSATE SODIUM 50 MG/SENNA 8.6 MG TAB PO SCH ×2 (09:26→21:05)
[2016-12-03] MEDS: LORazepam 1 MG TAB PO PRN ×3 (09:46→21:05)
[2016-12-03] MEDS ORDERED: PILL SPLITTER OTHER PRN (11:00)
[2016-12-03] MEDS: LISINOPRIL 5 MG TAB PO SCH (13:19)
[2016-12-03] MEDS: CALCIUM CARBONATE 1.25 GM (CA 500 MG) TAB PO SCH ×2 (13:19→21:05)
[2016-12-03] MEDS: SODIUM CHLORIDE 0.9% FLUSH 10 ML FLUSH IV FLUSH SCH ×2 (13:19→21:05)
--- NOTE | 2016-12-03 16:26 | ECHRPT ---
Indication: Cardiomyopathy, unspecified CONCLUSIONS The left ventricular systolic function is iubhgylc-yt-[id number] reduced with an estimated ejection fra ction in the range of 35-40%. Mild concentric left ventricular hypertrophy. Normal left ventricular size. Mild aortic valve regurgitation. Mild mitral valve regurgitation. There is mild tricuspid valve regurgitation. The estimated pulmonary arterial pressure is 31 mmHg. BP: 107 / 79 HR: 85 Rhythm: Sinus MEASUREMENTS (Male / Female) Normal Values Technical Quality:Fair 2D ECHO LV Diastolic Diameter PLAX 4.8 cm 4.2 - 5.9 / 3.9 - 5.3 cm LV Systolic Diameter PLAX 4.1 cm IVS Diastolic Thickness 1.2 cm 0.6 - 1.0 / 0.6 - 0.9 cm LVPW Diastolic Thickness 1.2 cm 0.6 - 1.0 / 0.6 - 0.9 cm LV Relative Wall Thickness 0.5 LVOT Diameter 2.7 cm M-MODE Aortic Root Diameter MM 3.6 cm LA Systolic Diameter MM 2.9 cm LA Ao Ratio MM 0.8 AV Cusp Separation MM 2.0 cm DOPPLER AV Peak Velocity 115.0 cm/s AV Peak Gradient 5.3 mmHg AI Peak Velocity 207.0 cm/s AI Peak Gradient 17.1 mmHg AI Pressure Half Time 1019.0 ms LVOT Peak Velocity 92.1 cm/s LVOT Peak Gradient 3.4 mmHg AV Area Cont Eq pk 4.6 cm MR Peak Velocity 310.3 cm/s MR Peak Gradient 38.5 mmHg Mitral E Point Velocity 135.0 cm/s Mitral A Point Velocity 47.2 cm/s Mitral E to A Ratio 2.9 LV E' Lateral Velocity 11.7 cm/s Mitral E to LV E' Lateral Ratio 11.5 LV E' Septal Velocity 12.2 cm/s Mitral E to LV E' Septal Ratio 11.1 TR Peak Velocity 256.0 cm/s TR Peak Gradient 26.2 mmHg PV Peak Velocity 74.7 cm/s PV Peak Gradient 2.2 mmHg FINDINGS LEFT VENTRICLE The left ventricular systolic function is vjitudhe-td-amvswlk reduced with an estimated ejection fra ction in the range of 35-40%. Mild concentric left ventricular hypertrophy. Normal left ventricular size. RIGHT VENTRICLE Normal right ventricular size and systolic function. LEFT ATRIUM The left atrial size is normal. RIGHT ATRIUM The right atrial size is normal. ATRIAL SEPTUM Normal atrial septal thickness without atrial level shunting by limited color doppler interrogation. AORTA The aortic root and proximal ascending aorta are normal in size on limited imaging. MITRAL VALVE Mild mitral valve regurgitation. AORTIC VALVE Mild aortic valve regurgitation. TRICUSPID VALVE There is mild tricuspid valve regurgitation. The estimated pulmonary arterial pressure is 31 mmHg. PULMONARY VALVE The pulmonary valve is not well visualized. VESSELS The inferior vena cava is normal in size. PERICARDIUM No pericardial effusion. Axel Samayoa MD (Electronically Signed) Final Date:03 December 2016 16:25
[2016-12-03] MEDS: ATORVASTATIN 40 MG TAB PO SCH (21:05)
[2016-12-04] VITALS (10 sets, daily range): BP systolic 98–143; BP diastolic 59–96; PULSE 76–107; RESP 18–24; TEMP 97.9–99.8; O2SAT 86–98
[2016-12-04] MEDS: LORazepam 1 MG TAB PO PRN ×5 (00:28→21:02)
--- NOTE | 2016-12-04 08:36 | PD.CARD.PN ---
Subjective Subjective Remarks No chest pain. "I feel out of it". I asked him if he is experiencing alcohol withdrawal and he said yes Objective Medications Current Medications Medications (Trade) Dose Ordered Sig/Naren Route Start Time Stop Time Status Last Admin (NS Flush) 2 ml BID IV FLUSH 12/02/16 21:00 12/03/16 21:05 (NS Flush) 2 ml UNSCH PRN IV FLUSH 12/02/16 16:00 (Ecotrin Ec) 325 mg DAILY PO 12/03/16 09:00 12/03/16 09:26 (Morphine Inj) 2 mg Q30M PRN IV 12/02/16 17:00 (Tylenol) 650 mg Q6H PRN PO 12/02/16 17:00 (Zofran Inj) 4 mg Q6H PRN IV 12/02/16 17:00 (Lipitor) 40 mg HS PO 12/02/16 21:00 12/03/16 21:05 (Heparin Inj) 5,000 units Q12HR SQ 12/02/16 21:00 12/03/16 21:06 (Romazicon Inj) 0.2 mg Q1M PRN IV PUSH 12/02/16 16:30 (Ativan) 1 mg Q4H PRN PO 12/02/16 16:30 12/04/16 06:29 (Ativan Inj) 1 mg Q4H PRN IV PUSH 12/02/16 16:30 (Ativan) 2 mg Q2H PRN PO 12/02/16 16:30 (Ativan Inj) 2 mg Q2H PRN IV PUSH 12/02/16 16:30 12/02/16 20:31 (Ativan Inj) 2 mg Q1H PRN IV PUSH 12/02/16 16:30 (Ativan Inj) 2 mg Q15M PRN IV PUSH 12/02/16 16:30 (Sarah-Colace) 1 tab BID PO 12/02/16 21:00 12/03/16 21:05 (Milk Of Magnesia Liq) 30 ml Q12HR PRN PO 12/02/16 17:00 (Senokot) 17.2 mg Q12HR PRN PO 12/02/16 21:00 (Dulcolax Supp) 10 mg DAILY PRN RECTAL 12/02/16 17:00 (Lactulose Liq) 30 ml DAILY PRN PO 12/02/16 17:00 (Lopressor) 25 mg Q12HR PO 12/02/16 21:00 12/03/16 21:05 (Oscal) 1,000 mg Q12HR PO 12/03/16 09:00 12/03/16 21:05 (Prinivil) 2.5 mg DAILY PO 12/03/16 11:00 12/03/16 13:19 (Pill Splitter) 1 ea UNSCH PRN OTHER 12/03/16 11:00 Vital Signs / I&O Vital Signs Date Time Temp Pulse Resp B/P Pulse Ox O2 Delivery O2 Flow Rate FiO2 12/04/16 05:25 Room Air 12/04/16 04:00 98.8 77 24 112/59 92 12/04/16 00:00 Room Air 12/04/16 00:00 99.0 81 24 113/69 93 12/03/16 20:00 99.7 76 20 117/67 92 12/03/16 20:00 73 12/03/16 20:00 Room Air 12/03/16 16:41 96 Nasal Cannula 2.00 12/03/16 16:00 98.9 69 18 98/63 92 12/03/16 12:42 92 Nasal Cannula 2.00 12/03/16 12:00 98.5 75 18 107/61 90 12/03/16 09:37 64 12/03/16 09:37 Room Air I/O 12/03/16 12/03/16 12/03/16 12/04/16 12/04/16 12/04/16 07:00 15:00 23:00 07:00 15:00 23:00 Intake Total 42 ml 480 ml 224 ml 360 ml Output Total 0 ml Balance 42 ml 480 ml 224 ml 360 ml Intake Oral 0 ml 480 ml 220 ml 360 ml IV Total 42 ml 4 ml Output Urine Total 0 ml # Voids 2 2 2 # Bowel Movements 2 1 0 Physical Exam GENERAL: Well developed, well nourished. No acute distress. HEENT: Jugular venous pressure is normal. CHEST: Lungs clear to auscultation bilaterally. Unlabored respiratory effort. CARDIAC: Irregularly irregular rate and rhythm without S3, S4, or murmur. ABDOMEN: Soft, nontender. Bowel sounds present. EXTREMITIES: No clubbing, cyanosis, or edema. Neuro: sleeping, staying in bed, + tremor Laboratory Laboratory Tests Test 12/02/16 12/03/16 13:00 04:35 Prothrombin Time 13.2 SEC Prothromb Time International 1.2 RATIO Ratio Activated Partial 31.3 SEC Thromboplast Time Total Creatine Kinase 191 U/L Creatine Kinase MB 1.8 NG/ML B-Type Natriuretic Peptide 146 PG/ML Thyroid Stimulating Hormone 0.432 uIU/ML 3rd Gen Ethyl Alcohol Level 485 MG/DL White Blood Count 8.6 TH/MM3 Red Blood Count 4.79 MIL/MM3 Hemoglobin 16.1 GM/DL Hematocrit 46.2 % Mean Corpuscular Volume 96.3 FL Mean Corpuscular Hemoglobin 33.6 PG Mean Corpuscular Hemoglobin 34.9 % Concent Red Cell Distribution Width 13.6 % Platelet Count 95 TH/MM3 Mean Platelet Volume 7.6 FL Neutrophils (%) (Auto) 71.2 % Lymphocytes (%) (Auto) 22.1 % Monocytes (%) (Auto) 5.1 % Eosinophils (%) (Auto) 0.1 % Basophils (%) (Auto) 1.5 % Neutrophils # (Auto) 6.1 TH/MM3 Lymphocytes # (Auto) 1.9 TH/MM3 Monocytes # (Auto) 0.4 TH/MM3 Eosinophils # (Auto) 0.0 TH/MM3 Basophils # (Auto) 0.1 TH/MM3 CBC Comment AUTO DIFF Differential Comment AUTO DIFF CONFIRMED Platelet Estimate LOW Platelet Morphology Comment NORMAL Red Cell Morphology Comment NORMAL Sodium Level 144 MEQ/L Potassium Level 3.7 MEQ/L Chloride Level 108 MEQ/L Carbon Dioxide Level 23.4 MEQ/L Anion Gap 13 MEQ/L Blood Urea Nitrogen 11 MG/DL Creatinine 0.63 MG/DL Estimat Glomerular Filtration 137 ML/MIN Rate Random Glucose 45 MG/DL Calcium Level 7.0 MG/DL Protein Corrected Calcium 6.8 MG/DL Magnesium Level 1.4 MG/DL Troponin I 0.15 NG/ML Total Protein 7.6 GM/DL Triglycerides Level 124 MG/DL Cholesterol Level 150 MG/DL LDL Cholesterol 87 MG/DL HDL Cholesterol 38.5 MG/DL Cholesterol/HDL Ratio 3.89 RATIO Imaging Last 48 hours Impressions Chest X-Ray 12/02/16 1256 Signed Impressions: Service Date/Time: Friday, December 02, 2016 14:01 - CONCLUSION: 1. Cardiomegaly. No acute abnormality. Stable compared to previous. Rl Lee MD Assessment and Plan Problem List: (1) Elevated troponin Assessment and Plan: No typical pattern of IN (2) Atrial fibrillation Assessment and Plan: rate now controlled with PO meds (3) Hypokalemia Assessment and Plan: labs this AM pending (4) Hypomagnesemia Assessment and Plan: labs this AM pending (5) Noncompliance Assessment and Plan: He +has demonstrated lack of capacity to take meds reliably outside of the hospital. (6) Cardiomyopathy Assessment and Plan: alcohol related. Prognosis poor since he continues to drink heavily. Add lisinopril 2.5mg if BP > 100 (7) Chest pain Assessment and Plan: Doubt ischemia. I advise medical therapy in view of above. He cannot be stented with his alcoholism and complete noncompliance with meds. He is a poor candidate for invasive eval. (8) Alcoholism with alcohol dependence Assessment and Plan: counseled. Prognosis poor. Assessment and Plan I am out of state on vacation after this morning. My colleagues aat [facility] are available prn Problem Qualifiers (1) Atrial fibrillation: Qualified Code: I48.2 - Chronic atrial fibrillation (2) Chest pain: Qualified Code: R07.89 - Other chest pain Randall Gandara MD Dec 04, 2016 08:36
[2016-12-04] MEDS: RESP: ALBUTEROL 2.5 MG/IPRATROPIUM 0.5 MG NEB (SCH) NEB ×4 (08:56→19:16)
[2016-12-04] MEDS ORDERED: LISINOPRIL 5 MG TAB PO SCH (09:00)
[2016-12-04] MEDS: LISINOPRIL 5 MG TAB PO SCH (09:00)
[2016-12-04] MEDS: METOPROLOL TARTRATE 25 MG TAB PO SCH ×2 (09:00→21:02)
[2016-12-04] MEDS: ASPIRIN EC 325 MG TABEC PO SCH (09:02)
[2016-12-04] MEDS: CALCIUM CARBONATE 1.25 GM (CA 500 MG) TAB PO SCH ×2 (09:03→21:01)
[2016-12-04] MEDS: DOCUSATE SODIUM 50 MG/SENNA 8.6 MG TAB PO SCH ×2 (09:03→21:01)
[2016-12-04] MEDS: HEPARIN SODIUM - SQ 10,000 UNITS/ML VIAL SQ SCH ×2 (09:03→21:01)
[2016-12-04] MEDS: SODIUM CHLORIDE 0.9% FLUSH 10 ML FLUSH IV FLUSH SCH ×2 (09:03→21:02)
[2016-12-04] MEDS ORDERED: POTASSIUM CHLORIDE 20 MEQ CONTROLLED RELEASE TAB PO PRN (09:45)
[2016-12-04 09:52] LABS: BICARBONATE 26.4 MEQ/L (21.0-32.0); POTASSIUM 3.5 MEQ/L (3.5-5.1)
[2016-12-04] MEDS ORDERED: PETROLATUM 30 GM TUBE TOPICAL PRN (10:00)
--- NOTE | 2016-12-04 10:22 | HHI.FPPN ---
Subjective Remarks Pt seen and examined this morning. Pt with CIWA scores of 9,9,5,8 overnight. Received several doses of Ativan, again this morning. Pt reports feeling sleepy after the Ativan. Pt denies any hallucinations. Feels a little shaky. Denies any chest pain. Some shortness of breath. Denies any abdominal pain, leg pain. ( Kris Stanley MD, R2) Objective Vitals Vital Signs Date Time Temp Pulse Resp B/P Pulse Ox O2 Delivery O2 Flow Rate FiO2 12/04/16 08:58 92 Nasal Cannula 5.00 12/04/16 08:00 98.8 80 20 98/62 86 12/04/16 05:25 Room Air 12/04/16 04:00 98.8 77 24 112/59 92 12/04/16 00:00 Room Air 12/04/16 00:00 99.0 81 24 113/69 93 12/03/16 20:00 99.7 76 20 117/67 92 12/03/16 20:00 73 12/03/16 20:00 Room Air 12/03/16 16:41 96 Nasal Cannula 2.00 12/03/16 16:00 98.9 69 18 98/63 92 12/03/16 12:42 92 Nasal Cannula 2.00 12/03/16 12:00 98.5 75 18 107/61 90 I/O 12/03/16 12/03/16 12/03/16 12/04/16 12/04/16 12/04/16 07:00 15:00 23:00 07:00 15:00 23:00 Intake Total 42 ml 480 ml 224 ml 360 ml Output Total 0 ml Balance 42 ml 480 ml 224 ml 360 ml Intake Oral 0 ml 480 ml 220 ml 360 ml IV Total 42 ml 4 ml Output Urine Total 0 ml # Voids 2 2 2 # Bowel Movements 2 1 0 (Kris Stanley MD, R2) Result Diagram: 12/03/16 0435 12/04/16 0721 Objective Remarks CONSTITUTIONAL/GEN: normally nourished, in NAD. Sleeping in bed. LUNGS: clear A-P, respiratory effort is normal. CARDIOVASCULAR: RR without murmur or gallop. No edema. GI/ABD: soft without masses, without organomegaly. NEURO: No focal deficits. No significant tremor at this time. SKIN: tanned skin; Various abrasions over LE HEME/LYMPH: no bruising, petechia or significant adenopathy PSYCH/MENTAL STATUS: Alert and oriented x 3. (Kris Stanley MD, R2) A/P Assessment and Plan 46-year-old male with history of COPD, NV, CHF, atrial fibrillation presents with chest pain. Mildly elevated troponin with elevated alcohol level and atrial fibrillation on EKG. We'll admit for ACS rule out and management of cardiac disease. Discharge Planning Discharge once stable from alcohol withdrawal and appropriately medically managed. Issues with medication compliance upon discharge. (Kris Stanley MD , R2) Attending Attestation Patient seen and examined. Case reviewed and discussed with the resident team. Agree with plan of care as discussed with me and documented in the resident note. (Mathew Gonzalez MD) Problem List: (1) Cardiomyopathy Status: Acute Plan: Heart disease risk factors include smoking hx, FH of NV, HTN, HLD. Pt also alcoholic. Previous ECHO on 07/02/16 showed EF 30-35%. CXR showed cardiomegaly, no acute disease. Echocardiogram on 12/03/16 shows EF of 35-40% Acute NV ruled out. Atypical chest pain. Pt noncompliant with medication in the past -Cardiology consulted-appreciate recs -Don't recommend any intervention at this time due to poor compliance -Continue medical management -Supplemental O2. Daily aspirin. -Metoprolol 25 PO BID aleisha (hold for low BP and HR). -Telemetry -Daily BMP + Mg (2) Atrial fibrillation Status: Acute Plan: History of chronic atrial fibrillation. Last admission did have RVR. Rate is controlled on this admission in low 100s. Was discharged on last hospitalization with Cardizem, but has not taken since discharge. Patient also discharge with Eliquis, has not been taking EKG shows atrial fibrillation. -Monitor HR, s/p Cardizem drip -Control rate with lisinopril and beta ganesh due to concomitant cardiomyopathy -ACS rule out as above -Consult cardiology as above -Qualifies for anticoagulation due to Afib. Will consider Eliquis upon discharge , however pt at risk from complications due to chronic alcohol use and low platelets (3) Alcohol intoxication Status: Acute Plan: Alcohol level of 485 on admission. Does endorse drinking 6-8 beers/day 4 days a week. -CIWA protocol to monitor for withdrawal -Rally pack -Continue to monitor (4) Hypomagnesemia Status: Acute Plan: Magnesium level 1.2 on admission. History of hypomagnesia. Continues to remain low -Replacing as needed. -Daily Mg levels (5) Hypokalemia Status: Acute Plan: Potassium of 3.0 on admission. -Replacing as needed daily. -Daily BMP (6) Thrombocytopenia Status: Acute Plan: Plts of 93 on admission. No signs of bleeding, Hgb stable -Continue to monitor (7) FEN/PPX Status: Acute Plan: Fluids: None, tolerating PO Electrolytes: see above, continue to monitor Nutrition: Heart healthy diet DVT ppx: Heparin q12H (Kris Stanley MD, R2) Problem Qualifiers (1) Cardiomyopathy: Qualified Code: I42.6 - Alcoholic cardiomyopathy (2) Atrial fibrillation: Qualified Code: I48.2 - Chronic atrial fibrillation (3) Alcohol intoxication: Qualified Code: F10.920 - Alcoholic intoxication without complication Kris Stanley MD, R2 Dec 04, 2016 10:22 Mathew Gonzalez MD Dec 04, 2016 11:31
[2016-12-04] MEDS: THIAMINE HCL 100 MG TAB PO SCH (11:15)
[2016-12-04] MEDS: FOLIC ACID 1 MG TAB PO SCH (11:20)
[2016-12-04] MEDS: MULTIVITAMINS/MINERALS THERAPEUTIC TAB PO SCH (11:20)
[2016-12-04] MEDS ORDERED: SODIUM PHOSPHATE INJ 15 MMOL in SODIUM CHLORIDE 0.9% INJ 150 ML IV ONE (11:30)
[2016-12-04] MEDS: NEOMYCIN/POLYMYXIN/BACITRACIN OINT 15 GM TUBE TOPICAL SCH (11:30)
--- NOTE | 2016-12-04 13:06 | RADRPT ---
EXAM DATE/TIME: 12/04/2016 12:36 [facility] COMPARISON: CHEST SINGLE AP, December 02, 2016, 14:01. INDICATIONS : Shortness of breath and chest pain. MEDICAL HISTORY : Hypertension. Myocardial infarction. Chronic obstructive pulmonary disease. Seizures. Cardiovasc ular disease. SURGICAL HISTORY : None. ENCOUNTER: Initial ACUITY: 2 days PAIN SCORE: 4/10 LOCATION: Left chest FINDINGS: A single AP portable semierect view of the chest was obtained and demonstrates mild cardiomegaly. The re is minimal hazy opacity in the perihilar regions and lung bases with no focal consolidation or eff usion. Bony thorax is intact. CONCLUSION: The heart size is mildly prominent with mild hazy opacity in the perihilar regions an d lung bases which could represent early infiltrate. Marvin Washington MD on December 04, 2016 at 13:04 Board Certified Radiologist. This report was verified electronically.
[2016-12-04] MEDS: ATORVASTATIN 40 MG TAB PO SCH (21:02)
[2016-12-05] VITALS (8 sets, daily range): BP systolic 105–133; BP diastolic 72–90; PULSE 84–103; RESP 18–20; TEMP 97.9–99; O2SAT 95–98
[2016-12-05] MEDS: LORazepam 1 MG TAB PO PRN ×5 (00:50→20:32)
[2016-12-05] MEDS: RESP: ALBUTEROL 2.5 MG/IPRATROPIUM 0.5 MG NEB (SCH) NEB ×4 (08:00→20:31)
--- NOTE | 2016-12-05 09:08 | HHI.FPPN ---
Subjective Remarks Patient seen and examined this morning. Pt continues to be in alcohol withdrawal , scoring several 8s overnight on the CIWA protocol. He receives Ativan, with his last dose this morning. Pt states he has occasional chest pain and endorses being sleepy this morning. He refused the breathing treatments this morning, but states is breathing is ok and is not having shortness of breath, he was on room air overnight. Denies any abdominal pain, leg pain. (Kris Stanley MD, R2) Objective Vitals Vital Signs Date Time Temp Pulse Resp B/P Pulse Ox O2 Delivery O2 Flow Rate FiO2 12/05/16 08:00 98.9 97 18 117/75 98 12/05/16 04:34 Room Air 12/05/16 04:00 97.9 99 20 133/87 96 12/05/16 00:00 Room Air 12/05/16 00:00 98.3 103 20 130/79 95 12/04/16 20:30 100 12/04/16 20:00 Room Air 12/04/16 20:00 98.4 107 18 120/77 93 12/04/16 16:00 99.8 104 18 143/96 98 12/04/16 15:12 92 Nasal Cannula 5.00 12/04/16 12:00 97.9 99 20 138/95 92 12/04/16 09:09 76 12/04/16 09:09 Nasal Cannula 5.00 I/O 12/04/16 12/04/16 12/04/16 12/05/16 12/05/16 12/05/16 07:00 15:00 23:00 07:00 15:00 23:00 Intake Total 360 ml 480 ml 210 ml Output Total 700 ml Balance 360 ml 480 ml 210 ml -700 ml Intake Oral 360 ml 480 ml IV Total 210 ml Output Urine Total 700 ml # Voids 2 2 # Bowel Movements 0 2 2 (Kris Stanley MD, R2) Result Diagram: 12/03/16 0435 12/04/16 0721 Objective Remarks CONSTITUTIONAL/GEN: normally nourished, in NAD. Sleeping in bed. LUNGS: Decreased breath sounds. CTAB CARDIOVASCULAR: RR without murmur or gallop. No edema. GI/ABD: soft without masses, without organomegaly. NEURO: No focal deficits. No significant tremor at this time. SKIN: tanned skin; Various abrasions over LE HEME/LYMPH: no bruising, petechia or significant adenopathy PSYCH/MENTAL STATUS: Alert and oriented x 3. (Kris Stanley MD, R2) A/P Assessment and Plan 46-year-old male with history of COPD, PA, CHF, atrial fibrillation presents with chest pain. Mildly elevated troponin with elevated alcohol level and atrial fibrillation on EKG. We'll admit for ACS rule out and management of cardiac disease. Discharge Planning Discharge once stable from alcohol withdrawal and appropriately medically managed. Issues with medication compliance upon discharge. (Kris Stanley MD, R2) Attending Attestation Patient seen and examined. Case reviewed and discussed with the resident team. Agree with plan of care as discussed with me and documented in the resident note. (Mathew Gonzalez MD) Problem List: (1) Cardiomyopathy Status: Acute Plan: Heart disease risk factors include smoking hx, FH of PA, HTN, HLD. Pt also alcoholic. Previous ECHO on 07/02/16 showed EF 30-35%. CXR showed cardiomegaly, no acute disease. Echocardiogram on 12/03/16 shows EF of 35-40% Acute PA ruled out. Atypical chest pain. Pt noncompliant with medication in the past -Cardiology consulted-appreciate recs -Don't recommend any intervention at this time due to poor compliance -Continue medical management -Supplemental O2. Daily aspirin. -Metoprolol 25 PO BID aleisha (hold for low BP and HR). -Lisinopril 2.5mg daily (hold for low BP and HR) -Telemetry -Daily BMP + Mg (2) Atrial fibrillation Status: Acute Plan: History of chronic atrial fibrillation. Last admission did have RVR. Rate is controlled on this admission in low 100s. Was discharged on last hospitalization with Cardizem, but has not taken since discharge. Patient also discharge with Eliquis, has not been taking EKG shows atrial fibrillation. -Monitor HR, s/p Cardizem drip -Control rate with lisinopril and beta ganesh due to concomitant cardiomyopathy -ACS rule out as above -Consult cardiology as above -Qualifies for anticoagulation due to Afib. Will consider Eliquis upon discharge , however pt at risk from complications due to chronic alcohol use and low platelets (3) COPD exacerbation Status: Acute Plan: Desaturations, initially requiring oxygen. History of smoking. CXR (12/04): mild hazy opacity in perihilar regions and lung bases which could represent early infiltrate -Start Ceftin 500mg BID -Continue Duonebs -Albuterol PRN -IS (4) Alcohol intoxication Status: Acute Plan: Alcohol level of 485 on admission. Does endorse drinking 6-8 beers/day 4 days a week. -[facility] protocol to monitor for withdrawal -Rally pack -Continue to monitor (5) Hypomagnesemia Status: Acute Plan: Magnesium level 1.2 on admission. History of hypomagnesia. Continues to remain low -Replacing as needed. -Daily Mg levels (6) Hypokalemia Status: Acute Plan: Potassium of 3.0 on admission. -Replacing as needed daily. -Daily BMP (7) Thrombocytopenia Status: Acute Plan: Plts of 93 on admission. No signs of bleeding, Hgb stable -Continue to monitor (8) FEN/PPX Status: Acute Plan: Fluids: None, tolerating PO Electrolytes: see above, continue to monitor Nutrition: Heart healthy diet DVT ppx: Heparin q12H (Kris Stanley MD, R2) Problem Qualifiers (1) Cardiomyopathy: (2) Atrial fibrillation: (3) Alcohol intoxication: Kris Stanley MD, R2 Dec 05, 2016 09:08 Mathew Gonzalez MD Dec 08, 2016 09:03
[2016-12-05] MEDS: METOPROLOL TARTRATE 25 MG TAB PO SCH ×2 (10:27→20:34)
[2016-12-05] MEDS: ASPIRIN EC 325 MG TABEC PO SCH (10:27)
[2016-12-05] MEDS: DOCUSATE SODIUM 50 MG/SENNA 8.6 MG TAB PO SCH ×2 (10:27→20:26)
[2016-12-05] MEDS: LISINOPRIL 5 MG TAB PO SCH (10:28)
[2016-12-05] MEDS: HEPARIN SODIUM - SQ 10,000 UNITS/ML VIAL SQ SCH ×2 (10:28→20:28)
[2016-12-05] MEDS: CALCIUM CARBONATE 1.25 GM (CA 500 MG) TAB PO SCH ×2 (10:28→20:26)
[2016-12-05] MEDS: MULTIVITAMINS/MINERALS THERAPEUTIC TAB PO SCH (10:28)
[2016-12-05] MEDS: FOLIC ACID 1 MG TAB PO SCH (10:28)
[2016-12-05] MEDS: THIAMINE HCL 100 MG TAB PO SCH (10:28)
[2016-12-05] MEDS: SODIUM CHLORIDE 0.9% FLUSH 10 ML FLUSH IV FLUSH SCH ×2 (10:28→20:27)
[2016-12-05] MEDS: NEOMYCIN/POLYMYXIN/BACITRACIN OINT 15 GM TUBE TOPICAL SCH (10:29)
[2016-12-05 11:04] LABS: HEMATOCRIT 44.8 % (39.0-51.0); MEAN CELL VOLUME 95.4 FL (80.0-100.0); MEAN CORPUSCULAR HEMOGLOBIN 33.7 PG (27.0-34.0); MEAN CORPUSCULAR HGB CONC 35.3 % (32.0-36.0); PLATELET COUNT 57 TH/MM3 (150-450); RED BLOOD COUNT 4.69 MIL/MM3 (4.50-5.90); RED CELL DISTRIBUTION WIDTH 13.3 % (11.6-17.2); WHITE BLOOD COUNT 4.4 TH/MM3 (4.0-11.0)
[2016-12-05 11:06] LABS: REVIEW FLAG FINAL
[2016-12-05] MEDS: CEFUROXIME AXETIL 500 MG TAB PO SCH ×2 (11:22→20:26)
[2016-12-05 11:45] LABS: BICARBONATE 25.3 MEQ/L (21.0-32.0); MAGNESIUM 0.8 MG/DL (1.5-2.5); POTASSIUM 3.3 MEQ/L (3.5-5.1)
[2016-12-05 12:13] LABS: CALCIUM-PROTEIN CORRECTED 7.2 MG/DL (8.5-10.1)
[2016-12-05] MEDS: REMOVE OLD PATCH T-DERMAL SCH (19:00)
[2016-12-05] MEDS ORDERED: SODIUM PHOSPHATE INJ 15 MMOL in SODIUM CHLORIDE 0.9% INJ 150 ML IV ONE (19:38)
[2016-12-05] MEDS: ATORVASTATIN 40 MG TAB PO SCH (20:26)
[2016-12-05] MEDS: NICOTINE 14 MG/24 HR PATCH T-DERMAL SCH (20:27)
[2016-12-06] VITALS (8 sets, daily range): BP systolic 111–134; BP diastolic 64–89; PULSE 73–98; RESP 16–20; TEMP 97.2–99.2; O2SAT 93–100
[2016-12-06 05:38] LABS: HEMATOCRIT 41.7 % (39.0-51.0); MEAN CELL VOLUME 96.9 FL (80.0-100.0); MEAN CORPUSCULAR HEMOGLOBIN 33.4 PG (27.0-34.0); MEAN CORPUSCULAR HGB CONC 34.5 % (32.0-36.0); PLATELET COUNT 52 TH/MM3 (150-450); RED CELL DISTRIBUTION WIDTH 13.6 % (11.6-17.2); WHITE BLOOD COUNT 4.9 TH/MM3 (4.0-11.0)
[2016-12-06 05:45] LABS: REVIEW FLAG FINAL
[2016-12-06 06:25] LABS: BICARBONATE 23.8 MEQ/L (21.0-32.0); POTASSIUM 3.4 MEQ/L (3.5-5.1)
[2016-12-06] MEDS ORDERED: POTASSIUM CHLORIDE 10 MEQ CAP PO ONE (07:45)
[2016-12-06] MEDS: RESP: ALBUTEROL 2.5 MG/IPRATROPIUM 0.5 MG NEB (SCH) NEB ×3 (08:30→16:47)
[2016-12-06] MEDS: ASPIRIN EC 325 MG TABEC PO SCH (08:44)
[2016-12-06] MEDS: CEFUROXIME AXETIL 500 MG TAB PO SCH ×2 (08:44→20:00)
[2016-12-06] MEDS: DOCUSATE SODIUM 50 MG/SENNA 8.6 MG TAB PO SCH ×2 (08:44→20:00)
[2016-12-06] MEDS: CALCIUM CARBONATE 1.25 GM (CA 500 MG) TAB PO SCH ×2 (08:44→20:00)
[2016-12-06] MEDS: FOLIC ACID 1 MG TAB PO SCH (08:47)
[2016-12-06] MEDS: HEPARIN SODIUM - SQ 10,000 UNITS/ML VIAL SQ SCH ×2 (08:47→20:01)
[2016-12-06] MEDS: LISINOPRIL 5 MG TAB PO SCH (08:47)
[2016-12-06] MEDS: REMOVE OLD PATCH T-DERMAL SCH (08:48)
[2016-12-06] MEDS: NICOTINE 14 MG/24 HR PATCH T-DERMAL SCH (08:48)
[2016-12-06] MEDS: SODIUM CHLORIDE 0.9% FLUSH 10 ML FLUSH IV FLUSH SCH ×2 (08:48→19:59)
[2016-12-06] MEDS: MULTIVITAMINS/MINERALS THERAPEUTIC TAB PO SCH (08:48)
[2016-12-06] MEDS: METOPROLOL TARTRATE 25 MG TAB PO SCH ×2 (08:48→20:00)
[2016-12-06] MEDS: NEOMYCIN/POLYMYXIN/BACITRACIN OINT 15 GM TUBE TOPICAL SCH (08:48)
[2016-12-06] MEDS: MAGNESIUM SULFATE 1 GM PREMIX 100 ML IV PRN ×2 (08:49→12:50)
[2016-12-06] MEDS: THIAMINE HCL 100 MG TAB PO SCH (08:49)
[2016-12-06] MEDS: LORazepam 1 MG TAB PO PRN ×4 (08:50→22:20)
--- NOTE | 2016-12-06 13:09 | HHI.FPPN ---
Subjective Remarks Patient seen and examined this morning. Patient denies any complaints/concerns this morning. States he feels like his withdrawal is improving. Still has occasional chest pains, but intermittently. States his breathing is improved, especially with breathing treatments. Occasionally agitated. No fever/chills, leg pain. (Kris Stanley MD, R2) Objective Vitals Vital Signs Date Time Temp Pulse Resp B/P (MAP) Pulse Ox O2 Delivery O2 Flow Rate FiO2 12/06/16 07:12 Room Air 12/06/16 04:00 98.7 88 20 122/76 (91) 95 12/06/16 04:00 Room Air 12/06/16 00:00 99.2 92 20 115/72 (86) 95 12/05/16 20:31 95 12/05/16 20:00 97 12/05/16 20:00 Room Air 12/05/16 20:00 98.6 92 20 108/74 (85) 98 12/05/16 20:00 Room Air 12/05/16 16:00 99.0 90 18 105/72 (83) 98 12/05/16 16:00 Room Air I/O 12/05/16 12/05/16 12/05/16 12/06/16 12/06/16 12/06/16 07:00 15:00 23:00 07:00 15:00 23:00 Intake Total 480 ml 480 ml 120 ml Output Total 700 ml 150 ml Balance -700 ml 480 ml 330 ml 120 ml Intake Oral 480 ml 480 ml IV Total 120 ml Output Urine Total 700 ml 150 ml # Voids 2 1 # Bowel Movements 2 1 (Kris Stanley MD, R2) Result Diagram: 12/06/1642412/06/165 Objective Remarks CONSTITUTIONAL/GEN: normally nourished, in NAD. Lying in bed. LUNGS: Decreased breath sounds. CTAB CARDIOVASCULAR: RR without murmur or gallop. No edema. GI/ABD: soft without masses, without organomegaly. NEURO: No focal deficits. No significant tremor at this time. SKIN: tanned skin; Various abrasions over LE HEME/LYMPH: no bruising, petechia or significant adenopathy PSYCH/MENTAL STATUS: Alert and oriented x 3. (Kris Stanley MD, R2) A/P Assessment and Plan 46-year-old male with history of COPD, [place], CHF, atrial fibrillation presents with chest pain. Mildly elevated troponin with elevated alcohol level and atrial fibrillation on EKG. We'll admit for ACS rule out and management of cardiac disease. Discharge Planning Discharge once stable from alcohol withdrawal and appropriately medically managed. Issues with medication compliance upon discharge. (Kris Stanley MD, R2) Attending Attestation Patient seen and examined. Case reviewed and discussed with the resident team. Agree with plan of care as discussed with me and documented in the resident note. (Mathew Gonzalez MD) Problem List: (1) Cardiomyopathy ICD Codes: I42.9 - Cardiomyopathy, unspecified Status: Acute Plan: Heart disease risk factors include smoking hx, FH of [place], HTN, HLD. Pt also alcoholic. Previous ECHO on 07/02/16 showed EF 30-35%. CXR showed cardiomegaly, no acute disease. Echocardiogram on 12/03/16 shows EF of 35-40% Acute [place] ruled out. Atypical chest pain. Pt noncompliant with medication in the past -Cardiology consulted-appreciate recs -Don't recommend any intervention at this time due to poor compliance -Continue medical management -Supplemental O2. Daily aspirin. -Metoprolol 25 PO BID aleisha (hold for low BP and HR). -Lisinopril 2.5mg daily (hold for low BP and HR) -Telemetry -Daily BMP + Mg (2) Atrial fibrillation ICD Codes: I48.91 - Unspecified atrial fibrillation Status: Acute Plan: History of chronic atrial fibrillation. Last admission did have RVR. Rate is controlled on this admission in low 100s. Was discharged on last hospitalization with Cardizem, but has not taken since discharge. Patient also discharge with Eliquis, has not been taking EKG shows atrial fibrillation. -Monitor HR, s/p Cardizem drip -Control rate with lisinopril and beta ganesh due to concomitant cardiomyopathy -ACS rule out as above -Consult cardiology as above -Qualifies for anticoagulation due to Afib. Will consider Eliquis upon discharge , however pt at risk from complications due to chronic alcohol use and low platelets (3) COPD exacerbation ICD Codes: J44.1 - Chronic obstructive pulmonary disease with (acute) exacerbation Status: Acute Plan: Desaturations, initially requiring oxygen. History of smoking. CXR (12/04): mild hazy opacity in perihilar regions and lung bases which could represent early infiltrate -Start Ceftin 500mg BID -Continue Duonebs -Albuterol PRN -IS (4) Alcohol intoxication ICD Codes: F10.129 - Alcohol abuse with intoxication, unspecified Status: Acute Plan: Alcohol level of 485 on admission. Does endorse drinking 6-8 beers/day 4 days a week. -[facility] protocol to monitor for withdrawal -Rally pack -Continue to monitor (5) Hypomagnesemia ICD Codes: E83.42 - Hypomagnesemia Status: Acute Plan: Magnesium level 1.2 on admission. History of hypomagnesia. Continues to remain low -Replacing as needed. -Daily Mg levels (6) Hypokalemia ICD Codes: E87.6 - Hypokalemia Status: Acute Plan: Potassium of 3.0 on admission. -Replacing as needed daily. -Daily BMP (7) Thrombocytopenia ICD Codes: D69.6 - Thrombocytopenia, unspecified Status: Acute Plan: Plts of 93 on admission. No signs of bleeding, Hgb stable. Suspect is alcohol related -Continue to monitor Permanent Comment: Last Edited By: Kris Stanley on Dec 06, 2016 14:27 (8) FEN/PPX Status: Acute Plan: Fluids: None, tolerating PO Electrolytes: see above, continue to monitor Nutrition: Heart healthy diet DVT ppx: Heparin q12H (Kris Stanley MD, R2) Problem Qualifiers (1) Cardiomyopathy: (2) Atrial fibrillation: (3) Alcohol intoxication: Kris Stanley MD, R2 Dec 06, 2016 13:09 Mathew Gonzalez MD Dec 08, 2016 08:54
[2016-12-06] MEDS: ACETAMINOPHEN 325 MG TAB PO PRN (17:56)
[2016-12-06] MEDS: ATORVASTATIN 40 MG TAB PO SCH (20:00)
[2016-12-07] VITALS: BP 114/75; PULSE 86; RESP 16; TEMP 98.3; O2SAT 95
[2016-12-07 04:00] VITALS: BP 140/69; PULSE 93; RESP 19; TEMP 97.3; O2SAT 100
[2016-12-07 08:00] VITALS: BP 113/79; PULSE 85; RESP 20; TEMP 98.7; O2SAT 95
[2016-12-07] MEDS: METOPROLOL TARTRATE 25 MG TAB PO SCH ×2 (08:35→20:53)
[2016-12-07] MEDS: CEFUROXIME AXETIL 500 MG TAB PO SCH ×2 (08:35→20:53)
[2016-12-07] MEDS: CALCIUM CARBONATE 1.25 GM (CA 500 MG) TAB PO SCH ×2 (08:35→20:53)
[2016-12-07] MEDS: DOCUSATE SODIUM 50 MG/SENNA 8.6 MG TAB PO SCH ×2 (08:35→20:54)
[2016-12-07] MEDS: MULTIVITAMINS/MINERALS THERAPEUTIC TAB PO SCH (08:35)
[2016-12-07] MEDS: ASPIRIN EC 325 MG TABEC PO SCH (08:35)
[2016-12-07] MEDS: FOLIC ACID 1 MG TAB PO SCH (08:35)
[2016-12-07] MEDS: LISINOPRIL 5 MG TAB PO SCH (08:35)
[2016-12-07] MEDS: HEPARIN SODIUM - SQ 10,000 UNITS/ML VIAL SQ SCH ×2 (08:36→20:54)
[2016-12-07] MEDS: NEOMYCIN/POLYMYXIN/BACITRACIN OINT 15 GM TUBE TOPICAL SCH (08:36)
[2016-12-07] MEDS: NICOTINE 14 MG/24 HR PATCH T-DERMAL SCH (08:36)
[2016-12-07] MEDS: REMOVE OLD PATCH T-DERMAL SCH (08:36)
[2016-12-07] MEDS: THIAMINE HCL 100 MG TAB PO SCH (08:36)
[2016-12-07] MEDS: ACETAMINOPHEN 325 MG TAB PO PRN ×2 (08:37→16:37)
[2016-12-07] MEDS: SODIUM CHLORIDE 0.9% FLUSH 10 ML FLUSH IV FLUSH SCH ×2 (08:37→20:54)
[2016-12-07 08:58] LABS: HEMATOCRIT 43.9 % (39.0-51.0); MEAN CELL VOLUME 96.9 FL (80.0-100.0); MEAN CORPUSCULAR HGB CONC 34.1 % (32.0-36.0); PLATELET COUNT 70 TH/MM3 (150-450); RED BLOOD COUNT 4.53 MIL/MM3 (4.50-5.90); RED CELL DISTRIBUTION WIDTH 13.4 % (11.6-17.2); WHITE BLOOD COUNT 4.9 TH/MM3 (4.0-11.0)
[2016-12-07 09:02] LABS: BICARBONATE 25.2 MEQ/L (21.0-32.0); MAGNESIUM 1.3 MG/DL (1.5-2.5); POTASSIUM 4.1 MEQ/L (3.5-5.1)
[2016-12-07 09:13] LABS: REVIEW FLAG FINAL
[2016-12-07 12:00] VITALS: BP 112/72; PULSE 76; RESP 20; TEMP 98.3; O2SAT 98
--- NOTE | 2016-12-07 14:31 | HHI.FPPN ---
Subjective Remarks Patient lying in bed, in no acute distress. Does report hallucinations in the form of thinking someone is in his room intermittently when they are not. He sometimes carries on a conversation with imaginary people in the room. He is slightly tremulous and pulse is upper limits of normal. No current diaphoresis. CIWA scores low this morning but were elevated last night. No difficulties with breathing. Continues to have the same chest pain as before. Not currently agitated. Reports no fevers or chills. No calf tenderness. (Marvin Silverio MD R3) Objective Vitals Vital Signs Date Time Temp Pulse Resp B/P (MAP) Pulse Ox O2 Delivery O2 Flow Rate FiO2 12/07/16 08:35 Room Air 12/07/16 08:00 98.7 85 20 113/79 (90) 95 12/07/16 04:00 97.3 93 19 140/69 (92) 100 12/07/16 04:00 Room Air 12/07/16 00:00 98.3 86 16 114/75 (88) 95 12/07/16 00:00 Room Air 12/06/16 20:00 97.8 91 18 134/89 (104) 100 12/06/16 20:00 Room Air 12/06/16 20:00 98 12/06/16 16:00 97.2 95 16 111/64 (80) 97 I/O 12/06/16 12/06/16 12/06/16 12/07/16 12/07/16 12/07/16 06:59 14:59 22:59 06:59 14:59 22:59 Intake Total 120 ml 480 ml 640 ml Output Total 500 ml 950 ml Balance 120 ml -20 ml -310 ml Intake Oral 480 ml 640 ml IV Total 120 ml Output Urine Total 500 ml 950 ml # Bowel Movements 1 2 (Marvin Silverio MD R3) Result Diagram: 12/07/16 0812/07/16 08 Objective Remarks CONSTITUTIONAL/GEN: Lying in bed, no acute distress LUNGS: CTAB, no respiratory distress CARDIOVASCULAR: RR without murmur or gallop. No edema. GI/ABD: soft without masses, without organomegaly. NEURO: No focal deficits. Mild tremor present with arms extended SKIN: tanned skin; Various abrasions over LE HEME/LYMPH: no bruising, petechia or significant adenopathy PSYCH/MENTAL STATUS: Alert and oriented x 3. Not actively responding to internal stimuli but does report hallucinations overnight. (Marvin Silverio MD R3) A/P Assessment and Plan 46-year-old male with history of COPD, [place], CHF, atrial fibrillation presented with chest pain. Mildly elevated troponin with elevated alcohol level and atrial fibrillation on EKG. Admitted for ACS rule out and management of cardiac disease. Discharge Planning Discharge once stable from alcohol withdrawal and appropriately medically managed. Would benefit from homeless skilled nursing and alcohol abuse program at discharge, case management is consulted to help assist. (Marvin Silverio MD R3) Attending Attestation Patient seen and examined. Case reviewed and discussed with the resident team. Agree with plan of care as discussed with me and documented in the resident note. (Mathew Gonzalez MD) Problem List: (1) Alcohol intoxication ICD Codes: F10.129 - Alcohol abuse with intoxication, unspecified Status: Acute Plan: Alcohol level of 485 on admission. Drinking 6-8 beers/day 4 days a week. -CIWA protocol to monitor for withdrawal. Scores low this morning, were higher overnight. Having hallucinations and some agitation overnight, mild tremors this morning. -MV, thiamine, folic acid - Ativan PRN driven by CIWA scores. -Continue to monitor closely - Alcohol rehab program at discharge - Would benefit from homeless skilled nursing (2) Cardiomyopathy ICD Codes: I42.9 - Cardiomyopathy, unspecified Status: Acute Plan: Heart disease risk factors include smoking hx, FH of [place], HTN, HLD. Pt also alcoholic. Previous ECHO on 07/02/16 showed EF 30-35%. CXR showed cardiomegaly, no acute disease. Echocardiogram on 12/03/16 shows EF of 35-40% Acute [place] ruled out. Atypical chest pain. Pt noncompliant with medication in the past -Cardiology consulted-appreciate recs -Don't recommend any intervention at this time due to poor compliance -Continue medical management -Supplemental O2. Daily aspirin. -Metoprolol 25 PO BID aleisha -Lisinopril 2.5mg daily -Telemetry -Daily BMP + Mg (3) Atrial fibrillation ICD Codes: I48.91 - Unspecified atrial fibrillation Status: Acute Plan: History of chronic atrial fibrillation. Last admission did have RVR. Rate is controlled on this admission in low 100s. Was discharged on last hospitalization with Cardizem, but has not taken since discharge. Patient also discharge with Eliquis, has not been taking EKG shows atrial fibrillation. -Monitor with telemetry -Control rate with lisinopril and beta ganesh due to concomitant cardiomyopathy -ACS rule out as above -Consult cardiology as above -Qualifies for anticoagulation due to Afib. Will consider Eliquis upon discharge , however pt at risk from complications due to chronic alcohol use and low platelets (4) COPD exacerbation ICD Codes: J44.1 - Chronic obstructive pulmonary disease with (acute) exacerbation Status: Acute Plan: Desaturations, initially requiring oxygen. History of smoking. CXR (12/04): mild hazy opacity in perihilar regions and lung bases which could represent early infiltrate -Ceftin 500mg BID started on 12/05 -Continue Duonebs -Albuterol PRN -IS (5) Hypomagnesemia ICD Codes: E83.42 - Hypomagnesemia Status: Acute Plan: Magnesium low but trending up -Replacing as needed. -Daily Mg levels (6) Hypokalemia ICD Codes: E87.6 - Hypokalemia Status: Acute Plan: Borderline hypokalemic -Replacing as needed daily. -Daily BMP (7) Thrombocytopenia ICD Codes: D69.6 - Thrombocytopenia, unspecified Status: Acute Plan: Plts of 93 on admission, 70 today. No signs of bleeding, Hgb stable. Suspect alcohol related -Continue to monitor - Check liver enzymes Permanent Comment: Last Edited By: Kris Stanley on Dec 06, 2016 14:27 (8) FEN/PPX Status: Acute Plan: Fluids: PO fluids Electrolytes: Hypokalemia, hypomagnesemia Nutrition: Heart healthy diet DVT ppx: Heparin q12H (Marvin Silverio MD R3) Problem Qualifiers (1) Alcohol intoxication: (2) Cardiomyopathy: (3) Atrial fibrillation: Marvin Silverio MD R3 Dec 07, 2016 14:31 Mathew Gonzalez MD Dec 08, 2016 08:56
[2016-12-07 16:00] VITALS: BP 108/68; PULSE 78; RESP 20; TEMP 98.7; O2SAT 97
[2016-12-07 20:00] VITALS: BP 114/75; PULSE 63; PULSE 88; PULSE 92; RESP 20; TEMP 97.7; O2SAT 96
[2016-12-07] MEDS: ATORVASTATIN 40 MG TAB PO SCH (20:53)
[2016-12-07] MEDS: LORazepam 1 MG TAB PO PRN (20:58)
[2016-12-08] VITALS (8 sets, daily range): BP systolic 109–134; BP diastolic 71–82; PULSE 65–111; RESP 19–20; TEMP 97.4–98.7; O2SAT 95–97
[2016-12-08 07:07] LABS: HEMATOCRIT 46.9 % (39.0-51.0); MEAN CELL VOLUME 98.9 FL (80.0-100.0); MEAN CORPUSCULAR HEMOGLOBIN 32.9 PG (27.0-34.0); MEAN CORPUSCULAR HGB CONC 33.3 % (32.0-36.0); PLATELET COUNT 107 TH/MM3 (150-450); RED BLOOD COUNT 4.74 MIL/MM3 (4.50-5.90); RED CELL DISTRIBUTION WIDTH 14.1 % (11.6-17.2); REVIEW FLAG FINAL; WHITE BLOOD COUNT 6.8 TH/MM3 (4.0-11.0)
[2016-12-08 07:33] LABS: ALKALINE PHOSPHATASE 249 U/L (45-117); ALT (GPT) 53 U/L (12-78); ANION GAP 6 MEQ/L (5-15); AST (GOT) 101 U/L (15-37); BICARBONATE 29.7 MEQ/L (21.0-32.0); BLOOD UREA NITROGEN 15 MG/DL (7-18); CHLORIDE 101 MEQ/L (98-107); GLOMERULAR FILTRATION RATE 90 ML/MIN (>89); MAGNESIUM 1.3 MG/DL (1.5-2.5); SODIUM (NA) 137 MEQ/L (136-145); TOTAL BILIRUBIN ADULT 1.2 MG/DL (0.2-1.0)
[2016-12-08 07:35] LABS: POTASSIUM 5.5 MEQ/L (3.5-5.1)
[2016-12-08] MEDS: CEFUROXIME AXETIL 500 MG TAB PO SCH ×2 (09:00→22:04)
[2016-12-08] MEDS: CALCIUM CARBONATE 1.25 GM (CA 500 MG) TAB PO SCH ×2 (09:00→22:04)
[2016-12-08] MEDS: FOLIC ACID 1 MG TAB PO SCH (09:00)
[2016-12-08] MEDS: THIAMINE HCL 100 MG TAB PO SCH (09:00)
[2016-12-08] MEDS: HEPARIN SODIUM - SQ 10,000 UNITS/ML VIAL SQ SCH ×2 (09:00→22:04)
[2016-12-08] MEDS: NEOMYCIN/POLYMYXIN/BACITRACIN OINT 15 GM TUBE TOPICAL SCH (09:00)
[2016-12-08] MEDS: REMOVE OLD PATCH T-DERMAL SCH (09:00)
[2016-12-08] MEDS: METOPROLOL TARTRATE 25 MG TAB PO SCH ×2 (09:00→22:04)
[2016-12-08] MEDS: ASPIRIN EC 325 MG TABEC PO SCH (09:01)
[2016-12-08] MEDS: LISINOPRIL 5 MG TAB PO SCH (09:01)
[2016-12-08] MEDS: MULTIVITAMINS/MINERALS THERAPEUTIC TAB PO SCH (09:01)
[2016-12-08] MEDS: SODIUM CHLORIDE 0.9% FLUSH 10 ML FLUSH IV FLUSH SCH ×2 (09:01→21:00)
[2016-12-08] MEDS: DOCUSATE SODIUM 50 MG/SENNA 8.6 MG TAB PO SCH ×2 (09:02→22:03)
[2016-12-08] MEDS: NICOTINE 14 MG/24 HR PATCH T-DERMAL SCH (09:02)
[2016-12-08] MEDS: LORazepam 1 MG TAB PO PRN ×4 (09:11→22:04)
--- NOTE | 2016-12-08 11:11 | HHI.FPPN ---
Subjective Remarks Patient states that he is still hallucinating overnight. He sees people in his room and has conversations. He feels short of breath and still has chest pain in the center of his chest. No fever or chills, no nausea or vomiting, no diarrhea (Marina Rosario MD R1) Objective Vitals Vital Signs Date Time Temp Pulse Resp B/P (MAP) Pulse Ox O2 Delivery O2 Flow Rate FiO2 12/08/16 08:00 98.7 69 20 114/77 (89) 96 12/08/16 08:00 Room Air 12/08/16 00:00 Room Air 12/08/16 00:00 97.4 90 20 121/76 (91) 96 12/07/16 20:00 63 12/07/16 20:00 88 12/07/16 20:00 97.7 92 20 114/75 (88) 96 12/07/16 20:00 Room Air 12/07/16 16:00 98.7 78 20 108/68 (81) 97 12/07/16 12:00 98.3 76 20 112/72 (85) 98 I/O 12/07/16 12/07/16 12/07/16 12/08/16 12/08/16 12/08/16 07:00 15:00 23:00 07:00 15:00 23:00 Intake Total 640 ml 720 ml 240 ml Output Total 950 ml 550 ml Balance -310 ml 720 ml -310 ml Intake Oral 640 ml 720 ml 240 ml Output Urine Total 950 ml 550 ml # Voids 4 3 # Bowel Movements 2 3 (Marina Rosario MD R1) Result Diagram: 12/08/1638 12/08/16 0638 Objective Remarks CONSTITUTIONAL/GEN: Lying in bed, no acute distress LUNGS: CTAB, no respiratory distress CARDIOVASCULAR: RR without murmur or gallop. No edema. GI/ABD: soft without masses, without organomegaly. NEURO: No focal deficits. SKIN: tanned skin; Various abrasions over LE HEME/LYMPH: no bruising, petechia or significant adenopathy PSYCH/MENTAL STATUS: Alert and oriented x 3. Not actively responding to internal stimuli but does report hallucinations overnight. (Marina Rosario MD R1) A/P Assessment and Plan 46-year-old male with history of COPD, [place], CHF, atrial fibrillation presented with chest pain. Mildly elevated troponin with elevated alcohol level and atrial fibrillation on EKG. Admitted for ACS rule out and management of cardiac disease. Discharge Planning Discharge once stable from alcohol withdrawal and appropriately medically managed. Would benefit from homeless fpc and alcohol abuse program at discharge, case management is consulted to help assist. (Marina Rosario MD R1) Attending Attestation Patient seen and examined. Case reviewed and discussed with the resident team. Agree with plan of care as discussed with me and documented in the resident note. (Mathew Gonzalez MD) Problem List: (1) Alcohol intoxication ICD Codes: F10.129 - Alcohol abuse with intoxication, unspecified Status: Acute Plan: Alcohol level of 485 on admission. Drinking 6-8 beers/day 4 days a week. - CIWA protocol to monitor for withdrawal. Scores higher this morning, were lower overnight. Having hallucinations and some agitation overnight. - MV, thiamine, folic acid - Ativan PRN driven by CIWA scores. - Continue to monitor closely - Alcohol rehab program at discharge - Would benefit from homeless fpc (2) Cardiomyopathy ICD Codes: I42.9 - Cardiomyopathy, unspecified Status: Acute Plan: Heart disease risk factors include smoking hx, FH of [place], HTN, HLD. Pt also alcoholic. Previous ECHO on 07/02/16 showed EF 30-35%. CXR showed cardiomegaly, no acute disease. Echocardiogram on 12/03/16 shows EF of 35-40% Acute [place] ruled out. Atypical chest pain. Pt noncompliant with medication in the past -Cardiology consulted-appreciate recs -Don't recommend any intervention at this time due to poor compliance -Continue medical management -Supplemental O2. Daily aspirin. -Metoprolol 25 PO BID aleisha -Lisinopril 2.5mg daily -Telemetry -Daily BMP + Mg (3) Atrial fibrillation ICD Codes: I48.91 - Unspecified atrial fibrillation Status: Acute Plan: History of chronic atrial fibrillation. Last admission did have RVR. Rate is controlled on this admission in low 100s. Was discharged on last hospitalization with Cardizem, but has not taken since discharge. Patient also discharge with Eliquis, has not been taking EKG shows atrial fibrillation. -Monitor with telemetry -Control rate with lisinopril and beta ganesh due to concomitant cardiomyopathy -ACS rule out as above -Consult cardiology as above -Qualifies for anticoagulation due to Afib. Will consider Eliquis upon discharge , however pt at risk from complications due to chronic alcohol use and low platelets (4) COPD exacerbation ICD Codes: J44.1 - Chronic obstructive pulmonary disease with (acute) exacerbation Status: Acute Plan: Desaturations, initially requiring oxygen. History of smoking. CXR (12/04): mild hazy opacity in perihilar regions and lung bases which could represent early infiltrate -Ceftin 500mg BID started on 12/05 -Continue Duonebs -Albuterol PRN -IS (5) Hypomagnesemia ICD Codes: E83.42 - Hypomagnesemia Status: Acute Plan: Magnesium low but trending up -Replacing as needed. -Daily Mg levels (6) Hypokalemia ICD Codes: E87.6 - Hypokalemia Status: Acute Plan: Borderline hypokalemic -Replacing as needed daily. -Daily BMP (7) Thrombocytopenia ICD Codes: D69.6 - Thrombocytopenia, unspecified Status: Acute Plan: Plts of 93 on admission, 70 today. No signs of bleeding, Hgb stable. Suspect alcohol related -Continue to monitor - Check liver enzymes Permanent Comment: Last Edited By: Kris Stanley on Dec 06, 2016 14:27 (8) FEN/PPX Status: Acute Plan: Fluids: PO fluids Electrolytes: Hypokalemia, hypomagnesemia Nutrition: Heart healthy diet DVT ppx: Heparin q12H (Marina Rosario MD R1) Problem Qualifiers (1) Alcohol intoxication: (2) Cardiomyopathy: (3) Atrial fibrillation: Marina Rosario MD R1 Dec 08, 2016 11:11 Mathew Gonzalez MD Dec 09, 2016 12:57
[2016-12-08] MEDS: ACETAMINOPHEN 325 MG TAB PO PRN (17:36)
[2016-12-08] MEDS: ATORVASTATIN 40 MG TAB PO SCH (22:04)
[2016-12-09] VITALS (8 sets, daily range): BP systolic 93–142; BP diastolic 55–77; PULSE 73–93; RESP 18–19; TEMP 97.5–98.5; O2SAT 96–99
[2016-12-09 08:34] LABS: HEMATOCRIT 47.3 % (39.0-51.0); MEAN CELL VOLUME 98.7 FL (80.0-100.0); MEAN CORPUSCULAR HEMOGLOBIN 33.2 PG (27.0-34.0); MEAN CORPUSCULAR HGB CONC 33.7 % (32.0-36.0); PLATELET COUNT 128 TH/MM3 (150-450); RED BLOOD COUNT 4.79 MIL/MM3 (4.50-5.90); RED CELL DISTRIBUTION WIDTH 13.8 % (11.6-17.2); REVIEW FLAG FINAL; WHITE BLOOD COUNT 7.3 TH/MM3 (4.0-11.0)
[2016-12-09] MEDS: NEOMYCIN/POLYMYXIN/BACITRACIN OINT 15 GM TUBE TOPICAL SCH (09:00)
[2016-12-09] MEDS: REMOVE OLD PATCH T-DERMAL SCH (09:00)
[2016-12-09 09:05] LABS: ALKALINE PHOSPHATASE 225 U/L (45-117); ALT (GPT) 48 U/L (12-78); ANION GAP 6 MEQ/L (5-15); AST (GOT) 69 U/L (15-37); BLOOD UREA NITROGEN 15 MG/DL (7-18); CHLORIDE 100 MEQ/L (98-107); GLOMERULAR FILTRATION RATE 117 ML/MIN (>89); MAGNESIUM 1.2 MG/DL (1.5-2.5); POTASSIUM 4.4 MEQ/L (3.5-5.1); SODIUM (NA) 134 MEQ/L (136-145); TOTAL BILIRUBIN ADULT 1.1 MG/DL (0.2-1.0)
[2016-12-09] MEDS: CEFUROXIME AXETIL 500 MG TAB PO SCH ×2 (10:09→20:30)
[2016-12-09] MEDS: THIAMINE HCL 100 MG TAB PO SCH (10:10)
[2016-12-09] MEDS: ASPIRIN EC 325 MG TABEC PO SCH (10:10)
[2016-12-09] MEDS: DOCUSATE SODIUM 50 MG/SENNA 8.6 MG TAB PO SCH ×2 (10:10→20:30)
[2016-12-09] MEDS: FOLIC ACID 1 MG TAB PO SCH (10:10)
[2016-12-09] MEDS: NICOTINE 14 MG/24 HR PATCH T-DERMAL SCH (10:10)
[2016-12-09] MEDS: CALCIUM CARBONATE 1.25 GM (CA 500 MG) TAB PO SCH ×2 (10:10→20:30)
[2016-12-09] MEDS: METOPROLOL TARTRATE 25 MG TAB PO SCH ×2 (10:11→20:30)
[2016-12-09] MEDS: LISINOPRIL 5 MG TAB PO SCH (10:11)
[2016-12-09] MEDS: HEPARIN SODIUM - SQ 10,000 UNITS/ML VIAL SQ SCH ×2 (10:11→20:30)
[2016-12-09] MEDS: SODIUM CHLORIDE 0.9% FLUSH 10 ML FLUSH IV FLUSH SCH ×2 (10:12→20:29)
[2016-12-09] MEDS: MULTIVITAMINS/MINERALS THERAPEUTIC TAB PO SCH (10:12)
--- NOTE | 2016-12-09 14:01 | HHI.FPPN ---
Subjective Remarks Patient states that he is still not doing well. He is still having chest pain in the center of his chest. Still feeling short of breath. Still having active hallucinations at night. He has conversations with people who were are in the room. He is having night sweats. No fever or chills, no abdominal pain, no more diarrhea. He has a new complaint of left lower quadrant abdominal pain that started last night with no radiation. Made worse by movement and touching that area. He says that he feels a lump in this region. Patient has had history of abdominal surgeries. (Marina Rosario MD R1) Objective Vitals Vital Signs Date Time Temp Pulse Resp B/P (MAP) Pulse Ox O2 Delivery O2 Flow Rate FiO2 12/09/16 12:05 98.5 73 18 101/66 (78) 98 12/09/16 09:00 Room Air 12/09/16 08:05 98.3 74 18 98/69 (79) 98 12/09/16 04:00 97.7 80 19 93/55 (68) 96 12/09/16 04:00 Room Air 12/08/16 23:00 Room Air 12/08/16 23:00 111 12/08/16 23:00 97.4 86 19 134/82 (99) 96 12/08/16 20:00 Room Air 12/08/16 20:00 97.5 91 20 127/74 (91) 96 12/08/16 17:07 95 12/08/16 16:00 98.3 83 20 109/71 (84) 97 I/O 12/08/16 12/08/16 12/08/16 12/09/16 12/09/16 12/09/16 07:00 15:00 23:00 07:00 15:00 23:00 Intake Total 240 ml 480 ml 480 ml Output Total 550 ml 350 ml 300 ml Balance -310 ml 130 ml 180 ml Intake Oral 240 ml 480 ml 480 ml Output Urine Total 550 ml 350 ml 300 ml # Voids 3 2 2 # Bowel Movements 3 (Marina Rosario MD R1) Result Diagram: 12/09/1674012/09/1641 Objective Remarks CONSTITUTIONAL/GEN: Lying in bed, no acute distress LUNGS: CTAB, no respiratory distress CARDIOVASCULAR: RR without murmur or gallop. No edema. GI/ABD: soft, without organomegaly. Tender to palpation at left lower quadrant. 1.5 cm x 3 cm mass in this area. NEURO: No focal deficits. SKIN: tanned skin; Various abrasions over LE HEME/LYMPH: no bruising, petechia or significant adenopathy PSYCH/MENTAL STATUS: Alert and oriented x 3. Not actively responding to internal stimuli but does report hallucinations overnight. (Marina Rosario MD R1) A/P Assessment and Plan 46-year-old male with history of COPD, [place], CHF, atrial fibrillation presented with chest pain. Mildly elevated troponin with elevated alcohol level and atrial fibrillation on EKG. Admitted for ACS rule out and management of cardiac disease. Discharge Planning Discharge once stable from alcohol withdrawal and appropriately medically managed. Would benefit from homeless [facility] and alcohol abuse program at discharge, case management is consulted to help assist. (Marina Rosario MD R1) Attending Attestation Patient seen and examined. Case reviewed and discussed with the resident team. Agree with plan of care as discussed with me and documented in the resident note. (Mathew Gonzalez MD) Problem List: (1) Alcohol intoxication ICD Codes: F10.129 - Alcohol abuse with intoxication, unspecified Status: Acute Plan: Alcohol level of 485 on admission. Drinking 6-8 beers/day 4 days a week. - CIWA protocol to monitor for withdrawal. Scores higher this morning, were lower overnight. Having hallucinations and some agitation overnight. - MV, thiamine, folic acid - Ativan PRN driven by CIWA scores. - Continue to monitor closely - Alcohol rehab program at discharge - Would benefit from homeless [facility] (2) Abdominal pain ICD Codes: R10.9 - Unspecified abdominal pain Status: Acute Plan: New onset left lower quadrant abdominal pain with palpable mass. Possible hernia. Patient has had multiple abdominal surgeries in the past. -Ordered abdominal ultrasound (3) Cardiomyopathy ICD Codes: I42.9 - Cardiomyopathy, unspecified Status: Acute Plan: Heart disease risk factors include smoking hx, FH of [place], HTN, HLD. Pt also alcoholic. Previous ECHO on 07/02/16 showed EF 30-35%. CXR showed cardiomegaly, no acute disease. Echocardiogram on 12/03/16 shows EF of 35-40% Acute [place] ruled out. Atypical chest pain. Pt noncompliant with medication in the past Patient is still having chest pain. repeated EKG. No change. -Cardiology consulted-appreciate recs -Don't recommend any intervention at this time due to poor compliance -Continue medical management -Supplemental O2. Daily aspirin. -Metoprolol 25 PO BID aleisha -Lisinopril 2.5mg daily -Telemetry -Daily BMP + Mg (4) Atrial fibrillation ICD Codes: I48.91 - Unspecified atrial fibrillation Status: Acute Plan: History of chronic atrial fibrillation. Last admission did have RVR. Rate is controlled on this admission in low 100s. Was discharged on last hospitalization with Cardizem, but has not taken since discharge. Patient also discharge with Eliquis, has not been taking EKG shows atrial fibrillation. -Monitor with telemetry -Control rate with lisinopril and beta ganesh due to concomitant cardiomyopathy -ACS rule out as above -Consult cardiology as above -Qualifies for anticoagulation due to Afib. Will consider Eliquis upon discharge , however pt at risk from complications due to chronic alcohol use and low platelets (5) COPD exacerbation ICD Codes: J44.1 - Chronic obstructive pulmonary disease with (acute) exacerbation Status: Acute Plan: Desaturations, initially requiring oxygen. History of smoking. CXR (12/04): mild hazy opacity in perihilar regions and lung bases which could represent early infiltrate -Ceftin 500mg BID started on 12/05 -Continue Duonebs -Albuterol PRN -IS (6) Hypomagnesemia ICD Codes: E83.42 - Hypomagnesemia Status: Acute Plan: Magnesium low but trending up -Replacing as needed. -Daily Mg levels (7) Hypokalemia ICD Codes: E87.6 - Hypokalemia Status: Acute Plan: Borderline hypokalemic -Replacing as needed daily. -Daily BMP (8) Thrombocytopenia ICD Codes: D69.6 - Thrombocytopenia, unspecified Status: Acute Plan: Plts of 93 on admission, 70 today. No signs of bleeding, Hgb stable. Suspect alcohol related -Continue to monitor - Check liver enzymes Permanent Comment: Last Edited By: Kris Stanley on Dec 06, 2016 14:27 (9) FEN/PPX Status: Acute Plan: Fluids: PO fluids Electrolytes: Hypokalemia, hypomagnesemia Nutrition: Heart healthy diet DVT ppx: Heparin q12H (Marina Rosario MD R1) Problem Qualifiers (1) Alcohol intoxication: (2) Abdominal pain: Qualified Codes: R10.32 - Left lower quadrant pain (3) Cardiomyopathy: (4) Atrial fibrillation: Marina Rosario MD R1 Dec 09, 2016 14:01 Mathew Gonzalez MD Dec 10, 2016 08:28
--- NOTE | 2016-12-09 17:40 | RADRPT ---
EXAM DATE/TIME: 12/09/2016 16:41 [facility] COMPARISON: No previous studies available for comparison. INDICATIONS : Abnormal lump in left lower quadrant. MEDICAL HISTORY : Hypercholesterolemia. Chronic obstructive pulmonary disease. Hypertension. Seizures. Syncope. Atria l fibrillation. Myocardial infarction. Congestive heart failure. Asthma. Arthritis. MRSA. Anxie ty. Depression. Bowel obstruction/perferation. SURGICAL HISTORY : Colostomy with reversal 2004. ENCOUNTER: Initial ACUITY: 1 day PAIN SCORE: 2/10 LOCATION: Bilateral lower quadrant AREA EVALUATED: Left lower quadrant superficially, below colostomy area. FINDINGS: Ultrasound was performed of the area of palpable concern demonstrating a 2.8 x 2.3 x 1.0 cm slightly inhomogeneous mass containing a 1.2 x 0.9 by 0.5 cm in 0.8 x 1.1 x 1.4 m internal fluid component. No increased blood flow color Doppler imaging. This is noted in the subcutaneous tissues of the left lo wer quadrant. CONCLUSION: There is a slightly inhomogeneous 2.8 cm masslike area isoechoic to the surrounding subcutaneous fat. There are 2 associated very small fluid collections or cystic foci. Is there a history of recent med icinal injection? Darian Oswald MD on December 09, 2016 at 17:37 Board Certified Radiologist. This report was verified electronically.
--- NOTE | 2016-12-09 19:28 | EKG ---
Date Performed: 12/09/2016 Time Performed: 10:55:37 PTAGE: 46 years EKG: ATRIAL FIBRILLATION BORDERLINE LEFT AXIS DEVIATION ABNORMAL RHYTHM ECG PREVIOUS TRACING : 12/02/2016 22.33 Compared to prior tracing no significant change DOCTOR: Elizabeth Cardenas Interpretating Date/Time 12/09/2016 19:26:56
[2016-12-09] MEDS: LORazepam 1 MG TAB PO PRN ×2 (20:30→23:39)
[2016-12-09] MEDS: ATORVASTATIN 40 MG TAB PO SCH (20:30)
[2016-12-09] MEDS: MAGNESIUM SULFATE 1 GM PREMIX 100 ML IV PRN ×2 (20:45→21:57)
[2016-12-09] MEDS ORDERED: MAGNESIUM SULFATE 1 GM PREMIX 100 ML IV ONE (22:30)
[2016-12-10] VITALS (8 sets, daily range): BP systolic 104–123; BP diastolic 60–71; PULSE 69–89; RESP 16–18; TEMP 97.5–98.5; O2SAT 98–100
[2016-12-10 07:56] LABS: HEMATOCRIT 46.3 % (39.0-51.0); MEAN CELL VOLUME 98.7 FL (80.0-100.0); MEAN CORPUSCULAR HEMOGLOBIN 33.7 PG (27.0-34.0); MEAN CORPUSCULAR HGB CONC 34.2 % (32.0-36.0); PLATELET COUNT 131 TH/MM3 (150-450); RED BLOOD COUNT 4.68 MIL/MM3 (4.50-5.90); RED CELL DISTRIBUTION WIDTH 13.9 % (11.6-17.2); REVIEW FLAG FINAL; WHITE BLOOD COUNT 9.9 TH/MM3 (4.0-11.0)
[2016-12-10 08:38] LABS: ALT (GPT) 60 U/L (12-78)
[2016-12-10 08:39] LABS: ALKALINE PHOSPHATASE 213 U/L (45-117); TOTAL BILIRUBIN ADULT 1.2 MG/DL (0.2-1.0)
[2016-12-10 08:55] LABS: ANION GAP 6 MEQ/L (5-15); AST (GOT) 96 U/L (15-37); BICARBONATE 25.8 MEQ/L (21.0-32.0); BLOOD UREA NITROGEN 17 MG/DL (7-18); CHLORIDE 99 MEQ/L (98-107); GLOMERULAR FILTRATION RATE 107 ML/MIN (>89); MAGNESIUM 1.6 MG/DL (1.5-2.5); POTASSIUM 4.4 MEQ/L (3.5-5.1); SODIUM (NA) 131 MEQ/L (136-145)
[2016-12-10] MEDS: NEOMYCIN/POLYMYXIN/BACITRACIN OINT 15 GM TUBE TOPICAL SCH (09:00)
[2016-12-10] MEDS: REMOVE OLD PATCH T-DERMAL SCH (09:00)
[2016-12-10] MEDS: DOCUSATE SODIUM 50 MG/SENNA 8.6 MG TAB PO SCH ×2 (09:31→20:19)
[2016-12-10] MEDS: CALCIUM CARBONATE 1.25 GM (CA 500 MG) TAB PO SCH ×2 (09:32→20:19)
[2016-12-10] MEDS: THIAMINE HCL 100 MG TAB PO SCH (09:32)
[2016-12-10] MEDS: LISINOPRIL 5 MG TAB PO SCH (09:32)
[2016-12-10] MEDS: CEFUROXIME AXETIL 500 MG TAB PO SCH ×2 (09:32→20:19)
[2016-12-10] MEDS: ASPIRIN EC 325 MG TABEC PO SCH (09:33)
[2016-12-10] MEDS: HEPARIN SODIUM - SQ 10,000 UNITS/ML VIAL SQ SCH ×2 (09:33→20:20)
[2016-12-10] MEDS: METOPROLOL TARTRATE 25 MG TAB PO SCH ×2 (09:33→20:19)
[2016-12-10] MEDS: NICOTINE 14 MG/24 HR PATCH T-DERMAL SCH (09:34)
[2016-12-10] MEDS: SODIUM CHLORIDE 0.9% FLUSH 10 ML FLUSH IV FLUSH SCH ×2 (18:07→21:00)
[2016-12-10] MEDS: LORazepam 1 MG TAB PO PRN (18:27)
[2016-12-10] MEDS ORDERED: SODIUM CHLOR 0.9% 1000 ML INJ 1,000 ML IV SCH (20:00)
[2016-12-10] MEDS: ATORVASTATIN 40 MG TAB PO SCH (20:19)
[2016-12-10] MEDS: MAGNESIUM SULFATE 1 GM PREMIX 100 ML IV PRN (21:04)
--- NOTE | 2016-12-10 21:40 | HHI.FPPN ---
Subjective Remarks Patient states that he is doing okay this morning. He is still having some pain in his left lower quadrant of his abdomen. He feels like there is a mass there. He is concerned because he had multiple surgeries on his abdomen and a previous colostomy. History of short of breath and some chest pain. Last night he felt like the arms of his bed were shaking. But no other hallucinations. No fever or chills, no nausea or vomiting, no diarrhea or constipation. (Marina Rosario MD R1) Objective Vitals Vital Signs Date Time Temp Pulse Resp B/P (MAP) Pulse Ox O2 Delivery O2 Flow Rate FiO2 12/10/16 16:24 98.5 86 18 109/63 (78) 100 12/10/16 14:17 80 12/10/16 12:29 97.5 69 18 110/65 (80) 99 12/10/16 08:05 98.5 71 17 109/60 (76) 100 12/10/16 04:21 98.0 85 18 110/70 (83) 98 12/10/16 04:00 Room Air 12/10/16 00:52 98.2 89 18 104/67 (79) 98 12/10/16 00:00 Room Air I/O 12/09/16 12/09/16 12/09/16 12/10/16 12/10/16 12/10/16 07:00 15:00 23:00 07:00 15:00 23:00 Intake Total 480 ml 1020 ml 590 ml 720 ml Output Total 300 ml 500 ml 700 ml Balance 180 ml 1020 ml 90 ml 20 ml Intake Oral 480 ml 720 ml 590 ml 720 ml IV Total 300 ml Output Urine Total 300 ml 500 ml 700 ml # Voids 2 3 # Bowel Movements 1 0 (Marina Rosario MD R1) Result Diagram: 12/10/16 0659 12/10/16 0659 Imaging Last Impressions Abdomen Ultrasound 12/09/16 0000 Signed Impressions: Service Date/Time: Friday, December 09, 2016 16:41 - CONCLUSION: There is a slightly inhomogeneous 2.8 cm masslike area isoechoic to the surrounding subcutaneous fat. There are 2 associated very small fluid collections or cystic foci. Is there a history of recent medicinal injection? Darian Oswald MD Chest X-Ray 12/04/16 0000 Signed Impressions: Service Date/Time: Sunday, December 04, 2016 12:36 - CONCLUSION: The heart size is mildly prominent with mild hazy opacity in the perihilar regions and lung bases which could represent early infiltrate. Marvin Washington MD Objective Remarks CONSTITUTIONAL/GEN: Lying in bed, no acute distress LUNGS: CTAB, no respiratory distress CARDIOVASCULAR: RR without murmur or gallop. No edema. Tenderness to palpation at mid sternum GI/ABD: soft, without organomegaly. Tender to palpation at left lower quadrant. 1.5 cm x 3 cm mass in this area with ecchymosis. NEURO: No focal deficits. SKIN: tanned skin; Various abrasions over LE HEME/LYMPH: no bruising, petechia or significant adenopathy PSYCH/MENTAL STATUS: Alert and oriented x 3. Not actively responding to internal stimuli. (Marina Rosario MD R1) A/P Assessment and Plan 46-year-old male with history of COPD, [place], CHF, atrial fibrillation presented with chest pain. Mildly elevated troponin with elevated alcohol level and atrial fibrillation on EKG. Admitted for ACS rule out and management of cardiac disease. Discharge Planning Discharge once stable from alcohol withdrawal and appropriately medically managed. Would benefit from homeless [facility] and alcohol abuse program at discharge, case management is consulted to help assist. (Marina Rosario MD R1) Attending Attestation Patient seen and examined. Case reviewed and discussed Agree with plan of care as discussed with me and documented in the resident note. (Alba Knox MD) Problem List: (1) Alcohol intoxication ICD Codes: F10.129 - Alcohol abuse with intoxication, unspecified Status: Acute Plan: Alcohol level of 485 on admission. Drinking 6-8 beers/day 4 days a week. - CITN protocol to monitor for withdrawal. Having hallucinations and some agitation overnight. - We will consider psychiatry consult if hallucinations continue for another night - Ordered ammonia levels - MV, thiamine, folic acid - Ativan PRN driven by CIWA scores. - Continue to monitor closely - Alcohol rehab program at discharge - Would benefit from homeless [facility] (2) Abdominal pain ICD Codes: R10.9 - Unspecified abdominal pain Status: Acute Plan: New onset left lower quadrant abdominal pain with palpable mass. Abdominal ultrasound showed there is a slightly inhomogeneous 2.8 cm masslike area isoechoic to the surrounding subcutaneous fat. There are 2 associated very small fluid collections or cystic foci. -Patient receives his heparin injections in his abdomen. (3) Cardiomyopathy ICD Codes: I42.9 - Cardiomyopathy, unspecified Status: Acute Plan: Heart disease risk factors include smoking hx, FH of [place], HTN, HLD. Pt also alcoholic. Previous ECHO on 07/02/16 showed EF 30-35%. CXR showed cardiomegaly, no acute disease. Echocardiogram on 12/03/16 shows EF of 35-40% Acute [place] ruled out. Atypical chest pain. Pt noncompliant with medication in the past Patient is still having chest pain. repeated EKG. No change. -Cardiology consulted-appreciate recs -Don't recommend any intervention at this time due to poor compliance -Continue medical management -Supplemental O2. Daily aspirin. -Metoprolol 25 PO BID aleisha -Lisinopril 2.5mg daily -Telemetry -Daily BMP + Mg (4) Atrial fibrillation ICD Codes: I48.91 - Unspecified atrial fibrillation Status: Acute Plan: History of chronic atrial fibrillation. Last admission did have RVR. Rate is controlled on this admission in low 100s. Was discharged on last hospitalization with Cardizem, but has not taken since discharge. Patient also discharge with Eliquis, has not been taking EKG shows atrial fibrillation. -Monitor with telemetry -Control rate with lisinopril and beta ganesh due to concomitant cardiomyopathy -ACS rule out as above -Consult cardiology as above -Qualifies for anticoagulation due to Afib. Will consider Eliquis upon discharge , however pt at risk from complications due to chronic alcohol use and low platelets (5) COPD exacerbation ICD Codes: J44.1 - Chronic obstructive pulmonary disease with (acute) exacerbation Status: Acute Plan: Desaturations, initially requiring oxygen. History of smoking. CXR (12/04): mild hazy opacity in perihilar regions and lung bases which could represent early infiltrate -Ceftin 500mg BID started on 12/05 -Continue Duonebs -Albuterol PRN -IS (6) Hypomagnesemia ICD Codes: E83.42 - Hypomagnesemia Status: Acute Plan: Magnesium is now normal -Replace if become low again. -Daily Mg levels (7) Hypokalemia ICD Codes: E87.6 - Hypokalemia Status: Acute Plan: Borderline hypokalemic -Replacing as needed daily. -Daily BMP (8) Thrombocytopenia ICD Codes: D69.6 - Thrombocytopenia, unspecified Status: Acute Plan: Plts of 93 on admission, 70 today. No signs of bleeding, Hgb stable. Suspect alcohol related -Continue to monitor - Check liver enzymes Permanent Comment: Last Edited By: Kris Stanley on Dec 06, 2016 14:27 (9) FEN/PPX Status: Acute Plan: Fluids: Normal saline at 42 mL's per hour Electrolytes: Hyponatremia Nutrition: Heart healthy diet DVT ppx: Heparin q12H (Marina Rosario MD R1) Problem Qualifiers (1) Alcohol intoxication: (2) Abdominal pain: Qualified Codes: R10.32 - Left lower quadrant pain (3) Cardiomyopathy: (4) Atrial fibrillation: Marina Rosario MD R1 Dec 10, 2016 21:40 Alba Knox MD Dec 15, 2016 15:09
[2016-12-11] VITALS: BP 108/74; PULSE 77; RESP 16; TEMP 98.6; O2SAT 99
[2016-12-11] MEDS: LORazepam 1 MG TAB PO PRN ×2 (00:30→09:55)
[2016-12-11] MEDS: MAGNESIUM SULFATE 1 GM PREMIX 100 ML IV PRN (01:42)
[2016-12-11 04:00] VITALS: BP 119/71; PULSE 83; RESP 20; TEMP 98.6; O2SAT 98
[2016-12-11 07:40] LABS: BICARBONATE 25.8 MEQ/L (21.0-32.0); MAGNESIUM 1.7 MG/DL (1.5-2.5); POTASSIUM 4.2 MEQ/L (3.5-5.1)
[2016-12-11 08:00] VITALS: BP 107/68; PULSE 81; RESP 16; TEMP 97.4; O2SAT 100
[2016-12-11] MEDS: NICOTINE 14 MG/24 HR PATCH T-DERMAL SCH (09:00)
[2016-12-11] MEDS: SODIUM CHLORIDE 0.9% FLUSH 10 ML FLUSH IV FLUSH SCH (09:00)
[2016-12-11 09:15] VITALS: O2SAT 94
[2016-12-11] MEDS: CEFUROXIME AXETIL 500 MG TAB PO SCH (09:49)
[2016-12-11] MEDS: CALCIUM CARBONATE 1.25 GM (CA 500 MG) TAB PO SCH (09:50)
[2016-12-11] MEDS: ASPIRIN EC 325 MG TABEC PO SCH (09:50)
[2016-12-11] MEDS: DOCUSATE SODIUM 50 MG/SENNA 8.6 MG TAB PO SCH (09:50)
[2016-12-11] MEDS: METOPROLOL TARTRATE 25 MG TAB PO SCH (09:50)
[2016-12-11] MEDS: THIAMINE HCL 100 MG TAB PO SCH (09:50)
[2016-12-11] MEDS: LISINOPRIL 5 MG TAB PO SCH (09:50)
[2016-12-11] MEDS: HEPARIN SODIUM - SQ 10,000 UNITS/ML VIAL SQ SCH (09:52)
[2016-12-11] MEDS: REMOVE OLD PATCH T-DERMAL SCH (09:52)
[2016-12-11] MEDS: NEOMYCIN/POLYMYXIN/BACITRACIN OINT 15 GM TUBE TOPICAL SCH (09:52)
[2016-12-11] MEDS ORDERED: ATOR40TA16 PO (10:05)
[2016-12-11] MEDS ORDERED: LISI-519 PO (10:05)
[2016-12-11] MEDS ORDERED: METO25TA3 PO (10:05)
[2016-12-11] MEDS ORDERED: APIX5TAB PO (10:05)
--- NOTE | 2016-12-11 10:07 | HHI.DCPOC ---
Discharge Care Plan Diagnosis: (1) DTs (delirium tremens) (2) Alcohol abuse (3) Alcoholism with alcohol dependence (4) Thrombocytopenia (5) Hypocalcemia (6) Hypokalemia (7) Atrial fibrillation Goals to Promote Your Health * To prevent worsening of your condition and complications * To maintain your health at the optimal level Directions to Meet Your Goals Take your medications as prescribed Follow your dietary instruction Follow activity as directed Keep your appointments as scheduled Take your immunizations and boosters as scheduled If your symptoms worsen call your PCP, if no PCP go to Urgent Care Center or Emergency Room Smoking is Dangerous to Your Health. Avoid second hand smoke Call the 24-hour hour crisis hotline for domestic abuse at Kris Stanley MD, R2 Dec 11, 2016 10:07
--- NOTE | 2016-12-11 12:02 | HHI.FPPN ---
Subjective Remarks Patient states that he is doing okay this morning. He still is having some chest pain and shortness of breath. He says that he has those pains at baseline and whenever he pushes on his chest. No fever or chills, no nausea or vomiting, no diarrhea or constipation. (Marina Rosario MD R1) Objective Vitals Vital Signs Date Time Temp Pulse Resp B/P (MAP) Pulse Ox O2 Delivery O2 Flow Rate FiO2 12/11/16 09:15 94 12/11/16 08:00 97.4 81 16 107/68 (81) 100 12/11/16 04:00 98.6 83 20 119/71 (87) 98 12/11/16 00:00 98.6 77 16 108/74 (85) 99 12/10/16 20:19 89 12/10/16 20:00 98.0 79 16 123/71 (88) 98 12/10/16 20:00 Room Air 12/10/16 16:24 98.5 86 18 109/63 (78) 100 12/10/16 14:17 80 12/10/16 12:29 97.5 69 18 110/65 (80) 99 I/O 12/10/16 12/10/16 12/10/16 12/11/16 12/11/16 12/11/16 07:00 15:00 23:00 07:00 15:00 23:00 Intake Total 590 ml 820 ml 1798 ml Output Total 500 ml 700 ml Balance 90 ml 120 ml 1798 ml Intake Oral 590 ml 720 ml 1200 ml IV Total 100 ml 598 ml Output Urine Total 500 ml 700 ml # Voids 7 # Bowel Movements 0 1 (Marina Rosario MD R1) Result Diagram: 12/10/16 0659 12/11/16 0644 Objective Remarks CONSTITUTIONAL/GEN: Lying in bed, no acute distress LUNGS: CTAB, no respiratory distress CARDIOVASCULAR: RR without murmur or gallop. No edema. GI/ABD: soft, without organomegaly. Tender to palpation at left lower quadrant. 1.5 cm x 1.5 cm mass in this area with ecchymosis. NEURO: No focal deficits. SKIN: tanned skin; Various abrasions over LE HEME/LYMPH: no bruising, petechia or significant adenopathy PSYCH/MENTAL STATUS: Alert and oriented x 3. Not actively responding to internal stimuli. (Marina Rosario MD R1) A/P Assessment and Plan 46-year-old male with history of COPD, [place], CHF, atrial fibrillation presented with chest pain. Mildly elevated troponin with elevated alcohol level and atrial fibrillation on EKG. Admitted for ACS rule out and management of cardiac disease. Discharge Planning Discharge today (Marina Rosario MD R1) Attending Attestation Patient seen and examined. Case reviewed and discussed Agree with plan of care as discussed with me and documented in the resident note. (Alba Knox MD) Problem List: (1) Alcohol intoxication ICD Codes: F10.129 - Alcohol abuse with intoxication, unspecified Status: Acute Plan: Alcohol level of 485 on admission. Drinking 6-8 beers/day 4 days a week. - CIWA protocol to monitor for withdrawal. Low scores overnight. Not actively hallucinating. - Ammonia levels high at 52 - MV, thiamine, folic acid - Ativan PRN driven by CIWA scores. - Continue to monitor closely - Alcohol rehab program at discharge - Would benefit from homeless [facility] (2) Abdominal pain ICD Codes: R10.9 - Unspecified abdominal pain Status: Acute Plan: New onset left lower quadrant abdominal pain with palpable mass. Abdominal ultrasound showed there is a slightly inhomogeneous 2.8 cm masslike area isoechoic to the surrounding subcutaneous fat. There are 2 associated very small fluid collections or cystic foci. -Patient receives his heparin injections in his abdomen. (3) Cardiomyopathy ICD Codes: I42.9 - Cardiomyopathy, unspecified Status: Acute Plan: Heart disease risk factors include smoking hx, FH of [place], HTN, HLD. Pt also alcoholic. Previous ECHO on 07/02/16 showed EF 30-35%. CXR showed cardiomegaly, no acute disease. Echocardiogram on 12/03/16 shows EF of 35-40% Acute [place] ruled out. Atypical chest pain. Pt noncompliant with medication in the past Patient is still having chest pain. repeated EKG. No change. -Cardiology consulted-appreciate recs -Don't recommend any intervention at this time due to poor compliance -Continue medical management -Supplemental O2. Daily aspirin. -Metoprolol 25 PO BID aleisha -Lisinopril 2.5mg daily -Telemetry -Daily BMP + Mg (4) Atrial fibrillation ICD Codes: I48.91 - Unspecified atrial fibrillation Status: Acute Plan: History of chronic atrial fibrillation. Last admission did have RVR. Rate is controlled on this admission in low 100s. Was discharged on last hospitalization with Cardizem, but has not taken since discharge. Patient also discharge with Eliquis, has not been taking EKG shows atrial fibrillation. -Monitor with telemetry -Control rate with lisinopril and beta ganesh due to concomitant cardiomyopathy -ACS rule out as above -Consult cardiology as above -Qualifies for anticoagulation due to Afib. Will consider Eliquis upon discharge , however pt at risk from complications due to chronic alcohol use and low platelets (5) COPD exacerbation ICD Codes: J44.1 - Chronic obstructive pulmonary disease with (acute) exacerbation Status: Acute Plan: Desaturations, initially requiring oxygen. History of smoking. CXR (12/04): mild hazy opacity in perihilar regions and lung bases which could represent early infiltrate -Ceftin 500mg BID started on 12/05 -Continue Duonebs -Albuterol PRN -IS (6) Hypomagnesemia ICD Codes: E83.42 - Hypomagnesemia Status: Acute Plan: Magnesium is now normal -Replace if become low again. -Daily Mg levels (7) Hypokalemia ICD Codes: E87.6 - Hypokalemia Status: Acute Plan: Borderline hypokalemic -Replacing as needed daily. -Daily BMP (8) Thrombocytopenia ICD Codes: D69.6 - Thrombocytopenia, unspecified Status: Acute Plan: Plts of 93 on admission, 70 today. No signs of bleeding, Hgb stable. Suspect alcohol related -Continue to monitor - Check liver enzymes Permanent Comment: Last Edited By: Kris Stanley on Dec 06, 2016 14:27 (9) FEN/PPX Status: Acute Plan: Fluids: Normal saline at 42 mL's per hour Electrolytes: Hyponatremia Nutrition: Heart healthy diet DVT ppx: Heparin q12H (Marina Rosario MD R1) Problem Qualifiers (1) Alcohol intoxication: (2) Abdominal pain: Qualified Codes: R10.32 - Left lower quadrant pain (3) Cardiomyopathy: (4) Atrial fibrillation: Marina Rosario MD R1 Dec 11, 2016 12:02 Alba Knox MD Dec 14, 2016 16:43
--- NOTE | 2016-12-11 13:48 | HHI.DS ---
Discharge Summary Admission Date Dec 02, 2016 at 15:26 Discharge Date: Dec 11, 2016 Admitting Diagnosis NSTEMI, a. fib, non compliance, Alcohol intoxication (1) Alcohol intoxication Diagnosis: Principal Plan: Alcohol level of 485 on admission. Drinking 6-8 beers/day 4 days a week. - CIWA protocol to monitor for withdrawal. Low scores overnight. Not actively hallucinating. - Ammonia levels high at 52 - MV, thiamine, folic acid - Ativan PRN driven by CIWA scores. - Continue to monitor closely - Alcohol rehab program at discharge - Would benefit from homeless detention ICD Codes: F10.129 - Alcohol abuse with intoxication, unspecified Status: Acute (2) Abdominal pain Plan: New onset left lower quadrant abdominal pain with palpable mass. Abdominal ultrasound showed there is a slightly inhomogeneous 2.8 cm masslike area isoechoic to the surrounding subcutaneous fat. There are 2 associated very small fluid collections or cystic foci. -Patient receives his heparin injections in his abdomen. ICD Codes: R10.9 - Unspecified abdominal pain Status: Acute (3) Cardiomyopathy Plan: Heart disease risk factors include smoking hx, FH of SD, HTN, HLD. Pt also alcoholic. Previous ECHO on 07/02/16 showed EF 30-35%. CXR showed cardiomegaly, no acute disease. Echocardiogram on 12/03/16 shows EF of 35-40% Acute SD ruled out. Atypical chest pain. Pt noncompliant with medication in the past Patient is still having chest pain. repeated EKG. No change. -Cardiology consulted-appreciate recs -Don't recommend any intervention at this time due to poor compliance -Continue medical management -Supplemental O2. Daily aspirin. -Metoprolol 25 PO BID aleisha -Lisinopril 2.5mg daily -Telemetry -Daily BMP + Mg ICD Codes: I42.9 - Cardiomyopathy, unspecified Status: Acute (4) Atrial fibrillation Plan: History of chronic atrial fibrillation. Last admission did have RVR. Rate is controlled on this admission in low 100s. Was discharged on last hospitalization with Cardizem, but has not taken since discharge. Patient also discharge with Eliquis, has not been taking EKG shows atrial fibrillation. -Monitor with telemetry -Control rate with lisinopril and beta ganesh due to concomitant cardiomyopathy -ACS rule out as above -Consult cardiology as above -Qualifies for anticoagulation due to Afib. Will consider Eliquis upon discharge , however pt at risk from complications due to chronic alcohol use and low platelets ICD Codes: I48.91 - Unspecified atrial fibrillation Status: Acute (5) COPD exacerbation Plan: Desaturations, initially requiring oxygen. History of smoking. CXR (12/04): mild hazy opacity in perihilar regions and lung bases which could represent early infiltrate -Ceftin 500mg BID started on 12/05 -Continue Duonebs -Albuterol PRN -IS ICD Codes: J44.1 - Chronic obstructive pulmonary disease with (acute) exacerbation Status: Acute (6) Hypomagnesemia Plan: Magnesium is now normal -Replace if become low again. -Daily Mg levels ICD Codes: E83.42 - Hypomagnesemia Status: Acute (7) Hypokalemia Plan: Borderline hypokalemic -Replacing as needed daily. -Daily BMP ICD Codes: E87.6 - Hypokalemia Status: Acute (8) Thrombocytopenia Plan: Plts of 93 on admission, 70 today. No signs of bleeding, Hgb stable. Suspect alcohol related -Continue to monitor - Check liver enzymes ICD Codes: D69.6 - Thrombocytopenia, unspecified Status: Acute (9) FEN/PPX Plan: Fluids: Normal saline at 42 mL's per hour Electrolytes: Hyponatremia Nutrition: Heart healthy diet DVT ppx: Heparin q12H Status: Acute Brief History This is a 46-year-old male with history of atrial fibrillation, CHF, SD presents with chest pain. Patient presents by ambulance. Patient states that the chest pain started last night around 10 PM. Was constant through this morning. He not get much sleep. States the pain is mainly in the middle of the chest and the left lower chest. Describes it as a crushing pain. Rates it as 8 out of 10. Says the pain has stayed the same, not worsening or improving. Also endorses shortness of breath with the pain. He states the pain shoots down his left arm. No other radiating pain. Has been feeling nauseous and sweaty. States he's also having some blurry vision lately. Of note, patient was recently admitted in August and discharged with several medication, however he has not taken them. She is currently homeless and does not have any money for the medications. He states he did drink a beer today. Denies any chest pain or shortness of breath at rest. He is worried he had heart attack. CBC/BMP: 12/10/16 0659 12/11/16 0644 Significant Findings Laboratory Tests Test 12/09/16 07:41 12/10/16 06:59 12/11/16 06:44 Platelet Count 128 TH/MM3 (150-450) 131 TH/MM3 (150-450) Albumin 2.7 GM/DL (3.4-5.0) 2.7 GM/DL (3.4-5.0) Magnesium Level 1.2 MG/DL (1.5-2.5) Alkaline Phosphatase 225 U/L (45-117) 213 U/L (45-117) Aspartate Amino Transf (AST/SGOT) 69 U/L (15-37) 96 U/L (15-37) Total Bilirubin 1.1 MG/DL (0.2-1.0) 1.2 MG/DL (0.2-1.0) Sodium Level 134 MEQ/L (136-145) 131 MEQ/L (136-145) 135 MEQ/L (136-145) Random Glucose 71 MG/DL (74-106) Total Protein 8.3 GM/DL (6.4-8.2) Ammonia 52 MCMOL/L (11-32) PE at Discharge CONSTITUTIONAL/GEN: Lying in bed, no acute distress LUNGS: CTAB, no respiratory distress CARDIOVASCULAR: RR without murmur or gallop. No edema. GI/ABD: soft, without organomegaly. Tender to palpation at left lower quadrant. 1.5 cm x 1.5 cm mass in this area with ecchymosis. NEURO: No focal deficits. SKIN: tanned skin; Various abrasions over LE HEME/LYMPH: no bruising, petechia or significant adenopathy PSYCH/MENTAL STATUS: Alert and oriented x 3. Not actively responding to internal stimuli. Hospital Course Mr. Polk is a 46-year-old white male with a past medical history of previous SD , atrial fibrillation, homelessness, and alcoholism who presented to ED on with chest pain. Atrial fibrillation was found on EKG. He was admitted for a NSTEMI. Troponins remained stable 3 at about 0.14. He was intoxicated from alcohol upon admission. He was placed on alcohol withdrawal protocol. Cardiology was consulted, but decided to not do any interventions because of his noncompliance in the past and social situation. He then proceeded to withdraw from alcohol. His alcohol withdrawal slowly improved. He got Ativan overnight if needed. He is now stable without any hallucinations. He is being discharged on 12/11/16 in stable condition on his previous at-home medications. He was encouraged to abstain from alcohol because he was placed on Eliquis. Pt Condition on Discharge: Stable Discharge Disposition: Discharge Home Discharge Instructions DIET: Follow Instructions for: Heart Healthy Diet Activities you can perform: Regular-No Restrictions Follow up Referrals: Cardiology - 1 Week PCP Follow-up - 1 Week New Medications: Apixaban (Eliquis) 5 Mg Tab 5 MG PO BID for Blood Clot Prevention, #60 TAB 0 Refills Atorvastatin (Atorvastatin) 40 Mg Tab 40 MG PO HS, #30 TAB Lisinopril (Lisinopril) 5 Mg Tab 2.5 MG PO DAILY, #30 TAB Metoprolol Tartrate (Metoprolol Tartrate) 25 Mg Tab 25 MG PO Q12HR, #60 TAB Marina Rosario MD R1 Dec 11, 2016 13:48
== END 2016-12-11 12:23 | disposition home or self-care (01) | DRG 281 ==
LOC: NEPE 11:38 → NEDA 15:26 → NEDH 20:13 → N04A 22:45
PROVIDERS: ADMIT Family Medicine; ATTEND Family Medicine
DX: I21.4 Non-ST elevation (NSTEMI) myocardial infarction (principal); F10.231 Alcohol dependence with withdrawal delirium; I42.6 Alcoholic cardiomyopathy; D69.6 Thrombocytopenia, unspecified; E87.1 Hypo-osmolality and hyponatremia; I50.9 Heart failure, unspecified; I11.0 Hypertensive heart disease with heart failure; I48.2 Chronic atrial fibrillation; G40.909 Epilepsy, unspecified, not intractable, without status epilepticus; J44.1 Chronic obstructive pulmonary disease with (acute) exacerbation; E83.42 Hypomagnesemia; E78.5 Hyperlipidemia, unspecified; F10.229 Alcohol dependence with intoxication, unspecified; Y90.8 Blood alcohol level of 240 mg/100 ml or more; I25.2 Old myocardial infarction; Z59.0 Homelessness; K57.90 Diverticulosis of intestine, part unspecified, without perforation or abscess without bleeding; R10.32 Left lower quadrant pain; E83.51 Hypocalcemia; E87.6 Hypokalemia; Z82.49 Family history of ischemic heart disease and other diseases of the circulatory system; Z86.14 Personal history of Methicillin resistant Staphylococcus aureus infection; Z86.74 Personal history of sudden cardiac arrest; Z90.49 Acquired absence of other specified parts of digestive tract; Z91.14 Patient's other noncompliance with medication regimen; F12.90 Cannabis use, unspecified, uncomplicated; F17.210 Nicotine dependence, cigarettes, uncomplicated
CPT/HCPCS: 71010; 76705; 80048; 80053; 80061; 80307; 82140; 82550; 82552; 83735; 83880; 84100; 84155; 84443; 84484; 85025; 85027; 85610; 85730; 93005; 93306; 94150; 94640; 94664; 96360; J1644; J2060; J2405; J3475; J7030

== ENCOUNTER 2016-12-19 11:42 | Emergency (ER) | payer OTHER ==
[~2016-12-19] VITALS: Ht 177.8 cm; Wt 97.0 kg
[~2016-12-19 11:42] MED LIST changes: -ATOR20TA15 PO; +ATOR40TA16 PO; -CARD180C5 PO; -DIGO0.12 PO; -FURO20TA PO; -GNP100TA3 PO; +LISI-519 PO; -MAGN400T3 PO; -POTA1TAB4 PO; -VENTAER INH
[2016-12-19 11:52] VITALS: BP 98/54; PULSE 92; RESP 15; TEMP 98.9; O2SAT 95
[2016-12-19] MEDS ORDERED: ASPIRIN 81 MG CHEW TAB PO ONE (12:00)
[2016-12-19] MEDS ORDERED: SODIUM CHLORIDE 0.9% FLUSH 10 ML FLUSH IVF PRN (12:00)
--- NOTE | 2016-12-19 12:25 | PD ---
HPI Chief Complaint: Chest Pain Time Seen by Provider: 11:54 Travel History International Travel<30 days: No Contact w/Intl Traveler<30days: No Traveled to known affect area: No History of Present Illness HPI 46-year-old man to presents emergency department complaining of chest pain after he was arrested. He apparently called the police as he states he had been robbed. He is an outstanding warrant and so he was arrested. He states that today developed chest pain. Describes left-sided chest pain is been constant since then. Patient is a history of dilated cardiomyopathy likely related to alcohol use, as well as A. fib and hypertension. No other complaints. History Past Medical History Narrative Medical Dilated cardiomyopathy, EF 30//40 percent History of A. fib, on Eliquis Hypertension Tetanus Vaccination: < 5 Years Influenza Vaccination: Yes Social History Alcohol Use: Yes (DAILY BEER) Tobacco Use: Yes (15 cigs a day) Allergies-Medications (Allergen,Severity, Reaction): Coded Allergies: *MDRO Multi-Drug Resistant Organism (Verified Adverse Reaction, Unknown, ) MRSA PCR Screen POSITIVE - 07/02/2016, 08/19/2016 MRSA (sputum)-07/02/16 Reported Meds & Prescriptions Reported Meds & Active Scripts Active Eliquis (Apixaban) 5 Mg Tab 5 Mg PO BID Lisinopril 5 Mg Tab 2.5 Mg PO DAILY Metoprolol Tartrate 25 Mg Tab 25 Mg PO Q12HR Atorvastatin (Atorvastatin Calcium) 40 Mg Tab 40 Mg PO HS Review of Systems Except as stated in HPI: all other systems reviewed are Neg Physical Exam Narrative GENERAL: 46-year-old man, slightly agitated, nontoxic. Little bit slow to answer questions, appears slightly intoxicated, may be volitional. SKIN: Focused skin assessment warm/dry. HEAD: Atraumatic. Normocephalic. EYES: Pupils equal and round. No scleral icterus. Sclera are injected bilaterally. ENT: No nasal bleeding or discharge. Mucous membranes pink and moist. NECK: Trachea midline. No JVD. CARDIOVASCULAR: Heart rates irregular, no murmurs. RESPIRATORY: No accessory muscle use. Clear to auscultation. Breath sounds equal bilaterally. GASTROINTESTINAL: Abdomen soft, non-tender, nondistended. Hepatic and splenic margins not palpable. MUSCULOSKELETAL: No obvious deformities. Trace edema. NEUROLOGICAL: Awake and alert. No obvious cranial nerve deficits. Motor grossly within normal limits. Speech is a little bit slurred. PSYCHIATRIC: Agitated. Data Data Last Documented VS Vital Signs Date Time Temp Pulse Resp B/P (MAP) Pulse Ox O2 Delivery O2 Flow Rate FiO2 12/19/16 12:01 94 Nasal Cannula 2.00 12/19/16 11:52 98.9 92 15 98/54 (69) Orders Orders Electrocardiogram (12/19/16 11:54) Complete Blood Count With Diff (12/19/16 11:54) Comprehensive Metabolic Panel (12/19/16 11:54) Troponin I (12/19/16 11:54) Chest, Single Ap (12/19/16 11:54) Ecg Monitoring (12/19/16 11:54) Iv Access Insert/Monitor (12/19/16 11:54) Oximetry (12/19/16 11:54) Oxygen Administration (12/19/16 11:54) Aspirin Chew (Aspirin Chew) (12/19/16 12:00) Sodium Chloride 0.9% Flush (Ns Flush) (12/19/16 12:00) Diet Heart Healthy (12/19/16 Lunch) Calcium Gluconate Inj (Calcium Gluconate (12/19/16 13:30) Calcium Carbonate Chew (Tums Chew) (12/19/16 13:30) Labs Laboratory Tests Test 12/19/16 12:00 White Blood Count 10.5 TH/MM3 Red Blood Count 3.89 MIL/MM3 Hemoglobin 13.1 GM/DL Hematocrit 38.0 % Mean Corpuscular Volume 97.7 FL Mean Corpuscular Hemoglobin 33.6 PG Mean Corpuscular Hemoglobin Concent 34.4 % Red Cell Distribution Width 13.4 % Platelet Count 264 TH/MM3 Mean Platelet Volume 7.4 FL Neutrophils (%) (Auto) 64.0 % Lymphocytes (%) (Auto) 27.1 % Monocytes (%) (Auto) 5.9 % Eosinophils (%) (Auto) 1.5 % Basophils (%) (Auto) 1.5 % Neutrophils # (Auto) 6.7 TH/MM3 Lymphocytes # (Auto) 2.8 TH/MM3 Monocytes # (Auto) 0.6 TH/MM3 Eosinophils # (Auto) 0.2 TH/MM3 Basophils # (Auto) 0.2 TH/MM3 CBC Comment DIFF FINAL Differential Comment Blood Urea Nitrogen 13 MG/DL Creatinine 0.85 MG/DL Random Glucose 78 MG/DL Total Protein 7.7 GM/DL Albumin 2.8 GM/DL Calcium Level 7.3 MG/DL Alkaline Phosphatase 168 U/L Aspartate Amino Transf (AST/SGOT) 84 U/L Alanine Aminotransferase (ALT/SGPT) 71 U/L Total Bilirubin 0.4 MG/DL Sodium Level 142 MEQ/L Potassium Level 3.5 MEQ/L Chloride Level 108 MEQ/L Carbon Dioxide Level 22.9 MEQ/L Anion Gap 11 MEQ/L Estimat Glomerular Filtration Rate 97 ML/MIN Protein Corrected Calcium 7.1 MG/DL Troponin I LESS THAN 0.02 NG/ML MDM Medical Decision Making Medical Screen Exam Complete: Yes Emergency Medical Condition: Yes Interpretation(s) My review of EKG: A. fib at a rate of 85, slightly leftward axis, leftward axis , normal intervals, no definite evidence of acute ischemia. LABS: CBC is unremarkable. CMP remarkable for low calcium. Troponins negative. Chest x-ray: Compensated cardiomegaly. Otherwise negative. Differential Diagnosis Chest pain, ACS, cardiomyopathy, dehydration, malingering Narrative Course Medical decision-making 46-year-old male multiple previous presentations for chest pain, known dilated cardiomyopathy, known A. fib, and medication noncompliance. Presents ED complaining of chest pain after being arrested. We'll check EKG and labs, provide medical clearance. FINAL: Calcium is low, QTC is normal, given some calcium here, recommend avoid alcohol and take calcium supplements as prescribed. Diagnosis Primary Impression: Chest pain Additional Impressions: Cardiomyopathy Hypocalcemia Additional Instructions: Continue current medications. Avoid drinking alcohol. Take calcium as prescribed. Follow-up with your primary doctor in 3-5 days. Return to the emergency department for any new or worsening symptoms. Med/Other Pt SpecificInfo: Prescription(s) given Scripts Calcium Carbonate (Antacid Calcium) 215 Mg Calcium (500 Mg) Tab.chew 1 TAB PO BID for 14 Days Prov: Kash Trevino MD 12/19/16 Disposition: 01 DISCHARGE HOME Condition: Stable Kash Trevino MD Dec 19, 2016 12:25
[2016-12-19 12:47] LABS: AUTOMATED NEUTROPHIL # 6.7 TH/MM3 (1.8-7.7); BASOPHIL # 0.2 TH/MM3 (0-0.2); BASOPHIL % 1.5 % (0.0-2.0); EOSINOPHIL # 0.2 TH/MM3 (0-0.4); EOSINOPHIL % 1.5 % (0.0-4.0); HEMO FLAGS DIFF FINAL; LYMPH % 27.1 % (9.0-44.0); LYMPHOCYTE # 2.8 TH/MM3 (1.0-4.8); MEAN CELL VOLUME 97.7 FL (80.0-100.0); MEAN CORPUSCULAR HEMOGLOBIN 33.6 PG (27.0-34.0); MEAN CORPUSCULAR HGB CONC 34.4 % (32.0-36.0); MONO % 5.9 % (0.0-8.0); PLATELET COUNT 264 TH/MM3 (150-450); RED BLOOD COUNT 3.89 MIL/MM3 (4.50-5.90); RED CELL DISTRIBUTION WIDTH 13.4 % (11.6-17.2); WHITE BLOOD COUNT 10.5 TH/MM3 (4.0-11.0)
[2016-12-19 13:00] VITALS: BP 106/66; PULSE 80; RESP 18; O2SAT 98
--- NOTE | 2016-12-19 13:09 | RADRPT ---
EXAM DATE/TIME: 12/19/2016 12:33 [facility] COMPARISON: CHEST SINGLE AP, December 04, 2016, 12:36. INDICATIONS : Chest pain and shortness of breath. MEDICAL HISTORY : Congestive heart failure. Hypertension Chronic obstructive pulmonary disease. Myocardial infarcti on. Seizures. Cardiovascular disease. SURGICAL HISTORY : None. ENCOUNTER: Initial ACUITY: 1 day PAIN SCORE: 4/10 LOCATION: Bilateral chest FINDINGS: The lungs are clear. The heart is minimally enlarged. The pulmonary vascularity is normal. There is n o evidence for infiltrate or failure. The portion of the bony skeleton visualized is unremarkable. CONCLUSION: Compensated cardiomegaly otherwise negative; cardiac silhouette is prominent in this 46 year-old. . Francisco Lee MD FACR on December 19, 2016 at 13:07 Board Certified Radiologist. This report was verified electronically.
[2016-12-19 13:17] LABS: ALKALINE PHOSPHATASE 168 U/L (45-117); ALT (GPT) 71 U/L (12-78); ANION GAP 11 MEQ/L (5-15); AST (GOT) 84 U/L (15-37); BICARBONATE 22.9 MEQ/L (21.0-32.0); BLOOD UREA NITROGEN 13 MG/DL (7-18); CHLORIDE 108 MEQ/L (98-107); GLOMERULAR FILTRATION RATE 97 ML/MIN (>89); POTASSIUM 3.5 MEQ/L (3.5-5.1); SODIUM (NA) 142 MEQ/L (136-145); TOTAL BILIRUBIN ADULT 0.4 MG/DL (0.2-1.0)
[2016-12-19 13:25] LABS: CALCIUM-PROTEIN CORRECTED 7.1 MG/DL (8.5-10.1)
[2016-12-19] MEDS ORDERED: CALCIUM GLUCONATE INJ 1 GM in SODIUM CHLORIDE 0.9% INJ 100 ML IV ONE (13:30)
[2016-12-19] MEDS ORDERED: CALCIUM CARBONATE 500 MG CHEWABLE TAB CHEW ONE (13:30)
[2016-12-19] MEDS ORDERED: [UNRECOGNIZED DRUG - CODE] PO (13:31)
[2016-12-19 14:00] VITALS: BP 83/51; PULSE 82; RESP 16; O2SAT 99
[2016-12-19 15:00] VITALS: BP 131/60; PULSE 76; RESP 18; O2SAT 98
--- NOTE | 2016-12-19 17:23 | EKG ---
Date Performed: 12/19/2016 Time Performed: 11:57:07 PTAGE: 46 years EKG: ATRIAL FIBRILLATION MARKED LEFT AXIS DEVIATION POSSIBLE RIGHT VENTRICULAR CONDUCTION DELAY ABNORMAL ECG PREVIOUS TRACING : 12/09/2016 10.55 DOCTOR: Kash Hughes Interpretating Date/Time 12/19/2016 17:21:16
== END 2016-12-19 16:00 | disposition home or self-care (01) ==
LOC: NEPC 11:42
DX: R07.9 Chest pain, unspecified (principal); I42.0 Dilated cardiomyopathy; E83.51 Hypocalcemia; I48.91 Unspecified atrial fibrillation; F17.210 Nicotine dependence, cigarettes, uncomplicated; Z79.01 Long term (current) use of anticoagulants
CPT/HCPCS: 71010; 80053; 84484; 85025; 93005; 96365; 99285; J0610